=== PATIENT | female | born 1985 | race Caucasian/White ===

== ENCOUNTER → 2016-06-14 | Outpatient (CLI) | payer OTHER ==
[~2016-06-14] MED LIST: /DIVA50TA PO; /QUET10TA OR; /QUET10TA PO; ABIL15TA PO; ABIL1TAB5 PO; COGE1INJ PO; COGENTIN PO; DEPA250T2 PO; DEPA500T OR; DEPA500T2 OR; DEPA500T2 PO; FLAG500T PO; HALD100I2 IM; HALDOL PO; LAMI50TA2 PO; LATU120T PO; LATU40TA PO; LIDO1DIS2 TD; LITH150C PO; LITH300T2 PO; LITH600C PO; MACR100C3 PO; NAPR375T2 PO; OLAN15TA PO; PERC5TAB6 PO; PRENTAB7 PO; QUET30TA OR; TRAZ100T4 PO; TRAZ150T PO; VIST25CA PO; VIST50CA PO; ZYPR10TA PO
[2016-06-14 13:26] LABS: BASO % 0.4 % (0.0-1.0); EOS # 0.2 K/mm3 (0.0-0.50); LARGE UNSTAINED CELL # 0.2 K/mm3 (0.0-0.4); LARGE UNSTAINED CELL % 2.6 % (0.0-4.0); LYMPH # 3.5 K/mm3 (1.5-6.5); LYMPH % 44.4 % (24.0-44.0); MEAN CORPUSCULAR HEMOGLOBIN 29.1 pg (27.0-33.0); MEAN CORPUSCULAR HGB CONC 32.6 g/dl (32.0-36.5); MEAN CORPUSCULAR VOLUME 89.3 fl (80.0-96.0); MONO # 0.4 K/mm3 (0.0-0.8); MONO % 5.6 % (0.0-5.0); NEUTROPHILS # 3.5 K/mm3 (1.8-7.7); NEUTROPHILS % 44.1 % (36.0-66.0); PLATELET COUNT, AUTOMATED 201 k/mm3 (150-450); RED CELL DISTRIBUTION WIDTH 12.7 % (11.5-14.5); WHITE BLOOD COUNT 7.8 K/mm3 (4.0-10.0)
== END ==
LOC: M SMT 10:52
PROVIDERS: ATTEND Specialist
DX: D69.6 Thrombocytopenia, unspecified (principal)

== ENCOUNTER → 2016-10-10 | Outpatient (CLI) | payer OTHER ==
--- NOTE | 2016-10-11 12:37 | REP ---
NUCLEAR THYROID UPTAKE AND SCAN: Following the oral administration of 379 microcuries of Iodine 123 of sodium iodine, thyroid uptake is measured. The 24 hour uptake is 21.6% which is slightly below the normal range of 25-35%. Thyroid scan is performed. Both the lobes appear relatively normal in size, right slightly larger than left. No focal hot or cold nodule is seen bilaterally. Signed by Sagar Macedo MD 10/11/2016 04:08 P
== END ==
LOC: M RAD 10:30
PROVIDERS: ATTEND Family Medicine
DX: E05.90 Thyrotoxicosis, unspecified without thyrotoxic crisis or storm (principal)

== ENCOUNTER 2016-10-16 17:53 | Emergency (ER) | payer OTHER ==
[~2016-10-16] VITALS: Ht 154.9 cm; Wt 63.5 kg
[2016-10-16 18:47] LABS: MEAN CORPUSCULAR HEMOGLOBIN 28.8 pg (27.0-33.0); MEAN CORPUSCULAR HGB CONC 33.2 g/dl (32.0-36.5); MEAN CORPUSCULAR VOLUME 86.7 fl (80.0-96.0); RED CELL DISTRIBUTION WIDTH 13.1 % (11.5-14.5); WHITE BLOOD COUNT 11.3 K/mm3 (4.0-10.0)
[2016-10-16 18:53] LABS: CONTROL LINE HCG INT CTR LINE PRESENT
[2016-10-16 19:04] LABS: METHADONE URINE NEGATIVE (NEGATIVE)
[2016-10-16 19:10] LABS: ALBUMIN/GLOBULIN RATIO 1.38 (1.00-1.93); ALKALINE PHOSPHATASE 69 U/L (45-117); ALT/SGPT 82 U/L (12-78); ANION GAP 10 MEQ/L (8-16); AST/SGOT 56 U/L (15-37); BILIRUBIN,DIRECT 0.2 MG/DL (0.0-0.2); BILIRUBIN,TOTAL 0.5 MG/DL (0.2-1.0); BLOOD UREA NITROGEN 13 MG/DL (7-18); CALCIUM LEVEL 8.6 MG/DL (8.5-10.1); CARBON DIOXIDE LEVEL 26 MEQ/L (21-32); CHLORIDE LEVEL 103 MEQ/L (98-107); CREATININE FOR GFR 0.69 MG/DL (0.55-1.02); GLOMERULAR FILTRATION RATE > 60.0 (>60); GLUCOSE, FASTING 123 MG/DL (70-105); POTASSIUM SERUM 3.4 MEQ/L (3.5-5.1); SODIUM LEVEL 139 MEQ/L (136-145); TOTAL PROTEIN 6.9 GM/DL (6.4-8.2)
[2016-10-16] MEDS ORDERED: HALOPERIDOL 5 MG/ML VIAL (J1630) IM STA (19:37)
[2016-10-16] MEDS ORDERED: LORazepam 2 MG/ML VIAL (J2060) IM STA (19:37)
[2016-10-16] MEDS ORDERED: diphenhydrAMINE INJ 50MG/ML VIAL (J1200) IM STA (19:37)
[2016-10-17] MEDS ORDERED: LORazepam 2 MG/ML VIAL (J2060) IM ONE ×2 (05:00→06:00)
[2016-10-17] MEDS ORDERED: ACETAMINOPHEN TAB 650MG DOSE (2X325MG) PO ONE (05:30)
[2016-10-17] MEDS ORDERED: HALOPERIDOL 5 MG/ML VIAL (J1630) IM ONE (06:00)
[2016-10-17] MEDS ORDERED: diphenhydrAMINE INJ 50MG/ML VIAL (J1200) IM ONE (06:00)
[2016-10-17] MEDS ORDERED: AMMONIA AROMATIC INHALANT (FLOOR STOCK) As Ordered ONE ×2 (08:57→10:16)
[2016-10-17 15:10] VITALS: BP 110/68
--- NOTE | 2016-10-17 21:02 | ECGEPIP ---
Stationary ECG Study [facility] - ED Test Date: 2016-10-17 Pat Name: DOROTEO AC Department: Room: - Gender: F [employer]: : 1985 Requested By: KATHY Palacios Order Number: [id number] Reading MD: Jose Bergman Measurements Intervals [place] Rate: 78 P: 67 [place]: 139 QRS: 89 QRSD: 99 T: 49 QT: 386 QTc: 440 Interpretive Statements SINUS RHYTHM WITH SINUS ARRHYTHMIA DIFFUSE ST ELEVATION - EARLY REPOLARIZATION VS PERICARDITIS CW 01/10/14 - RATE DECREASED ST SEGMENTS MORE ELEVATED CLINICALLY CORRELATE Electronically Signed On 10-17-2016 21:02:30 EDT by Jose Bergman
[2016-10-18] MEDS ORDERED: SUMA25TA3 PO (14:11)
[2016-10-18] MEDS ORDERED: TOPA25TA10 PO (14:11)
[2016-10-18] MEDS ORDERED: KETO10TAB PO (14:13)
== END 2016-10-17 15:13 ==
LOC: M ED 19:16
DX: F29 Unspecified psychosis not due to a substance or known physiological condition (principal); R45.851 Suicidal ideations; Z79.899 Other long term (current) drug therapy; Z88.5 Allergy status to narcotic agent; Z88.8 Allergy status to other drugs, medicaments and biological substances; J30.1 Allergic rhinitis due to pollen; J30.89 Other allergic rhinitis; Z91.040 Latex allergy status; F17.210 Nicotine dependence, cigarettes, uncomplicated

== ENCOUNTER 2016-10-17 16:39 | Inpatient (IN) | payer OTHER ==
[~2016-10-17] VITALS: Ht 154.9 cm; Wt 65.2 kg
[2016-10-18] MEDS ORDERED: ACETAMINOPHEN TAB 650MG DOSE (2X325MG) PO ONE (01:30)
[2016-10-18] MEDS ORDERED: NICOTINE 21MG/24HR 1 EA TRANSDERMAL TD ONE (10:00)
[2016-10-18 12:11] VITALS: BP 143/83
[2016-10-18] MEDS ORDERED: SUMA25TA3 PO (14:11)
[2016-10-18] MEDS ORDERED: TOPA25TA10 PO (14:11)
[2016-10-18] MEDS ORDERED: KETO10TAB PO (14:13)
--- NOTE | 2016-10-18 15:58 | HPEPDOC ---
Medical History and Physical Date of Admission October 18, 2016 at 11:12 History and Physical PCP: Dr Storey ATTENDING: Dr. Jaiden Delgado HPI: 31yoF admitted to [facility] for depressive disorder, being medically examined today. No acute medical complaints today. Denies any fevers, chills, weakness, fatigue, BEARD, CP, SOB, cough, palpitations, abdominal pain, N/V/D or changes in bowel or bladder habits. PMHx: ITP Bipolar disorder Schizophrenia Vitamin D Def Thyroid nodule migraine BEARD PSHX: C section x 3 tonsillectomy tubal ligation. SOCHX: Resides in: [facility] Marital Status: single Kids: 3 Employment: unemployed Tobacco use: 1ppd ETOH:denies Illicit Drugs: "spice" x 1 recently, marijuana daily IV Drug Use: Denies Tattoos done unprofessionally:x 1 FAMHX: Mother: Alive, unknown Father: Alive, well Siblings: Alive, depression Children: Alive, well Unexpected deaths due to medical reasons: None. ROS: As noted in HPI, otherwise 11pt ROS of systems reviewed and remarkable only for LMP unknown PE: GEN: 31yoF, appears stated age. Well-nourished, well developed. No acute distress. Alert and oriented x 3. Pressured, tangential speech. HEENT: Normocephalic, atraumatic. Pupils are equal, round, and reactive to light. Extraocular movements are intact. No nystagmus appreciated. Sclera are nonicteric. Conjunctiva without injection. Nose midline. Nasal turbinates without bogginess. EACs both patent BL. TMs both visualized and garcia with good cone of light, no bulging or erythema. No facial asymmetry. Moist mucous membranes. Dentition fair. Pharynx pink and moist, no cobblestoning. Neck supple , trachea midline. No lymphadenopathy or thyromegaly appreciated. CHEST: Regular rate and rhythm, +S1, +S2 LUNGS: Clear to auscultation bilaterally. No wheezes, rales, or rhonchi. Breathing appears symmetric and easy. Patient is speaking in full sentences. No accessory muscle use. ABD: Round, soft, non-tender, non-distended. +Bowel sounds throughout. No rebound or guarding. No costovertebral angle tenderness. EXT: Pulses 2+ bilaterally dorsalis pedis and radial. No lower extremity edema appreciated. SKIN: [place], dry, warm. Capillary refill <2sec. No rashes. NEURO: Alert and oriented x 3. Cranial nerves III-XII are intact. No focal deficits appreciated. EKG: pending. A&P: 31yoF admitted to [facility] for depressive disorder 1. Psych. Plan per Psychiatry. Obtain baseline EKG to assure the safety of psychiatric medications as they can prolong the QT interval. 2. Nicotine dependence. Patch available. 3. Tattoo done unprofessionally. Requests HIV/Hepatitis screening. 4. Follow up with PCP on discharge. 5. Substance use. Per psychiatry. Continue with MVI, Thiamine, and Folic Acid supplementation. 6. Recent treatment for STI per pt. Check UA/UC, gonorrhea and chlamydia screen. 7. Hypokalemia. Recheck CMP. 8. Elevated LFTs. Hepatitis profile as above and recheck CMP. 9. Abnormal TFT. Pt states has been referred to Endocrine, appt pending. Recheck TFT. 10. Vitamin D Def. Check Vitamin D level. Vital Signs Vital Signs Date Time Temp Pulse Resp B/P (MAP) Pulse Ox O2 Delivery O2 Flow Rate FiO2 10/18/16 12:11 98.0 104 16 143/83 (103) Room Air 10/18/16 11:53 98 Laboratory Data Labs 24H Item Value Date Time White Blood Count 11.3 K/mm3 H 10/16/161827 Red Blood Count 4.34 M/mm3 10/16/161827 Hemoglobin 12.5 g/dl 10/16/161827 Hematocrit 37.6 % 10/16/161827 Mean Corpuscular Volume 86.7 fl 10/16/161827 Mean Corpuscular Hemoglobin 28.8 pg 10/16/161827 Mean Corpuscular Hemoglobin Concent 33.2 g/dl 10/16/161827 Red Cell Distribution Width 13.1 % 10/16/161827 Platelet Count 213 k/mm3 10/16/161827 Sodium Level 139 MEQ/L 10/16/161827 Potassium Level 3.4 MEQ/L L 10/16/161827 Chloride Level 103 MEQ/L 10/16/161827 Carbon Dioxide Level 26 MEQ/L 10/16/161827 Anion Gap 10 MEQ/L 10/16/161827 Blood Urea Nitrogen 13 MG/DL 10/16/161827 Creatinine 0.69 MG/DL 10/16/161827 Glomerular Filtration Rate > 60.0 10/16/161827 Fasting Glucose 123 MG/DL H 10/16/168 Calcium Level 8.6 MG/DL 10/16/168 Total Bilirubin 0.5 MG/DL 10/16/168 Direct Bilirubin 0.2 MG/DL 10/16/161827 Aspartate Amino Transf (AST/SGOT) 56 U/L H 10/16/168 Alanine Aminotransferase (ALT/SGPT) 82 U/L H 10/16/161827 Alkaline Phosphatase 69 U/L 10/16/161827 Total Protein 6.9 GM/DL 10/16/161827 Albumin 4.0 GM/DL 10/16/161827 Albumin/Globulin Ratio 1.38 10/16/161827 Thyroid Stimulating Hormone (TSH) 0.352 uIU/ML L 10/16/161827 Human Chorionic Gonadotropin, Qual NEGATIVE 10/16/161827 Home Medications Scheduled Topiramate (Topamax) 25 Mg Tab, 25 MG PO DAILY for MOOD Scheduled PRN Ketorolac Tromethamine (Ketorolac Tromethamine) 10 Mg Tab, 10 MG PO QIDP PRN for HEADACHE Sumatriptan Succinate (Sumatriptan Succinate) 25 Mg Tab, 25 MG PO DAILYPRN PRN for HEADACHE Allergies Coded Allergies: Codeine (Verified Allergy, Intermediate, HIVES, VOMITING, 12/30/13) Hydrocodone (Verified Allergy, Intermediate, HIVES, ITCHING, 04/21/16) Dust (Verified Allergy, Unknown, 06/06/06) Pollen Extract (Verified Allergy, Unknown, 09/03/12) Ibuprofen (Verified Adverse Reaction, Severe, PT CANNOT TAKE DUE TO ITP, 04/21/16) Aspirin (Verified Adverse Reaction, Intermediate, NOT ALLERGIC, BUT ITP, ) Latex (Verified Adverse Reaction, Mild, ITCHING FROM CONDOMS, 04/21/16) Angelina Sutherland October 18, 2016 15:58
[2016-10-18] MEDS ORDERED: HALOPERIDOL 5 MG TAB PO ONE (16:00)
[2016-10-18] MEDS: ACETAMINOPHEN TAB 650MG DOSE (2X325MG) PO PRN (16:20)
[2016-10-18 18:23] VITALS: BP 108/70
[2016-10-18] MEDS: traZODone 50 MG TAB PO PRN (19:38)
[2016-10-18] MEDS: HALOPERIDOL 5 MG TAB PO PRN (19:39)
[2016-10-18] MEDS: SUMAtriptan SUCCINATE 25 MG TAB PO PRN (19:39)
[2016-10-18] MEDS: diphenhydrAMINE 25 MG CAP PO PRN (19:39)
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
--- NOTE | 2016-10-19 06:12 | ECGEPIP ---
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
[2016-10-19 06:23] VITALS: BP 119/79
[2016-10-19 07:26] LABS: MEAN CORPUSCULAR HEMOGLOBIN 29.3 pg (27.0-33.0); MEAN CORPUSCULAR HGB CONC 32.1 g/dl (32.0-36.5); MEAN CORPUSCULAR VOLUME 91.1 fl (80.0-96.0); RED CELL DISTRIBUTION WIDTH 13.1 % (11.5-14.5); WHITE BLOOD COUNT 7.8 K/mm3 (4.0-10.0)
[2016-10-19 07:49] LABS: ALBUMIN 3.5 GM/DL (3.2-5.2); ALBUMIN/GLOBULIN RATIO 1.25 (1.00-1.93); ALKALINE PHOSPHATASE 62 U/L (45-117); ALT/SGPT 44 U/L (12-78); ANION GAP 5 MEQ/L (8-16); AST/SGOT 18 U/L (15-37); BILIRUBIN,TOTAL 0.2 MG/DL (0.2-1.0); BLOOD UREA NITROGEN 12 MG/DL (7-18); CALCIUM LEVEL 8.4 MG/DL (8.5-10.1); CARBON DIOXIDE LEVEL 30 MEQ/L (21-32); CHLORIDE LEVEL 107 MEQ/L (98-107); GLOMERULAR FILTRATION RATE > 60.0 (>60); GLUCOSE, FASTING 102 MG/DL (70-105); POTASSIUM SERUM 3.9 MEQ/L (3.5-5.1); SODIUM LEVEL 142 MEQ/L (136-145); TOTAL PROTEIN 6.3 GM/DL (6.4-8.2)
[2016-10-19 07:56] LABS: THYROXINE (T4) 8.9 UG/DL (4.5-12.0)
[2016-10-19] MEDS: ACETAMINOPHEN TAB 650MG DOSE (2X325MG) PO PRN (08:47)
[2016-10-19] MEDS ORDERED: HALOPERIDOL 5 MG TAB PO SCH (09:00)
[2016-10-19] MEDS ORDERED: NICOTINE 21MG/24HR 1 EA TRANSDERMAL TD SCH (09:00)
[2016-10-19] MEDS ORDERED: BENZTROPINE 1 MG TAB PO STA (15:39)
[2016-10-19 18:14] VITALS: BP 130/86
[2016-10-19] MEDS: diphenhydrAMINE 25 MG CAP PO PRN (18:16)
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
[2016-10-19] MEDS: BENZTROPINE 1 MG TAB PO SCH (20:51)
[2016-10-19] MEDS: traZODone 50 MG TAB PO PRN (20:51)
[2016-10-19] MEDS: SUMAtriptan SUCCINATE 25 MG TAB PO PRN (21:28)
[2016-10-20] MEDS: diphenhydrAMINE 25 MG CAP PO PRN (01:07)
[2016-10-20] MEDS: ACETAMINOPHEN TAB 650MG DOSE (2X325MG) PO PRN ×3 (01:08→14:36)
[2016-10-20 06:39] VITALS: BP 111/63
[2016-10-20] MEDS: HALOPERIDOL 5 MG TAB PO SCH (08:39)
[2016-10-20] MEDS: BENZTROPINE 1 MG TAB PO SCH (08:39)
[2016-10-20] MEDS: NICOTINE POLACRILEX 2 MG GUM PO PRN ×4 (08:42→16:40)
[2016-10-20] MEDS: HALOPERIDOL 5 MG TAB PO PRN (13:10)
--- NOTE | 2016-10-20 15:53 | MHIPNPDOC ---
[facility] Progress Note Progress Note DATE OF SERVICE: 10/20/16 INTERVAL HISTORY: Medication Side effects: Made no complain about any side effects from her medications today Behavior/events: Has been less distorted and more engaging in the social milieu Group Attendance: Has attended groups more frequently, was observed for 1 hour during this provider's medication information group. The patient did not want to meet individually as she was "setting up an appointment for her kids". She had talked to the attending psychiatrist's earlier in the day stating that she at first wanted to leave but then realize she needed to stay because she need to get on the "best medication". Psychiatric Symptoms: The patient appears to be clearing and becoming less distorted. She appears to be less hyperverbal than yesterday and more able to control her temper, although she has had some angry outbursts over the last evening. VITAL SIGNS: See below. NEW TEST RESULTS: See below CURRENT MEDICATIONS: See below. MENTAL STATUS EXAMINATION: General: Well dressed with good hygiene Speech: Spontaneous and fluid Thought processes: Mildly circumstantial Thought content: Perseverative Abstract reasoning, and computation: Intact Description of associations: Intact Description of abnormal or psychotic thoughts: Makes no threats towards herself or others. Does endorse some odd beliefs. Judgment: Poor Insight: Poor Orientation: Appears alert and orientated just rounding's Recent and remote memory: Intact Attention span and concentration: Improved Fund of knowledge: Adequate Mood: "Fine" Affect: Somewhat irritable DIAGNOSES: 1. Synthetic marijuana intoxication. 2. Antisocial personality disorder. 3. Cannabis use disorder, severe, in controlled setting. ASSESSMENT: 31-year-old woman with synthetic spice intoxication underlying antisocial personality disorder whom appears to be resolving with a small dose of Haldol. MANAGEMENT PLAN: Medications: continue Haldol 2.5 mg daily and Cogentin 1 mg twice a day. [place] has immune stimulating properties that could be problematic in a patient with ITP, risk doesn't out weight benefit especially with patient having a history of non-compliance in the past once going outpatient. Psychotherapy: Encourage group attendance Social: Possible discharge on Monday Misc: die lay out worker neck with patient's community liaison officer to gather further information Disposition: The patient will need of further inpatient stay to address psychotic symptoms and disposition needs. TIME SPENT: 25 minutes. Vital Signs Vital Signs Date Time Temp Pulse Resp B/P (MAP) Pulse Ox O2 Delivery O2 Flow Rate FiO2 10/20/16 06:39 99.7 96 18 111/63 (79) 10/19/16 06:23 Room Air 10/18/16 11:53 98 Current Medications Current Medications Acetaminophen (Tylenol Tab) 650 mg Q6HP PRN PO HEADACHE or DISCOMFORT Last administered on 10/20/16 14:36; Start 10/18/16 at 15:45; Stop 11/17/16 at 15:44 Benztropine Mesylate (Cogentin) 1 mg BID PO Last administered on 10/20/16 08: 39; Start 10/19/16 at 21:00; Stop 11/18/16 at 20:59 Benztropine Mesylate (Cogentin) 1 mg STAT STAT PO Last administered on 15:47; Start 10/19/16 at 15:39; Stop 10/19/16 at 15:42; Status DC Diphenhydramine HCl (Benadryl) 25 mg Q6HP PRN PO ANXIETY/AGITATION Last administered on 10/20/16 01:07; Start 10/18/16 at 15:45; Stop 11/17/16 at 15:44 Haloperidol (Haldol) 2.5 mg DAILY PO Last administered on 10/20/16 08:39; Start 10/20/16 at 09:00; Stop 11/19/16 at 08:59 Haloperidol (Haldol) 5 mg DAILY PO Last administered on 10/19/16 08:46; Start 10/19/16 at 09:00; Stop 10/19/16 at 19:15; Status DC Haloperidol (Haldol) 5 mg Q6HP PRN PO ANXIETY/AGITATION Last administered on 13:10; Start 10/18/16 at 15:45; Stop 11/17/16 at 15:44 Home Med (Med Rec Complete!) ASDIRECTED XX ; Start 10/17/16 at 19:45; Stop at 19:45; Status DC Nicotine (Nicoderm Cq 21mg) 1 patch DAILY TD Last administered on 10/19/16 10: 53; Start 10/19/16 at 09:00; Stop 10/19/16 at 15:42; Status DC Nicotine (Nicorette) 2 mg Q2HP PRN PO NICOTINE WITHDRAWAL Last administered on 10/20/16 14:35; Start 10/19/16 at 10:45; Stop 11/18/16 at 10:44 Sumatriptan Succinate (Imitrex) 25 mg DAILYPRN PRN PO HEADACHE Last administered on 10/19/16 21:28; Start 10/18/16 at 15:45; Stop 11/17/16 at 15:44 Trazodone HCl (Desyrel) 50 mg QHSP PRN PO INSOMNIA Last administered on 20:51; Start 10/18/16 at 15:45; Stop 11/17/16 at 15:44 Allergies Coded Allergies: Codeine (Verified Allergy, Intermediate, HIVES, VOMITING, 12/30/13) Hydrocodone (Verified Allergy, Intermediate, HIVES, ITCHING, 04/21/16) Dust (Verified Allergy, Unknown, 06/06/06) Pollen Extract (Verified Allergy, Unknown, 09/03/12) Ibuprofen (Verified Adverse Reaction, Severe, PT CANNOT TAKE DUE TO ITP, 04/21/16) Aspirin (Verified Adverse Reaction, Intermediate, NOT ALLERGIC, BUT ITP, ) Latex (Verified Adverse Reaction, Mild, ITCHING FROM CONDOMS, 04/21/16) GME ATTESTATION My preceptor for this patient encounter was physically present in the building during the encounter and was fully available. As needed, all aspects of the patient interview, examination, medical decision making process, and medical care plan development were reviewed and approved by the preceptor. Preceptor is aware and concurs with the plan as stated in the body of this note and will attest to such by his/her cosignature. DAGO GAMEZ DO October 20, 2016 15:53
[2016-10-20 18:00] VITALS: BP 138/79
[2016-10-20] MEDS ORDERED: LITHIUM CARBONATE 300 MG **CR** TAB PO SCH (21:00)
[2016-10-21] MEDS: HALOPERIDOL 5 MG TAB PO PRN (01:33)
[2016-10-21] MEDS: BENZTROPINE 1 MG TAB PO SCH ×3 (01:33→20:21)
[2016-10-21] MEDS: traZODone 50 MG TAB PO PRN ×2 (01:33→22:18)
[2016-10-21] MEDS: ACETAMINOPHEN TAB 650MG DOSE (2X325MG) PO PRN ×2 (01:33→15:30)
[2016-10-21] MEDS: NICOTINE POLACRILEX 2 MG GUM PO PRN ×3 (05:58→10:39)
[2016-10-21 06:39] VITALS: BP 116/68
[2016-10-21] MEDS: HALOPERIDOL 5 MG TAB PO SCH (08:04)
[2016-10-21] MEDS ORDERED: FLUCONAZOLE 50MG TABLET PO ONE (10:00)
--- NOTE | 2016-10-21 10:02 | IPNPDOC ---
Subjective Date Seen The patient was seen on 10/21/16. Subjective Chief Complaint/HPI The patient is a 31-year-old female admitted with a reason for visit of Depressive Disorder. Events since last encounter Pt reports vaginal itching and whitish discharge. No lesions, rash. H/O vaginal candidiasis. Objective Physical Examination General Exam: Positive: Alert Eye Exam: Positive: PERRLA ENT Exam: Positive: Atraumatic Chest Exam: Positive: Clear to auscultation, Normal air movement Heart Exam: Positive: Rate Normal, Regular Rhythm, Normal S1, Normal S2, Negative: Murmurs, Rubs Abdomen Exam: Positive: Normal bowel sounds, Soft, Negative: Tenderness, Hepatospenomegaly Skin Exam: Positive: Nl turgor and temperature Assessment /Plan Problems (1) Vaginal candidiasis Problem Text: * Pt had STI screening on Admission. Neg Jo[place]/Chlamydia, RPR, HIV/Hep. * Pt reports vaginal itching and whitish discharge. No lesion/vesicles. * Pt states was recently treated with Diflucan for Vag candidiasis, was supposed to repeat dose x 1 but never did so. * Diflucan x 1 today. * Consider REPAIR TABLE OPERATOR if sx do not resolve. (2) Abnormal TSH Problem Text: * repeat TFTs WNL. * Has outpt F/U with PCP and Endocrine referral pending. Plan/VTE VTE Prophylaxis Ordered?: No (ambulatory) VS, I&O, 24H, Fishbone Vital Signs/I&O Vital Signs Date Time Temp Pulse Resp B/P (MAP) Pulse Ox O2 Delivery O2 Flow Rate FiO2 10/21/16 06:39 98.2 91 18 116/68 (84) 10/19/16 06:23 Room Air 10/18/16 11:53 98 Laboratory Data Microbiology Microbiology 10/18/16 Urine Culture - Final, Complete Angelina Sutherland October 21, 2016 10:02
[2016-10-21] MEDS: NICOTINE 14 MG/24 HR TRANSDERMAL TD SCH (11:16)
[2016-10-21] MEDS: SUMAtriptan SUCCINATE 25 MG TAB PO PRN (17:15)
[2016-10-21 18:16] VITALS: BP 130/73
[2016-10-21] MEDS ORDERED: LITHIUM CARBONATE 300 MG **CR** TAB PO SCH (21:00)
--- NOTE | 2016-10-21 21:44 | MHIPNPDOC ---
[facility] Progress Note Progress Note Date of service October 21, 2016 INTERVAL HISTORY: Medication Side effects: the patient reports no side effects from her Haldol currently Behavior/events: has become more irritated and frequently changes her mind about medications potential discharge states Group Attendance: still pierced to attend groups Psychiatric Symptoms: patient is much less hyper verbal than she has when she presented. She appears to suffer from impulsive episodes of anger. She does not appear to be as psychotic as before. She described she feeling more clear and less paranoid and delusional she was when she 1st arrived. She described feeling more in control of her faculties. VITAL SIGNS: See below. NEW TEST RESULTS: See below CURRENT MEDICATIONS: See below. MENTAL STATUS EXAMINATION: General: Well dressed with good hygiene Speech: while pressure Thought processes: circumstantial Thought content: fluctuating thoughts Abstract reasoning, and computation: Intact Description of associations: Intact Description of abnormal or psychotic thoughts: makes no threats against herself or others. Does not appear to be responding to internal stimuli. Does not appear to be endorsing any bizarre or paranoid ideation. Judgment: poor Insight: poor Orientation: Alert and orientated 3 Recent and remote memory: Intact Attention span and concentration: Intact Fund of knowledge: Adequate Mood: "fine" Affect: Euthymic with a constricted DIAGNOSES: 1. Synthetic marijuana intoxication. 2. Antisocial personality disorder. 3. Cannabis disorder, severe, and controlled setting 4. Nicotine use disorder, severe, on maintenance treatment. ASSESSMENT: improving on small dose of neuroleptic, patient desires to be on lithium feels that it was helpful and is willing to take risk of it reactivating ITP MANAGEMENT PLAN: Medications: start lithium controlled-release 300 milligrams at night, continue helpful 2.5 mg with Cogentin 1 mg b.i.d. Psychotherapy: encourage group attendance Social: discharge possible Monday Misc: none Disposition: The patient will need of further inpatient stay to address psychosis and disposition needs. TIME SPENT: 15 minutes. Vital Signs Vital Signs Date Time Temp Pulse Resp B/P (MAP) Pulse Ox O2 Delivery O2 Flow Rate FiO2 10/21/16 18:16 98.5 90 18 130/73 (92) 10/19/16 06:23 Room Air 10/18/16 11:53 98 Current Medications Current Medications Acetaminophen (Tylenol Tab) 650 mg Q6HP PRN PO HEADACHE or DISCOMFORT Last administered on 10/21/16 15:30; Start 10/18/16 at 15:45; Stop 11/17/16 at 15:44 Benztropine Mesylate (Cogentin) 1 mg BID PO Last administered on 10/21/16 20: 21; Start 10/19/16 at 21:00; Stop 11/18/16 at 20:59 Benztropine Mesylate (Cogentin) 1 mg STAT STAT PO Last administered on 15:47; Start 10/19/16 at 15:39; Stop 10/19/16 at 15:42; Status DC Diphenhydramine HCl (Benadryl) 25 mg Q6HP PRN PO ANXIETY/AGITATION Last administered on 10/20/16 01:07; Start 10/18/16 at 15:45; Stop 11/17/16 at 15:44 Haloperidol (Haldol) 2.5 mg DAILY PO Last administered on 10/21/16 08:04; Start 10/20/16 at 09:00; Stop 11/19/16 at 08:59 Haloperidol (Haldol) 5 mg DAILY PO Last administered on 10/19/16 08:46; Start 10/19/16 at 09:00; Stop 10/19/16 at 19:15; Status DC Haloperidol (Haldol) 5 mg Q6HP PRN PO ANXIETY/AGITATION Last administered on 01:33; Start 10/18/16 at 15:45; Stop 11/17/16 at 15:44 Home Med (Med Rec Complete!) ASDIRECTED XX ; Start 10/17/16 at 19:45; Stop at 19:45; Status DC [place] Carbonate (Lithobid Cr) 300 mg QHS PO ; Start 10/20/16 at 21:00; Stop at 21:00; Status DC [place] Carbonate (Lithobid Cr) 300 mg QHS PO Last administered on 10/21/16 20 :21; Start 10/21/16 at 21:00; Stop 11/20/16 at 20:59 Nicotine (Nicoderm Cq 14mg) 1 patch DAILY TD Last administered on 10/21/16 11: 16; Start 10/21/16 at 09:00; Stop 11/20/16 at 08:59 Nicotine (Nicoderm Cq 21mg) 1 patch DAILY TD Last administered on 10/19/16 10: 53; Start 10/19/16 at 09:00; Stop 10/19/16 at 15:42; Status DC Nicotine (Nicorette) 2 mg Q2HP PRN PO NICOTINE WITHDRAWAL Last administered on 10/21/16 10:39; Start 10/19/16 at 10:45; Stop 10/21/16 at 10:48; Status DC Sumatriptan Succinate (Imitrex) 25 mg DAILYPRN PRN PO HEADACHE Last administered on 10/21/16 17:15; Start 10/18/16 at 15:45; Stop 11/17/16 at 15:44 Trazodone HCl (Desyrel) 50 mg QHSP PRN PO INSOMNIA Last administered on 01:33; Start 10/18/16 at 15:45; Stop 11/17/16 at 15:44 Allergies Coded Allergies: Codeine (Verified Allergy, Intermediate, HIVES, VOMITING, 12/30/13) Hydrocodone (Verified Allergy, Intermediate, HIVES, ITCHING, 04/21/16) Dust (Verified Allergy, Unknown, 06/06/06) Pollen Extract (Verified Allergy, Unknown, 09/03/12) Ibuprofen (Verified Adverse Reaction, Severe, PT CANNOT TAKE DUE TO ITP, 04/21/16) Aspirin (Verified Adverse Reaction, Intermediate, NOT ALLERGIC, BUT ITP, ) Latex (Verified Adverse Reaction, Mild, ITCHING FROM CONDOMS, 04/21/16) GME ATTESTATION My preceptor for this patient encounter was physically present in the building during the encounter and was fully available. As needed, all aspects of the patient interview, examination, medical decision making process, and medical care plan development were reviewed and approved by the preceptor. Preceptor is aware and concurs with the plan as stated in the body of this note and will attest to such by his/her cosignature. DAGO GAMEZ DO October 21, 2016 21:44
[2016-10-22 06:18] VITALS: BP 117/65
[2016-10-22] MEDS: HALOPERIDOL 5 MG TAB PO SCH (08:03)
[2016-10-22] MEDS: BENZTROPINE 1 MG TAB PO SCH ×2 (08:03→20:32)
[2016-10-22] MEDS: NICOTINE 14 MG/24 HR TRANSDERMAL TD SCH (08:04)
[2016-10-22] MEDS: diphenhydrAMINE 25 MG CAP PO PRN ×2 (15:22→23:02)
[2016-10-22] MEDS: ACETAMINOPHEN TAB 650MG DOSE (2X325MG) PO PRN (17:03)
[2016-10-22 18:18] VITALS: BP 111/62
[2016-10-22] MEDS: PRAZOSIN 1 MG CAP PO SCH (20:32)
[2016-10-22] MEDS: LITHIUM CARBONATE 450 MG **CR** TAB PO SCH (20:32)
--- NOTE | 2016-10-22 21:30 | MHIPNPDOC ---
[facility] Progress Note Progress Note DATE OF SERVICE: 10/22/16 INTERVAL HISTORY: Medication Side effects: patient reports no side effects from her lithium or Haldol currently Behavior/events: has been more social, less bizarre and more cooperative with the treatment team. Group Attendance: has been attending groups frequently Psychiatric Symptoms: patient ports that she's feeling much more "in control" the start of the lithium. She states that she's feeling less ken and that her anxiety is better controlled. She describes that her distorted thoughts and paranoia have resolved. She describes that she finds the lithium impulsivity and her rage episodes. She described having difficulty with her mother but feeling much more control and less violent the start of the lithium. VITAL SIGNS: See below. NEW TEST RESULTS: See below CURRENT MEDICATIONS: See below. MENTAL STATUS EXAMINATION: General: Well dressed with good hygiene Speech: Spontaneous and fluid Thought processes: Linear and logical Thought content: perseverative on her mother Abstract reasoning, and computation: Intact Description of associations: Intact Description of abnormal or psychotic thoughts:Denies any suicidal or homicidal ideation. Denies any auditory or visual hallucinations. Does not appear to be responding to internal stimuli. Does not appear to be endorsing any bizarre or paranoid ideation. Judgment: poor to fair Insight: poor to fair Orientation: Alert and orientated 3 Recent and remote memory: Intact Attention span and concentration: Intact Fund of knowledge: Adequate Mood: "okay" Affect: Euthymic with a full range DIAGNOSES: 1. Synthetic marijuana intoxication. 2. Antisocial personality disorder. 3. Cannabis use disorder, severe, in control setting. ASSESSMENT: improving approaching stability for discharge MANAGEMENT PLAN: Medications: increase lithium to 450 mg at night, discontinue Haldol and Cogentin at this time Psychotherapy: encouraged attendance Social: discharge early next week Misc: patient is aware of possible side effects of increasing her ITP but is desirous to continue the lithium. Disposition: The patient will need of further inpatient stay to address disposition needs. TIME SPENT: 20 minutes. Vital Signs Vital Signs Date Time Temp Pulse Resp B/P (MAP) Pulse Ox O2 Delivery O2 Flow Rate FiO2 10/22/16 20:32 118/78 10/22/16 18:18 98.8 70 16 10/22/16 06:18 Room Air 10/18/16 11:53 98 Current Medications Current Medications Acetaminophen (Tylenol Tab) 650 mg Q6HP PRN PO HEADACHE or DISCOMFORT Last administered on 10/22/16 17:03; Start 10/18/16 at 15:45; Stop 11/17/16 at 15:44 Benztropine Mesylate (Cogentin) 1 mg BID PO Last administered on 10/22/16 20: 32; Start 10/19/16 at 21:00; Stop 11/18/16 at 20:59 Benztropine Mesylate (Cogentin) 1 mg STAT STAT PO Last administered on 15:47; Start 10/19/16 at 15:39; Stop 10/19/16 at 15:42; Status DC Diphenhydramine HCl (Benadryl) 25 mg Q6HP PRN PO ANXIETY/AGITATION Last administered on 10/22/16 15:22; Start 10/18/16 at 15:45; Stop 11/17/16 at 15:44 Haloperidol (Haldol) 2.5 mg DAILY PO Last administered on 10/22/16 08:03; Start 10/20/16 at 09:00; Stop 11/19/16 at 08:59 Haloperidol (Haldol) 5 mg DAILY PO Last administered on 10/19/16 08:46; Start 10/19/16 at 09:00; Stop 10/19/16 at 19:15; Status DC Haloperidol (Haldol) 5 mg Q6HP PRN PO ANXIETY/AGITATION Last administered on 01:33; Start 10/18/16 at 15:45; Stop 11/17/16 at 15:44 Home Med (Med Rec Complete!) ASDIRECTED XX ; Start 10/17/16 at 19:45; Stop at 19:45; Status DC [place] Carbonate (Eskalith-Cr) 450 mg QHS PO Last administered on 10/22/16 20 :32; Start 10/22/16 at 21:00; Stop 11/21/16 at 20:59 [place] Carbonate (Lithobid Cr) 300 mg QHS PO ; Start 10/20/16 at 21:00; Stop at 21:00; Status DC [place] Carbonate (Lithobid Cr) 300 mg QHS PO Last administered on 10/21/16 20 :21; Start 10/21/16 at 21:00; Stop 10/22/16 at 17:24; Status DC Nicotine (Nicoderm Cq 14mg) 1 patch DAILY TD Last administered on 10/22/16 08: 04; Start 10/21/16 at 09:00; Stop 11/20/16 at 08:59 Nicotine (Nicoderm Cq 21mg) 1 patch DAILY TD Last administered on 10/19/16 10: 53; Start 10/19/16 at 09:00; Stop 10/19/16 at 15:42; Status DC Nicotine (Nicorette) 2 mg Q2HP PRN PO NICOTINE WITHDRAWAL Last administered on 10/21/16 10:39; Start 10/19/16 at 10:45; Stop 10/21/16 at 10:48; Status DC Prazosin HCl (Minipress) 1 mg QHS PO Last administered on 10/22/16 20:32; Start 10/22/16 at 21:00; Stop 11/21/16 at 20:59 Sumatriptan Succinate (Imitrex) 25 mg DAILYPRN PRN PO HEADACHE Last administered on 10/21/16 17:15; Start 10/18/16 at 15:45; Stop 11/17/16 at 15:44 Trazodone HCl (Desyrel) 50 mg QHSP PRN PO INSOMNIA Last administered on 22:18; Start 10/18/16 at 15:45; Stop 11/17/16 at 15:44 Allergies Coded Allergies: Codeine (Verified Allergy, Intermediate, HIVES, VOMITING, 12/30/13) Hydrocodone (Verified Allergy, Intermediate, HIVES, ITCHING, 04/21/16) Dust (Verified Allergy, Unknown, 06/06/06) Pollen Extract (Verified Allergy, Unknown, 09/03/12) Ibuprofen (Verified Adverse Reaction, Severe, PT CANNOT TAKE DUE TO ITP, 04/21/16) Aspirin (Verified Adverse Reaction, Intermediate, NOT ALLERGIC, BUT ITP, ) Latex (Verified Adverse Reaction, Mild, ITCHING FROM CONDOMS, 04/21/16) GME ATTESTATION My preceptor for this patient encounter was physically present in the building during the encounter and was fully available. As needed, all aspects of the patient interview, examination, medical decision making process, and medical care plan development were reviewed and approved by the preceptor. Preceptor is aware and concurs with the plan as stated in the body of this note and will attest to such by his/her cosignature. DAGO GAMEZ DO October 22, 2016 21:30
[2016-10-22] MEDS: HALOPERIDOL 5 MG TAB PO PRN (23:02)
[2016-10-23 06:27] VITALS: BP 137/80
[2016-10-23] MEDS: NICOTINE 14 MG/24 HR TRANSDERMAL TD SCH (08:23)
[2016-10-23] MEDS: ACETAMINOPHEN TAB 650MG DOSE (2X325MG) PO PRN (08:45)
[2016-10-23] MEDS: diphenhydrAMINE 25 MG CAP PO PRN (11:25)
[2016-10-23 18:00] VITALS: BP 122/72
[2016-10-23] MEDS: LITHIUM CARBONATE 450 MG **CR** TAB PO SCH (20:16)
[2016-10-23 20:17] VITALS: BP 116/82
[2016-10-23] MEDS: PRAZOSIN 1 MG CAP PO SCH (20:17)
[2016-10-23] MEDS: traZODone 50 MG TAB PO PRN (22:36)
[2016-10-24 06:15] VITALS: BP 130/73
[2016-10-24] MEDS: NICOTINE 14 MG/24 HR TRANSDERMAL TD SCH (09:02)
[2016-10-24] MEDS ORDERED: LITH45TASA PO (10:49)
[2016-10-24] MEDS ORDERED: MINI1CAP PO (10:49)
--- NOTE | 2016-10-24 20:25 | MHDSPDOC ---
[facility] Discharge Summary Discharge Summary DATE OF ADMISSION: October 18, 2016 at 11:12 DATE OF DISCHARGE: October 24, 2016 at 11:15 DISCHARGE DIAGNOSES: 1. Synthetic marijuana intoxication. 2. Antisocial personality disorder. 3. Cannabis use disorder, severe, in controlled setting. REASON FOR ADMISSION: Homicidal ideation in the context of recent spice use CONSULTANTS INVOLVED: None TREATMENT AND PROGRESS ON THE UNIT : Legal status on admission: 9.39 Medication Management: Patient was started on Haldol to reduce the psychosis from her synthetic marijuana intoxication it was titrated down and removed after her psychosis resolved. She was then started on controlled release lithium and titrated up to 450 mg at night of which had good effect for controlling her impulsivity and moodiness. Psychotherapy: The patient did attend groups as she became less distorted. Behavior: The patient at times is irritable and would verbally lash out but compared to her previous admissions was much more controlled Discharge planning: The patient after resolving sufficiently well was slated for discharge. Outpatient recommendations: Continue lithium, patient is aware to continue being hydrated and of our concerns of reactivation of ITP the patient wishes to have a lithium Pending studies on discharge: None DISCHARGE ASSESSMENT: 31-year-old woman who presented a psychotic state after using synthetic marijuana she has a history of bipolar however she is more likely an antisocial personality disorder with frequent synthetic marijuana use. Sylvarena has evidenced is good for impulsivity in her patient population and the patient is amenable to continuing it at this time. MENTAL STATUS EXAMINATION ON DISCHARGE: "General: Well dressed with good hygiene Speech: Spontaneous and fluid Thought processes: Linear and logical Thought content: Future orientated Abstract reasoning, and computation: Intact Description of associations: Intact Description of abnormal or psychotic thoughts:Denies any suicidal or homicidal ideation. Denies any auditory or visual hallucinations. Does not appear to be responding to internal stimuli. Does not appear to be endorsing any bizarre or paranoid ideation. Judgment: Fair Insight: Fair Orientation: Alert and orientated 3 Recent and remote memory: Intact Attention span and concentration: Intact Fund of knowledge: Adequate Mood: "Fine" Affect: Euthymic with a full range" Per- Dr. Stewart PLAN/FOLLOWUP ARRANGEMENTS: Will follow-up with her outpatient mental health provider The social work team worked during the predischarge meeting in order to evaluate for further issues of lethality address them fully before discharge. They worked on safety planning with the patient's family members in order to ensure that the patient will have a safe and effective discharge. The amount of time spent in the coordination of care for this patient was approximately 30 minutes. Vital Signs/I&Os Vital Signs Date Time Temp Pulse Resp B/P (MAP) Pulse Ox O2 Delivery O2 Flow Rate FiO2 10/24/16 06:15 99.4 85 18 130/73 (92) Room Air 10/18/16 11:53 98 Laboratory Data Microbiology Microbiology 10/18/16 Urine Culture - Final, Complete Medications Scheduled [place] Carbonate (Sylvarena Carbonate ER) 450 Mg Tabcr, 450 MG PO QHS for MOOD, # 10 Prazosin HCl (Minipress) 1 Mg Cap, 1 MG PO QHS for nightmares, #10 Scheduled PRN Ketorolac Tromethamine (Ketorolac Tromethamine) 10 Mg Tab, 10 MG PO QIDP PRN for HEADACHE, (Reported) Sumatriptan Succinate (Sumatriptan Succinate) 25 Mg Tab, 25 MG PO DAILYPRN PRN for HEADACHE, (Reported) Allergies Coded Allergies: Codeine (Verified Allergy, Intermediate, HIVES, VOMITING, 12/30/13) Hydrocodone (Verified Allergy, Intermediate, HIVES, ITCHING, 04/21/16) Dust (Verified Allergy, Unknown, 06/06/06) Pollen Extract (Verified Allergy, Unknown, 09/03/12) Ibuprofen (Verified Adverse Reaction, Severe, PT CANNOT TAKE DUE TO ITP, 04/21/16) Aspirin (Verified Adverse Reaction, Intermediate, NOT ALLERGIC, BUT ITP, ) Latex (Verified Adverse Reaction, Mild, ITCHING FROM CONDOMS, 04/21/16) GME ATTESTATION My preceptor for this patient encounter was physically present in the building during the encounter and was fully available. As needed, all aspects of the patient interview, examination, medical decision making process, and medical care plan development were reviewed and approved by the preceptor. Preceptor is aware and concurs with the plan as stated in the body of this note and will attest to such by his/her cosignature. DAGO GAMEZ DO October 24, 2016 20:25
== END 2016-10-24 11:15 | disposition home or self-care (01) | DRG 752 ==
LOC: M ED 18:34 → M ED INP 10-18 11:12 → M PSY 10-18 11:59
PROVIDERS: ADMIT Psychiatry & Neurology Psychiatry; ATTEND Psychiatry & Neurology Psychiatry
DX: F60.2 Antisocial personality disorder (principal); F12.988 Cannabis use, unspecified with other cannabis-induced disorder; Z88.5 Allergy status to narcotic agent; Z88.8 Allergy status to other drugs, medicaments and biological substances; Z91.040 Latex allergy status; Z88.6 Allergy status to analgesic agent; E55.9 Vitamin D deficiency, unspecified; F17.200 Nicotine dependence, unspecified, uncomplicated; E87.6 Hypokalemia; B37.3 Candidiasis of vulva and vagina; E04.1 Nontoxic single thyroid nodule

== ENCOUNTER 2016-10-28 14:29 | Emergency (ER) | payer OTHER ==
[~2016-10-28] VITALS: Ht 154.9 cm; Wt 64.9 kg
[~2016-10-28 14:29] MED LIST changes: +KETO10TAB PO; +LITH45TASA PO; +MINI1CAP PO; +SUMA25TA3 PO; +TOPA25TA10 PO
[2016-10-28 15:17] LABS: MEAN CORPUSCULAR HEMOGLOBIN 29.5 pg (27.0-33.0); MEAN CORPUSCULAR HGB CONC 32.6 g/dl (32.0-36.5); MEAN CORPUSCULAR VOLUME 90.8 fl (80.0-96.0); WHITE BLOOD COUNT 12.6 K/mm3 (4.0-10.0)
[2016-10-28 15:34] LABS: CONTROL LINE HCG INT CTR LINE PRESENT
[2016-10-28 15:48] LABS: ANION GAP 8 MEQ/L (8-16); BLOOD UREA NITROGEN 10 MG/DL (7-18); CALCIUM LEVEL 8.3 MG/DL (8.5-10.1); CARBON DIOXIDE LEVEL 23 MEQ/L (21-32); CHLORIDE LEVEL 112 MEQ/L (98-107); CREATININE FOR GFR 0.69 MG/DL (0.55-1.02); GLOMERULAR FILTRATION RATE > 60.0 (>60); GLUCOSE, FASTING 98 MG/DL (70-105); POTASSIUM SERUM 3.8 MEQ/L (3.5-5.1); SODIUM LEVEL 143 MEQ/L (136-145)
[2016-10-28 15:49] LABS: ALBUMIN 3.7 GM/DL (3.2-5.2); ALBUMIN/GLOBULIN RATIO 1.28 (1.00-1.93); ALKALINE PHOSPHATASE 68 U/L (45-117); ALT/SGPT 33 U/L (12-78); AST/SGOT 12 U/L (15-37); BILIRUBIN,DIRECT 0.1 MG/DL (0.0-0.2); BILIRUBIN,TOTAL 0.6 MG/DL (0.2-1.0); METHADONE URINE NEGATIVE (NEGATIVE); TOTAL PROTEIN 6.6 GM/DL (6.4-8.2)
[2016-10-28 16:00] LABS: LITHIUM LEVEL 0.27 MEQ/L (0.60-1.20)
[2016-10-28] MEDS ORDERED: PREN1TAB15 (16:01)
[2016-10-28] MEDS ORDERED: LITH45TASA PO (16:01)
[2016-10-28] MEDS ORDERED: KETO10TAB PO (16:01)
[2016-10-28] MEDS ORDERED: NICO14DI20 TD (16:01)
[2016-10-28] MEDS ORDERED: PRAZ1CAP (16:01)
[2016-10-28] MEDS ORDERED: SUMA25TA3 PO (16:01)
[2016-10-28] MEDS ORDERED: D3-5CAP (16:01)
[2016-10-28] MEDS ORDERED: acetaminophen PO (16:02)
[2016-10-28] MEDS ORDERED: LITHIUM CARBONATE 150 MG CAP PO ONE (16:30)
[2016-10-28] MEDS ORDERED: ACETAMINOPHEN TAB 650MG DOSE (2X325MG) PO ONE (16:30)
[2016-10-28] MEDS ORDERED: diphenhydrAMINE INJ 50MG/ML VIAL (J1200) IM ONE (17:00)
[2016-10-28] MEDS ORDERED: HALOPERIDOL 5 MG/ML VIAL (J1630) IM ONE (17:00)
[2016-10-28] MEDS ORDERED: LORazepam 2 MG/ML VIAL (J2060) IM ONE (17:00)
[2016-10-28] MEDS ORDERED: NICOTINE 21MG/24HR 1 EA TRANSDERMAL TD ONE (19:30)
[2016-10-29] MEDS ORDERED: ACETAMINOPHEN TAB 650MG DOSE (2X325MG) PO ONE (02:30)
[2016-10-29 06:06] VITALS: BP 112/74
[2016-10-29] MEDS ORDERED: LORazepam 2 MG TAB PO STA (07:49)
--- NOTE | 2016-10-29 22:15 | IPN ---
DATE: 10/29/2016 ADDENDUM MENTAL STATUS EXAMINATION: The patient is dressed in [facility]. The patient is cooperative during the interview. Has fair eye contact. Speech is somewhat fast. Mood is anxious. Affect is somewhat labile. The patient is expressing some paranoid delusions about "people messing up with me because I have bipolar." denies auditory or visual hallucinations. Memory, attention and concentration are fair. The patient is denying suicidal or homicidal ideations. Insight and judgment are limited. ASSESSMENT: Bipolar disorder by history. PLAN: As above, the patient does not meet criteria for involuntary hospitalization at this time. The patient is denying suicidal or homicidal ideation. The patient is denying auditory or visual hallucinations. The patient is making some paranoid statements but appears to be at baseline. The patient does not want to be admitted to our facility. She does not meet criteria for involuntary hospitalization. She wants to continue her treatment as outpatient. She is willing to continue taking her medications and going to her appointment. Therefore, is discharged today in stable condition.
--- NOTE | 2016-10-30 22:37 | IPN ---
DATE: 10/29/2016 I was asked to evaluate the patient at the emergency department. She came to be evaluated for agitation. She was making derogatory comments described as being nasty with the security aide. The police specialist that brought her stated that she made repetitive phone calls over the last two days. These calls were reported as more than 20. It is stated in the chart that during these calls, threats to kill self and others were included. She was discharged from our unit three days ago. She has stopped taking her medications. Apparently, she was using substances. She was very upset with the rail director at arrival to the emergency department. She was jumping from subject to subject. She was very angry to the fact that she was brought to the hospital against her will and she did not want to cooperate. She had to be medicated. Ativan and lithium, which is the treatment for her bipolar illness, were given. This morning, patient is significantly calmer, is cooperative. She says that she does not want to be admitted to the hospital. She stated that she was very upset because she was brought to the hospital against her will, but she has no intention to kill self or anybody else. During the last hospitalization, the treatment team felt that many of her symptoms are related to her personality profile and has tendency to seek attention. After talking to the patient, patient is sofia for safety, denies suicidal or homicidal ideation. Patient at this time does not meet criteria for involuntary hospitalization. Patient wants to go home and continue her treatment as outpatient. Patient is willing to continue her appointments and taking her medications. Therefore, is discharged in stable condition.
== END 2016-10-29 12:31 | disposition home or self-care (01) ==
LOC: M ED 15:00
DX: F31.9 Bipolar disorder, unspecified (principal)

== ENCOUNTER → 2016-12-13 | Outpatient (REF) | payer MEDICAID, OTHER, SELFPAY ==
[~2016-12-13] MED LIST changes: +ABIL10TA9 PO; -ABIL1TAB5 PO; +D3-5CAP; +NAPR-855 PO; -NAPR375T2 PO; +NICO14DI20 TD; +PERC5TAB12 PO; -PERC5TAB6 PO; +PRAZ1CAP; +PREN1TAB15; +TOPA1TAB PO; -TOPA25TA10 PO; +TRAZ-136 PO; -TRAZ100T4 PO; +acetaminophen PO
[2016-12-13 19:38] LABS: BASO % 0.4 % (0.0-1.0); EOS # 0.2 K/mm3 (0.0-0.50); EOS % 1.6 % (0.0-3.0); LARGE UNSTAINED CELL # 0.2 K/mm3 (0.0-0.4); LARGE UNSTAINED CELL % 1.8 % (0.0-4.0); LYMPH # 3.2 K/mm3 (1.5-6.5); LYMPH % 27.8 % (24.0-44.0); MEAN CORPUSCULAR HEMOGLOBIN 29.5 pg (27.0-33.0); MEAN CORPUSCULAR HGB CONC 32.4 g/dl (32.0-36.5); MONO # 0.7 K/mm3 (0.0-0.8); MONO % 6.7 % (0.0-5.0); NEUTROPHILS # 6.6 K/mm3 (1.8-7.7); NEUTROPHILS % 61.7 % (36.0-66.0); PLATELET COUNT, AUTOMATED 234 k/mm3 (150-450); RED CELL DISTRIBUTION WIDTH 13.5 % (11.5-14.5); WHITE BLOOD COUNT 10.6 K/mm3 (4.0-10.0)
== END ==
LOC: M LAB REF 17:27
PROVIDERS: ATTEND Psychiatry & Neurology Psychiatry
DX: Z51.81 Encounter for therapeutic drug level monitoring (principal); Z79.899 Other long term (current) drug therapy

== ENCOUNTER → 2017-01-24 | Outpatient (REF) | payer MEDICAID, OTHER | LOC: M LAB REF 13:38 | PROVIDERS: ATTEND Psychiatry & Neurology Psychiatry | DX: Z51.81 Encounter for therapeutic drug level monitoring (principal); Z79.899 Other long term (current) drug therapy ==

== ENCOUNTER → 2017-03-07 | Outpatient (REF) | payer MEDICAID, OTHER | LOC: M LAB REF 16:19 | PROVIDERS: ATTEND Psychiatry & Neurology Psychiatry | DX: Z51.81 Encounter for therapeutic drug level monitoring (principal); Z79.899 Other long term (current) drug therapy ==

== ENCOUNTER → 2018-05-21 | Outpatient (CLI) | payer OTHER ==
[~2018-05-21] MED LIST changes: -TRAZ-136 PO; +TRAZ-163 PO
[2018-05-21 15:03] LABS: FREE T4 1.12 NG/DL (0.76-1.46); THYROID STIMULATING HORMONE 0.652 uIU/ML (0.358-3.740)
== END ==
LOC: M LAB 13:59
PROVIDERS: ATTEND Nurse Practitioner Family
DX: R94.6 Abnormal results of thyroid function studies (principal)

== ENCOUNTER → 2018-07-09 | Outpatient (CLI) | payer OTHER ==
[2018-07-09 14:52] LABS: BASO % 0.2 % (0.0-1.0); EOS # 0.1 10^3/uL (0.0-0.50); EOS % 1.2 % (0.0-3.0); HEMATOCRIT 41.1 % (36.0-47.0); HEMOGLOBIN 13.5 g/dl (12.0-15.5); LYMPH # 3.6 10^3/uL (1.5-4.5); LYMPH % 36.4 % (24.0-44.0); MEAN CORPUSCULAR HEMOGLOBIN 28.4 pg (27.0-33.0); MEAN CORPUSCULAR HGB CONC 32.8 g/dl (32.0-36.5); MEAN CORPUSCULAR VOLUME 86.5 fl (80.0-96.0); MONO # 0.6 10^3/uL (0.0-0.8); MONO % 5.7 % (0.0-5.0); NEUTROPHILS # 5.6 10^3/uL (1.8-7.7); NEUTROPHILS % 56.3 % (36.0-66.0); PLATELET COUNT, AUTOMATED 235 10^3/uL (150-450); RED BLOOD COUNT 4.75 10^6/uL (4.00-5.40); WHITE BLOOD COUNT 9.9 10^3/uL (4.0-10.0)
[2018-07-09 15:12] LABS: ALBUMIN 4.3 GM/DL (3.2-5.2); ALT/SGPT 17 U/L (12-78); BILIRUBIN,TOTAL 0.2 MG/DL (0.2-1.0); BLOOD UREA NITROGEN 13 MG/DL (7-18); CALCIUM LEVEL 9.3 MG/DL (8.5-10.1); CARBON DIOXIDE LEVEL 24 MEQ/L (21-32); CHLORIDE LEVEL 106 MEQ/L (98-107); CREATININE FOR GFR 0.78 MG/DL (0.55-1.30); FERRITIN 27 NG/ML (8-252); GLOMERULAR FILTRATION RATE > 60.0 (>60); GLUCOSE, FASTING 104 MG/DL (70-100); IRON (FE) 64 UG/DL (50-170); PERCENT SATURATION 23.4 % (13.2-45.0); POTASSIUM SERUM 4.1 MEQ/L (3.5-5.1); SODIUM LEVEL 139 MEQ/L (136-145); TOTAL IRON BINDING CAPACITY 274 UG/DL (250-450); TOTAL PROTEIN 7.4 GM/DL (6.4-8.2)
[2018-07-09 15:19] LABS: COLLAGEN EPINEPHRINE 112 SECONDS (74-162); TOTAL 25(OH) VITAMIN D 22.9 NG/ML (30.0-100.0)
[2018-07-09 15:41] LABS: ERYTHROCYTE SEDIMENTATION RATE 15 mm/hr (0-20)
[2018-07-10 14:17] LABS: ANTINUCLEAR ANTIBODIES DIRECT Negative (Negative)
== END ==
LOC: M LAB 14:17
PROVIDERS: ATTEND Family Medicine
DX: D69.3 Immune thrombocytopenic purpura (principal)

== ENCOUNTER 2018-09-02 18:32 | Emergency (ER) | payer OTHER ==
[~2018-09-02] VITALS: Ht 154.9 cm; Wt 68.2 kg
[~2018-09-02 18:32] MED LIST changes: -/DIVA50TA PO; -/QUET10TA OR; -/QUET10TA PO; +DEPA1TAB3 PO; +SERO1TAB OR; +SERO1TAB PO
[2018-09-02 18:33] VITALS: BP 130/78
[2018-09-02] MEDS ORDERED: FLUC150T PO ×2 (19:50→19:55)
== END 2018-09-02 20:00 | disposition home or self-care (01) ==
LOC: M ED 18:32
DX: B37.3 Candidiasis of vulva and vagina (principal); E03.9 Hypothyroidism, unspecified; Z88.5 Allergy status to narcotic agent; Z88.8 Allergy status to other drugs, medicaments and biological substances; Z91.040 Latex allergy status; Z91.048 Other nonmedicinal substance allergy status

== ENCOUNTER → 2019-02-15 | Outpatient (REF) | payer OTHER ==
[~2019-02-15] MED LIST changes: +FLUC150T PO
[2019-02-15 21:23] LABS: CHLAMYDIA DNA AMPLIFICATION NEGATIVE (NEGATIVE); GC DNA AMPLIFICATION NEGATIVE (NEGATIVE)
== END ==
LOC: M LAB REF 16:17
PROVIDERS: ATTEND Physician Assistant
DX: R30.0 Dysuria (principal)

== ENCOUNTER → 2019-03-01 | Outpatient (REF) | payer OTHER | LOC: M SFHCLERA 17:07 | PROVIDERS: ATTEND Physician Assistant | DX: R50.9 Fever, unspecified (principal) ==

== ENCOUNTER → 2019-04-04 | Outpatient (REF) | payer OTHER ==
[2019-04-05 10:02] LABS: HEPATITIS B SURFACE ANTIGEN NEGATIVE (NEGATIVE); RUBELLA IgG QUALITATIVE IMMUNE (IMMUNE)
[2019-04-09 14:07] LABS: HEMOGLOBIN A 97.5 % (96.4-98.8); HEMOGLOBIN A2 2.5 % (1.8-3.2); HGB SOLUBILITY Negative (Negative)
== END ==
LOC: M LAB REF 16:24
PROVIDERS: ATTEND Obstetrics & Gynecology
DX: O36.80X0 Pregnancy with inconclusive fetal viability, not applicable or unspecified (principal)

== ENCOUNTER → 2019-07-02 | Outpatient (REF) | payer OTHER ==
[~2019-07-02] MED LIST changes: -TRAZ-163 PO; +TRAZ-257 PO
[2019-07-02 13:37] LABS: PLTBLUE- EDTA FREE CALC 150 K/mm3 (172-450)
[2019-07-02 13:50] LABS: PLTBLUE- EDTA FREE MACHINE 136 10^3/uL (172-450)
[2019-07-02 13:59] LABS: FREE T3 2.8 PG/ML (2.2-4.0); FREE T4 1.19 NG/DL (0.76-1.46); THYROID STIMULATING HORMONE 0.718 uIU/ML (0.358-3.740)
== END ==
LOC: M LAB REF 12:53
PROVIDERS: ATTEND Obstetrics & Gynecology
DX: Z36.89 Encounter for other specified antenatal screening (principal)

== ENCOUNTER → 2019-07-18 | Outpatient (CLI) | payer MEDICAID, OTHER ==
[2019-07-18 15:22] LABS: HEMATOCRIT 29.6 % (36.0-47.0); HEMOGLOBIN 9.8 g/dl (12.0-15.5); MEAN CORPUSCULAR HEMOGLOBIN 30.2 pg (27.0-33.0); MEAN CORPUSCULAR HGB CONC 33.1 g/dl (32.0-36.5); MEAN CORPUSCULAR VOLUME 91.4 fl (80.0-96.0); PLATELET COUNT, AUTOMATED 220 10^3/uL (150-450); RED BLOOD COUNT 3.24 10^6/uL (4.00-5.40)
== END ==
LOC: M LAB 13:48
PROVIDERS: ATTEND Obstetrics & Gynecology
DX: Z34.82 Encounter for supervision of other normal pregnancy, second trimester (principal); Z3A.00 Weeks of gestation of pregnancy not specified

== ENCOUNTER → 2019-08-14 | Outpatient (REF) | payer OTHER ==
[2019-08-14 13:40] LABS: FREE T3 3.2 PG/ML (2.2-4.0); FREE T4 1.56 NG/DL (0.76-1.46); THYROID STIMULATING HORMONE 0.452 uIU/ML (0.358-3.740)
[2019-08-14 13:46] LABS: HEMATOCRIT 33.8 % (36.0-47.0); HEMOGLOBIN 11.4 g/dl (12.0-15.5); MEAN CORPUSCULAR HEMOGLOBIN 29.5 pg (27.0-33.0); MEAN CORPUSCULAR HGB CONC 33.7 g/dl (32.0-36.5); MEAN CORPUSCULAR VOLUME 87.6 fl (80.0-96.0); PLATELET COUNT, AUTOMATED 150 10^3/uL (150-450); RED BLOOD COUNT 3.86 10^6/uL (4.00-5.40); WHITE BLOOD COUNT 9.3 10^3/uL (4.0-10.0)
== END ==
LOC: M LAB REF 12:46
PROVIDERS: ATTEND Obstetrics & Gynecology
DX: Z34.83 Encounter for supervision of other normal pregnancy, third trimester (principal)

== ENCOUNTER → 2019-09-13 | Outpatient (REF) | payer MEDICAID ==
[~2019-09-13] MED LIST changes: +FERR83TA2 PO
[2019-09-13 13:20] LABS: FREE T3 2.7 PG/ML (2.2-4.0); FREE T4 1.21 NG/DL (0.76-1.46); THYROID STIMULATING HORMONE 0.388 uIU/ML (0.358-3.740)
== END ==
LOC: M LAB REF 12:24
PROVIDERS: ATTEND Obstetrics & Gynecology
DX: Z34.83 Encounter for supervision of other normal pregnancy, third trimester (principal)

== ENCOUNTER → 2019-09-19 | Outpatient (CLI) | payer MEDICAID ==
[2019-09-19 15:46] LABS: FREE T4 1.12 NG/DL (0.76-1.46); THYROID STIMULATING HORMONE 0.509 uIU/ML (0.358-3.740)
== END ==
LOC: M LAB 13:57
PROVIDERS: ATTEND Nurse Practitioner Family
DX: R94.6 Abnormal results of thyroid function studies (principal)

== ENCOUNTER → 2019-09-24 | Outpatient (REF) | payer OTHER ==
[2019-09-24 13:25] LABS: HEMOGLOBIN 10.7 g/dl (12.0-15.5); MEAN CORPUSCULAR HEMOGLOBIN 30.1 pg (27.0-33.0); MEAN CORPUSCULAR HGB CONC 33.4 g/dl (32.0-36.5); MEAN CORPUSCULAR VOLUME 90.1 fl (80.0-96.0); PLATELET COUNT, AUTOMATED 250 10^3/uL (150-450); RED BLOOD COUNT 3.55 10^6/uL (4.00-5.40)
== END ==
LOC: M LAB REF 12:55
PROVIDERS: ATTEND Obstetrics & Gynecology
DX: Z34.83 Encounter for supervision of other normal pregnancy, third trimester (principal)

== ENCOUNTER 2019-10-09 05:40 | Inpatient (IN) | payer MEDICAID, OTHER ==
[2019-10-09] VITALS (8 sets, daily range): BP systolic 97–117; BP diastolic 52–65
[~2019-10-09] VITALS: Ht 154.9 cm; Wt 72.4 kg
[2019-10-09] MEDS ORDERED: LR 1,000 ML IV SCH (05:45)
[2019-10-09] MEDS ORDERED: ceFAZolin SOD 2 GM in IV 1 EA IV ONE (05:45)
[2019-10-09] MEDS ORDERED: BICITRA 30ML SOLN UDC PO ONE (05:45)
[2019-10-09] MEDS ORDERED: LACTATED RINGER'S 1000 ML IV STA (05:45)
[2019-10-09 06:22] LABS: HEMATOCRIT 32.4 % (36.0-47.0); HEMOGLOBIN 11.2 g/dl (12.0-15.5); MEAN CORPUSCULAR HGB CONC 34.6 g/dl (32.0-36.5); MEAN CORPUSCULAR VOLUME 86.9 fl (80.0-96.0); PLATELET COUNT, AUTOMATED 251 10^3/uL (150-450); RED BLOOD COUNT 3.73 10^6/uL (4.00-5.40); WHITE BLOOD COUNT 18.8 10^3/uL (4.0-10.0)
[2019-10-09] MEDS ORDERED: OXYTOCIN INJ 10 UNITS/ML VIAL (J2590) As Ordered ONE ×3 (07:18→08:47)
[2019-10-09] MEDS ORDERED: MORPHINE PRES-FREE INJ 10 MG/10 ML VIAL (J2274) As Ordered ONE (07:21)
[2019-10-09] MEDS ORDERED: NALBUPHINE HCL 10 MG/ML AMP (J2300) IV PRN (07:52)
[2019-10-09] MEDS ORDERED: diphenhydrAMINE 50MG/ML VIAL (J1200) IV PRN (07:52)
[2019-10-09] MEDS ORDERED: ONDANSETRON 4MG/2ML VIAL IV PRN ×2 (07:52→09:30)
[2019-10-09] MEDS ORDERED: NALOXONE INJ 0.4MG/1ML VIAL (J2310 PER 1MG) IV PRN ×2 (07:52)
[2019-10-09] MEDS ORDERED: PHENYLephrine HCL 500 MCG/5 ML (100MCG/ML) SYRINGE (J2370) As Ordered ONE ×3 (07:57→08:23)
[2019-10-09] MEDS ORDERED: ONDANSETRON 4MG/2ML VIAL As Ordered ONE (08:00)
[2019-10-09] MEDS ORDERED: dexameTHASONE 4 MG/ML 1ML VIAL (J1100 PER 1MG) As Ordered ONE (08:00)
[2019-10-09] MEDS ORDERED: METOCLOPRAMIDE INJ 10MG/2ML VIAL (J2765 PER 1) As Ordered ONE (08:11)
[2019-10-09 08:19] LABS: CORD GAS ABE V -4.4; CORD GAS HCO3 V 20.2 MEQ/L; CORD GAS O2 SAT V 86.9 %; CORD GAS PCO2 V 35.7 mmHg; CORD GAS PH V 7.37 UNITS; CORD GAS SBC V 20.6 MEQ/L; CORD GAS TCO2 V 21.3 MEQ/L
[2019-10-09 08:20] LABS: CORD GAS HCO3 A 23.3 MEQ/L; CORD GAS O2 SAT A 45.5 %; CORD GAS PH A 7.277 UNITS; CORD GAS PO2 A 17.8 mmHg; CORD GAS TCO2 A 24.8 MEQ/L
[2019-10-09] MEDS ORDERED: propofoL 200 MG/20 ML VIAL As Ordered ONE ×2 (08:31→08:47)
[2019-10-09] MEDS ORDERED: KETOROLAC 60 MG/2 ML VIAL As Ordered ONE (08:57)
[2019-10-09] MEDS ORDERED: OXYTOCIN DRIP 30 UNITS in IV 1 EA IV SCH (09:05)
[2019-10-09] MEDS ORDERED: KETOROLAC 30 MG/ML 1ML VIAL IV SCH (09:15)
[2019-10-09] MEDS ORDERED: RHOGAM 300 MCG (1500 IU) INJ (J2790) IM SCH (09:15)
[2019-10-09] MEDS ORDERED: MOM 30ML SUSPENSION UDC PO PRN (09:15)
[2019-10-09] MEDS ORDERED: MEASLES,MUMPS,RUBELLA VACCINE INJ (MMR-II) (90707) SC SCH (09:15)
[2019-10-09] MEDS ORDERED: fentaNYL 100 MCG/2 ML INJECTION (J3010) IV PRN (09:30)
[2019-10-09] MEDS ORDERED: OXYTOCIN 30 UNITS IN 0.9% NaCl 500ML IV BAG (J2590) As Ordered ONE (09:36)
[2019-10-09] MEDS ORDERED: fentaNYL 100 MCG/2 ML INJECTION (J3010) As Ordered ONE (09:38)
[2019-10-09] MEDS: ONDANSETRON 4MG/2ML VIAL IV PRN ×2 (10:37→19:55)
[2019-10-09] MEDS: METOCLOPRAMIDE INJ 10MG/2ML VIAL (J2765 PER 1) IV PRN ×2 (11:23→18:00)
[2019-10-09] MEDS: LR 1,000 ML IV SCH ×2 (13:26→19:56)
[2019-10-09] MEDS: DOCUSATE SODIUM 100 MG CAP PO SCH ×2 (19:56→20:23)
[2019-10-10 01:42] VITALS: BP 126/84
[2019-10-10] MEDS: PERCOCET 5MG/325MG TAB PO PRN ×4 (04:23→20:07)
[2019-10-10 05:59] VITALS: BP 112/55
[2019-10-10 07:16] LABS: HEMATOCRIT 27.5 % (36.0-47.0); MEAN CORPUSCULAR HEMOGLOBIN 29.4 pg (27.0-33.0); MEAN CORPUSCULAR HGB CONC 33.1 g/dl (32.0-36.5); MEAN CORPUSCULAR VOLUME 88.7 fl (80.0-96.0); PLATELET COUNT, AUTOMATED 252 10^3/uL (150-450); WHITE BLOOD COUNT 17.5 10^3/uL (4.0-10.0)
[2019-10-10 07:21] LABS: HEMOGLOBIN 9.1 g/dl (12.0-15.5)
--- NOTE | 2019-10-10 08:27 | IPNPDOC ---
Progress Note Date of Service: October 10, 2019 Day#: 1 Progress Note SUBJECT: 34 y/o female post op day #1 doing well. No N/VC. Tolerating diet well. Ambulating without difficulty. Minimal lochia. OBJECTIVE: VITAL SIGNS: Within normal limits, afebrile. Alert and oriented times three. Breath sounds clear to auscultation. Heart rate: Regular rate and rhythm, no murmurs, rubs or gallops. Abdomen: Fundus firm at U-2. Soft, NTTP. [Minimal] lochia. ASSESSMENT: POPD #1, S/p C/S doing well. Vitals within normal limits, afebrile, hemodynamically stable with no evidence of infection. PLAN: 1. Continue current care. 2. Tylenol and Motrin for pain. 3. Encourage breast feeding and ambulation. VS, I&O, 24H, Fishbone Vital Signs/I&O Vital Signs Date Time Temp Pulse Resp B/P (MAP) Pulse Ox O2 Delivery O2 Flow Rate FiO2 10/10/19 05:59 98.1 84 18 112/55 (74) 98 10/10/19 04:53 Room Air I&O- Last 24 Hours up to 6 AM 10/10/19 05:59 Intake Total 4300 ml Output Total 3375 ml Balance 925 ml Laboratory Data 24H LABS Laboratory Tests 2 10/10/19 06:24: Nucleated Red Blood Cells % (auto) 0.0 CBC/BMP Laboratory Tests 10/10/19 06:24 Ruel Brown DO October 10, 2019 08:27
[2019-10-10] MEDS ORDERED: INFLUENZA QUADRIVALENT PF VACCINE 0.5ML SYRINGE (90686) IM ONE (09:00)
[2019-10-10] MEDS ORDERED: BOOSTRIX/ADACEL VACCINE (DIPHTH/PERTUSS/ACELL/TETANUS) 0.5ML SYR IM ONE (09:00)
[2019-10-10] MEDS: PRENATAL VITAMINS CHEWABLE TABLET PO SCH (09:47)
[2019-10-10] MEDS: DOCUSATE SODIUM 100 MG CAP PO SCH ×2 (09:47→20:06)
[2019-10-10 10:00] VITALS: BP 127/72
[2019-10-10] MEDS ORDERED: IBUPROFEN 800 MG TAB PO SCH (11:15)
[2019-10-10 14:00] VITALS: BP 115/87
[2019-10-10] MEDS: SIMETHICONE 80 MG CHEW TAB PO SCH ×2 (14:21→20:06)
[2019-10-10 18:00] VITALS: BP 110/59
[2019-10-11] MEDS: PERCOCET 5MG/325MG TAB PO PRN ×3 (02:07→14:03)
[2019-10-11] MEDS ORDERED: BISACODYL 10 MG SUPP PR ONE (05:00)
[2019-10-11] MEDS: SIMETHICONE 80 MG CHEW TAB PO SCH ×3 (05:36→14:02)
[2019-10-11 06:00] VITALS: BP 106/53
[2019-10-11] MEDS: PRENATAL VITAMINS CHEWABLE TABLET PO SCH (07:51)
[2019-10-11] MEDS: DOCUSATE SODIUM 100 MG CAP PO SCH (07:51)
--- NOTE | 2019-10-11 08:46 | OBDS ---
[facility] Obstetrical Discharge Sum. Obstetrical Discharge Summary Date: October 11, 2019 : 5 Term: 4 Pre-term: 0 Abortions: 1 Livin VDRL: Non-Reactive Rh: Positive Sex: Female Anesthesia: Regional Anesthesia A/P, Post Course List any complications Admission diagnosis: term for elective repeat c/s; Desires permanent tubal sterilization Discharge diagnosis: Same Condition at Discharge: [Stable] Discharge Instructions: [No heavy lifting >% LBS. Call if temp >101 or severe pain.] Activity: [As tolerated ] Diet: [Regular] Medications: [See list ] Follow-up: [2 weeks] Other: Ruel Brown DO October 11, 2019 08:46
[2019-10-11] MEDS ORDERED: PERCOCET PO (08:48)
--- NOTE | 2019-10-11 19:44 | RO ---
DATE OF PROCEDURE: 10/09/2019 Kimberley is a 34-year-old female who is 5, para 3-0-1-3 with a history of three prior sections who is being admitted for elective repeat section. The patient also desires permanent tubal sterilization. PREOPERATIVE DIAGNOSES: 1. Term for elective repeat section times four. 2. Desires permanent tubal sterilization. POSTOPERATIVE DIAGNOSES: 1. Term for elective repeat section times four. 2. Desires permanent tubal sterilization. 3. Dense adhesions. PROCEDURES: 1. Repeat section. 2. Bilateral salpingectomy. 3. Extensive lysis of adhesions. 4. Revision of old scar. SURGEON: Ruel Brown DO CP BLEACHER OPERATOR: Sophie Ramos ANESTHESIA: Spinal. COMPLICATIONS: None. ESTIMATED BLOOD LOSS: 600 mL. FINDINGS: Live female infant in occiput transverse position. scores 9 and 9. weight 5 pounds 14 ounces. Dense adhesions noted at bilateral tubes and lower segment of the uterus. DESCRIPTION OF PROCEDURE: After obtaining informed consent, the patient was taken to the operating room where spinal anesthetic was found to be adequate. She was then draped and prepped in the usual sterile fashion in the supine position. At this point, an elliptical incision was made over her old scar. The old scar was removed with the help of Sophie Ramos. The incision was carried down to the fascia. Fascia was incised in midline fashion and carried through laterally. Superior aspect of the fascia was then grasped with two Pilar clamps, tented off and dissected off the rectus muscles sharply. The inferior aspect was dissected off in a similar fashion. Rectus muscles in midline fashion. Peritoneum identified. Peritoneal cavity entered bluntly. Superior and inferior dissection of the peritoneum was then done with good visualization of the bladder. At this point, a Mobius skin retractor was placed, a low transverse uterine incision was made. was delivered in atraumatic fashion. Nose and mouth bulb suctioned. Cord doubly clamped and cut and infant was handed over to the waiting warmer. Cord blood and cord gas were sent. Placenta removed manually. Uterus cleared of all clot and debris, and the uterine incision was then repaired in two separate layers of #0 Vicryl suture. We then turned our attention to the fallopian tubes where dense adhesions were noted. Using the Bovie and a series of sharp and blunt dissection, the adhesions were removed. We then placed two Destiney's at the fimbriated end and the cornual end of the tube. The segment of the tube was removed and they were suture ligated using #3-0 chromic suture. The opposite side was done in similar fashion. Good hemostasis noted. Both ovaries were dropped back in the abdomen, pelvis copiously irrigated with normal saline and suctioned out. We then turned our attention to the peritoneum, which was closed in a running fashion using #2-0 Vicryl. Fascia closed in two separate segments of #0 Vicryl sutures. All superficial bleeders coagulated, and the skin was reapproximated in a subcuticular fashion using #3-0 Vicryl on a Álvaro. Steri-Strips placed. The patient tolerated procedure well. She was then transferred to recovery room in stable condition.
== END 2019-10-11 14:05 | disposition home or self-care (01) | DRG 540 ==
LOC: M LDI 05:40 → M OBS 10:17
PROVIDERS: ADMIT Obstetrics & Gynecology; ATTEND Obstetrics & Gynecology
PROC: 0UB70ZZ Excision of Bilateral Fallopian Tubes, Open Approach (ICD-10-PCS; 2019-10-09)
PROC: 10D00Z1 Extraction of Products of Conception, Low, Open Approach (ICD-10-PCS; principal; 2019-10-09 07:30)
DX: O34.211 Maternal care for low transverse scar from previous cesarean delivery (principal); Z3A.38 38 weeks gestation of pregnancy; Z30.2 Encounter for sterilization; Z37.0 Single live birth

== ENCOUNTER → 2020-01-10 | Outpatient (CLI) | payer OTHER ==
[~2020-01-10] MED LIST changes: +AMIT10TA PO; +ESCI10TA2 PO; +FLUTISP NARES; +MONT10TA4 PO; +MULTTAB20 PO; +NICO21PAT TD; +PERCOCET PO; +PROP60CA PO; +SUMA4INJ3; +VITA50005 PO
[2020-03-07 11:40] LABS: FREE T4 1.11 NG/DL (0.76-1.46); THYROID STIMULATING HORMONE 0.254 uIU/ML (0.358-3.740); TOTAL T3 107.7 NG/DL (60.0-181.0)
== END ==
LOC: M LAB 16:50
PROVIDERS: ATTEND Nurse Practitioner Family
DX: R94.6 Abnormal results of thyroid function studies (principal)

== ENCOUNTER 2020-03-22 05:27 | Inpatient (IN) | payer MEDICAID, OTHER ==
[~2020-03-22] VITALS: Ht 154.9 cm; Wt 60.5 kg
[~2020-03-22 05:27] MED LIST changes: -AMIT10TA PO; -ESCI10TA2 PO; -FLUTISP NARES; -MONT10TA4 PO; -MULTTAB20 PO; -NICO21PAT TD; -PROP60CA PO; -SUMA4INJ3; -VITA50005 PO
[2020-03-22] MEDS ORDERED: HALOPERIDOL 5MG/ML VIAL (J1630 PER 1) IM ONE (06:00)
[2020-03-22] MEDS ORDERED: HALOPERIDOL 5MG/ML VIAL (J1630 PER 1) IM STA (06:27)
[2020-03-22] MEDS ORDERED: LORazepam 2 MG/ML VIAL IM STA (06:27)
[2020-03-22 06:50] LABS: ACETAMINOPHEN LEVEL < 2.0 UG/ML (10.0-30.0); ALBUMIN 4.2 GM/DL (3.2-5.2); ALT/SGPT 18 U/L (12-78); BILIRUBIN,DIRECT 0.2 MG/DL (0.0-0.2); BILIRUBIN,TOTAL 0.7 MG/DL (0.2-1.0); BLOOD UREA NITROGEN 21 MG/DL (7-18); CALCIUM LEVEL 8.9 MG/DL (8.5-10.1); CARBON DIOXIDE LEVEL 20 MEQ/L (21-32); CHLORIDE LEVEL 110 MEQ/L (98-107); CPK CREATINE PHOSPHOKINASE 144 U/L (26-192); ETHYL ALCOHOL (ETHANOL) < 0.003 % (0.000-0.010); GLOMERULAR FILTRATION RATE > 60.0 (>60); GLUCOSE, FASTING 104 MG/DL (70-100); POTASSIUM SERUM 3.4 MEQ/L (3.5-5.1); SALICYLATE LEVEL 4.5 MG/DL (5.0-30.0); SODIUM LEVEL 142 MEQ/L (136-145); THYROID STIMULATING HORMONE 0.689 uIU/ML (0.358-3.740); TOTAL PROTEIN 7.3 GM/DL (6.4-8.2)
[2020-03-22 06:52] LABS: HCG, SERUM QUALITATIVE NEGATIVE (NEGATIVE)
[2020-03-22 06:53] LABS: HEMATOCRIT 37.8 % (36.0-47.0); HEMOGLOBIN 12.5 g/dl (12.0-15.5); MEAN CORPUSCULAR HEMOGLOBIN 28.4 pg (27.0-33.0); MEAN CORPUSCULAR HGB CONC 33.1 g/dl (32.0-36.5); MEAN CORPUSCULAR VOLUME 85.9 fl (80.0-96.0); PLATELET COUNT, AUTOMATED 230 10^3/uL (150-450); WHITE BLOOD COUNT 12.3 10^3/uL (4.0-10.0)
[2020-03-22 07:14] LABS: AMPHETAMINES LEVEL URINE NEGATIVE (NEGATIVE); BARBITURATES URINE NEGATIVE (NEGATIVE); BENZODIAZEPINES URINE NEGATIVE (NEGATIVE); CANNABINOIDS URINE POSITIVE (NEGATIVE); COCAINE METABOLITE URINE NEGATIVE (NEGATIVE); METHADONE URINE NEGATIVE (NEGATIVE); OPIATES URINE NEGATIVE (NEGATIVE); PHENCYCLIDINE URINE NEGATIVE (NEGATIVE)
[2020-03-22] MEDS ORDERED: FLUTISP NARES (11:35)
[2020-03-22] MEDS ORDERED: VITA50005 PO (11:35)
[2020-03-22] MEDS ORDERED: SUMA4INJ3 (11:35)
[2020-03-22] MEDS ORDERED: PROP60CA PO (11:35)
[2020-03-22] MEDS ORDERED: AMIT10TA PO (11:35)
[2020-03-22] MEDS ORDERED: MONT10TA4 PO (11:35)
[2020-03-22] MEDS ORDERED: ESCI10TA2 PO (11:35)
--- NOTE | 2020-03-22 20:51 | ECGEPIP ---
[facility] - ED Test Date: 2020-03-22 Pat Name: DOROTEO AC Department: Room: - Gender: Female Assembler Gold Frame: KHADRA : 1985 Requested By: HINA Stone Order Number: [id number] Reading MD: Iman Connelly Measurements Intervals [place] Rate: 66 P: 67 NV: 151 QRS: 83 QRSD: 100 T: 42 QT: 408 QTc: 427 Interpretive Statements SINUS RHYTHM WITH SINUS ARRHYTHMIA NSTTW abnormalities DECREASED RATE 10/18/16 Electronically Signed on 03-22-2020 20:50:44 EDT by Iman Connelly
[2020-03-23] MEDS ORDERED: ESCITALOPRAM OXALATE 10 MG TAB (LEXAPRO) PO SCH (09:00)
[2020-03-23] MEDS ORDERED: PRENATAL VITAMINS CHEWABLE TABLET PO SCH (09:00)
[2020-03-23] MEDS ORDERED: MONTELUKAST 10 MG TAB PO SCH (09:00)
[2020-03-23] MEDS ORDERED: MOM 30ML SUSPENSION UDC PO PRN (14:45)
[2020-03-23] MEDS ORDERED: MAALOX 30 ML SUSP *UDC PO PRN (14:45)
[2020-03-23] MEDS ORDERED: IBUPROFEN 400 MG TAB PO PRN (14:45)
[2020-03-23] MEDS ORDERED: SUMAtriptan SUCCINATE 25 MG TAB PO PRN (14:45)
[2020-03-23] MEDS ORDERED: traZODone 50 MG TAB PO PRN (14:45)
[2020-03-23] MEDS ORDERED: NICOTINE 21MG/24HR 1 EA TRANSDERMAL TD ONE (15:15)
[2020-03-23 17:12] VITALS: BP 144/98
[2020-03-23] MEDS: FLUTICASONE PROP 0.05% NASAL SPRAY 16 GM (FLONASE) NARES SCH (20:11)
[2020-03-23] MEDS: PROPRANOLOL 60 MG LA CAP PO SCH (20:12)
[2020-03-23] MEDS: ACETAMINOPHEN TAB 650MG DOSE (2X325MG) PO PRN (20:12)
[2020-03-23] MEDS: AMITRIPTYLINE 10 MG TAB PO SCH (20:13)
[2020-03-23] MEDS ORDERED: AMITRIPTYLINE 10 MG TAB PO SCH (21:00)
[2020-03-23] MEDS ORDERED: PROPRANOLOL 60 MG LA CAP PO SCH (21:00)
[2020-03-24 06:18] VITALS: BP 118/72
[2020-03-24] MEDS: MONTELUKAST 10 MG TAB PO SCH (08:52)
[2020-03-24] MEDS: PRENATAL VITAMINS CHEWABLE TABLET PO SCH (08:52)
[2020-03-24] MEDS: FLUTICASONE PROP 0.05% NASAL SPRAY 16 GM (FLONASE) NARES SCH ×2 (08:52→20:39)
[2020-03-24] MEDS: ACETAMINOPHEN TAB 650MG DOSE (2X325MG) PO PRN ×2 (08:53→18:18)
[2020-03-24] MEDS: ESCITALOPRAM OXALATE 10 MG TAB (LEXAPRO) PO SCH (08:53)
[2020-03-24] MEDS ORDERED: BENZTROPINE 1 MG TAB PO ONE (10:00)
[2020-03-24] MEDS: NICOTINE 21MG/24HR 1 EA TRANSDERMAL TD SCH (10:07)
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
[2020-03-24 13:50] LABS: HIV 1&2 SCREEN CENTAUR NEGATIVE (NEGATIVE)
[2020-03-24] MEDS: PROPRANOLOL 60 MG LA CAP PO SCH (20:39)
[2020-03-24] MEDS: AMITRIPTYLINE 10 MG TAB PO SCH (20:39)
[2020-03-25 06:33] VITALS: BP 124/72
[2020-03-25] MEDS: FLUTICASONE PROP 0.05% NASAL SPRAY 16 GM (FLONASE) NARES SCH ×2 (08:04→20:11)
[2020-03-25] MEDS: MONTELUKAST 10 MG TAB PO SCH (08:05)
[2020-03-25] MEDS: NICOTINE 21MG/24HR 1 EA TRANSDERMAL TD SCH (08:05)
[2020-03-25] MEDS: PRENATAL VITAMINS CHEWABLE TABLET PO SCH (08:05)
[2020-03-25] MEDS: ESCITALOPRAM OXALATE 10 MG TAB (LEXAPRO) PO SCH (08:05)
[2020-03-25] MEDS: ACETAMINOPHEN TAB 650MG DOSE (2X325MG) PO PRN (15:38)
[2020-03-25 17:14] VITALS: BP 122/77
[2020-03-25] MEDS: AMITRIPTYLINE 10 MG TAB PO SCH (20:09)
[2020-03-25] MEDS: PROPRANOLOL 60 MG LA CAP PO SCH (20:09)
[2020-03-26 07:24] VITALS: BP 133/98
[2020-03-26] MEDS: PRENATAL VITAMINS CHEWABLE TABLET PO SCH (08:58)
[2020-03-26] MEDS: FLUTICASONE PROP 0.05% NASAL SPRAY 16 GM (FLONASE) NARES SCH ×2 (08:59→20:50)
[2020-03-26] MEDS: NICOTINE 21MG/24HR 1 EA TRANSDERMAL TD SCH (09:00)
[2020-03-26] MEDS: MONTELUKAST 10 MG TAB PO SCH (09:00)
[2020-03-26] MEDS: ESCITALOPRAM OXALATE 10 MG TAB (LEXAPRO) PO SCH (09:00)
--- NOTE | 2020-03-26 10:27 | MHHPEPDOC ---
[facility] History & Physical History and Physical Date of service: 03/26/2020 Subjective HPI: The patient is met with, the note type is incorrect as the original H&P was not showing at the time of this note, patient reports that she is doing better. Some behavioral issues in terms of being loud and irritable, but has reportedly been doing quite well on the unit. She reports she is interested in being discharged. Objective General: Well dressed with good hygiene Speech: Spontaneous and fluid Thought processes: Linear and logical Thought content: Future orientated Abstract reasoning, and computation: Intact Description of associations: Intact Description of abnormal or psychotic thoughts:Denies any suicidal or homicidal ideation. Denies any auditory or visual hallucinations. Does not appear to be responding to internal stimuli. Does not appear to be endorsing any bizarre or paranoid ideation. Judgment: fair Insight: fair Orientation: Alert and orientated 3 Recent and remote memory: Intact Attention span and concentration: Intact Fund of knowledge: Adequate Mood: "okay" Affect: Euthymic with a full range Assessment antisocial personality disorder PTSD, chronic Plan Continue Lexapro at this time, will discharge tomorrow if continues to be stable Vital Signs Vital Signs Date Time Temp Pulse Resp B/P (MAP) Pulse Ox O2 Delivery O2 Flow Rate FiO2 03/26/20 07:24 96.9 81 16 133/98 (110) Room Air 03/24/20 06:18 100 Medications Scheduled Amitriptyline HCl (Amitriptyline HCl) 10 Mg Tablet, 20 MG PO QHS, (Reported) Ergocalciferol (Vitamin D2) (Vitamin D2) 50,000 Units Cap, 50,000 UNITS PO Q2WK, (Reported) Escitalopram Oxalate (Escitalopram Oxalate) 10 Mg Tablet, 10 MG PO DAILY, (Reported) Montelukast Sodium (Montelukast Sodium) 10 Mg Tablet, 10 MG PO DAILY, (Reported) Propranolol HCl (Propranolol HCl ER) 60 Mg Cap.sa.24h, 60 MG PO QHS, (Reported) Scheduled PRN Fluticasone Propionate (Fluticasone Propionate) 16 Gm [place].susp, 1 SPRAY NARES BID PRN for CONGESTION, (Reported) Sumatriptan Succinate (Sumatriptan Succinate) 4 Mg/0.5 Ml Pen.injctr, 0.5 ML D AILY PRN for MIGRAINE, (Reported) Miscellaneous Medications Pnv,Calcium 72/Iron/Folic Acid ( Vitamin Plus Low Iron) 1 Tab Tab, (Reported) Allergies Coded Allergies: aspirin (Verified Allergy, Severe, ITP, 03/23/20) ibuprofen (Verified Allergy, Severe, ITP, 03/23/20) codeine (Verified Allergy, Intermediate, HIVES, 03/23/20) Dust (Verified Allergy, Unknown, 10/09/19) POLLEN (Verified Allergy, Unknown, 10/09/19) hydrocodone (Verified Allergy, Unknown, HIVES ITCHING, 03/23/20) latex (Verified Allergy, Unknown, HIVES ITCHING, 03/23/20) DAGO GAMEZ DO Mar 26, 2020 10:27
--- NOTE | 2020-03-26 15:59 | MHIPN ---
DATE OF EVALUATION: 03/24/2020 HISTORY OF PRESENT ILLNESS: The patient today tells me Im good. I'm feeling more rested. She tells me I was having suicidal thoughts because I was feeling as a failure as a mom. She admitted to having had homicidal ideations towards mom because she feels that mom is trying to keep her away from her children. The patient tells me that she is not manic because she says that she was told that she has thyroiditis and she saw Dr. Benoit and that they feel that that is what was making her behave in a manic fashion. She does tell me I know I have depression. She did have a baby in October of this year, but she is telling me today that she is felling fine and she is resistive to trying any other medications. MENTAL STATUS EXAM: She is alert and oriented times 3. Eye contact is good. Speech is pressured. She has flight of ideas. She says that her mood is better, but affect is a bit labile. She is denying any hallucinations. I did not elicit any actual delusions. She is denying suicidal ideation or homicidal ideation today, but admits to having both of them yesterday. Concentration is poor. Memory grossly intact. Insight and judgment poor. DIAGNOSIS: Bipolar disorder type-1 manic with possible psychotic symptoms. TREATMENT PLAN: At this point the patient appears to be quite manic, possibly delusional and she is on Lexapro 10 mg and amitriptyline 25 mg at bedtime. I recommend that we start her on a mood stabilizer or an antipsychotic, but the patient is resistive to taking any other medications. [facility]
[2020-03-26 20:51] VITALS: BP 163/92
[2020-03-26] MEDS: AMITRIPTYLINE 10 MG TAB PO SCH (20:51)
[2020-03-26] MEDS: PROPRANOLOL 60 MG LA CAP PO SCH (20:51)
[2020-03-27 06:17] VITALS: BP 116/75
[2020-03-27] MEDS: PRENATAL VITAMINS CHEWABLE TABLET PO SCH (08:47)
[2020-03-27] MEDS: FLUTICASONE PROP 0.05% NASAL SPRAY 16 GM (FLONASE) NARES SCH (08:47)
[2020-03-27] MEDS: MONTELUKAST 10 MG TAB PO SCH (08:48)
[2020-03-27] MEDS: ESCITALOPRAM OXALATE 10 MG TAB (LEXAPRO) PO SCH (08:48)
[2020-03-27] MEDS: NICOTINE 21MG/24HR 1 EA TRANSDERMAL TD SCH (08:48)
--- NOTE | 2020-03-27 12:30 | MHDSPDOC ---
[facility] Discharge Summary Discharge Summary DATE OF ADMISSION: Mar 23, 2020 at 14:55 DATE OF DISCHARGE:Mar 27, 2020 at 12:15 DISCHARGE DIAGNOSES: PTSD, chronic Antisocial personality disorder CONSULTANTS INVOLVED:[ None (basic hospitalist screening)] REASON FOR ADMISSION & TREATMENT AND PROGRESS ON THE UNIT : . The patient was admitted to the inpatient mental health unit after reportedly making suicidal statements, she was initially observed resumed on her home Lexapro without incident. She was somewhat irritable at times, however, generally became amenable, she was observed without any major problems and compared to her previous admission, where I was a resident and treating her, she was much improved. Other than some irritability and mild demeaning this, she did not have any significant behavioral problems. DISCHARGE ASSESSMENT[improved] Legal status considerations: The patient at the time of discharge did not meet criteria for involuntary admission/extension due to having a [normal] mental status exam, [fair] insight into the situation, They are engaged in the discharge process, as well as being friendly and amenable in behavioral control and havent been engaging in any observed concerning behavior or ideation recently. They decline voluntary extension/admission at this time and must be discharged in good hsahid, as Im unable to make a case for holding the patient against their will. They may have historical risk factors of admissions and other interactions with psychiatry however, those are not modifiable from a clinical perspective. The patient will need to be discharged in good shahid. MENTAL STATUS EXAMINATION ON DISCHARGE: [General: Well dressed with good hygiene Speech: Spontaneous and fluid Thought processes: Linear and logical Thought content: Future orientated Abstract reasoning, and computation: Intact Description of associations: Intact Description of abnormal or psychotic thoughts:Denies any suicidal or homicidal ideation. Denies any auditory or visual hallucinations. Does not appear to be responding to internal stimuli. Does not appear to be endorsing any bizarre or paranoid ideation. Judgment: fair Insight: fair Orientation: Alert and orientated 3 Recent and remote memory: Intact Attention span and concentration: Intact Fund of knowledge: Adequate Mood: "okay" Affect: Euthymic with a full range] PLAN/FOLLOWUP ARRANGEMENTS: Follow up appointments made (PCP and MH in 5 days of D/C date) and safety plan completed. Safety Planning aspects completed prior to discharge [Family contact completed, educated on safe practices, instructed on removal and mitigation of dangerous means] [RN reviewed crisis hotline information and other aspects to empower patient to access care in interim before next appointment.] The amount of time spent in the coordination of care for this patient was approximately 30 minutes. Vital Signs/I&Os Vital Signs Date Time Temp Pulse Resp B/P (MAP) Pulse Ox O2 Delivery O2 Flow Rate FiO2 03/27/20 06:17 98.7 73 12 116/75 (89) Room Air 03/24/20 06:18 100 Medications Scheduled Amitriptyline HCl (Amitriptyline HCl) 10 Mg Tablet, 20 MG PO QHS, (Reported) Ergocalciferol (Vitamin D2) (Vitamin D2) 50,000 Units Cap, 50,000 UNITS PO Q2WK, (Reported) Escitalopram Oxalate (Escitalopram Oxalate) 10 Mg Tablet, 10 MG PO DAILY, (Reported) Montelukast Sodium (Montelukast Sodium) 10 Mg Tablet, 10 MG PO DAILY, (Reported) Propranolol HCl (Propranolol HCl ER) 60 Mg Cap.sa.24h, 60 MG PO QHS, (Reported) Scheduled PRN Fluticasone Propionate (Fluticasone Propionate) 16 Gm [place].susp, 1 SPRAY NARES BID PRN for CONGESTION, (Reported) Sumatriptan Succinate (Sumatriptan Succinate) 4 Mg/0.5 Ml Pen.injctr, 0.5 ML DAILY PRN for MIGRAINE, (Reported) Miscellaneous Medications Pnv,Calcium 72/Iron/Folic Acid ( Vitamin Plus Low Iron) 1 Tab Tab, #30 (Reported) Allergies Coded Allergies: aspirin (Verified Allergy, Severe, ITP, 03/23/20) ibuprofen (Verified Allergy, Severe, ITP, 03/23/20) codeine (Verified Allergy, Intermediate, HIVES, 03/23/20) Dust (Verified Allergy, Unknown, 10/09/19) POLLEN (Verified Allergy, Unknown, 10/09/19) hydrocodone (Verified Allergy, Unknown, HIVES ITCHING, 03/23/20) latex (Verified Allergy, Unknown, HIVES ITCHING, 03/23/20) DAGO GAMEZ DO Mar 27, 2020 12:30
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
[2020-04-06] MEDS ORDERED: VITAMIN D 50,000 UNITS CAPSULE (ERGOCALCIFEROL 1.25MG) PO SCH (09:00)
== END 2020-03-27 12:15 | disposition home or self-care (01) | DRG 755 ==
LOC: M ED 05:27 → M ED INP 03-23 14:55 → M PSY 03-23 17:05
PROVIDERS: ADMIT Psychiatry & Neurology Addiction Medicine; ATTEND Psychiatry & Neurology Addiction Medicine
DX: F43.12 Post-traumatic stress disorder, chronic (principal); E06.3 Autoimmune thyroiditis; R45.851 Suicidal ideations; R45.850 Homicidal ideations; J30.89 Other allergic rhinitis; J30.1 Allergic rhinitis due to pollen; F60.2 Antisocial personality disorder; F17.200 Nicotine dependence, unspecified, uncomplicated; Z20.2 Contact with and (suspected) exposure to infections with a predominantly sexual mode of transmission; G43.909 Migraine, unspecified, not intractable, without status migrainosus; Z79.899 Other long term (current) drug therapy; Z88.5 Allergy status to narcotic agent; Z88.6 Allergy status to analgesic agent; Z88.8 Allergy status to other drugs, medicaments and biological substances; Z91.040 Latex allergy status

== ENCOUNTER 2020-04-02 21:10 | Inpatient (IN) | payer MEDICAID, OTHER ==
[~2020-04-02] VITALS: Ht 152.4 cm; Wt 59.4 kg
[~2020-04-02 21:10] MED LIST changes: +AMIT10TA PO; +ESCI10TA2 PO; +FLUTISP NARES; +MONT10TA4 PO; +PROP60CA PO; +SUMA4INJ3; +VITA50005 PO
[2020-04-02] MEDS ORDERED: LORazepam 2 MG/ML VIAL IM ONE (22:15)
[2020-04-02] MEDS ORDERED: diphenhydrAMINE 50MG/ML VIAL (J1200) IM ONE (22:15)
[2020-04-02] MEDS ORDERED: HALOPERIDOL 5MG/ML VIAL (J1630 PER 1) IM ONE (22:15)
[2020-04-02 22:22] LABS: HEMATOCRIT 35.3 % (36.0-47.0); HEMOGLOBIN 11.5 g/dl (12.0-15.5); MEAN CORPUSCULAR HEMOGLOBIN 29.3 pg (27.0-33.0); MEAN CORPUSCULAR HGB CONC 32.6 g/dl (32.0-36.5); MEAN CORPUSCULAR VOLUME 90.1 fl (80.0-96.0); PLATELET COUNT, AUTOMATED 307 10^3/uL (150-450); RED BLOOD COUNT 3.92 10^6/uL (4.00-5.40); WHITE BLOOD COUNT 13.5 10^3/uL (4.0-10.0)
[2020-04-02 22:33] LABS: AMPHETAMINES LEVEL URINE NEGATIVE (NEGATIVE); BARBITURATES URINE NEGATIVE (NEGATIVE); BENZODIAZEPINES URINE NEGATIVE (NEGATIVE); CANNABINOIDS URINE POSITIVE (NEGATIVE); COCAINE METABOLITE URINE NEGATIVE (NEGATIVE); METHADONE URINE NEGATIVE (NEGATIVE); OPIATES URINE NEGATIVE (NEGATIVE); PHENCYCLIDINE URINE NEGATIVE (NEGATIVE)
[2020-04-02 23:01] LABS: ACETAMINOPHEN LEVEL < 2.0 UG/ML (10.0-30.0); ALT/SGPT 17 U/L (12-78); BILIRUBIN,DIRECT 0.1 MG/DL (0.0-0.2); BILIRUBIN,TOTAL 0.5 MG/DL (0.2-1.0); BLOOD UREA NITROGEN 15 MG/DL (7-18); CALCIUM LEVEL 9.1 MG/DL (8.5-10.1); CARBON DIOXIDE LEVEL 23 MEQ/L (21-32); CHLORIDE LEVEL 111 MEQ/L (98-107); CREATININE FOR GFR 0.64 MG/DL (0.55-1.30); ETHYL ALCOHOL (ETHANOL) < 0.003 % (0.000-0.010); GLOMERULAR FILTRATION RATE > 60.0 (>60); GLUCOSE, FASTING 88 MG/DL (70-100); POTASSIUM SERUM 3.6 MEQ/L (3.5-5.1); SALICYLATE LEVEL 3.4 MG/DL (5.0-30.0); SODIUM LEVEL 143 MEQ/L (136-145); THYROID STIMULATING HORMONE 0.286 uIU/ML (0.358-3.740)
[2020-04-02 23:16] LABS: HCG, SERUM QUALITATIVE NEGATIVE (NEGATIVE)
[2020-04-03] MEDS ORDERED: PRENATAL VITAMINS CHEWABLE TABLET PO ONE (08:45)
[2020-04-03] MEDS ORDERED: ESCITALOPRAM OXALATE 10 MG TAB (LEXAPRO) PO ONE (08:45)
[2020-04-03] MEDS ORDERED: MONTELUKAST 10 MG TAB PO ONE (08:45)
[2020-04-03] MEDS ORDERED: MULTTAB20 PO (08:50)
[2020-04-03] MEDS ORDERED: ESCITALOPRAM OXALATE 10 MG TAB (LEXAPRO) PO SCH (09:00)
[2020-04-03] MEDS ORDERED: ACETAMINOPHEN TAB 650MG DOSE (2X325MG) PO ONE (09:45)
[2020-04-03] MEDS ORDERED: FLUTICASONE PROP 0.05% NASAL SPRAY 16 GM (FLONASE) NARES PRN (15:15)
[2020-04-03] MEDS ORDERED: MAALOX 30 ML SUSP *UDC PO PRN (15:15)
[2020-04-03] MEDS ORDERED: MOM 30ML SUSPENSION UDC PO PRN (15:15)
[2020-04-03] MEDS ORDERED: OLANZapine ORAL DISINTEGRATING TAB 5MG PO PRN (15:15)
[2020-04-03 17:30] VITALS: BP 137/73
[2020-04-03] MEDS: ACETAMINOPHEN TAB 650MG DOSE (2X325MG) PO PRN (20:14)
[2020-04-03] MEDS: AMITRIPTYLINE 10 MG TAB PO SCH (20:15)
[2020-04-03] MEDS: traZODone 50 MG TAB PO PRN (20:15)
[2020-04-03] MEDS: PROPRANOLOL 60 MG LA CAP PO SCH (20:15)
[2020-04-04 06:45] VITALS: BP 136/81
[2020-04-04] MEDS: ESCITALOPRAM OXALATE 10 MG TAB (LEXAPRO) PO SCH (08:28)
[2020-04-04] MEDS: NICOTINE 21MG/24HR 1 EA TRANSDERMAL TD SCH (08:28)
[2020-04-04] MEDS: MONTELUKAST 10 MG TAB PO SCH (08:28)
--- NOTE | 2020-04-04 10:22 | HPEPDOC ---
[facility] Medical History & Physical Date of Admission Apr 04, 2020 Date of Service: Apr 04, 2020 History and Physical CHIEF COMPLAINT: medical exam HISTORY OF PRESENT ILLNESS: 34 y/o AA female with h/o hyperthyroidism followed [facility] by Dr. Elvie Benoit on chronic propranolol admitted to [facility] for bipolar disorder c/o diarrhea 3x/daily, fever, 30lb weight loss in 6mos , palpitations, n/v at home prior to presentation. Despite these complaints, pt's electrolytes, renal function, and bicarbonate are normal. Pt was scheduled to see ENT on 05/04/20. No other c/o. Bipolar symptoms being managed by primary team. PAST MEDICAL HISTORY: History of thyroid problems bipolar disorder History of ITP History of migraine headaches PAST SURGICAL HISTORY: 4X C-sections Tonsillectomy Tubal ligation SOCIAL HISTORY: Denies alcohol use Endorses smoking 1-1/2 pack per day tobacco and vaping Endorses cannabis use but no other illicit drugs FAMILY HISTORY: Noncontributory ALLERGIES: Please see below. REVIEW OF SYSTEMS:10 point ROS (-) aside from (+) findings on HPI HOME MEDICATIONS: Please see below. PHYSICAL EXAMINATION: vitals: see below Constitutional: Awake and alert, pressured speech, anxious. no conversational dyspnea ENT: Sclera are clear. Mucosa is moist. thyromegaly. no stridor or tracheal deviation Respiratory: Lungs CTA bilaterally. No respiratory distress. No use of accessory muscles. Cardiovascular: RRR S1 and S2 are normal, no murmur.not tachycardic Gastrointestinal: Abdomen is soft, non distended, non tender, BS present. no HSM. no CVAT Musculoskeletal: No edema. Neurologic: No focal neurological deficit. Mental Status: A&O x3, pressured speech Skin: Warm, dry LABORATORY DATA: See below. IMAGING: none MICROBIOLOGY: Please see below. ASSESSMENT: 34-year-old female admitted to psychiatric unit seen for bipolar d/o with c/o 6mos weight loss, diarrhea, and fever. Despite these complaints, pt has no acute electrolyte or acid base imbalance. Her tachycardia is controlled by propranolol. PROBLEM LIST: Bipolar disorder Hyperthyroidism, unspecified h/o ITP PLAN: obtain records from Dr. Elvie Benoit, Ferris Wheel [employer]. recheck thyroid profile, cmp, cbc and esr. no fever. check gi panel if persistent diarrhea. no signs and symptoms of thyroid storm to necessitate transfer to medical floor. will sign off for now. pls reconsult for new medical complaints. Vital Signs Vital Signs Date Time Temp Pulse Resp B/P (MAP) Pulse Ox O2 Delivery O2 Flow Rate FiO2 04/04/20 06:45 98.0 69 14 136/81 (99) 98 Room Air Home Medications Scheduled Amitriptyline HCl (Amitriptyline HCl) 10 Mg Tablet, 20 MG PO QHS Ergocalciferol (Vitamin D2) (Vitamin D2) 50,000 Units Cap, 50,000 UNITS PO Q2WK Escitalopram Oxalate (Escitalopram Oxalate) 10 Mg Tablet, 10 MG PO DAILY Montelukast Sodium (Montelukast Sodium) 10 Mg Tablet, 10 MG PO DAILY No122/Iron/Folic Acid ( Multi Tablet) 1 Each Tablet, 1 TAB PO DAILY Propranolol HCl (Propranolol HCl ER) 60 Mg Cap.sa.24h, 60 MG PO QHS Scheduled PRN Fluticasone Propionate (Fluticasone Propionate) 16 Gm [place].susp, 1 SPRAY NARES BID PRN for CONGESTION Sumatriptan Succinate (Sumatriptan Succinate) 4 Mg/0.5 Ml Pen.injctr, 0.5 ML DAILY PRN for MIGRAINE Allergies Coded Allergies: codeine (Verified Allergy, Intermediate, HIVES, 04/02/20) hydrocodone (Verified Allergy, Intermediate, HIVES ITCHING, 04/02/20) latex (Verified Allergy, Intermediate, HIVES ITCHING, 04/02/20) Dust (Verified Allergy, Unknown, 04/02/20) POLLEN (Verified Allergy, Unknown, 04/02/20) aspirin (Verified Adverse Reaction, Intermediate, ITP, 04/02/20) ibuprofen (Verified Adverse Reaction, Intermediate, ITP, 04/03/20) PATIENT IS LIMITED TO 1+600MG OR LESS A DAY PER NEUROLOGY (DR Ken ZUNIGA) A-FIB/CHADSVASC A-FIB History Current/History of A-Fib/PAF?: No Current PO Anticoag Therapy: No Age/Risk Factor Scoring CHADSVASC: CHADSVASC Response (Comments) Value Age Risk Factor Age < 65 years old 0 Gender Risk Factor Female 1 Hx of CHF No 0 Hx of HTN No 0 Hx of Stroke/TIA/or VTE No 0 Hx of Diabetes No 0 Hx of Vascular Disease No 0 Total 1 Treatment Treatment ordered: NONE LOREE WEBER MD Apr 04, 2020 07:17
[2020-04-04 11:46] LABS: BASO % 0.3 % (0.0-1.0); EOS # 0.1 10^3/uL (0.0-0.5); EOS % 1.2 % (0.0-3.0); HEMATOCRIT 38.6 % (36.0-47.0); HEMOGLOBIN 12.1 g/dl (12.0-15.5); IONIZED CALCIUM 4.4 MG/DL (4.5-5.3); LYMPH # 3.1 10^3/uL (1.5-5.0); LYMPH % 27.5 % (24.0-44.0); MEAN CORPUSCULAR HEMOGLOBIN 28.3 pg (27.0-33.0); MEAN CORPUSCULAR HGB CONC 31.3 g/dl (32.0-36.5); MEAN CORPUSCULAR VOLUME 90.2 fl (80.0-96.0); MONO # 0.8 10^3/uL (0.0-0.8); MONO % 7.5 % (0.0-5.0); NEUTROPHILS # 7.1 10^3/uL (1.5-8.5); NEUTROPHILS % 63.2 % (36.0-66.0); PLATELET COUNT, AUTOMATED 305 10^3/uL (150-450); RED BLOOD COUNT 4.28 10^6/uL (4.00-5.40); WHITE BLOOD COUNT 11.3 10^3/uL (4.0-10.0)
[2020-04-04 12:14] LABS: ERYTHROCYTE SEDIMENTATION RATE 15 mm/hr (0-20)
[2020-04-04 12:26] LABS: ALBUMIN 4.1 GM/DL (3.2-5.2); ALT/SGPT 20 U/L (12-78); BILIRUBIN,TOTAL 0.3 MG/DL (0.2-1.0); BLOOD UREA NITROGEN 14 MG/DL (7-18); CALCIUM LEVEL 8.6 MG/DL (8.5-10.1); CARBON DIOXIDE LEVEL 25 MEQ/L (21-32); CHLORIDE LEVEL 111 MEQ/L (98-107); CREATININE FOR GFR 0.63 MG/DL (0.55-1.30); FREE THYROXINE INDEX 4.2 % (1.3-4.8); GLOMERULAR FILTRATION RATE > 60.0 (>60); GLUCOSE, FASTING 109 MG/DL (70-100); MAGNESIUM LEVEL 2.2 MG/DL (1.8-2.4); POTASSIUM SERUM 3.7 MEQ/L (3.5-5.1); SODIUM LEVEL 141 MEQ/L (136-145); T UPTAKE 35 % (30-39); THYROID STIMULATING HORMONE 0.166 uIU/ML (0.358-3.740); TOTAL PROTEIN 7.2 GM/DL (6.4-8.2)
--- NOTE | 2020-04-04 12:53 | MHHPEPDOC ---
[facility] History & Physical History and Physical DATE OF ADMISSION: Apr 03, 2020 at 15:01 HPI: Kimberley presents today for a mental health examine. She is being readmitted for adjustment problems shortly after being discharged from the unit. She had reportedly been smoking marijuana, but then subsequently had been driving her car on the grounds of a local high school, being arrested after calling her mother and making threats of entering her. Patient was irritable, distorted, pressured in speech. When she was met with, she was grandiose and pressured, which was unusual for her nature. She reported that she was both manic and depressive and generally did not contribute much of what had caused her problems. Patient otherwise reports no major changes. She continues to report some unusual thyroid condition. She has multiple children that are no longer in her custody and CPS was involved due to multiple legal charges due to her misadventures both prior and prior to admission. MEDICATIONS: She is currently being treated with Lexapro. MEDICAL HISTORY: Patient has a past medical history of antisocial personality and depression. She also has a history of substance use, however, she denies it at this time. FAMILY HISTORY: Patient has a family history of multiple mental health concerns, including depression. 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 Objective Affect: Elated. Grandiose. Speech: Normal volume. Pressured. Rapid. Thought Form: Associations mildly loosened. Thought Content: No evidence of aggressive or homicidal ideation. No evidence of delusions. No thoughts of self harm. Reports vague suicidal thoughts. Judgement: Poor. Insight: Poor. Assessment F29 Unspecified psychosis not due to a substance or known physiological condition F60.2 Antisocial personality disorder F63.89 Other impulse disorders F12.99 Cannabis use, unspecified with unspecified cannabis-induced disorder Plan Continue the whole medications monitor. She is a known synthetic marijuana user, thus I'm concerned, especially given the rapid change in her mental status, especially with the drug use, that this could be a sub synthetic induced problem. This can cause people to appear somewhat mildly grandiose when in fact they are not. Her treatment priorities are: 1. Risk for aggression. 2. Substance use. Estimated length of stay is 1 to 5 days. Vital Signs Vital Signs Date Time Temp Pulse Resp B/P (MAP) Pulse Ox O2 Delivery O2 Flow Rate FiO2 04/04/20 08:58 Room Air 04/04/20 06:45 98.0 69 14 136/81 (99) 98 Laboratory Data 24H Labs Laboratory Tests 2 04/04/20 11:36: Immature Granulocyte % (Auto) 0.3, Neutrophils (%) (Auto) 63.2, Lymphocytes (%) (Auto) 27.5, Monocytes (%) (Auto) 7.5H, Eosinophils (%) (Auto) 1.2, Basophils (%) (Auto) 0.3, Neutrophils # (Auto) 7.1, Lymphocytes # (Auto) 3.1, Monocytes # (Auto) 0.8, Eosinophils # (Auto) 0.1, Basophils # (Auto) 0.0, Nucleated Red Blood Cells % (auto) 0.0, Erythrocyte Sedimentation Rate 15, Anion Gap 5L, Glomerular Filtration Rate > 60.0, Calcium Level 8.6, Whole Blood Ionized Calcium 4.4L, Magnesium Level 2.2, Total Bilirubin 0.3, Aspartate Amino Transf (AST/SGOT) 13, Alanine Aminotransferase (ALT/SGPT) 20, Alkaline Phosphatase 61, C-Reactive Protein, Quantitative 0.30, Total Protein 7.2, Albumin 4.1, Albumin/Globulin Ratio 1.3, Thyroid Stimulating Hormone (TSH) 0.166L, Free Thyroxine Index 4.2, Thyroxine (T4) 12.0, Triiodothyronine (T3) Uptake 35 CBC/BMP Laboratory Tests 04/04/20 11:36 Medications Scheduled Amitriptyline HCl (Amitriptyline HCl) 10 Mg Tablet, 20 MG PO QHS, (Reported) Ergocalciferol (Vitamin D2) (Vitamin D2) 50,000 Units Cap, 50,000 UNITS PO Q2WK, (Reported) Escitalopram Oxalate (Escitalopram Oxalate) 10 Mg Tablet, 10 MG PO DAILY, (Reported) Montelukast Sodium (Montelukast Sodium) 10 Mg Tablet, 10 MG PO DAILY, (Reported) No122/Iron/Folic Acid ( Multi Tablet) 1 Each Tablet, 1 TAB PO DAILY, (Reported) Propranolol HCl (Propranolol HCl ER) 60 Mg Cap.sa.24h, 60 MG PO QHS, (Reported) Scheduled PRN Fluticasone Propionate (Fluticasone Propionate) 16 Gm [place].susp, 1 SPRAY NARES BID PRN for CONGESTION, (Reported) Sumatriptan Succinate (Sumatriptan Succinate) 4 Mg/0.5 Ml Pen.injctr, 0.5 ML DAILY PRN for MIGRAINE, (Reported) Allergies Coded Allergies: codeine (Verified Allergy, Intermediate, HIVES, 04/02/20) hydrocodone (Verified Allergy, Intermediate, HIVES ITCHING, 04/02/20) latex (Verified Allergy, Intermediate, HIVES ITCHING, 04/02/20) Dust (Verified Allergy, Unknown, 04/02/20) POLLEN (Verified Allergy, Unknown, 04/02/20) aspirin (Verified Adverse Reaction, Intermediate, ITP, 04/02/20) ibuprofen (Verified Adverse Reaction, Intermediate, ITP, 04/03/20) PATIENT IS LIMITED TO 1+600MG OR LESS A DAY PER NEUROLOGY (DR Ken ZUNIGA) DAGO GAMEZ DO Apr 04, 2020 12:53
[2020-04-04] MEDS: ACETAMINOPHEN TAB 650MG DOSE (2X325MG) PO PRN (13:44)
[2020-04-04] MEDS: hydrOXYzine 25 MG TAB PO PRN (15:03)
[2020-04-04 16:21] VITALS: BP 140/90
[2020-04-04] MEDS: AMITRIPTYLINE 10 MG TAB PO SCH (20:00)
[2020-04-04] MEDS: PROPRANOLOL 60 MG LA CAP PO SCH (20:00)
[2020-04-05 06:39] VITALS: BP 148/88
[2020-04-05] MEDS: NICOTINE 21MG/24HR 1 EA TRANSDERMAL TD SCH (08:16)
[2020-04-05] MEDS: MONTELUKAST 10 MG TAB PO SCH (08:17)
[2020-04-05] MEDS: ESCITALOPRAM OXALATE 10 MG TAB (LEXAPRO) PO SCH (08:17)
[2020-04-05] MEDS: hydrOXYzine 25 MG TAB PO PRN ×3 (08:20→21:32)
[2020-04-05] MEDS: ACETAMINOPHEN TAB 650MG DOSE (2X325MG) PO PRN (11:45)
--- NOTE | 2020-04-05 15:04 | MHIPNPDOC ---
[facility] Progress Note Progress Note DATE OF SERVICE: 04/05/20 HPI: Kimberley presents today for a follow up. Patient reports she wants to go to rehab and subsequently admits she was using various substances. She states she was using Phyllis and Aline. Objective Thought Content: No evidence of aggressive or homicidal ideation. No evidence of delusions. Suicidal ideations. Judgement: Poor associations. 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 Make referral to impatient rehabilitation. She is a very high risk for relapse, and she is facing multiple charges. Vital Signs Vital Signs Date Time Temp Pulse Resp B/P (MAP) Pulse Ox O2 Delivery O2 Flow Rate FiO2 04/05/20 08:12 Room Air 04/05/20 06:39 98.0 71 18 148/88 (108) 04/04/20 06:45 98 Current Medications Current Medications Medications (Trade) Dose Ordered Sig/Sima Route PRN Reason Start Time Stop Time Status Last Admin Dose Admin Acetaminophen (Tylenol Tab) 650 mg Q6HP PRN PO HEADACHE or DISCOMFORT 04/03/20 15:15 04/05/20 11:45 Al Hydrox/Mg Hydrox/Simethicone (Mylanta) 30 ml Q4HP PRN PO HEARTBURN/INDIGESTION 04/03/20 15:15 Amitriptyline HCl (Elavil) 20 mg QHS PO 04/03/20 21:00 04/04/20 20:00 Escitalopram Oxalate (Lexapro) 10 mg DAILY PO 04/03/20 09:00 04/03/20 17:08 DC Escitalopram Oxalate (Lexapro) 10 mg DAILY PO 04/04/20 09:00 04/05/20 08:17 Fluticasone Propionate (Flonase 0.05% Nasal [place]) 1 spray BID PRN NARES CONGESTION 04/03/20 15:15 Home Med (Med Rec Complete!) ASDIRECTED XX 04/03/20 09:00 04/03/20 08:53 DC Hydroxyzine HCl (Atarax) 25 mg Q6HP PRN PO ANXIETY 04/04/20 12:00 04/05/20 08:20 Ibuprofen (Advil) 800 mg BIDP PRN PO MODERATE PAIN (PS 5-7) 04/03/20 17:30 Magnesium Hydroxide (Milk Of Magnesia) 30 ml DAILYPRN PRN PO CONSTIPATION 04/03/20 15:15 Montelukast Sodium (Singulair) 10 mg DAILY PO 04/04/20 09:00 04/05/20 08:17 Nicotine (Nicoderm Cq 21mg) 1 patch DAILY TD 04/04/20 09:00 04/05/20 08:16 Olanzapine (ZyPREXA ZYDIS) 10 mg Q4HP PRN PO ANXIETY/AGITATION 04/03/20 15:15 04/04/20 20:00 Propranolol HCl (Inderal La) 60 mg QHS PO 04/03/20 21:00 04/04/20 20:00 Trazodone HCl (Desyrel) 50 mg QHSP PRN PO INSOMNIA 04/03/20 15:15 04/03/20 20:15 Allergies Coded Allergies: codeine (Verified Allergy, Intermediate, HIVES, 04/02/20) hydrocodone (Verified Allergy, Intermediate, HIVES ITCHING, 04/02/20) latex (Verified Allergy, Intermediate, HIVES ITCHING, 04/02/20) Dust (Verified Allergy, Unknown, 04/02/20) POLLEN (Verified Allergy, Unknown, 04/02/20) aspirin (Verified Adverse Reaction, Intermediate, ITP, 04/02/20) ibuprofen (Verified Adverse Reaction, Intermediate, ITP, 04/03/20) PATIENT IS LIMITED TO 1+600MG OR LESS A DAY PER NEUROLOGY (DR Ken ZUNIGA) DAGO GAMEZ DO Apr 05, 2020 15:04
[2020-04-05] MEDS: IBUPROFEN 800 MG TAB PO PRN (15:37)
[2020-04-05 16:42] VITALS: BP 139/84
[2020-04-05] MEDS: AMITRIPTYLINE 10 MG TAB PO SCH (20:55)
[2020-04-05] MEDS: PROPRANOLOL 60 MG LA CAP PO SCH (20:59)
[2020-04-06 06:51] VITALS: BP 143/87
[2020-04-06] MEDS: MONTELUKAST 10 MG TAB PO SCH (07:50)
[2020-04-06] MEDS: hydrOXYzine 25 MG TAB PO PRN ×3 (07:50→20:29)
[2020-04-06] MEDS: ESCITALOPRAM OXALATE 10 MG TAB (LEXAPRO) PO SCH (07:50)
[2020-04-06] MEDS: NICOTINE 21MG/24HR 1 EA TRANSDERMAL TD SCH (07:51)
--- NOTE | 2020-04-06 10:13 | MHIPNPDOC ---
[facility] Progress Note Progress Note DATE OF SERVICE: 04/06/20 HPI: The patient has been met with today. She reports that she wants to have her building inspection engineer remove her thyroid. She states that she's very interesting going to rehab due to facing multiple charges. She's notably less pressured today and is social with other patients. Objective Mood: Less pressured. Speech: Normal rate. Less grandiose. Normal volume. Spontaneous and Fluid. Cognition: Associations intac. Thought Content: Reports intermittent suicidal thoughts, vague. No homicidal thoughts. Judgement: Poor. Insight: Poor. Assessment F60.2 Antisocial personality disorder F12.10 Cannabis abuse, uncomplicated F31.89 Other bipolar disorder Plan Continue medications as current. Likely substance-induced issues brought her in, will triage her to rehab, referral in Vital Signs Vital Signs Date Time Temp Pulse Resp B/P (MAP) Pulse Ox O2 Delivery O2 Flow Rate FiO2 04/06/20 06:51 97.9 83 18 143/87 (105) Room Air 04/04/20 06:45 98 Current Medications Current Medications Medications (Trade) Dose Ordered Sig/Sima Route PRN Reason Start Time Stop Time Status Last Admin Dose Admin Acetaminophen (Tylenol Tab) 650 mg Q6HP PRN PO HEADACHE or DISCOMFORT 04/03/20 15:15 04/05/20 11:45 Al Hydrox/Mg Hydrox/Simethicone (Mylanta) 30 ml Q4HP PRN PO HEARTBURN/INDIGESTION 04/03/20 15:15 Amitriptyline HCl (Elavil) 20 mg QHS PO 04/03/20 21:00 04/05/20 20:55 Escitalopram Oxalate (Lexapro) 10 mg DAILY PO 04/03/20 09:00 04/03/20 17:08 DC Escitalopram Oxalate (Lexapro) 10 mg DAILY PO 04/04/20 09:00 04/06/20 07:50 Fluticasone Propionate (Flonase 0.05% Nasal [place]) 1 spray BID PRN NARES CONGESTION 04/03/20 15:15 Home Med (Med Rec Complete!) ASDIRECTED XX 04/03/20 09:00 04/03/20 08:53 DC Hydroxyzine HCl (Atarax) 25 mg Q6HP PRN PO ANXIETY 04/04/20 12:00 04/06/20 07:50 Ibuprofen (Advil) 800 mg BIDP PRN PO MODERATE PAIN (PS 5-7) 04/03/20 17:30 04/05/20 15:37 Magnesium Hydroxide (Milk Of Magnesia) 30 ml DAILYPRN PRN PO CONSTIPATION 04/03/20 15:15 Montelukast Sodium (Singulair) 10 mg DAILY PO 04/04/20 09:00 04/06/20 07:50 Nicotine (Nicoderm Cq 21mg) 1 patch DAILY TD 04/04/20 09:00 04/06/20 07:51 Olanzapine (ZyPREXA ZYDIS) 10 mg Q4HP PRN PO ANXIETY/AGITATION 04/03/20 15:15 04/04/20 20:00 Propranolol HCl (Inderal La) 60 mg QHS PO 04/03/20 21:00 04/05/20 20:59 Trazodone HCl (Desyrel) 50 mg QHSP PRN PO INSOMNIA 04/03/20 15:15 04/03/20 20:15 Allergies Coded Allergies: codeine (Verified Allergy, Intermediate, HIVES, 04/02/20) hydrocodone (Verified Allergy, Intermediate, HIVES ITCHING, 04/02/20) latex (Verified Allergy, Intermediate, HIVES ITCHING, 04/02/20) Dust (Verified Allergy, Unknown, 04/02/20) POLLEN (Verified Allergy, Unknown, 04/02/20) aspirin (Verified Adverse Reaction, Intermediate, ITP, 04/02/20) ibuprofen (Verified Adverse Reaction, Intermediate, ITP, 04/03/20) PATIENT IS LIMITED TO 1+600MG OR LESS A DAY PER NEUROLOGY (DAGO BO DO Apr 06, 2020 10:13
[2020-04-06] MEDS: IBUPROFEN 800 MG TAB PO PRN (11:33)
[2020-04-06] MEDS: ACETAMINOPHEN TAB 650MG DOSE (2X325MG) PO PRN (16:46)
[2020-04-06 18:03] VITALS: BP 135/86
[2020-04-06] MEDS: AMITRIPTYLINE 10 MG TAB PO SCH (20:29)
[2020-04-06] MEDS: PROPRANOLOL 60 MG LA CAP PO SCH (20:29)
[2020-04-07 07:01] VITALS: BP 125/71
[2020-04-07] MEDS: ESCITALOPRAM OXALATE 10 MG TAB (LEXAPRO) PO SCH (08:41)
[2020-04-07] MEDS: MONTELUKAST 10 MG TAB PO SCH (08:41)
[2020-04-07] MEDS: NICOTINE 21MG/24HR 1 EA TRANSDERMAL TD SCH (08:42)
[2020-04-07] MEDS ORDERED: NICOTINE POLACRILEX 2 MG GUM PO PRN (08:45)
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
[2020-04-07] MEDS: IBUPROFEN 800 MG TAB PO PRN ×2 (11:46→20:05)
[2020-04-07] MEDS: hydrOXYzine 25 MG TAB PO PRN (15:16)
[2020-04-07 17:59] VITALS: BP 133/89
[2020-04-07] MEDS: PROPRANOLOL 60 MG LA CAP PO SCH (20:04)
[2020-04-07] MEDS: AMITRIPTYLINE 10 MG TAB PO SCH (20:04)
[2020-04-08 07:04] VITALS: BP 142/68
[2020-04-08] MEDS: NICOTINE 21MG/24HR 1 EA TRANSDERMAL TD SCH (08:03)
[2020-04-08] MEDS: ESCITALOPRAM OXALATE 10 MG TAB (LEXAPRO) PO SCH (08:04)
[2020-04-08] MEDS: IBUPROFEN 800 MG TAB PO PRN (08:04)
[2020-04-08] MEDS: MONTELUKAST 10 MG TAB PO SCH (08:04)
--- NOTE | 2020-04-08 10:43 | MHIPNPDOC ---
[facility] Progress Note Progress Note DATE OF SERVICE: 04/08/20 Subjective HPI: Kimberley presents today for thyroid treatment. She reports talking to CPS but felt that CPS was going to cause difficulties for herPatient denies suicidal or homicidal ideations and reports being annoyed with her mother as she feels her mother is taking her kids away. Patient states she had an episode of agitation last night due to an argument with her auntPatient states she is looking forward to going to rehab and is trying to get her health under control. Objective Appearance: Well groomed. Well nourished. Appears to be stated age. Behavior: Cooperative with good eye contact. Engaged. Pleasant. Affect: Full range. Appropriate to context. Mood: Euthymic. Generally good. Appropriately reactive. Speech: Normal volume. Spontaneous and Fluid. Normal rate. Motor: No gross motor abnormalities. Cognition: Alert, Attentive, and Oriented to person, place, time. Memory: No formal testing. No gross abnormalities of short or long term care phlebotomist memory noted during interview. Thought Form: Much more linear. More logical. Thought Content: No thoughts of self harm. No evidence of suicidal ideation. No evidence of delusions. No evidence of aggressive or homicidal ideation. Perception: No perceptual abnormalities noted. Judgement: Intact as evidenced by decision making in the recent past. Insight: Good insight into symptoms and treatment options. Assessment F60.2 Antisocial personality disorder F31.89 Other bipolar disorder Plan Continue current medications, will alter Hydroxyzine to every four hours as needed for anxiety Touch base with animal killer to seek treatment. Transfer to rehab directly due to significant substance problems and other difficulties. Vital Signs Vital Signs Date Time Temp Pulse Resp B/P (MAP) Pulse Ox O2 Delivery O2 Flow Rate FiO2 04/08/20 07:04 98.6 82 18 142/68 (92) 100 Room Air Current Medications Current Medications Medications (Trade) Dose Ordered Sig/Sima Route PRN Reason Start Time Stop Time Status Last Admin Dose Admin Acetaminophen (Tylenol Tab) 650 mg Q6HP PRN PO HEADACHE or DISCOMFORT 04/03/20 15:15 04/06/20 16:46 Al Hydrox/Mg Hydrox/Simethicone (Mylanta) 30 ml Q4HP PRN PO HEARTBURN/INDIGESTION 04/03/20 15:15 Amitriptyline HCl (Elavil) 20 mg QHS PO 04/03/20 21:00 04/07/20 20:04 Escitalopram Oxalate (Lexapro) 10 mg DAILY PO 04/03/20 09:00 04/03/20 17:08 DC Escitalopram Oxalate (Lexapro) 10 mg DAILY PO 04/04/20 09:00 04/08/20 08:04 Fluticasone Propionate (Flonase 0.05% Nasal [place]) 1 spray BID PRN NARES CONGESTION 04/03/20 15:15 Home Med (Med Rec Complete!) ASDIRECTED XX 04/03/20 09:00 04/03/20 08:53 DC Hydroxyzine HCl (Atarax) 25 mg Q6HP PRN PO ANXIETY 04/04/20 12:00 04/07/20 15:16 Ibuprofen (Advil) 800 mg BIDP PRN PO MODERATE PAIN (PS 5-7) 04/03/20 17:30 04/08/20 08:04 Magnesium Hydroxide (Milk Of Magnesia) 30 ml DAILYPRN PRN PO CONSTIPATION 04/03/20 15:15 Montelukast Sodium (Singulair) 10 mg DAILY PO 04/04/20 09:00 04/08/20 08:04 Nicotine (Nicoderm Cq 21mg) 1 patch DAILY TD 04/04/20 09:00 04/08/20 08:03 Nicotine (Nicorette) 2 mg Q2HP PRN PO NICOTINE WITHDRAWAL 04/07/20 08:45 04/07/20 08:47 DC Olanzapine (ZyPREXA ZYDIS) 10 mg Q4HP PRN PO ANXIETY/AGITATION 04/03/20 15:15 04/04/20 20:00 Propranolol HCl (Inderal La) 60 mg QHS PO 04/03/20 21:00 04/07/20 20:04 Trazodone HCl (Desyrel) 50 mg QHSP PRN PO INSOMNIA 04/03/20 15:15 04/03/20 20:15 Allergies Coded Allergies: codeine (Verified Allergy, Intermediate, HIVES, 04/02/20) hydrocodone (Verified Allergy, Intermediate, HIVES ITCHING, 04/02/20) latex (Verified Allergy, Intermediate, HIVES ITCHING, 04/02/20) Dust (Verified Allergy, Unknown, 04/02/20) POLLEN (Verified Allergy, Unknown, 04/02/20) aspirin (Verified Adverse Reaction, Intermediate, ITP, 04/02/20) ibuprofen (Verified Adverse Reaction, Intermediate, ITP, 04/03/20) PATIENT IS LIMITED TO 1+600MG OR LESS A DAY PER NEUROLOGY (DR Ken ZUNIGA) DAGO GAMEZ DO Apr 08, 2020 10:43
[2020-04-08] MEDS: hydrOXYzine 25 MG TAB PO PRN ×3 (10:51→20:24)
[2020-04-08] MEDS: ACETAMINOPHEN TAB 650MG DOSE (2X325MG) PO PRN (17:47)
[2020-04-08 18:00] VITALS: BP 122/54
[2020-04-08] MEDS: AMITRIPTYLINE 10 MG TAB PO SCH (20:24)
[2020-04-08] MEDS: PROPRANOLOL 60 MG LA CAP PO SCH (20:24)
[2020-04-09] MEDS: ESCITALOPRAM OXALATE 10 MG TAB (LEXAPRO) PO SCH (08:33)
[2020-04-09] MEDS: IBUPROFEN 800 MG TAB PO PRN (08:34)
[2020-04-09] MEDS: MONTELUKAST 10 MG TAB PO SCH (08:34)
[2020-04-09] MEDS: NICOTINE 21MG/24HR 1 EA TRANSDERMAL TD SCH (08:35)
[2020-04-09] MEDS: hydrOXYzine 25 MG TAB PO PRN ×3 (10:02→20:33)
--- NOTE | 2020-04-09 11:05 | MHIPNPDOC ---
[facility] Progress Note Progress Note DATE OF SERVICE: 04/09/20 HPI: Kimberley presents today for her psych issues. The patient is met with today. She reports she wants to go. She reports she doesn't want to stay and that the she feels staff is not respectful towards (inaudible) rehab. She is no longer mandate to do it. She did make a vague threat towards her safety last night when she was upset about being told not to hug another individual. Objective Appearance: Fair hygiene. Appears to be stated age. Thought Form: Euthymic. No grandiose thoughts observed. Association intact. Linear and goal directed. Judgement: Limited but appears to be at baseline. Insight: Limited but appears to be at baseline. Assessment F19.10 Other psychoactive substance abuse, uncomplicated F31.9 Bipolar disorder, unspecified F12.90 Cannabis use, unspecified, uncomplicated F60.2 Antisocial personality disorder Plan Plan is to observe overnight. Discuss with patient that youd need to remain safe overnight for 24 hours before discharge could be undertaken. She understood this. She declines rehab and her mother has removed her access to a car. She has no access to Firearms which should hopefully limit her potential dangerousness as much as can be done. We still emphasized the need for Rehab, but she does not wish to have treatment for this at this time. Vital Signs Vital Signs Date Time Temp Pulse Resp B/P (MAP) Pulse Ox O2 Delivery O2 Flow Rate FiO2 04/08/20 20:24 101 122/54 04/08/20 18:00 98.6 12 04/08/20 07:04 100 Room Air Current Medications Current Medications Medications (Trade) Dose Ordered Sig/Sima Route PRN Reason Start Time Stop Time Status Last Admin Dose Admin Acetaminophen (Tylenol Tab) 650 mg Q6HP PRN PO HEADACHE or DISCOMFORT 04/03/20 15:15 04/08/20 17:47 Al Hydrox/Mg Hydrox/Simethicone (Mylanta) 30 ml Q4HP PRN PO HEARTBURN/INDIGESTION 04/03/20 15:15 Amitriptyline HCl (Elavil) 20 mg QHS PO 04/03/20 21:00 04/08/20 20:24 Escitalopram Oxalate (Lexapro) 10 mg DAILY PO 04/03/20 09:00 04/03/20 17:08 DC Escitalopram Oxalate (Lexapro) 10 mg DAILY PO 04/04/20 09:00 04/09/20 08:33 Fluticasone Propionate (Flonase 0.05% Nasal [place]) 1 spray BID PRN NARES CONGESTION 04/03/20 15:15 Home Med (Med Rec Complete!) ASDIRECTED XX 04/03/20 09:00 04/03/20 08:53 DC Hydroxyzine HCl (Atarax) 25 mg Q4H PRN PO ANXIETY 04/08/20 12:45 04/09/20 10:02 Hydroxyzine HCl (Atarax) 25 mg Q6HP PRN PO ANXIETY 04/04/20 12:00 04/08/20 12:31 DC 04/08/20 10:51 Ibuprofen (Advil) 800 mg BIDP PRN PO MODERATE PAIN (PS 5-7) 04/03/20 17:30 04/09/20 08:34 Magnesium Hydroxide (Milk Of Magnesia) 30 ml DAILYPRN PRN PO CONSTIPATION 04/03/20 15:15 Montelukast Sodium (Singulair) 10 mg DAILY PO 04/04/20 09:00 04/09/20 08:34 Nicotine (Nicoderm Cq 21mg) 1 patch DAILY TD 04/04/20 09:00 04/09/20 08:35 Nicotine (Nicorette) 2 mg Q2HP PRN PO NICOTINE WITHDRAWAL 04/07/20 08:45 04/07/20 08:47 DC Olanzapine (ZyPREXA ZYDIS) 10 mg Q4HP PRN PO ANXIETY/AGITATION 04/03/20 15:15 04/04/20 20:00 Propranolol HCl (Inderal La) 60 mg QHS PO 04/03/20 21:00 04/08/20 20:24 Trazodone HCl (Desyrel) 50 mg QHSP PRN PO INSOMNIA 04/03/20 15:15 04/03/20 20:15 Allergies Coded Allergies: codeine (Verified Allergy, Intermediate, HIVES, 04/02/20) hydrocodone (Verified Allergy, Intermediate, HIVES ITCHING, 04/02/20) latex (Verified Allergy, Intermediate, HIVES ITCHING, 04/02/20) Dust (Verified Allergy, Unknown, 04/02/20) POLLEN (Verified Allergy, Unknown, 04/02/20) aspirin (Verified Adverse Reaction, Intermediate, ITP, 04/02/20) ibuprofen (Verified Adverse Reaction, Intermediate, ITP, 04/03/20) PATIENT IS LIMITED TO 1+600MG OR LESS A DAY PER NEUROLOGY (DR Ken ZUNIGA) DAGO GAMEZ DO Apr 09, 2020 11:05
[2020-04-09] MEDS: ACETAMINOPHEN TAB 650MG DOSE (2X325MG) PO PRN (15:21)
[2020-04-09 18:27] VITALS: BP 118/68
[2020-04-09 20:33] VITALS: BP 118/68
[2020-04-09] MEDS: PROPRANOLOL 60 MG LA CAP PO SCH (20:33)
[2020-04-09] MEDS: AMITRIPTYLINE 10 MG TAB PO SCH (20:34)
[2020-04-09] MEDS: traZODone 50 MG TAB PO PRN (20:34)
[2020-04-10 06:32] VITALS: BP 142/84
[2020-04-10] MEDS: ESCITALOPRAM OXALATE 10 MG TAB (LEXAPRO) PO SCH (08:10)
[2020-04-10] MEDS: MONTELUKAST 10 MG TAB PO SCH (08:10)
[2020-04-10] MEDS: NICOTINE 21MG/24HR 1 EA TRANSDERMAL TD SCH (08:11)
[2020-04-10] MEDS: IBUPROFEN 800 MG TAB PO PRN (08:11)
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
[2020-04-10] MEDS ORDERED: NICO21PAT TD (10:25)
== END 2020-04-10 12:05 | disposition home or self-care (01) | DRG 752 ==
LOC: M ED 21:10 → M ED INP 04-03 15:01 → M PSY 04-03 16:10
PROVIDERS: ADMIT Psychiatry & Neurology Addiction Medicine; ATTEND Psychiatry & Neurology Addiction Medicine
DX: F60.2 Antisocial personality disorder (principal); F63.89 Other impulse disorders; J30.1 Allergic rhinitis due to pollen; F33.8 Other recurrent depressive disorders; E05.90 Thyrotoxicosis, unspecified without thyrotoxic crisis or storm; F17.290 Nicotine dependence, other tobacco product, uncomplicated; F10.159 Alcohol abuse with alcohol-induced psychotic disorder, unspecified; F12.10 Cannabis abuse, uncomplicated; F19.959 Other psychoactive substance use, unspecified with psychoactive substance-induced psychotic disorder, unspecified; Z79.899 Other long term (current) drug therapy; Z88.5 Allergy status to narcotic agent; Z88.6 Allergy status to analgesic agent

== ENCOUNTER 2020-04-14 12:26 | Inpatient (IN) | payer MEDICAID, OTHER ==
[~2020-04-14 12:26] MED LIST changes: -MONT10TA4 PO; +MONT5TAB2 PO; +MULTTAB20 PO; +NICO21PAT TD
[2020-04-14] MEDS ORDERED: LORazepam 2 MG/ML VIAL As Ordered ONE (12:53)
[2020-04-14] MEDS ORDERED: HALOPERIDOL 5MG/ML VIAL (J1630 PER 1) As Ordered ONE (12:53)
[2020-04-14] MEDS ORDERED: HALOPERIDOL 5MG/ML VIAL (J1630 PER 1) IM ONE (13:00)
[2020-04-14] MEDS ORDERED: LORazepam 2 MG/ML VIAL IM ONE (13:00)
[2020-04-14 13:24] LABS: HEMOGLOBIN 13.1 g/dl (12.0-15.5); MEAN CORPUSCULAR HEMOGLOBIN 29.4 pg (27.0-33.0); MEAN CORPUSCULAR HGB CONC 32.8 g/dl (32.0-36.5); MEAN CORPUSCULAR VOLUME 89.7 fl (80.0-96.0); PLATELET COUNT, AUTOMATED 333 10^3/uL (150-450); RED BLOOD COUNT 4.46 10^6/uL (4.00-5.40); WHITE BLOOD COUNT 11.8 10^3/uL (4.0-10.0)
[2020-04-14 13:47] LABS: HCG, SERUM QUALITATIVE NEGATIVE (NEGATIVE)
[2020-04-14 13:53] LABS: ACETAMINOPHEN LEVEL < 2.0 UG/ML (10.0-30.0); ALBUMIN 4.4 GM/DL (3.2-5.2); ALT/SGPT 24 U/L (12-78); BILIRUBIN,DIRECT 0.2 MG/DL (0.0-0.2); BILIRUBIN,TOTAL 0.7 MG/DL (0.2-1.0); BLOOD UREA NITROGEN 15 MG/DL (7-18); CALCIUM LEVEL 9.5 MG/DL (8.5-10.1); CARBON DIOXIDE LEVEL 25 MEQ/L (21-32); CHLORIDE LEVEL 110 MEQ/L (98-107); CREATININE FOR GFR 0.83 MG/DL (0.55-1.30); ETHYL ALCOHOL (ETHANOL) < 0.003 % (0.000-0.010); GLOMERULAR FILTRATION RATE > 60.0 (>60); GLUCOSE, FASTING 93 MG/DL (70-100); POTASSIUM SERUM 3.5 MEQ/L (3.5-5.1); SALICYLATE LEVEL 5.3 MG/DL (5.0-30.0); SODIUM LEVEL 143 MEQ/L (136-145); THYROID STIMULATING HORMONE 0.287 uIU/ML (0.358-3.740); TOTAL PROTEIN 7.7 GM/DL (6.4-8.2)
[2020-04-14] MEDS ORDERED: MOM 30ML SUSPENSION UDC PO PRN (15:15)
[2020-04-14] MEDS ORDERED: MAALOX 30 ML SUSP *UDC PO PRN (15:15)
[2020-04-14 15:35] LABS: AMPHETAMINES LEVEL URINE NEGATIVE (NEGATIVE); BARBITURATES URINE NEGATIVE (NEGATIVE); BENZODIAZEPINES URINE NEGATIVE (NEGATIVE); CANNABINOIDS URINE POSITIVE (NEGATIVE); COCAINE METABOLITE URINE NEGATIVE (NEGATIVE); METHADONE URINE NEGATIVE (NEGATIVE); OPIATES URINE NEGATIVE (NEGATIVE); PHENCYCLIDINE URINE NEGATIVE (NEGATIVE)
[2020-04-14] MEDS: PROPRANOLOL 60 MG LA CAP PO SCH (21:00)
[2020-04-14] MEDS: AMITRIPTYLINE 10 MG TAB PO SCH (21:00)
[2020-04-14] MEDS ORDERED: FLUTICASONE PROP 0.05% NASAL SPRAY 16 GM (FLONASE) NARES PRN (22:00)
[2020-04-15] MEDS ORDERED: LORazepam 2 MG/ML VIAL IM STA (05:54)
[2020-04-15] MEDS ORDERED: HALOPERIDOL 5MG/ML VIAL (J1630 PER 1) IM STA (05:54)
[2020-04-15 06:30] VITALS: BP 154/94
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
[2020-04-15 06:45] VITALS: BP 139/67
[2020-04-15 07:00] VITALS: BP 119/66
[2020-04-15] MEDS: hydrOXYzine 50 MG TAB PO PRN ×2 (09:16→16:39)
[2020-04-15] MEDS: MONTELUKAST 10 MG TAB PO SCH (09:18)
[2020-04-15 10:10] LABS: FREE THYROXINE INDEX 4.5 % (1.3-4.8); THYROID STIMULATING HORMONE 0.161 uIU/ML (0.358-3.740); THYROXINE (T4) 11.9 UG/DL (4.5-12.0)
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
[2020-04-15] MEDS ORDERED: BENZTROPINE 0.5 MG TAB PO ONE (12:00)
[2020-04-15] MEDS: NICOTINE 14 MG/24 HR TRANSDERMAL TD SCH (12:06)
[2020-04-15] MEDS: ACETAMINOPHEN TAB 650MG DOSE (2X325MG) PO PRN (16:38)
[2020-04-15 16:51] VITALS: BP 131/71
[2020-04-15] MEDS: AMITRIPTYLINE 10 MG TAB PO SCH (20:35)
[2020-04-15] MEDS: OLANZapine ORAL DISINTEGRATING TAB 5MG PO PRN (20:35)
[2020-04-15] MEDS: PROPRANOLOL 60 MG LA CAP PO SCH (20:36)
[2020-04-16] MEDS: ACETAMINOPHEN TAB 650MG DOSE (2X325MG) PO PRN (06:29)
[2020-04-16 07:00] VITALS: BP 127/66
[2020-04-16] MEDS: hydrOXYzine 50 MG TAB PO PRN ×3 (08:52→21:02)
[2020-04-16] MEDS: MONTELUKAST 10 MG TAB PO SCH (08:52)
[2020-04-16] MEDS: NICOTINE 14 MG/24 HR TRANSDERMAL TD SCH (08:53)
[2020-04-16] MEDS ORDERED: IBUPROFEN 600MG TAB PO PRN (10:45)
--- NOTE | 2020-04-16 11:16 | MHIPNPDOC ---
[facility] Progress Note Progress Note DATE OF SERVICE: 04/16/20 Subjective HPI: The patient was met with today. She's quite pressured in speech, tangential, talking variously about her thyroid, and bipolar disorder and jumps from topic to topic. Little is gained in the discussion other than she's willing to take Latuda. Objective Appearance: Hygiene fair. Affect: Flat. Speech: Pressured speech. Thought Form: Associations are loosened. Tangential. Thought Content: Denies homicidal or suicidal ideations. Judgement: Poor. Insight: Poor. Assessment F31.89 Other bipolar disorder F12.959 Cannabis use, unspecified with psychotic disorder, unspecified Plan Plan is to start Latuda 20 mg nightly. Will likely need a more powerful mood stabilizer. Will attempt to remove the Amitriptyline and Lexapro as this could be contributing to her presentation although synthetic marijuana use is far more likely. Vital Signs Vital Signs Date Time Temp Pulse Resp B/P (MAP) Pulse Ox O2 Delivery O2 Flow Rate FiO2 04/16/20 08:19 Room Air 04/16/20 07:00 96.9 82 16 127/66 (86) 99 Current Medications Current Medications Medications (Trade) Dose Ordered Sig/Sima Route PRN Reason Start Time Stop Time Status Last Admin Dose Admin Acetaminophen (Tylenol Tab) 650 mg Q6HP PRN PO HEADACHE or DISCOMFORT 04/14/20 15:15 04/16/20 06:29 Al Hydrox/Mg Hydrox/Simethicone (Mylanta) 30 ml Q4HP PRN PO HEARTBURN/INDIGESTION 04/14/20 15:15 Amitriptyline HCl (Elavil) 20 mg QHS PO 04/14/20 21:00 04/15/20 20:35 Fluticasone Propionate (Flonase 0.05% Nasal [place]) 1 spray BIDP PRN NARES CONGESTION 04/14/20 22:00 Haloperidol (Haldol) 5 mg STAT STAT IM 04/15/20 05:54 04/15/20 05:56 DC 04/15/20 06:01 Home Med (Med Rec Complete!) ASDIRECTED XX 04/14/20 20:30 04/14/20 20:30 DC Hydroxyzine HCl (Atarax) 50 mg BIDP PRN PO ANXIETY/AGITATION 04/14/20 22:00 04/16/20 08:52 Ibuprofen (Advil) 600 mg Q6HP PRN PO MODERATE PAIN (PS 5-7) 04/16/20 10:45 UNV Lorazepam (Ativan) 1 mg STAT STAT IM 04/15/20 05:54 04/15/20 05:56 DC 04/15/20 06:01 Magnesium Hydroxide (Milk Of Magnesia) 30 ml DAILYPRN PRN PO CONSTIPATION 04/14/20 15:15 Montelukast Sodium (Singulair) 10 mg DAILY PO 04/15/20 09:00 04/16/20 08:52 Nicotine (Nicoderm Cq 14mg) 1 patch DAILY TD 04/15/20 09:00 04/16/20 08:53 Olanzapine (ZyPREXA ZYDIS) 10 mg Q4HP PRN PO AGITATION 04/14/20 15:15 04/15/20 20:35 Propranolol HCl (Inderal La) 60 mg QHS PO 04/14/20 21:00 04/15/20 20:36 Trazodone HCl (Desyrel) 50 mg QHSP PRN PO INSOMNIA 04/14/20 15:15 Allergies Coded Allergies: codeine (Verified Allergy, Intermediate, HIVES, 04/02/20) hydrocodone (Verified Allergy, Intermediate, HIVES ITCHING, 04/02/20) latex (Verified Allergy, Intermediate, HIVES ITCHING, 04/02/20) Dust (Verified Allergy, Unknown, 04/02/20) POLLEN (Verified Allergy, Unknown, 04/02/20) aspirin (Verified Adverse Reaction, Intermediate, ITP, 04/02/20) ibuprofen (Verified Adverse Reaction, Intermediate, ITP, 04/03/20) PATIENT IS LIMITED TO 1+600MG OR LESS A DAY PER NEUROLOGY (DAGO BO DO Apr 16, 2020 11:16
[2020-04-16] MEDS: IBUPROFEN 600MG TAB PO PRN (11:59)
[2020-04-16] MEDS: OLANZapine ORAL DISINTEGRATING TAB 5MG PO PRN (12:00)
[2020-04-16 17:32] VITALS: BP 139/72
[2020-04-16] MEDS ORDERED: LURASIDONE 20 MG TAB (LATUDA) PO SCH (18:00)
[2020-04-16] MEDS: PROPRANOLOL 60 MG LA CAP PO SCH (21:04)
[2020-04-16] MEDS: AMITRIPTYLINE 10 MG TAB PO SCH (21:04)
[2020-04-17 06:52] VITALS: BP 123/76
[2020-04-17] MEDS: hydrOXYzine 50 MG TAB PO PRN ×3 (07:22→20:00)
[2020-04-17] MEDS: NICOTINE 14 MG/24 HR TRANSDERMAL TD SCH (08:09)
[2020-04-17] MEDS: IBUPROFEN 600MG TAB PO PRN (08:10)
[2020-04-17] MEDS: MONTELUKAST 10 MG TAB PO SCH (08:10)
--- NOTE | 2020-04-17 10:17 | MHIPNPDOC ---
[facility] Progress Note Progress Note DATE OF SERVICE: 04/17/20 Subjective HPI: Kimberley presents today for a check up. Patient remains quite hyper verbal. She reports that she wants to reengage with the court hearing as she had redacted it earlier. Otherwise, has remained unengaged and easily agitated. She continues to focus on her thyroid and perseverate greatly on this. Objective Mood: Agitate. Labile. Speech: Pressured. Preseverative. Thought Form: Tangential. Judgement: Poor. Insight: Poor. Assessment F29 Unspecified psychosis not due to a substance or known physiological conditio n F12.29 Cannabis dependence with unspecified cannabis-induced disorder Plan Increase Latuda to 40 mg. Feel comfortable taking patient for retention as she had quite a significant amount of agitation as still quite pressured in and having difficulty. Vital Signs Vital Signs Date Time Temp Pulse Resp B/P (MAP) Pulse Ox O2 Delivery O2 Flow Rate FiO2 04/17/20 06:52 99.0 84 16 123/76 (92) 99 Room Air Current Medications Current Medications Medications (Trade) Dose Ordered Sig/Sima Route PRN Reason Start Time Stop Time Status Last Admin Dose Admin Acetaminophen (Tylenol Tab) 650 mg Q6HP PRN PO HEADACHE or DISCOMFORT 04/14/20 15:15 04/16/20 06:29 Al Hydrox/Mg Hydrox/Simethicone (Mylanta) 30 ml Q4HP PRN PO HEARTBURN/INDIGESTION 04/14/20 15:15 Amitriptyline HCl (Elavil) 20 mg QHS PO 04/14/20 21:00 04/16/20 21:04 Fluticasone Propionate (Flonase 0.05% Nasal [place]) 1 spray BIDP PRN NARES CONGESTION 04/14/20 22:00 Haloperidol (Haldol) 5 mg STAT STAT IM 04/15/20 05:54 04/15/20 05:56 DC 04/15/20 06:01 Home Med (Med Rec Complete!) ASDIRECTED XX 04/14/20 20:30 04/14/20 20:30 DC Hydroxyzine HCl (Atarax) 50 mg BIDP PRN PO ANXIETY/AGITATION 04/14/20 22:00 04/16/20 13:25 DC 04/16/20 08:52 Hydroxyzine HCl (Atarax) 50 mg Q4H PRN PO ANXIETY/AGITATION 04/16/20 13:30 04/17/20 07:22 Ibuprofen (Advil) 600 mg DAILY PRN PO HEADACHE 04/16/20 11:30 04/17/20 08:10 Ibuprofen (Advil) 600 mg Q6HP PRN PO MODERATE PAIN (PS 5-7) 04/16/20 10:45 UNV Lorazepam (Ativan) 1 mg STAT STAT IM 04/15/20 05:54 04/15/20 05:56 DC 04/15/20 06:01 Lurasidone HCl (Latuda) 20 mg DAILY@18 PO 04/16/20 18:00 04/16/20 17:04 Magnesium Hydroxide (Milk Of Magnesia) 30 ml DAILYPRN PRN PO CONSTIPATION 04/14/20 15:15 Montelukast Sodium (Singulair) 10 mg DAILY PO 04/15/20 09:00 04/17/20 08:10 Nicotine (Nicoderm Cq 14mg) 1 patch DAILY TD 04/15/20 09:00 04/17/20 08:09 Olanzapine (ZyPREXA ZYDIS) 10 mg Q4HP PRN PO AGITATION 04/14/20 15:15 04/16/20 12:00 Propranolol HCl (Inderal La) 60 mg QHS PO 04/14/20 21:00 04/16/20 21:04 Trazodone HCl (Desyrel) 50 mg QHSP PRN PO INSOMNIA 04/14/20 15:15 Allergies Coded Allergies: codeine (Verified Allergy, Intermediate, HIVES, 04/02/20) hydrocodone (Verified Allergy, Intermediate, HIVES ITCHING, 04/02/20) latex (Verified Allergy, Intermediate, HIVES ITCHING, 04/02/20) Dust (Verified Allergy, Unknown, 04/02/20) POLLEN (Verified Allergy, Unknown, 04/02/20) aspirin (Verified Adverse Reaction, Intermediate, ITP, 04/02/20) ibuprofen (Verified Adverse Reaction, Intermediate, ITP, 04/03/20) PATIENT IS LIMITED TO 1+600MG OR LESS A DAY PER NEUROLOGY (DAGO BO DO Apr 17, 2020 10:17
[2020-04-17] MEDS: ACETAMINOPHEN TAB 650MG DOSE (2X325MG) PO PRN (11:16)
[2020-04-17 16:13] VITALS: BP 135/61
[2020-04-17] MEDS: LURASIDONE 20 MG TAB (LATUDA) PO SCH (17:55)
[2020-04-17] MEDS: AMITRIPTYLINE 10 MG TAB PO SCH (20:00)
[2020-04-17] MEDS: PROPRANOLOL 60 MG LA CAP PO SCH (20:00)
[2020-04-17] MEDS: PRAZOSIN 1 MG CAP PO SCH (20:00)
[2020-04-18] MEDS: IBUPROFEN 600MG TAB PO PRN (05:57)
[2020-04-18 06:44] VITALS: BP 130/83
[2020-04-18 06:46] VITALS: BP 130/83
[2020-04-18] MEDS: ACETAMINOPHEN TAB 650MG DOSE (2X325MG) PO PRN ×2 (08:46→16:39)
[2020-04-18] MEDS: MONTELUKAST 10 MG TAB PO SCH (08:46)
[2020-04-18] MEDS: hydrOXYzine 50 MG TAB PO PRN ×2 (08:46→16:39)
[2020-04-18] MEDS: NICOTINE 14 MG/24 HR TRANSDERMAL TD SCH (08:46)
[2020-04-18 16:32] VITALS: BP 133/63
[2020-04-18] MEDS: LURASIDONE 20 MG TAB (LATUDA) PO SCH (17:42)
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
[2020-04-18] MEDS: PROPRANOLOL 60 MG LA CAP PO SCH (20:17)
[2020-04-18] MEDS: AMITRIPTYLINE 10 MG TAB PO SCH (20:17)
[2020-04-18] MEDS: PRAZOSIN 1 MG CAP PO SCH (20:17)
[2020-04-19] MEDS: IBUPROFEN 600MG TAB PO PRN (04:56)
[2020-04-19 06:18] VITALS: BP 146/79
[2020-04-19] MEDS: hydrOXYzine 50 MG TAB PO PRN ×3 (07:50→17:49)
[2020-04-19] MEDS: MONTELUKAST 10 MG TAB PO SCH (09:30)
[2020-04-19] MEDS: ACETAMINOPHEN TAB 650MG DOSE (2X325MG) PO PRN (09:30)
[2020-04-19] MEDS: NICOTINE 14 MG/24 HR TRANSDERMAL TD SCH (09:30)
[2020-04-19] MEDS: LITHIUM CARBONATE 150 MG CAP PO SCH ×2 (14:02→21:40)
--- NOTE | 2020-04-19 14:51 | MHIPNPDOC ---
[facility] Progress Note Progress Note DATE OF SERVICE: 04/19/20 The patient was very agitated today, she kept swearing and ws very loud, walking the hallways, complaining about treatment, not willing to take her medications but her Nurse, Charlene Pina was able to talk to her about those medications and she said she would take [place] instead of latuda. I have discontinued Latuda and started [place] 150 mgs PO BID. Vital Signs Vital Signs Date Time Temp Pulse Resp B/P (MAP) Pulse Ox O2 Delivery O2 Flow Rate FiO2 04/19/20 08:22 Room Air 04/19/20 06:18 98.4 77 18 146/79 (101) 100 Current Medications Current Medications Medications (Trade) Dose Ordered Sig/Sima Route PRN Reason Start Time Stop Time Status Last Admin Dose Admin Acetaminophen (Tylenol Tab) 650 mg Q6HP PRN PO HEADACHE or DISCOMFORT 04/14/20 15:15 04/19/20 09:30 Al Hydrox/Mg Hydrox/Simethicone (Mylanta) 30 ml Q4HP PRN PO HEARTBURN/INDIGESTION 04/14/20 15:15 Amitriptyline HCl (Elavil) 20 mg QHS PO 04/14/20 21:00 04/18/20 20:17 Fluticasone Propionate (Flonase 0.05% Nasal [place]) 1 spray BIDP PRN NARES CONGESTION 04/14/20 22:00 Haloperidol (Haldol) 5 mg STAT STAT IM 04/15/20 05:54 04/15/20 05:56 DC 04/15/20 06:01 Home Med (Med Rec Complete!) ASDIRECTED XX 04/14/20 20:30 04/14/20 20:30 DC Hydroxyzine HCl (Atarax) 50 mg BIDP PRN PO ANXIETY/AGITATION 04/14/20 22:00 04/16/20 13:25 DC 04/16/20 08:52 Hydroxyzine HCl (Atarax) 50 mg Q4H PRN PO ANXIETY/AGITATION 04/16/20 13:30 04/19/20 12:15 Ibuprofen (Advil) 600 mg DAILY PRN PO HEADACHE 04/16/20 11:30 04/19/20 04:56 Ibuprofen (Advil) 600 mg Q6HP PRN PO MODERATE PAIN (PS 5-7) 04/16/20 10:45 UNV [place] Carbonate ([place] Carbonate) 150 mg BID PO 04/19/20 09:00 04/19/20 14:02 Lorazepam (Ativan) 1 mg STAT STAT IM 04/15/20 05:54 04/15/20 05:56 DC 04/15/20 06:01 Lurasidone HCl (Latuda) 20 mg DAILY@18 PO 04/16/20 18:00 04/17/20 11:58 DC 04/16/20 17:04 Lurasidone HCl (Latuda) 40 mg DAILY@18 PO 04/17/20 18:00 04/19/20 13:07 DC 04/17/20 17:55 Magnesium Hydroxide (Milk Of Magnesia) 30 ml DAILYPRN PRN PO CONSTIPATION 04/14/20 15:15 Montelukast Sodium (Singulair) 10 mg DAILY PO 04/15/20 09:00 04/19/20 09:30 Nicotine (Nicoderm Cq 14mg) 1 patch DAILY TD 04/15/20 09:00 04/19/20 09:30 Olanzapine (ZyPREXA ZYDIS) 10 mg Q4HP PRN PO AGITATION 04/14/20 15:15 04/16/20 12:00 Prazosin HCl (Minipress) 1 mg QHS PO 04/17/20 21:00 04/17/20 20:00 Propranolol HCl (Inderal La) 60 mg QHS PO 04/14/20 21:00 04/18/20 20:17 Trazodone HCl (Desyrel) 50 mg QHSP PRN PO INSOMNIA 04/14/20 15:15 Allergies Coded Allergies: codeine (Verified Allergy, Intermediate, HIVES, 04/02/20) hydrocodone (Verified Allergy, Intermediate, HIVES ITCHING, 04/02/20) latex (Verified Allergy, Intermediate, HIVES ITCHING, 04/02/20) Dust (Verified Allergy, Unknown, 04/02/20) POLLEN (Verified Allergy, Unknown, 04/02/20) aspirin (Verified Adverse Reaction, Intermediate, ITP, 04/02/20) ibuprofen (Verified Adverse Reaction, Intermediate, ITP, 04/03/20) PATIENT IS LIMITED TO 1+600MG OR LESS A DAY PER NEUROLOGY (MERLYN DEAN MD Apr 19, 2020 14:37
[2020-04-19 16:38] VITALS: BP 141/72
[2020-04-19] MEDS: PRAZOSIN 1 MG CAP PO SCH ×2 (21:00→22:24)
[2020-04-19] MEDS: AMITRIPTYLINE 10 MG TAB PO SCH (21:40)
[2020-04-19] MEDS: PROPRANOLOL 60 MG LA CAP PO SCH (21:40)
[2020-04-20] MEDS: NICOTINE 14 MG/24 HR TRANSDERMAL TD SCH (08:04)
[2020-04-20] MEDS: MONTELUKAST 10 MG TAB PO SCH (08:05)
[2020-04-20] MEDS: LITHIUM CARBONATE 150 MG CAP PO SCH (08:05)
[2020-04-20] MEDS: hydrOXYzine 50 MG TAB PO PRN ×2 (08:06→12:10)
[2020-04-20] MEDS: IBUPROFEN 600MG TAB PO PRN (08:06)
[2020-04-20] MEDS: ACETAMINOPHEN TAB 650MG DOSE (2X325MG) PO PRN (09:51)
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
[2020-04-20] MEDS: OLANZapine ORAL DISINTEGRATING TAB 5MG PO PRN (13:39)
[2020-04-20] MEDS ORDERED: LORazepam 2 MG/ML VIAL IM STA (13:52)
[2020-04-20] MEDS ORDERED: HALOPERIDOL 5MG/ML VIAL (J1630 PER 1) IM STA (13:52)
[2020-04-20] MEDS ORDERED: diphenhydrAMINE 50MG/ML VIAL (J1200) IM STA (13:52)
[2020-04-20] MEDS ORDERED: HALOPERIDOL 5MG/ML VIAL (J1630 PER 1) As Ordered ONE ×2 (13:54→13:55)
[2020-04-20] MEDS ORDERED: diphenhydrAMINE 50MG/ML VIAL (J1200) As Ordered ONE (13:54)
[2020-04-20] MEDS ORDERED: LORazepam 2 MG/ML VIAL As Ordered ONE (13:55)
[2020-04-20] MEDS: PROPRANOLOL 60 MG LA CAP PO SCH (23:58)
[2020-04-20] MEDS: PRAZOSIN 1 MG CAP PO SCH (23:58)
[2020-04-21 06:47] VITALS: BP 126/60
[2020-04-21] MEDS: MONTELUKAST 10 MG TAB PO SCH (08:18)
[2020-04-21] MEDS: LITHIUM CARBONATE 150 MG CAP PO SCH (08:19)
[2020-04-21] MEDS: NICOTINE 14 MG/24 HR TRANSDERMAL TD SCH (08:19)
[2020-04-21] MEDS: IBUPROFEN 600MG TAB PO PRN (08:20)
[2020-04-21] MEDS: OLANZapine ORAL DISINTEGRATING TAB 5MG PO PRN ×2 (09:10→18:08)
--- NOTE | 2020-04-21 12:45 | CR.PDOC ---
General Date of Consultation: Apr 21, 2020 Consultation REASON FOR CONSULTATION/CHIEF COMPLAINT: vaginal discharge HISTORY OF PRESENT ILLNESS: 34F admitted to [facility] for layla complains of two day history of malodorous discharge. History goes back to a few weeks ago where she states she was diagnosed with bacterial vaginosis, and prescribed Macrobid and Metronidazole. She states she only took 1-2 days of her medications. She notes she recently had a baby, six months ago. She also states the was unexpected as she had a prior tubal ligation. She states she does intend to breast feed, and does not wish to have any more pregnancies. She states she had a second tubal ligation and is receiving control medication. She denies any other medical complaints - denies chest pain, shortness of breath, headaches, N/V/D, abdominal pain. ALLERGIES: Please see below. HOME MEDICATIONS: Please see below. PAST MEDICAL HISTORY: #thyroid disease - unspecified #psych - bipolar #ITP #migraine headaches Past Surgical History: #tubal ligation x2 #C section x 4 #tonsillectomy REVIEW OF SYSTEMS: Negative except as per HPI. PHYSICAL EXAMINATION: VITAL SIGNS: Please see below. GENERAL: NAD, sitting comfortably in chair, anxious HEENT: NC/AT, EOMI Lungs: CTA B/L Heart: +S1S2, RRR Abd: soft, NT, +BS Ext: no edema LABORATORY DATA: Please see below. ASSESSMENT/PLAN: 34F admitted to [facility] for layla, hospitalist consulted for malodorous vaginal discharge #vaginal discharge - discussed with her drencher dr cameron - will review records to determine plan of care - STI panel pending Thank you for this consultation. We will continue to follow with filter washer. Vital Signs/I&O Vital Signs Date Time Temp Pulse Resp B/P (MAP) Pulse Ox O2 Delivery O2 Flow Rate FiO2 04/21/20 06:47 98.6 87 17 126/60 (82) 04/19/20 08:22 Room Air 04/19/20 06:18 100 Allergies Coded Allergies: codeine (Verified Allergy, Intermediate, HIVES, 04/02/20) hydrocodone (Verified Allergy, Intermediate, HIVES ITCHING, 04/02/20) latex (Verified Allergy, Intermediate, HIVES ITCHING, 04/02/20) Dust (Verified Allergy, Unknown, 04/02/20) POLLEN (Verified Allergy, Unknown, 04/02/20) aspirin (Verified Adverse Reaction, Intermediate, ITP, 04/02/20) ibuprofen (Verified Adverse Reaction, Intermediate, ITP, 04/03/20) PATIENT IS LIMITED TO 1+600MG OR LESS A DAY PER NEUROLOGY (DR Ken ZUNIGA) Home Medications Scheduled Amitriptyline HCl (Amitriptyline HCl) 10 Mg Tablet, 20 MG PO QHS, (Reported) Ergocalciferol (Vitamin D2) (Vitamin D2) 50,000 Units Cap, 50,000 UNITS PO Q2WK, (Reported) Escitalopram Oxalate (Escitalopram Oxalate) 10 Mg Tablet, 10 MG PO DAILY, (Reported) Montelukast Sodium (Montelukast Sodium) 10 Mg Tablet, 10 MG PO DAILY, (Reported) No122/Iron/Folic Acid ( Multi Tablet) 1 Each Tablet, 1 TAB PO DAILY, (Reported) Propranolol HCl (Propranolol HCl ER) 60 Mg Cap.sa.24h, 60 MG PO QHS, (Reported) Scheduled PRN Fluticasone Propionate (Fluticasone Propionate) 16 Gm [place].susp, 1 SPRAY NARES BID PRN for CONGESTION, (Reported) Sumatriptan Succinate (Sumatriptan Succinate) 4 Mg/0.5 Ml Pen.injctr, 0.5 ML DAILY PRN for MIGRAINE, (Reported) CRISTIAN RAMIREZ MD Apr 21, 2020 12:45
[2020-04-21 14:35] LABS: CHLAMYDIA DNA AMPLIFICATION NEGATIVE (NEGATIVE); GC DNA AMPLIFICATION NEGATIVE (NEGATIVE)
[2020-04-21] MEDS: hydrOXYzine 50 MG TAB PO PRN ×2 (15:09→20:05)
[2020-04-21] MEDS: ACETAMINOPHEN TAB 650MG DOSE (2X325MG) PO PRN (16:20)
[2020-04-21] MEDS: PROPRANOLOL 60 MG LA CAP PO SCH (20:04)
[2020-04-21] MEDS: PRAZOSIN 1 MG CAP PO SCH (20:04)
[2020-04-22 06:44] VITALS: BP 112/71
[2020-04-22] MEDS: NICOTINE 14 MG/24 HR TRANSDERMAL TD SCH (08:10)
[2020-04-22] MEDS: LITHIUM CARBONATE 150 MG CAP PO SCH (08:11)
[2020-04-22] MEDS: MONTELUKAST 10 MG TAB PO SCH (08:11)
[2020-04-22] MEDS: hydrOXYzine 50 MG TAB PO PRN ×2 (08:11→13:42)
[2020-04-22] MEDS: IBUPROFEN 600MG TAB PO PRN (08:12)
[2020-04-22] MEDS: ACETAMINOPHEN TAB 650MG DOSE (2X325MG) PO PRN ×2 (09:58→19:51)
--- NOTE | 2020-04-22 10:38 | MHIPN ---
DATE: 04/21/2020 VITAL SIGNS: Blood pressure 166/60, pulse 87, temperature 98.6. CHIEF COMPLAINT: Says feels good. SUBJECTIVE: Seen for follow-up. I am seeing her today as her doctor is away today, Dr. Gomez. She says she has been doing well, and that she slept well last night, feels more rested. Affect is good. MENTAL STATUS EXAMINATION: She is neat. She is cooperative. There is no agitation. No psychomotor retardation. She is coherent. Affect is reactive, fair range. She denies any thoughts of harming herself or anyone else. At present, there is no evidence of any psychosis. Cognition is grossly intact. Judgment and insight remain somewhat compromised. ASSESSMENT: Bipolar disorder, most recent episode manic. PLAN: Continue current care, observation. She is awaiting court hearing, for discharge, has not been given a date yet. Meanwhile, continue with current care. She will be seeing the assigned clinician tomorrow. LOLY
[2020-04-22 18:00] VITALS: BP 129/64
[2020-04-22] MEDS: traZODone 50 MG TAB PO PRN (19:51)
[2020-04-22] MEDS: PRAZOSIN 1 MG CAP PO SCH (19:51)
[2020-04-22] MEDS: PROPRANOLOL 60 MG LA CAP PO SCH (19:51)
[2020-04-23 06:39] VITALS: BP 142/83
[2020-04-23] MEDS: NICOTINE 14 MG/24 HR TRANSDERMAL TD SCH (08:19)
[2020-04-23] MEDS: MONTELUKAST 10 MG TAB PO SCH (08:19)
[2020-04-23] MEDS: LITHIUM CARBONATE 150 MG CAP PO SCH (08:20)
[2020-04-23] MEDS: hydrOXYzine 50 MG TAB PO PRN ×2 (08:20→13:58)
[2020-04-23] MEDS: IBUPROFEN 600MG TAB PO PRN (08:24)
--- NOTE | 2020-04-23 10:32 | MHIPNPDOC ---
[facility] Progress Note Progress Note DATE OF SERVICE: 04/23/20 Subjective HPI: The patient was met with today for her hearing. She reports that she's feeling somewhat better on the lithium. She does want increased to 500 mg. We don't have the availability for 500 to 600. She's generally more cooperative during the hearing. She presents fairly well, but ultimately, it was decided that she would be retained. The patient after the hearing this was fairly upset; yelling obsce nities saying that she should just kill herself and was quite upset screaming at unseen others. Objective Thought Form: Generally logical. Associations appear better intact. Linear and goal directed. Thought Content: She has less gradiose ideation today. Denies suicidal and homocidal ideation. Denies auditory and visual hallucinations. Perception: Poor to fair. Judgement: Poor to fair. Assessment F31.89 Other bipolar disorder F12.159 Cannabis abuse with psychotic disorder, unspecified F60.2 Antisocial personality disorder F43.12 Post-traumatic stress disorder, chronic Plan Increase lithium to 600 mg daily as she reportedly will take 500, but we do not have them available. She's currently retained will likely need to convert to 2 PC. Vital Signs Vital Signs Date Time Temp Pulse Resp B/P (MAP) Pulse Ox O2 Delivery O2 Flow Rate FiO2 04/23/20 06:39 99.4 85 18 142/83 (102) Room Air 04/22/20 06:44 99 Current Medications Current Medications Medications (Trade) Dose Ordered Sig/Sima Route PRN Reason Start Time Stop Time Status Last Admin Dose Admin Acetaminophen (Tylenol Tab) 650 mg Q6HP PRN PO HEADACHE or DISCOMFORT 04/14/20 15:15 04/22/20 19:51 Al Hydrox/Mg Hydrox/Simethicone (Mylanta) 30 ml Q4HP PRN PO HEARTBURN/INDIGESTION 04/14/20 15:15 Amitriptyline HCl (Elavil) 20 mg QHS PO 04/14/20 21:00 04/20/20 12:27 DC 04/19/20 21:40 Diphenhydramine HCl (Benadryl) 50 mg STAT STAT IM 04/20/20 13:52 04/20/20 13:57 DC 04/20/20 14:03 Fluticasone Propionate (Flonase 0.05% Nasal [place]) 1 spray BIDP PRN NARES CONGESTION 04/14/20 22:00 Haloperidol (Haldol) 5 mg STAT STAT IM 04/15/20 05:54 04/15/20 05:56 DC 04/15/20 06:01 Haloperidol (Haldol) 10 mg STAT STAT IM 04/20/20 13:52 04/20/20 13:57 DC 04/20/20 14:03 Home Med (Med Rec Complete!) ASDIRECTED XX 04/14/20 20:30 04/14/20 20:30 DC Hydroxyzine HCl (Atarax) 50 mg BIDP PRN PO ANXIETY/AGITATION 04/14/20 22:00 04/16/20 13:25 DC 04/16/20 08:52 Hydroxyzine HCl (Atarax) 50 mg Q4H PRN PO ANXIETY/AGITATION 04/16/20 13:30 04/23/20 08:20 Ibuprofen (Advil) 600 mg DAILY PRN PO HEADACHE 04/16/20 11:30 04/23/20 08:24 Ibuprofen (Advil) 600 mg Q6HP PRN PO MODERATE PAIN (PS 5-7) 04/16/20 10:45 UNV [place] Carbonate ([place] Carbonate) 150 mg BID PO 04/19/20 09:00 04/20/20 12:27 DC 04/20/20 08:05 [place] Carbonate ([place] Carbonate) 300 mg QAM PO 04/21/20 09:00 04/23/20 08:20 Lorazepam (Ativan) 1 mg STAT STAT IM 04/15/20 05:54 04/15/20 05:56 DC 04/15/20 06:01 Lorazepam (Ativan) 2 mg STAT STAT IM 04/20/20 13:52 04/20/20 13:57 DC 04/20/20 14:03 Lurasidone HCl (Latuda) 20 mg DAILY@18 PO 04/16/20 18:00 04/17/20 11:58 DC 04/16/20 17:04 Lurasidone HCl (Latuda) 40 mg DAILY@18 PO 04/17/20 18:00 04/19/20 13:07 DC 04/17/20 17:55 Magnesium Hydroxide (Milk Of Magnesia) 30 ml DAILYPRN PRN PO CONSTIPATION 04/14/20 15:15 Montelukast Sodium (Singulair) 10 mg DAILY PO 04/15/20 09:00 04/23/20 08:19 Nicotine (Nicoderm Cq 14mg) 1 patch DAILY TD 04/15/20 09:00 04/23/20 08:19 Olanzapine (ZyPREXA ZYDIS) 10 mg Q4HP PRN PO AGITATION 04/14/20 15:15 04/21/20 18:08 Prazosin HCl (Minipress) 1 mg QHS PO 04/17/20 21:00 04/22/20 19:51 Propranolol HCl (Inderal La) 60 mg QHS PO 04/14/20 21:00 04/22/20 19:51 Trazodone HCl (Desyrel) 50 mg QHSP PRN PO INSOMNIA 04/14/20 15:15 04/22/20 19:51 Allergies Coded Allergies: codeine (Verified Allergy, Intermediate, HIVES, 04/02/20) hydrocodone (Verified Allergy, Intermediate, HIVES ITCHING, 04/02/20) latex (Verified Allergy, Intermediate, HIVES ITCHING, 04/02/20) Dust (Verified Allergy, Unknown, 04/02/20) POLLEN (Verified Allergy, Unknown, 04/02/20) aspirin (Verified Adverse Reaction, Intermediate, ITP, 04/02/20) ibuprofen (Verified Adverse Reaction, Intermediate, ITP, 04/03/20) PATIENT IS LIMITED TO 1+600MG OR LESS A DAY PER NEUROLOGY (DR Ken ZUNIGA) DAGO GAMEZ DO Apr 23, 2020 10:32
[2020-04-23] MEDS: ACETAMINOPHEN TAB 650MG DOSE (2X325MG) PO PRN ×2 (13:59→20:19)
[2020-04-23] MEDS: PROPRANOLOL 60 MG LA CAP PO SCH (20:18)
[2020-04-23] MEDS: traZODone 50 MG TAB PO PRN (20:18)
[2020-04-23] MEDS: PRAZOSIN 1 MG CAP PO SCH (20:18)
[2020-04-24 06:38] VITALS: BP 138/59
[2020-04-24] MEDS: LITHIUM CARBONATE 600 MG CAP PO SCH (08:06)
[2020-04-24] MEDS: MONTELUKAST 10 MG TAB PO SCH (08:06)
[2020-04-24] MEDS: NICOTINE 14 MG/24 HR TRANSDERMAL TD SCH (08:07)
[2020-04-24] MEDS: IBUPROFEN 600MG TAB PO PRN (08:07)
[2020-04-24] MEDS ORDERED: LITHIUM CARBONATE 150 MG CAP PO SCH (09:00)
--- NOTE | 2020-04-24 09:51 | MHIPNPDOC ---
[facility] Progress Note Progress Note DATE OF SERVICE: 04/24/20 Subjective Copy HPI: Kimberley presents today for a follow up. She is upset about being detained and speaks at length to this provider as well as her nurse and was also several for roughly 15-20 minutes straight with little interruptions. Patient still has quite pressured speech repeating her story excessively. She was quite agitated yesterday when she had been detained and was somewhat more threatening than she has been prior. Patient continues to report a migraine but is amenable to taking the [place]. Otherwise, the majority of the interview is her spewing various things about her treatment in the past and literally repeating the same story. Objective Copy Appearance: Fair hygiene. Behavior: Intense eye contact. Affect: Irritable. Labile. Speech: Pressured. Hyperverbal. Motor: Some psychomotor agitation. Cognition: Impaired secondary to thought process. Thought Form: Tangential. Thought Content: Denies auditory or visual hallucinations. Angry thoughts time to time. Reports suicidal ideations when she came in. Judgement: Poor. Insight: Poor. Assessment Copy F31.10 Bipolar disorder, current episode manic without psychotic features, uns pecified F60.2 Antisocial personality disorder F12.90 Cannabis use, unspecified, uncomplicated F43.10 Post-traumatic stress disorder, unspecified Plan Copy Continue [place] 600 mg daily will draw the levels next week. Shes detained further will convert to PC as she will likely take some time to resolve. She may even need [place] long term care social worker as it appears she has been provoked into a manic episode. Will attempt to titrate [place] to avoid this case because has the potential for a mixed episode. Vital Signs Vital Signs Date Time Temp Pulse Resp B/P (MAP) Pulse Ox O2 Delivery O2 Flow Rate FiO2 04/24/20 06:38 98.8 85 16 138/59 (85) Room Air 04/22/20 06:44 99 Current Medications Current Medications Medications (Trade) Dose Ordered Sig/Sima Route PRN Reason Start Time Stop Time Status Last Admin Dose Admin Acetaminophen (Tylenol Tab) 650 mg Q6HP PRN PO HEADACHE or DISCOMFORT 04/14/20 15:15 04/23/20 20:19 Al Hydrox/Mg Hydrox/Simethicone (Mylanta) 30 ml Q4HP PRN PO HEARTBURN/INDIGESTION 04/14/20 15:15 Amitriptyline HCl (Elavil) 20 mg QHS PO 04/14/20 21:00 04/20/20 12:27 DC 04/19/20 21:40 Diphenhydramine HCl (Benadryl) 50 mg STAT STAT IM 04/20/20 13:52 04/20/20 13:57 DC 04/20/20 14:03 Fluticasone Propionate (Flonase 0.05% Nasal [place]) 1 spray BIDP PRN NARES CONGESTION 04/14/20 22:00 Haloperidol (Haldol) 5 mg STAT STAT IM 04/15/20 05:54 04/15/20 05:56 DC 04/15/20 06:01 Haloperidol (Haldol) 10 mg STAT STAT IM 04/20/20 13:52 04/20/20 13:57 DC 04/20/20 14:03 Home Med (Med Rec Complete!) ASDIRECTED XX 04/14/20 20:30 04/14/20 20:30 DC Hydroxyzine HCl (Atarax) 50 mg BIDP PRN PO ANXIETY/AGITATION 04/14/20 22:00 04/16/20 13:25 DC 04/16/20 08:52 Hydroxyzine HCl (Atarax) 50 mg Q4H PRN PO ANXIETY/AGITATION 04/16/20 13:30 04/23/20 13:58 Ibuprofen (Advil) 600 mg DAILY PRN PO HEADACHE 04/16/20 11:30 04/24/20 08:07 Ibuprofen (Advil) 600 mg Q6HP PRN PO MODERATE PAIN (PS 5-7) 04/16/20 10:45 UNV [place] Carbonate ([place] Carbonate) 150 mg BID PO 04/19/20 09:00 04/20/20 12:27 DC 04/20/20 08:05 [place] Carbonate ([place] Carbonate) 300 mg QAM PO 04/21/20 09:00 04/23/20 14:26 DC 04/23/20 08:20 [place] Carbonate ([place] Carbonate) 500 mg QAM PO 04/24/20 09:00 04/23/20 14:47 DC [place] Carbonate ([place] Carbonate) 600 mg QAM PO 04/24/20 09:00 04/24/20 08:06 Lorazepam (Ativan) 1 mg STAT STAT IM 04/15/20 05:54 04/15/20 05:56 DC 04/15/20 06:01 Lorazepam (Ativan) 2 mg STAT STAT IM 04/20/20 13:52 04/20/20 13:57 DC 04/20/20 14:03 Lurasidone HCl (Latuda) 20 mg DAILY@18 PO 04/16/20 18:00 04/17/20 11:58 DC 04/16/20 17:04 Lurasidone HCl (Latuda) 40 mg DAILY@18 PO 04/17/20 18:00 04/19/20 13:07 DC 04/17/20 17:55 Magnesium Hydroxide (Milk Of Magnesia) 30 ml DAILYPRN PRN PO CONSTIPATION 04/14/20 15:15 Montelukast Sodium (Singulair) 10 mg DAILY PO 04/15/20 09:00 04/24/20 08:06 Nicotine (Nicoderm Cq 14mg) 1 patch DAILY TD 04/15/20 09:00 04/24/20 08:07 Olanzapine (ZyPREXA ZYDIS) 10 mg Q4HP PRN PO AGITATION 04/14/20 15:15 04/21/20 18:08 Prazosin HCl (Minipress) 1 mg QHS PO 04/17/20 21:00 04/23/20 20:18 Propranolol HCl (Inderal La) 60 mg QHS PO 04/14/20 21:00 04/23/20 20:18 Trazodone HCl (Desyrel) 50 mg QHSP PRN PO INSOMNIA 04/14/20 15:15 04/23/20 20:18 Allergies Coded Allergies: codeine (Verified Allergy, Intermediate, HIVES, 04/02/20) hydrocodone (Verified Allergy, Intermediate, HIVES ITCHING, 04/02/20) latex (Verified Allergy, Intermediate, HIVES ITCHING, 04/02/20) Dust (Verified Allergy, Unknown, 04/02/20) POLLEN (Verified Allergy, Unknown, 04/02/20) aspirin (Verified Adverse Reaction, Intermediate, ITP, 04/02/20) ibuprofen (Verified Adverse Reaction, Intermediate, ITP, 04/03/20) PATIENT IS LIMITED TO 1+600MG OR LESS A DAY PER NEUROLOGY (DAGO BO DO Apr 24, 2020 09:51
--- NOTE | 2020-04-24 10:06 | IPNPDOC ---
Text Note Date of Service The patient was seen on 04/24/20. NOTE Subjective: I was asked by nursing staff to see Mrs. Horta this morning to address some of her concerns. I saw Ms. Horta and she was interested in knowing the results of her latest thyroid results. I discussed with her her low TSH level and normal free T4 level and explained the meaning of the results. We discussed that she'll longer needs propanolol nightly and she will follow-up on this with her model and pattern supervisor. The patient has an appointment with her model and pattern supervisor Dr. Elvie Benoit on May 22 I asked the patient to make sure she keeps the appointment and follows with her model and pattern supervisor. She had no other questions or complaints at this time. When asked about her elevated blood pressure patient tells me that it's often becomes elevated when she feels stressed Objective: Patient appeared well and was in no distress and was comfortable speaking in full sentences splaying no shortness of breath at this time Vital signs from this morning were reviewed her blood pressure was a little elevated but at times it is normal. Assessment/plan: # Thyroid disorder, asking for results to be reviewed with her: Low TSH, Normal free T4. Repeat testing in 4-6 weeks. Has upcoming appointment with her model and pattern supervisor Elvie Benoit on May 22 which she should keep. Discontinue propanolol. # Elevated blood pressure: Discussed lifestyle modifications. Needs to follow-up with her PCP. Could be associated with stress as she is often normotensive. Thank you for involving me in the care of this patient if you have any further questions or concerns please don't hesitate to reach back signing off for now. VS,Fishbone, I+O VS, Fishbone, I+O Vital Signs Date Time Temp Pulse Resp B/P (MAP) Pulse Ox O2 Delivery O2 Flow Rate FiO2 04/24/20 06:38 98.8 85 16 138/59 (85) Room Air 04/22/20 06:44 99 STAN BURTON MD Apr 24, 2020 10:06
[2020-04-24] MEDS: ACETAMINOPHEN TAB 650MG DOSE (2X325MG) PO PRN ×2 (10:23→17:11)
--- NOTE | 2020-04-24 10:56 | MHIPN ---
DATE: 04/22/2020 VITAL SIGNS: Blood pressure 112/71, pulse 100, temperature 97.9 CHIEF COMPLAINT: Says feels okay. SUBJECTIVE: Seen for follow up. I am assigned to her care again today as her doctor is not here. Says she has been doing okay. Has a headache, says uses sumatriptan for it. Says see neurology for it. Slept well. MENTAL STATUS EXAMINATION: She is seen in the presence of staff. She is neat. She is cooperative. There is no agitation. No psychomotor retardation. She is coherent. Affect is reactive, broad and no evidence of any thoughts of harming herself at present, nor of any psychosis. Her cognition is grossly intact. Judgment and insight remain somewhat compromised. ASSESSMENT: Bipolar disorder, most recent episode manic. PLAN: Continue current care, observations and this includes lithium carbonate, as well as prazosin and hydroxyzine as needed. Further recommendations will be depending on the clinical picture. She is awaiting a court hearing. She will be seeing the assigned psychiatrist tomorrow. LOLY
[2020-04-24] MEDS: SUMAtriptan SUCCINATE 25 MG TAB PO PRN (11:55)
[2020-04-24] MEDS: hydrOXYzine 50 MG TAB PO PRN (13:23)
[2020-04-24] MEDS: OLANZapine ORAL DISINTEGRATING TAB 5MG PO PRN (17:11)
[2020-04-24] MEDS: PRAZOSIN 1 MG CAP PO SCH (21:00)
[2020-04-25 06:35] VITALS: BP 130/82
[2020-04-25] MEDS: MONTELUKAST 10 MG TAB PO SCH (08:16)
[2020-04-25] MEDS: LITHIUM CARBONATE 600 MG CAP PO SCH (08:16)
[2020-04-25] MEDS: NICOTINE 14 MG/24 HR TRANSDERMAL TD SCH (08:16)
[2020-04-25] MEDS: IBUPROFEN 600MG TAB PO PRN (08:17)
[2020-04-25] MEDS: hydrOXYzine 50 MG TAB PO PRN ×2 (09:36→15:00)
[2020-04-25] MEDS: SUMAtriptan SUCCINATE 25 MG TAB PO PRN (11:45)
[2020-04-25 16:00] VITALS: BP 134/64
[2020-04-25] MEDS: ACETAMINOPHEN TAB 650MG DOSE (2X325MG) PO PRN (17:18)
[2020-04-25] MEDS: PRAZOSIN 1 MG CAP PO SCH (20:43)
[2020-04-25] MEDS: traZODone 50 MG TAB PO PRN (22:00)
[2020-04-26] MEDS: SUMAtriptan SUCCINATE 25 MG TAB PO PRN (06:47)
[2020-04-26 06:55] VITALS: BP 144/96
[2020-04-26] MEDS: MONTELUKAST 10 MG TAB PO SCH (08:14)
[2020-04-26] MEDS: LITHIUM CARBONATE 600 MG CAP PO SCH (08:15)
[2020-04-26] MEDS: NICOTINE 14 MG/24 HR TRANSDERMAL TD SCH (08:15)
[2020-04-26] MEDS: IBUPROFEN 600MG TAB PO PRN (08:16)
[2020-04-26] MEDS: hydrOXYzine 50 MG TAB PO PRN ×2 (10:35→15:59)
[2020-04-26] MEDS: ACETAMINOPHEN TAB 650MG DOSE (2X325MG) PO PRN ×2 (10:36→20:34)
[2020-04-26 18:00] VITALS: BP 112/66
[2020-04-26] MEDS: PRAZOSIN 1 MG CAP PO SCH (20:34)
[2020-04-27 07:02] VITALS: BP 130/78
--- NOTE | 2020-04-27 09:44 | MHIPNPDOC ---
[facility] Progress Note Progress Note DATE OF SERVICE: 04/27/20 HISTORY: The patient is met with today, she has had some episodes day of yelling and being upset, she still is somewhat disorganized and labile throughout the day. She is met with where she reports that she still upset about her son's father denying her access to her son and that she feels that her family are her primary stressors. She has had quite a bit of liability in terms of her affect and still has moments where she will yell and become quite agitated when ever presented with even mild frustration. VITAL SIGNS: See below. NEW TEST RESULTS: None today. CURRENT MEDICATIONS: See below. MENTAL STATUS EXAMINATION: General: [Well dressed with good hygiene] Speech: Hyperverbal Thought processes: Circumstantial/tangential Thought content: Irritated Abstract reasoning, and computation: Impaired Description of associations: Impaired Description of abnormal or psychotic thoughts: Denies SI or HI today, denies aud itory or visual hallucinations Judgment: Poor Insight: Poor Orientation: [Alert and orientated 3] Recent and remote memory: [Intact] Attention span and concentration: Impaired secondary to thought process Fund of knowledge: [Adequate] Mood: "Fine" Affect: Somewhat flat with excessive reactivity DIAGNOSES: 1. Bipolar disorder, type I most recent episode manic. 2. Cannabis use disorder. 3. PTSD, antisocial personality disorder. ASSESSMENT: Patient appears making slow but steady progress in terms of her ag itation and mood, we will try lithium level to help determine her optimal levels she will need to be converted to 2 provider certification as it's unlikely she is going to resolve in the next week or so MANAGEMENT PLAN: Will continue lithium 600 mg daily, lithium trough level to be drawn tomorrow, we'll consider adding neuroleptic if patient can be convinced to try medication as augmentation such as an antipsychotic for mixed episode and she very likely could have TIME SPENT: 15 minutes. Vital Signs Vital Signs Date Time Temp Pulse Resp B/P (MAP) Pulse Ox O2 Delivery O2 Flow Rate FiO2 04/27/20 07:02 99.6 90 16 130/78 (95) 99 Room Air Current Medications Current Medications Medications (Trade) Dose Ordered Sig/Sima Route PRN Reason Start Time Stop Time Status Last Admin Dose Admin Acetaminophen (Tylenol Tab) 650 mg Q6HP PRN PO HEADACHE or DISCOMFORT 04/14/20 15:15 04/26/20 20:34 Al Hydrox/Mg Hydrox/Simethicone (Mylanta) 30 ml Q4HP PRN PO HEARTBURN/INDIGESTION 04/14/20 15:15 Amitriptyline HCl (Elavil) 20 mg QHS PO 04/14/20 21:00 04/20/20 12:27 DC 04/19/20 21:40 Diphenhydramine HCl (Benadryl) 50 mg STAT STAT IM 04/20/20 13:52 04/20/20 13:57 DC 04/20/20 14:03 Fluticasone Propionate (Flonase 0.05% Nasal [place]) 1 spray BIDP PRN NARES CONGESTION 04/14/20 22:00 Haloperidol (Haldol) 5 mg STAT STAT IM 04/15/20 05:54 04/15/20 05:56 DC 04/15/20 06:01 Haloperidol (Haldol) 10 mg STAT STAT IM 04/20/20 13:52 04/20/20 13:57 DC 04/20/20 14:03 Home Med (Med Rec Complete!) ASDIRECTED XX 04/14/20 20:30 04/14/20 20:30 DC Hydroxyzine HCl (Atarax) 50 mg BIDP PRN PO ANXIETY/AGITATION 04/14/20 22:00 04/16/20 13:25 DC 04/16/20 08:52 Hydroxyzine HCl (Atarax) 50 mg Q4H PRN PO ANXIETY/AGITATION 04/16/20 13:30 04/26/20 15:59 Ibuprofen (Advil) 600 mg DAILY PRN PO HEADACHE 04/16/20 11:30 04/26/20 08:16 Ibuprofen (Advil) 600 mg Q6HP PRN PO MODERATE PAIN (PS 5-7) 04/16/20 10:45 UNV [place] Carbonate ([place] Carbonate) 150 mg BID PO 04/19/20 09:00 04/20/20 12:27 DC 04/20/20 08:05 [place] Carbonate ([place] Carbonate) 300 mg QAM PO 04/21/20 09:00 04/23/20 14:26 DC 04/23/20 08:20 [place] Carbonate ([place] Carbonate) 500 mg QAM PO 04/24/20 09:00 04/23/20 14:47 DC [place] Carbonate ([place] Carbonate) 600 mg QAM PO 04/24/20 09:00 04/26/20 08:15 Lorazepam (Ativan) 1 mg STAT STAT IM 04/15/20 05:54 04/15/20 05:56 DC 04/15/20 06:01 Lorazepam (Ativan) 2 mg STAT STAT IM 04/20/20 13:52 04/20/20 13:57 DC 04/20/20 14:03 Lurasidone HCl (Latuda) 20 mg DAILY@18 PO 04/16/20 18:00 04/17/20 11:58 DC 04/16/20 17:04 Lurasidone HCl (Latuda) 40 mg DAILY@18 PO 04/17/20 18:00 04/19/20 13:07 DC 04/17/20 17:55 Magnesium Hydroxide (Milk Of Magnesia) 30 ml DAILYPRN PRN PO CONSTIPATION 04/14/20 15:15 Montelukast Sodium (Singulair) 10 mg DAILY PO 04/15/20 09:00 04/26/20 08:14 Nicotine (Nicoderm Cq 14mg) 1 patch DAILY TD 04/15/20 09:00 04/26/20 08:15 Olanzapine (ZyPREXA ZYDIS) 10 mg Q4HP PRN PO AGITATION 04/14/20 15:15 04/24/20 17:11 Prazosin HCl (Minipress) 1 mg QHS PO 04/17/20 21:00 04/26/20 20:34 Propranolol HCl (Inderal La) 60 mg QHS PO 04/14/20 21:00 04/24/20 09:57 DC 04/23/20 20:18 Sumatriptan Succinate (Imitrex) 25 mg DAILYPRN PRN PO migraine 04/24/20 10:45 04/26/20 06:47 Trazodone HCl (Desyrel) 50 mg QHSP PRN PO INSOMNIA 04/14/20 15:15 04/25/20 22:00 Allergies Coded Allergies: codeine (Verified Allergy, Intermediate, HIVES, 04/02/20) hydrocodone (Verified Allergy, Intermediate, HIVES ITCHING, 04/02/20) latex (Verified Allergy, Intermediate, HIVES ITCHING, 04/02/20) Dust (Verified Allergy, Unknown, 04/02/20) POLLEN (Verified Allergy, Unknown, 04/02/20) aspirin (Verified Adverse Reaction, Intermediate, ITP, 04/02/20) ibuprofen (Verified Adverse Reaction, Intermediate, ITP, 04/03/20) PATIENT IS LIMITED TO 1+600MG OR LESS A DAY PER NEUROLOGY (DR Ken ZUNIGA) DAGO GAMEZ DO Apr 27, 2020 09:44
[2020-04-27] MEDS: LITHIUM CARBONATE 600 MG CAP PO SCH (10:04)
[2020-04-27] MEDS: MONTELUKAST 10 MG TAB PO SCH (10:04)
[2020-04-27] MEDS: NICOTINE 14 MG/24 HR TRANSDERMAL TD SCH (10:04)
[2020-04-27] MEDS: SUMAtriptan SUCCINATE 25 MG TAB PO PRN (11:36)
[2020-04-27] MEDS: IBUPROFEN 600MG TAB PO PRN (11:36)
[2020-04-27] MEDS: hydrOXYzine 50 MG TAB PO PRN (13:10)
[2020-04-27 16:52] VITALS: BP 115/69
[2020-04-27] MEDS: PRAZOSIN 1 MG CAP PO SCH (21:05)
[2020-04-28 06:24] VITALS: BP 112/58
[2020-04-28] MEDS: MONTELUKAST 10 MG TAB PO SCH (08:23)
[2020-04-28] MEDS: LITHIUM CARBONATE 600 MG CAP PO SCH (08:23)
[2020-04-28] MEDS: NICOTINE 14 MG/24 HR TRANSDERMAL TD SCH (08:23)
[2020-04-28] MEDS: ACETAMINOPHEN TAB 650MG DOSE (2X325MG) PO PRN (08:24)
--- NOTE | 2020-04-28 09:57 | MHIPNPDOC ---
[facility] Progress Note Progress Note DATE OF SERVICE: 04/28/20 HISTORY: the patient is met with today, she continues to be quite pressured in her speech, she is had some episodes of agitation and yelling but is notably l ess rancorous than it is been prior. She reports that she is still amenable to taking lithium, although she had been yelling in her room that she plans not to take lithium when she leaves. She is still quite disorganized at times yelling and quite irritable. VITAL SIGNS: See below. NEW TEST RESULTS: lithium level 0.4 CURRENT MEDICATIONS: See below. MENTAL STATUS EXAMINATION: General: [Well dressed with good hygiene] Speech: Hyperverbal Thought processes: Circumstantial/tangential Thought content: Irritated Abstract reasoning, and computation: Impaired Description of associations: Impaired Description of abnormal or psychotic thoughts: Denies SI or HI today, denies auditory or visual hallucinations Judgment: Poor Insight: Poor Orientation: [Alert and orientated 3] Recent and remote memory: [Intact] Attention span and concentration: Impaired secondary to thought process Fund of knowledge: [Adequate] Mood: "Fine" Affect: Somewhat flat with excessive reactivity DIAGNOSES: 1. Bipolar disorder, type I most recent episode manic. 2. Cannabis use disorder. 3. PTSD, antisocial personality disorder. ASSESSMENT: patient appears to be making very slow progress at this time, she is converted to a 2 provider certification. She may even need long-term treatment as she is not progressing very well and is still appears unable to control her behavior MANAGEMENT PLAN: Increase lithium to 600 mg daily/150 mg nightly Continue to treat discharge unlikely this week TIME SPENT: 15 minutes. Vital Signs Vital Signs Date Time Temp Pulse Resp B/P (MAP) Pulse Ox O2 Delivery O2 Flow Rate FiO2 04/28/20 06:24 98.0 88 16 112/58 (76) Room Air 04/27/20 07:02 99 Laboratory Data 24H Labs Laboratory Tests 2 04/27/20 16:10: Coronavirus (COVID-19)(PCR) NEGATIVE 04/28/20 07:27: [place] Level 0.40L Current Medications Current Medications Medications (Trade) Dose Ordered Sig/Sima Route PRN Reason Start Time Stop Time Status Last Admin Dose Admin Acetaminophen (Tylenol Tab) 650 mg Q6HP PRN PO HEADACHE or DISCOMFORT 04/14/20 15:15 11/24/20 08:24 Al Hydrox/Mg Hydrox/Simethicone (Mylanta) 30 ml Q4HP PRN PO HEARTBURN/INDIGESTION 04/14/20 15:15 Amitriptyline HCl (Elavil) 20 mg QHS PO 04/14/20 21:00 04/20/20 12:27 DC 04/19/20 21:40 Diphenhydramine HCl (Benadryl) 50 mg STAT STAT IM 04/20/20 13:52 04/20/20 13:57 DC 04/20/20 14:03 Fluticasone Propionate (Flonase 0.05% Nasal [place]) 1 spray BIDP PRN NARES CONGESTION 04/14/20 22:00 Haloperidol (Haldol) 5 mg STAT STAT IM 04/15/20 05:54 04/15/20 05:56 DC 04/15/20 06:01 Haloperidol (Haldol) 10 mg STAT STAT IM 04/20/20 13:52 04/20/20 13:57 DC 04/20/20 14:03 Home Med (Med Rec Complete!) ASDIRECTED XX 04/14/20 20:30 04/14/20 20:30 DC Hydroxyzine HCl (Atarax) 50 mg BIDP PRN PO ANXIETY/AGITATION 04/14/20 22:00 04/16/20 13:25 DC 04/16/20 08:52 Hydroxyzine HCl (Atarax) 50 mg Q4H PRN PO ANXIETY/AGITATION 04/16/20 13:30 04/27/20 13:10 Ibuprofen (Advil) 600 mg DAILY PRN PO HEADACHE 04/16/20 11:30 04/27/20 11:36 Ibuprofen (Advil) 600 mg Q6HP PRN PO MODERATE PAIN (PS 5-7) 04/16/20 10:45 UNV [place] Carbonate ([place] Carbonate) 150 mg BID PO 04/19/20 09:00 04/20/20 12:27 DC 04/20/20 08:05 [place] Carbonate ([place] Carbonate) 300 mg QAM PO 04/21/20 09:00 04/23/20 14:26 DC 04/23/20 08:20 [place] Carbonate ([place] Carbonate) 500 mg QAM PO 04/24/20 09:00 04/23/20 14:47 DC [place] Carbonate ([place] Carbonate) 600 mg QAM PO 04/24/20 09:00 04/28/20 08:23 Lorazepam (Ativan) 1 mg STAT STAT IM 04/15/20 05:54 04/15/20 05:56 DC 04/15/20 06:01 Lorazepam (Ativan) 2 mg STAT STAT IM 04/20/20 13:52 04/20/20 13:57 DC 04/20/20 14:03 Lurasidone HCl (Latuda) 20 mg DAILY@18 PO 04/16/20 18:00 04/17/20 11:58 DC 04/16/20 17:04 Lurasidone HCl (Latuda) 40 mg DAILY@18 PO 04/17/20 18:00 04/19/20 13:07 DC 04/17/20 17:55 Magnesium Hydroxide (Milk Of Magnesia) 30 ml DAILYPRN PRN PO CONSTIPATION 04/14/20 15:15 Montelukast Sodium (Singulair) 10 mg DAILY PO 04/15/20 09:00 04/28/20 08:23 Nicotine (Nicoderm Cq 14mg) 1 patch DAILY TD 04/15/20 09:00 04/28/20 08:23 Olanzapine (ZyPREXA ZYDIS) 10 mg Q4HP PRN PO AGITATION 04/14/20 15:15 04/24/20 17:11 Prazosin HCl (Minipress) 1 mg QHS PO 04/17/20 21:00 04/27/20 21:05 Propranolol HCl (Inderal La) 60 mg QHS PO 04/14/20 21:00 04/24/20 09:57 DC 04/23/20 20:18 Sumatriptan Succinate (Imitrex) 25 mg DAILYPRN PRN PO migraine 04/24/20 10:45 04/27/20 11:36 Trazodone HCl (Desyrel) 50 mg QHSP PRN PO INSOMNIA 04/14/20 15:15 04/25/20 22:00 Allergies Coded Allergies: codeine (Verified Allergy, Intermediate, HIVES, 04/02/20) hydrocodone (Verified Allergy, Intermediate, HIVES ITCHING, 04/02/20) latex (Verified Allergy, Intermediate, HIVES ITCHING, 04/02/20) Dust (Verified Allergy, Unknown, 04/02/20) POLLEN (Verified Allergy, Unknown, 04/02/20) aspirin (Verified Adverse Reaction, Intermediate, ITP, 04/02/20) ibuprofen (Verified Adverse Reaction, Intermediate, ITP, 04/03/20) PATIENT IS LIMITED TO 1+600MG OR LESS A DAY PER NEUROLOGY (DR Ken ZUNIGA) DAGO GAMEZ DO Apr 28, 2020 09:57
[2020-04-28] MEDS: SUMAtriptan SUCCINATE 25 MG TAB PO PRN (11:48)
[2020-04-28] MEDS: hydrOXYzine 50 MG TAB PO PRN (11:50)
[2020-04-28] MEDS: IBUPROFEN 600MG TAB PO PRN (11:50)
[2020-04-28 16:21] VITALS: BP 115/56
[2020-04-28] MEDS ORDERED: LITHIUM CARBONATE 300 MG CAP PO SCH (21:00)
[2020-04-28] MEDS: OLANZapine ORAL DISINTEGRATING TAB 5MG PO PRN (21:26)
[2020-04-28] MEDS: PRAZOSIN 1 MG CAP PO SCH (22:00)
[2020-04-28] MEDS: LITHIUM CARBONATE 150 MG CAP PO SCH (22:04)
[2020-04-29 06:33] VITALS: BP 145/81
[2020-04-29] MEDS: NICOTINE 14 MG/24 HR TRANSDERMAL TD SCH (09:20)
[2020-04-29] MEDS: ACETAMINOPHEN TAB 650MG DOSE (2X325MG) PO PRN ×2 (09:21→22:09)
[2020-04-29] MEDS: LITHIUM CARBONATE 600 MG CAP PO SCH (09:21)
[2020-04-29] MEDS: MONTELUKAST 10 MG TAB PO SCH (09:21)
--- NOTE | 2020-04-29 10:48 | MHIPNPDOC ---
[facility] Progress Note Progress Note DATE OF SERVICE: 04/29/20 HISTORY: the patient is met with today, she had a incident the previous evening, where she was speaking about a fairly lewd topic, offending other patients due to her crassness, when she was attempt to be redirected. She became increasingly aggressive nearly to the point where she had to be restrained. She reports she notices the lithium isn't as helpful for her, she still notices lots of anger and depression. VITAL SIGNS: See below. NEW TEST RESULTS: lithium level 0.4 CURRENT MEDICATIONS: See below. MENTAL STATUS EXAMINATION: General: [Well dressed with good hygiene] Speech: Hyperverbal Thought processes: Circumstantial/tangential Thought content: Irritated Abstract reasoning, and computation: Impaired Description of associations: Impaired Description of abnormal or psychotic thoughts: Denies SI or HI today, denies auditory or visual hallucinations Judgment: Poor Insight: Poor Orientation: [Alert and orientated 3] Recent and remote memory: [Intact] Attention span and concentration: Impaired secondary to thought process Fund of knowledge: [Adequate] Mood: "Fine" Affect: Somewhat flat with excessive reactivity DIAGNOSES: 1. Bipolar disorder, type I most recent episode manic. 2. Cannabis use disorder. 3. PTSD, antisocial personality disorder. ASSESSMENT: the patient appears to be likely in a mixed episode will need to add antipsychotic MANAGEMENT PLAN: Continue lithium to 600 mg daily/150 mg nightly Start Vrylar 1.5mg daily Referral to long-term care in process TIME SPENT: 15 minutes. Vital Signs Vital Signs Date Time Temp Pulse Resp B/P (MAP) Pulse Ox O2 Delivery O2 Flow Rate FiO2 04/29/20 06:33 99.3 96 16 145/81 (102) 100 Room Air Current Medications Current Medications Medications (Trade) Dose Ordered Sig/Sima Route PRN Reason Start Time Stop Time Status Last Admin Dose Admin Acetaminophen (Tylenol Tab) 650 mg Q6HP PRN PO HEADACHE or DISCOMFORT 04/14/20 15:15 04/29/20 09:21 Al Hydrox/Mg Hydrox/Simethicone (Mylanta) 30 ml Q4HP PRN PO HEARTBURN/INDIGESTION 04/14/20 15:15 Amitriptyline HCl (Elavil) 20 mg QHS PO 04/14/20 21:00 04/20/20 12:27 DC 04/19/20 21:40 Diphenhydramine HCl (Benadryl) 50 mg STAT STAT IM 04/20/20 13:52 04/20/20 13:57 DC 04/20/20 14:03 Fluticasone Propionate (Flonase 0.05% Nasal [place]) 1 spray BIDP PRN NARES CONGESTION 04/14/20 22:00 Haloperidol (Haldol) 5 mg STAT STAT IM 04/15/20 05:54 04/15/20 05:56 DC 04/15/20 06:01 Haloperidol (Haldol) 10 mg STAT STAT IM 04/20/20 13:52 04/20/20 13:57 DC 04/20/20 14:03 Home Med (Med Rec Complete!) ASDIRECTED XX 04/14/20 20:30 04/14/20 20:30 DC Hydroxyzine HCl (Atarax) 50 mg BIDP PRN PO ANXIETY/AGITATION 04/14/20 22:00 04/16/20 13:25 DC 04/16/20 08:52 Hydroxyzine HCl (Atarax) 50 mg Q4H PRN PO ANXIETY/AGITATION 04/16/20 13:30 04/28/20 11:50 Ibuprofen (Advil) 600 mg DAILY PRN PO HEADACHE 04/16/20 11:30 04/28/20 11:50 Ibuprofen (Advil) 600 mg Q6HP PRN PO MODERATE PAIN (PS 5-7) 04/16/20 10:45 UNV [place] Carbonate ([place] Carbonate) 150 mg BID PO 04/19/20 09:00 04/20/20 12:27 DC 04/20/20 08:05 [place] Carbonate ([place] Carbonate) 150 mg QHS PO 04/28/20 21:00 04/28/20 21:29 DC [place] Carbonate ([place] Carbonate) 150 mg QHS PO 04/28/20 21:00 04/28/20 22:04 [place] Carbonate ([place] Carbonate) 300 mg QAM PO 04/21/20 09:00 04/23/20 14:26 DC 04/23/20 08:20 [place] Carbonate ([place] Carbonate) 500 mg QAM PO 04/24/20 09:00 04/23/20 14:47 DC [place] Carbonate ([place] Carbonate) 600 mg QAM PO 04/24/20 09:00 04/29/20 09:21 Lorazepam (Ativan) 1 mg STAT STAT IM 04/15/20 05:54 04/15/20 05:56 DC 04/15/20 06:01 Lorazepam (Ativan) 2 mg STAT STAT IM 04/20/20 13:52 04/20/20 13:57 DC 04/20/20 14:03 Lurasidone HCl (Latuda) 20 mg DAILY@18 PO 04/16/20 18:00 04/17/20 11:58 DC 04/16/20 17:04 Lurasidone HCl (Latuda) 40 mg DAILY@18 PO 04/17/20 18:00 04/19/20 13:07 DC 04/17/20 17:55 Magnesium Hydroxide (Milk Of Magnesia) 30 ml DAILYPRN PRN PO CONSTIPATION 04/14/20 15:15 Montelukast Sodium (Singulair) 10 mg DAILY PO 04/15/20 09:00 04/29/20 09:21 Nicotine (Nicoderm Cq 14mg) 1 patch DAILY TD 04/15/20 09:00 04/29/20 09:20 Olanzapine (ZyPREXA ZYDIS) 10 mg Q4HP PRN PO AGITATION 04/14/20 15:15 04/28/20 21:26 Prazosin HCl (Minipress) 1 mg QHS PO 04/17/20 21:00 04/28/20 22:00 Propranolol HCl (Inderal La) 60 mg QHS PO 04/14/20 21:00 04/24/20 09:57 DC 04/23/20 20:18 Sumatriptan Succinate (Imitrex) 25 mg DAILYPRN PRN PO migraine 04/24/20 10:45 04/28/20 11:48 Trazodone HCl (Desyrel) 50 mg QHSP PRN PO INSOMNIA 04/14/20 15:15 04/25/20 22:00 Allergies Coded Allergies: codeine (Verified Allergy, Intermediate, HIVES, 04/02/20) hydrocodone (Verified Allergy, Intermediate, HIVES ITCHING, 04/02/20) latex (Verified Allergy, Intermediate, HIVES ITCHING, 04/02/20) Dust (Verified Allergy, Unknown, 04/02/20) POLLEN (Verified Allergy, Unknown, 04/02/20) aspirin (Verified Adverse Reaction, Intermediate, ITP, 04/02/20) ibuprofen (Verified Adverse Reaction, Intermediate, ITP, 04/03/20) PATIENT IS LIMITED TO 1+600MG OR LESS A DAY PER NEUROLOGY (DR Ken ZUNIGA) DAGO GAMEZ DO Apr 29, 2020 10:48
[2020-04-29] MEDS: hydrOXYzine 50 MG TAB PO PRN (11:27)
[2020-04-29] MEDS: OLANZapine ORAL DISINTEGRATING TAB 5MG PO PRN ×2 (14:23→22:08)
[2020-04-29] MEDS ORDERED: CARIPRAZINE 1.5MG CAPSULE (VRAYLAR) PO ONE (14:45)
[2020-04-29] MEDS: SUMAtriptan SUCCINATE 25 MG TAB PO PRN (15:35)
[2020-04-29] MEDS: IBUPROFEN 600MG TAB PO PRN (15:35)
[2020-04-29 16:00] VITALS: BP 125/75
[2020-04-29] MEDS: LITHIUM CARBONATE 150 MG CAP PO SCH (22:08)
[2020-04-29] MEDS: PRAZOSIN 1 MG CAP PO SCH (22:08)
[2020-04-30 06:42] VITALS: BP 113/61
[2020-04-30] MEDS: hydrOXYzine 50 MG TAB PO PRN ×2 (08:53→20:15)
[2020-04-30] MEDS: NICOTINE 14 MG/24 HR TRANSDERMAL TD SCH (08:53)
[2020-04-30] MEDS: MONTELUKAST 10 MG TAB PO SCH (08:54)
[2020-04-30] MEDS: LITHIUM CARBONATE 600 MG CAP PO SCH (08:54)
[2020-04-30] MEDS: CARIPRAZINE 1.5MG CAPSULE (VRAYLAR) PO SCH (08:54)
[2020-04-30] MEDS: IBUPROFEN 600MG TAB PO PRN ×2 (08:55→18:17)
[2020-04-30 17:55] VITALS: BP 135/91
[2020-04-30] MEDS: SUMAtriptan SUCCINATE 25 MG TAB PO PRN (18:17)
[2020-04-30] MEDS: PRAZOSIN 1 MG CAP PO SCH (20:15)
[2020-04-30] MEDS: LITHIUM CARBONATE 150 MG CAP PO SCH (20:15)
[2020-04-30] MEDS: OLANZapine ORAL DISINTEGRATING TAB 5MG PO PRN (20:15)
[2020-05-01 06:55] VITALS: BP 118/67
--- NOTE | 2020-05-01 09:54 | MHIPNPDOC ---
[facility] Progress Note Progress Note DATE OF SERVICE: 05/01/20 HISTORY: The patient is met with today, she is much more focused and staff report that she is doing fairly well without any major issues the patient otherwise has been quite engaged much more pleasant and cooperative. The patient works she is feeling much improved on the new medication and that it is helping her stay much more stable and less irritable. VITAL SIGNS: See below. NEW TEST RESULTS: Repeat lithium CURRENT MEDICATIONS: See below. MENTAL STATUS EXAMINATION: General: [Well dressed with good hygiene] Speech: Less pressured Thought processes: Improved Thought content: Irritated Abstract reasoning, and computation: Impaired Description of associations: Impaired Description of abnormal or psychotic thoughts: Denies SI or HI today, denies auditory or visual hallucinations Judgment: Improved Insight: Improved Orientation: [Alert and orientated 3] Recent and remote memory: [Intact] Attention span and concentration: Much more focused Fund of knowledge: [Adequate] Mood: "Fine" Affect: More euthymic DIAGNOSES: 1. Bipolar disorder, type I most recent episode manic. 2. Cannabis use disorder. 3. PTSD, antisocial personality disorder. ASSESSMENT: Patient appears to be making excellent progress on her new medication, and appears this supports a diagnosis of mixed bipolar MANAGEMENT PLAN: Continue lithium to 600 mg daily/150 mg nightly, repeat lithium trough Continue Vrylar 1.5mg daily Will be unlikely to need long-term care if progress is maintained TIME SPENT: 15 minutes. Vital Signs Vital Signs Date Time Temp Pulse Resp B/P (MAP) Pulse Ox O2 Delivery O2 Flow Rate FiO2 05/01/20 06:55 98.8 83 16 118/67 (84) 98 Room Air Current Medications Current Medications Medications (Trade) Dose Ordered Sig/Sima Route PRN Reason Start Time Stop Time Status Last Admin Dose Admin Acetaminophen (Tylenol Tab) 650 mg Q6HP PRN PO HEADACHE or DISCOMFORT 04/14/20 15:15 04/29/20 22:09 Al Hydrox/Mg Hydrox/Simethicone (Mylanta) 30 ml Q4HP PRN PO HEARTBURN/INDIGESTION 04/14/20 15:15 Amitriptyline HCl (Elavil) 20 mg QHS PO 04/14/20 21:00 04/20/20 12:27 DC 04/19/20 21:40 Cariprazine (Vraylar) 1.5 mg DAILY PO 04/30/20 09:00 04/30/20 08:54 Diphenhydramine HCl (Benadryl) 50 mg STAT STAT IM 04/20/20 13:52 04/20/20 13:57 DC 04/20/20 14:03 Fluticasone Propionate (Flonase 0.05% Nasal [place]) 1 spray BIDP PRN NARES CONGESTION 04/14/20 22:00 Haloperidol (Haldol) 5 mg STAT STAT IM 04/15/20 05:54 04/15/20 05:56 DC 04/15/20 06:01 Haloperidol (Haldol) 10 mg STAT STAT IM 04/20/20 13:52 04/20/20 13:57 DC 04/20/20 14:03 Home Med (Med Rec Complete!) ASDIRECTED XX 04/14/20 20:30 04/14/20 20:30 DC Hydroxyzine HCl (Atarax) 50 mg BIDP PRN PO ANXIETY/AGITATION 04/14/20 22:00 04/16/20 13:25 DC 04/16/20 08:52 Hydroxyzine HCl (Atarax) 50 mg Q4H PRN PO ANXIETY/AGITATION 04/16/20 13:30 04/30/20 20:15 Ibuprofen (Advil) 600 mg DAILY PRN PO HEADACHE 04/16/20 11:30 04/30/20 18:17 Ibuprofen (Advil) 600 mg Q6HP PRN PO MODERATE PAIN (PS 5-7) 04/16/20 10:45 UNV [place] Carbonate ([place] Carbonate) 150 mg BID PO 04/19/20 09:00 04/20/20 12:27 DC 04/20/20 08:05 [place] Carbonate ([place] Carbonate) 150 mg QHS PO 04/28/20 21:00 04/28/20 21:29 DC [place] Carbonate ([place] Carbonate) 150 mg QHS PO 04/28/20 21:00 04/30/20 20:15 [place] Carbonate ([place] Carbonate) 300 mg QAM PO 04/21/20 09:00 04/23/20 14:26 DC 04/23/20 08:20 [place] Carbonate ([place] Carbonate) 500 mg QAM PO 04/24/20 09:00 04/23/20 14:47 DC [place] Carbonate ([place] Carbonate) 600 mg QAM PO 04/24/20 09:00 04/30/20 08:54 Lorazepam (Ativan) 1 mg STAT STAT IM 04/15/20 05:54 04/15/20 05:56 DC 04/15/20 06:01 Lorazepam (Ativan) 2 mg STAT STAT IM 04/20/20 13:52 04/20/20 13:57 DC 04/20/20 14:03 Lurasidone HCl (Latuda) 20 mg DAILY@18 PO 04/16/20 18:00 04/17/20 11:58 DC 04/16/20 17:04 Lurasidone HCl (Latuda) 40 mg DAILY@18 PO 04/17/20 18:00 04/19/20 13:07 DC 04/17/20 17:55 Magnesium Hydroxide (Milk Of Magnesia) 30 ml DAILYPRN PRN PO CONSTIPATION 04/14/20 15:15 Montelukast Sodium (Singulair) 10 mg DAILY PO 04/15/20 09:00 04/30/20 08:54 Nicotine (Nicoderm Cq 14mg) 1 patch DAILY TD 04/15/20 09:00 04/30/20 08:53 Olanzapine (ZyPREXA ZYDIS) 10 mg Q4HP PRN PO AGITATION 04/14/20 15:15 04/30/20 20:15 Prazosin HCl (Minipress) 1 mg QHS PO 04/17/20 21:00 04/30/20 20:15 Propranolol HCl (Inderal La) 60 mg QHS PO 04/14/20 21:00 04/24/20 09:57 DC 04/23/20 20:18 Sumatriptan Succinate (Imitrex) 25 mg DAILYPRN PRN PO migraine 04/24/20 10:45 04/30/20 18:17 Trazodone HCl (Desyrel) 50 mg QHSP PRN PO INSOMNIA 04/14/20 15:15 04/25/20 22:00 Allergies Coded Allergies: codeine (Verified Allergy, Intermediate, HIVES, 04/02/20) hydrocodone (Verified Allergy, Intermediate, HIVES ITCHING, 04/02/20) latex (Verified Allergy, Intermediate, HIVES ITCHING, 04/02/20) Dust (Verified Allergy, Unknown, 04/02/20) POLLEN (Verified Allergy, Unknown, 04/02/20) aspirin (Verified Adverse Reaction, Intermediate, ITP, 04/02/20) ibuprofen (Verified Adverse Reaction, Intermediate, ITP, 04/03/20) PATIENT IS LIMITED TO 1+600MG OR LESS A DAY PER NEUROLOGY (DR Ken ZUNIGA) DAGO GAMEZ DO May 01, 2020 09:54
[2020-05-01] MEDS: CARIPRAZINE 1.5MG CAPSULE (VRAYLAR) PO SCH (09:55)
[2020-05-01] MEDS: MONTELUKAST 10 MG TAB PO SCH (09:55)
[2020-05-01] MEDS: NICOTINE 14 MG/24 HR TRANSDERMAL TD SCH (09:56)
[2020-05-01] MEDS: LITHIUM CARBONATE 600 MG CAP PO SCH (09:56)
[2020-05-01] MEDS: ACETAMINOPHEN TAB 650MG DOSE (2X325MG) PO PRN ×2 (10:23→21:07)
[2020-05-01] MEDS: hydrOXYzine 50 MG TAB PO PRN ×2 (10:23→18:57)
[2020-05-01 16:00] VITALS: BP 146/92
[2020-05-01] MEDS: IBUPROFEN 600MG TAB PO PRN (18:57)
[2020-05-01] MEDS: PRAZOSIN 1 MG CAP PO SCH (21:07)
[2020-05-01] MEDS: LITHIUM CARBONATE 150 MG CAP PO SCH (21:07)
[2020-05-01] MEDS: SUMAtriptan SUCCINATE 25 MG TAB PO PRN (21:07)
[2020-05-02 06:45] VITALS: BP 130/68
[2020-05-02] MEDS: CARIPRAZINE 1.5MG CAPSULE (VRAYLAR) PO SCH (08:22)
[2020-05-02] MEDS: MONTELUKAST 10 MG TAB PO SCH (08:22)
[2020-05-02] MEDS: LITHIUM CARBONATE 600 MG CAP PO SCH (08:22)
[2020-05-02] MEDS: ACETAMINOPHEN TAB 650MG DOSE (2X325MG) PO PRN (08:22)
[2020-05-02] MEDS: NICOTINE 14 MG/24 HR TRANSDERMAL TD SCH (08:23)
[2020-05-02 16:16] VITALS: BP 137/87
[2020-05-02] MEDS: LITHIUM CARBONATE 150 MG CAP PO SCH (20:11)
[2020-05-02] MEDS: PRAZOSIN 1 MG CAP PO SCH (20:11)
[2020-05-03 06:20] VITALS: BP 140/75
[2020-05-03] MEDS: IBUPROFEN 600MG TAB PO PRN (07:46)
[2020-05-03] MEDS: LITHIUM CARBONATE 600 MG CAP PO SCH (08:23)
[2020-05-03] MEDS: SUMAtriptan SUCCINATE 25 MG TAB PO PRN (08:23)
[2020-05-03] MEDS: MONTELUKAST 10 MG TAB PO SCH (08:23)
[2020-05-03] MEDS: CARIPRAZINE 1.5MG CAPSULE (VRAYLAR) PO SCH (08:23)
[2020-05-03] MEDS: NICOTINE 14 MG/24 HR TRANSDERMAL TD SCH (08:24)
[2020-05-03] MEDS: ACETAMINOPHEN TAB 650MG DOSE (2X325MG) PO PRN (15:31)
[2020-05-03 16:13] VITALS: BP 135/60
[2020-05-03] MEDS: PRAZOSIN 1 MG CAP PO SCH (20:29)
[2020-05-03] MEDS: LITHIUM CARBONATE 150 MG CAP PO SCH (20:29)
[2020-05-04 06:30] VITALS: BP 137/77
[2020-05-04] MEDS: MONTELUKAST 10 MG TAB PO SCH (09:09)
[2020-05-04] MEDS: IBUPROFEN 600MG TAB PO PRN (09:09)
[2020-05-04] MEDS: LITHIUM CARBONATE 600 MG CAP PO SCH (09:09)
[2020-05-04] MEDS: CARIPRAZINE 1.5MG CAPSULE (VRAYLAR) PO SCH (09:09)
[2020-05-04] MEDS: NICOTINE 14 MG/24 HR TRANSDERMAL TD SCH (09:11)
--- NOTE | 2020-05-04 10:33 | MHIPNPDOC ---
[facility] Progress Note Progress Note DATE OF SERVICE: 05/04/20 HISTORY: the patient is met with today, she has been doing quite well on the new medication without any significant side effects. She's been amenable, reading, and generally in behavioral control. She poured she feels much improved and is interested in potentially being discharged. Nursing staff report a significant improvement in behavior. VITAL SIGNS: See below. NEW TEST RESULTS: lithium is 0.42 CURRENT MEDICATIONS: See below. MENTAL STATUS EXAMINATION: General: [Well dressed with good hygiene] Speech: Less pressured Thought processes: Improved Thought content: Future orientated Abstract reasoning, and computation: Impaired Description of associations: Impaired Description of abnormal or psychotic thoughts: Denies SI or HI today, denies auditory or visual hallucinations Judgment: Improved Insight: Improved Orientation: [Alert and orientated 3] Recent and remote memory: [Intact] Attention span and concentration: Much more focused Fund of knowledge: [Adequate] Mood: "great" Affect: More euthymic DIAGNOSES: 1. Bipolar disorder, type I most recent episode manic. 2. Cannabis use disorder. 3. PTSD, antisocial personality disorder. ASSESSMENT: will continue medication at current dose, plan for discharge. However, AOT referral would be most ideal given her frequent re-admissions MANAGEMENT PLAN: Continue lithium to 600 mg daily/150 mg nightly Continue Vrylar 1.5mg daily AOT referral in process TIME SPENT: 15 minutes. Vital Signs Vital Signs Date Time Temp Pulse Resp B/P (MAP) Pulse Ox O2 Delivery O2 Flow Rate FiO2 05/04/20 06:30 98.7 102 18 137/77 (97) 99 Room Air Current Medications Current Medications Medications (Trade) Dose Ordered Sig/Sima Route PRN Reason Start Time Stop Time Status Last Admin Dose Admin Acetaminophen (Tylenol Tab) 650 mg Q6HP PRN PO HEADACHE or DISCOMFORT 04/14/20 15:15 05/03/20 15:31 Al Hydrox/Mg Hydrox/Simethicone (Mylanta) 30 ml Q4HP PRN PO HEARTBURN/INDIGESTION 04/14/20 15:15 Amitriptyline HCl (Elavil) 20 mg QHS PO 04/14/20 21:00 04/20/20 12:27 DC 04/19/20 21:40 Cariprazine (Vraylar) 1.5 mg DAILY PO 04/30/20 09:00 05/04/20 09:09 Diphenhydramine HCl (Benadryl) 50 mg STAT STAT IM 04/20/20 13:52 04/20/20 13:57 DC 04/20/20 14:03 Fluticasone Propionate (Flonase 0.05% Nasal [place]) 1 spray BIDP PRN NARES CONGESTION 04/14/20 22:00 Haloperidol (Haldol) 5 mg STAT STAT IM 04/15/20 05:54 04/15/20 05:56 DC 04/15/20 06:01 Haloperidol (Haldol) 10 mg STAT STAT IM 04/20/20 13:52 04/20/20 13:57 DC 04/20/20 14:03 Home Med (Med Rec Complete!) ASDIRECTED XX 04/14/20 20:30 04/14/20 20:30 DC Hydroxyzine HCl (Atarax) 50 mg BIDP PRN PO ANXIETY/AGITATION 04/14/20 22:00 04/16/20 13:25 DC 04/16/20 08:52 Hydroxyzine HCl (Atarax) 50 mg Q4H PRN PO ANXIETY/AGITATION 04/16/20 13:30 05/01/20 18:57 Ibuprofen (Advil) 600 mg DAILY PRN PO HEADACHE 04/16/20 11:30 05/04/20 09:09 Ibuprofen (Advil) 600 mg Q6HP PRN PO MODERATE PAIN (PS 5-7) 04/16/20 10:45 UNV [place] Carbonate ([place] Carbonate) 150 mg BID PO 04/19/20 09:00 04/20/20 12:27 DC 04/20/20 08:05 [place] Carbonate ([place] Carbonate) 150 mg QHS PO 04/28/20 21:00 04/28/20 21:29 DC [place] Carbonate ([place] Carbonate) 150 mg QHS PO 04/28/20 21:00 05/03/20 20:29 [place] Carbonate ([place] Carbonate) 300 mg QAM PO 04/21/20 09:00 04/23/20 14:26 DC 04/23/20 08:20 [place] Carbonate ([place] Carbonate) 500 mg QAM PO 04/24/20 09:00 04/23/20 14:47 DC [place] Carbonate ([place] Carbonate) 600 mg QAM PO 04/24/20 09:00 05/04/20 09:09 Lorazepam (Ativan) 1 mg STAT STAT IM 04/15/20 05:54 04/15/20 05:56 DC 04/15/20 06:01 Lorazepam (Ativan) 2 mg STAT STAT IM 04/20/20 13:52 04/20/20 13:57 DC 04/20/20 14:03 Lurasidone HCl (Latuda) 20 mg DAILY@18 PO 04/16/20 18:00 04/17/20 11:58 DC 04/16/20 17:04 Lurasidone HCl (Latuda) 40 mg DAILY@18 PO 04/17/20 18:00 04/19/20 13:07 DC 04/17/20 17:55 Magnesium Hydroxide (Milk Of Magnesia) 30 ml DAILYPRN PRN PO CONSTIPATION 04/14/20 15:15 Montelukast Sodium (Singulair) 10 mg DAILY PO 04/15/20 09:00 05/04/20 09:09 Nicotine (Nicoderm Cq 14mg) 1 patch DAILY TD 04/15/20 09:00 05/04/20 09:11 Olanzapine (ZyPREXA ZYDIS) 10 mg Q4HP PRN PO AGITATION 04/14/20 15:15 04/30/20 20:15 Prazosin HCl (Minipress) 1 mg QHS PO 04/17/20 21:00 05/03/20 20:29 Propranolol HCl (Inderal La) 60 mg QHS PO 04/14/20 21:00 04/24/20 09:57 DC 04/23/20 20:18 Sumatriptan Succinate (Imitrex) 25 mg DAILYPRN PRN PO migraine 04/24/20 10:45 05/03/20 08:23 Trazodone HCl (Desyrel) 50 mg QHSP PRN PO INSOMNIA 04/14/20 15:15 04/25/20 22:00 Allergies Coded Allergies: codeine (Verified Allergy, Intermediate, HIVES, 04/02/20) hydrocodone (Verified Allergy, Intermediate, HIVES ITCHING, 04/02/20) latex (Verified Allergy, Intermediate, HIVES ITCHING, 04/02/20) Dust (Verified Allergy, Unknown, 04/02/20) POLLEN (Verified Allergy, Unknown, 10/29/20) aspirin (Verified Adverse Reaction, Intermediate, ITP, 04/02/20) ibuprofen (Verified Adverse Reaction, Intermediate, ITP, 04/03/20) PATIENT IS LIMITED TO 1+600MG OR LESS A DAY PER NEUROLOGY (DR Ken ZUNIGA) DAGO GAMEZ DO May 04, 2020 10:33
[2020-05-04 18:00] VITALS: BP 144/74
[2020-05-04] MEDS: LITHIUM CARBONATE 150 MG CAP PO SCH (20:49)
[2020-05-04] MEDS: PRAZOSIN 1 MG CAP PO SCH (20:50)
[2020-05-04] MEDS: ACETAMINOPHEN TAB 650MG DOSE (2X325MG) PO PRN (20:50)
[2020-05-04] MEDS: SUMAtriptan SUCCINATE 25 MG TAB PO PRN (20:50)
[2020-05-05 06:29] VITALS: BP 140/72
[2020-05-05] MEDS: CARIPRAZINE 1.5MG CAPSULE (VRAYLAR) PO SCH (08:32)
[2020-05-05] MEDS: MONTELUKAST 10 MG TAB PO SCH (08:32)
[2020-05-05] MEDS: LITHIUM CARBONATE 600 MG CAP PO SCH (08:33)
[2020-05-05] MEDS: NICOTINE 14 MG/24 HR TRANSDERMAL TD SCH (08:33)
--- NOTE | 2020-05-05 10:42 | MHIPNPDOC ---
[facility] Progress Note Progress Note DATE OF SERVICE: 05/05/20 HISTORY: the patient is met with today, she reports feeling much improved and that she feels that she has recently level stability. She is done well over the weekend without any major problems and continues to make progress attending groups without any significant irritation or irritability. She reports that she is open to the AOT referral and it seems to have developed a much better insight into attending to her mental health VITAL SIGNS: See below. NEW TEST RESULTS: lithium is 0.42 CURRENT MEDICATIONS: See below. MENTAL STATUS EXAMINATION: General: [Well dressed with good hygiene] Speech: fluid Thought processes: Improved Thought content: Future orientated Abstract reasoning, and computation: Impaired Description of associations: Impaired Description of abnormal or psychotic thoughts: Denies SI or HI today, denies auditory or visual hallucinations Judgment: fair Insight: fair Orientation: [Alert and orientated 3] Recent and remote memory: [Intact] Attention span and concentration: intact Fund of knowledge: [Adequate] Mood: "great" Affect: euthymic DIAGNOSES: 1. Bipolar disorder, type I most recent episode manic. 2. Cannabis use disorder. 3. PTSD, antisocial personality disorder. ASSESSMENT: will triage for discharge if she remains stable overnight MANAGEMENT PLAN: Continue lithium to 600 mg daily/150 mg nightly, lithium likely mildly low secondary to hitting steady-state Continue Vrylar 1.5mg daily AOT referral in process TIME SPENT: 15 minutes. Vital Signs Vital Signs Date Time Temp Pulse Resp B/P (MAP) Pulse Ox O2 Delivery O2 Flow Rate FiO2 05/05/20 06:29 99.3 86 18 140/72 (94) 05/04/20 06:30 99 Room Air Current Medications Current Medications Medications (Trade) Dose Ordered Sig/Sima Route PRN Reason Start Time Stop Time Status Last Admin Dose Admin Acetaminophen (Tylenol Tab) 650 mg Q6HP PRN PO HEADACHE or DISCOMFORT 04/14/20 15:15 05/04/20 20:50 Al Hydrox/Mg Hydrox/Simethicone (Mylanta) 30 ml Q4HP PRN PO HEARTBURN/INDIGESTION 04/14/20 15:15 Amitriptyline HCl (Elavil) 20 mg QHS PO 04/14/20 21:00 04/20/20 12:27 DC 04/19/20 21:40 Cariprazine (Vraylar) 1.5 mg DAILY PO 04/30/20 09:00 05/05/20 08:32 Diphenhydramine HCl (Benadryl) 50 mg STAT STAT IM 04/20/20 13:52 04/20/20 13:57 DC 04/20/20 14:03 Fluticasone Propionate (Flonase 0.05% Nasal [place]) 1 spray BIDP PRN NARES CONGESTION 04/14/20 22:00 Haloperidol (Haldol) 5 mg STAT STAT IM 04/15/20 05:54 04/15/20 05:56 DC 04/15/20 06:01 Haloperidol (Haldol) 10 mg STAT STAT IM 04/20/20 13:52 04/20/20 13:57 DC 04/20/20 14:03 Home Med (Med Rec Complete!) ASDIRECTED XX 04/14/20 20:30 04/14/20 20:30 DC Hydroxyzine HCl (Atarax) 50 mg BIDP PRN PO ANXIETY/AGITATION 04/14/20 22:00 04/16/20 13:25 DC 04/16/20 08:52 Hydroxyzine HCl (Atarax) 50 mg Q4H PRN PO ANXIETY/AGITATION 04/16/20 13:30 05/01/20 18:57 Ibuprofen (Advil) 600 mg DAILY PRN PO HEADACHE 04/16/20 11:30 05/04/20 09:09 Ibuprofen (Advil) 600 mg Q6HP PRN PO MODERATE PAIN (PS 5-7) 04/16/20 10:45 UNV [place] Carbonate ([place] Carbonate) 150 mg BID PO 04/19/20 09:00 04/20/20 12:27 DC 04/20/20 08:05 [place] Carbonate ([place] Carbonate) 150 mg QHS PO 04/28/20 21:00 04/28/20 21:29 DC [place] Carbonate ([place] Carbonate) 150 mg QHS PO 04/28/20 21:00 05/04/20 20:49 [place] Carbonate ([place] Carbonate) 300 mg QAM PO 04/21/20 09:00 04/23/20 14:26 DC 04/23/20 08:20 [place] Carbonate ([place] Carbonate) 500 mg QAM PO 04/24/20 09:00 04/23/20 14:47 DC [place] Carbonate ([place] Carbonate) 600 mg QAM PO 04/24/20 09:00 05/05/20 08:33 Lorazepam (Ativan) 1 mg STAT STAT IM 04/15/20 05:54 04/15/20 05:56 DC 04/15/20 06:01 Lorazepam (Ativan) 2 mg STAT STAT IM 04/20/20 13:52 04/20/20 13:57 DC 04/20/20 14:03 Lurasidone HCl (Latuda) 20 mg DAILY@18 PO 04/16/20 18:00 04/17/20 11:58 DC 04/16/20 17:04 Lurasidone HCl (Latuda) 40 mg DAILY@18 PO 04/17/20 18:00 04/19/20 13:07 DC 04/17/20 17:55 Magnesium Hydroxide (Milk Of Magnesia) 30 ml DAILYPRN PRN PO CONSTIPATION 04/14/20 15:15 Montelukast Sodium (Singulair) 10 mg DAILY PO 04/15/20 09:00 05/05/20 08:32 Nicotine (Nicoderm Cq 14mg) 1 patch DAILY TD 04/15/20 09:00 05/05/20 08:33 Olanzapine (ZyPREXA ZYDIS) 10 mg Q4HP PRN PO AGITATION 04/14/20 15:15 04/30/20 20:15 Prazosin HCl (Minipress) 1 mg QHS PO 04/17/20 21:00 05/04/20 20:50 Propranolol HCl (Inderal La) 60 mg QHS PO 04/14/20 21:00 04/24/20 09:57 DC 04/23/20 20:18 Sumatriptan Succinate (Imitrex) 25 mg DAILYPRN PRN PO migraine 04/24/20 10:45 05/04/20 20:50 Trazodone HCl (Desyrel) 50 mg QHSP PRN PO INSOMNIA 04/14/20 15:15 04/25/20 22:00 Allergies Coded Allergies: codeine (Verified Allergy, Intermediate, HIVES, 04/02/20) hydrocodone (Verified Allergy, Intermediate, HIVES ITCHING, 04/02/20) latex (Verified Allergy, Intermediate, HIVES ITCHING, 04/02/20) Dust (Verified Allergy, Unknown, 04/02/20) POLLEN (Verified Allergy, Unknown, 04/02/20) aspirin (Verified Adverse Reaction, Intermediate, ITP, 04/02/20) ibuprofen (Verified Adverse Reaction, Intermediate, ITP, 04/03/20) PATIENT IS LIMITED TO 1+600MG OR LESS A DAY PER NEUROLOGY (DR Ken ZUNIGA) DAGO GAMEZ DO May 05, 2020 10:42
[2020-05-05] MEDS: IBUPROFEN 600MG TAB PO PRN (11:44)
[2020-05-05 18:00] VITALS: BP 144/83
[2020-05-05 21:07] VITALS: BP 120/86
[2020-05-05] MEDS: PRAZOSIN 1 MG CAP PO SCH (21:07)
[2020-05-05] MEDS: LITHIUM CARBONATE 150 MG CAP PO SCH (21:08)
[2020-05-06 06:36] VITALS: BP 135/72
[2020-05-06] MEDS: CARIPRAZINE 1.5MG CAPSULE (VRAYLAR) PO SCH (08:12)
[2020-05-06] MEDS: MONTELUKAST 10 MG TAB PO SCH (08:12)
[2020-05-06] MEDS: LITHIUM CARBONATE 600 MG CAP PO SCH (08:13)
[2020-05-06] MEDS: NICOTINE 14 MG/24 HR TRANSDERMAL TD SCH (08:13)
[2020-05-06] MEDS: IBUPROFEN 600MG TAB PO PRN (08:13)
--- NOTE | 2020-05-06 10:02 | MHDSPDOC ---
[facility] Discharge Summary Discharge Summary DATE OF ADMISSION: Apr 14, 2020 at 15:15 DATE OF DISCHARGE: May 06, 2020 at 11:28 DISCHARGE DIAGNOSES: Bipolar disorder, type I cannabis use disorder CONSULTANTS INVOLVED: hospitalist, recommended outpatient endocrinology for thyroid problems REASON FOR ADMISSION & TREATMENT AND PROGRESS ON THE UNIT : . The patient was readmitted to the inpatient unit with pressured speech and bizarre ideation, she had been ambivalent about staying but was retained on a court hearing. The patient eventually was open to trying various medications starting on lithium increasing up to 600 Milgram's in the morning with 150 mg in the night, her lithium level was moderately low, however she is not make significant progress her irritability and pressured speech queued me that perhaps she had a mixed episode, she was tried on vrylar 1.5 mg daily, with impressive results, her concentration improved so much so that she was able to read whole novels she was no longer irritable became well behaved and engaged on the unit with fair Insight by the end. She did very well and tolerated the medications well, she was additionally referred for AOT as she would meet the criteria and would help reduce the chances of her getting rebid she was very open to this demonstrating her improvement. DISCHARGE ASSESSMENT[improved] Legal status considerations: The patient at the time of discharge did not meet criteria for involuntary admission/extension due to having a [normal] mental status exam, [fair] insight into the situation, They are engaged in the discharge process, as well as being friendly and amenable in behavioral control and havent been engaging in any observed concerning behavior or ideation recently. They decline voluntary extension/admission at this time and must be discharged in good shahid, as Im unable to make a case for holding the patient against their will. They may have historical risk factors of admissions and other interactions with psychiatry however, those are not modifiable from a clinical perspective. The patient will need to be discharged in good shahid. MENTAL STATUS EXAMINATION ON DISCHARGE: [General: Well dressed with good hygiene Speech: Spontaneous and fluid Thought processes: Linear and logical Thought content: Future orientated Abstract reasoning, and computation: Intact Description of associations: Intact Description of abnormal or psychotic thoughts:Denies any suicidal or homicidal ideation. Denies any auditory or visual hallucinations. Does not appear to be responding to internal stimuli. Does not appear to be endorsing any bizarre or paranoid ideation. Judgment: fair Insight: fair Orientation: Alert and orientated 3 Recent and remote memory: Intact Attention span and concentration: Intact Fund of knowledge: Adequate Mood: "okay" Affect: Euthymic with a full range] PLAN/FOLLOWUP ARRANGEMENTS: Follow up appointments made (PCP and MH in 5 days of D/C date) and safety plan completed. Safety Planning aspects completed prior to discharge [Medication supplies limited to 7 days with 4 refills to prevent accumulation to OD] [RN reviewed crisis hotline information and other aspects to empower patient to access care in interim before next appointment.] The amount of time spent in the coordination of care for this patient was approximately 30 minutes. Vital Signs/I&Os Vital Signs Date Time Temp Pulse Resp B/P (MAP) Pulse Ox O2 Delivery O2 Flow Rate FiO2 05/06/20 06:36 98.5 95 14 135/72 (93) 05/04/20 06:30 99 Room Air Medications Scheduled Cariprazine HCl (Vraylar) 1.5 Mg Capsule, 1.5 MG PO DAILY for houghts for 7 Days, #7 Ergocalciferol (Vitamin D2) (Vitamin D2) 50,000 Units Cap, 50,000 UNITS PO Q2WK, (Reported) Godfrey Carbonate (Godfrey Carbonate) 600 Mg Capsule, 600 MG PO QAM for mood for 7 Days, #7 Godfrey Carbonate (Godfrey Carbonate) 150 Mg Capsule, 150 MG PO QHS for mood for 7 Days, #7 Montelukast Sodium (Montelukast Sodium) 10 Mg Tablet, 10 MG PO DAILY, (Reported) Nicotine (Nicotine Patch) 14 Mg Patch.td24, 1 PATCH TD DAILY for tobacco for 30 Days, #30 Prazosin HCl (Minipress) 1 Mg Capsule, 1 MG PO QHS for nightmares for 7 Days, #7 No122/Iron/Folic Acid ( Multi Tablet) 1 Each Tablet, 1 TAB PO DAILY, (Reported) Propranolol HCl (Propranolol HCl ER) 60 Mg Cap.sa.24h, 60 MG PO QHS, (Reported) Scheduled PRN Fluticasone Propionate (Fluticasone Propionate) 16 Gm Kittery.susp, 1 SPRAY NARES BID PRN for CONGESTION, (Reported) Sumatriptan Succinate (Sumatriptan Succinate) 4 Mg/0.5 Ml Pen.injctr, 0.5 ML DAILY PRN for MIGRAINE, (Reported) Allergies Coded Allergies: codeine (Verified Allergy, Intermediate, HIVES, 04/02/20) hydrocodone (Verified Allergy, Intermediate, HIVES ITCHING, 04/02/20) latex (Verified Allergy, Intermediate, HIVES ITCHING, 04/02/20) Dust (Verified Allergy, Unknown, 04/02/20) POLLEN (Verified Allergy, Unknown, 04/02/20) aspirin (Verified Adverse Reaction, Intermediate, ITP, 04/02/20) ibuprofen (Verified Adverse Reaction, Intermediate, ITP, 04/03/20) PATIENT IS LIMITED TO 1+600MG OR LESS A DAY PER NEUROLOGY (DR Ken ZUNIGA) DAGO GAMEZ DO May 06, 2020 10:02
[2020-05-06] MEDS ORDERED: VRAY1.5C PO (10:21)
[2020-05-06] MEDS ORDERED: NICO14PA TD (10:21)
[2020-05-06] MEDS ORDERED: MINI1CAP PO (10:21)
[2020-05-06] MEDS ORDERED: LITH150C PO (10:21)
[2020-05-06] MEDS ORDERED: LITH600C PO (10:21)
== END 2020-05-06 11:28 | disposition home or self-care (01) | DRG 753 ==
LOC: M ED 12:26 → M ED INP 15:15 → M PSY 21:40
PROVIDERS: ADMIT Psychiatry & Neurology Addiction Medicine; ATTEND Psychiatry & Neurology Addiction Medicine
DX: F31.9 Bipolar disorder, unspecified (principal); E05.90 Thyrotoxicosis, unspecified without thyrotoxic crisis or storm; F12.90 Cannabis use, unspecified, uncomplicated; Z79.899 Other long term (current) drug therapy; Z91.040 Latex allergy status; Z88.5 Allergy status to narcotic agent; Z88.6 Allergy status to analgesic agent; Z88.8 Allergy status to other drugs, medicaments and biological substances; G43.909 Migraine, unspecified, not intractable, without status migrainosus; F41.9 Anxiety disorder, unspecified

== ENCOUNTER 2021-03-12 13:09 | Inpatient (IN) | payer MEDICAID, OTHER ==
[~2021-03-12] VITALS: Ht 160 cm; Wt 60.8 kg
[~2021-03-12 13:09] MED LIST changes: -AMIT10TA PO; +AMIT10TA7 PO; +ERGO500029 PO; +ESCI10TA16 PO; -ESCI10TA2 PO; +MAXA10TA14 PO; +MONT10TA10 PO; -MONT5TAB2 PO; +NICO14PA TD; -OLAN15TA PO; +OLAN15TA13 PO; -VITA50005 PO; +VRAY1.5C PO
[2021-03-12] MEDS ORDERED: EMGA120I (14:27)
[2021-03-12 14:59] LABS: HEMATOCRIT 44.1 % (36.0-47.0); HEMOGLOBIN 14.4 g/dl (12.0-15.5); MEAN CORPUSCULAR HEMOGLOBIN 30.8 pg (27.0-33.0); MEAN CORPUSCULAR HGB CONC 32.7 g/dl (32.0-36.5); MEAN CORPUSCULAR VOLUME 94.4 fl (80.0-96.0); PLATELET COUNT, AUTOMATED 356 10^3/uL (150-450); RED BLOOD COUNT 4.67 10^6/uL (4.00-5.40)
[2021-03-12 15:25] LABS: HCG, SERUM QUALITATIVE NEGATIVE (NEGATIVE); RSV AMPLIFICATION NEGATIVE (NEGATIVE)
[2021-03-12 15:34] LABS: ACETAMINOPHEN LEVEL < 2.0 UG/ML (10.0-30.0); ALBUMIN 4.4 GM/DL (3.2-5.2); ALT/SGPT 23 U/L (12-78); BILIRUBIN,DIRECT 0.2 MG/DL (0.0-0.2); BILIRUBIN,TOTAL 0.7 MG/DL (0.2-1.0); BLOOD UREA NITROGEN 18 MG/DL (7-18); CALCIUM LEVEL 10.2 MG/DL (8.5-10.1); CARBON DIOXIDE LEVEL 26 MEQ/L (21-32); CHLORIDE LEVEL 107 MEQ/L (98-107); CREATININE FOR GFR 1.05 MG/DL (0.55-1.30); ETHYL ALCOHOL (ETHANOL) < 0.003 % (0.000-0.010); GLOMERULAR FILTRATION RATE > 60.0 (>60); GLUCOSE, FASTING 96 MG/DL (70-100); POTASSIUM SERUM 3.8 MEQ/L (3.5-5.1); SALICYLATE LEVEL 5.4 MG/DL (5.0-30.0); SODIUM LEVEL 141 MEQ/L (136-145); THYROID STIMULATING HORMONE 0.283 uIU/ML (0.358-3.740); TOTAL PROTEIN 8.1 GM/DL (6.4-8.2)
[2021-03-12 15:40] LABS: AMPHETAMINES LEVEL URINE NEGATIVE (NEGATIVE); BARBITURATES URINE NEGATIVE (NEGATIVE); BENZODIAZEPINES URINE NEGATIVE (NEGATIVE); CANNABINOIDS URINE POSITIVE (NEGATIVE); COCAINE METABOLITE URINE POSITIVE (NEGATIVE); METHADONE URINE NEGATIVE (NEGATIVE); OPIATES URINE NEGATIVE (NEGATIVE); PHENCYCLIDINE URINE NEGATIVE (NEGATIVE)
[2021-03-12] MEDS ORDERED: LORazepam 1 MG TAB PO ONE (15:50)
[2021-03-12] MEDS ORDERED: VITA1TAB35 PO (19:03)
[2021-03-12] MEDS ORDERED: MAXA10TA15 PO (19:03)
[2021-03-12] MEDS ORDERED: IBUP-1720 PO (19:03)
[2021-03-12] MEDS ORDERED: VRAY1.5C PO (19:03)
[2021-03-12] MEDS ORDERED: EMGA120I SC (19:03)
[2021-03-12] MEDS ORDERED: HOME MED LIST COMPLETE! XX SCH (19:05)
[2021-03-12] MEDS ORDERED: MAALOX 30 ML SUSP *UDC PO PRN (20:50)
[2021-03-12] MEDS ORDERED: traZODone 50 MG TAB PO PRN (20:50)
[2021-03-12] MEDS ORDERED: MOM 30ML SUSPENSION UDC PO PRN (20:50)
[2021-03-12] MEDS: OLANZapine ORAL DISINTEGRATING TAB 5MG PO PRN (21:40)
[2021-03-12 22:35] VITALS: BP 132/67
--- NOTE | 2021-03-13 02:14 | IPNPDOC ---
Text Note Date of Service 03/12/212229 NOTE Significant event code 25 initiated. Patient was reportedly beginning to behaviorally escalate becoming verbally and positionally aggressive-raising her fingers to staff pointing, escalating voice and physician herself closer to staff. Patient had reportedly began cussing when staff during the intake process were required to collect patient's belongings due to safety protocols and patient became very heated. De- escalation techniques were implemented and patient was able to express her vicente rn regarding her grandmother's ashes in a necklace being taken. Explanations given regarding the safety protocols and the methods to keep her personal belongings secure. Patient was assured her belongings would be kept safe by security and security himself was able to explain the process. Patient was able to de-escalate her behaviors with explanation and reassurance and code 25 was canceled. Patient then proceeded to complete intake process per unit. medical staff specialist to notify psychiatrist on-call for further recommendations. VS,Fishbone, I+O VS, Fishbone, I+O Laboratory Tests 03/12/21 14:29 Vital Signs Date Time Temp Pulse Resp B/P (MAP) Pulse Ox O2 Delivery O2 Flow Rate FiO2 03/12/21 22:35 96.9 75 18 132/67 (88) 100 Room Air MIKA MURPHY NP Mar 13, 2021 02:14
[2021-03-13] MEDS: ACETAMINOPHEN TAB 650MG DOSE (2X325MG) PO PRN (08:10)
[2021-03-13] MEDS ORDERED: INFLUENZA QUADRIVALENT PF VACCINE 0.5ML SYRINGE IM ONE (09:00)
[2021-03-13] MEDS ORDERED: metroNIDAZOLE 70 GM VAGINAL GEL PV SCH (09:00)
--- NOTE | 2021-03-13 10:00 | MHHPEPDOC ---
General Date Of Admission: Mar 13, 2021 Legal Status: 9.39 Chief Complaint They gave me crystal meth instead of cocaine. ". History of Present Illness HISTORY OF THE PRESENT ILLNESS: Patient is a 35 -year-old , female, who who came by EMS, patient has been psychotic in the ER. During my evaluation on the unit she is grandiose, agitated, easily irritable and angry at times patient. Continues to have paranoid delusions, reports a gang called blood is after her to hurt her, she reports that she is affiliated to a gang called [employer]. Her mood is labile, had crying spells. She was suspicious was carrying her belongings in a bag during my evaluation. She reports she is on cariprazine 01.5 mg but wants it to be raised. She reports she is also on lithium 750 mg daily. Reports her stressors are financial, and her uncle is suffering from Covid 19. ED report Pt brought in via EMS. Pt originally called reporting medical concerns and stated she had COVID, but then ended up expressing si and talking about how people are trying to kill her, resulting in police placing pt on a 9.41. * Pt is visibly psychotic. Pt is labile, unable to focus or concentrate, and could not complete the majorty of screenings or questions. Pt denies si/self-injury and did not make any statements that would incline tw to believe she is suicidal. Pt mitra hi, however pt made several statements while talking with TW about how people "have something coming for them" and would make strange hand motions to signal pushing someone down or getting rid of them. Pt also talked about gangs such as bloods and crips and talked about how the gang she is in has her back and will kill for her, and made threats about those in the opposite gang. Pt appears to be having ah/vh. She was responding to stimuli throughout [facility], seeing things and talking to people who aren't there, answering questions no one asked, believe she was observing family and friends, would have epiphanies about certain things in her life and talk about how she just saw or heard information that led her to these conclusions. Pt also talked about how she kept seeing the lb and how it is red and on fire everywhere, not blue anymore, and pt would continuously look up to the celiing stating she was seeing this at that time. Pt unable to give TW any concrete information as to how she ended up in the ED today, or what is going on in pt's life as far as stressors. Pt frequently talked about sexual relations, fixated on "only fans", "back page" and prostitution, accusing several different people of these actions by name, as if TW knew who the poeple pt was talking about were. pt also would often break out in song and start singing one song, quickly change and lead into another song, then stop and change her topic of conversation and mood drastically. At one point, pt randomly started hitting the air with her fist reapeatedly as if she was excited and stated "Oh great! Dionne got good news on [facility]!" TW questioned how she just found this information out, and pt then stated she had an "out of body experience", and went on to say she has been having a lot of them lately when suddenly she slapped her hand on her bedside table hard and stated "[facility]CH I did PCP last night!" Pt then looked in a different direction and started pointing at a person she believed to be there stating "Don't think you're slick putting me in here when I got upcoming charges. I've got it coming for you." Pt then turned back to TW and stated she would like to be discharged home to go relax, eat dinner, and take a bubble bath. Pt was able to answer a few questions for TW, stating she seeks outpatient with Sara at [facility] and was last there on monday. Pt states she lives alone in [place] and has three children that her mother has custody of. Pt admits vaping and smoking marijuana, and denies any other drug use for the most part, except she did report recently using cocaine "last weekend", at first stating she'd put it on her finger and lick it repeatedly because she would "never sniff it" then started talking about how she would sniff it off of her finger and it would burn her nose. Pt was otherwise not able to provide TW with consistent or accurate information, and was clearly experiencing delusions, and visual and auditory hallucinations. . Psychiatric Review of Systems Depression (2 or more weeks): depressed mood Su (4 or more days of): irritable/elevated mood, grandiosity, talkativity, pressured, distractibility Psychosis: delusions, paranoia PTSD: denies, other Anxiety: other Past Psychiatric History Previous Psychiatric Diagnosis: Bipolar disorder . Previous Psychiatric Admissions: Multiple . Suicide Attempts: Multiple . Psychiatric Follow-up: . Psychiatric medications: . Family Medical/Psychiatric HX Medical Problems ITP, hypothyroidism Addiction History cocaine Social History Childhood: Born in [place], raised in . Abuse/Trauma: Yes . Current Living Situation: Lives by herself . Education: . Employment: . Social Support: Questionable . Legal: None . Marital: once and . Mental Status Examination General Appearance: well groomed, appears stated age Build: average Demeanor: hostile, mistrustful Eye Contact: intense Activity: agitated Behavior: cooperative Speech: pressured Mood: irritable, hypomanic Affect: labile Thought Content (Delusions): grandiose Thought Content (Aggressive): none reported Perception (Hallucinations): none reported Perception (Other): none reported Cognition (Impairment of): none reported Cognition(Intelligence Est.): average Oriented: Awake, Alert, Oriented times three Insight: poor Judgment: Poor Psychosis: Psychotic Perceptions Diagnoses Bipolar 1 disorder manic with psychotic features Cocaine use disorder Cannabis use disorder ITP Hypothyroidism A-FIB/CHADSVASC A-FIB History Current/History of A-Fib/PAF?: No Current PO Anticoag Therapy: No Assessment Patient has long history of bipolar disorder and substance use disorder, she was being helped by cariprazine, and lithium I would like to start her back on. Initial Treatment Plan 1. Patient was admitted on a [9.39] status. 2. Complete history was obtained. 3. With patients permission, family will be contacted and database will be expanded. 4. Patients medication regimen will be reviewed and changed accordingly. 5. Patient will be provided with protected environment. 6. Patient will be treated with individual, group, and milieu therapies. 7. Patient will receive supportive psych-education. 8. Discharge planning will commence immediately. 9. Outpatient follow-up treatment will be strongly recommended. 10. The initial treatment plan will focus initially on: * Depression. * Risk for suicide. ESTIMATED LENGTH OF STAY: - DAYS. TIME SPENT COUNSELING AND COORDINATING INITIAL CARE: minutes. Vital Signs Vital Signs Date Time Temp Pulse Resp B/P (MAP) Pulse Ox O2 Delivery O2 Flow Rate FiO2 03/12/21 22:35 96.9 75 18 132/67 (88) 100 Room Air Laboratory Data 24H Labs Laboratory Tests 2 03/12/21 13:36: Urine Opiates Screen NEGATIVE, Urine Methadone Screen NEGATIVE, Urine Barbiturates Screen NEGATIVE, Urine Phencyclidine Screen NEGATIVE, Urine Amphetamines Screen NEGATIVE, Urine Benzodiazepines Screen NEGATIVE, Urine Cocaine Metabolite Screen POSITIVEH, Urine Cannabinoids Screen POSITIVEH 03/12/21 14:29: Nucleated Red Blood Cells % (auto) 0.0, Anion Gap 8, Glomerular Filtration Rate > 60.0, Calcium Level 10.2H, Total Bilirubin 0.7, Direct Bilirubin 0.2, Aspartate Amino Transf (AST/SGOT) 19, Alanine Aminotransferase (ALT/SGPT) 23, Alkaline Phosphatase 83, Total Protein 8.1, Albumin 4.4, Albumin/Globulin Ratio 1.2, Thyroid Stimulating Hormone (TSH) 0.283L, Human Chorionic Gonadotropin, Qual NEGATIVE, Salicylates Level 5.4, Acetaminophen Level < 2.0L, [place] Level 0.34L, Ethyl Alcohol Level < 0.003, Coronavirus (COVID-19)(PCR) NEGATIVE, I nfluenza Type A (RT-PCR) NEGATIVE, Influenza Type B (RT-PCR) NEGATIVE, Respiratory Syncytial Virus (PCR) NEGATIVE CBC/BMP Laboratory Tests 03/12/21 14:29 Medications Scheduled Cariprazine HCl (Vraylar) 1.5 Mg Capsule, 1.5 MG PO DAILY, (Reported) Cyanocobalamin (Vitamin B-12) (Vitamin B-12) 100 Mcg Tablet, 100 MCG PO DAILY, (Reported) Galcanezumab-Gnlm (Emgality Pen) 120 Mg/1 Ml Pen.injctr, 120 MG SC QMONTH, (Reported) Scheduled PRN Rizatriptan Benzoate (Maxalt Edge Burnisher) 10 Mg Tab.rapdis, 10 MG PO BID PRN for MIGRAINE, (Reported) Allergies Coded Allergies: codeine (Verified Allergy, Intermediate, HIVES, 04/02/20) hydrocodone (Verified Allergy, Intermediate, HIVES ITCHING, 04/02/20) latex (Verified Allergy, Intermediate, HIVES ITCHING, 04/02/20) Dust (Verified Allergy, Unknown, 04/02/20) POLLEN (Verified Allergy, Unknown, 10/29/20) aspirin (Verified Adverse Reaction, Intermediate, ITP, 04/02/20) ibuprofen (Verified Adverse Reaction, Intermediate, ITP, 04/03/20) PATIENT IS LIMITED TO 1+600MG OR LESS A DAY PER NEUROLOGY (ALEX PICKARD MD Mar 13, 2021 10:00
[2021-03-13] MEDS ORDERED: NICOTINE POLACRILEX 2 MG GUM PO PRN (10:20)
[2021-03-13] MEDS: CARIPRAZINE 1.5MG CAPSULE (VRAYLAR) PO SCH (10:23)
[2021-03-13] MEDS: LITHIUM CARBONATE 300 MG CAP PO SCH ×2 (10:24→23:10)
[2021-03-13] MEDS: hydrOXYzine 25 MG TAB PO SCH ×3 (12:16→23:10)
[2021-03-13] MEDS: OLANZapine ORAL DISINTEGRATING TAB 5MG PO PRN (15:32)
[2021-03-13] MEDS: NICOTINE 21MG/24HR 1 EA TRANSDERMAL TD SCH (16:07)
[2021-03-13 19:11] VITALS: BP 144/73
--- NOTE | 2021-03-13 19:20 | HPEPDOC ---
[facility] Medical History & Physical Date of Admission Mar 13, 2021 Date of Service: Mar 13, 2021 History and Physical CHIEF COMPLAINT: Medical health screening HISTORY OF PRESENT ILLNESS: Ms. Horta is a 35-year-old female with ITP and unspecified thyroid disease who is in the inpatient mental health unit for psychosis. Please see psychiatrist H&P for information about patient's psychosis. I saw the patient this evening with female nurse congressional representative. Patient was very pleasant and had some pressured speech. She dementia like to go back seen [facility] psychiatry instead of [place] psychiatrist. Otherwise, she requested recheck of her thyroid panel, testing for HIV and HSV, and repeat CBC for her ITP. She also concerns about electrolyte deficiencies as well as rheumatoid arthritis in her hands. Patient follows up with endocrinology, Dr. Benoit, outpatient for her thyroid. Patient tells me that she is hypothyroid but is currently just monitoring her labs. She is supposed to see Dr. Benoit in May, but patient would like to be tested sooner. Patient was told some people she was sleeping with was HIV positive. She requested HIV testing. Also request HSV testing. Patient also that she has some numbness and tingling in her hands and feet. Is worse in the wintertime. She is worried that she has rheumatoid arthritis. Patient was recently diagnosed with bacterial vaginosis. She was on metronidazole outpatient. PAST MEDICAL HISTORY: 1. ITP. 2. Migraine headaches. 3. Bipolar disorder. 4. Unspecified thyroid disease. PAST SURGICAL HISTORY: 1. C-sections x4. 2. Tonsillectomy. 3. Tubal ligation. SOCIAL HISTORY: Tobacco use: Current smoker and vaper ETOH: Denies Illicit drug use: Has medical marijuana card FAMILY HISTORY: Does not know family's past medical history ALLERGIES: Please see below. REVIEW OF SYSTEMS: CONSTITUTIONAL: Denies any fever or chills. ENT: Denies sore throat. RESPIRATORY: When anxious she has some shortness of breath and chest pain CARDIOVASCULAR: When anxious she has some shortness of breath and chest pain GASTROINTESTINAL: Denies abdominal pain. Denies diarrhea. GENITOURINARY: Denies dysuria. CUTANEOUS: Denies rashes. HEMATOLOGICAL: Reports easy bruisability secondary to ITP NEUROLOGICAL: Reports paresthesias in hands and feet PSYCHOLOGICAL: Denies anxiety. Denies depression. HOME MEDICATIONS: Please see below. PHYSICAL EXAMINATION: VITAL SIGNS: Temperature 96.9, pulse 75, respiratory rate 18, blood pressure 132/67, pulse oximetry 100% on room air. GENERAL: Comfortable, in no apparent distress. HEENT: EOMI, sclera clear. NECK: Supple. RESPIRATORY: Lungs clear to auscultation bilaterally, no rales, wheeze or rhonchi. CARDIOVASCULAR: Regular rate and rhythm. ABDOMEN: Soft, nontender, no guarding or rebound tenderness. Normal bowel sounds. MUSCLE SKELETAL: Muscle strength 5/5 in all extremities. NEUROLOGICAL: CN 312 grossly intact, no focal deficits noted. PSYCHOLOGICAL: Speaks very quickly LABORATORY DATA: See below. IMAGING: None MICROBIOLOGY: Please see below. ASSESSMENT and PLAN: 1. Psychosis Being managed by the inpatient mental health unit 2. Bacterial vaginosis Restart metronidazole for seven days 3. Possible HIV exposure Patient reports some of her sleeping partners may have been HIV positive Ordered screening for HIV 4. Unspecified thyroid disorder Patient follows with Dr. Benoit Obtain thyroid function studies 5. ITP Repeat CBC Thank you for consulting us. We will sign off at this time. If there is any further questions or concerns, please do not hesitate to reconsult us. Vital Signs Vital Signs Date Time Temp Pulse Resp B/P (MAP) Pulse Ox O2 Delivery O2 Flow Rate FiO2 03/12/21 22:35 96.9 75 18 132/67 (88) 100 Room Air Home Medications Scheduled Cariprazine HCl (Vraylar) 1.5 Mg Capsule, 1.5 MG PO DAILY Cyanocobalamin (Vitamin B-12) (Vitamin B-12) 100 Mcg Tablet, 100 MCG PO DAILY Galcanezumab-Gnlm (Emgality Pen) 120 Mg/1 Ml Pen.injctr, 120 MG SC QMONTH Scheduled PRN Rizatriptan Benzoate (Maxalt Rate And Cost Analyst) 10 Mg Tab.rapdis, 10 MG PO BID PRN for MIGRAINE Allergies Coded Allergies: codeine (Verified Allergy, Intermediate, HIVES, 04/02/20) hydrocodone (Verified Allergy, Intermediate, HIVES ITCHING, 04/02/20) latex (Verified Allergy, Intermediate, HIVES ITCHING, 04/02/20) Dust (Verified Allergy, Unknown, 04/02/20) POLLEN (Verified Allergy, Unknown, 04/02/20) aspirin (Verified Adverse Reaction, Intermediate, ITP, 04/02/20) ibuprofen (Verified Adverse Reaction, Intermediate, ITP, 04/03/20) PATIENT IS LIMITED TO 1+600MG OR LESS A DAY PER NEUROLOGY (DR Ken ZUNIGA) A-FIB/CHADSVASC A-FIB History Current/History of A-Fib/PAF?: No MONIQUE BERTRAND DO Mar 13, 2021 19:20
[2021-03-13] MEDS: metroNIDAZOLE (FLAGYL) 500MG TABLET PO SCH (23:10)
[2021-03-14] MEDS: hydrOXYzine 25 MG TAB PO SCH ×3 (05:49→17:24)
[2021-03-14 06:18] VITALS: BP 136/95
[2021-03-14] MEDS: LITHIUM CARBONATE 300 MG CAP PO SCH ×3 (08:03→20:16)
[2021-03-14] MEDS: CARIPRAZINE 1.5MG CAPSULE (VRAYLAR) PO SCH (08:03)
[2021-03-14] MEDS: ACETAMINOPHEN TAB 650MG DOSE (2X325MG) PO PRN ×2 (08:03→20:16)
[2021-03-14] MEDS: metroNIDAZOLE (FLAGYL) 500MG TABLET PO SCH ×2 (08:03→20:16)
[2021-03-14] MEDS: NICOTINE 21MG/24HR 1 EA TRANSDERMAL TD SCH (08:44)
[2021-03-14 09:12] LABS: BLOOD UREA NITROGEN 11 MG/DL (7-18); CALCIUM LEVEL 9.2 MG/DL (8.5-10.1); CARBON DIOXIDE LEVEL 24 MEQ/L (21-32); CHLORIDE LEVEL 109 MEQ/L (98-107); FREE T3 3.8 PG/ML (2.2-4.0); FREE T4 1.57 NG/DL (0.76-1.46); GLOMERULAR FILTRATION RATE > 60.0 (>60); GLUCOSE, FASTING 109 MG/DL (70-100); RHEUMATOID FACTOR QUANT < 10.0 IU/ML (<15.0); SODIUM LEVEL 138 MEQ/L (136-145); THYROID STIMULATING HORMONE 0.293 uIU/ML (0.358-3.740)
--- NOTE | 2021-03-14 12:04 | MHIPNPDOC ---
[facility] Progress Note Progress Note DATE OF SERVICE: 03/14/21 HISTORY: Patient is a 35 -year-old , female, who who came by EMS, patient has been psychotic in the ER. During my evaluation on the unit she is grandiose, agitated, easily irritable and angry at times patient. Continues to have paranoid delusions, reports a gang called blood is after her to hurt her, she reports that she is affiliated to a gang called [employer]. Her mood is labile, had crying spells. She was suspicious was carrying her belongings in a bag during my evaluation. She reports she is on cariprazine 0.5 mg but wants it to be raised. She reports she is also on lithium 750 mg daily. Reports her stressors are financial, and her uncle is suffering from Covid 19. ED report Pt brought in via EMS. Pt originally called reporting medical concerns and stated she had COVID, but then ended up expressing si and talking about how people are trying to kill her, resulting in police placing pt on a 9.41. Interval report: Patient seems to be improving, she is reporting it is because of noncompliance with medication that she decompensated. MENTAL STATUS EXAMINATION: Patient is [id number] old female, who is groomed well, appears stated age Speech: Is hyperverbal Language skills are good Thought processes including: Pressured Thought content: Denies any suicidal homicidal ideas, denies any paranoid or bizarre delusions, denied any auditory visual hallucinations Judgment: Poor Insight: Fair to poor Orientation: Oriented to time place and person Recent and remote memory: Good Attention span and concentration: Good Language: . Fund of knowledge: . Mood: Elated. Affect: Happy DIAGNOSES: 1. Bipolar 1 disorder 2. Cocaine use disorder 3. Cannabis use disorder ASSESSMENT: Patient was noncompliant with her medications, she used drugs which decompensated her. Patient is back on her medications. Her lithium was inc reased to 300 mg 3 times daily today MANAGEMENT PLAN: Continue current medications, will get lithium level in 4 days. TIME SPENT: 25 minutes. Vital Signs Vital Signs Date Time Temp Pulse Resp B/P (MAP) Pulse Ox O2 Delivery O2 Flow Rate FiO2 03/14/21 06:18 98.9 63 18 136/95 (109) 98 Room Air Laboratory Data 24H Labs Laboratory Tests 2 03/14/21 07:53: Anion Gap 5L, Glomerular Filtration Rate > 60.0, Calcium Level 9.2, Thyroid Stimulating Hormone (TSH) 0.293L, Free Thyroxine 1.57H, Free Triiodothyronine 3.8, Rheumatoid Factor < 10.0 CBC/BMP Laboratory Tests 03/14/21 07:53 Current Medications Current Medications Medications (Trade) Dose Ordered Sig/Sima Route PRN Reason Start Time Stop Time Status Last Admin Dose Admin Acetaminophen (Tylenol Tab) 650 mg Q6HP PRN PO HEADACHE or MILD DISCOMFORT 03/12/21 20:50 03/14/21 08:03 Al Hydrox/Mg Hydrox/Simethicone (Mylanta) 30 ml Q4HP PRN PO HEARTBURN/INDIGESTION 03/12/21 20:50 Cariprazine (Vraylar) 1.5 mg DAILY PO 03/13/21 09:00 03/14/21 08:03 Home Med (Home Med List Complete!) ASDIRECTED XX 03/12/21 19:05 03/12/21 19:06 DC Hydroxyzine HCl (Atarax) 25 mg Q6H PO 03/13/21 12:00 03/14/21 11:45 Ramseur Carbonate (Ramseur Carbonate) 300 mg BID PO 03/13/21 09:00 03/14/21 11:53 DC 03/14/21 08:03 Ramseur Carbonate (Ramseur Carbonate) 300 mg TID PO 03/14/21 16:00 UNV Magnesium Hydroxide (Milk Of Magnesia) 30 ml DAILYPRN PRN PO CONSTIPATION 03/12/21 20:50 Metronidazole (Flagyl) 500 mg BID PO 03/13/21 21:00 03/20/21 20:59 03/14/21 08:03 Metronidazole (Metrogel Vaginal) 1 dose DAILY PV 03/13/21 09:00 03/13/21 18:54 DC Nicotine (Nicoderm Cq 21mg) 1 patch DAILY TD 03/13/21 09:00 03/14/21 08:44 Nicotine (Nicorette) 2 mg Q4HP PRN PO NICOTINE WITHDRAWAL 03/13/21 10:20 03/13/21 15:32 DC 03/13/21 10:25 Olanzapine (ZyPREXA ZYDIS) 5 mg Q4HP PRN PO ANXIETY/AGITATION 03/12/21 20:50 03/13/21 15:32 Trazodone HCl (Desyrel) 50 mg QHSP PRN PO INSOMNIA 03/12/21 20:50 Allergies Coded Allergies: codeine (Verified Allergy, Intermediate, HIVES, 04/02/20) hydrocodone (Verified Allergy, Intermediate, HIVES ITCHING, 04/02/20) latex (Verified Allergy, Intermediate, HIVES ITCHING, 04/02/20) Dust (Verified Allergy, Unknown, 04/02/20) POLLEN (Verified Allergy, Unknown, 04/02/20) aspirin (Verified Adverse Reaction, Intermediate, ITP, 04/02/20) ibuprofen (Verified Adverse Reaction, Intermediate, ITP, 04/03/20) PATIENT IS LIMITED TO 1+600MG OR LESS A DAY PER NEUROLOGY (DR Ken ZUNIGA) ALEX RIDDLE MD Mar 14, 2021 12:04
[2021-03-14 22:00] VITALS: BP 126/90
[2021-03-15] MEDS: hydrOXYzine 25 MG TAB PO SCH ×4 (01:31→11:44)
[2021-03-15] MEDS: ACETAMINOPHEN TAB 650MG DOSE (2X325MG) PO PRN (06:45)
[2021-03-15 06:46] VITALS: BP 144/97
[2021-03-15] MEDS: metroNIDAZOLE (FLAGYL) 500MG TABLET PO SCH (07:56)
[2021-03-15] MEDS: LITHIUM CARBONATE 300 MG CAP PO SCH (07:57)
[2021-03-15] MEDS: CARIPRAZINE 1.5MG CAPSULE (VRAYLAR) PO SCH (07:57)
[2021-03-15] MEDS: NICOTINE 21MG/24HR 1 EA TRANSDERMAL TD SCH (07:57)
[2021-03-15] MEDS ORDERED: FLAG500T PO (11:42)
[2021-03-15] MEDS ORDERED: VRAY1.5C PO (11:42)
[2021-03-15] MEDS ORDERED: NICO21PAT TD (11:42)
[2021-03-15] MEDS ORDERED: LITH300C PO (11:42)
[2021-03-15 12:44] LABS: HIV 1&2 SCREEN CENTAUR NEGATIVE (NEGATIVE)
--- NOTE | 2021-03-15 14:48 | MHDSPDOC ---
[facility] Discharge Summary Discharge Summary DATE OF ADMISSION: Mar 12, 2021 at 20:46 DATE OF DISCHARGE: Mar 15, 2021 at 13:58 Discharge diagnoses: Bipolar 1 disorder manic with psychotic features Substance-induced psychotic disorder Cocaine use disorder Cannabis use disorder ITP Hypothyroidism Reason for admission: Per Dr. Alvarez's H and P: "Patient is a 35 -year-old , female, who who came by EMS, patient has been psychotic in the ER. During my evaluation on the unit she is grandiose, agitated, easily irritable and angry at times patient. Continues to have paranoid delusions, r eports a gang called blood is after her to hurt her, she reports that she is affiliated to a gang called [employer]. Her mood is labile, had crying spells. She was suspicious was carrying her belongings in a bag during my evaluation. She reports she is on cariprazine 01.5 mg but wants it to be raised. She reports she is also on lithium 750 mg daily. Reports her stressors are financial, and her uncle is suffering from Covid 19." Per PSA report patient was disorganized, psychotic, brought in by police. Vital signs: See below Consultants involved: See medical H&P by hospitalist Treatment and progress on the unit: Patient was admitted to the [facility] 9.39 legal status and was afforded the following treatment modalities: 1. Individual therapy 2. Group therapy 3. Medication management 4. Milieu therapy 5. Safe environment Hospital course: Patient was admitted to the [facility] on a 9.39 legal status. Was medically cleared prior to coming up to the [facility]. She is restarted on her home medications with lithium being titrated up to 300 mg 3 times daily as level was low at 0.34 on March 12, 2021, was continued on Vraylar 1.5 mg p.o. nightly, patient found medications beneficial and tolerated them well. Thyroid test showed low T4, which need to be evaluated outpatient patient is aware her thyroid issues which she reports are chronic and understands she has follows up with her primary doctor. On interview today reports good response to medications, he is organized alert and oriented x3, irritable that she is in the hospital states "I want to get back to [place] they way better, I have been hospitalized here before and it was useless". Denies mood, anxiety and intrusive thoughts which improved with treatment. States she was never suicidal during her stay and that she had smoked cannabis joint which was laced with other drugs and this led to her admission, she does need to be put back on her medications and she is future oriented and wants to go to her outside providers who can adjust her meds long-term as needed. Patient attended 3 groups today, had not been attending groups prior to this in context of acute stabilization. Patient symptoms improved with treatment. On day of discharge patient denied depression, anxiety, insomnia, suicidal or homicidal ideations intent or plan, hallucinations, delusions or any manic, grandiose, hyperactive behavior. She also denies any homicidal ideation, intent or plans states she never want to harm anyone was just frustrated with hospital stay in context of substance use and withdrawal symptoms. Patient was educated about substance use but refused treatments. Patient was discharged home with follow-up. Patient felt safe for discharge. Was offered continued stay voluntary admission but refused. Discharge assessment: On today's interview patient is alert and oriented, dressed appropriately. Hygiene and grooming is well-kept. Smiles on approach and is pleasant and engaged on interview. Denies depression and anxiety. Denies suicidal homicidal ideation, intent or planning. Denies and is not observed with alyla or psychotic symptoms of delusions, hallucinations, bizarre thinking, obsessions, paranoia, ruminations, illogical thoughts, flight of ideas or having poor insight or judgment. Patient has normal mentation, declines further hospitalization of voluntary status and meets criteria for discharge today, patient encouraged to return the hospital if symptoms worsen or change and encouraged to call unit if they feel they need provider's questions to be answered or help with medications or care. Mental status: Patient is in no acute distress, irritable, cooperative mood is frustrated for being in the hospital was able redirect her self stating reasons for frustrations and that she displayed any other medications and is court ordered and future oriented wanting to return to her outpatient provider, mood is fine, affect is full, somewhat irritable, not anxious, not manic, not psychotic, appropriate, has good eye contact, good hygiene in casual clothing, is sitting on her bed and able to be calm without pacing or increased activity. Thought processes linear and logical. Thought content denies suicidal ideation, intent or plan. Denies homicidal ideation, intent or plan. Cognition is normal without deficits. Is alert and oriented x4. Speech is normal rate, normal amount, normal volume. Apologizes after initially being rude per her own assessment, stating she just needs to leave and continue with outpatient treatment. Medications on discharge: see medication reconciliation: CSSRS on discharge: Wish to be : No nonspecific active suicidal thoughts: No lifetime attempts: 0 interrupted attempts: 0 aborted attempts: 0 preparatory acts or behavior: None Taking into consideration safety state, status, modifiable, non-modifiable risk factors patient is at low risk on discharge for suicide according to [place] suicide evaluation. PLAN/FOLLOWUP ARRANGEMENTS: Follow Up Care Education Label * Medical * Medical Follow Up [facility] * Established With This Provider Yes * Therapist * Date Mar 31, 2021 * Time 11:00 * Address of Clinic or Practice [address] [place] [address] * * Additional information Have PCP follow up with labs (HSV, CCP)pending at time of discharge from [facility]. Follow Up Care Education Label * Mental Health Appt 1 * Established With This Provider Yes * Therapist ADE PRIEST * Date Mar 16, 2021 * Time 16:00 * Address of Clinic or Practice [address] [place] [address] * The amount of time spent in the coordination of care for this patient was approximately 25 minutes. ETOH/Disorder Med Rx ETOH/DRUG DISORDER RX: Offrd @ d/c & pt refused Vital Signs/I&Os Vital Signs Date Time Temp Pulse Resp B/P (MAP) Pulse Ox O2 Delivery O2 Flow Rate FiO2 03/15/21 06:46 97.1 72 16 144/97 (113) 100 Room Air Medications Scheduled Cariprazine HCl (Vraylar) 1.5 Mg Capsule, 1.5 MG PO DAILY for mood, #7 Cyanocobalamin (Vitamin B-12) (Vitamin B-12) 100 Mcg Tablet, 100 MCG PO DAILY, (Reported) Galcanezumab-Gnlm (Emgality Pen) 120 Mg/1 Ml Pen.injctr, 120 MG SC QMONTH, (Reported) [place] Carbonate ([place] Carbonate) 300 Mg Capsule, 300 MG PO TID for mood, #7 Metronidazole (Flagyl) 500 Mg Tablet, 500 MG PO BID for infection, #8 Take 1 pill twice daily for 3 days and follow up with outpatient provider Nicotine (Nicotine Patch) 21 Mg Patch.td24, 1 PATCH TD DAILY for nicotine cravings, #7 Scheduled PRN Rizatriptan Benzoate (Maxalt De[employer] Supervisor) 10 Mg Tab.rapdis, 10 MG PO BID PRN for MIGRAINE, (Reported) Allergies Coded Allergies: codeine (Verified Allergy, Intermediate, HIVES, 04/02/20) hydrocodone (Verified Allergy, Intermediate, HIVES ITCHING, 04/02/20) latex (Verified Allergy, Intermediate, HIVES ITCHING, 04/02/20) Dust (Verified Allergy, Unknown, 04/02/20) POLLEN (Verified Allergy, Unknown, 04/02/20) aspirin (Verified Adverse Reaction, Intermediate, ITP, 04/02/20) ibuprofen (Verified Adverse Reaction, Intermediate, ITP, 04/03/20) PATIENT IS LIMITED TO 1+600MG OR LESS A DAY PER NEUROLOGY (DR Ken ZUNIGA) SHARIFA COX MD Mar 15, 2021 14:48
== END 2021-03-15 13:58 | disposition home or self-care (01) | DRG 753 ==
LOC: EDBD 13:09 → M ED 13:09 → M ED INP 20:46 → M PSY 22:31
PROVIDERS: ADMIT Psychiatry & Neurology Psychiatry; ATTEND Student in an Organized Health Care Education/Training Program
DX: F31.2 Bipolar disorder, current episode manic severe with psychotic features (principal); F14.159 Cocaine abuse with cocaine-induced psychotic disorder, unspecified; F12.159 Cannabis abuse with psychotic disorder, unspecified; E03.9 Hypothyroidism, unspecified; D69.3 Immune thrombocytopenic purpura; Z73.3 Stress, not elsewhere classified; F17.290 Nicotine dependence, other tobacco product, uncomplicated; Z20.822 Contact with and (suspected) exposure to COVID-19; Z79.899 Other long term (current) drug therapy; Z88.5 Allergy status to narcotic agent; Z88.6 Allergy status to analgesic agent; Z88.8 Allergy status to other drugs, medicaments and biological substances; Z91.040 Latex allergy status; G43.909 Migraine, unspecified, not intractable, without status migrainosus; Z90.49 Acquired absence of other specified parts of digestive tract; N76.0 Acute vaginitis; Z91.14 Patient's other noncompliance with medication regimen

== ENCOUNTER 2021-03-17 19:18 | Inpatient (IN) | payer MEDICAID, OTHER ==
[~2021-03-17] VITALS: Ht 144.8 cm; Wt 64.6 kg
[~2021-03-17 19:18] MED LIST changes: +EMGA120I; +EMGA120I SC; +IBUP-1720 PO; +LITH300C PO; +MAXA10TA15 PO; +VITA1TAB35 PO
--- OUTSIDE RECORDS SUMMARY | 2021-03-17 19:24 | CCD | Continuity of Care Document ---
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 AUTM [phone] 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 Juan Storey MD Onset: 09/26/2016 Mood disorder Nolan Avalos PA-C Onset: 08/17/2017 Personality disorder Craig Erazo LCSW Onset: 04/01/2020 Cannabis dependence, uncomplicated Craig Erazo LCSW Onse t: 04/01/2020 Cobalamin deficiency Juan Storey MD Onset: 02/17/2021 Allergic rhinitis Juan Storey MD Onset: 11/17/2020 Migraine without aura, not refractory Juan Storey MD On set: 11/17/2020 Social History Type Date Description Comments Sex Unknown Tobacco Use Start: Unknown Light tobacco smoker (10 or fewe r cigarettes/day) Tobacco Use Start: Unknown Never Smoked Cigars Tobacco Use Start: Unknown Never Smoked A Pipe Tobacco Use Start: Unknown Never Used Smokeless Tobacco ETOH Use Denies alcohol use Recreational Drug Use Regularly uses Marijuana s tates she will stop during Tobacco Use Start: Unknown Patient is a current smoker, smo kes every day MAYOC: 10/19/2019 Estimated Date of Delivery Based on LMP MAYCO: 04/24/2016 Estimated Date of Delivery Based on Final MAYCO Allergies, Adverse Reactions, Alerts Active Allergies Criticality Reaction | Severity Comments Date Opioids Unable to assess criticality Urticaria | Mild 01/04/2016 NKFA Unable to assess criticality 01/04/2016 Latex Unable to assess criticality Hives | Moderate 10/24/2016 Seasonal Unable to assess criticality 05/25/2020 Medications Active Medications SIG Qnty Indications Ordering Provide r Date Metronidazole 500mg Tablets one tab by mouth twice daily for 7 days 14tabs Chan Corey M.D. 03/01/2021 Fluconazole 150mg Tablets take 1 by mouth once on days 1, 3 and 7 #3 3tabs Theodora Rodriguez 03/01/2021 Cipro 250mg Tablets 1 tab by mouth twice a day 6tabs Juan Storey MD 02/18/2021 Emgality 120mg/ml Solution Auto-In ject give one dose sc monthly. 3ml G43.009 Juan Storey MD Fluconazole 150mg Tablets take 1 by mouth once on days 1, 3 and 7 #3 3tabs B37.3 Theodora Rodriguez 02/17/2021 Vitamin B-12 1000mcg Tablets 1 by mouth every day 90tabs Juan Storey MD 01/04/2021 Rizatriptan Benzoate 10mg Tablets Dispers dissolve 1 tablet in mouth once daily as needed max of 6 headaches per week (may repeat once after two hrs) 18tabs Juan Storey MD 10/15/2020 Vraylar 1.5mg Capsules take one capsule by mouth daily for thoughts 30caps F31.60 Kanu Alexandra MD 1 07/24/2019 F60.9 F06.33 Ibuprofen 800mg Tablets Yon Cota 05/22/2020 Vitamin D (Ergocalciferol) 1.25mg (18911 Ut) Capsules 1 cap by mouth every two weeks 6caps E55.9 Juan Storey MD 02/24/2020 Montelukast Sodium 10mg Tablets 1 by mouth every day 90tabs J30.9 Juan Storey MD 02/24/2020 History Medications Rizatriptan Benzoate 10mg Tablets Dispers Dissolve 1 Tablet In Mouth Once Daily as Needed Max Of 2-4 Headaches Per Week 12tabs G43.109 Juan Storey MD 10/15/2020 - 10/15/2020 Naproxen 500mg Tablets one tablet by mouth twice a day, after meals, as needed, for pain. 28tabs M62.830 Valerie Tillman MD 10/06/2020 - 02/17/2021 Tizanidine HCL 4mg Tablets 1 tablet by mouth every [address], or operate machinery, while taking this medication. 42tabs M62.830 Liza Tillman MD 10/06/2020 - Medications Administered in Office Medication SIG Qnty Indications Ordering Provider Date Ketorolac (Toradol) Inj 30MG/ML Injection Eloise Cheema PA-C 1 Ketorolac (Toradol) Inj 30MG/ML Injection Javier Cruz PA-C 09/13/19 21 Ketorolac (Toradol) Inj 30MG/ML Injection Juan Storey MD 08/31/19 17 Immunizations CPT Code Status Date Vaccine Lot # [id number] Given 02/24/2020 Influenza (>= 6 Months) P.F. Vaccine [id number] Given 03/27/2018 Influenza (>= 6 Months) P.F. Vaccine [id number] Vital Signs Date Vital Result Comment 02/17/2021 1:52pm BP Systolic 128 mmHg BP Diastolic 82 mmHg Respiratory Rate 16 /min 02/17/2021 1:24pm BP Systolic 134 mmHg BP Diastolic 72 mmHg Heart Rate 88 /min Body Temperature 97.3 F Respiratory Rate 18 /min O2 % BldC Oximetry 93 % Weight 148.00 lb Weight 67.133 kg Height 61 inches 5'1" BMI (Body Mass Index) 28.0 kg/m2 BSA (Body Surface Area) 1.66 m2 Results Test Acquired Date Facility Test Result H/L Range Note Herpes Simplex Virus I/II Igg 02/26/20[facility] 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 3 Laboratory test finding 02/26/2021 [facility] Vitamin B12 Serum 353 pg/mL 232 - 1245 4 HCV Fibrosure 02/26/2021 [facility] Fibrosis Score 0.02 NA 0.00-0.21 Fibrosis Stage COMMENT 5 Necroinflammat ActivityScore 0.03 NA 0.00-0.17 Necroinflammat ActivityGrade A0-No activity Alpha 2-Macroglobulins,Qn 157 mg/dL 110-276 Haptoglobin 228 mg/dL 33-278 Apolipoprotein A-1 105 mg/dL Low 116-209 Bilirubin, Total 0.1 mg/dL 0.0-1.2 GGT 12 IU/L 0-60 Alt (SGPT) P5P 13 IU/L 0-40 Interpretations: COMMENT 6 Fibrosis Scoring: COMMENT 7 Necroinflamm ActivityScoring: COMMENT 8 Limitations: COMMENT 9 Comment: WILL FOLLOW Herpes I&II Igm AB 02/26/2021 [facility] HSV, IgM I/II Combination <0.91 Ratio 0.00-0.90 10 HIV Panel 02/26/2021 [facility] HIV Screen 4thGeneration wRfx Non Reactive Non Reacti ve Laboratory test finding 02/26/2021 [facility] Syphilis NON-REACTIVE Normal:Non Reactive Hepatitis B Surf Antigen NONREACTIVE Normal:Non React estephanie Hep C Antibody With Reflex Quant PCR <0.1 s/coratio 0. 0-0.9 Comprehensive Metabolic Panel 02/26/2021 [facility] Comprehensive Metabo (SEE NOTE) 11 Sodium 138 mEq/L 134 - 153 Potassium 4.0 mEq/L 3.6 - 5.0 Chloride 104 mEq/L 98 - 107 Co2 23 mEq/L 22 - 30 Glucose 100 mg/dL High 70 - 99 BUN 12 mg/dL 7 - 21 Creatinine 0.6 mg/dL Low 0.7 - 1.5 BUN/Creat 20 8 - 27 Total Protein 7.1 g/dL 6.3 - 8.2 Albumin 4.8 g/dL 3.9 - 5.0 Globulin 2.3 GM/DL Low 2.4 - 3.2 A/G Ratio 2.1 High 0.8 - 2.0 Calcium 9.6 mg/dL 8.4 - 10.2 Total Bili <0.7 mg/dL 0.2 - 1.3 Alkaline Phos 75 U/L 38 - 126 Sgot/Ast 13 U/L 5 - 40 SGPT/Alt 11 U/L 7 - 56 Anion Gap 11.0 mmol/L 8.0 - 16.0 Age 35 yrs Non-Aa GFR >60 mL/min Afr Amer GFR >60 mL/min 12 Laboratory test finding 02/26/2021 [facility] Ferritin Krysta 47.6 ng/mL 3.0 - 105 Iron Binding Capacity 02/26/2021 [facility] Iron 45 g/dL 42 - 135 Uibc 215 g/dL 112 - 347 Tibc 260 g/dL 250 - 450 Iron Sat 17 % Laboratory test finding 02/26/2021 [facility] Vitamin D (25-Hydroxy) 23 NG/ML 13 CBC W/Automated Diff 02/26/2021 [facility] CBC W/Automated Diff (SEE NOTE) 14 WBC 12.6 10^3/uL High 4.2 - 11.0 RBC 4.44 10^6/uL 4.20 - 5.40 Hemoglobin 14.0 g/dL 12.0 - 16.0 Hematocrit 41.6 % 37.0 - 47.0 MCV 93.7 fL 81.0 - 101 MCH 31.5 pg 27.0 - 34.0 MCHC 33.7 g/dL 31.0 - 36.0 RDW 13.9 % 11.5 - 14.5 Platelets 210 10^3/uL 150 - 450 MPV 9.1 fL 7.4 - 10.4 Neut 66.7 % 37.0 - 80.0 Lymph 24.8 % Low 25.0 - 40.0 Pope 6.6 % 3.0 - 8.0 Eos 1.4 % 0.0 - 7.0 Baso 0.2 % 0.0 - 2.5 %Ig 0.3 % High 0.0 - 0.0 %NRBC 0.0 % 0.0 - 0.0 #Neut 8.36 10^3/uL High 2.00 - 6.90 #Lymph 3.12 10^3/uL 0.60 - 3.40 #Pope 0.83 10^3/uL 0.00 - 0.90 #Eos 0.18 10^3/uL 0.00 - 0.70 #Baso 0.03 10^3/uL 0.00 - 0.20 #Ig 0.04 10^3/uL 0.00 - 0.10 #NRBC 0.00 10^3/uL 0.00 - 0.00 Manual Diff NOT INDICATED RBC Morph NOT INDICATED Covid-19 02/22/2021 [facility] Sars-CoV-2, Tracey Not Detected Not Detected 15, 16 Sars-CoV-2, Tracey 2 Day Tat Performed Cuture Urine 02/17/2021 [facility] Culture Urine (SEE NOTE) 17, 18 Ua With Reflex To Ua Culture 02/17/2021 [facility] spital Ua Reflex To Ua Cult (SEE NOTE) 19 Source R Color yellow Normal: Yellow Clarity hazy Normal: Clear Spec [place] 1.020 1.001 - 1.030 pH 6 5 - 9 Glucose NORM Normal: Negative Bilirubin NEG Normal: Negative Ketone NEG Normal: Negative Protein 15 Normal: Negative Nitrite POS Normal: Negative Blood 10 Abnormal Normal: Negative Leuk Est 25 Normal: Negative Urobilinogen NOR less than 1.0 mg/dL Microscopic See Below WBC 5 - 7 Abnormal Normal: None Seen RBC 1 - 3 Normal: None Seen Epithelial None Seen Normal: None Seen Bacteria 3+ LARGE Abnormal Normal: None Seen Mucous 1+ Normal: None Seen Yeast Few Abnormal 20 Chlamydia GC/Trich 02/17/2021 [facility] Source: Genital 21 Chlamydia by Tracey Negative Negative Gonococcus by Tracey Negative Negative Trich vag by Tracey Negative Negative Bacterial Vaginosis 02/17/2021 [facility] Source: Genital Isabela species Positive Abnormal Negative Gardnerella vaginalis Positive Abnormal Negative Trichomonas vaginalis Negative Negative Chlamydia/GC 02/17/2021 [facility] Chlam Trach QL Dna Probe <pending> GC By Dna Cervical Mucus <pending> Affirm Vaginitis Panel 02/17/2021 [facility] Z#Other Observations <pending> Covid-19 01/24/2021 [facility] Sars-CoV-2, Tracey Not Detected Not Detected 22 Sars-CoV-2, Tracey 2 Day Tat Performed Laboratory test finding 01/06/2021 [facility] Ferritin 73 NG/ML Normal 8-252 23 Total Iron Binding Capacit 01/06/2021 [facility] Iron (Fe) 78 g/dL Normal 50-170 Total Iron Binding Capacity 256 g/dL Normal 250-450 Percent Saturation 30.5 % Normal 13.2-45.0 Comprehensive Metabolic Profil 01/06/2021 [facility] Glucose, Fasting 109 mg/dL High 70-100 Blood Urea Nitrogen 14 mg/dL Normal 7-18 Creatinine For GFR 0.66 mg/dL Normal 0.55-1.30 Glomerular Filtration Rate > 60.0 Normal >60 2 4 Sodium Level 141 mEq/L Normal 136-145 Potassium Serum 3.9 mEq/L Normal 3.5-5.1 Chloride Level 111 mEq/L High 98-107 Carbon Dioxide Level 26 mEq/L Normal 21-32 Anion Gap 4 mEq/L Low 8-16 Calcium Level 8.9 mg/dL Normal 8.5-10.1 Ast/Sgot 12 U/L Normal 7-37 Alt/SGPT 18 U/L Normal 12-78 Alkaline Phosphatase 76 U/L Normal 45-117 Bilirubin,Total 0.5 mg/dL Normal 0.2-1.0 Total Protein 7.2 GM/DL Normal 6.4-8.2 Albumin 3.9 GM/DL Normal 3.2-5.2 Albumin/Globulin Ratio 1.2 Normal 1.2-2.2 CBC With Differential 01/06/2021 [facility] White Blood Count 9.9 10 Normal 4.0-10.0 Red Blood Count 4.22 10 Normal 4.00-5.40 Hemoglobin 13.1 g/dL Normal 12.0-15.5 Hematocrit 39.7 % Normal 36.0-47.0 Mean Corpuscular Volume 94.1 fl Normal 80.0-96.0 Mean Corpuscular Hemoglobin 31.0 pg Normal 27.0-33.0 Mean Corpuscular HGB Conc 33.0 g/dL Normal 32.0-36.5 Red Cell Distribution Width 14.5 % Normal 11.5-14.5 Platelet Count, Automated 245 10 Normal 150-450 Neutrophils % 64.3 % Normal 36.0-66.0 Lymph % 27.1 % Normal 24.0-44.0 Pope % 6.4 % Normal 2.0-8.0 Eos % 1.5 % Normal 0.0-3.0 Baso % 0.3 % Normal 0.0-1.0 Immature Granulocyte % 0.4 % Normal 0-3.0 Nucleated Red Blood Cell % 0.0 % Normal 0-0 Neutrophils # 6.4 10 Normal 1.5-8.5 Lymph # 2.7 10 Normal 1.5-5.0 Pope # 0.6 10 Normal 0.0-0.8 Eos # 0.2 10 Normal 0.0-0.5 Baso # 0.0 10 Normal 0.0-0.2 Covid-19 11/20/2020 [facility] Sars-CoV-2, Tracey Not Detected Not Detected 25 Sars-CoV-2, Tracey 2 Day Tat Performed Laboratory test finding 11/17/2020 [facility] Ferritin Krysta 63.5 ng/mL 3.0 - 105 26 Iron Binding Capacity 11/17/2020 [facility] Iron 58 g/dL 42 - 135 Uibc 173 g/dL 112 - 347 Tibc 231 g/dL Low 250 - 450 Iron Sat 25 % CBC W/Automated Diff 11/17/2020 [facility] CBC W/Automated Diff (SEE NOTE) 27 WBC 10.1 10^3/uL 4.2 - 11.0 RBC 4.55 10^6/uL 4.20 - 5.40 Hemoglobin 13.7 g/dL 12.0 - 16.0 Hematocrit 41.2 % 37.0 - 47.0 MCV 90.5 fL 81.0 - 101 MCH 30.1 pg 27.0 - 34.0 MCHC 33.3 g/dL 31.0 - 36.0 RDW 15.1 % High 11.5 - 14.5 Platelets 259 10^3/uL 150 - 450 MPV 9.1 fL 7.4 - 10.4 Neut 54.3 % 37.0 - 80.0 Lymph 34.6 % 25.0 - 40.0 Pope 7.5 % 3.0 - 8.0 Eos 2.8 % 0.0 - 7.0 Baso 0.4 % 0.0 - 2.5 %Ig 0.4 % High 0.0 - 0.0 %NRBC 0.0 % 0.0 - 0.0 #Neut 5.48 10^3/uL 2.00 - 6.90 #Lymph 3.49 10^3/uL High 0.60 - 3.40 #Pope 0.76 10^3/uL 0.00 - 0.90 #Eos 0.28 10^3/uL 0.00 - 0.70 #Baso 0.04 10^3/uL 0.00 - 0.20 #Ig 0.04 10^3/uL 0.00 - 0.10 #NRBC 0.00 10^3/uL 0.00 - 0.00 Manual Diff NOT INDICATED RBC Morph NOT INDICATED Laboratory test finding 11[facility]17/[address] [facility] Vitamin B12 Serum 204 pg/mL Low 232 - 1245 Vitamin D (25-Hydroxy) 19 NG/ML 28 Comprehensive Metabolic Panel 11/17/2020 [facility] Comprehensive Metabo (SEE NOTE) 29 Sodium 138 mEq/L 134 - 153 Potassium 4.2 mEq/L 3.6 - 5.0 Chloride 104 mEq/L 98 - 107 Co2 24 mEq/L 22 - 30 Glucose 106 mg/dL High 70 - 99 BUN 8 mg/dL 7 - 21 Creatinine 0.6 mg/dL Low 0.7 - 1.5 BUN/Creat 13 8 - 27 Total Protein 6.8 g/dL 6.3 - 8.2 Albumin 4.5 g/dL 3.9 - 5.0 Globulin 2.3 GM/DL Low 2.4 - 3.2 A/G Ratio 2.0 0.8 - 2.0 Calcium 9.3 mg/dL 8.4 - 10.2 Total Bili <0.7 mg/dL 0.2 - 1.3 Alkaline Phos 89 U/L 38 - 126 Sgot/Ast 16 U/L 5 - 40 SGPT/Alt 7 U/L 7 - 56 Anion Gap 10.0 mmol/L 8.0 - 16.0 Age 35 yrs Non-Aa GFR >60 mL/min Afr Amer GFR >60 mL/min 30 Laboratory test finding 11/09/2020 [facility] T4 - Free 1.27 ng/dL 0.93 - 1.70 TSH Highly Sensitive 0.34 uIU/mL Low 0.47 - 5.01 Inhouse-Influenza A&B Rna Prob 09/25/2020 In Office Influenza Virus A QL PCR negative Negative Influenza Virus B QL PCR negative Negative Laboratory test finding 09/25/2020 [facility] Coronavirus Covid-19 Not Detected Not Detected 31 1 Negative <0.91 Equivocal 0.91 - 1.09 Positive >1.09 Note: Negative indicates no antibodies detected to HSV-1. Equivocal may suggest early infection. If clinically appropriate, retest at later date. Positive indicates antibodies detected to HSV-1. 2 Negative <0.91 Equivocal 0.91 - 1.09 Positive >1.09 Note: Negative indicates no antibodies detected to HSV-2. Equivocal may suggest early infection. If clinically appropriate, retest at later date. Positive indicates antibodies detected to HSV-2. 3 HSV-2 IgG HSV-2 IgG Type Specific Confirmation Interpretation Positive/Equivocal Positive Indicates the presence of detectable IgG antibodies to HSV-2. Positive/Equivocal Negative Unable to confirm the presence of IgG antibodies to HSV-2. Recommend retesting in 2-4 weeks. 4 .~.~<DG1.3.1>D51.9</DG1.3.1><DG1.3.1>D51.9</DG1.3.1><DG1.3.1>E55.9</DG1.3.1><DG1 .3.1 Is patient fasting? N~.~.~<DG1.3.1>D51.9</DG1.3.1><DG1.3.1> D51.9</DG1.3.1><DG1.3.1>E55.9</DG1.3. .~.~<DG1.3.1>D51.9</DG1.3.1><DG1.3.1>D51.9</DG1.3.1><DG1.3.1>E55.9</DG1.3.1><DG1 .3.1 .~.~<DG1.3.1>D51.9& lt;/DG1.3.1><DG1.3.1>D51.9</DG1.3.1><DG1.3.1>E55.9</DG1.3.1><DG1.3.1 .~.~<DG1.3.1>D51.9</DG1.3.1><DG1.3.1>D51.9</DG1.3.1><DG1.3.1>E55.9</DG1.3.1><DG1 .3.1 5 F0 - No fibrosis 6 Quantitative results of 6 bi ochemical tests are analyzed using a computational algorithm to provide a quantitative surrogate marker (0.0-1.0) for liver fibrosis (METAVIR F0-F4) and for necroinflammatory activity (METAVIR A0-A3). 7 <=0.21 = Stage F0 - No fibro sis 0.21 - 0.27 = Stage F0 - F1 0.27 - 0.31 = Stage F1 - Portal fibrosis 0.31 - 0.48 = Stage F1 - F2 0.48 - 0.58 = Stage F2 - Bridging fibros is with few septa 0.58 - 0.72 = Stage F3 - Bridging fibros is with many septa 0.72 - 0.74 = Stage F3 - F4 >0.74 = Stage F4 - Cirrhosis 8 <0.17 = Grade A0 - No Activi ty 0.17 - 0.29 = Grade A0 - A1 0.29 - 0.36 = Grade A1 - Minimal activit y 0.36 - 0.52 = Grade A1 - A2 0.52 - 0.60 = Grade A2 - Moderate activi ty 0.60 - 0.62 = Grade A2 - A3 >0.62 = Grade A3 - Severe activity 9 The negative predictive valu e of a Fibrotest score <0.31 (absence of clinically significant fibrosis) was 85% when compared to liver biopsy in 1,270 HCV infected patients with a 38% prevalence of significant liver fibrosis (F2, 3 or 4). The positive predictive value of a Fibro- test score >0.48 (F2, 3, 4) was 61% in that same patient cohort. HCV FibroSURE is not recommended in patients with Gilbert Disease, acute hemolysis (e.g. HCV ribavirin therapy mediated hemolysis) acute hepa- titis of the liver, extra-hepatic cholestasis, transplant patients, and/or renal insufficiency patients. Any of these clinical situations may lead to inaccurate quantitative predictions of fibrosis and necroinflammatory activity in the liver. 10 Negative <0.91 Equivocal 0.91 - 1.09 Positive >1.09 11 COMPREHENSIVE METABOLIC PANE L 12 Male GFR Interprentation 20-49 yrs >60 mL/min Normal 50-59 yrs >56 mL/min Normal 60-69 yrs >49 mL/min Normal 70-79yrs >42 mL/min Normal 80 and above >35 mL/min Normal Female GFR Interpretation 20-39 yrs >60 mL/min Normal 40-49 yrs >58 mL/min Normal 50-59 yrs >51 mL/min Normal 60-69 yrs >45 mL/min Normal 70-79 yrs >39 mL/min Normal 80 and above >32 mL/min Normal 13 VITAMIN-D(25HYDROXY) Deficiency: <=20 ng/ml Insufficiency: 21-29 ng/ml Preferred level: => 30 ng/ml 14 COMPLETE BLOOD COUNT 15 .~.~Z11.59 16 This nucleic acid amplificat ion test was developed and its performance characteristics determined by [employer]. Nucleic acid amplification tests include RT-PCR and TMA. This test has not been FDA cleared or approved. This test has been authorized by FDA under an Emergency Use Authorization (EUA). This test is only authorized for the duration of time the declaration that circumstances exist justifying the authorization of the emergency use of in vitro diagnostic tests for detection of SARS-CoV-2 virus and/or diagnosis of COVID-19 infection under section 564(b)(1) of the Act, 21 U.S.C. 360bbb-3(b) (1), unless the authorizatio n is terminated or revoked sooner. When diagnostic testing is negative, the possibility of a false negative result should be considered in the context of a patient's recent exposures and the presence of clinical signs and symptoms consistent with COVID-19. An individual without symptoms of COVID-19 and who is not shedding SARS-CoV-2 virus would expect to have a negative (not detected) result in this assay. 17 .~.~R30.0 18 _CULTURE URINE_ ^$[id number] ^^[id number] $$450933 ^^320981 $$084372 $$440360 $$620571 $$509393 $$906823 $$784530 $$882463 $$345421 $$231999 $$343878 $$161381 $$972766 $$168330 $$487060 $$082039 $$505539 $$386081 $$716535 $$816363 $$349027 $$561447 $$597390 $$553445 ^^625591 $$662360 $$967059 $$648656 -- Continued on next page -- Patient: OSORIO Lind Order: [id number] Page 2 Culture: CULTURE URINE Status: Final -- Continued on next page -- Patient: OSORIO Lind Order: [id number] Page 2 Culture: CULTURE URINE Status: Prelim -- Continued on next page -- Patient: OSORIO Lind Order: [id number] Page 2 Culture: CULTURE URINE Status: Prelim $$[id number] $$[id number] REPORTED DATE/TIME: 02/24/2021 12:06 Culture: CULTURE URINE Status: Final Isolate 1 Escherichia coli Flag: A . . . . . . .1 Greater than 100,000 colony forming units per mL Cefazolin <=4 ug/mL Cefazolin with an BEATRIS <=16 predicts susceptibility to the oral agents cefaclor, cefdinir, cefpodoxime, cefprozil, cefuroxime, cephalexin, and loracarbef when used for therapy of uncomplicated urinary tract infections due to E. coli, Klebsiella pneumoniae, and Proteus mirabilis. Previous result entered on 02/23/2021 09:26 ET Escherichia coli Susceptibility results being verified. Final report to follow. Previous result entered on 02/21/2021 07:12 ET Gram negative rods Urine Culture,Comprehensive: P1 Escherichia coli Flag: A Patient: OSORIO Lind Order: [id number] Page 3 Culture: CULTURE URINE Status: Final ISOLATE 1 Escherichia coli Isolate 1 Antibiotic BEATRIS Int Units ug/mL Amoxicillin/Clavulanic Acid S S . . . . . .20-8 Ampicillin S S . . . . . .28-1 Cefepime S S . . . . . .6644-9 Ceftriaxone S S . . . . . .141-2 Cefuroxime S S . . . . . .145-3 Ciprofloxacin S S . . . . . .185-9 Ertapenem S S . . . . . .14312-8 Gentamicin S S . . . . . .267-5 Imipenem S S . . . . . .279-0 Levofloxacin S S . . . . . .77071-2 Meropenem S S . . . . . .6652-2 Nitrofurantoin S S . . . . . .363-2 Piperacillin/Tazobactam S S . . . . . .412-7 Tetracycline S S . . . . . .496-0 Tobramycin S S . . . . . .508-2 Trimethoprim/Sulfa S S . . . . . .516-5 P1 Test performed by: [facility] #: [id number] [address] [place] [address] [phone] [facility] [address] [employer] Police Officer : Pacheco Castillo MD NPI #: Leaf [facility] : 02/22/[id number].SENT REF 02/23/[id number].SENT REF 02/24/[id number].SENT REF 19 URINALYSIS 20 HYPAE YEAST 21 {SOURCE: Genital 22 This nucleic acid amplificat ion test was developed and its performance characteristics determined by [employer]. Nucleic acid amplification tests include RT-PCR and TMA. This test has not been FDA cleared or approved. This test has been authorized by FDA under an Emergency Use Authorization (EUA). This test is only authorized for the duration of time the declaration that circumstances exist justifying the authorization of the emergency use of in vitro diagnostic tests for detection of SARS-CoV-2 virus and/or diagnosis of COVID-19 infection under section 564(b)(1) of the Act, 21 U.S.C. 360bbb-3(b) (1), unless the authorizatio n is terminated or revoked sooner. When diagnostic testing is negative, the possibility of a false negative result should be considered in the context of a patient's recent exposures and the presence of clinical signs and symptoms consistent with COVID-19. An individual without symptoms of COVID-19 and who is not shedding SARS-CoV-2 virus would expect to have a negative (not detected) result in this assay. 23 note:<nlbl:romeo_dolores ed> 24 Units are mL/min/1.73 m2 Chronic Kidney Disease Staging per NKF: Stage I & II GFR >=60 Normal to Mildly Decreased Stage III GFR 30-59 Moderately Decreased Stage IV GFR 15-29 Severely Decreased Stage V GFR <15 Very Little GFR Left ESRD GFR <15 on TIE UP WORKER 25 This nucleic acid amplificat ion test was developed and its performance characteristics determined by [employer]. Nucleic acid amplification tests include RT-PCR and TMA. This test has not been FDA cleared or approved. This test has been authorized by FDA under an Emergency Use Authorization (EUA). This test is only authorized for the duration of time the declaration that circumstances exist justifying the authorization of the emergency use of in vitro diagnostic tests for detection of SARS-CoV-2 virus and/or diagnosis of COVID-19 infection under section 564(b)(1) of the Act, 21 U.S.C. 360bbb-3(b) (1), unless the authorizatio n is terminated or revoked sooner. When diagnostic testing is negative, the possibility of a false negative result should be considered in the context of a patient's recent exposures and the presence of clinical signs and symptoms consistent with COVID-19. An individual without symptoms of COVID-19 and who is not shedding SARS-CoV-2 virus would expect to have a negative (not detected) result in this assay. 26 Is patient fasting? N 27 COMPLETE BLOOD COUNT 28 VITAMIN-D(25HYDROXY) Deficiency: <=20 ng/ml Insufficiency: 21-29 ng/ml Preferred level: => 30 ng/ml 29 COMPREHENSIVE METABOLIC PANE L 30 Male GFR Interprentation 20-49 yrs >60 mL/min Normal 50-59 yrs >56 mL/min Normal 60-69 yrs >49 mL/min Normal 70-79yrs >42 mL/min Normal 80 and above >35 mL/min Normal Female GFR Interpretation 20-39 yrs >60 mL/min Normal 40-49 yrs >58 mL/min Normal 50-59 yrs >51 mL/min Normal 60-69 yrs >45 mL/min Normal 70-79 yrs >39 mL/min Normal 80 and above >32 mL/min Normal 31 This nucleic acid amplificat ion test was developed and its performance characteristics determined by [employer]. Nucleic acid amplification tests include RT-PCR and TMA. This test has not been FDA cleared or approved. This test has been authorized by FDA under an Emergency Use Authorization (EUA). This test is only authorized for the duration of time the declaration that circumstances exist justifying the authorization of the emergency use of in vitro diagnostic tests for detection of SARS-CoV-2 virus and/or diagnosis of COVID-19 infection under section 564(b)(1) of the Act, 21 U.S.C. 360bbb-3(b) (1), unless the authorizatio n is terminated or revoked sooner. When diagnostic testing is negative, the possibility of a false negative result should be considered in the context of a patient's recent exposures and the presence of clinical signs and symptoms consistent with COVID-19. An individual without symptoms of COVID-19 and who is not shedding SARS-CoV-2 virus would expect to have a negative (not detected) result in this assay. Procedures Date Code Description Status 02/17/2021 77863 Office/Outpatient Established Lo w MDM 20-29 Min Completed 02/17/2021 60599 Office/Outpatient New Low MDM 30 -44 Minutes Completed 02/17/2021 30526 Admin Patient Focused Health Ris k Assessment Instrument Completed 02/17/2021 91637 Brief Emotional/Beha v Assessment W/ Scoring Doc Per Standard Inst Completed 02/10/2021 99022 Office/Outpatient Established Mo d MDM 30-39 Min Completed 01/29/2021 21975 Office Visit New Level 1 Complet ed 01/24/2021 20615 Office/Outpatient Established Lo w MDM 20-29 Min Completed 01/24/2021 56263 Pulse Oximetry Single Determinat ion Completed 11/17/2020 26198 Office/Outpatient Established Lo w MDM 20-29 Min Completed 11/09/2020 19939 Office/Outpatient Established Mo d MDM 30-39 Min Completed 10/06/2020 84940 Office/Outpatient Established Lo w MDM 20-29 Min Completed 10/03/2020 55936 Office/Outpatient Established Lo w MDM 20-29 Min Completed 09/25/2020 60261 Office/Outpatient Established Lo w MDM 20-29 Min Completed 09/12/2020 24034 Office Visit New Level 1 Complet ed Medical Devices Description No Information Available Encounters Description No Information Available Assessments Date Code Description Provider 03/10/2021 F31.60 Bipolar disorder, current episod e mixed, unspecified MICHELET Lal, CASAC 03/10/2021 F12.20 Cannabis dependence, uncomplicat ed MICHELET Lal, CASAC 02/24/2021 F31.60 Bipolar disorder, current episod e mixed, unspecified MICHELET Lal, CASAC 02/24/2021 F12.20 Cannabis dependence, uncomplicat ed MICHELET Lal, CASAC 02/17/2021 B37.3 Candidiasis of vulva and vagina Jessica Antoine, BAYRON 02/17/2021 Z11.3 Encounter for screen ing for infections with a predominantly sexual mode of transmission Jessica Antoine, BAYRON 02/17/2021 G43.009 Migraine without aur a, not intractable, without status migrainosus Juan Storey MD 02/17/2021 E55.9 Vitamin D deficiency, unspecifie d Juan Storey MD 02/17/2021 D51.9 Vitamin B12 deficiency anemia, u nspecified Juan Storey MD 02/10/2021 F31.60 Bipolar disorder, current episod e mixed, unspecified Nolan Avalos PA-C 02/10/2021 F12.20 Cannabis dependence, uncomplicat ed Nolan Avalos PA-C 02/10/2021 F10.11 Alcohol abuse, in remission Trenton Avalos PA-C 01/29/2021 J06.9 Acute upper respiratory infectio n, unspecified Maxi Hunter PA-C 01/24/2021 A09 Infectious gastroenteritis and c olitis, unspecified Lydia Vidal PA-C 01/22/2021 F31.60 Bipolar disorder, current episod e mixed, unspecified MICHELET Lal, CASAC 01/22/2021 F12.20 Cannabis dependence, uncomplicat ed MICHELET Lal, CASAC 01/22/2021 F10.11 Alcohol abuse, in remission MICHELET Cui, CASAC 12/23/2020 F31.60 Bipolar disorder, current episod e mixed, unspecified Olivia Rowland [place], CASAC 12/23/2020 F12.20 Cannabis dependence, uncomplicat ed Olivia Rowland [place], CASAC 12/23/2020 F10.11 Alcohol abuse, in remission Armand Rowland LM, CASAC 11/18/2020 F31.60 Bipolar disorder, current episod e mixed, unspecified Olivia Rowland [place], CASAC 11/18/2020 F12.20 Cannabis dependence, uncomplicat ed Olivia Rowland [place], CASAC 11/18/2020 F10.11 Alcohol abuse, in remission Armand Rowland [place], CASAC 11/17/2020 G43.009 Migraine without aur a, not intractable, without status migrainosus Juan Storey MD 11/17/2020 E55.9 Vitamin D deficiency, unspecifie d Juan Storey MD 11/17/2020 J30.9 Allergic rhinitis, unspecified H abigail Storey MD 11/17/2020 D69.3 Immune thrombocytopenic purpura Juan Storey MD 11/17/2020 E61.1 Iron deficiency Juan Storey MD 11/09/2020 F31.60 Bipolar disorder, current episod e mixed, unspecified Nolan Avalos PA-C 11/09/2020 F12.20 Cannabis dependence, uncomplicat ed Nolan Avalos PA-C 11/09/2020 F10.11 Alcohol abuse, in remission Trenton Avalos PA-C 10/14/2020 F31.60 Bipolar disorder, current episod e mixed, unspecified Olivia Rowland [place], CASAC 10/14/2020 F12.20 Cannabis dependence, uncomplicat ed Olivia Rowland [place], CASAC 10/14/2020 F10.11 Alcohol abuse, in remission Armand Rowland [place], CASAC 10/06/2020 M62.830 Muscle spasm of back Lamine Mcginnis favianliu, RESEARCH CLERK 10/03/2020 G43.009 Migraine without aur a, not intractable, without status migrainosus Eloise Cheema PA-C 09/25/2020 R05 Cough Beck Johnson NP 09/16/2020 F31.60 Bipolar disorder, current episod e mixed, unspecified MICHELET Lal, ANUPAMA 09/16/2020 F12.20 Cannabis dependence, uncomplicat ed MICHELET Lal, ANUPAMA 09/16/2020 F10.11 Alcohol abuse, in remission MICHELET Cui, ANUPAMA 09/12/2020 G43.009 Migraine without aur a, not intractable, without status migrainosus Javier Cruz PA-C Plan of Treatment Future Appointment(s):* 03/24/2021 5:00 pm - MICHELET Lal CASAC at [facility]al Health * 03/30/2021 1:40 pm - Nolan Avalos PA-C at Behavioral Health * 05/27/2021 1:00 pm - Juan Storey MD at Family [facility] * 03/11/2021 10:00 am - Jessica Antoine NP at [facility] * 03/23/2021 2:40 pm - Nolan Avalos PA-C at Behavioral Health * 03/23/2021 2:00 pm - MICHELET Lal CASAC at Behavioral Health 01/29/2021 - Maxi Hutner PA-C* J06.9 Acute upper respiratory infection, unspecified Functional Status Description No Information Available Mental Status Description No Information Available Referrals Description No Information Available
--- OUTSIDE RECORDS SUMMARY | 2021-03-17 19:24 | CCD | Continuity of Care Document ---
Author Kimberley Munoz [facility] Organization Unknown Address [facility] [address] [place] [address] Phone [phone] Care Team Providers Care Assistant Manager Name Role Phone Juan Storey M.D. AUTM [phone] [facility] AUTM [phone] Problems Active Problems Provider Date Migraine with [...] a current smoker, smo kes every day MAYCO: 10/19/2019 Estimated Date of Delivery Based on [...] Yon Cota 05/22/2020 Vitamin D (Ergocalciferol) 1.25mg (09513 Ut) Capsules 1 cap by mouth every [...] CPT Code Status Date Vaccine Lot # [id number] Given 02/24/2020 Influenza (>= 6 Months) P.F. Vaccine [id number] Given 03/27/2018 Influenza (>= 6 Months) P.F. 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 3 Laboratory test finding 02/26/2021 [facility] Vitamin B12 Serum 353 pg/mL 232 - 1245 4 HCV Fibrosure 02/26/2021 [facility] Fibrosis Score 0.02 NA 0.00-0.21 Fibrosis Stage [...] WILL FOLLOW Herpes I&II Igm AB 02/26/2021 [facility] HSV, IgM I/II Combination <0.91 Ratio 0.00-0.90 10 HIV Panel 02/26/2021 [facility] HIV Screen 4thGeneration wRfx Non Reactive Non Reacti ve Laboratory test finding 02/26/2021 [facility] Syphilis NON-REACTIVE Normal:Non Reactive Hepatitis B Surf Antigen NONREACTIVE Normal:Non React estephanie Hep C Antibody With Reflex Quant PCR <0.1 s/coratio 0. 0-0.9 Comprehensive Metabolic Panel 02/26/2021 [facility] Comprehensive Metabo (SEE NOTE) 11 Sodium [...] >60 mL/min 12 Laboratory test finding 02/26/2021 [facility] Ferritin Krysta 47.6 ng/mL 3.0 - 105 Iron Binding Capacity 02/26/2021 [facility] Iron 45 g/dL 42 - 135 Uibc 215 g/dL 112 - 347 Tibc 260 g/dL 250 - 450 Iron Sat 17 % Laboratory test finding 02/26/2021 [facility] Vitamin D (25-Hydroxy) 23 NG/ML 13 CBC W/Automated Diff 02/26/2021 [facility] CBC W/Automated Diff (SEE NOTE) 14 WBC [...] Lymph 24.8 % Low 25.0 - 40.0 Carolina 6.6 % 3.0 - 8.0 Eos 1.4 % 0.0 - 7.0 Baso 0.2 % 0.0 - 2.5 %Ig 0.3 % High 0.0 - 0.0 %NRBC 0.0 % 0.0 - 0.0 #Neut 8.36 10^3/uL High 2.00 - 6.90 #Lymph 3.12 10^3/uL 0.60 - 3.40 #Carolina 0.83 10^3/uL 0.00 - 0.90 #Eos 0.18 10^3/uL 0.00 - 0.70 #Baso 0.03 10^3/uL 0.00 - 0.20 #Ig 0.04 10^3/uL 0.00 - 0.10 #NRBC 0.00 10^3/uL 0.00 - 0.00 Manual Diff NOT INDICATED RBC Morph NOT INDICATED Covid-19 02/22/2021 [facility] Sars-CoV-2, Tracey Not Detected Not Detected 15, 16 Sars-CoV-2, Tracey 2 Day Tat Performed Cuture Urine 02/17/2021 [facility] Culture Urine (SEE NOTE) 17, 18 Ua With Reflex To Ua Culture 02/17/2021 [facility] spital Ua Reflex To Ua Cult (SEE NOTE) 19 Source R Color yellow Normal: Yellow Clarity hazy Normal: Clear Spec [place] 1.020 1.001 - 1.030 pH 6 5 [...] Yeast Few Abnormal 20 Chlamydia GC/Trich 02/17/2021 [facility] Source: Genital 21 Chlamydia by Tracey Negative Negative Gonococcus by Tracey Negative Negative Trich vag by Tracey Negative Negative Bacterial Vaginosis 02/17/2021 [facility] Source: Genital Isabela species Positive Abnormal Negative Gardnerella vaginalis Positive Abnormal Negative Trichomonas vaginalis Negative Negative Chlamydia/GC 02/17/2021 [facility] Chlam Trach QL Dna Probe <pending> GC By Dna Cervical Mucus <pending> Affirm Vaginitis Panel 02/17/2021 [facility] Z#Other Observations <pending> Covid-19 01/24/2021 [facility] Sars-CoV-2, Tracey Not Detected Not Detected 22 Sars-CoV-2, Tracey 2 Day Tat Performed Laboratory test finding 01/06/2021 [facility] Ferritin 73 NG/ML Normal 8-252 23 Total Iron Binding Capacit 01/06/2021 [facility] Iron (Fe) 78 g/dL Normal 50-170 Total Iron Binding Capacity 256 g/dL Normal 250-450 Percent Saturation 30.5 % Normal 13.2-45.0 Comprehensive Metabolic Profil 01/06/2021 [facility] Glucose, Fasting 109 mg/dL High 70-100 Blood [...] 1.2 Normal 1.2-2.2 CBC With Differential 01/06/2021 [facility] White Blood Count 9.9 10 Normal 4.0-10.0 [...] 36.0-66.0 Lymph % 27.1 % Normal 24.0-44.0 Carolina % 6.4 % Normal 2.0-8.0 Eos % 1.5 % Normal 0.0-3.0 Baso % 0.3 % Normal 0.0-1.0 Immature Granulocyte % 0.4 % Normal 0-3.0 Nucleated Red Blood Cell % 0.0 % Normal 0-0 Neutrophils # 6.4 10 Normal 1.5-8.5 Lymph # 2.7 10 Normal 1.5-5.0 Carolina # 0.6 10 Normal 0.0-0.8 Eos # 0.2 10 Normal 0.0-0.5 Baso # 0.0 10 Normal 0.0-0.2 Covid-19 11/20/2020 [facility] Sars-CoV-2, Tracey Not Detected Not Detected 25 Sars-CoV-2, Tracey 2 Day Tat Performed Laboratory test finding 11/17/2020 [facility] l Ferritin Krysta 63.5 ng/mL 3.0 - 105 26 Iron Binding Capacity 11/17/2020 [facility] Iron 58 g/dL 42 - 135 Uibc 173 g/dL 112 - 347 Tibc 231 g/dL Low 250 - 450 Iron Sat 25 % CBC W/Automated Diff 11/17/2020 [facility] CBC W/Automated Diff (SEE NOTE) 27 WBC [...] 80.0 Lymph 34.6 % 25.0 - 40.0 Carolina 7.5 % 3.0 - 8.0 Eos 2.8 % 0.0 - 7.0 Baso 0.4 % 0.0 - 2.5 %Ig 0.4 % High 0.0 - 0.0 %NRBC 0.0 % 0.0 - 0.0 #Neut 5.48 10^3/uL 2.00 - 6.90 #Lymph 3.49 10^3/uL High 0.60 - 3.40 #Carolina 0.76 10^3/uL 0.00 - 0.90 #Eos 0.28 10^3/uL 0.00 - 0.70 #Baso 0.04 10^3/uL 0.00 - 0.20 #Ig 0.04 10^3/uL 0.00 - 0.10 #NRBC 0.00 10^3/uL 0.00 - 0.00 Manual Diff NOT INDICATED RBC Morph NOT INDICATED Laboratory test finding [facility]17[facility] Vitamin B12 Serum 204 pg/mL Low 232 - 1245 Vitamin D (25-Hydroxy) 19 NG/ML 28 Comprehensive Metabolic Panel 11/17/2020 [facility] Comprehensive Metabo (SEE NOTE) 29 [...] >60 mL/min 30 Laboratory test finding 11/09/2020 [facility] l T4 - Free 1.27 ng/dL 0.93 - 1.70 TSH Highly Sensitive 0.34 uIU/mL Low 0.47 - 5.01 Inhouse-Influenza A&B Rna Prob 09/25/2020 In Office Influenza Virus A QL PCR negative Negative Influenza Virus B QL PCR negative Negative Laboratory test finding 09/25/2020 [facility] Coronavirus Covid-19 Not Detected Not [...] developed and its performance characteristics determined by [employer]. Nucleic acid amplification tests include RT-PCR and [...] this assay. 17 .~.~R30.0 18 _CULTURE URINE_ ^$930004 ^^249802 $$902121 ^^739233 $$107283 $$269665 $$553654 $$682640 $$476637 $$973930 $$831258 $$121474 $$335368 $$127689 $$810286 $$409505 $$198301 $$207997 $$627298 $$770480 $$987670 $$945229 $$185367 $$961428 $$378469 $$318432 $$954856 ^^777581 $$332199 $$709946 $$062301 -- Continued on next page -- Patient: OSORIO Lind Order: [id number] Page 2 Culture: CULTURE URINE Status: Final -- Continued on next page -- Patient: OSORIO Lind Order: [id number] Page 2 Culture: CULTURE URINE Status: Prelim -- Continued on next page -- Patient: OSORIO Lind Order: [id number] Page 2 Culture: CULTURE URINE Status: Prelim $$[id number] $$[id number] REPORTED DATE/TIME: 02/24/2021 12:06 Culture: CULTURE URINE [...] coli Flag: A Patient: OSORIO Lind Order: [id number] Page 3 Culture: CULTURE URINE Status: Final [...] S S . . . . . .80843-7 Gentamicin S S . . . . . .267-5 Imipenem S S . . . . . .279-0 Levofloxacin S S . . . . . .93667-0 Meropenem S S . . . . . .6652-2 Nitrofurantoin S S . . . . . .363-2 Piperacillin/Tazobactam S S . . . . . .412-7 Tetracycline S S . . . . . .496-0 Tobramycin S S . . . . . .508-2 Trimethoprim/Sulfa S S . . . . . .516-5 P1 Test performed by: [employer] [facility] #: [id number] [address] [place] [address] Avenue [id number] [facility] [id number] Assistant Oceanographer : Pacheco Castillo MD NPI #: Docketing Specialist : 02/22/[email or web address] REF 02/23/21.1623.XMT.SENT REF 02/24/21.1406.XMT.SENT REF 19 URINALYSIS 20 HYPAE YEAST 21 {SOURCE: Genital 22 This nucleic acid amplificat ion test was developed and its performance characteristics determined by [employer]. Nucleic acid amplification tests include RT-PCR and [...] Little GFR Left ESRD GFR <15 on PLANT [employer]ILITY PERSON 25 This nucleic acid amplificat ion test was developed and its performance characteristics determined by [employer]. Nucleic acid amplification tests include RT-PCR and [...] developed and its performance characteristics determined by [employer]. Nucleic acid amplification tests include RT-PCR and [...] assay. Procedures Date Code Description Status 02/17/2021 61254 Office/Outpatient Established Lo w MDM 20-29 Min Completed 02/17/2021 14091 Office/Outpatient New Low MDM 30 -44 Minutes Completed 02/17/2021 26813 Admin Patient Focused Health Ris k Assessment Instrument Completed 02/17/2021 89102 Brief Emotional/Beha v Assessment W/ Scoring Doc Per Standard Inst Completed 02/10/2021 72641 Office/Outpatient Established Mo d MDM 30-39 Min Completed 01/29/2021 01351 Office Visit New Level 1 Complet ed 01/24/2021 43340 Office/Outpatient Established Lo w MDM 20-29 Min Completed 01/24/2021 71357 Pulse Oximetry Single Determinat ion Completed 11/17/2020 63960 Office/Outpatient Established Lo w MDM 20-29 Min Completed 11/09/2020 11659 Office/Outpatient Established Mo d MDM 30-39 Min Completed 10/06/2020 34271 Office/Outpatient Established Lo w MDM 20-29 Min Completed 10/03/2020 40316 Office/Outpatient Established Lo w MDM 20-29 Min Completed 09/25/2020 13775 Office/Outpatient Established Lo w MDM 20-29 Min Completed 09/12/2020 83064 Office Visit New Level 1 Complet ed [...] current episod e mixed, unspecified Olivia Rowland [facility], CASAC 12/23/2020 F12.20 Cannabis dependence, uncomplicat ed Olivia Rowland [facility], CASAC 12/23/2020 F10.11 Alcohol abuse, in remission Armand Rowland LM, CASAC 11/18/2020 F31.60 Bipolar disorder, current episod e mixed, unspecified Olivia Rowland [facility], CASAC 11/18/2020 F12.20 Cannabis dependence, uncomplicat ed Olivia Rowland [facility], CASAC 11/18/2020 F10.11 Alcohol abuse, in remission Armand Rowland [facility], CASAC 11/17/2020 G43.009 Migraine without aur a, [...] current episod e mixed, unspecified Olivia Rowland [facility], CASAC 10/14/2020 F12.20 Cannabis dependence, uncomplicat ed Olivia Rowland [facility], CASAC 10/14/2020 F10.11 Alcohol abuse, in remission Armand Rowland [facility], CASAC 10/06/2020 M62.830 Muscle spasm of back Lamine Mcginnis favianliu, CMM OPERATOR 10/03/2020 G43.009 Migraine without aur a, not [...] pm - Juan Storey MD at Family [facility] * 03/11/2021 10:00 am - Jessica Antoine NP at [facility] * 03/23/2021 2:40 pm - Nolan Avalos PA-C at Behavioral Health * 03/23/2021 2:00 pm - MICHELET Lal CASAC at Behavioral Health 01/29/2021 - Maxi Hunter PA-C* J06.9 Acute upper respiratory infection, unspecified Functional Status Description No Information Available Mental Status Description No Information Available Referrals Description No Information Available
--- OUTSIDE RECORDS SUMMARY | 2021-03-17 19:24 | CCD | Continuity of Care Document ---
Author Kimberley Munoz [facility] Organization Unknown Address [facility] [address] [place] [address] Phone [phone] Care Team Providers Care Script Worker Name Role Phone Juan Storey M.D. AUTM [phone] [facility] AUTM [phone] [facility] AUTM [facility] AUTM Problems Active Problems [...] Storey MD Onset: 09/26/2016 Mood disorder Nolan Aavlos PA-C Onset: 08/17/2017 Personality disorder Craig Erazo [...] Date of Delivery Based on Final MAYCO Allergies and adverse reactions Active Allergies Criticality Reaction | Severity Comments [...] Yon Cota 05/22/2020 Vitamin D (Ergocalciferol) 1.25mg (61131 Ut) Capsules 1 cap by mouth every [...] CPT Code Status Date Vaccine Lot # [id number] Given 02/24/2020 Influenza (>= 6 Months) P.F. Vaccine [id number] Given 03/27/2018 Influenza (>= 6 Months) P.F. [...] Date Facility Test Result H/L Range Note Covid And Flu 03/12/2021 [facility] Influenza A Amplification NEGATIVE Normal Negative 1 Influenza B Amplification NEGATIVE Normal Negative 2 RSV Amplification NEGATIVE Normal Negative 3 Sars Covid-19 Amplification NEGATIVE Normal Negative 4 Laboratory test finding 03/12/2021 [facility] [place] Level 0.34 mEq/L Low 0.60-1.20 5 Liver Profile 03/12/2021 [facility] Ast/Sgot 19 U/L Normal 7-37 Alt/SGPT 23 U/L Normal 12-78 Alkaline Phosphatase 83 U/L Normal 45-117 Bilirubin,Total 0.7 mg/dL Normal 0.2-1.0 Bilirubin,Direct 0.2 mg/dL Normal 0.0-0.2 Total Protein 8.1 GM/DL Normal 6.4-8.2 Albumin 4.4 GM/DL Normal 3.2-5.2 Albumin/Globulin Ratio 1.2 Normal 1.2-2.2 Basic Metabolic Profile 03/12/2021 [facility] Glucose, Fasting 96 mg/dL Normal 70-100 Blood Urea Nitrogen 18 mg/dL Normal 7-18 Creatinine For GFR 1.05 mg/dL Normal 0.55-1.30 Glomerular Filtration Rate > 60.0 Normal >60 6 Sodium Level 141 mEq/L Normal 136-145 Potassium Serum 3.8 mEq/L Normal 3.5-5.1 Chloride Level 107 mEq/L Normal 98-107 Carbon Dioxide Level 26 mEq/L Normal 21-32 Anion Gap 8 mEq/L Normal 8-16 Calcium Level 10.2 mg/dL High 8.5-10.1 Laboratory test finding 03/12/2021 [facility] Ethyl Alcohol (Ethanol) < 0.003 % Normal 0.000-0.010 7 Salicylate Level 5.4 mg/dL Normal 5.0-30.0 8 Acetaminophen Level < 2.0 UG/ML Low 10.0-30.0 9 Thyroid Stimulating Hormone 0.283 uIU/ML Low 0.358-3.740 10 HCG Serum Qualitative NEGATIVE Normal Negative 11 Drug Eval Toxicology ED Only 03/12/2021 [facility] Raul Amphetamines Level Urine NEGATIVE Normal Negative Barbiturates Urine NEGATIVE Normal Negative Benzodiazepines Urine NEGATIVE Normal Negative Cannabinoids Urine POSITIVE High Negative Cocaine Metabolite Urine POSITIVE High Negative Methadone Urine NEGATIVE Normal Negative Opiates Urine NEGATIVE Normal Negative Phencyclidine Urine NEGATIVE Normal Negative 12 Complete Blood Count 03/12/2021 [facility] White Blood Count 17.0 10 High 4.0-10.0 Red Blood Count 4.67 10 Normal 4.00-5.40 Hemoglobin 14.4 g/dL Normal 12.0-15.5 Hematocrit 44.1 % Normal 36.0-47.0 Mean Corpuscular Volume 94.4 fl Normal 80.0-96.0 Mean Corpuscular Hemoglobin 30.8 pg Normal 27.0-33.0 Mean Corpuscular HGB Conc 32.7 g/dL Normal 32.0-36.5 Red Cell Distribution Width 13.5 % Normal 11.5-14.5 Platelet Count, Automated 356 10 Normal 150-450 Nucleated Red Blood Cell % 0.0 % Normal 0-0 Comprehensive Metabolic Panel 02/26/2021 [facility] Comprehensive Metabo (SEE NOTE) 13, 14 Sodium 138 mEq/L 134 - 153 Potassium [...] >60 mL/min Afr Amer GFR >60 mL/min 15 HCV Fibrosure [facility] Fibrosis Score 0.02 NA 0.00-0.21 Fibrosis Stage COMMENT 16 Necroinflammat ActivityScore 0.03 NA 0.00-0.17 Necroinflammat ActivityGrade A0-No activity Alpha 2-Macroglobulins,Qn 157 mg/dL 110-276 Haptoglobin 228 mg/dL 33-278 Apolipoprotein A-1 105 mg/dL Low 116-209 Bilirubin, Total 0.1 mg/dL 0.0-1.2 GGT 12 IU/L 0-60 Alt (SGPT) P5P 13 IU/L 0-40 Interpretations: COMMENT 17 Fibrosis Scoring: COMMENT 18 Necroinflamm ActivityScoring: COMMENT 19 Limitations: COMMENT 20 Comment: WILL FOLLOW Herpes I&II Igm AB 02/26/2021 [facility] HSV, IgM I/II Combination <0.91 Ratio 0.00-0.90 21 Herpes Simplex Virus I/II Igg 02/26/2021 [facility]spital HSV 1 IgG, Type Spec <0.91 index 0.00-0.90 22 HSV 2 IgG, Type Spec 2.06 index High 0.00-0.90 23 HSV-2 IgG SupplementalTest Positive 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 0-0.9 Laboratory test finding 02/26/2021 [facility] Ferritin Krysta 47.6 ng/mL 3.0 - 105 Iron Binding Capacity 02/26/2021 [facility] Iron 45 g/dL 42 - 135 Uibc 215 g/dL 112 - 347 Tibc 260 g/dL 250 - 450 Iron Sat 17 % Laboratory test finding 02/26/2021 [facility] Vitamin D (25-Hydroxy) 23 NG/ML 25 CBC W/Automated Diff 02/26/2021 [facility] CBC W/Automated Diff (SEE NOTE) 26 WBC 12.6 10^3/uL High 4.2 - 11.0 [...] Lymph 24.8 % Low 25.0 - 40.0 Green 6.6 % 3.0 - 8.0 Eos 1.4 % 0.0 - 7.0 Baso 0.2 % 0.0 - 2.5 %Ig 0.3 % High 0.0 - 0.0 %NRBC 0.0 % 0.0 - 0.0 #Neut 8.36 10^3/uL High 2.00 - 6.90 #Lymph 3.12 10^3/uL 0.60 - 3.40 #Green 0.83 10^3/uL 0.00 - 0.90 #Eos 0.18 10^3/uL 0.00 - 0.70 #Baso 0.03 10^3/uL 0.00 - 0.20 #Ig 0.04 10^3/uL 0.00 - 0.10 #NRBC 0.00 10^3/uL 0.00 - 0.00 Manual Diff NOT INDICATED RBC Morph NOT INDICATED Laboratory test finding 02/26/2021 [facility] l Vitamin B12 Serum 353 pg/mL 232 - 1245 Covid-19 02/22/2021 [facility] Sars-CoV-2, Tracey Not Detected Not Detected 27, 28 Sars-CoV-2, Tracey 2 Day Tat Performed Cuture Urine 02/17/2021 [facility] Culture Urine (SEE NOTE) 29, 30 Ua With Reflex To Ua Culture 02/17/2021 [facility] spital Ua Reflex To Ua Cult (SEE NOTE) 31 Source R Color yellow Normal: Yellow Clarity hazy Normal: Clear Spec [place] 1.020 1.001 - 1.030 pH 6 5 [...] 1+ Normal: None Seen Yeast Few Abnormal 32 Chlamydia GC/Trich 02/17/2021 [facility] Source: Genital 33 Chlamydia by Tracey Negative Negative Gonococcus by Tracey Negative Negative Trich vag by Tracey Negative Negative Bacterial Vaginosis 02/17/2021 [facility] Source: Genital Isabela species Positive Abnormal Negative Gardnerella vaginalis Positive Abnormal Negative Trichomonas vaginalis Negative Negative Chlamydia/GC 02/17/2021 [facility] Chlam Trach QL Dna Probe <pending> GC By Dna Cervical Mucus <pending> Affirm Vaginitis Panel 02/17/2021 [facility] Z#Other Observations <pending> Covid-19 01/24/2021 [facility] Sars-CoV-2, Tracey Not Detected Not Detected 34 Sars-CoV-2, Tracey 2 Day Tat Performed Laboratory test finding 01/06/2021 [facility] Ferritin 73 NG/ML Normal 8-252 35 Total Iron Binding Capacit 01/06/2021 [facility] Iron (Fe) 78 g/dL Normal 50-170 Total Iron Binding Capacity 256 g/dL Normal 250-450 Percent Saturation 30.5 % Normal 13.2-45.0 Comprehensive Metabolic Profil 01/06/2021 [facility] Glucose, Fasting 109 mg/dL High 70-100 Blood Urea Nitrogen 14 mg/dL Normal 7-18 Creatinine For GFR 0.66 mg/dL Normal 0.55-1.30 Glomerular Filtration Rate > 60.0 Normal >60 3 6 Sodium Level 141 mEq/L Normal 136-145 Potassium [...] 1.2 Normal 1.2-2.2 CBC With Differential 01/06/2021 [facility] White Blood Count 9.9 10 Normal 4.0-10.0 [...] 36.0-66.0 Lymph % 27.1 % Normal 24.0-44.0 Green % 6.4 % Normal 2.0-8.0 Eos % 1.5 % Normal 0.0-3.0 Baso % 0.3 % Normal 0.0-1.0 Immature Granulocyte % 0.4 % Normal 0-3.0 Nucleated Red Blood Cell % 0.0 % Normal 0-0 Neutrophils # 6.4 10 Normal 1.5-8.5 Lymph # 2.7 10 Normal 1.5-5.0 Green # 0.6 10 Normal 0.0-0.8 Eos # 0.2 10 Normal 0.0-0.5 Baso # 0.0 10 Normal 0.0-0.2 Covid-19 11/20/2020 [facility] Sars-CoV-2, Tracey Not Detected Not Detected 37 Sars-CoV-2, Tracey 2 Day Tat Performed Laboratory test finding 11/17/2020 [facility] l Ferritin Krysta 63.5 ng/mL 3.0 - 105 38 Iron Binding Capacity 11/17/2020 [facility] Iron 58 g/dL 42 - 135 Uibc 173 g/dL 112 - 347 Tibc 231 g/dL Low 250 - 450 Iron Sat 25 % CBC W/Automated Diff 11/17/2020 [facility] CBC W/Automated Diff (SEE NOTE) 39 WBC 10.1 10^3/uL 4.2 - 11.0 RBC [...] 80.0 Lymph 34.6 % 25.0 - 40.0 Green 7.5 % 3.0 - 8.0 Eos 2.8 % 0.0 - 7.0 Baso 0.4 % 0.0 - 2.5 %Ig 0.4 % High 0.0 - 0.0 %NRBC 0.0 % 0.0 - 0.0 #Neut 5.48 10^3/uL 2.00 - 6.90 #Lymph 3.49 10^3/uL High 0.60 - 3.40 #Green 0.76 10^3/uL 0.00 - 0.90 #Eos 0.28 10^3/uL 0.00 - 0.70 #Baso 0.04 10^3/uL 0.00 - 0.20 #Ig 0.04 10^3/uL 0.00 - 0.10 #NRBC 0.00 10^3/uL 0.00 - 0.00 Manual Diff NOT INDICATED RBC Morph NOT INDICATED Laboratory test finding 11/17/2020 [facility] l Vitamin B12 Serum 204 pg/mL Low 232 - 1245 Vitamin D (25-Hydroxy) 19 NG/ML 40 Comprehensive Metabolic Panel [facility] Comprehensive Metabo (SEE NOTE) 41 Sodium 138 mEq/L 134 - 153 Potassium [...] >60 mL/min Afr Amer GFR >60 mL/min 42 Laboratory test finding 11/09/2020 [facility] T4 - Free 1.27 ng/dL 0.93 - 1.70 TSH Highly Sensitive 0.34 uIU/mL Low 0.47 - 5.01 Inhouse-Influenza A&B Rna Prob 09/25/2020 In Office Influenza Virus A QL PCR negative Negative Influenza Virus B QL PCR negative Negative Laboratory test finding 09/25/2020 [facility] Coronavirus Covid-19 Not Detected Not Detected 43 1 Negative results do not prec lude influenza or RSV virus infection and should not be used as the sole basis for treatment or other patient management decisions. 2 Negative results do not prec lude influenza or RSV virus infection and should not be used as the sole basis for treatment or other patient management decisions. 3 Negative results do not prec lude influenza or RSV virus infection and should not be used as the sole basis for treatment or other patient management decisions. 4 A false negative result may occur if a specimen is improperly collected, transported or handled. False negative results may also occur if inadequate numbers of organisms are present in the specimen. As with any molecular test, mutations within the target regions of Xpert Xpress SARS-CoV-2 could affect primer and/or probe binding resulting in failure to detect the presence of virus. This test cannot rule out diseases caused by other bacterial or viral pathogens. DISCLAIMER: Testing was performed using the [employer] SARS-CoV-2 test. This test was developed and its performance characteristics determined by [employer]. This test has not been FDA cleared [...] section 564(b)(1) of the Act, 21 U.S.C. 360bbb-3(b)(1), unless the authorization is terminated or revoked sooner. 5 note:<nlbl:demographic_chang ed> 6 Units are mL/min/1.73 m2 Chronic Kidney Disease Staging per NKF: Stage I & II GFR >=60 Normal to Mildly Decreased Stage III GFR 30-59 Moderately Decreased Stage IV GFR 15-29 Severely Decreased Stage V GFR <15 Very Little GFR Left ESRD GFR <15 on BUSINESS ANALYTICS SPECIALIST 7 note:<nlbl:demographic_chang ed> 8 note:<nlbl:demographic_chang ed> 9 note:<[facility]bl:[facility]> 10 note:<nlbl:[facility] ed> 11 note:<nlbl:[facility]ographic[facility] ed> 12 ALL PRESUMPTIVE POSITIVE FINDINGS ARE UNCONFIRMED THRESHOLD IN NG/ML AMPHETAMINES/METHAMPHET 1000 BARBITURATES 200 BENZODIAZEPINES 200 CANNABINOIDS (THC) 50 COCAINE METABOLITE 300 METHADONE 300 OPIATES 300 PHENCYCLIDINE 25 RESULTS ARE FOR MEDICAL PURPOSES ONLY. ALL URINE SPECIMENS WILL BE SAVED FOR 3 DAYS. IF CONFIRMATION OF A PRESUMPTIVE POSITIVE SCREEN RESULT IS DESIRED, CALL CHEMISTRY ([phone]) AND REQUEST URINE TO BE SENT TO REFERENCE LAB. FOR A LIST OF CLOSELY RELATED COMPOUNDS PLEASE CALL THE LAB. 13 .~.~<DG1.3.1>D51.9</DG1.3.1><DG1.3.1>D51.9</DG1.3.1><DG1.3.1>E55.9</DG1.3.1><DG1 .3.1 Is patient fasting? N~.~.~<DG1.3.1>D51.9</DG1.3.1><DG1.3.1> D51.9</DG1.3.1><DG1.3.1>E55.9</DG1.3. .~.~<DG1.3.1>D51.9</DG1.3.1><DG1.3.1>D51.9</DG1.3.1><DG1.3.1>E55.9</DG1.3.1><DG1 .3.1 .~.~<DG1.3.1>D51.9& lt;/DG1.3.1><DG1.3.1>D51.9</DG1.3.1><DG1.3.1>E55.9</DG1.3.1><DG1.3.1 .~.~<DG1.3.1>D51.9</DG1.3.1><DG1.3.1>D51.9</DG1.3.1><DG1.3.1>E55.9</DG1.3.1><DG1 .3.1 14 COMPREHENSIVE METABOLIC PANE L 15 Male GFR Interprentation 20-49 yrs >60 mL/min Normal 50-59 yrs >56 mL/min Normal 60-69 yrs >49 mL/min Normal 70-79yrs >42 mL/min Normal 80 and above >35 mL/min Normal Female GFR Interpretation 20-39 yrs >60 mL/min Normal 40-49 yrs >58 mL/min Normal 50-59 yrs >51 mL/min Normal 60-69 yrs >45 mL/min Normal 70-79 yrs >39 mL/min Normal 80 and above >32 mL/min Normal 16 F0 - No fibrosis 17 Quantitative results of 6 bi ochemical tests are analyzed using a computational algorithm to provide a quantitative surrogate marker (0.0-1.0) for liver fibrosis (METAVIR F0-F4) and for necroinflammatory activity (METAVIR A0-A3). 18 <=0.21 = Stage F0 - No fibro [...] F4 >0.74 = Stage F4 - Cirrhosis 19 <0.17 = Grade A0 - No Activi ty 0.17 - 0.29 = Grade A0 - A1 0.29 - 0.36 = Grade A1 - Minimal activit y 0.36 - 0.52 = Grade A1 - A2 0.52 - 0.60 = Grade A2 - Moderate activi ty 0.60 - 0.62 = Grade A2 - A3 >0.62 = Grade A3 - Severe activity 20 The negative predictive valu e of a [...] fibrosis and necroinflammatory activity in the liver. 21 Negative <0.91 Equivocal 0.91 - 1.09 Positive >1.09 22 Negative <0.91 Equivocal 0.91 - 1.09 Positive >1.09 Note: Negative indicates no antibodies detected to HSV-1. Equivocal may suggest early infection. If clinically appropriate, retest at later date. Positive indicates antibodies detected to HSV-1. 23 Negative <0.91 Equivocal 0.91 - 1.09 Positive >1.09 Note: Negative indicates no antibodies detected to HSV-2. Equivocal may suggest early infection. If clinically appropriate, retest at later date. Positive indicates antibodies detected to HSV-2. 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 Positive/Equivocal Negative Unable to confirm the presence of IgG antibodies to HSV-2. Recommend retesting in 2-4 weeks. 25 VITAMIN-D(25HYDROXY) Deficiency: <=20 ng/ml Insufficiency: 21-29 ng/ml Preferred level: => 30 ng/ml 26 COMPLETE BLOOD COUNT 27 .~.~Z11.59 28 This nucleic acid amplificat ion test was developed and its performance characteristics determined by [facility]. Nucleic acid amplification tests include RT-PCR and [...] negative (not detected) result in this assay. 29 .~.~R30.0 30 _CULTURE URINE_ ^$144830 ^^544623 $$040501 ^^980538 $$068138 $$966222 $$199035 $$760382 $$129368 $$681081 $$880428 $$120223 $$543111 $$475579 $$519507 $$073927 $$261788 $$291077 $$430827 $$244096 $$628889 $$613515 $$839595 $$918173 $$012666 $$477125 $$521398 ^^490039 $$767570 $$419364 $$407824 -- Continued on next page -- Patient: OSORIO Lind Order: [id number] Page 2 Culture: CULTURE URINE Status: Final -- Continued on next page -- Patient: OSORIO Lind Order: [id number] Page 2 Culture: CULTURE URINE Status: Prelim -- Continued on next page -- Patient: OSORIO Lind Order: [id number] Page 2 Culture: CULTURE URINE Status: Prelim $$[id number] $$[id number] REPORTED DATE/TIME: 02/24/2021 12:06 Culture: CULTURE URINE [...] coli Flag: A Patient: OSORIO Lind Order: [id number] Page 3 Culture: CULTURE URINE Status: Final [...] S S . . . . . .58620-2 Gentamicin S S . . . . . .267-5 Imipenem S S . . . . . .279-0 Levofloxacin S S . . . . . .51586-0 Meropenem S S . . . . . .6652-2 Nitrofurantoin S S . . . . . .363-2 Piperacillin/Tazobactam S S . . . . . .412-7 Tetracycline S S . . . . . .496-0 Tobramycin S S . . . . . .508-2 Trimethoprim/Sulfa S S . . . . . .516-5 P1 Test performed by: [facility] #: [id number] [address] [id number] [facility] [address] Clinical Dental Technician : Pacheco Castillo MD NPI #: Ordnance Handler : 02/22/[email or web address].SENT REF 02/23/21.1623.XMT.SENT REF 02/24/21.1406.XMT.SENT REF 31 URINALYSIS 32 HYPAE YEAST 33 {SOURCE: Genital 34 This nucleic acid amplificat ion test was developed and its performance characteristics determined by [facility]. Nucleic acid amplification tests include RT-PCR and [...] negative (not detected) result in this assay. 35 note:<nlbl:[facility]_chang ed> 36 Units are mL/min/1.73 m2 Chronic Kidney Disease Staging per NKF: Stage I & II GFR >=60 Normal to Mildly Decreased Stage III GFR 30-59 Moderately Decreased Stage IV GFR 15-29 Severely Decreased Stage V GFR <15 Very Little GFR Left ESRD GFR <15 on BUSINESS ANALYTICS SPECIALIST 37 This nucleic acid amplificat ion test was developed and its performance characteristics determined by [facility]. Nucleic acid amplification tests include RT-PCR and [...] negative (not detected) result in this assay. 38 Is patient fasting? N 39 COMPLETE BLOOD COUNT 40 VITAMIN-D(25HYDROXY) Deficiency: <=20 ng/ml Insufficiency: 21-29 ng/ml Preferred level: => 30 ng/ml 41 COMPREHENSIVE METABOLIC PANE L 42 Male GFR Interprentation 20-49 yrs >60 mL/min Normal 50-59 yrs >56 mL/min Normal 60-69 yrs >49 mL/min Normal 70-79yrs >42 mL/min Normal 80 and above >35 mL/min Normal Female GFR Interpretation 20-39 yrs >60 mL/min Normal 40-49 yrs >58 mL/min Normal 50-59 yrs >51 mL/min Normal 60-69 yrs >45 mL/min Normal 70-79 yrs >39 mL/min Normal 80 and above >32 mL/min Normal 43 This nucleic acid amplificat ion test was developed and its performance characteristics determined by [facility]. Nucleic acid amplification tests include RT-PCR and [...] assay. Procedures Date Code Description Status 02/17/2021 95184 Office/Outpatient Established Lo w MDM 20-29 Min Completed 02/17/2021 57693 Office/Outpatient New Low MDM 30 -44 Minutes Completed 02/17/2021 94898 Admin Patient Focused Health Ris k Assessment Instrument Completed 02/17/2021 37308 Brief Emotional/Beha v Assessment W/ Scoring Doc Per Standard Inst Completed 02/10/2021 72963 Office/Outpatient Established Mo d MDM 30-39 Min Completed 01/29/2021 92477 Office Visit New Level 1 Complet ed 01/24/2021 43416 Office/Outpatient Established Lo w MDM 20-29 Min Completed 01/24/2021 64604 Pulse Oximetry Single Determinat ion Completed 11/17/2020 09566 Office/Outpatient Established Lo w MDM 20-29 Min Completed 11/09/2020 84684 Office/Outpatient Established Mo d MDM 30-39 Min Completed 10/06/2020 92384 Office/Outpatient Established Lo w MDM 20-29 Min Completed 10/03/2020 44277 Office/Outpatient Established Lo w MDM 20-29 Min Completed 09/25/2020 52476 Office/Outpatient Established Lo w MDM 20-29 Min Completed Medical Devices Description No Information Available Encounters Description No Information Available Assessments Date Code Description Provider 03/16/2021 F31.60 Bipolar disorder, current episod e mixed, unspecified Olivia Rowland LM, CASAC 03/16/2021 F12.20 Cannabis dependence, uncomplicat ed Olivia Rowland LM, CASAC 03/10/2021 F31.60 Bipolar disorder, current episod e mixed, unspecified Olivia Rowland LM, CASAC 03/10/2021 F12.20 Cannabis dependence, uncomplicat ed Olivia Rowland [facility], CASAC 02/24/2021 F31.60 Bipolar disorder, current episod e mixed, unspecified Olivia Rowland LM, CASAC 02/24/2021 F12.20 Cannabis dependence, uncomplicat ed Olivia Rowland LM, CASAC 02/17/2021 B37.3 Candidiasis of vulva and [...] Bipolar disorder, current episod e mixed, unspecified MADELINE OttoC 02/10/2021 F12.20 Cannabis dependence, uncomplicat ed Nolan Avalos, MADELINEC 02/10/2021 F10.11 Alcohol abuse, in remission MADELINE LaureanoC 01/29/2021 J06.9 Acute upper respiratory infectio n, unspecified Maxi Hunter, MADELINEC 01/24/2021 A09 Infectious gastroenteritis and c olitis, unspecified [facility] 01/22/2021 F31.60 Bipolar disorder, current episod e mixed, unspecified Olivia Rowland LM, CASAC 01/22/2021 F12.20 Cannabis dependence, uncomplicat ed Olivia Rowland [facility], CASAC 01/22/2021 F10.11 Alcohol abuse, in remission Armand Rowland LM, CASAC 12/23/2020 F31.60 Bipolar disorder, current episod e mixed, unspecified Olivia Rowland LM, CASAC 12/23/2020 F12.20 Cannabis dependence, uncomplicat ed Olivia Rowland LM, CASAC 12/23/2020 F10.11 Alcohol abuse, in remission Armand Rowland LM, CASAC 11/18/2020 F31.60 Bipolar disorder, current episod e mixed, unspecified Olviia Rowland [facility], CASAC 11/18/2020 F12.20 Cannabis dependence, uncomplicat ed Olivia Rowland [facility], CASAC 11/18/2020 F10.11 Alcohol abuse, in remission Armand Rowland LM, CASAC 11/17/2020 G43.009 Migraine without aur a, [...] episod e mixed, unspecified MICHELET Lal, CASAC 10/14/2020 F12.20 Cannabis dependence, uncomplicat ed MICHELET Lal, CASAC 10/14/2020 F10.11 Alcohol abuse, in remission MICHELET Cui, CASAC 10/06/2020 M62.830 Muscle spasm of back Lamine Sullivan, ADHESIVE BANDAGE MACHINE OPERATOR 10/03/2020 G43.009 Migraine without aur a, not intractable, without status migrainosus Eloise Cheema PA-C 09/25/2020 R05 Cough Beck Johnson , ADHESIVE BANDAGE MACHINE OPERATOR 09/16/2020 F31.60 Bipolar disorder, current episod e mixed, unspecified MICHELET Lal, CASAC 09/16/2020 F12.20 Cannabis dependence, uncomplicat ed MICHELET Lal, CASAC 09/16/2020 F10.11 Alcohol abuse, in remission MICHELET Cui, CASAC Plan of Treatment Future Appointment(s):* 04/14/2021 3:00 pm - [facility]LET Lal [facility] * 04/07/2021 3:00 pm - MICHELET Lal [facility] * 03/31/2021 2:00 pm - MICHELET Lal [facility] * 03/25/2021 2:00 pm - MICHELET Lal [facility] at [facility] * 03/31/2021 11:00 am - Juan Storey MD at [facility] * 03/24/2021 5:00 pm - Olivia Rowland LM, [facility] at [facility] * 03/30/2021 1:40 pm - Nolan Avalos PA-C at [facility] * 05/27/2021 1:00 pm - Juan Storey MD at [facility] * 03/23/2021 2:40 pm - Nolan Avalos PA-C at [facility] 01/29/2021 - Maxi Hunter PA-C* J06.9 Acute upper respiratory infection, unspecified Functional Status Description No Information Available Mental Status Description No Information Available Referrals Description No Information Available
[2021-03-17] MEDS ORDERED: NS 1,000 ML IV ONE (19:25)
--- OUTSIDE RECORDS SUMMARY | 2021-03-17 19:25 | CCD | Continuity of Care Document ---
Author Author Kimberley STOREY M.D. Organization Unknown Address [address] [place] [id number] Phone [phone] Care Team Providers Care Supervisor Drying Name Role Phone Juan Storey M.D. AUTM [phone] [facility] [address] [facility] AUTM [facility] AUTM [facility] AUTM Problems Active Problems [...] Yon Cota 05/22/2020 Vitamin D (Ergocalciferol) 1.25mg (86440 Ut) Capsules 1 cap by mouth every [...] CPT Code Status Date Vaccine Lot # [id number] Given 02/24/2020 Influenza (>= 6 Months) P.F. Vaccine [id number] Given 03/27/2018 Influenza (>= 6 Months) P.F. [...] Date Facility Test Result H/L Range Note CBC W/Automated Diff 02/26/2021 [facility] CBC W/Automated Diff (SEE NOTE) 1, 2 WBC 12.6 10^3/uL High 4.2 - 11.0 [...] Lymph 24.8 % Low 25.0 - 40.0 Gooding 6.6 % 3.0 - 8.0 Eos 1.4 % 0.0 - 7.0 Baso 0.2 % 0.0 - 2.5 %Ig 0.3 % High 0.0 - 0.0 %NRBC 0.0 % 0.0 - 0.0 #Neut 8.36 10^3/uL High 2.00 - 6.90 #Lymph 3.12 10^3/uL 0.60 - 3.40 #Gooding 0.83 10^3/uL 0.00 - 0.90 #Eos 0.18 10^3/uL 0.00 - 0.70 #Baso 0.03 10^3/uL 0.00 - 0.20 #Ig 0.04 10^3/uL 0.00 - 0.10 #NRBC 0.00 10^3/uL 0.00 - 0.00 Manual Diff NOT INDICATED RBC Morph NOT INDICATED Laboratory test finding 02/26/2021 [facility] Vitamin D (25-Hydroxy) 23 NG/ML 3 Iron Binding Capacity 02/26/2021 [facility] Iron 45 g/dL 42 - 135 Uibc 215 g/dL 112 - 347 Tibc 260 g/dL 250 - 450 Iron Sat 17 % Laboratory test finding 02/26/2021 [facility] Ferritin Krysta 47.6 ng/mL 3.0 - 105 Comprehensive Metabolic Panel 02/26/2021 [facility] Comprehensive Metabo (SEE NOTE) 4 Sodium 138 mEq/L 134 - 153 Potassium [...] >60 mL/min Afr Amer GFR >60 mL/min 5 Laboratory test finding 02/26/2021 [facility] Syphilis NON-REACTIVE Normal:Non Reactive Hepatitis B Surf Antigen NONREACTIVE Normal:Non React estephanie Hep C Antibody With Reflex Quant PCR <0.1 s/coratio 0. 0-0.9 HIV Panel 02/26/2021 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 HSV, IgM I/II Combination <0.91 Ratio 0.00-0.90 9 Laboratory test finding 02/26/2021 [facility] Vitamin B12 Serum 353 pg/mL 232 - 1245 Covid-19 02/22/2021 [facility] Sars-CoV-2, Tracey Not Detected Not Detected 10, 11 Sars-CoV-2, Tracey 2 Day Tat Performed Bacterial Vaginosis 02/17/2021 [facility] Source: Genital 12 Isabela species Positive Abnormal Negative Gardnerella vaginalis Positive Abnormal Negative Trichomonas vaginalis Negative Negative Cuture Urine 02/17/2021 [facility] Culture Urine (SEE NOTE) 13, 14 Ua With Reflex To Ua Culture 02/17/[address] [facility] Ua Reflex To Ua Cult (SEE NOTE) 15 Source R Color yellow Normal: Yellow Clarity hazy Normal: Clear Spec [place] 1.020 1.001 - 1.030 pH 6 5 [...] 1+ Normal: None Seen Yeast Few Abnormal 16 Chlamydia GC/Trich 02/17/2021 [facility] Source: Genital 17 Chlamydia by Tracey Negative Negative Gonococcus by Tracey Negative Negative Trich vag by Tracey Negative Negative Chlamydia/GC 02/17/2021 [facility] Chlam Trach QL Dna Probe <pending> GC By Dna Cervical Mucus <pending> Affirm Vaginitis Panel 02/17/2021 [facility] Z#Other Observations <pending> Covid-19 01/24/2021 [facility] Sars-CoV-2, Tracey Not Detected Not Detected 18 Sars-CoV-2, Tracey 2 Day Tat Performed Laboratory test finding 01/06/2021 [facility] Ferritin 73 NG/ML Normal 8-252 19 Total Iron Binding Capacit 01/06/2021 [facility] Iron (Fe) 78 g/dL Normal 50-170 Total Iron Binding Capacity 256 g/dL Normal 250-450 Percent Saturation 30.5 % Normal 13.2-45.0 Comprehensive Metabolic Profil 01/06/2021 [facility] Glucose, Fasting 109 mg/dL High 70-100 Blood Urea Nitrogen 14 mg/dL Normal 7-18 Creatinine For GFR 0.66 mg/dL Normal 0.55-1.30 Glomerular Filtration Rate > 60.0 Normal >60 2 0 Sodium Level 141 mEq/L Normal 136-145 Potassium [...] 1.2 Normal 1.2-2.2 CBC With Differential 01/06/2021 [facility] White Blood Count 9.9 10 Normal 4.0-10.0 [...] 36.0-66.0 Lymph % 27.1 % Normal 24.0-44.0 Gooding % 6.4 % Normal 2.0-8.0 Eos % 1.5 % Normal 0.0-3.0 Baso % 0.3 % Normal 0.0-1.0 Immature Granulocyte % 0.4 % Normal 0-3.0 Nucleated Red Blood Cell % 0.0 % Normal 0-0 Neutrophils # 6.4 10 Normal 1.5-8.5 Lymph # 2.7 10 Normal 1.5-5.0 Gooding # 0.6 10 Normal 0.0-0.8 Eos # 0.2 10 Normal 0.0-0.5 Baso # 0.0 10 Normal 0.0-0.2 Covid-19 11/20/2020 [facility] Sars-CoV-2, Tracey Not Detected Not Detected 21 Sars-CoV-2, Tracey 2 Day Tat Performed Laboratory test finding 11/17/2020 [facility] Ferritin Krysta 63.5 ng/mL 3.0 - 105 22 Iron Binding Capacity 11/17/2020 [facility] Iron 58 g/dL 42 - 135 Uibc 173 g/dL 112 - 347 Tibc 231 g/dL Low 250 - 450 Iron Sat 25 % CBC W/Automated Diff 11/17/2020 [facility] CBC W/Automated Diff (SEE NOTE) 23 WBC 10.1 10^3/uL 4.2 - 11.0 RBC [...] 80.0 Lymph 34.6 % 25.0 - 40.0 Gooding 7.5 % 3.0 - 8.0 Eos 2.8 % 0.0 - 7.0 Baso 0.4 % 0.0 - 2.5 %Ig 0.4 % High 0.0 - 0.0 %NRBC 0.0 % 0.0 - 0.0 #Neut 5.48 10^3/uL 2.00 - 6.90 #Lymph 3.49 10^3/uL High 0.60 - 3.40 #Gooding 0.76 10^3/uL 0.00 - 0.90 #Eos 0.28 10^3/uL 0.00 - 0.70 #Baso 0.04 10^3/uL 0.00 - 0.20 #Ig 0.04 10^3/uL 0.00 - 0.10 #NRBC 0.00 10^3/uL 0.00 - 0.00 Manual Diff NOT INDICATED RBC Morph NOT INDICATED Laboratory test finding 11/17/2020 [facility] Vitamin B12 Serum 204 pg/mL Low 232 - 1245 Vitamin D (25-Hydroxy) 19 NG/ML 24 Comprehensive Metabolic Panel [facility] Metabo (SEE NOTE) 25 Sodium 138 mEq/L 134 - 153 Potassium [...] >60 mL/min Afr Amer GFR >60 mL/min 26 Laboratory test finding 11/09/2020 [facility] T4 - Free 1.27 ng/dL 0.93 - 1.70 TSH Highly Sensitive 0.34 uIU/mL Low 0.47 - 5.01 Inhouse-Influenza A&B Rna Prob 09/25/2020 In Office Influenza Virus A QL PCR negative Negative Influenza Virus B QL PCR negative Negative Laboratory test finding 09/25/2020 [facility] Coronavirus Covid-19 Not Detected Not Detected 27 Covid-19 09/03/2020 [facility] Sars-CoV-2, Tracey Not Detected Not Detected 28 Sars-CoV-2, Tracey 2 Day Tat Performed 1 .~.~<DG1.3.1>D51.9</DG1.3.1><DG1.3.1>D51.9</DG1.3.1><DG1.3.1>E55.9</DG1.3.1><DG1 .3.1 Is patient fasting? N~.~.~<DG1.3.1>D51.9</DG1.3.1><DG1.3.1> D51.9</DG1.3.1><DG1.3.1>E55.9</DG1.3. .~.~<DG1.3.1>D51.9</DG1.3.1><DG1.3.1>D51.9</DG1.3.1><DG1.3.1>E55.9</DG1.3.1><DG1 .3.1 .~.~<DG1.3.1>D51.9& lt;/DG1.3.1><DG1.3.1>D51.9</DG1.3.1><DG1.3.1>E55.9</DG1.3.1><DG1.3.1 .~.~<DG1.3.1>D51.9</DG1.3.1><DG1.3.1>D51.9</DG1.3.1><DG1.3.1>E55.9</DG1.3.1><DG1 .3.1 2 COMPLETE BLOOD COUNT 3 VITAMIN-D(25HYDROXY) Deficiency: <=20 ng/ml Insufficiency: 21-29 ng/ml Preferred level: => 30 ng/ml 4 COMPREHENSIVE METABOLIC PANE L 5 Male GFR Interprentation 20-49 yrs >60 mL/min Normal 50-59 yrs >56 mL/min Normal 60-69 yrs >49 mL/min Normal 70-79yrs >42 mL/min Normal 80 and above >35 mL/min Normal Female GFR Interpretation 20-39 yrs >60 mL/min Normal 40-49 yrs >58 mL/min Normal 50-59 yrs >51 mL/min Normal 60-69 yrs >45 mL/min Normal 70-79 yrs >39 mL/min Normal 80 and above >32 mL/min Normal 6 Negative <0.91 Equivocal 0.91 - 1.09 Positive >1.09 Note: Negative indicates no antibodies detected to HSV-1. Equivocal may suggest early infection. If clinically appropriate, retest at later date. Positive indicates antibodies detected to HSV-1. 7 Negative <0.91 Equivocal 0.91 - 1.09 Positive >1.09 Note: Negative indicates no antibodies detected to HSV-2. Equivocal may suggest early infection. If clinically appropriate, retest at later date. Positive indicates antibodies detected to HSV-2. 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 Positive/Equivocal Negative Unable to confirm the presence of IgG antibodies to HSV-2. Recommend retesting in 2-4 weeks. 9 Negative <0.91 Equivocal 0.91 - 1.09 Positive >1.09 10 .~.~Z11.59 11 This nucleic acid amplificat ion test was developed and its performance characteristics determined by [employer]. Nucleic acid amplification tests include RT-PCR and [...] negative (not detected) result in this assay. 12 {SOURCE: Genital 13 .~.~R30.0 14 _CULTURE URINE_ ^$[id number] ^^203944 $$578316 ^^824552 $$145711 $$965775 $$637750 $$038022 $$881651 $$651858 $$916523 $$983074 $$199450 $$941407 $$675385 $$104896 $$851060 $$733329 $$178280 $$706755 $$634379 $$364792 $$063158 $$900179 $$666194 $$924415 $$061944 ^^074185 $$454771 $$564518 $$161552 -- Continued on next page -- Patient: OSORIO Lind Order: [id number] Page 2 Culture: CULTURE URINE Status: Final -- Continued on next page -- Patient: OSORIO Lind Order: [id number] Page 2 Culture: CULTURE URINE Status: Prelim -- Continued on next page -- Patient: OSORIO SADLER L Order: [id number] Page 2 Culture: CULTURE URINE Status: Prelim $$[id number] $$[id number] REPORTED DATE/TIME: 02/24/2021 12:06 Culture: CULTURE URINE [...] coli Flag: A Patient: OSORIO Lind Order: [id number] Page 3 Culture: CULTURE URINE Status: Final [...] S S . . . . . .79265-8 Gentamicin S S . . . . . .267-5 Imipenem S S . . . . . .279-0 Levofloxacin S S . . . . . .10280-3 Meropenem S S . . . . . .6652-2 Nitrofurantoin S S . . . . . .363-2 Piperacillin/Tazobactam S S . . . . . .412-7 Tetracycline S S . . . . . .496-0 Tobramycin S S . . . . . .508-2 Trimethoprim/Sulfa S S . . . . . .516-5 P1 Test performed by: [facility] #: [id number] [address] [place] [phone] [facility] [id number] Store Host : Pacheco Castillo MD NPI #: Publication Manager : 02/22/[email or web address].XMT.SENT REF 02/23/21.1623.XMT.SENT REF 02/24/21.1406.XMT.SENT REF 15 URINALYSIS 16 HYPAE YEAST 17 {SOURCE: Genital 18 This nucleic acid amplificat ion test was developed and its performance characteristics determined by [employer]. Nucleic acid amplification tests include RT-PCR and [...] negative (not detected) result in this assay. 19 note:<nlbl:demographic_chang ed> 20 Units are mL/min/1.73 m2 Chronic Kidney Disease Staging per NKF: Stage I & II GFR >=60 Normal to Mildly Decreased Stage III GFR 30-59 Moderately Decreased Stage IV GFR 15-29 Severely Decreased Stage V GFR <15 Very Little GFR Left ESRD GFR <15 on SERVICE ORDER CLERK 21 This nucleic acid amplificat ion test was developed and its performance characteristics determined by [employer]. Nucleic acid amplification tests include RT-PCR and [...] negative (not detected) result in this assay. 22 Is patient fasting? N 23 COMPLETE BLOOD COUNT 24 VITAMIN-D(25HYDROXY) Deficiency: <=20 ng/ml Insufficiency: 21-29 ng/ml Preferred level: => 30 ng/ml 25 COMPREHENSIVE METABOLIC PANE L 26 Male GFR Interprentation 20-49 yrs >60 mL/min Normal 50-59 yrs >56 mL/min Normal 60-69 yrs >49 mL/min Normal 70-79yrs >42 mL/min Normal 80 and above >35 mL/min Normal Female GFR Interpretation 20-39 yrs >60 mL/min Normal 40-49 yrs >58 mL/min Normal 50-59 yrs >51 mL/min Normal 60-69 yrs >45 mL/min Normal 70-79 yrs >39 mL/min Normal 80 and above >32 mL/min Normal 27 This nucleic acid amplificat ion test was developed and its performance characteristics determined by [employer]. Nucleic acid amplification tests include RT-PCR and [...] negative (not detected) result in this assay. 28 This nucleic acid amplificat ion test was developed and its performance characteristics determined by [employer]. Nucleic acid amplification tests include RT-PCR and [...] assay. Procedures Date Code Description Status 02/17/2021 14448 Office/Outpatient Established Lo w MDM 20-29 Min Completed 02/17/2021 90961 Office/Outpatient New Low MDM 30 -44 Minutes Completed 02/17/2021 33758 Admin Patient Focused Health Ris k Assessment Instrument Completed 02/17/2021 44970 Brief Emotional/Beha v Assessment W/ Scoring Doc Per Standard Inst Completed 02/10/2021 22605 Office/Outpatient Established Mo d MDM 30-39 Min Completed 01/29/2021 79243 Office Visit New Level 1 [facility] ed 01/24/2021 53995 Office/Outpatient Established Lo w MDM 20-29 Min Completed 01/24/2021 05501 Pulse Oximetry Single Determinat ion Completed 11/17/2020 29808 Office/Outpatient Established Lo w MDM 20-29 Min Completed 11/09/2020 39678 Office/Outpatient Established Mo d MDM 30-39 Min Completed 10/06/2020 82900 Office/Outpatient Established Lo w MDM 20-29 Min Completed 10/03/2020 05811 Office/Outpatient Established Lo w MDM 20-29 Min Completed 09/25/2020 20909 Office/Outpatient Established Lo w MDM 20-29 Min Completed 09/12/2020 04727 Office Visit [facility] 1 [facility] ed Medical Devices Description No Information Available Encounters Description No Information Available Assessments Date Code Description Provider 02/24/2021 F31.60 Bipolar disorder, current episod e mixed, unspecified MICHELET Lal, CASAC 02/24/2021 F12.20 Cannabis dependence, uncomplicat ed MICHELET Lal, CASAC 02/17/2021 B37.3 Candidiasis of vulva and vagina Jessica Antoine NP 02/17/2021 Z11.3 Encounter for screen ing for infections with a predominantly sexual mode of transmission Jessica Antoine NP 02/17/2021 G43.009 Migraine without aur a, not intractable, without status migrainosus Juan Storey MD 02/17/2021 E55.9 Vitamin D deficiency, unspecifie d Juan Storey MD 02/17/2021 D51.9 Vitamin B12 deficiency anemia, u nspecified Juan Storey MD 02/10/2021 F31.60 Bipolar disorder, current episod e mixed, unspecified Nolan Avalos PA-C 02/10/2021 F12.20 Cannabis dependence, uncomplicat ed Nolan Avalos PA-C 02/10/2021 F10.11 Alcohol abuse, in remission Trenton Avalos, ISIDRO 01/29/2021 J06.9 Acute upper respiratory infectio n, unspecified Maxi Englishcht, ISIDRO 01/24/2021 A09 Infectious gastroenteritis and c olitis, unspecified Lydia Dobbscorwin, MADELINEC 01/22/2021 F31.60 Bipolar disorder, current episod e mixed, unspecified Olivianikki Rowland [facility], CASAC 01/22/2021 F12.20 Cannabis dependence, uncomplicat ed Olivia Kashif [facility], CASAC 01/22/2021 F10.11 Alcohol abuse, in remission Armand morales Kashif [facility], CASAC 12/23/2020 F31.60 Bipolar disorder, current episod e mixed, unspecified Olivia Kashif [facility], CASAC 12/23/2020 F12.20 Cannabis dependence, uncomplicat ed Olivia Kashfi [facility], CASAC 12/23/2020 F10.11 Alcohol abuse, in remission Armand morales Kashif [facility], CASAC 11/18/2020 F31.60 Bipolar disorder, current episod e mixed, unspecified Olivia Rowland [facility], CASAC 11/18/2020 F12.20 Cannabis dependence, uncomplicat ed Olivia Kashif [facility], CASAC 11/18/2020 F10.11 Alcohol abuse, in remission Armand Rowland [facility], CASAC 11/17/2020 G43.009 Migraine without aur [...] e mixed, unspecified Olivia Rowland LM, CASAC 10/14/2020 F12.20 Cannabis dependence, uncomplicat ed Olivia MIKAYLA Rowland, CASAC 10/14/2020 F10.11 Alcohol abuse, in remission Armand morales MIKAYLA Rowland, CASAC 10/06/2020 M62.830 Muscle spasm of back Lamine Sullivan, MEDICAL RECORD CLERK 10/03/2020 G43.009 Migraine without aur a, not intractable, without status migrainosus Eloise Cheema PA-C 09/25/2020 R05 Cough Beck Johnson , MEDICAL RECORD CLERK 09/16/2020 F31.60 Bipolar disorder, current episod e mixed, unspecified Olivia Rowland LM, CASAC 09/16/2020 F12.20 Cannabis dependence, uncomplicat ed Olivia MIKAYLA Rowland, CASAC 09/16/2020 F10.11 Alcohol abuse, in remission Armand morales MIKAYLA Rowland, CASAC 09/12/2020 G43.009 Migraine without aur a, not intractable, without status migrainosus Javier Cruz PA-C Plan of Treatment Future Appointment(s):* 03/10/2021 2:40 pm - Nolan Avalos PA-C at [facility] * 03/10/2021 3:00 pm - MICHELET Lal CASAC at [facility] * 05/27/2021 1:00 pm - Juan Storey MD at [facility] * 03/11/2021 10:00 am - [facility] * 03/23/2021 2:40 pm - Nolan Avalos PA-C at [facility] * 03/23/2021 2:00 pm - MICHELET Lal, ANUPAMA at [facility] 01/29/2021 - Maxi Hunter PA-C* J06.9 Acute upper respiratory infection, unspecified Functional Status Description No Information Available Mental Status Description No Information Available Referrals Description No Information Available
--- OUTSIDE RECORDS SUMMARY | 2021-03-17 19:25 | CCD | Continuity of Care Document ---
Author Author Kimberley CHUNG Organization Unknown Address [address] [place] [id number] Phone [phone] Care Team Providers Care Broom Man Name Role Phone Juan Storey M.D. AUTM [phone] [facility] [address] [facility] AUTM [phone] [facility] AUTM [facility] AUTM [phone] Problems Active Problems Provider Date Migraine with [...] Yon Cota 05/22/2020 Vitamin D (Ergocalciferol) 1.25mg (93514 Ut) Capsules 1 cap by mouth every [...] CPT Code Status Date Vaccine Lot # [id number] Given 02/24/2020 Influenza (>= 6 Months) P.F. Vaccine [id number] Given 03/27/2018 Influenza (>= 6 Months) P.F. [...] H/L Range Note CBC W/Automated Diff 02/26/2021 [facility] CBC W/Automated Diff (SEE NOTE) 1, [...] Lymph 24.8 % Low 25.0 - 40.0 Cherokee 6.6 % 3.0 - 8.0 Eos 1.4 % 0.0 - 7.0 Baso 0.2 % 0.0 - 2.5 %Ig 0.3 % High 0.0 - 0.0 %NRBC 0.0 % 0.0 - 0.0 #Neut 8.36 10^3/uL High 2.00 - 6.90 #Lymph 3.12 10^3/uL 0.60 - 3.40 #Cherokee 0.83 10^3/uL 0.00 - 0.90 #Eos 0.18 10^3/uL 0.00 - 0.70 #Baso 0.03 10^3/uL 0.00 - 0.20 #Ig 0.04 10^3/uL 0.00 - 0.10 #NRBC 0.00 10^3/uL 0.00 - 0.00 Manual Diff NOT INDICATED RBC Morph NOT INDICATED Laboratory test finding 02/26/2021 [facility] Vitamin B12 Serum 353 pg/mL 232 - 1245 Herpes I&II Igm AB 02/26/2021 [facility] HSV, IgM I/II Combination <0.91 Ratio 0.00-0.90 3 Herpes Simplex Virus I/II Igg 02/26/2021 [facility] HSV 1 IgG, Type Spec <0.91 index 0.00-0.90 4 HSV 2 IgG, Type Spec 2.06 index High 0.00-0.90 5 HSV-2 IgG SupplementalTest Positive 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 0-0.9 Comprehensive Metabolic Panel 02/26/2021 [facility] Comprehensive Metabo (SEE NOTE) 7 Sodium 138 mEq/L 134 - 153 Potassium [...] >60 mL/min Afr Amer GFR >60 mL/min 8 Laboratory test finding 02/26/2021 [facility] Ferritin Krysta 47.6 ng/mL 3.0 - 105 Iron Binding Capacity 02/26/2021 [facility] Iron 45 g/dL 42 - 135 Uibc 215 g/dL 112 - 347 Tibc 260 g/dL 250 - 450 Iron Sat 17 % Laboratory test finding 02/26/2021 [facility] Vitamin D (25-Hydroxy) 23 NG/ML 9 Covid-19 02/22/2021 [facility] Sars-CoV-2, Tracey Not Detected Not Detected 10, 11 Sars-CoV-2, Tracey 2 Day Tat Performed Cuture Urine 02/17/2021 [facility] Culture Urine (SEE NOTE) 12, 13 Ua With Reflex To Ua Culture 02/[facility] Ua Reflex To Ua Cult (SEE NOTE) 14 Source R Color yellow Normal: Yellow Clarity hazy Normal: Clear Spec [place] 1.020 1.001 - 1.030 pH 6 5 [...] 1+ Normal: None Seen Yeast Few Abnormal 15 Chlamydia GC/Trich 02/17/2021 [facility] Source: Genital 16 Chlamydia by Tracey Negative Negative Gonococcus by Tracey Negative Negative Trich vag by Tracey Negative Negative Bacterial Vaginosis 02/17/2021 [facility] Source: Genital Isabela species Positive Abnormal Negative Gardnerella vaginalis Positive Abnormal Negative Trichomonas vaginalis Negative Negative Laboratory test finding 02/17/2021 [facility] Pallidum AB QL Serum <pending> Hepatitis C Fibrosure 02/17/2021 [facility] Hepatitis C AB Ser QN Eia <pending> .STI Panel WWW 02/17/2021 [facility] Pallidum Igg AB W/RFX Ser <pending> Hepatitis C Antibody W/Refelx <pending> Hepatitis B Surface Ag QL Eia <pending> Chlamydia/GC 02/17/2021 [facility] Chlam Trach QL Dna Probe <pending> GC By Dna Cervical Mucus <pending> Affirm Vaginitis Panel 02/17/2021 [facility] Z#Other Observations <pending> Covid-19 01/24/2021 [facility] Sars-CoV-2, Tracey Not Detected Not Detected 17 Sars-CoV-2, Tracey 2 Day Tat Performed Laboratory test finding 01/06/2021 [facility] Ferritin 73 NG/ML Normal 8-252 18 Total Iron Binding Capacit 01/06/2021 [facility] Iron (Fe) 78 g/dL Normal 50-170 Total Iron Binding Capacity 256 g/dL Normal 250-450 Percent Saturation 30.5 % Normal 13.2-45.0 Comprehensive Metabolic Profil 01/06/2021 [facility] Glucose, Fasting 109 mg/dL High 70-100 Blood Urea Nitrogen 14 mg/dL Normal 7-18 Creatinine For GFR 0.66 mg/dL Normal 0.55-1.30 Glomerular Filtration Rate > 60.0 Normal >60 1 9 Sodium Level 141 mEq/L Normal 136-145 Potassium [...] 1.2 Normal 1.2-2.2 CBC With Differential 01/06/2021 [facility] White Blood Count 9.9 10 Normal [...] 36.0-66.0 Lymph % 27.1 % Normal 24.0-44.0 Cherokee % 6.4 % Normal 2.0-8.0 Eos % 1.5 % Normal 0.0-3.0 Baso % 0.3 % Normal 0.0-1.0 Immature Granulocyte % 0.4 % Normal 0-3.0 Nucleated Red Blood Cell % 0.0 % Normal 0-0 Neutrophils # 6.4 10 Normal 1.5-8.5 Lymph # 2.7 10 Normal 1.5-5.0 Cherokee # 0.6 10 Normal 0.0-0.8 Eos # 0.2 10 Normal 0.0-0.5 Baso # 0.0 10 Normal 0.0-0.2 Covid-19 11/20/2020 [facility] Sars-CoV-2, Tracey Not Detected Not Detected 20 Sars-CoV-2, Tracey 2 Day Tat Performed Laboratory test finding 11/17/2020 [facility] Ferritin Krysta 63.5 ng/mL 3.0 - 105 21 Iron Binding Capacity 11/17/2020 [facility] Iron 58 g/dL 42 - 135 Uibc 173 g/dL 112 - 347 Tibc 231 g/dL Low 250 - 450 Iron Sat 25 % CBC W/Automated Diff 11/17/2020 [facility] CBC W/Automated Diff (SEE NOTE) 22 WBC 10.1 10^3/uL 4.2 - 11.0 RBC [...] 80.0 Lymph 34.6 % 25.0 - 40.0 Cherokee 7.5 % 3.0 - 8.0 Eos 2.8 % 0.0 - 7.0 Baso 0.4 % 0.0 - 2.5 %Ig 0.4 % High 0.0 - 0.0 %NRBC 0.0 % 0.0 - 0.0 #Neut 5.48 10^3/uL 2.00 - 6.90 #Lymph 3.49 10^3/uL High 0.60 - 3.40 #Cherokee 0.76 10^3/uL 0.00 - 0.90 #Eos 0.28 10^3/uL 0.00 - 0.70 #Baso 0.04 10^3/uL 0.00 - 0.20 #Ig 0.04 10^3/uL 0.00 - 0.10 #NRBC 0.00 10^3/uL 0.00 - 0.00 Manual Diff NOT INDICATED RBC Morph NOT INDICATED Laboratory test finding 11/17/2020 [facility] Vitamin B12 Serum 204 pg/mL Low 232 - 1245 Vitamin D (25-Hydroxy) 19 NG/ML 23 Comprehensive Metabolic Panel 11/17/2020 [facility] Comprehensive Metabo (SEE NOTE) 24 Sodium 138 mEq/L 134 - 153 Potassium [...] >60 mL/min Afr Amer GFR >60 mL/min 25 Laboratory test finding 11/09/2020 [facility] T4 - Free 1.27 ng/dL 0.93 - 1.70 TSH Highly Sensitive 0.34 uIU/mL Low 0.47 - 5.01 Inhouse-Influenza A&B Rna Prob 09/25/2020 In Office Influenza Virus A QL PCR negative Negative Influenza Virus B QL PCR negative Negative Laboratory test finding 09/25/2020 [facility] Coronavirus Covid-19 Not Detected Not Detected 26 Covid-19 09/03/2020 [facility] Sars-CoV-2, Tracey Not Detected Not Detected 27 Sars-CoV-2, Tracey 2 Day Tat Performed 1 .~.~<DG1.3.1>D51.9</DG1.3.1><DG1.3.1>D51.9</DG1.3.1><DG1.3.1>E55.9</DG1.3.1><DG1 .3.1 Is patient fasting? N~.~.~<DG1.3.1>D51.9</DG1.3.1><DG1.3.1> D51.9</DG1.3.1><DG1.3.1>E55.9</DG1.3. .~.~<DG1.3.1>D51.9</DG1.3.1><DG1.3.1>D51.9</DG1.3.1><DG1.3.1>E55.9</DG1.3.1><DG1 .3.1 .~.~<DG1.3.1>D51.9& lt;/DG1.3.1><DG1.3.1>D51.9</DG1.3.1><DG1.3.1>E55.9</DG1.3.1><DG1.3.1 .~.~<DG1.3.1>D51.9</DG1.3.1><DG1.3.1>D51.9</DG1.3.1><DG1.3.1>E55.9</DG1.3.1><DG1 .3.1 2 COMPLETE BLOOD COUNT 3 Negative <0.91 Equivocal 0.91 - 1.09 Positive >1.09 4 Negative <0.91 Equivocal 0.91 - 1.09 Positive >1.09 Note: Negative indicates no antibodies detected to HSV-1. Equivocal may suggest early infection. If clinically appropriate, retest at later date. Positive indicates antibodies detected to HSV-1. 5 Negative <0.91 Equivocal 0.91 - 1.09 Positive >1.09 Note: Negative indicates no antibodies detected to HSV-2. Equivocal may suggest early infection. If clinically appropriate, retest at later date. Positive indicates antibodies detected to HSV-2. 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 Positive/Equivocal Negative Unable to confirm the presence of IgG antibodies to HSV-2. Recommend retesting in 2-4 weeks. 7 COMPREHENSIVE METABOLIC PANE L 8 Male GFR Interprentation 20-49 yrs >60 mL/min Normal 50-59 yrs >56 mL/min Normal 60-69 yrs >49 mL/min Normal 70-79yrs >42 mL/min Normal 80 and above >35 mL/min Normal Female GFR Interpretation 20-39 yrs >60 mL/min Normal 40-49 yrs >58 mL/min Normal 50-59 yrs >51 mL/min Normal 60-69 yrs >45 mL/min Normal 70-79 yrs >39 mL/min Normal 80 and above >32 mL/min Normal 9 VITAMIN-D(25HYDROXY) Deficiency: <=20 ng/ml Insufficiency: 21-29 ng/ml Preferred level: => 30 ng/ml 10 .~.~Z11.59 11 This nucleic acid amplificat ion test was developed and its performance characteristics determined by [employer]. Nucleic acid amplification tests include RT-PCR and [...] (not detected) result in this assay. 12 .~.~R30.0 13 _CULTURE URINE_ ^$[id number] ^^446119 $$263126 ^^676589 $$844208 $$862894 $$682758 $$107615 $$350653 $$370420 $$063438 $$110161 $$793607 $$607304 $$524865 $$747939 $$405481 $$772925 $$063659 $$097025 $$437437 $$191834 $$112639 $$515500 $$655972 $$022321 $$744922 ^^668770 $$221061 $$815571 $$730831 -- Continued on next page -- Patient: OSORIO Lind Order: [id number] Page 2 Culture: CULTURE URINE Status: Final -- Continued on next page -- Patient: OSORIO Lind Order: [id number] Page 2 Culture: CULTURE URINE Status: Prelim -- Continued on next page -- Patient: OSORIO Lind Order: [id number] Page 2 Culture: CULTURE URINE Status: Prelim $$[id number] $$[id number] REPORTED DATE/TIME: 02/24/2021 12:06 Culture: CULTURE URINE [...] coli Flag: A Patient: OSORIO Lind Order: [id number] Page 3 Culture: CULTURE URINE Status: Final [...] S S . . . . . .14831-5 Gentamicin S S . . . . . .267-5 Imipenem S S . . . . . .279-0 Levofloxacin S S . . . . . .42404-3 Meropenem S S . . . . . .6652-2 Nitrofurantoin S S . . . . . .363-2 Piperacillin/Tazobactam S S . . . . . .412-7 Tetracycline S S . . . . . .496-0 Tobramycin S S . . . . . .508-2 Trimethoprim/Sulfa S S . . . . . .516-5 P1 Test performed by: [facility] #: [id number] [address] [place] [phone] [facility] [id number] Fountain Manager : Pacheco Castillo MD NPI #: Form Builder Helper : 02/22/[email or web address].SENT REF 02/23/21.1623.XMT.SENT REF 02/24/21.1406.XMT.SENT REF 14 URINALYSIS 15 HYPAE YEAST 16 {SOURCE: Genital 17 This nucleic acid amplificat ion test was developed and its performance characteristics determined by [facility]. Nucleic acid amplification tests include RT-PCR and [...] negative (not detected) result in this assay. 18 note:<nlbl:romeo_chang ed> 19 Units are mL/min/1.73 m2 Chronic Kidney Disease Staging per NKF: Stage I & II GFR >=60 Normal to Mildly Decreased Stage III GFR 30-59 Moderately Decreased Stage IV GFR 15-29 Severely Decreased Stage V GFR <15 Very Little GFR Left ESRD GFR <15 on PHARMACY SPECIALIST 20 This nucleic acid amplificat ion test was developed and its performance characteristics determined by [facility]. Nucleic acid amplification tests include RT-PCR and [...] negative (not detected) result in this assay. 21 Is patient fasting? N 22 COMPLETE BLOOD COUNT 23 VITAMIN-D(25HYDROXY) Deficiency: <=20 ng/ml Insufficiency: 21-29 ng/ml Preferred level: => 30 ng/ml 24 COMPREHENSIVE METABOLIC PANE L 25 Male GFR Interprentation 20-49 yrs >60 mL/min Normal 50-59 yrs >56 mL/min Normal 60-69 yrs >49 mL/min Normal 70-79yrs >42 mL/min Normal 80 and above >35 mL/min Normal Female GFR Interpretation 20-39 yrs >60 mL/min Normal 40-49 yrs >58 mL/min Normal 50-59 yrs >51 mL/min Normal 60-69 yrs >45 mL/min Normal 70-79 yrs >39 mL/min Normal 80 and above >32 mL/min Normal 26 This nucleic acid amplificat ion test was developed and its performance characteristics determined by [facility]. Nucleic acid amplification tests include RT-PCR and [...] negative (not detected) result in this assay. 27 This nucleic acid amplificat ion test was developed and its performance characteristics determined by [facility]. Nucleic acid amplification tests include RT-PCR and [...] assay. Procedures Date Code Description Status 02/17/2021 56268 Office/Outpatient Established Lo w MDM 20-29 Min Completed 02/17/2021 05917 Office/Outpatient New Low MDM 30 -44 Minutes Completed 02/17/2021 02927 Admin Patient Focused Health Ris k Assessment Instrument Completed 02/17/2021 43469 Brief Emotional/Beha v Assessment W/ Scoring Doc Per Standard Inst Completed 02/10/2021 64560 Office/Outpatient Established Mo d MDM 30-39 Min Completed 01/29/2021 34137 Office Visit New Level 1 [facility] ed 01/24/2021 50830 Office/Outpatient Established Lo w MDM 20-29 Min Completed 01/24/2021 62334 Pulse Oximetry Single Determinat ion Completed 11/17/2020 45804 Office/Outpatient Established Lo w MDM 20-29 Min Completed 11/09/2020 50703 Office/Outpatient Established Mo d MDM 30-39 Min Completed 10/06/2020 18883 Office/Outpatient Established Lo w MDM 20-29 Min Completed 10/03/2020 78634 Office/Outpatient Established Lo w MDM 20-29 Min Completed 09/25/2020 63674 Office/Outpatient Established Lo w MDM 20-29 Min Completed 09/12/2020 47493 Office Visit New Level 1 [facility] ed Medical Devices Description No Information [...] a, not intractable, without status migrainosus Juan Storye MD 02/17/2021 E55.9 Vitamin D deficiency, unspecifie d Juan Storey MD 02/17/2021 D51.9 Vitamin B12 deficiency anemia, u nspecified Juan Storey MD 02/10/2021 F31.60 Bipolar disorder, current episod e mixed, unspecified Nolan Avalos PA-C 02/10/2021 F12.20 Cannabis dependence, uncomplicat ed Nolan Avalos PA-C 02/10/2021 F10.11 Alcohol abuse, in remission Trenton Avalos PA-C 01/29/2021 J06.9 Acute upper respiratory infectio n, unspecified MADELINE AngelC 01/24/2021 A09 Infectious gastroenteritis and c olitis, unspecified Lydia Vidal, MADELINEC 01/22/2021 F31.60 Bipolar disorder, current episod e mixed, unspecified Olivia Rowland LM, CASAC 01/22/2021 F12.20 Cannabis dependence, uncomplicat ed Olivia Rowland LM, CASAC 01/22/2021 F10.11 Alcohol abuse, in remission Armand Rowland LM, CASAC 12/23/2020 F31.60 Bipolar disorder, current episod e mixed, unspecified Oilvia Rowland [facility], CASAC 12/23/2020 F12.20 Cannabis dependence, uncomplicat ed Olivia Rowland [facility], CASAC 12/23/2020 F10.11 Alcohol abuse, in remission Armand Rowland LM, CASAC 11/18/2020 F31.60 Bipolar disorder, current episod e mixed, unspecified Olivia Rowland LM, CASAC 11/18/2020 F12.20 Cannabis dependence, uncomplicat ed Olivia Rowland [facility], CASAC 11/18/2020 F10.11 Alcohol abuse, in remission MICHELET Cui, CASAC 11/17/2020 G43.009 Migraine without aur a, [...] M62.830 Muscle spasm of back Lamine Sullivan, [employer] ECOLOGY PROFESSOR 10/03/2020 G43.009 Migraine without aur a, not intractable, without status migrainosus Eloise Cheema PA-C 09/25/2020 R05 Cough Star ALizzy Johnson , [employer] ECOLOGY PROFESSOR 09/16/2020 F31.60 Bipolar disorder, current episod e mixed, unspecified MICHELET Lal, CASAC 09/16/2020 F12.20 Cannabis dependence, uncomplicat ed MICHELET Lal, CASAC 09/16/2020 F10.11 Alcohol abuse, in remission MICHELET Cui, CASAC 09/12/2020 G43.009 Migraine without aur a, not intractable, without status migrainosus Javier Cruz PA-C Plan of Treatment Future Appointment(s):* 03/10/2021 2:40 pm - Nolan Avalos PA-C at [facility] * 03/10/2021 3:00 pm - MICHELET Lal, ANUPAMA at [facility] * 05/27/2021 1:00 pm - Juan Storey MD at [facility] * 03/11/2021 10:00 am - Jessica Antoine NP [facility] * 03/23/2021 2:40 pm - Nolan Avalos PA-C at [facility] * 03/23/2021 2:00 pm - Olivia Rowland [facility], ANUPAMA at [facility] 01/29/2021 - Maxi Hunter PA-C* J06.9 Acute upper respiratory infection, unspecified Functional Status Description No Information Available Mental Status Description No Information Available Referrals Description No Information Available
--- OUTSIDE RECORDS SUMMARY | 2021-03-17 19:25 | CCD | Continuity of Care Document ---
Author Author Kimberley CHUNG Organization Unknown Address [address] [place] [id number] Phone [phone] Care Team Providers Care Photographic Laboratory Technician Name Role Phone Juan Storey M.D. AUTM [phone] [facility] [address] [facility] AUTM [facility] AUTM [facility] AUTM [phone] Problems Active Problems Provider Date Migraine with [...] Juan Storey MD Onset: 02/17/2021 Allergic rhinitis Juna Storey MD Onset: 11/17/2020 Migraine without aura, [...] Yon Cota 05/22/2020 Vitamin D (Ergocalciferol) 1.25mg (92153 Ut) Capsules 1 cap by mouth every [...] CPT Code Status Date Vaccine Lot # [id number] Given 02/24/2020 Influenza (>= 6 Months) P.F. Vaccine [id number] Given 03/27/2018 Influenza (>= 6 Months) P.F. [...] H/L Range Note CBC W/Automated Diff 02/26/2021 [facility] CBC W/Automated Diff (SEE NOTE) 1, [...] Lymph 24.8 % Low 25.0 - 40.0 Carter 6.6 % 3.0 - 8.0 Eos 1.4 % 0.0 - 7.0 Baso 0.2 % 0.0 - 2.5 %Ig 0.3 % High 0.0 - 0.0 %NRBC 0.0 % 0.0 - 0.0 #Neut 8.36 10^3/uL High 2.00 - 6.90 #Lymph 3.12 10^3/uL 0.60 - 3.40 #Carter 0.83 10^3/uL 0.00 - 0.90 #Eos 0.18 10^3/uL 0.00 - 0.70 #Baso 0.03 10^3/uL 0.00 - 0.20 #Ig 0.04 10^3/uL 0.00 - 0.10 #NRBC 0.00 10^3/uL 0.00 - 0.00 Manual Diff NOT INDICATED RBC Morph NOT INDICATED Laboratory test finding 02/26/2021 [facility] Vitamin B12 Serum 353 pg/mL 232 - 1245 Herpes I&II Igm AB 02/26/2021 [facility] HSV, IgM I/II Combination <0.91 Ratio 0.00-0.90 3 Herpes Simplex Virus I/II Igg 02/26/2021 [facility] HSV 1 IgG, Type Spec <0.91 index 0.00-0.90 4 HSV 2 IgG, Type Spec 2.06 index High 0.00-0.90 5 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 0-0.9 Comprehensive Metabolic Panel 02/26/2021 [facility] Comprehensive Metabo (SEE NOTE) 7 Sodium [...] >60 mL/min 8 Laboratory test finding 02/26/2021 [facility] Ferritin Krysta 47.6 ng/mL 3.0 - 105 Iron Binding Capacity 02/26/2021 [facility] Iron 45 g/dL 42 - 135 Uibc 215 g/dL 112 - 347 Tibc 260 g/dL 250 - 450 Iron Sat 17 % Laboratory test finding 02/26/2021 [facility] Vitamin D (25-Hydroxy) 23 NG/ML 9 Covid-19 02/22/2021 [facility] Sars-CoV-2, Tracey Not Detected Not Detected 10, 11 Sars-CoV-2, Tracey 2 Day Tat Performed Cuture Urine 02/17/2021 [facility] Culture Urine (SEE NOTE) 12, 13 Ua With Reflex To Ua Culture 02/17/2021 [facility] Ua Reflex To Ua Cult (SEE NOTE) 14 Source R Color yellow Normal: Yellow Clarity hazy Normal: Clear Spec Ramsay 1.020 1.001 - 1.030 pH 6 5 [...] Yeast Few Abnormal 15 Chlamydia GC/Trich 02/17/2021 [facility] Source: Genital 16 Chlamydia by Tracey Negative Negative Gonococcus by Tracey Negative Negative Trich vag by Tracey Negative Negative Bacterial Vaginosis 02/17/2021 [facility] Source: Genital Isabela species Positive Abnormal [...] [facility] Z#Other Observations <pending> Covid-19 01/24/2021 [facility] Sars-CoV-2, Tracey Not Detected Not Detected 17 Sars-CoV-2, Tracey 2 Day Tat Performed Laboratory test finding 01/06/2021 [facility] Ferritin 73 NG/ML Normal 8-252 18 Total Iron Binding Capacit 01/06/2021 [facility] Iron (Fe) 78 g/dL Normal 50-170 Total Iron Binding Capacity 256 g/dL Normal 250-450 Percent Saturation 30.5 % Normal 13.2-45.0 Comprehensive Metabolic Profil 01/06/2021 [facility] Glucose, Fasting 109 mg/dL High [...] 1.2 Normal 1.2-2.2 CBC With Differential 01/06/2021 [facility] White Blood Count 9.9 10 [...] 36.0-66.0 Lymph % 27.1 % Normal 24.0-44.0 Carter % 6.4 % Normal 2.0-8.0 Eos % 1.5 % Normal 0.0-3.0 Baso % 0.3 % Normal 0.0-1.0 Immature Granulocyte % 0.4 % Normal 0-3.0 Nucleated Red Blood Cell % 0.0 % Normal 0-0 Neutrophils # 6.4 10 Normal 1.5-8.5 Lymph # 2.7 10 Normal 1.5-5.0 Carter # 0.6 10 Normal 0.0-0.8 Eos # 0.2 10 Normal 0.0-0.5 Baso # 0.0 10 Normal 0.0-0.2 Covid-19 11/20/2020 [facility] Sars-CoV-2, Tracey Not Detected Not Detected 20 Sars-CoV-2, Tracey 2 Day Tat Performed Laboratory test finding 11/17/2020 [facility] l Ferritin Krysta 63.5 ng/mL 3.0 - 105 21 Iron Binding Capacity 11/17/2020 [facility] Iron 58 g/dL 42 - 135 Uibc 173 g/dL 112 - 347 Tibc 231 g/dL Low 250 - 450 Iron Sat 25 % CBC W/Automated Diff 11/17/2020 [facility] CBC W/Automated Diff (SEE NOTE) 22 [...] 80.0 Lymph 34.6 % 25.0 - 40.0 Carter 7.5 % 3.0 - 8.0 Eos 2.8 % 0.0 - 7.0 Baso 0.4 % 0.0 - 2.5 %Ig 0.4 % High 0.0 - 0.0 %NRBC 0.0 % 0.0 - 0.0 #Neut 5.48 10^3/uL 2.00 - 6.90 #Lymph 3.49 10^3/uL High 0.60 - 3.40 #Carter 0.76 10^3/uL 0.00 - 0.90 #Eos 0.28 10^3/uL 0.00 - 0.70 #Baso 0.04 10^3/uL 0.00 - 0.20 #Ig 0.04 10^3/uL 0.00 - 0.10 #NRBC 0.00 10^3/uL 0.00 - 0.00 Manual Diff NOT INDICATED RBC Morph NOT INDICATED Laboratory test finding 11/17/2020 [facility] Vitamin B12 Serum 204 pg/mL Low 232 - 1245 Vitamin D (25-Hydroxy) 19 NG/ML 23 Comprehensive Metabolic Panel 11/17/2020 [facility] Comprehensive Metabo (SEE NOTE) 24 Sodium [...] >60 mL/min 25 Laboratory test finding 11/09/2020 [facility] T4 - Free 1.27 ng/dL 0.93 - 1.70 TSH Highly Sensitive 0.34 uIU/mL Low 0.47 - 5.01 Inhouse-Influenza A&B Rna Prob 09/25/2020 In Office Influenza Virus A QL PCR negative Negative Influenza Virus B QL PCR negative Negative Laboratory test finding 09/25/2020 [facility] Coronavirus Covid-19 Not Detected Not Detected 26 Covid-19 09/03/2020 [facility] Sars-CoV-2, Tracey Not Detected Not Detected [...] developed and its performance characteristics determined by [employer]. Nucleic acid amplification tests include RT-PCR and [...] this assay. 12 .~.~R30.0 13 _CULTURE URINE_ ^$853911 ^^115427 $$742340 ^^640929 $$147373 $$513355 $$823518 $$853177 $$531315 $$783145 $$661137 $$732433 $$008467 $$887051 $$163238 $$104651 $$018739 $$559519 $$378167 $$253225 $$217797 $$686019 $$480596 $$807674 $$711536 $$664231 $$077213 ^^664991 $$239637 $$138887 $$258153 -- Continued on next page -- Patient: OSORIO Lind Order: [id number] Page 2 Culture: CULTURE URINE Status: Final -- Continued on next page -- Patient: OSORIO Lind Order: [id number] Page 2 Culture: CULTURE URINE Status: Prelim -- Continued on next page -- Patient: OSORIO Lind Order: [id number] Page 2 Culture: CULTURE URINE Status: Prelim $$[id number] $$[id number] REPORTED DATE/TIME: 02/24/2021 12:06 Culture: CULTURE URINE [...] coli Flag: A Patient: OSORIO Lind Order: [id number] Page 3 Culture: CULTURE URINE Status: Final [...] S S . . . . . .24340-1 Gentamicin S S . . . . . .267-5 Imipenem S S . . . . . .279-0 Levofloxacin S S . . . . . .27119-5 Meropenem S S . . . . . .6652-2 Nitrofurantoin S S . . . . . .363-2 Piperacillin/Tazobactam S S . . . . . .412-7 Tetracycline S S . . . . . .496-0 Tobramycin S S . . . . . .508-2 Trimethoprim/Sulfa S S . . . . . .516-5 P1 Test performed by: [facility] #: [id number] [address] [place] [address] [id number] [facility] [phone] Rpg Programmer : Pacheco Castillo MD NPI #: Bottom Turner : 02/22/21.0645.XMT.SENT REF 02/23/21.1623.XMT.SENT REF 02/24/21.1406.XMT.SENT REF 14 URINALYSIS 15 HYPAE YEAST 16 {SOURCE: Genital 17 This nucleic acid amplificat ion test was developed and its performance characteristics determined by [employer]. Nucleic acid amplification tests include RT-PCR and [...] Little GFR Left ESRD GFR <15 on HASHER OPERATOR 20 This nucleic acid amplificat ion test was developed and its performance characteristics determined by [employer]. Nucleic acid amplification tests include RT-PCR and [...] developed and its performance characteristics determined by [employer]. Nucleic acid amplification tests include RT-PCR and [...] developed and its performance characteristics determined by [employer]. Nucleic acid amplification tests include RT-PCR and [...] assay. Procedures Date Code Description Status 02/17/2021 24581 Office/Outpatient Established Lo w MDM 20-29 Min Completed 02/17/2021 86919 Office/Outpatient New Low MDM 30 -44 Minutes Completed 02/17/2021 51059 Admin Patient Focused Health Ris k Assessment Instrument Completed 02/17/2021 25944 Brief Emotional/Beha v Assessment W/ Scoring Doc Per Standard Inst Completed 02/10/2021 99339 Office/Outpatient Established Mo d MDM 30-39 Min Completed 01/29/2021 81982 Office Visit New Level 1 [facility] ed 01/24/2021 96118 Office/Outpatient Established Lo w MDM 20-29 Min Completed 01/24/2021 24191 Pulse Oximetry Single Determinat ion Completed 11/17/2020 76861 Office/Outpatient Established Lo w MDM 20-29 Min Completed 11/09/2020 32977 Office/Outpatient Established Mo d MDM 30-39 Min Completed 10/06/2020 26195 Office/Outpatient Established Lo w MDM 20-29 Min Completed 10/03/2020 59059 Office/Outpatient Established Lo w MDM 20-29 Min Completed 09/25/2020 05936 Office/Outpatient Established Lo w MDM 20-29 Min Completed 09/12/2020 31297 Office Visit New Level 1 [facility] ed Medical Devices Description No Information Available [...] current episod e mixed, unspecified Olivia Rowland [facility] 12/23/2020 F12.20 Cannabis dependence, uncomplicat ed Olivia Rowland [facility] 12/23/2020 F10.11 Alcohol abuse, in remission Armand Rowland LM, [facility] 11/18/2020 F31.60 Bipolar disorder, current episod e mixed, unspecified Olivia Rowland LM, CAS[facility] 11/18/2020 F12.20 Cannabis dependence, uncomplicat ed Olivia Rowland [facility] 11/18/2020 F10.11 Alcohol abuse, in [...] M62.830 Muscle spasm of back Lamine Sullivan, SENIOR CLINICAL RESEARCH ASSOCIATE 10/03/2020 G43.009 Migraine without aur a, not intractable, without status migrainosus Eloise Cheema PA-C 09/25/2020 R05 Cough Star ALizzy Johnson , SENIOR CLINICAL RESEARCH ASSOCIATE 09/16/2020 F31.60 Bipolar disorder, current episod e [...] 1:00 pm - Juan Storey MD at [facility] * 03/11/2021 10:00 am - Jessica Antoine NP at [facility] * 03/23/2021 2:40 pm - Nolan Avalos [facility]-C at [facility] * 03/23/2021 2:00 pm - Olivia Rowland [facility] at [facility] 01/29/2021 - Maxi Hunter PA-C* J06.9 Acute upper respiratory infection, unspecified Functional Status Description No Information Available Mental Status Description No Information Available Referrals Description No Information Available
--- OUTSIDE RECORDS SUMMARY | 2021-03-17 19:25 | CCD | Continuity of Care Document ---
Author Author Kimberley STOREY M.D. Organization Unknown Address [address] [place] [address] Phone [phone] Care Team Providers Care Wood Casket Assembler Name Role Phone Juan Storey M.D. AUTM [phone] [facility] [address] [facility] AUTM [facility] AUTM [facility] AUTM Problems Active Problems [...] SIG Qnty Indications Ordering Provide r Date Cipro 250mg Tablets 1 tab by mouth [...] Yon Cota 05/22/2020 Vitamin D (Ergocalciferol) 1.25mg (58890 Ut) Capsules 1 cap by mouth every [...] CPT Code Status Date Vaccine Lot # 74157 Given 02/24/2020 Influenza (>= 6 Months) P.F. Vaccine [id number] Given 03/27/2018 Influenza (>= 6 Months) P.F. [...] Date Facility Test Result H/L Range Note Covid-19 02/22/2021 [facility] Sars-CoV-2, Tracey Not Detected Not Detected 1, 2 Sars-CoV-2, Tracey 2 Day Tat Performed Affirm Vaginitis Panel 02/17/2021 [facility] Z#Other Observations <pending> Chlamydia/GC 02/17/2021 [facility] Chlam Trach QL Dna Probe <pending> GC By Dna Cervical Mucus <pending> .STI Panel WWW 02/17/2021 [facility] T Pallidum Igg AB W/RFX Ser <pending> Hepatitis C Antibody W/Refelx <pending> Hepatitis B Surface Ag QL Eia <pending> Hepatitis C Fibrosure 02/17/2021 [facility] Hepatitis C AB Ser QN Eia <pending> Laboratory test finding 02/17/2021 [facility] Pallidum AB QL Serum <pending> Bacterial Vaginosis 02/17/2021 [facility] Source: Genital 3 Isabela species Positive Abnormal Negative Gardnerella vaginalis Positive Abnormal Negative Trichomonas vaginalis Negative Negative Chlamydia GC/Trich 02/17/2021 [facility] Source: Genital Chlamydia by Tracey Negative Negative Gonococcus by Tracey Negative Negative Trich vag by Tracey Negative Negative Ua With Reflex To Ua Culture 02/17/2021 [facility] Ua Reflex To Ua Cult (SEE NOTE) 4, 5 Source R Color yellow Normal: Yellow Clarity hazy Normal: Clear Spec [place] 1.020 1.001 - 1.030 pH 6 5 [...] 1+ Normal: None Seen Yeast Few Abnormal 6 Cuture Urine 02/17/2021 [facility] Culture Urine (SEE NOTE) 7 Covid-19 01/24/2021 [facility] Sars-CoV-2, Tracey Not Detected Not Detected 8 Sars-CoV-2, Tracey 2 Day Tat Performed CBC With Differential 01/06/2021 [facility] White Blood Count 9.9 10 Normal [...] 36.0-66.0 Lymph % 27.1 % Normal 24.0-44.0 [place] % 6.4 % Normal 2.0-8.0 Eos % 1.5 % Normal 0.0-3.0 Baso % 0.3 % Normal 0.0-1.0 Immature Granulocyte % 0.4 % Normal 0-3.0 Nucleated Red Blood Cell % 0.0 % Normal 0-0 Neutrophils # 6.4 10 Normal 1.5-8.5 Lymph # 2.7 10 Normal 1.5-5.0 [place] # 0.6 10 Normal 0.0-0.8 Eos # 0.2 10 Normal 0.0-0.5 Baso # 0.0 10 Normal 0.0-0.2 Laboratory test finding 01/06/2021 [facility] Ferritin 73 NG/ML Normal 8-252 9 Total Iron Binding Capacit 01/06/2021 [facility] Iron (Fe) 78 g/dL Normal 50-170 Total Iron Binding Capacity 256 g/dL Normal 250-450 Percent Saturation 30.5 % Normal 13.2-45.0 Comprehensive Metabolic Profil 01/06/2021 [facility] Glucose, Fasting 109 mg/dL High 70-100 Blood Urea Nitrogen 14 mg/dL Normal 7-18 Creatinine For GFR 0.66 mg/dL Normal 0.55-1.30 Glomerular Filtration Rate > 60.0 Normal >60 1 0 Sodium Level 141 mEq/L Normal 136-145 [...] Normal 3.2-5.2 Albumin/Globulin Ratio 1.2 Normal 1.2-2.2 Covid-19 11/20/2020 [facility] Sars-CoV-2, Tracey Not Detected Not Detected 11 Sars-CoV-2, Tracey 2 Day Tat Performed Laboratory test finding 11/17/2020 [facility] l Ferritin Krysta 63.5 ng/mL 3.0 - 105 12 Iron Binding Capacity 11/17/2020 [facility] Iron 58 g/dL 42 - 135 Uibc 173 g/dL 112 - 347 Tibc 231 g/dL Low 250 - 450 Iron Sat 25 % CBC W/Automated Diff 11/17/2020 [facility] CBC W/Automated Diff (SEE NOTE) 13 WBC 10.1 10^3/uL 4.2 - 11.0 RBC [...] 80.0 Lymph 34.6 % 25.0 - 40.0 [place] 7.5 % 3.0 - 8.0 Eos 2.8 % 0.0 - 7.0 Baso 0.4 % 0.0 - 2.5 %Ig 0.4 % High 0.0 - 0.0 %NRBC 0.0 % 0.0 - 0.0 #Neut 5.48 10^3/uL 2.00 - 6.90 #Lymph 3.49 10^3/uL High 0.60 - 3.40 #[place] 0.76 10^3/uL 0.00 - 0.90 #Eos 0.28 10^3/uL 0.00 - 0.70 #Baso 0.04 10^3/uL 0.00 - 0.20 #Ig 0.04 10^3/uL 0.00 - 0.10 #NRBC 0.00 10^3/uL 0.00 - 0.00 Manual Diff NOT INDICATED RBC Morph NOT INDICATED Laboratory test finding 11/17/2020 [facility] Vitamin B12 Serum 204 pg/mL Low 232 - 1245 Vitamin D (25-Hydroxy) 19 NG/ML 14 Comprehensive Metabolic Panel 11/17/2020 [facility] Comprehensive Metabo (SEE NOTE) 15 Sodium 138 mEq/L 134 - 153 Potassium [...] >60 mL/min Afr Amer GFR >60 mL/min 16 Laboratory test finding 11/09/2020 [facility] T4 - Free 1.27 ng/dL 0.93 - 1.70 TSH Highly Sensitive 0.34 uIU/mL Low 0.47 - 5.01 Inhouse-Influenza A&B Rna Prob 09/25/2020 In Office Influenza Virus A QL PCR negative Negative Influenza Virus B QL PCR negative Negative Laboratory test finding 09/25/2020 [facility] Coronavirus Covid-19 Not Detected Not Detected 17 Covid-19 09/03/2020 [facility] Sars-CoV-2, Tracey Not Detected Not Detected 18 Sars-CoV-2, Tracey 2 Day Tat Performed 1 .~.~Z11.59 2 This nucleic acid amplificat ion test was developed and its performance characteristics determined by [employer]. Nucleic acid amplification tests include RT-PCR and [...] negative (not detected) result in this assay. 3 {SOURCE: Genital 4 .~.~R30.0 5 URINALYSIS 6 HYPAE YEAST 7 _CULTURE URINE_ ^$071775 ^^758166 $$835600 ^^698006 $$384008 $$027626 $$983784 $$312156 $$150434 $$887549 $$356429 $$172398 $$309103 $$915415 $$643647 $$940256 $$999447 $$749708 $$296069 $$184174 $$582933 $$626902 $$735734 $$449479 $$288281 $$992248 $$978049 ^^126591 $$858501 $$043663 $$264045 -- Continued on next page -- Patient: OSORIO Lind Order: [id number] Page 2 Culture: CULTURE URINE Status: Final -- Continued on next page -- Patient: OSORIO Lind Order: [id number] Page 2 Culture: CULTURE URINE Status: Prelim -- Continued on next page -- Patient: OSORIO Lind Order: [id number] Page 2 Culture: CULTURE URINE Status: Prelim $$[id number] $$[id number] REPORTED DATE/TIME: 02/24/2021 12:06 Culture: CULTURE URINE [...] coli Flag: A Patient: OSORIO Lind Order: [id number] Page 3 Culture: CULTURE URINE Status: Final [...] S S . . . . . .16670-0 Gentamicin S S . . . . . .267-5 Imipenem S S . . . . . .279-0 Levofloxacin S S . . . . . .43134-9 Meropenem S S . . . . . .6652-2 Nitrofurantoin S S . . . . . .363-2 Piperacillin/Tazobactam S S . . . . . .412-7 Tetracycline S S . . . . . .496-0 Tobramycin S S . . . . . .508-2 Trimethoprim/Sulfa S S . . . . . .516-5 P1 Test performed by: [facility] #: [id number] [address] [place] [address] [phone] [facility] [id number] Silverware Etcher : Pacheco Castillo MD NPI #: Professional Athlete : 02/22/21.0645.XMT.SENT REF 02/23/21.1623.XMT.SENT REF 02/24/21.1406.XMT.SENT REF 8 This nucleic acid amplificat ion test was developed and its performance characteristics determined by [employer]. Nucleic acid amplification tests include RT-PCR and [...] negative (not detected) result in this assay. 9 note:<nlbl:demographic_chang ed> 10 Units are mL/min/1.73 m2 Chronic Kidney Disease Staging per NKF: Stage I & II GFR >=60 Normal to Mildly Decreased Stage III GFR 30-59 Moderately Decreased Stage IV GFR 15-29 Severely Decreased Stage V GFR <15 Very Little GFR Left ESRD GFR <15 on CORRECTIONAL OFFICER CHIEF 11 This nucleic acid amplificat ion test was developed and its performance characteristics determined by [employer]. Nucleic acid amplification tests include RT-PCR and [...] (not detected) result in this assay. 12 Is patient fasting? N 13 COMPLETE BLOOD COUNT 14 VITAMIN-D(25HYDROXY) Deficiency: <=20 ng/ml Insufficiency: 21-29 ng/ml Preferred level: => 30 ng/ml 15 COMPREH[address]IVE METABOLIC PANE L 16 Male GFR Interprentation 20-49 yrs >60 mL/min Normal 50-59 yrs >56 mL/min Normal 60-69 yrs >49 mL/min Normal 70-79yrs >42 mL/min Normal 80 and above >35 mL/min Normal Female GFR Interpretation 20-39 yrs >60 mL/min Normal 40-49 yrs >58 mL/min Normal 50-59 yrs >51 mL/min Normal 60-69 yrs >45 mL/min Normal 70-79 yrs >39 mL/min Normal 80 and above >32 mL/min Normal 17 This nucleic acid amplificat ion test was developed and its performance characteristics determined by [employer]. Nucleic acid amplification tests include RT-PCR and [...] (not detected) result in this assay. 18 This nucleic acid amplificat ion test was developed and its performance characteristics determined by [employer]. Nucleic acid amplification tests include RT-PCR and [...] assay. Procedures Date Code Description Status 02/17/2021 44663 Office/Outpatient Established Lo w MDM 20-29 Min Completed 02/17/2021 81463 Office/Outpatient New Low MDM 30 -44 Minutes Completed 02/17/2021 12327 Admin Patient Focused Health Ris k Assessment Instrument Completed 02/17/2021 07320 Brief Emotional/Beha v Assessment W/ Scoring Doc Per Standard Inst Completed 02/10/2021 51314 Office/Outpatient Established Mo d MDM 30-39 Min Completed 01/29/2021 17255 Office Visit New Level 1 [facility] ed 01/24/2021 36894 Office/Outpatient Established Lo w MDM 20-29 Min Completed 01/24/2021 99043 Pulse Oximetry Single Determinat ion Completed 11/17/2020 96440 Office/Outpatient Established Lo w MDM 20-29 Min Completed 11/09/2020 36842 Office/Outpatient Established Mo d MDM 30-39 Min Completed 10/06/2020 78039 Office/Outpatient Established Lo w MDM 20-29 Min Completed 10/03/2020 44054 Office/Outpatient Established Lo w MDM 20-29 Min Completed 09/25/2020 34825 Office/Outpatient Established Lo w MDM 20-29 Min Completed 09/12/2020 28426 Office Visit New Level 1 [facility] ed Medical Devices Description No Information Available Encounters Description No Information Available Assessments Date Code Description Provider 02/24/2021 F31.60 Bipolar disorder, current episod e mixed, unspecified MICHELET Lal, ANUPAMA 02/24/2021 F12.20 Cannabis dependence, uncomplicat ed MICHELET Lal, ANUPAMA 02/17/2021 B37.3 Candidiasis of vulva and vagina Jessica O'paul, BAYRON 02/17/2021 Z11.3 Encounter for screen ing [...] PA-C 02/10/2021 F10.11 Alcohol abuse, in remission MADELINE LaureanoC 01/29/2021 J06.9 Acute upper respiratory infectio n, unspecified Maxi Hunter, MADELINEC 01/24/2021 A09 Infectious gastroenteritis and c olitis, unspecified Lydia Vidal, SJ-C 01/22/2021 F31.60 Bipolar disorder, current episod e mixed, unspecified MICHELET Lal, CASAC 01/22/2021 F12.20 Cannabis dependence, uncomplicat ed MICHELET Lal, CASAC 01/22/2021 F10.11 Alcohol abuse, in remission MICHELET Cui, CASAC 12/23/2020 F31.60 Bipolar disorder, current episod e mixed, unspecified MICHELET Lal, CASAC 12/23/2020 F12.20 Cannabis dependence, uncomplicat ed MICHELET Lal, CASAC 12/23/2020 F10.11 Alcohol abuse, in remission MICHELET Cui, CASAC 11/18/2020 F31.60 Bipolar disorder, current episod e mixed, unspecified MICHELET Lal, CASAC 11/18/2020 F12.20 Cannabis dependence, uncomplicat ed MICHELET Lal, CASAC 11/18/2020 F10.11 Alcohol abuse, in remission [...] current episod e mixed, unspecified Olivia Rowland [facility] 10/14/2020 F12.20 Cannabis dependence, uncomplicat ed Olivia Rowland [facility] 10/14/2020 F10.11 Alcohol abuse, in remission Armand Rowland [facility] 10/06/2020 M62.830 Muscle spasm of back Lamine Sullivan, WATER SYSTEMS DESIGNER 10/03/2020 G43.009 Migraine without aur a, not intractable, without status migrainosus Eloise Cheema PA-C 09/25/2020 R05 Cough Beck Johnson , WATER SYSTEMS DESIGNER 09/16/2020 F31.60 Bipolar disorder, current episod e mixed, unspecified Olivia Rowland [facility] 09/16/2020 F12.20 Cannabis dependence, uncomplicat ed Olivia Rowland [facility] 09/16/2020 F10.11 Alcohol abuse, in remission Armand Rowland [facility] 09/12/2020 G43.009 Migraine without aur a, not intractable, without status migrainosus Javier Cruz PA-C Plan of Treatment Future Appointment(s):* 03/10/2021 2:40 pm - Nolan Avalos PA-C at [facility] * 03/10/2021 3:00 pm - MICHELET Lal, ANUPAMA at Behavioral Health * 05/27/2021 1:00 pm - Juan Storey MD at [facility] * 03/11/2021 10:00 am - Jessica Antoine NP at [facility] * 03/23/2021 2:40 pm - Nolan Avalos PA-C at [facility] * 03/23/2021 2:00 pm - MICHELET Lal, ANUPAMA at [facility] Health 01/29/2021 - Maxi Hunter PA-C* J06.9 Acute upper respiratory infection, unspecified Functional Status Description No Information Available Mental Status Description No Information Available Referrals Description No Information Available
--- OUTSIDE RECORDS SUMMARY | 2021-03-17 19:25 | CCD | Continuity of Care Document ---
Author Author Kimberley CHUNG Organization Unknown Address [address] [place] [address] Phone [phone] Care Team Providers Care Legal Executive Assistant Name Role Phone Juan Storey M.D. AUTM [phone] [facility] [address] To [facility] AUTM [facility] AUTM [facility] AUTM [phone] Problems Active Problems Provider Date Migraine with [...] Yon Cota 05/22/2020 Vitamin D (Ergocalciferol) 1.25mg (34421 Ut) Capsules 1 cap by mouth every [...] CPT Code Status Date Vaccine Lot # 42756 Given 02/24/2020 Influenza (>= 6 Months) P.F. Vaccine [id number] Given 03/27/2018 Influenza (>= 6 Months) P.F. [...] Lymph 24.8 % Low 25.0 - 40.0 [place] 6.6 % 3.0 - 8.0 Eos 1.4 % 0.0 - 7.0 Baso 0.2 % 0.0 - 2.5 %Ig 0.3 % High 0.0 - 0.0 %NRBC 0.0 % 0.0 - 0.0 #Neut 8.36 10^3/uL High 2.00 - 6.90 #Lymph 3.12 10^3/uL 0.60 - 3.40 #[place] 0.83 10^3/uL 0.00 - 0.90 #Eos 0.18 10^3/uL 0.00 - 0.70 #Baso 0.03 10^3/uL 0.00 - 0.20 #Ig 0.04 10^3/uL 0.00 - 0.10 #NRBC 0.00 10^3/uL 0.00 - 0.00 Manual Diff NOT INDICATED RBC Morph NOT INDICATED Laboratory test finding 02/26/2021 [facility] Vitamin D (25-Hydroxy) 23 NG/ML 3 Iron Binding Capacity 02/26/2021 [facility] Iron 45 g/dL 42 - 135 Uibc 215 g/dL 112 - 347 Tibc 260 g/dL 250 - 450 Iron Sat 17 % Laboratory test finding 02/26/2021 [facility] Ferritin Krysta 47.6 ng/mL 3.0 - 105 Comprehensive Metabolic Panel 02/26/2021 [facility] ospital Comprehensive Metabo (SEE NOTE) 4 Sodium [...] >60 mL/min 5 Laboratory test finding 02/26/2021 [facility] Syphilis NON-REACTIVE Normal:Non Reactive Hepatitis B Surf Antigen NONREACTIVE Normal:Non React estephanie Hep C Antibody With Reflex Quant PCR <0.1 s/coratio 0. 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 Vitamin B12 Serum 353 pg/mL 232 - 1245 Covid-19 02/22/2021 [facility] Sars-CoV-2, Tracey Not Detected Not Detected 10, 11 Sars-CoV-2, Tracey 2 Day Tat Performed Bacterial Vaginosis 02/17/2021 [facility] Source: Genital 12 Isabela species Positive Abnormal Negative Gardnerella vaginalis Positive Abnormal Negative Trichomonas vaginalis Negative Negative Cuture Urine 02/17/2021 [facility] Culture Urine (SEE NOTE) 13, 14 Ua With Reflex To Ua Culture 02/17/2021 [facility] spital Ua Reflex To Ua Cult (SEE NOTE) 15 Source R Color yellow Normal: Yellow Clarity hazy Normal: Clear Spec Joseph 1.020 1.001 - 1.030 pH 6 5 [...] Yeast Few Abnormal 16 Chlamydia GC/Trich 02/17/2021 [facility] Source: Genital 17 Chlamydia by Tracey [...] Day Tat Performed Laboratory test finding 01/06/2021 [facility] Ferritin 73 NG/ML Normal 8-252 19 Total Iron Binding Capacit 01/06/2021 [facility] Iron (Fe) 78 g/dL Normal 50-170 Total Iron Binding Capacity 256 g/dL Normal 250-450 Percent Saturation 30.5 % Normal 13.2-45.0 Comprehensive Metabolic Profil 01/06/2021 [facility] Glucose, Fasting 109 mg/dL High [...] 1.2 Normal 1.2-2.2 CBC With Differential 01/06/2021 [facility] White Blood Count 9.9 10 [...] 36.0-66.0 Lymph % 27.1 % Normal 24.0-44.0 [place] % 6.4 % Normal 2.0-8.0 Eos % 1.5 % Normal 0.0-3.0 Baso % 0.3 % Normal 0.0-1.0 Immature Granulocyte % 0.4 % Normal 0-3.0 Nucleated Red Blood Cell % 0.0 % Normal 0-0 Neutrophils # 6.4 10 Normal 1.5-8.5 Lymph # 2.7 10 Normal 1.5-5.0 [place] # 0.6 10 Normal 0.0-0.8 Eos # 0.2 10 Normal 0.0-0.5 Baso # 0.0 10 Normal 0.0-0.2 Covid-19 11/20/2020 [facility] Sars-CoV-2, Tracey Not Detected Not Detected 21 Sars-CoV-2, Tracey 2 Day Tat Performed Laboratory test finding 11/17/2020 [facility] Ferritin Krysta 63.5 ng/mL 3.0 - 105 22 Iron Binding Capacity 11/17/2020 [facility] Iron 58 g/dL 42 - 135 Uibc 173 g/dL 112 - 347 Tibc 231 g/dL Low 250 - 450 Iron Sat 25 % CBC W/Automated Diff 11/17/2020 [facility] CBC W/Automated Diff (SEE NOTE) 23 [...] 80.0 Lymph 34.6 % 25.0 - 40.0 [place] 7.5 % 3.0 - 8.0 Eos 2.8 % 0.0 - 7.0 Baso 0.4 % 0.0 - 2.5 %Ig 0.4 % High 0.0 - 0.0 %NRBC 0.0 % 0.0 - 0.0 #Neut 5.48 10^3/uL 2.00 - 6.90 #Lymph 3.49 10^3/uL High 0.60 - 3.40 #[place] 0.76 10^3/uL 0.00 - 0.90 #Eos 0.28 10^3/uL 0.00 - 0.70 #Baso 0.04 10^3/uL 0.00 - 0.20 #Ig 0.04 10^3/uL 0.00 - 0.10 #NRBC 0.00 10^3/uL 0.00 - 0.00 Manual Diff NOT INDICATED RBC Morph NOT INDICATED Laboratory test finding 11/17/2020 [facility] Vitamin B12 Serum 204 pg/mL Low 232 - 1245 Vitamin D (25-Hydroxy) 19 NG/ML 24 Comprehensive Metabolic Panel 11/17/2020 [facility] Comprehensive Metabo (SEE NOTE) 25 Sodium 138 [...] >60 mL/min 26 Laboratory test finding 11/09/2020 [facility] T4 - Free 1.27 ng/dL 0.93 - 1.70 TSH Highly Sensitive 0.34 uIU/mL Low 0.47 - 5.01 Inhouse-Influenza A&B Rna Prob 09/25/2020 In Office Influenza Virus A QL PCR negative Negative Influenza Virus B QL PCR negative Negative Laboratory test finding 09/25/2020 [facility] Coronavirus Covid-19 Not Detected Not Detected 27 Covid-19 09/03/2020 [facility] Sars-CoV-2, Tracey [...] developed and its performance characteristics determined by [employer]. Nucleic acid amplification tests include RT-PCR and [...] {SOURCE: Genital 13 .~.~R30.0 14 _CULTURE URINE_ ^$129264 ^^971261 $$886326 ^^030181 $$226158 $$004509 $$594141 $$423964 $$202419 $$752942 $$859252 $$839265 $$148480 $$215824 $$031285 $$626558 $$087887 $$144991 $$064094 $$251517 $$984271 $$890241 $$711787 $$333185 $$928312 $$290232 $$256953 ^^962351 $$236762 $$979838 $$623274 -- Continued on next page -- Patient: OSORIO Lind Order: [id number] Page 2 Culture: CULTURE URINE Status: Final -- Continued on next page -- Patient: OSORIO Lind Order: [id number] Page 2 Culture: CULTURE URINE Status: Prelim -- Continued on next page -- Patient: OSORIO SADLER L Order: [id number] Page 2 Culture: CULTURE URINE Status: Prelim $$[id number] $$[id number] REPORTED DATE/TIME: 02/24/2021 12:06 Culture: CULTURE URINE [...] coli Flag: A Patient: OSORIO Lind Order: [id number] Page 3 Culture: CULTURE URINE Status: Final [...] S S . . . . . .78287-0 Gentamicin S S . . . . . .267-5 Imipenem S S . . . . . .279-0 Levofloxacin S S . . . . . .64328-9 Meropenem S S . . . . . .6652-2 Nitrofurantoin S S . . . . . .363-2 Piperacillin/Tazobactam S S . . . . . .412-7 Tetracycline S S . . . . . .496-0 Tobramycin S S . . . . . .508-2 Trimethoprim/Sulfa S S . . . . . .516-5 P1 Test performed by: [facility] #: [id number] [address] [place] [address] [phone] [facility] [address] Hospice Plan Administrator : Pacheco Castillo MD NPI #: Hammer Operator : 02/22/21.0645.XMT.SENT REF 02/23/21.1623.XMT.SENT REF 02/24/21.1406.XMT.SENT REF 15 URINALYSIS 16 HYPAE YEAST 17 {SOURCE: Genital 18 This nucleic acid amplificat ion test was developed and its performance characteristics determined by [employer]. Nucleic acid amplification tests include RT-PCR and [...] Little GFR Left ESRD GFR <15 on PRODUCT TE[employer] FIBERGLASS 21 This nucleic acid amplificat ion test was developed and its performance characteristics determined by [employer]. Nucleic acid amplification tests include RT-PCR and [...] developed and its performance characteristics determined by [employer]. Nucleic acid amplification tests include RT-PCR and [...] developed and its performance characteristics determined by [employer]. Nucleic acid amplification tests include RT-PCR and [...] assay. Procedures Date Code Description Status 02/17/2021 66470 Office/Outpatient Established Lo w MDM 20-29 Min Completed 02/17/2021 79857 Office/Outpatient New Low MDM 30 -44 Minutes Completed 02/17/2021 45144 Admin Patient Focused Health Ris k Assessment Instrument Completed 02/17/2021 16811 Brief Emotional/Beha v Assessment W/ Scoring Doc Per Standard Inst Completed 02/10/2021 18914 Office/Outpatient Established Mo d MDM 30-39 Min Completed 01/29/2021 41179 Office Visit New Level 1 [facility] ed 01/24/2021 26325 Office/Outpatient Established Lo w MDM 20-29 Min Completed 01/24/2021 89678 Pulse Oximetry Single Determinat ion Completed 11/17/2020 61819 Office/Outpatient Established Lo w MDM 20-29 Min Completed 11/09/2020 85202 Office/Outpatient Established Mo d MDM 30-39 Min Completed 10/06/2020 13891 Office/Outpatient Established Lo w MDM 20-29 Min Completed 10/03/2020 18053 Office/Outpatient Established Lo w MDM 20-29 Min Completed 09/25/2020 86475 Office/Outpatient Established Lo w MDM 20-29 Min Completed 09/12/2020 28578 Office Visit Pending [facility] To [facility] 1 [facility] ed Medical Devices Description No Information [...] current episod e mixed, unspecified Olivianikki Rowland [facility] 01/22/2021 F12.20 Cannabis dependence, uncomplicat ed Olivia Kashif [facility] 01/22/2021 F10.11 Alcohol abuse, in remission Armand morales Kashif [facility] 12/23/2020 F31.60 Bipolar disorder, current episod e mixed, unspecified Olivia Kashif [facility] 12/23/2020 F12.20 Cannabis dependence, uncomplicat ed Olivia Kashif [facility] 12/23/2020 F10.11 Alcohol abuse, in remission Armand morales Kashif [facility] 11/18/2020 F31.60 Bipolar disorder, current episod e mixed, unspecified Olivia Rowland [facility] 11/18/2020 F12.20 Cannabis dependence, uncomplicat ed Olivia Kashif [facility] 11/18/2020 F10.11 Alcohol abuse, in remission Armand Rowland [facility] 11/17/2020 G43.009 Migraine without aur [...] M62.830 Muscle spasm of back Lamine Sullivan, TAP OUT OPERATOR 10/03/2020 G43.009 Migraine without aur a, not intractable, without status migrainosus Eloise Cheema PA-C 09/25/2020 R05 Cough Beck Johnson , TAP OUT OPERATOR 09/16/2020 F31.60 Bipolar disorder, current episod [...] 3:00 pm - MICHELET Lal CASAC at [facility] * 05/27/2021 1:00 pm - Juan Storey MD at [facility] * 03/11/2021 10:00 am - [facility] * 03/23/2021 2:40 pm - Nolan Avalos PA-C at [facility] * 03/23/2021 2:00 pm - MICHELET Lal, ANUPAMA at [facility] 01/29/2021 - Maxi Hunter PA-C* J06.9 Acute upper respiratory infection, unspecified Functional Status Description No Information Available Mental Status Description No Information Available Referrals Description No Information Available
--- OUTSIDE RECORDS SUMMARY | 2021-03-17 19:25 | CCD | Continuity of Care Document ---
Author Author Kimberley CHUNG Organization Unknown Address [address] [place] [address] Phone [phone] Care Team Providers Care Terra Cotta Mason Name Role Phone Juan Storey M.D. AUTM [phone] [facility] [address] To [facility] AUTM [facility] AUTM [phone] [facility] AUTM [phone] Problems Active Problems Provider Date Migraine with [...] Yon Cota 05/22/2020 Vitamin D (Ergocalciferol) 1.25mg (97588 Ut) Capsules 1 cap by mouth every [...] CPT Code Status Date Vaccine Lot # 94611 Given 02/24/2020 Influenza (>= 6 Months) P.F. Vaccine [id number] [id number] Given 03/27/2018 Influenza (>= 6 Months) P.F. [...] H/L Range Note CBC W/Automated Diff 02/26/2021 [facility] CBC W/Automated Diff (SEE NOTE) 1, 2 [...] Lymph 24.8 % Low 25.0 - 40.0 [place] 6.6 % 3.0 - 8.0 Eos 1.4 % 0.0 - 7.0 Baso 0.2 % 0.0 - 2.5 %Ig 0.3 % High 0.0 - 0.0 %NRBC 0.0 % 0.0 - 0.0 #Neut 8.36 10^3/uL High 2.00 - 6.90 #Lymph 3.12 10^3/uL 0.60 - 3.40 #[place] 0.83 10^3/uL 0.00 - 0.90 #Eos 0.18 10^3/uL 0.00 - 0.70 #Baso 0.03 10^3/uL 0.00 - 0.20 #Ig 0.04 10^3/uL 0.00 - 0.10 #NRBC 0.00 10^3/uL 0.00 - 0.00 Manual Diff NOT INDICATED RBC Morph NOT INDICATED Laboratory test finding 02/26/2021 [facility] Vitamin D (25-Hydroxy) 23 NG/ML 3 Iron Binding Capacity 02/26/2021 [facility] Iron 45 g/dL 42 - 135 Uibc 215 g/dL 112 - 347 Tibc 260 g/dL 250 - 450 Iron Sat 17 % Laboratory test finding 02/26/2021 [facility] Ferritin Krysta 47.6 ng/mL 3.0 - 105 Comprehensive Metabolic Panel 02/26/2021 [facility] ospital Comprehensive Metabo (SEE NOTE) 4 [...] >60 mL/min 5 Laboratory test finding 02/26/2021 [facility] Syphilis NON-REACTIVE Normal:Non Reactive Hepatitis B Surf Antigen NONREACTIVE Normal:Non React estephanie Hep C Antibody With Reflex Quant PCR <0.1 s/coratio 0. 0-0.9 HIV Panel 02/26/2021 [facility] HIV Screen 4thGeneration wRfx Non Reactive Non Reacti ve Herpes Simplex Virus I/II Igg 02/26/2021 [facility] HSV 1 IgG, Type Spec <0.91 index 0.00-0.90 6 HSV 2 IgG, Type Spec 2.06 index High 0.00-0.90 7 HSV-2 IgG SupplementalTest Positive Abnormal Negative 8 Herpes I&II Igm AB 02/26/2021 [facility] HSV, IgM I/II Combination <0.91 Ratio 0.00-0.90 9 Laboratory test finding 02/26/2021 [facility] Vitamin B12 Serum 353 pg/mL 232 - 1245 Covid-19 02/22/2021 [facility] Sars-CoV-2, Tracey Not Detected Not Detected 10, 11 Sars-CoV-2, Tracey 2 Day Tat Performed Bacterial Vaginosis 02/17/2021 [facility] Source: Genital 12 Isabela species Positive Abnormal Negative Gardnerella vaginalis Positive Abnormal Negative Trichomonas vaginalis Negative Negative Cuture Urine 02/17/2021 [facility] Culture Urine (SEE NOTE) 13, 14 Ua With Reflex To Ua Culture 02/17/2021 [facility] spital Ua Reflex To Ua Cult (SEE NOTE) 15 Source R Color yellow Normal: Yellow Clarity hazy Normal: Clear Spec [place] 1.020 1.001 - 1.030 pH 6 5 [...] Yeast Few Abnormal 16 Chlamydia GC/Trich 02/17/2021 [facility] Source: Genital 17 Chlamydia by Tracey Negative Negative Gonococcus by Tracey Negative Negative Trich vag by Tracey Negative Negative Chlamydia/GC 02/17/2021 [facility] Chlam Trach QL Dna Probe <pending> GC By Dna Cervical Mucus <pending> Affirm Vaginitis Panel 02/17/2021 [facility] Z#Other Observations <pending> Covid-19 01/24/2021 [facility] Sars-CoV-2, Tracey Not Detected Not Detected 18 Sars-CoV-2, Tracey 2 Day Tat Performed Laboratory test finding 01/06/2021 [facility] Ferritin 73 NG/ML Normal 8-252 19 Total Iron Binding Capacit 01/06/2021 [facility] Iron (Fe) 78 g/dL Normal 50-170 Total Iron Binding Capacity 256 g/dL Normal 250-450 Percent Saturation 30.5 % Normal 13.2-45.0 Comprehensive Metabolic Profil 01/06/2021 [facility] Glucose, Fasting 109 mg/dL High 70-100 [...] 1.2 Normal 1.2-2.2 CBC With Differential 01/06/2021 [facility] White Blood Count 9.9 10 Normal [...] 36.0-66.0 Lymph % 27.1 % Normal 24.0-44.0 [place] % 6.4 % Normal 2.0-8.0 Eos % 1.5 % Normal 0.0-3.0 Baso % 0.3 % Normal 0.0-1.0 Immature Granulocyte % 0.4 % Normal 0-3.0 Nucleated Red Blood Cell % 0.0 % Normal 0-0 Neutrophils # 6.4 10 Normal 1.5-8.5 Lymph # 2.7 10 Normal 1.5-5.0 [place] # 0.6 10 Normal 0.0-0.8 Eos # 0.2 10 Normal 0.0-0.5 Baso # 0.0 10 Normal 0.0-0.2 Covid-19 11/20/2020 [facility] Sars-CoV-2, Tracey Not Detected Not Detected 21 Sars-CoV-2, Tracey 2 Day Tat Performed Laboratory test finding 11/17/2020 [facility] Ferritin Krysta 63.5 ng/mL 3.0 - 105 22 Iron Binding Capacity 11/17/2020 [facility] Iron 58 g/dL 42 - 135 Uibc 173 g/dL 112 - 347 Tibc 231 g/dL Low 250 - 450 Iron Sat 25 % CBC W/Automated Diff 11/17/2020 [facility] CBC W/Automated Diff (SEE NOTE) 23 WBC [...] 80.0 Lymph 34.6 % 25.0 - 40.0 [place] 7.5 % 3.0 - 8.0 Eos 2.8 % 0.0 - 7.0 Baso 0.4 % 0.0 - 2.5 %Ig 0.4 % High 0.0 - 0.0 %NRBC 0.0 % 0.0 - 0.0 #Neut 5.48 10^3/uL 2.00 - 6.90 #Lymph 3.49 10^3/uL High 0.60 - 3.40 #[place] 0.76 10^3/uL 0.00 - 0.90 #Eos 0.28 10^3/uL 0.00 - 0.70 #Baso 0.04 10^3/uL 0.00 - 0.20 #Ig 0.04 10^3/uL 0.00 - 0.10 #NRBC 0.00 10^3/uL 0.00 - 0.00 Manual Diff NOT INDICATED RBC Morph NOT INDICATED Laboratory test finding 11/17/2020 [facility] Vitamin B12 Serum 204 pg/mL Low 232 - 1245 Vitamin D (25-Hydroxy) 19 NG/ML 24 Comprehensive Metabolic Panel 11/17/2020 [facility] Comprehensive Metabo (SEE NOTE) 25 Sodium 138 [...] >60 mL/min 26 Laboratory test finding 11/09/2020 [facility] T4 - Free 1.27 ng/dL 0.93 - 1.70 TSH Highly Sensitive 0.34 uIU/mL Low 0.47 - 5.01 Inhouse-Influenza A&B Rna Prob 09/25/2020 In Office Influenza Virus A QL PCR negative Negative Influenza Virus B QL PCR negative Negative Laboratory test finding 09/25/2020 [facility] Coronavirus Covid-19 Not Detected Not Detected 27 Covid-19 09/03/2020 [facility] Sars-CoV-2, Tracey Not Detected Not Detected 28 [...] developed and its performance characteristics determined by [employer]. Nucleic acid amplification tests include RT-PCR and [...] {SOURCE: Genital 13 .~.~R30.0 14 _CULTURE URINE_ ^$678598 ^^276414 $$721877 ^^628642 $$802867 $$381558 $$253894 $$280053 $$626480 $$302345 $$672319 $$888737 $$132792 $$540117 $$650625 $$729877 $$787064 $$312523 $$940756 $$375486 $$788772 $$071047 $$579148 $$922209 $$839108 $$817553 $$460058 ^^311053 $$520553 $$097390 $$883151 -- Continued on next page -- Patient: OSORIO Lind Order: [id number] Page 2 Culture: CULTURE URINE Status: Final -- Continued on next page -- Patient: OSORIO Lind Order: [id number] Page 2 Culture: CULTURE URINE Status: Prelim -- Continued on next page -- Patient: OSORIO SADLER L Order: [id number] Page 2 Culture: CULTURE URINE Status: Prelim $$[id number] $$[id number] REPORTED DATE/TIME: 02/24/2021 12:06 Culture: CULTURE URINE [...] coli Flag: A Patient: OSORIO Lind Order: [id number] Page 3 Culture: CULTURE URINE Status: Final [...] S S . . . . . .57074-6 Gentamicin S S . . . . . .267-5 Imipenem S S . . . . . .279-0 Levofloxacin S S . . . . . .87201-1 Meropenem S S . . . . . .6652-2 Nitrofurantoin S S . . . . . .363-2 Piperacillin/Tazobactam S S . . . . . .412-7 Tetracycline S S . . . . . .496-0 Tobramycin S S . . . . . .508-2 Trimethoprim/Sulfa S S . . . . . .516-5 P1 Test performed by: [employer] [facility] #: [id number] [address] [place] [phone] [facility] [address] Machine Oiler : Pacheco Castillo MD NPI #: Opening Machine Cleaner : 02/22/21.0645.XMT.SENT REF 02/23/21.1623.XMT.SENT REF 02/24/21.1406.XMT.SENT REF 15 URINALYSIS 16 HYPAE YEAST 17 {SOURCE: Genital 18 This nucleic acid amplificat ion test was developed and its performance characteristics determined by [employer]. Nucleic acid amplification tests include RT-PCR and [...] Little GFR Left ESRD GFR <15 on COPPERSMITH HELPER 21 This nucleic acid amplificat ion test was developed and its performance characteristics determined by [employer]. Nucleic acid amplification tests include RT-PCR and [...] developed and its performance characteristics determined by [employer]. Nucleic acid amplification tests include RT-PCR and [...] developed and its performance characteristics determined by [employer]. Nucleic acid amplification tests include RT-PCR and [...] assay. Procedures Date Code Description Status 02/17/2021 23361 Office/Outpatient Established Lo w MDM 20-29 Min Completed 02/17/2021 11818 Office/Outpatient New Low MDM 30 -44 Minutes Completed 02/17/2021 78437 Admin Patient Focused Health Ris k Assessment Instrument Completed 02/17/2021 38365 Brief Emotional/Beha v Assessment W/ Scoring Doc Per Standard Inst Completed 02/10/2021 68844 Office/Outpatient Established Mo d MDM 30-39 Min Completed 01/29/2021 90430 Office Visit New Level 1 [facility] ed 01/24/2021 23501 Office/Outpatient Established Lo w MDM 20-29 Min Completed 01/24/2021 53739 Pulse Oximetry Single Determinat ion Completed 11/17/2020 27296 Office/Outpatient Established Lo w MDM 20-29 Min Completed 11/09/2020 16997 Office/Outpatient Established Mo d MDM 30-39 Min Completed 10/06/2020 62117 Office/Outpatient Established Lo w MDM 20-29 Min Completed 10/03/2020 52937 Office/Outpatient Established Lo w MDM 20-29 Min Completed 09/25/2020 81189 Office/Outpatient Established Lo w MDM 20-29 Min Completed 09/12/2020 46422 Office Visit [facility] 1 [facility] ed Medical Devices Description No Information [...] current episod e mixed, unspecified Olivianikki Rowland [facility] 01/22/2021 F12.20 Cannabis dependence, uncomplicat ed Olivia Kashif [facility] 01/22/2021 F10.11 Alcohol abuse, in remission Armand morales Kashif [facility] 12/23/2020 F31.60 Bipolar disorder, current episod e mixed, unspecified Olivia Kashif [facility] 12/23/2020 F12.20 Cannabis dependence, uncomplicat ed Olivia Kashif [facility] 12/23/2020 F10.11 Alcohol abuse, in remission Armand morales Kashif [facility] 11/18/2020 F31.60 Bipolar disorder, current episod e mixed, unspecified Olivia Rowland [facility] 11/18/2020 F12.20 Cannabis dependence, uncomplicat ed Olivia Kashif [facility] 11/18/2020 F10.11 Alcohol abuse, in remission Armand Rowland [facility] 11/17/2020 G43.009 Migraine without aur a, [...] M62.830 Muscle spasm of back Lamine Sullivan, DERMATOLOGIST AND DERMATOPATHOLOGIST 10/03/2020 G43.009 Migraine without aur a, not intractable, without status migrainosus Eloise Cheema PA-C 09/25/2020 R05 Cough Beck Johnson , DERMATOLOGIST AND DERMATOPATHOLOGIST 09/16/2020 F31.60 Bipolar disorder, current episod e [...] 3:00 pm - MICHELET Lal CASAC at [facility] * 05/27/2021 1:00 pm - Juan Storey MD at [facility] * 03/11/2021 10:00 am - [facility] * 03/23/2021 2:40 pm - Nolan Avalos PA-C at [facility] * 03/23/2021 2:00 pm - MICHELET Lal, ANUPAMA at [facility] 01/29/2021 - Maxi Hunter PA-C* J06.9 Acute upper respiratory infection, unspecified Functional Status Description No Information Available Mental Status Description No Information Available Referrals Description No Information Available
--- OUTSIDE RECORDS SUMMARY | 2021-03-17 19:26 | CCD | Continuity of Care Document ---
Author Kimberley Munoz [facility] Organization Unknown Address [facility] [address] [place] [address] Phone [phone] Care Team Providers Care Stock Lifter Name Role Phone Juan Storey M.D. AUTM [phone] [facility] AUTM [facility] AUTM [phone] [facility] AUTM Problems Active Problems [...] Yon Cota 05/22/2020 Vitamin D (Ergocalciferol) 1.25mg (54358 Ut) Capsules 1 cap by mouth every [...] CPT Code Status Date Vaccine Lot # [id number] Given 02/24/2020 Influenza (>= 6 Months) P.F. Vaccine [id number] Given 03/27/2018 Influenza (>= 6 Months) P.F. [...] Test Result H/L Range Note Covid-19 02/22/2021 [facility] Sars-CoV-2, Tracey Not Detected Not Detected [...] AB QL Serum <pending> Bacterial Vaginosis 02/17/2021 [facility] Source: Genital 3 Isabela species Positive Abnormal Negative Gardnerella vaginalis Positive Abnormal Negative Trichomonas vaginalis Negative Negative Chlamydia GC/Trich 02/17/2021 [facility] Source: Genital Chlamydia by Tracey Negative Negative Gonococcus by Tracey Negative Negative Trich vag by Tracey Negative Negative Ua With Reflex To Ua Culture 02/17/2021 [facility] spital Ua Reflex To Ua Cult (SEE NOTE) 4, 5 Source R Color yellow Normal: Yellow Clarity hazy Normal: Clear Spec [place] 1.020 1.001 - 1.030 pH 6 5 [...] Yeast Few Abnormal 6 Cuture Urine 02/17/2021 [facility] Culture Urine (SEE NOTE) 7 Covid-19 01/24/2021 [facility] Sars-CoV-2, Tracey Not Detected Not Detected 8 Sars-CoV-2, Tracey 2 Day Tat Performed CBC With Differential 01/06/2021 [facility] White Blood Count 9.9 10 Normal [...] 36.0-66.0 Lymph % 27.1 % Normal 24.0-44.0 Bartholomew % 6.4 % Normal 2.0-8.0 Eos % 1.5 % Normal 0.0-3.0 Baso % 0.3 % Normal 0.0-1.0 Immature Granulocyte % 0.4 % Normal 0-3.0 Nucleated Red Blood Cell % 0.0 % Normal 0-0 Neutrophils # 6.4 10 Normal 1.5-8.5 Lymph # 2.7 10 Normal 1.5-5.0 Bartholomew # 0.6 10 Normal 0.0-0.8 Eos # 0.2 10 Normal 0.0-0.5 Baso # 0.0 10 Normal 0.0-0.2 Laboratory test finding 01/06/2021 [facility] Ferritin 73 NG/ML Normal 8-252 9 Total Iron Binding Capacit 01/06/2021 [facility] Iron (Fe) 78 g/dL Normal 50-170 Total Iron Binding Capacity 256 g/dL Normal 250-450 Percent Saturation 30.5 % Normal 13.2-45.0 Comprehensive Metabolic Profil 01/06/2021 [facility] Glucose, Fasting 109 mg/dL High 70-100 [...] Albumin/Globulin Ratio 1.2 Normal 1.2-2.2 Covid-19 11/20/2020 [facility] Sars-CoV-2, Tracey Not Detected Not Detected 11 Sars-CoV-2, Tracey 2 Day Tat Performed Laboratory test finding 11/17/2020 [facility] l Ferritin Krysta 63.5 ng/mL 3.0 - 105 12 Iron Binding Capacity 11/17/2020 [facility] Iron 58 g/dL 42 - 135 Uibc 173 g/dL 112 - 347 Tibc 231 g/dL Low 250 - 450 Iron Sat 25 % CBC W/Automated Diff 11/17/2020 [facility] CBC W/Automated Diff (SEE NOTE) 13 [...] 80.0 Lymph 34.6 % 25.0 - 40.0 Bartholomew 7.5 % 3.0 - 8.0 Eos 2.8 % 0.0 - 7.0 Baso 0.4 % 0.0 - 2.5 %Ig 0.4 % High 0.0 - 0.0 %NRBC 0.0 % 0.0 - 0.0 #Neut 5.48 10^3/uL 2.00 - 6.90 #Lymph 3.49 10^3/uL High 0.60 - 3.40 #Bartholomew 0.76 10^3/uL 0.00 - 0.90 #Eos 0.28 10^3/uL 0.00 - 0.70 #Baso 0.04 10^3/uL 0.00 - 0.20 #Ig 0.04 10^3/uL 0.00 - 0.10 #NRBC 0.00 10^3/uL 0.00 - 0.00 Manual Diff NOT INDICATED RBC Morph NOT INDICATED Laboratory test finding 11/17/2020 [facility] Vitamin B12 Serum 204 pg/mL Low 232 - 1245 Vitamin D (25-Hydroxy) 19 NG/ML 14 Comprehensive Metabolic Panel 11/17/2020 [facility] Comprehensive Metabo (SEE NOTE) 15 [...] >60 mL/min 16 Laboratory test finding 11/09/2020 [facility] T4 - Free 1.27 ng/dL 0.93 - 1.70 TSH Highly Sensitive 0.34 uIU/mL Low 0.47 - 5.01 Inhouse-Influenza A&B Rna Prob 09/25/2020 In Office Influenza Virus A QL PCR negative Negative Influenza Virus B QL PCR negative Negative Laboratory test finding 09/25/2020 [facility] Coronavirus Covid-19 Not Detected Not Detected 17 Covid-19 09/03/2020 [facility] Sars-CoV-2, Tracey Not Detected Not Detected 18 Sars-CoV-2, Tracey 2 Day Tat Performed 1 .~.~Z11.59 2 This nucleic acid amplificat ion test was developed and its performance characteristics determined by [employer]. Nucleic acid amplification tests include RT-PCR and [...] URINALYSIS 6 HYPAE YEAST 7 _CULTURE URINE_ ^$[id number] ^^[id number] $$810209 ^^[id number] $$153926 $$534181 $$413463 $$121214 $$376895 $$331379 $$277888 $$142756 $$848246 $$081265 $$638973 $$099040 $$676212 $$498081 $$613053 $$502159 $$136768 $$732611 $$139621 $$323803 $$770068 $$337219 $$371131 ^^973136 $$095725 $$822429 $$[id number] -- Continued on next page -- Patient: OSORIO Lind Order: [id number] Page 2 Culture: CULTURE URINE Status: Final -- Continued on next page -- Patient: OSORIO Lind Order: [id number] Page 2 Culture: CULTURE URINE Status: Prelim -- Continued on next page -- Patient: OSORIO Lind Order: [id number] Page 2 Culture: CULTURE URINE Status: Prelim $$[id number] $$[id number] REPORTED DATE/TIME: 02/24/2021 12:06 Culture: CULTURE URINE [...] coli Flag: A Patient: OSORIO Lind Order: [id number] Page 3 Culture: CULTURE URINE Status: Final [...] S S . . . . . .60076-1 Gentamicin S S . . . . . .267-5 Imipenem S S . . . . . .279-0 Levofloxacin S S . . . . . .31684-5 Meropenem S S . . . . . .6652-2 Nitrofurantoin S S . . . . . .363-2 Piperacillin/Tazobactam S S . . . . . .412-7 Tetracycline S S . . . . . .496-0 Tobramycin S S . . . . . .508-2 Trimethoprim/Sulfa S S . . . . . .516-5 P1 Test performed by: [employer] [facility] #: [id number] [address] [place] [address] [id number] [facility] [id number] Hydroelectric Systems Technician : Pacheco Castillo MD NPI #: Photographic Artist : 02/22/[email or web address].XMT.SENT REF 02/23/21.1623.XMT.SENT REF 02/24/21.1406.XMT.SENT REF 8 This nucleic acid amplificat ion test was developed and its performance characteristics determined by [employer]. Nucleic acid amplification tests include RT-PCR and [...] Little GFR Left ESRD GFR <15 on MEN'S FURNISHINGS SALESPERSON 11 This nucleic acid amplificat ion test was developed and its performance characteristics determined by [employer]. Nucleic acid amplification tests include RT-PCR and [...] developed and its performance characteristics determined by [employer]. Nucleic acid amplification tests include RT-PCR and [...] developed and its performance characteristics determined by [employer]. Nucleic acid amplification tests include RT-PCR and [...] assay. Procedures Date Code Description Status 02/17/2021 81975 Office/Outpatient Established Lo w MDM 20-29 Min Completed 02/17/2021 75447 Office/Outpatient New Low MDM 30 -44 Minutes Completed 02/17/2021 22707 Admin Patient Focused Health Ris k Assessment Instrument Completed 02/17/2021 53566 Brief Emotional/Beha v Assessment W/ Scoring Doc Per Standard Inst Completed 02/10/2021 98101 Office/Outpatient Established Mo d MDM 30-39 Min Completed 01/29/2021 45552 Office Visit New Level 1 [facility] 01/24/2021 09791 Office/Outpatient Established Lo w MDM 20-29 Min Completed 01/24/2021 93992 Pulse Oximetry Single Determinat ion Completed 11/17/2020 15180 Office/Outpatient Established Lo w MDM 20-29 Min Completed 11/09/2020 60103 Office/Outpatient Established Mo d MDM 30-39 Min Completed 10/06/2020 73360 Office/Outpatient Established Lo w MDM 20-29 Min Completed 10/03/2020 10064 Office/Outpatient Established Lo w MDM 20-29 Min Completed 09/25/2020 04249 Office/Outpatient Established Lo w MDM 20-29 Min Completed 09/12/2020 44714 Office Visit New Level 1 [facility] Medical Devices Description No Information Available Encounters Description No Information Available Assessments Date Code Description Provider 02/17/2021 B37.3 Candidiasis of vulva and vagina Jessica Antoine NP 02/17/2021 Z11.3 Encounter for screen ing for infections with a predominantly sexual mode of transmission Jessica Antoine NP 02/17/2021 G43.009 Migraine without aur a, not intractable, without status migrainosus Juan I. Storey, MD 02/17/2021 E55.9 Vitamin D deficiency, unspecifie d Juan Storey MD 02/17/2021 D51.9 Vitamin B12 deficiency anemia, u nspecified Juan Storey MD 02/10/2021 F31.60 Bipolar disorder, current episod e mixed, unspecified MADELINE OttoC 02/10/2021 F12.20 Cannabis dependence, uncomplicat ed Nolan Avalos, MADELINEC 02/10/2021 F10.11 Alcohol abuse, in remission Trenton Avalos, MADELINEC 01/29/2021 J06.9 Acute upper respiratory infectio n, unspecified Maxi Hunter, MADELINEC 01/24/2021 A09 Infectious gastroenteritis and c olitis, unspecified Lydia Vidal, MADELINEC 01/22/2021 F31.60 Bipolar disorder, current episod e mixed, unspecified Olivia Rowland LM, CASAC 01/22/2021 F12.20 Cannabis dependence, uncomplicat ed Olivia Rowland [facility], [facility] 01/22/2021 F10.11 Alcohol abuse, in remission Armand Rowland LM, CASAC 12/23/2020 F31.60 Bipolar disorder, current episod e mixed, unspecified Olivia Rowland [facility], CAS[facility] 12/23/2020 F12.20 Cannabis dependence, uncomplicat ed Olivia Rowland [facility], CASAC 12/23/2020 F10.11 Alcohol abuse, in remission Armand Rowland LM, CASAC 11/18/2020 F31.60 Bipolar disorder, current episod e mixed, unspecified Olivia Rowland [facility], [facility] 11/18/2020 F12.20 Cannabis dependence, uncomplicat ed Olivia Rowland [facility], [facility] 11/18/2020 F10.11 Alcohol abuse, in [...] M62.830 Muscle spasm of back Lamine Sullivan, MANUFACTURING TEAM LEADER 10/03/2020 G43.009 Migraine without aur a, not intractable, without status migrainosus Eloise Cheema PA-C 09/25/2020 R05 Cough Beck Johnson , MANUFACTURING TEAM LEADER 09/16/2020 F31.60 Bipolar disorder, current episod e mixed, unspecified MICHELET Lal, CASAC 09/16/2020 F12.20 Cannabis dependence, uncomplicat ed MICHELET Lal, CASAC 09/16/2020 F10.11 Alcohol abuse, in remission MICHELET Cui, CASAC 09/12/2020 G43.009 Migraine without aur a, not intractable, without status migrainosus Javier rCuz PA-C 08/26/2020 F31.60 Bipolar disorder, current episod e mixed, unspecified MICHELET Lal, CASAC 08/26/2020 F12.20 Cannabis dependence, uncomplicat ed MICHELET Lal, CASAC 08/26/2020 F10.11 Alcohol abuse, in remission MICHELET Cui, CASAC Plan of Treatment Future Appointment(s):* 03/10/2021 3:00 pm - MICHELET Lal, ANUPAMA at [facility]al Health * 02/25/2021 10:40 am - Nolan Avalos PA-C at Behavior[facility] * 05/27/2021 1:00 pm - Juan Storey MD at [facility] * 03/11/2021 10:00 am - Jessica Antoine NP [facility] * 03/23/2021 2:40 pm - Nolan Avalos PA-C at [facility] * 03/23/2021 2:00 pm - MICHELET Lal, ANUPAMA at Behavioral Health 01/29/2021 - Maxi Hunter PA-C* J06.9 Acute upper respiratory infection, unspecified Functional Status Description No Information Available Mental Status Description No Information Available Referrals Description No Information Available
--- OUTSIDE RECORDS SUMMARY | 2021-03-17 19:26 | CCD | Continuity of Care Document ---
Author Author Kimberley CHUNG Organization Unknown Address [address] [place] [address] Phone [phone] Care Team Providers Care Mechanism Inspector Name Role Phone Juan Storey M.D. AUTM [phone] [facility] [address] [facility] AUTM [phone] [facility] AUTM [facility] AUTM Problems Active [...] SIG Qnty Indications Ordering Provide r Date Emgality 120mg/ml Solution Auto-In ject give one [...] Yon Cota 05/22/2020 Vitamin D (Ergocalciferol) 1.25mg (63150 Ut) Capsules 1 cap by mouth every [...] CPT Code Status Date Vaccine Lot # [id number] Given 02/24/2020 Influenza (>= 6 Months) P.F. Vaccine [id number] Given 03/27/2018 Influenza (>= 6 Months) P.F. [...] Date Facility Test Result H/L Range Note Chlamydia/GC 02/17/2021 [facility] Chlam Trach QL [...] [facility] Pallidum AB QL Serum <pending> Affirm Vaginitis Panel 02/17/2021 [facility] Z#Other Observations <pending> Covid-19 01/24/2021 [facility] Sars-CoV-2, Tracey Not Detected Not Detected 1 Sars-CoV-2, Tracey 2 Day Tat Performed Total Iron Binding Capacit 01/06/2021 [facility] Iron (Fe) 78 g/dL Normal 50-170 Total Iron Binding Capacity 256 g/dL Normal 250-450 Percent Saturation 30.5 % Normal 13.2-45.0 Laboratory test finding 01/06/2021 [facility] Ferritin 73 NG/ML Normal 8-252 2 Comprehensive Metabolic Profil 01/06/2021 [facility] Glucose, Fasting 109 mg/dL High 70-100 Blood Urea Nitrogen 14 mg/dL Normal 7-18 Creatinine For GFR 0.66 mg/dL Normal 0.55-1.30 Glomerular Filtration Rate > 60.0 Normal >60 3 Sodium Level 141 mEq/L Normal 136-145 Potassium [...] 1.2 Normal 1.2-2.2 CBC With Differential 01/06/2021 [facility] White Blood Count 9.9 10 [...] 36.0-66.0 Lymph % 27.1 % Normal 24.0-44.0 Russell % 6.4 % Normal 2.0-8.0 Eos % 1.5 % Normal 0.0-3.0 Baso % 0.3 % Normal 0.0-1.0 Immature Granulocyte % 0.4 % Normal 0-3.0 Nucleated Red Blood Cell % 0.0 % Normal 0-0 Neutrophils # 6.4 10 Normal 1.5-8.5 Lymph # 2.7 10 Normal 1.5-5.0 Russell # 0.6 10 Normal 0.0-0.8 Eos # 0.2 10 Normal 0.0-0.5 Baso # 0.0 10 Normal 0.0-0.2 Covid-19 11/20/2020 [facility] Sars-CoV-2, Tracey Not Detected Not Detected 4 Sars-CoV-2, Tracey 2 Day Tat Performed Laboratory test finding 11/17/2020 [facility] l Ferritin Krysta 63.5 ng/mL 3.0 - 105 5 Iron Binding Capacity 11/17/2020 [facility] Iron 58 g/dL 42 - 135 Uibc 173 g/dL 112 - 347 Tibc 231 g/dL Low 250 - 450 Iron Sat 25 % CBC W/Automated Diff 11/17/2020 [facility] CBC W/Automated Diff (SEE NOTE) 6 WBC 10.1 10^3/uL 4.2 - 11.0 RBC [...] 80.0 Lymph 34.6 % 25.0 - 40.0 Russell 7.5 % 3.0 - 8.0 Eos 2.8 % 0.0 - 7.0 Baso 0.4 % 0.0 - 2.5 %Ig 0.4 % High 0.0 - 0.0 %NRBC 0.0 % 0.0 - 0.0 #Neut 5.48 10^3/uL 2.00 - 6.90 #Lymph 3.49 10^3/uL High 0.60 - 3.40 #Russell 0.76 10^3/uL 0.00 - 0.90 #Eos 0.28 10^3/uL 0.00 - 0.70 #Baso 0.04 10^3/uL 0.00 - 0.20 #Ig 0.04 10^3/uL 0.00 - 0.10 #NRBC 0.00 10^3/uL 0.00 - 0.00 Manual Diff NOT INDICATED RBC Morph NOT INDICATED Laboratory test finding 11/17/2020 [facility] l Vitamin B12 Serum 204 pg/mL Low 232 - 1245 Vitamin D (25-Hydroxy) 19 NG/ML 7 Comprehensive Metabolic Panel 11/17/2020 [facility] Comprehensive Metabo (SEE NOTE) 8 Sodium 138 mEq/L 134 - 153 Potassium [...] >60 mL/min Afr Amer GFR >60 mL/min 9 Laboratory test finding 11/09/2020 [facility] T4 - Free 1.27 ng/dL 0.93 - 1.70 TSH Highly Sensitive 0.34 uIU/mL Low 0.47 - 5.01 Inhouse-Influenza A&B Rna Prob 09/25/2020 In Office Influenza Virus A QL PCR negative Negative Influenza Virus B QL PCR negative Negative Laboratory test finding 09/25/2020 [facility] Coronavirus Covid-19 Not Detected Not Detected 10 Covid-19 09/03/2020 [facility] Sars-CoV-2, Tracey Not Detected Not Detected 11 Sars-CoV-2, Tracey 2 Day Tat Performed 1 This nucleic acid amplificat ion test was developed and its performance characteristics determined by [employer]. Nucleic acid amplification tests include RT-PCR and [...] negative (not detected) result in this assay. 2 note:<nlbl:[facility]_chang ed> 3 Units are mL/min/1.73 m2 Chronic Kidney Disease Staging per NKF: Stage I & II GFR >=60 Normal to Mildly Decreased Stage III GFR 30-59 Moderately Decreased Stage IV GFR 15-29 Severely Decreased Stage V GFR <15 Very Little GFR Left ESRD GFR <15 on APPLICATIONS PROCESSOR 4 This nucleic acid amplificat ion test was developed and its performance characteristics determined by [employer]. Nucleic acid amplification tests include RT-PCR and [...] negative (not detected) result in this assay. 5 Is patient fasting? N 6 COMPLETE BLOOD COUNT 7 VITAMIN-D(25HYDROXY) Deficiency: <=20 ng/ml Insufficiency: 21-29 ng/ml Preferred level: => 30 ng/ml 8 COMPREHENSIVE METABOLIC PANE L 9 Male GFR Interprentation 20-49 yrs >60 mL/min Normal 50-59 yrs >56 mL/min Normal 60-69 yrs >49 mL/min Normal 70-79yrs >42 mL/min Normal 80 and above >35 mL/min Normal Female GFR Interpretation 20-39 yrs >60 mL/min Normal 40-49 yrs >58 mL/min Normal 50-59 yrs >51 mL/min Normal 60-69 yrs >45 mL/min Normal 70-79 yrs >39 mL/min Normal 80 and above >32 mL/min Normal 10 This nucleic acid amplificat ion test was developed and its performance characteristics determined by [employer]. Nucleic acid amplification tests include RT-PCR and [...] negative (not detected) result in this assay. 11 This nucleic acid amplificat ion test was developed and its performance characteristics determined by [employer]. Nucleic acid amplification tests include RT-PCR and [...] assay. Procedures Date Code Description Status 02/17/2021 99160 Office/Outpatient Established Lo w MDM 20-29 Min Completed 02/17/2021 42267 Office/Outpatient New Low MDM 30 -44 Minutes Completed 02/17/2021 38065 Admin Patient Focused Health Ris k Assessment Instrument Completed 02/17/2021 33143 Brief Emotional/Beha v Assessment W/ Scoring Doc Per Standard Inst Completed 02/10/2021 20133 Office/Outpatient Established Mo d MDM 30-39 Min Completed 01/29/2021 86026 Office Visit New Level 1 Complet ed 01/24/2021 55114 Office/Outpatient Established Lo w MDM 20-29 Min Completed 01/24/2021 54910 Pulse Oximetry Single Determinat ion Completed 11/17/2020 25126 Office/Outpatient Established Lo w MDM 20-29 Min Completed 11/09/2020 65704 Office/Outpatient Established Mo d MDM 30-39 Min Completed 10/06/2020 43092 Office/Outpatient Established Lo w MDM 20-29 Min Completed 10/03/2020 56236 Office/Outpatient Established Lo w MDM 20-29 Min Completed 09/25/2020 88756 Office/Outpatient Established Lo w MDM 20-29 Min Completed 09/12/2020 31619 Office Visit New Level 1 Complet ed Medical Devices Description No Information Available Encounters Type Date Location Provider Dx Diagnosis Office Visit 02/17/2021 2:15p [facility] Jessica Antoine NP B37.3 Candidiasis of vulva and vagina Z11.3 Encntr screen for infections w sexl mode of transmiss Office Visit 02/17/2021 1:00p [facility] Juan Storey MD G4 3.009 Migraine w/o aura, not intractable, w/o status migrainosus E55.9 Vitamin D deficiency, unspec ified D51.9 Vitamin B12 deficiency anemi a, unspecified Assessments Date Code Description Provider 02/17/2021 B37.3 [...] Acute upper respiratory infectio n, unspecified Maxi Dale, PA-C 01/24/2021 A09 Infectious gastroenteritis and c olitis, unspecified Lydia Vidal PA-C 01/22/2021 F31.60 Bipolar disorder, current episod e mixed, unspecified Olivia Rowland [facility], [facility] 01/22/2021 F12.20 Cannabis dependence, uncomplicat ed Olivia Rowland [facility], [facility] 01/22/2021 F10.11 Alcohol abuse, in remission Armand Rowland [facility], [facility] 12/23/2020 F31.60 Bipolar disorder, current episod e mixed, unspecified Olivia Rowland [facility], [facility] 12/23/2020 F12.20 Cannabis dependence, uncomplicat ed Olivia Rowland [facility], [facility] 12/23/2020 F10.11 Alcohol abuse, in remission Armand Rowland LM, CASAC 11/18/2020 F31.60 Bipolar disorder, current episod e mixed, unspecified Olivia Rowland [facility], [facility] 11/18/2020 F12.20 Cannabis dependence, uncomplicat ed Olivia Rowland [facility], [facility] 11/18/2020 F10.11 Alcohol abuse, in [...] dependence, uncomplicat ed Olivia Rowland LM, CASAC 10/14/2020 F10.11 Alcohol abuse, in remission Armand morales MIKAYLA Rowland, CASAC 10/06/2020 M62.830 Muscle spasm of back Lamine Sullivan, DEPENDENCY CASE MANAGER 10/03/2020 G43.009 Migraine without aur a, not intractable, without status migrainosus Eloise Cheema PA-C 09/25/2020 R05 Cough Beck Johnson , DEPENDENCY CASE MANAGER 09/16/2020 F31.60 Bipolar disorder, current episod e mixed, unspecified Olivia Rowland LM, CASAC 09/16/2020 F12.20 Cannabis dependence, uncomplicat ed Olivia Rowland LM, CASAC 09/16/2020 F10.11 Alcohol abuse, in remission Armand carmen Rowland LM, CASAC 09/12/2020 G43.009 Migraine without aur a, not intractable, without status migrainosus Javier Cruz PA-C 08/26/2020 F31.60 Bipolar disorder, current episod e mixed, unspecified Olivia Rowland LM, CASAC 08/26/2020 F12.20 Cannabis dependence, uncomplicat ed Olivia Rowland LM, CASAC 08/26/2020 F10.11 Alcohol abuse, in remission Armand Rowland LM, CASAC Plan of Treatment Future Appointment(s):* 03/11/2021 10:00 am - Jessica Antoine [facility] * 03/23/2021 2:40 pm - Nolan Avalos PA-C at [facility] * 03/23/2021 2:00 pm - MICHELET Lal [facility] at [facility] 02/17/2021 - Jessica Antoine NP* B37.3 Candidiasis of vulva and vagina* New Medication:* Fluconazole 150 mg - take 1 by mouth once on days 1, 3 and 7 #3 * Follow up:* [facility] due * Recommendations:* I will treat pending result for yeast as has sx. Discussed with pt unable to give rx for patch as hx migraine with aura. Moniter menses and may use condom in uneasy with BTL * Z11.3 Encounter for screening for infections with a predominantly sexual mode of transmission Functional Status Description No Information Available Mental Status Description No Information Available Referrals Description No Information Available
--- OUTSIDE RECORDS SUMMARY | 2021-03-17 19:26 | CCD | Continuity of Care Document ---
Author Author Kimberley STOREY M.D. Organization Unknown Address [address] [place] [address] Phone [phone] Care Team Providers Care Communications Associate Name Role Phone Juan Storey M.D. AUTM [phone] [facility] [address] [facility] AUTM [facility] AUTM [facility] AUTM Problems Active [...] Yon Cota 05/22/2020 Vitamin D (Ergocalciferol) 1.25mg (71464 Ut) Capsules 1 cap by mouth every [...] CPT Code Status Date Vaccine Lot # [id number] Given 02/24/2020 Influenza (>= 6 Months) P.F. Vaccine [id number] Given 03/27/2018 Influenza (>= 6 Months) P.F. [...] Choice T Pallidum AB QL Serum <pending> Ua With Reflex To [facility] Cult (SEE NOTE) 1, 2 Source R Color yellow Normal: Yellow Clarity hazy Normal: Clear Spec [place] 1.020 1.001 - 1.030 pH 6 5 [...] 1+ Normal: None Seen Yeast Few Abnormal 3 Affirm Vaginitis Panel 02/17/2021 Patients [facility] Z#Other Observations <pending> Covid-19 01/24/2021 [facility] Sars-CoV-2, Tracey Not Detected Not Detected 4 Sars-CoV-2, Tracey 2 Day Tat Performed Total Iron Binding Capacit 01/06/2021 [facility] Iron (Fe) 78 g/dL Normal 50-170 Total Iron Binding Capacity 256 g/dL Normal 250-450 Percent Saturation 30.5 % Normal 13.2-45.0 Laboratory test finding 01/06/2021 [facility] Ferritin 73 NG/ML Normal 8-252 5 Comprehensive Metabolic Profil 01/06/2021 [facility] Glucose, Fasting 109 mg/dL High 70-100 [...] 1.2 Normal 1.2-2.2 CBC With Differential 01/06/2021 [facility] White Blood Count 9.9 10 Normal [...] 36.0-66.0 Lymph % 27.1 % Normal 24.0-44.0 Lynn % 6.4 % Normal 2.0-8.0 Eos % 1.5 % Normal 0.0-3.0 Baso % 0.3 % Normal 0.0-1.0 Immature Granulocyte % 0.4 % Normal 0-3.0 Nucleated Red Blood Cell % 0.0 % Normal 0-0 Neutrophils # 6.4 10 Normal 1.5-8.5 Lymph # 2.7 10 Normal 1.5-5.0 Lynn # 0.6 10 Normal 0.0-0.8 Eos # 0.2 10 Normal 0.0-0.5 Baso # 0.0 10 Normal 0.0-0.2 Covid-19 11/20/2020 [facility] Sars-CoV-2, Tracey Not Detected Not Detected 7 Sars-CoV-2, Tracey 2 Day Tat Performed Laboratory test finding 11/17/2020 [facility] Ferritin Krysta 63.5 ng/mL 3.0 - 105 8 Iron Binding Capacity 11/17/2020 [facility] Iron 58 g/dL 42 - 135 Uibc 173 g/dL 112 - 347 Tibc 231 g/dL Low 250 - 450 Iron Sat 25 % CBC W/Automated Diff 11/17/2020 [facility] CBC W/Automated Diff (SEE NOTE) 9 WBC 10.1 10^3/uL 4.2 - 11.0 RBC [...] 80.0 Lymph 34.6 % 25.0 - 40.0 Lynn 7.5 % 3.0 - 8.0 Eos 2.8 % 0.0 - 7.0 Baso 0.4 % 0.0 - 2.5 %Ig 0.4 % High 0.0 - 0.0 %NRBC 0.0 % 0.0 - 0.0 #Neut 5.48 10^3/uL 2.00 - 6.90 #Lymph 3.49 10^3/uL High 0.60 - 3.40 #Lynn 0.76 10^3/uL 0.00 - 0.90 #Eos 0.28 10^3/uL 0.00 - 0.70 #Baso 0.04 10^3/uL 0.00 - 0.20 #Ig 0.04 10^3/uL 0.00 - 0.10 #NRBC 0.00 10^3/uL 0.00 - 0.00 Manual Diff NOT INDICATED RBC Morph NOT INDICATED Laboratory test finding 11/17/2020 [facility] Vitamin B12 Serum 204 pg/mL Low 232 - 1245 Vitamin D (25-Hydroxy) 19 NG/ML 10 Comprehensive Metabolic Panel 11/17/2020 [facility] ospital Comprehensive Metabo (SEE NOTE) 11 Sodium 138 [...] GFR >60 mL/min 12 Laboratory test finding 11/09/2020 [facility] T4 - Free 1.27 ng/dL 0.93 - 1.70 TSH Highly Sensitive 0.34 uIU/mL Low 0.47 - 5.01 Inhouse-Influenza A&B Rna Prob 09/25/2020 In Office Influenza Virus A QL PCR negative Negative Influenza Virus B QL PCR negative Negative Laboratory test finding 09/25/2020 [facility] Coronavirus Covid-19 Not Detected Not Detected 13 Covid-19 09/03/2020 [facility] Sars-CoV-2, Tracey Not Detected Not Detected 14 Sars-CoV-2, Tracey 2 Day Tat Performed 1 .~.~R30.0 2 URINALYSIS 3 HYPAE YEAST 4 This nucleic acid amplificat ion test was developed and its performance characteristics determined by [employer]. Nucleic acid amplification tests include RT-PCR and [...] (not detected) result in this assay. 5 note:<nlbl:[facility] ed> 6 Units are mL/min/1.73 m2 Chronic Kidney Disease Staging per NKF: Stage I & II GFR >=60 Normal to Mildly Decreased Stage III GFR 30-59 Moderately Decreased Stage IV GFR 15-29 Severely Decreased Stage V GFR <15 Very Little GFR Left ESRD GFR <15 on NAIL WELTER 7 This nucleic acid amplificat ion test was developed and its performance characteristics determined by [employer]. Nucleic acid amplification tests include RT-PCR and [...] negative (not detected) result in this assay. 8 Is patient fasting? N 9 COMPLETE BLOOD COUNT 10 VITAMIN-D(25HYDROXY) Deficiency: <=20 ng/ml Insufficiency: 21-29 ng/ml Preferred level: => 30 ng/ml 11 COMPREHENSIVE METABOLIC PANE L 12 Male [...] 80 and above >32 mL/min Normal 13 This nucleic acid amplificat ion test was developed and its performance characteristics determined by [employer]. Nucleic acid amplification tests include RT-PCR and [...] negative (not detected) result in this assay. 14 This nucleic acid amplificat ion test was developed and its performance characteristics determined by [employer]. Nucleic acid amplification tests include RT-PCR and [...] assay. Procedures Date Code Description Status 02/17/2021 82623 Office/Outpatient Established Lo w MDM 20-29 Min Completed 02/17/2021 54412 Office/Outpatient New Low MDM 30 -44 Minutes Completed 02/17/2021 09149 Admin Patient Focused Health Ris k Assessment Instrument Completed 02/17/2021 83354 Brief Emotional/Beha v Assessment W/ Scoring Doc Per Standard Inst Completed 02/10/2021 40250 Office/Outpatient Established Mo d MDM 30-39 Min Completed 01/29/2021 55652 Office Visit New Level 1 [facility] ed 01/24/2021 48587 Office/Outpatient Established Lo w MDM 20-29 Min Completed 01/24/2021 77843 Pulse Oximetry Single Determinat ion Completed 11/17/2020 97914 Office/Outpatient Established Lo w MDM 20-29 Min Completed 11/09/2020 17009 Office/Outpatient Established Mo d MDM 30-39 Min Completed 10/06/2020 16847 Office/Outpatient Established Lo w MDM 20-29 Min Completed 10/03/2020 53314 Office/Outpatient Established Lo w MDM 20-29 Min Completed 09/25/2020 83822 Office/Outpatient Established Lo w MDM 20-29 Min Completed 09/12/2020 59346 Office Visit [facility] ed Medical Devices Description No [...] a predominantly sexual mode of transmission Jessica Gold'paul, RESAW TAILER 02/17/2021 G43.009 Migraine without aur a, not [...] dependence, uncomplicat ed Olivia Rowland LM, CASAC 11/18/2020 F10.11 Alcohol abuse, in remission [...] abuse, in remission Armand Rowland LM, CASAC 10/06/2020 M62.830 Muscle spasm of back Lamine Mcginnis beatriz, RESAW TAILER 10/03/2020 G43.009 Migraine without aur a, not intractable, without status migrainosus Eloise Cheema, MADELINEC 09/25/2020 R05 Cough Beck Johnson , RESAW TAILER 09/16/2020 F31.60 Bipolar disorder, current episod e mixed, unspecified Olivia Rowland LM, CASAC 09/16/2020 F12.20 Cannabis dependence, uncomplicat ed Olivia Rowland [facility], CASAC 09/16/2020 F10.11 Alcohol abuse, in remission MICHELET Cui, CASAC 09/12/2020 G43.009 Migraine without aur a, not intractable, without status migrainosus MADELINE TayC 08/26/2020 F31.60 Bipolar disorder, current episod e mixed, unspecified Olivia Rowland LM, CASAC 08/26/2020 F12.20 Cannabis dependence, uncomplicat ed MICHELET Lal, ANUPAMA 08/26/2020 F10.11 Alcohol abuse, in remission MICHELET Cui, ANUPAMA Plan of Treatment Future Appointment(s):* 05/27/2021 1:00 pm - Juan Storey MD at [facility] * 03/11/2021 10:00 am - Jessica Antoine NP [facility] * 03/23/2021 2:40 pm - Nolan Avalos PA-C at [facility] * 03/23/2021 2:00 pm - MICHELET Lal, ANUPAMA at [facility] 02/17/2021 - Juan Storey MD* G43.009 Migraine without aura, not intractable, without status migrainosus* New Medication:* Emgality 120 mg/ml - give one dose sc monthly. * New Labs:* Comprehensive Metabolic Panel, Ordered: 02/17/21 * Comments:* She has about five headaches a month. Prescribed Emgality 120 mg/mL one dose subcutaneously once a month. * E55.9 Vitamin D deficiency, unspecified* New Labs:* Vitamin D (25-Hydroxy), Ordered: 02/17/21 * Comments:* She is on Vitamin D 1.25 mg twice monthly. Continue to monitor with periodic blood work. * D51.9 Vitamin B12 deficiency anemia, unspecified* New Labs:* Vitamin B12 Serum, Ordered: 02/17/21 * CBC W/Automated Diff, Ordered: 02/17/21 * Iron Binding Capacity, Ordered: 02/17/21 * Iron, Ordered: 02/17/21 * Ferritin Krysta, Ordered: 02/17/21 * Comments:* She is on vitamin B12 1000 mcg one tablet daily. Continue to monitor with periodic blood work. Functional Status Description No Information Available Mental Status Description No Information Available Referrals Description No Information Available
--- OUTSIDE RECORDS SUMMARY | 2021-03-17 19:26 | CCD | Continuity of Care Document ---
Author Author Kimberley STOREY M.D. Organization Unknown Address [address] [place] [address] Phone [phone] Care Team Providers Care Digital Data Analyst Name Role Phone Juan Storey M.D. AUTM [phone] [facility] [address] [facility] AUTM [facility] AUTM [phone] [facility] AUTM Problems Active [...] 1 by mouth every day 90tabs Juan Sotrey MD 01/04/2021 Rizatriptan Benzoate 10mg Tablets Dispers dissolve 1 tablet in mouth once daily as needed max of 6 headaches per week (may repeat once after two hrs) 18tabs Juan Storey MD 10/15/2020 Vraylar 1.5mg Capsules take one capsule by mouth daily for thoughts 30caps F31.60 Kanu Alexandra MD 1 07/24/2019 F60.9 F06.33 Ibuprofen 800mg Tablets Yon Cota 05/22/2020 Vitamin D (Ergocalciferol) 1.25mg (83778 Ut) Capsules 1 cap by mouth every [...] CPT Code Status Date Vaccine Lot # [id number] Given 02/24/2020 Influenza (>= 6 Months) P.F. Vaccine [id number] Given 03/27/2018 Influenza (>= 6 Months) P.F. [...] Patients Choice Z#Other Observations <pending> Covid-19 01/24/2021 [facility] Sars-CoV-2, Tracey Not Detected Not Detected 1 Sars-CoV-2, Tracey 2 Day Tat Performed Total Iron Binding Capacit 01/06/2021 [facility] Iron (Fe) 78 g/dL Normal 50-170 Total Iron Binding Capacity 256 g/dL Normal 250-450 Percent Saturation 30.5 % Normal 13.2-45.0 Laboratory test finding 01/06/2021 [facility] Ferritin 73 NG/ML Normal 8-252 2 Comprehensive Metabolic Profil 01/06/2021 [facility] Glucose, Fasting 109 mg/dL High 70-100 [...] Normal 1.2-2.2 CBC With Differential 01/06/2021 [facility] White Blood Count 9.9 10 Normal [...] 36.0-66.0 Lymph % 27.1 % Normal 24.0-44.0 [place] % 6.4 % Normal 2.0-8.0 Eos % 1.5 % Normal 0.0-3.0 Baso % 0.3 % Normal 0.0-1.0 Immature Granulocyte % 0.4 % Normal 0-3.0 Nucleated Red Blood Cell % 0.0 % Normal 0-0 Neutrophils # 6.4 10 Normal 1.5-8.5 Lymph # 2.7 10 Normal 1.5-5.0 [place] # 0.6 10 Normal 0.0-0.8 Eos # 0.2 10 Normal 0.0-0.5 Baso # 0.0 10 Normal 0.0-0.2 Covid-19 11/20/2020 [facility] Sars-CoV-2, Tracey Not Detected Not Detected 4 Sars-CoV-2, Tracey 2 Day Tat Performed Laboratory test finding 11/17/2020 [facility] l Ferritin Krysta 63.5 ng/mL 3.0 - 105 5 Iron Binding Capacity 11/17/2020 [facility] Iron 58 g/dL 42 - 135 Uibc 173 g/dL 112 - 347 Tibc 231 g/dL Low 250 - 450 Iron Sat 25 % CBC W/Automated Diff 11/17/2020 [facility] CBC W/Automated Diff (SEE NOTE) 6 WBC [...] 80.0 Lymph 34.6 % 25.0 - 40.0 [place] 7.5 % 3.0 - 8.0 Eos 2.8 % 0.0 - 7.0 Baso 0.4 % 0.0 - 2.5 %Ig 0.4 % High 0.0 - 0.0 %NRBC 0.0 % 0.0 - 0.0 #Neut 5.48 10^3/uL 2.00 - 6.90 #Lymph 3.49 10^3/uL High 0.60 - 3.40 #[place] 0.76 10^3/uL 0.00 - 0.90 #Eos 0.28 10^3/uL 0.00 - 0.70 #Baso 0.04 10^3/uL 0.00 - 0.20 #Ig 0.04 10^3/uL 0.00 - 0.10 #NRBC 0.00 10^3/uL 0.00 - 0.00 Manual Diff NOT INDICATED RBC Morph NOT INDICATED Laboratory test finding 11/17/2020 [facility] l Vitamin B12 Serum 204 pg/mL Low 232 - 1245 Vitamin D (25-Hydroxy) 19 NG/ML 7 Comprehensive Metabolic Panel 11/17/2020 [facility] ospital Comprehensive Metabo (SEE NOTE) 8 Sodium [...] >60 mL/min 9 Laboratory test finding 11/09/2020 [facility] T4 - Free 1.27 ng/dL 0.93 - 1.70 TSH Highly Sensitive 0.34 uIU/mL Low 0.47 - 5.01 Inhouse-Influenza A&B Rna Prob 09/25/2020 In Office Influenza Virus A QL PCR negative Negative Influenza Virus B QL PCR negative Negative Laboratory test finding 09/25/2020 [facility] Coronavirus Covid-19 Not Detected Not Detected 10 Covid-19 09/03/2020 [facility] Sars-CoV-2, Tracey Not Detected Not Detected 11 Sars-CoV-2, Tracey 2 Day Tat Performed 1 This nucleic acid amplificat ion test was developed and its performance characteristics determined by [facility]. Nucleic acid amplification tests include RT-PCR and [...] (not detected) result in this assay. 2 note:<nlbl:[facility] ed> 3 Units are mL/min/1.73 m2 Chronic Kidney Disease Staging per NKF: Stage I & II GFR >=60 Normal to Mildly Decreased Stage III GFR 30-59 Moderately Decreased Stage IV GFR 15-29 Severely Decreased Stage V GFR <15 Very Little GFR Left ESRD GFR <15 on RAMPMAN 4 This nucleic acid amplificat ion test was developed and its performance characteristics determined by [facility]. Nucleic acid amplification tests include RT-PCR and [...] developed and its performance characteristics determined by [facility]. Nucleic acid amplification tests include RT-PCR and [...] developed and its performance characteristics determined by [facility]. Nucleic acid amplification tests include RT-PCR and [...] assay. Procedures Date Code Description Status 02/17/2021 62665 Office/Outpatient Established Lo w MDM 20-29 Min Completed 02/17/2021 96953 Office/Outpatient New Low MDM 30 -44 Minutes Completed 02/17/2021 25792 Admin Patient Focused Health Ris k Assessment Instrument Completed 02/17/2021 13049 Brief Emotional/Beha v Assessment W/ Scoring Doc Per Standard Inst Completed 02/10/2021 59483 Office/Outpatient Established Mo d MDM 30-39 Min Completed 01/29/2021 34506 Office Visit New Level 1 Complet ed 01/24/2021 93019 Office/Outpatient Established Lo w MDM 20-29 Min Completed 01/24/2021 93665 Pulse Oximetry Single Determinat ion Completed 11/17/2020 64837 Office/Outpatient Established Lo w MDM 20-29 Min Completed 11/09/2020 35476 Office/Outpatient Established Mo d MDM 30-39 Min Completed 10/06/2020 91093 Office/Outpatient Established Lo w MDM 20-29 Min Completed 10/03/2020 25145 Office/Outpatient Established Lo w MDM 20-29 Min Completed 09/25/2020 04087 Office/Outpatient Established Lo w MDM 20-29 Min Completed 09/12/2020 49783 Office Visit New Level 1 Complet ed [...] current episod e mixed, unspecified Olivia Rowland [facility], CASAC 01/22/2021 F12.20 Cannabis dependence, uncomplicat ed Olivia Rowland [facility], CASAC 01/22/2021 F10.11 Alcohol abuse, in remission Armand Rolwand [facility], CASAC 12/23/2020 F31.60 Bipolar disorder, current episod e mixed, unspecified Olivia Rowland [facility], CASAC 12/23/2020 F12.20 Cannabis dependence, uncomplicat ed Olivia Rowland [facility], CASAC 12/23/2020 F10.11 Alcohol abuse, in remission Armand Rowland LM, CASAC 11/18/2020 F31.60 Bipolar disorder, current episod e mixed, unspecified Olivia Rowland [facility], CASAC 11/18/2020 F12.20 Cannabis dependence, uncomplicat ed Olivia Rowland [facility], CASAC 11/18/2020 F10.11 Alcohol abuse, in [...] F10.11 Alcohol abuse, in remission Armand morales MICHELET Rowland, CASAC 10/06/2020 M62.830 Muscle spasm of back Lamine Sullivan, FINANCIAL ADMINISTRATOR 10/03/2020 G43.009 Migraine without aur a, not intractable, without status migrainosus Eloise Cheema PA-C 09/25/2020 R05 Cough Beck Johnson , FINANCIAL ADMINISTRATOR 09/16/2020 F31.60 Bipolar disorder, current episod e [...] 08/26/2020 F12.20 Cannabis dependence, uncomplicat ed Olivia MIKAYLA Rowland, CASAC 08/26/2020 F10.11 Alcohol abuse, in remission Armand carmen Rowland LM, CASAC Plan of Treatment Future Appointment(s):* 05/27/2021 1:00 pm - Juan [facility] at [facility] * 03/11/2021 10:00 am - Jessica Antoine NP [facility] * 03/23/2021 2:40 pm - Nolan Avalos PA-C at [facility] * 03/23/2021 2:00 pm - MICHELET Lal, CASAC at [facility] 02/17/2021 - Juan Storey MD* G43.009 Migraine without aura, not intractable, without status migrainosus* New Medication:* Emgality 120 mg/ml - give one dose sc monthly. * New Labs:* Comprehensive Metabolic Panel, Ordered: 02/17/21 * E55.9 Vitamin D deficiency, unspecified* New Labs:* Vitamin D (25-Hydroxy), Ordered: 02/17/21 * D51.9 Vitamin B12 deficiency anemia, unspecified* New Labs:* Vitamin B12 Serum, Ordered: 02/17/21 * CBC W/Automated Diff, Ordered: 02/17/21 * Iron Binding Capacity, Ordered: 02/17/21 * Iron, Ordered: 02/17/21 * Ferritin Krysta, Ordered: 02/17/21 Functional Status Description No Information Available Mental Status Description No Information Available Referrals Description No Information Available
--- OUTSIDE RECORDS SUMMARY | 2021-03-17 19:26 | CCD | Continuity of Care Document ---
Author Author Kimberley KENNEY LIFE SPECIALIST Organization Unknown Address [address] [place] [address] Phone [phone] Care Team Providers Care Cash Surrender Calculator Name Role Phone Juan Storey M.D. AUTM [phone] [facility] [address] [facility] AUTM [phone] [facility] AUTM [phone] [facility] AUTM [phone] Problems Active Problems Provider Date Migraine with [...] Yon Cota 05/22/2020 Vitamin D (Ergocalciferol) 1.25mg (42952 Ut) Capsules 1 cap by mouth every two weeks 6caps E55.9 Juan Storey MD 02/24/2020 Montelukast Sodium 10mg Tablets 1 by mouth every day 90tabs Valerie30.9 Juan Storey MD 02/24/2020 History Medications Rizatriptan [...] CPT Code Status Date Vaccine Lot # 46511 Given 02/24/2020 Influenza (>= 6 Months) P.F. Vaccine [id number] Given 03/27/2018 Influenza (>= 6 Months) P.F. [...] Test Result H/L Range Note Covid-19 02/22/2021 [facility] Sars-CoV-2, Tracey Not Detected Not Detected [...] AB QL Serum <pending> Bacterial Vaginosis 02/17/2021 [facility] Source: Genital 3 Isabela species Positive Abnormal Negative Gardnerella vaginalis Positive Abnormal Negative Trichomonas vaginalis Negative Negative Chlamydia GC/Trich 02/17/2021 [facility] Source: Genital Chlamydia by Tracey Negative Negative Gonococcus by Tracey Negative Negative Trich vag by Tracey Negative Negative Ua With Reflex To Ua Culture 02/17/2021 [facility] spital Ua Reflex To Ua Cult (SEE NOTE) 4, 5 Source R Color yellow Normal: Yellow Clarity hazy Normal: Clear Spec [place] 1.020 1.001 - 1.030 pH 6 5 [...] Yeast Few Abnormal 6 Cuture Urine 02/17/2021 [facility] Culture Urine (SEE NOTE) 7 Covid-19 01/24/2021 [facility] Sars-CoV-2, Tracey Not Detected Not Detected 8 Sars-CoV-2, Tracey 2 Day Tat Performed CBC With Differential 01/06/2021 [facility] White Blood Count 9.9 10 Normal [...] 36.0-66.0 Lymph % 27.1 % Normal 24.0-44.0 Hill % 6.4 % Normal 2.0-8.0 Eos % 1.5 % Normal 0.0-3.0 Baso % 0.3 % Normal 0.0-1.0 Immature Granulocyte % 0.4 % Normal 0-3.0 Nucleated Red Blood Cell % 0.0 % Normal 0-0 Neutrophils # 6.4 10 Normal 1.5-8.5 Lymph # 2.7 10 Normal 1.5-5.0 Hill # 0.6 10 Normal 0.0-0.8 Eos # 0.2 10 Normal 0.0-0.5 Baso # 0.0 10 Normal 0.0-0.2 Laboratory test finding 01/06/2021 [facility] Ferritin 73 NG/ML Normal 8-252 9 Total Iron Binding Capacit 01/06/2021 [facility] Iron (Fe) 78 g/dL Normal 50-170 Total Iron Binding Capacity 256 g/dL Normal 250-450 Percent Saturation 30.5 % Normal 13.2-45.0 Comprehensive Metabolic Profil 01/06/2021 [facility] Glucose, Fasting 109 mg/dL High 70-100 [...] Albumin/Globulin Ratio 1.2 Normal 1.2-2.2 Covid-19 11/20/2020 [facility] Sars-CoV-2, Tracey Not Detected Not Detected 11 Sars-CoV-2, Tracey 2 Day Tat Performed Laboratory test finding 11/17/2020 [facility] l Ferritin Krysta 63.5 ng/mL 3.0 - 105 12 Iron Binding Capacity 11/17/2020 [facility] Iron 58 g/dL 42 - 135 Uibc 173 g/dL 112 - 347 Tibc 231 g/dL Low 250 - 450 Iron Sat 25 % CBC W/Automated Diff 11/17/2020 [facility] CBC W/Automated Diff (SEE NOTE) 13 [...] 80.0 Lymph 34.6 % 25.0 - 40.0 Hill 7.5 % 3.0 - 8.0 Eos 2.8 % 0.0 - 7.0 Baso 0.4 % 0.0 - 2.5 %Ig 0.4 % High 0.0 - 0.0 %NRBC 0.0 % 0.0 - 0.0 #Neut 5.48 10^3/uL 2.00 - 6.90 #Lymph 3.49 10^3/uL High 0.60 - 3.40 #Hill 0.76 10^3/uL 0.00 - 0.90 #Eos 0.28 10^3/uL 0.00 - 0.70 #Baso 0.04 10^3/uL 0.00 - 0.20 #Ig 0.04 10^3/uL 0.00 - 0.10 #NRBC 0.00 10^3/uL 0.00 - 0.00 Manual Diff NOT INDICATED RBC Morph NOT INDICATED Laboratory test finding 11/17/2020 [facility] Vitamin B12 Serum 204 pg/mL Low 232 - 1245 Vitamin D (25-Hydroxy) 19 NG/ML 14 Comprehensive Metabolic Panel 11/17/2020 [facility] Comprehensive Metabo (SEE NOTE) 15 Sodium 138 [...] >60 mL/min 16 Laboratory test finding 11/09/2020 [facility] T4 - Free 1.27 ng/dL 0.93 - 1.70 TSH Highly Sensitive 0.34 uIU/mL Low 0.47 - 5.01 Inhouse-Influenza A&B Rna Prob 09/25/2020 In Office Influenza Virus A QL PCR negative Negative Influenza Virus B QL PCR negative Negative Laboratory test finding 09/25/2020 [facility] Coronavirus Covid-19 Not Detected Not Detected 17 Covid-19 09/03/2020 [facility] Sars-CoV-2, Tracey Not Detected Not Detected 18 Sars-CoV-2, Tracey 2 Day Tat Performed 1 .~.~Z11.59 2 This nucleic acid amplificat ion test was developed and its performance characteristics determined by [employer]. Nucleic acid amplification tests include RT-PCR and [...] URINALYSIS 6 HYPAE YEAST 7 _CULTURE URINE_ ^$926300 ^^185716 $$342398 ^^228323 $$422375 $$599205 $$722982 $$823131 $$259375 $$680420 $$334985 $$060497 $$794975 $$946463 $$924469 $$323787 $$659218 $$199257 $$847315 $$665094 $$703569 $$115873 $$074083 $$928869 $$348424 $$414045 $$917065 ^^230939 $$018040 $$426022 $$053296 -- Continued on next page -- Patient: OSORIO Lind Order: [id number] Page 2 Culture: CULTURE URINE Status: Final -- Continued on next page -- Patient: OSORIO Lind Order: [id number] Page 2 Culture: CULTURE URINE Status: Prelim -- Continued on next page -- Patient: OSORIO Lind Order: [id number] Page 2 Culture: CULTURE URINE Status: Prelim $$[id number] $$[id number] REPORTED DATE/TIME: 02/24/2021 12:06 Culture: CULTURE URINE [...] coli Flag: A Patient: OSORIO Lind Order: [id number] Page 3 Culture: CULTURE URINE Status: Final [...] S S . . . . . .66671-7 Gentamicin S S . . . . . .267-5 Imipenem S S . . . . . .279-0 Levofloxacin S S . . . . . .01258-9 Meropenem S S . . . . . .6652-2 Nitrofurantoin S S . . . . . .363-2 Piperacillin/Tazobactam S S . . . . . .412-7 Tetracycline S S . . . . . .496-0 Tobramycin S S . . . . . .508-2 Trimethoprim/Sulfa S S . . . . . .516-5 P1 Test performed by: [employer] [facility] #: [id number] [address] [place] [address] [id number] [facility] [address] Director Of Corporate Sponsorships : Pacheco Castillo MD NPI #: Anchor Operator : 02/22/21.0645.XMT.SENT REF 02/23/21.1623.XMT.SENT REF 02/24/21.1406.XMT.SENT REF 8 This nucleic acid amplificat ion test was developed and its performance characteristics determined by [employer]. Nucleic acid amplification tests include RT-PCR and [...] Little GFR Left ESRD GFR <15 on CONTRACT ADMINISTRATION SPECIALIST 11 This nucleic acid amplificat ion test was developed and its performance characteristics determined by [employer]. Nucleic acid amplification tests include RT-PCR and [...] developed and its performance characteristics determined by [employer]. Nucleic acid amplification tests include RT-PCR and [...] developed and its performance characteristics determined by [employer]. Nucleic acid amplification tests include RT-PCR and [...] assay. Procedures Date Code Description Status 02/17/2021 73120 Office/Outpatient Established Lo w MDM 20-29 Min Completed 02/17/2021 73803 Office/Outpatient New Low MDM 30 -44 Minutes Completed 02/17/2021 04273 Admin Patient Focused Health Ris k Assessment Instrument Completed 02/17/2021 31136 Brief Emotional/Beha v Assessment W/ Scoring Doc Per Standard Inst Completed 02/10/2021 11500 Office/Outpatient Established Mo d MDM 30-39 Min Completed 01/29/2021 87761 Office Visit New Level [address] [facility] ed 01/24/2021 57248 Office/Outpatient Established Lo w MDM 20-29 Min Completed 01/24/2021 05234 Pulse Oximetry Single Determinat ion Completed 11/17/2020 41739 Office/Outpatient Established Lo w MDM 20-29 Min Completed 11/09/2020 37462 Office/Outpatient Established Mo d MDM 30-39 Min Completed 10/06/2020 82068 Office/Outpatient Established Lo w MDM 20-29 Min Completed 10/03/2020 77540 Office/Outpatient Established Lo w MDM 20-29 Min Completed 09/25/2020 79786 Office/Outpatient Established Lo w MDM 20-29 Min Completed 09/12/2020 49966 Office Visit New Level 1 [facility] ed Medical Devices Description No Information Available [...] F12.20 Cannabis dependence, uncomplicat ed Olivia Rowland [facility], [facility] 01/22/2021 F10.11 Alcohol abuse, in remission Armand Rowland LM, [facility] 12/23/2020 F31.60 Bipolar disorder, current episod e mixed, unspecified Olivia Rowland LM, [facility] 12/23/2020 F12.20 Cannabis dependence, uncomplicat ed Olivia Rowland [facility], [facility] 12/23/2020 F10.11 Alcohol abuse, in [...] M62.830 Muscle spasm of back Lamine Sullivan, LIFE SPECIALIST 10/03/2020 G43.009 Migraine without aur a, not intractable, without status migrainosus Eloise Cheema PA-C 09/25/2020 R05 Cough Beck Kenney , LIFE SPECIALIST 09/16/2020 F31.60 Bipolar disorder, current episod e [...] Cui, [facility] Plan of Treatment Future Appointment(s):* 05/27/2021 1:00 pm - Juan Storey MD at Family Practice * 03/11/2021 10:00 am - Jessica Antoine NP at [facility] * 03/23/2021 2:40 pm - Nolan Avalos PA-C at Behavioral Health * 03/23/2021 2:00 pm - MICHELET Lal, [facility] at Behavioral Health 01/29/2021 - Maxi Hunter PA-C* J06.9 Acute upper respiratory infection, unspecified Functional Status Description No Information Available Mental Status Description No Information Available Referrals Description No Information Available
--- OUTSIDE RECORDS SUMMARY | 2021-03-17 19:26 | CCD | Continuity of Care Document ---
Author Author Kimberley STOREY M.D. Organization Unknown Address [address] [place] [address] Phone [phone] Care Team Providers Care Fiction Writer Name Role Phone Juan Storey M.D. AUTM [phone] [facility] [address] [facility] AUTM [phone] [facility] AUTM [phone] [facility] AUTM Problems Active [...] Yon Cota 05/22/2020 Vitamin D (Ergocalciferol) 1.25mg (04284 Ut) Capsules 1 cap by mouth every [...] CPT Code Status Date Vaccine Lot # 14582 Given 02/24/2020 Influenza (>= 6 Months) P.F. Vaccine [id number] Given 03/27/2018 Influenza (>= 6 Months) P.F. [...] Patients Choice Z#Other Observations <pending> Covid-19 01/24/2021 [facility] Sars-CoV-2, Tracey Not Detected Not Detected 1 Sars-CoV-2, Tracey 2 Day Tat Performed Total Iron Binding Capacit 01/06/2021 [facility] Iron (Fe) 78 g/dL Normal 50-170 Total Iron Binding Capacity 256 g/dL Normal 250-450 Percent Saturation 30.5 % Normal 13.2-45.0 Laboratory test finding 01/06/2021 [facility] Ferritin 73 NG/ML Normal 8-252 2 Comprehensive Metabolic Profil 01/06/2021 [facility] Glucose, Fasting 109 mg/dL High 70-100 Blood [...] 1.2 Normal 1.2-2.2 CBC With Differential 01/06/2021 [facility] White Blood Count 9.9 10 Normal 4.0-10.0 [...] 36.0-66.0 Lymph % 27.1 % Normal 24.0-44.0 Nolan % 6.4 % Normal 2.0-8.0 Eos % 1.5 % Normal 0.0-3.0 Baso % 0.3 % Normal 0.0-1.0 Immature Granulocyte % 0.4 % Normal 0-3.0 Nucleated Red Blood Cell % 0.0 % Normal 0-0 Neutrophils # 6.4 10 Normal 1.5-8.5 Lymph # 2.7 10 Normal 1.5-5.0 Nolan # 0.6 10 Normal 0.0-0.8 Eos # 0.2 10 Normal 0.0-0.5 Baso # 0.0 10 Normal 0.0-0.2 Covid-19 11/20/2020 [facility] Sars-CoV-2, Tracey Not Detected Not Detected 4 Sars-CoV-2, Tracey 2 Day Tat Performed Laboratory test finding 11/17/2020 [facility] l Ferritin Krysta 63.5 ng/mL 3.0 - 105 5 Iron Binding Capacity 11/17/2020 [facility] Iron 58 g/dL 42 - 135 Uibc 173 g/dL 112 - 347 Tibc 231 g/dL Low 250 - 450 Iron Sat 25 % CBC W/Automated Diff 11/17/2020 [facility] CBC W/Automated Diff (SEE NOTE) 6 [...] 80.0 Lymph 34.6 % 25.0 - 40.0 Nolan 7.5 % 3.0 - 8.0 Eos 2.8 % 0.0 - 7.0 Baso 0.4 % 0.0 - 2.5 %Ig 0.4 % High 0.0 - 0.0 %NRBC 0.0 % 0.0 - 0.0 #Neut 5.48 10^3/uL 2.00 - 6.90 #Lymph 3.49 10^3/uL High 0.60 - 3.40 #Nolan 0.76 10^3/uL 0.00 - 0.90 #Eos 0.28 10^3/uL 0.00 - 0.70 #Baso 0.04 10^3/uL 0.00 - 0.20 #Ig 0.04 10^3/uL 0.00 - 0.10 #NRBC 0.00 10^3/uL 0.00 - 0.00 Manual Diff NOT INDICATED RBC Morph NOT INDICATED Laboratory test finding 11/17/2020 [facility] l Vitamin B12 Serum 204 pg/mL Low 232 - 1245 Vitamin D (25-Hydroxy) 19 NG/ML 7 Comprehensive Metabolic Panel 11/17/2020 [facility] Comprehensive Metabo (SEE NOTE) 8 [...] >60 mL/min 9 Laboratory test finding 11/09/2020 [facility] T4 - Free 1.27 ng/dL 0.93 - 1.70 TSH Highly Sensitive 0.34 uIU/mL Low 0.47 - 5.01 Inhouse-Influenza A&B Rna Prob 09/25/2020 In Office Influenza Virus A QL PCR negative Negative Influenza Virus B QL PCR negative Negative Laboratory test finding 09/25/2020 [facility] Coronavirus Covid-19 Not Detected Not Detected 10 Covid-19 09/03/2020 [facility] Sars-CoV-2, Tracey Not Detected Not Detected 11 Sars-CoV-2, Tracey 2 Day Tat Performed 1 This nucleic acid amplificat ion test was developed and its performance characteristics determined by [employer]. Nucleic acid amplification tests include RT-PCR and [...] (not detected) result in this assay. 2 note:<nlbl:[facility]ch[facility] ed> 3 Units are mL/min/1.73 m2 Chronic Kidney Disease Staging per NKF: Stage I & II GFR >=60 Normal to Mildly Decreased Stage III GFR 30-59 Moderately Decreased Stage IV GFR 15-29 Severely Decreased Stage V GFR <15 Very Little GFR Left ESRD GFR <15 on SCRUB NURSE 4 This nucleic acid amplificat ion test was developed and its performance characteristics determined by [employer]. Nucleic acid amplification tests include RT-PCR and [...] developed and its performance characteristics determined by [employer]. Nucleic acid amplification tests include RT-PCR and [...] developed and its performance characteristics determined by [employer]. Nucleic acid amplification tests include RT-PCR and [...] assay. Procedures Date Code Description Status 02/17/2021 49027 Office/Outpatient Established Lo w MDM 20-29 Min Completed 02/17/2021 57880 Office/Outpatient New Low MDM 30 -44 Minutes Completed 02/17/2021 13245 Admin Patient Focused Health Ris k Assessment Instrument Completed 02/17/2021 87410 Brief Emotional/Beha v Assessment W/ Scoring Doc Per Standard Inst Completed 02/10/2021 20429 Office/Outpatient Established Mo d MDM 30-39 Min Completed 01/29/2021 26310 Office Visit New Level 1 Complet ed 01/24/2021 93633 Office/Outpatient Established Lo w MDM 20-29 Min Completed 01/24/2021 77045 Pulse Oximetry Single Determinat ion Completed 11/17/2020 16535 Office/Outpatient Established Lo w MDM 20-29 Min Completed 11/09/2020 25973 Office/Outpatient Established Mo d MDM 30-39 Min Completed 10/06/2020 97562 Office/Outpatient Established Lo w MDM 20-29 Min Completed 10/03/2020 07234 Office/Outpatient Established Lo w MDM 20-29 Min Completed 09/25/2020 59034 Office/Outpatient Established Lo w MDM 20-29 Min Completed 09/12/2020 42248 Office Visit New Level 1 Complet ed [...] current episod e mixed, unspecified Olivia Rowland [facility], [facility] 01/22/2021 F12.20 Cannabis dependence, uncomplicat ed Olivia Rowland [facility] 01/22/2021 F10.11 Alcohol abuse, in remission Armand Rowland [facility] 12/23/2020 F31.60 Bipolar disorder, current episod e mixed, unspecified Olivia Rowland [facility] 12/23/2020 F12.20 Cannabis dependence, uncomplicat ed Olivia Rowland [facility] 12/23/2020 F10.11 Alcohol abuse, in remission Armand Rowland LM, [facility] 11/18/2020 F31.60 Bipolar disorder, current episod e mixed, unspecified Olivia Rowland [facility] 11/18/2020 F12.20 Cannabis dependence, uncomplicat ed Olivia Rowland [facility] 11/18/2020 F10.11 Alcohol abuse, [...] M62.830 Muscle spasm of back Lamine Sullivan, EYEGLASS FITTER 10/03/2020 G43.009 Migraine without aur a, not intractable, without status migrainosus Eloise Cheema PA-C 09/25/2020 R05 Cough Beck Johnson , EYEGLASS FITTER 09/16/2020 F31.60 Bipolar disorder, current episod e [...]
--- OUTSIDE RECORDS SUMMARY | 2021-03-17 19:26 | CCD | Continuity of Care Document ---
Author Author Kimberley KENNEY FLATWORK FINISHER Organization Unknown Address [address] [place] [address] Phone [phone] Care Team Providers Care Construction Grip Name Role Phone Juan Storey M.D. AUTM [phone] [facility] AUTM [phone] [facility] AUTM [facility] AUTM [phone] Problems Active Problems Provider Date Migraine with [...] Yon Cota 05/22/2020 Vitamin D (Ergocalciferol) 1.25mg (18905 Ut) Capsules 1 cap by mouth every [...] CPT Code Status Date Vaccine Lot # [id number] Given 02/24/2020 Influenza (>= 6 Months) P.F. Vaccine [id number] Given 03/27/2018 Influenza (>= 6 Months) P.F. [...] Date Facility Test Result H/L Range Note Laboratory test finding 02/22/2021 [facility] Covid-19 <pending> Affirm Vaginitis Panel 02/17/2021 [facility] [...] AB QL Serum <pending> Bacterial Vaginosis 02/17/2021 [facility] Source: Genital 1 Isabela species Positive Abnormal Negative Gardnerella vaginalis Positive Abnormal Negative Trichomonas vaginalis Negative Negative Chlamydia GC/Trich 02/17/2021 [facility] Source: Genital Chlamydia by Tracey Negative Negative Gonococcus by Tracey Negative Negative Trich vag by Tracey Negative Negative Ua With Reflex To Ua Culture 02/17/2021 [facility] spital Ua Reflex To Ua Cult (SEE NOTE) 2, 3 Source R Color yellow Normal: Yellow Clarity hazy Normal: Clear Spec [place] 1.020 1.001 - 1.030 pH 6 5 [...] 1+ Normal: None Seen Yeast Few Abnormal 4 Covid-19 01/24/2021 [facility] Sars-CoV-2, Tracey Not Detected Not Detected 5 Sars-CoV-2, Tracey 2 Day Tat Performed CBC With Differential 01/06/2021 [facility] White Blood Count 9.9 10 Normal 4.0-10.0 [...] 36.0-66.0 Lymph % 27.1 % Normal 24.0-44.0 [place] % 6.4 % Normal 2.0-8.0 Eos % 1.5 % Normal 0.0-3.0 Baso % 0.3 % Normal 0.0-1.0 Immature Granulocyte % 0.4 % Normal 0-3.0 Nucleated Red Blood Cell % 0.0 % Normal 0-0 Neutrophils # 6.4 10 Normal 1.5-8.5 Lymph # 2.7 10 Normal 1.5-5.0 [place]undy # 0.6 10 Normal 0.0-0.8 Eos # 0.2 10 Normal 0.0-0.5 Baso # 0.0 10 Normal 0.0-0.2 Laboratory test finding 01/06/2021 [facility] Ferritin 73 NG/ML Normal 8-252 6 Total Iron Binding Capacit 01/06/2021 [facility] Iron (Fe) 78 g/dL Normal 50-170 Total Iron Binding Capacity 256 g/dL Normal 250-450 Percent Saturation 30.5 % Normal 13.2-45.0 Comprehensive Metabolic Profil 01/06/2021 [facility] Glucose, Fasting 109 mg/dL High 70-100 Blood Urea Nitrogen 14 mg/dL Normal 7-18 Creatinine For GFR 0.66 mg/dL Normal 0.55-1.30 Glomerular Filtration Rate > 60.0 Normal >60 7 Sodium Level 141 mEq/L Normal 136-145 Potassium [...] Albumin/Globulin Ratio 1.2 Normal 1.2-2.2 Covid-19 11/20/2020 [facility] Sars-CoV-2, Tracey Not Detected Not Detected 8 Sars-CoV-2, Tracey 2 Day Tat Performed Laboratory test finding 11/17/2020 [facility] l Ferritin Krysta 63.5 ng/mL 3.0 - 105 9 Iron Binding Capacity 11/17/2020 [facility] Iron 58 g/dL 42 - 135 Uibc 173 g/dL 112 - 347 Tibc 231 g/dL Low 250 - 450 Iron Sat 25 % CBC W/Automated Diff 11/17/2020 [facility] CBC W/Automated Diff (SEE NOTE) 10 WBC 10.1 10^3/uL 4.2 - 11.0 RBC [...] 80.0 Lymph 34.6 % 25.0 - 40.0 [place] 7.5 % 3.0 - 8.0 Eos 2.8 % 0.0 - 7.0 Baso 0.4 % 0.0 - 2.5 %Ig 0.4 % High 0.0 - 0.0 %NRBC 0.0 % 0.0 - 0.0 #Neut 5.48 10^3/uL 2.00 - 6.90 #Lymph 3.49 10^3/uL High 0.60 - 3.40 #[place]undy 0.76 10^3/uL 0.00 - 0.90 #Eos 0.28 10^3/uL 0.00 - 0.70 #Baso 0.04 10^3/uL 0.00 - 0.20 #Ig 0.04 10^3/uL 0.00 - 0.10 #NRBC 0.00 10^3/uL 0.00 - 0.00 Manual Diff NOT INDICATED RBC Morph NOT INDICATED Laboratory test finding 11/17/2020 [facility] Vitamin B12 Serum 204 pg/mL Low 232 - 1245 Vitamin D (25-Hydroxy) 19 NG/ML 11 Comprehensive Metabolic Panel 11/17/2020 [facility] Comprehensive Metabo (SEE NOTE) 12 Sodium 138 mEq/L 134 - 153 Potassium [...] >60 mL/min Afr Amer GFR >60 mL/min 13 Laboratory test finding 11/09/2020 [facility] T4 - Free 1.27 ng/dL 0.93 - 1.70 TSH Highly Sensitive 0.34 uIU/mL Low 0.47 - 5.01 Inhouse-Influenza A&B Rna Prob 09/25/2020 In Office Influenza Virus A QL PCR negative Negative Influenza Virus B QL PCR negative Negative Laboratory test finding 09/25/2020 [facility] Coronavirus Covid-19 Not Detected Not Detected 14 Covid-19 09/03/2020 [facility] Sars-CoV-2, Tracey Not Detected Not Detected 15 Sars-CoV-2, Tracey 2 Day Tat Performed 1 {SOURCE: Genital 2 .~.~R30.0 3 URINALYSIS 4 HYPAE YEAST 5 This nucleic acid amplificat ion test was developed and its performance characteristics determined by [employer]. Nucleic acid amplification tests include RT-PCR and [...] negative (not detected) result in this assay. 6 note:<nlbl:[facility]_chang ed> 7 Units are mL/min/1.73 m2 Chronic Kidney Disease Staging per NKF: Stage I & II GFR >=60 Normal to Mildly Decreased Stage III GFR 30-59 Moderately Decreased Stage IV GFR 15-29 Severely Decreased Stage V GFR <15 Very Little GFR Left ESRD GFR <15 on CASE MGR 8 This nucleic acid amplificat ion test was developed and its performance characteristics determined by [employer]. Nucleic acid amplification tests include RT-PCR and [...] (not detected) result in this assay. 9 Is patient fasting? N 10 COMPLETE BLOOD COUNT 11 VITAMIN-D(25HYDROXY) Deficiency: <=20 ng/ml Insufficiency: 21-29 ng/ml Preferred level: => 30 ng/ml 12 COMPREHENSIVE METABOLIC PANE L 13 Male GFR Interprentation 20-49 yrs >60 mL/min Normal 50-59 yrs >56 mL/min Normal 60-69 yrs >49 mL/min Normal 70-79yrs >42 mL/min Normal 80 and above >35 mL/min Normal Female GFR Interpretation 20-39 yrs >60 mL/min Normal 40-49 yrs >58 mL/min Normal 50-59 yrs >51 mL/min Normal 60-69 yrs >45 mL/min Normal 70-79 yrs >39 mL/min Normal 80 and above >32 mL/min Normal 14 This nucleic acid amplificat ion test was developed and its performance characteristics determined by [employer]. Nucleic acid amplification tests include RT-PCR and [...] negative (not detected) result in this assay. 15 This nucleic acid amplificat ion test was developed and its performance characteristics determined by [employer]. Nucleic acid amplification tests include RT-PCR and [...] assay. Procedures Date Code Description Status 02/17/2021 98303 Office/Outpatient Established Lo w MDM 20-29 Min Completed 02/17/2021 75458 Office/Outpatient New Low MDM 30 -44 Minutes Completed 02/17/2021 68399 Admin Patient Focused Health Ris k Assessment Instrument Completed 02/17/2021 28832 Brief Emotional/Beha v Assessment W/ Scoring Doc Per Standard Inst Completed 02/10/2021 18833 Office/Outpatient Established Mo d MDM 30-39 Min Completed 01/29/2021 03291 Office Visit New Level 1 [facility] ed 01/24/2021 94013 Office/Outpatient Established Lo w MDM 20-29 Min Completed 01/24/2021 01111 Pulse Oximetry Single Determinat ion Completed 11/17/2020 27300 Office/Outpatient Established Lo w MDM 20-29 Min Completed 11/09/2020 22043 Office/Outpatient Established Mo d MDM 30-39 Min Completed 10/06/2020 35111 Office/Outpatient Established Lo w MDM 20-29 Min Completed 10/03/2020 56888 Office/Outpatient Established Lo w MDM 20-29 Min Completed 09/25/2020 88756 Office/Outpatient Established Lo w MDM 20-29 Min Completed 09/12/2020 77461 Office Visit New Level 1 [facility] ed Medical Devices Description No Information Available Encounters Type Date Location Provider Dx Diagnosis Office Visit 02/17/2021 2:15p [facility] Jessica Antoine NP B37.3 Candidiasis of vulva and vagina Z11.3 Encntr screen for infections w sexl mode of transmiss Assessments Date Code Description Provider 02/17/2021 B37.3 Candidiasis of vulva and vagina Jessica Antoine, FLATWORK FINISHER 02/17/2021 Z11.3 Encounter for screen ing for infections with a predominantly sexual mode of transmission Jessica O'paul, FLATWORK FINISHER 02/17/2021 G43.009 Migraine without aur a, not [...] gastroenteritis and c olitis, unspecified Lydia Vidal, ISIDRO 01/22/2021 F31.60 Bipolar disorder, current episod e [...] abuse, in remission Armand Rowland [facility] 11/17/2020 G43.009 Migraine without aur a, not intractable, without status migrainosus Juan Storey MD 11/17/2020 E55.9 Vitamin D deficiency, unspecifie d Juan Storey MD 11/17/2020 J30.9 Allergic rhinitis, unspecified H arkathleen Storey MD 11/17/2020 D69.3 Immune thrombocytopenic purpura Juan Storey MD 11/17/2020 E61.1 Iron deficiency Juan Storey MD 11/09/2020 F31.60 Bipolar disorder, current episod e mixed, unspecified Nolan Avalos PA-C 11/09/2020 F12.20 Cannabis dependence, uncomplicat ed Nolan Avalos PA-C 11/09/2020 F10.11 Alcohol abuse, in remission Trenton Avalos PA-C 10/14/2020 F31.60 Bipolar disorder, current episod e mixed, unspecified Olivia Rowland [facility] 10/14/2020 F12.20 Cannabis dependence, uncomplicat ed Olivia Rowland [facility] 10/14/2020 F10.11 Alcohol abuse, in remission Armand Rowland [facility] 10/06/2020 M62.830 Muscle spasm of back Lamine Sullivan, FLATWORK FINISHER 10/03/2020 G43.009 Migraine without aur a, not intractable, without status migrainosus Eloise Cheema PA-C 09/25/2020 R05 Cough Star ALizzy Kenney , FLATWORK FINISHER 09/16/2020 F31.60 Bipolar disorder, current episod e mixed, unspecified Olivia Rowland [facility] 09/16/2020 F12.20 Cannabis dependence, uncomplicat ed Olivia Rowland [facility] 09/16/2020 F10.11 Alcohol abuse, in remission Armand Rowland [facility] 09/12/2020 G43.009 Migraine without aur a, not intractable, without status migrainosus Javier Cruz PA-C 08/26/2020 F31.60 Bipolar disorder, current episod e mixed, unspecified MICHELET Lal, ANUPAMA 08/26/2020 F12.20 Cannabis dependence, uncomplicat ed MICHELET Lal, ANUPAMA 08/26/2020 F10.11 Alcohol abuse, in remission MICHELET Cui, ANUPAMA Plan of Treatment Future Appointment(s):* 05/27/2021 1:00 pm - Juan Storey MD at [facility] * 03/11/2021 10:00 am - Jessica Antoine NP at [facility] * 03/23/2021 2:40 pm - Nolan Avalos PA-C at [facility] * 03/23/2021 2:00 pm - MICHELET Lal [facility] at [facility] 01/29/2021 - Maxi Hunter PA-C* J06.9 Acute upper respiratory infection, unspecified Functional Status Description No Information Available Mental Status Description No Information Available Referrals Description No Information Available
--- OUTSIDE RECORDS SUMMARY | 2021-03-17 19:26 | CCD | Continuity of Care Document ---
Author Author Kimberley CHUNG Organization Unknown Address [address] [place] [address] Phone [phone] Care Team Providers Care Director Drug Name Role Phone Juan Storey M.D. AUTM [phone] [facility] [address] [facility] AUTM [facility] AUTM [facility] AUTM Problems [...] Yon Cota 05/22/2020 Vitamin D (Ergocalciferol) 1.25mg (20888 Ut) Capsules 1 cap by mouth every [...] CPT Code Status Date Vaccine Lot # [id number] Given 02/24/2020 Influenza (>= 6 Months) P.F. Vaccine [id number] Given 03/27/2018 Influenza (>= 6 Months) P.F. [...] [facility] Z#Other Observations <pending> Covid-19 01/24/2021 [facility] Sars-CoV-2, Tracey Not Detected Not Detected 1 Sars-CoV-2, Tracey 2 Day Tat Performed Total Iron Binding Capacit 01/06/2021 [facility] Iron (Fe) 78 g/dL Normal 50-170 Total Iron Binding Capacity 256 g/dL Normal 250-450 Percent Saturation 30.5 % Normal 13.2-45.0 Laboratory test finding 01/06/2021 [facility] with [facility] Ferritin 73 NG/ML Normal 8-252 2 Comprehensive Metabolic Profil 01/06/2021 [facility] with [facility] Glucose, Fasting 109 mg/dL High 70-100 [...] 1.2 Normal 1.2-2.2 CBC With Differential 01/06/2021 [facility] with [facility] White Blood Count 9.9 10 Normal [...] 36.0-66.0 Lymph % 27.1 % Normal 24.0-44.0 [place] % 6.4 % Normal 2.0-8.0 Eos % 1.5 % Normal 0.0-3.0 Baso % 0.3 % Normal 0.0-1.0 Immature Granulocyte % 0.4 % Normal 0-3.0 Nucleated Red Blood Cell % 0.0 % Normal 0-0 Neutrophils # 6.4 10 Normal 1.5-8.5 Lymph # 2.7 10 Normal 1.5-5.0 [place] # 0.6 10 Normal 0.0-0.8 Eos # 0.2 10 Normal 0.0-0.5 Baso # 0.0 10 Normal 0.0-0.2 Covid-19 11/20/2020 [facility] Sars-CoV-2, Tracey Not Detected Not Detected 4 Sars-CoV-2, Tracey 2 Day Tat Performed Laboratory test finding 11/17/2020 [facility] l Ferritin Krysta 63.5 ng/mL 3.0 - 105 5 Iron Binding Capacity 11/17/2020 [facility] Iron 58 g/dL 42 - 135 Uibc 173 g/dL 112 - 347 Tibc 231 g/dL Low 250 - 450 Iron Sat 25 % CBC W/Automated Diff 11/17/2020 [facility] CBC W/Automated Diff (SEE NOTE) 6 [...] 80.0 Lymph 34.6 % 25.0 - 40.0 [place] 7.5 % 3.0 - 8.0 Eos 2.8 % 0.0 - 7.0 Baso 0.4 % 0.0 - 2.5 %Ig 0.4 % High 0.0 - 0.0 %NRBC 0.0 % 0.0 - 0.0 #Neut 5.48 10^3/uL 2.00 - 6.90 #Lymph 3.49 10^3/uL High 0.60 - 3.40 #[place] 0.76 10^3/uL 0.00 - 0.90 #Eos 0.28 10^3/uL 0.00 - 0.70 #Baso 0.04 10^3/uL 0.00 - 0.20 #Ig 0.04 10^3/uL 0.00 - 0.10 #NRBC 0.00 10^3/uL 0.00 - 0.00 Manual Diff NOT INDICATED RBC Morph NOT INDICATED Laboratory test finding 11/17/2020 [facility] l Vitamin B12 Serum 204 pg/mL Low 232 - 1245 Vitamin D (25-Hydroxy) 19 NG/ML 7 Comprehensive Metabolic Panel 11/17/2020 [facility] Comprehensive Metabo (SEE NOTE) 8 Sodium [...] >60 mL/min 9 Laboratory test finding 11/09/2020 [employer] [...] 1 Coronavirus Covid-19 Not Detected Not Detected 10 Covid-19 09/03/2020 [facility] Sars-CoV-2, Tracey Not Detected Not Detected 11 Sars-CoV-2, Tracey 2 Day Tat Performed 1 This nucleic acid amplificat ion test was developed and its performance characteristics determined by [employer]. Nucleic acid amplification tests include RT-PCR and [...] (not detected) result in this assay. 2 note:<nlbl:[facility]_chang ed> 3 Units are mL/min/1.73 m2 Chronic Kidney Disease Staging per NKF: Stage I & II GFR >=60 Normal to Mildly Decreased Stage III GFR 30-59 Moderately Decreased Stage IV GFR 15-29 Severely Decreased Stage V GFR <15 Very Little GFR Left ESRD GFR <15 on TRACTOR TRAILER TRUCK DRIVER 4 This nucleic acid amplificat ion test was developed and its performance characteristics determined by [employer]. Nucleic acid amplification tests include RT-PCR and [...] developed and its performance characteristics determined by [employer]. Nucleic acid amplification tests include RT-PCR and [...] developed and its performance characteristics determined by [employer]. Nucleic acid amplification tests include RT-PCR and [...] assay. Procedures Date Code Description Status 02/17/2021 91453 Office/Outpatient Established Lo w MDM 20-29 Min Completed 02/17/2021 55204 Office/Outpatient New Low MDM 30 -44 Minutes Completed 02/17/2021 88575 Admin Patient Focused Health Ris k Assessment Instrument Completed 02/17/2021 26739 Brief Emotional/Beha v Assessment W/ Scoring Doc Per Standard Inst Completed 02/10/2021 07077 Office/Outpatient Established Mo d MDM 30-39 Min Completed 01/29/2021 25176 Office Visit New Level 1 Complet ed 01/24/2021 51705 Office/Outpatient Established Lo w MDM 20-29 Min Completed 01/24/2021 22862 Pulse Oximetry Single Determinat ion Completed 11/17/2020 65387 Office/Outpatient Established Lo w MDM 20-29 Min Completed 11/09/2020 14751 Office/Outpatient Established Mo d MDM 30-39 Min Completed 10/06/2020 09322 Office/Outpatient Established Lo w MDM 20-29 Min Completed 10/03/2020 81656 Office/Outpatient Established Lo w MDM 20-29 Min Completed 09/25/2020 06036 Office/Outpatient Established Lo w MDM 20-29 Min Completed 09/12/2020 50367 Office Visit New Level 1 Complet ed [...] current episod e mixed, unspecified Olivia Rowland [facility] 01/22/2021 F12.20 Cannabis dependence, uncomplicat ed Olivia Rowland [facility], [facility] 01/22/2021 F10.11 Alcohol abuse, in remission Armand Rowland [facility] 12/23/2020 F31.60 Bipolar disorder, current episod e mixed, unspecified Olivia Rowland [facility], [facility] 12/23/2020 F12.20 Cannabis dependence, uncomplicat ed Olivia Rowland [facility], [facility] 12/23/2020 F10.11 Alcohol abuse, in remission Armand Rowland [facility], [facility] 11/18/2020 F31.60 Bipolar disorder, current episod e mixed, unspecified Olivia Rowland [facility] 11/18/2020 F12.20 Cannabis dependence, uncomplicat ed Olivia Rowland [facility] 11/18/2020 F10.11 Alcohol abuse, in remission [...] M62.830 Muscle spasm of back Lamine Sullivan, DIRECTOR OF DIGITAL TECHNOLOGY 10/03/2020 G43.009 Migraine without aur a, not intractable, without status migrainosus Eloise Cheema PA-C 09/25/2020 R05 Cough Beck Johnson , DIRECTOR OF DIGITAL TECHNOLOGY 09/16/2020 F31.60 Bipolar disorder, current episod e [...] 1:00 pm - Juan Storey MD at [facility] * 03/11/2021 10:00 am - Jessica Antoine NP at [facility] * 03/23/2021 2:40 pm - Nolan Avalos PA-C at [facility] * 03/23/2021 2:00 pm - MICHELET Lal, CAS[facility] at [facility] 02/17/2021 - Juan Storey MD* G43.009 [...]
--- OUTSIDE RECORDS SUMMARY | 2021-03-17 19:27 | CCD | Continuity of Care Document ---
Author Author Kimberley STOREY M.D. Organization Unknown Address [address] [place] [address] Phone [phone] Care Team Providers Care Bearing Ring Assembler Name Role Phone Juan Storey M.D. AUTM [phone] [facility] [address] [facility] AUTM [facility] AUTM [facility] AUTM Problems Active [...] Yon Cota 05/22/2020 Vitamin D (Ergocalciferol) 1.25mg (02387 Ut) Capsules 1 cap by mouth every [...] CPT Code Status Date Vaccine Lot # [id number] Given 02/24/2020 Influenza (>= 6 Months) P.F. Vaccine [id number] Given 03/27/2018 Influenza (>= 6 Months) P.F. [...] Patients Choice Z#Other Observations <pending> Covid-19 01/24/2021 [facility] Sars-CoV-2, Tracey Not Detected Not Detected 1 Sars-CoV-2, Tracey 2 Day Tat Performed Total Iron Binding Capacit 01/06/2021 [facility] Iron (Fe) 78 g/dL Normal 50-170 Total Iron Binding Capacity 256 g/dL Normal 250-450 Percent Saturation 30.5 % Normal 13.2-45.0 Laboratory test finding 01/06/2021 [facility] Ferritin 73 NG/ML Normal 8-252 2 Comprehensive Metabolic Profil 01/06/2021 [facility] Glucose, Fasting 109 mg/dL High 70-100 Blood [...] 1.2 Normal 1.2-2.2 CBC With Differential 01/06/2021 [facility] White Blood Count 9.9 10 Normal 4.0-10.0 [...] 36.0-66.0 Lymph % 27.1 % Normal 24.0-44.0 [place] % 6.4 % Normal 2.0-8.0 Eos % 1.5 % Normal 0.0-3.0 Baso % 0.3 % Normal 0.0-1.0 Immature Granulocyte % 0.4 % Normal 0-3.0 Nucleated Red Blood Cell % 0.0 % Normal 0-0 Neutrophils # 6.4 10 Normal 1.5-8.5 Lymph # 2.7 10 Normal 1.5-5.0 [place] # 0.6 10 Normal 0.0-0.8 Eos # 0.2 10 Normal 0.0-0.5 Baso # 0.0 10 Normal 0.0-0.2 Covid-19 11/20/2020 [facility] Sars-CoV-2, Tracey Not Detected Not Detected 4 Sars-CoV-2, Tracey 2 Day Tat Performed Laboratory test finding 11/17/2020 [facility] l Ferritin Krysta 63.5 ng/mL 3.0 - 105 5 Iron Binding Capacity 11/17/2020 [facility] Iron 58 g/dL 42 - 135 Uibc 173 g/dL 112 - 347 Tibc 231 g/dL Low 250 - 450 Iron Sat 25 % CBC W/Automated Diff 11/17/2020 [facility] CBC W/Automated Diff (SEE NOTE) 6 [...] 80.0 Lymph 34.6 % 25.0 - 40.0 [place] 7.5 % 3.0 - 8.0 Eos 2.8 % 0.0 - 7.0 Baso 0.4 % 0.0 - 2.5 %Ig 0.4 % High 0.0 - 0.0 %NRBC 0.0 % 0.0 - 0.0 #Neut 5.48 10^3/uL 2.00 - 6.90 #Lymph 3.49 10^3/uL High 0.60 - 3.40 #[place] 0.76 10^3/uL 0.00 - 0.90 #Eos 0.28 10^3/uL 0.00 - 0.70 #Baso 0.04 10^3/uL 0.00 - 0.20 #Ig 0.04 10^3/uL 0.00 - 0.10 #NRBC 0.00 10^3/uL 0.00 - 0.00 Manual Diff NOT INDICATED RBC Morph NOT INDICATED Laboratory test finding 11/17/2020 [facility] l Vitamin B12 Serum 204 pg/mL Low 232 - 1245 Vitamin D (25-Hydroxy) 19 NG/ML 7 Comprehensive Metabolic Panel 11/17/2020 [facility] Comprehensive Metabo (SEE NOTE) 8 [...] >60 mL/min 9 Laboratory test finding 11/09/2020 [facility] T4 - Free 1.27 ng/dL 0.93 - 1.70 TSH Highly Sensitive 0.34 uIU/mL Low 0.47 - 5.01 Inhouse-Influenza A&B Rna Prob 09/25/2020 In Office Influenza Virus A QL PCR negative Negative Influenza Virus B QL PCR negative Negative Laboratory test finding 09/25/2020 [facility] Coronavirus Covid-19 Not Detected Not Detected 10 Covid-19 09/03/2020 [facility] Sars-CoV-2, Tracey Not Detected Not Detected 11 Sars-CoV-2, Tracey 2 Day Tat Performed 1 This nucleic acid amplificat ion test was developed and its performance characteristics determined by [employer]. Nucleic acid amplification tests include RT-PCR and [...] (not detected) result in this assay. 2 note:<nlbl:[facility]_chang ed> 3 Units are mL/min/1.73 m2 Chronic Kidney Disease Staging per NKF: Stage I & II GFR >=60 Normal to Mildly Decreased Stage III GFR 30-59 Moderately Decreased Stage IV GFR 15-29 Severely Decreased Stage V GFR <15 Very Little GFR Left ESRD GFR <15 on TECHNOLOGY COACH 4 This nucleic acid amplificat ion test was developed and its performance characteristics determined by [employer]. Nucleic acid amplification tests include RT-PCR and [...] developed and its performance characteristics determined by [employer]. Nucleic acid amplification tests include RT-PCR and [...] developed and its performance characteristics determined by [employer]. Nucleic acid amplification tests include RT-PCR and [...] assay. Procedures Date Code Description Status 02/17/2021 22620 Office/Outpatient Established Lo w MDM 20-29 Min Completed 02/17/2021 64069 Office/Outpatient New Low MDM 30 -44 Minutes Completed 02/17/2021 01120 Admin Patient Focused Health Ris k Assessment Instrument Completed 02/17/2021 85432 Brief Emotional/Beha v Assessment W/ Scoring Doc Per Standard Inst Completed 02/10/2021 67602 Office/Outpatient Established Mo d MDM 30-39 Min Completed 01/29/2021 73052 Office Visit New Level 1 Complet ed 01/24/2021 65693 Office/Outpatient Established Lo w MDM 20-29 Min Completed 01/24/2021 35499 Pulse Oximetry Single Determinat ion Completed 11/17/2020 06048 Office/Outpatient Established Lo w MDM 20-29 Min Completed 11/09/2020 22723 Office/Outpatient Established Mo d MDM 30-39 Min Completed 10/06/2020 92125 Office/Outpatient Established Lo w MDM 20-29 Min Completed 10/03/2020 10437 Office/Outpatient Established Lo w MDM 20-29 Min Completed 09/25/2020 53861 Office/Outpatient Established Lo w MDM 20-29 Min Completed 09/12/2020 17749 Office Visit New Level 1 Complet ed [...] a, not intractable, without status migrainosus Juan Stroey MD 02/17/2021 E55.9 Vitamin D deficiency, unspecifie [...] current episod e mixed, unspecified Olivia Rowland [facility] 01/22/2021 F12.20 Cannabis dependence, uncomplicat ed Olivia Rowland [facility] 01/22/2021 F10.11 Alcohol abuse, in remission Armand Rowland [facility] 12/23/2020 F31.60 Bipolar disorder, current episod e mixed, unspecified Olivia Rowland [facility] 12/23/2020 F12.20 Cannabis dependence, uncomplicat ed Olivia Rowland [facility] 12/23/2020 F10.11 Alcohol abuse, in remission Armand Rowland [facility], [facility] 11/18/2020 F31.60 Bipolar disorder, current episod e mixed, unspecified Olivia Rowland [facility] 11/18/2020 F12.20 Cannabis dependence, uncomplicat ed Olivia Rowland [facility] 11/18/2020 F10.11 Alcohol abuse, in [...] M62.830 Muscle spasm of back Lamine Sullivan, MANAGER ANALYTICAL 10/03/2020 G43.009 Migraine without aur a, not intractable, without status migrainosus Eloise Cheema PA-C 09/25/2020 R05 Cough Beck Johnson , MANAGER ANALYTICAL 09/16/2020 F31.60 Bipolar disorder, current episod e [...]
--- OUTSIDE RECORDS SUMMARY | 2021-03-17 19:27 | CCD | Continuity of Care Document ---
Author Author Kimberley CHUNG Organization Unknown Address [address] [place] [address] Phone [phone] Care Team Providers Care Embossing Tool Setter Name Role Phone Juan Storey M.D. AUTM [phone] [facility] [address] [facility] AUTM [facility] 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 Vaccine [id number] Given 03/27/2018 Influenza (>= 6 Months) P.F. [...] Tat Performed Total Iron Binding Capacit 01/06/2021 [facility] Iron (Fe) 78 g/dL Normal 50-170 Total Iron Binding Capacity 256 g/dL Normal 250-450 Percent Saturation 30.5 % Normal 13.2-45.0 Laboratory test finding 01/06/2021 [facility] Ferritin 73 NG/ML Normal 8-252 2 Comprehensive Metabolic Profil 01/06/2021 [facility] [...] 36.0-66.0 Lymph % 27.1 % Normal 24.0-44.0 [place] % 6.4 % Normal 2.0-8.0 Eos % 1.5 % Normal 0.0-3.0 Baso % 0.3 % Normal 0.0-1.0 Immature Granulocyte % 0.4 % Normal 0-3.0 Nucleated Red Blood Cell % 0.0 % Normal 0-0 Neutrophils # 6.4 10 Normal 1.5-8.5 Lymph # 2.7 10 Normal 1.5-5.0 [place] # 0.6 10 Normal 0.0-0.8 Eos # 0.2 10 Normal 0.0-0.5 Baso # 0.0 10 Normal 0.0-0.2 Covid-19 11/20/2020 [facility] Sars-CoV-2, Tracey Not Detected Not Detected 4 Sars-CoV-2, Tracey 2 Day Tat Performed Laboratory test finding 11/17/2020 [facility] l Ferritin Krysta 63.5 ng/mL 3.0 [...] 80.0 Lymph 34.6 % 25.0 - 40.0 [place] 7.5 % 3.0 - 8.0 Eos 2.8 % 0.0 - 7.0 Baso 0.4 % 0.0 - 2.5 %Ig 0.4 % High 0.0 - 0.0 %NRBC 0.0 % 0.0 - 0.0 #Neut 5.48 10^3/uL 2.00 - 6.90 #Lymph 3.49 10^3/uL High 0.60 - 3.40 #[place] 0.76 10^3/uL 0.00 - 0.90 #Eos 0.28 10^3/uL 0.00 - 0.70 #Baso 0.04 10^3/uL 0.00 - 0.20 #Ig 0.04 10^3/uL 0.00 - 0.10 #NRBC 0.00 10^3/uL 0.00 - 0.00 Manual Diff NOT INDICATED RBC Morph NOT INDICATED Laboratory test finding 11/17/2020 [facility] l Vitamin B12 Serum 204 pg/mL Low 232 - 1245 Vitamin D (25-Hydroxy) 19 NG/ML 7 Comprehensive Metabolic Panel 11/17/2020 [facility] Comprehensive Metabo (SEE NOTE) 8 Sodium [...] >60 mL/min 9 Laboratory test finding 11/09/2020 [facility] T4 - Free 1.27 ng/dL 0.93 - 1.70 TSH Highly Sensitive 0.34 uIU/mL Low 0.47 - 5.01 Inhouse-Influenza A&B Rna Prob 09/25/2020 In Office Influenza Virus A QL PCR negative Negative Influenza Virus B QL PCR negative Negative Laboratory test finding 09/25/2020 [facility] Coronavirus Covid-19 Not Detected Not Detected 10 Covid-19 09/03/2020 [facility] Sars-CoV-2, Tracey Not Detected Not Detected 11 Sars-CoV-2, Tracey 2 Day Tat Performed 1 This nucleic acid amplificat ion test was developed and its performance characteristics determined by [employer]. Nucleic acid amplification tests include RT-PCR and [...] (not detected) result in this assay. 2 note:<nlbl:[facility]_chang ed> 3 Units are mL/min/1.73 m2 Chronic Kidney Disease Staging per NKF: Stage I & II GFR >=60 Normal to Mildly Decreased Stage III GFR 30-59 Moderately Decreased Stage IV GFR 15-29 Severely Decreased Stage V GFR <15 Very Little GFR Left ESRD GFR <15 on MEDIA PROFESSIONAL 4 This nucleic acid amplificat ion test was developed and its performance characteristics determined by [employer]. Nucleic acid amplification tests include RT-PCR and [...] developed and its performance characteristics determined by [employer]. Nucleic acid amplification tests include RT-PCR and [...] developed and its performance characteristics determined by [employer]. Nucleic acid amplification tests include RT-PCR and [...] assay. Procedures Date Code Description Status 02/17/2021 77165 Office/Outpatient Established Lo w MDM 20-29 Min Completed 02/17/2021 43210 Office/Outpatient New Low MDM 30 -44 Minutes Completed 02/17/2021 16186 Admin Patient Focused Health Ris k Assessment Instrument Completed 02/17/2021 80925 Brief Emotional/Beha v Assessment W/ Scoring Doc Per Standard Inst Completed 02/10/2021 43237 Office/Outpatient Established Mo d MDM 30-39 Min Completed 01/29/2021 23948 Office Visit New Level 1 Complet ed 01/24/2021 20538 Office/Outpatient Established Lo w MDM 20-29 Min Completed 01/24/2021 94935 Pulse Oximetry Single Determinat ion Completed 11/17/2020 75062 Office/Outpatient Established Lo w MDM 20-29 Min Completed 11/09/2020 85167 Office/Outpatient Established Mo d MDM 30-39 Min Completed 10/06/2020 15385 Office/Outpatient Established Lo w MDM 20-29 Min Completed 10/03/2020 57689 Office/Outpatient Established Lo w MDM 20-29 Min Completed 09/25/2020 62209 Office/Outpatient Established Lo w MDM 20-29 Min Completed 09/12/2020 73835 Office Visit New Level 1 Complet ed [...] current episod e mixed, unspecified Olivia Rowland [facility] 01/22/2021 F12.20 Cannabis dependence, uncomplicat ed Olivia Rowland [facility] 01/22/2021 F10.11 Alcohol abuse, in remission Armand Rowland [facility] 12/23/2020 F31.60 Bipolar disorder, current episod e mixed, unspecified Olivia Rowland [facility] 12/23/2020 F12.20 Cannabis dependence, uncomplicat ed Olivia Rowland [facility] 12/23/2020 F10.11 Alcohol abuse, in remission Armand Rowland [facility], [facility] 11/18/2020 F31.60 Bipolar disorder, current episod e mixed, unspecified Olivia Rowland [facility] 11/18/2020 F12.20 Cannabis dependence, uncomplicat ed Olivia Rowland [facility] 11/18/2020 F10.11 Alcohol abuse, in remission Armand Rowland [facility] 11/17/2020 G43.009 Migraine without aur a, not intractable, without status migrainosus Juan Storey MD 11/17/2020 E55.9 Vitamin D deficiency, unspecifie d Juan Storey MD 11/17/2020 J30.9 Allergic rhinitis, unspecified H abigail Storey MD 11/17/2020 D69.3 Immune thrombocytopenic purpura Juan tSorey MD 11/17/2020 E61.1 Iron deficiency Juan Storey [...] M62.830 Muscle spasm of back Lamine Sullivan, PLASMA PROCESSOR 10/03/2020 G43.009 Migraine without aur a, not intractable, without status migrainosus Eloise Cheema PA-C 09/25/2020 R05 Cough Beck Johnson , PLASMA PROCESSOR 09/16/2020 F31.60 Bipolar disorder, current episod e [...]
--- OUTSIDE RECORDS SUMMARY | 2021-03-17 19:27 | CCD | Continuity of Care Document ---
Author Author Kimberley STOREY M.D. Organization Unknown Address [address] [place] [address] Phone [phone] Care Team Providers Care Manager Dental Name Role Phone Juan Storey M.D. AUTM [phone] [facility] [address] [facility] AUTM [facility] AUTM [phone] [facility] AUTM Problems Active [...] Yon Cota 05/22/2020 Vitamin D (Ergocalciferol) 1.25mg (47904 Ut) Capsules 1 cap by mouth every [...] CPT Code Status Date Vaccine Lot # [id number] Given 02/24/2020 Influenza (>= 6 Months) P.F. Vaccine [id number] Given 03/27/2018 Influenza (>= 6 Months) P.F. [...] Patients Choice Z#Other Observations <pending> Covid-19 01/24/2021 [facility] Sars-CoV-2, Tracey Not Detected Not Detected 1 Sars-CoV-2, Tracey 2 Day Tat Performed Total Iron Binding Capacit 01/06/2021 [facility] Iron (Fe) 78 g/dL Normal 50-170 Total Iron Binding Capacity 256 g/dL Normal 250-450 Percent Saturation 30.5 % Normal 13.2-45.0 Laboratory test finding 01/06/2021 [facility] Ferritin 73 NG/ML Normal 8-252 2 Comprehensive Metabolic Profil 01/06/2021 [facility] Glucose, Fasting 109 mg/dL High [...] 1.2 Normal 1.2-2.2 CBC With Differential 01/06/2021 [facility] White Blood Count 9.9 10 [...] 36.0-66.0 Lymph % 27.1 % Normal 24.0-44.0 [place] % 6.4 % Normal 2.0-8.0 Eos % 1.5 % Normal 0.0-3.0 Baso % 0.3 % Normal 0.0-1.0 Immature Granulocyte % 0.4 % Normal 0-3.0 Nucleated Red Blood Cell % 0.0 % Normal 0-0 Neutrophils # 6.4 10 Normal 1.5-8.5 Lymph # 2.7 10 Normal 1.5-5.0 [place] # 0.6 10 Normal 0.0-0.8 Eos # 0.2 10 Normal 0.0-0.5 Baso # 0.0 10 Normal 0.0-0.2 Covid-19 11/20/2020 [facility] Sars-CoV-2, Tracey Not Detected Not Detected 4 Sars-CoV-2, Tracey 2 Day Tat Performed Laboratory test finding 11/17/2020 [facility] l Ferritin Krysta 63.5 ng/mL 3.0 - 105 5 Iron Binding Capacity 11/17/2020 [facility] Iron 58 g/dL 42 - 135 Uibc 173 g/dL 112 - 347 Tibc 231 g/dL Low 250 - 450 Iron Sat 25 % CBC W/Automated Diff 11/17/2020 [facility] CBC W/Automated Diff (SEE NOTE) 6 [...] 80.0 Lymph 34.6 % 25.0 - 40.0 [place] 7.5 % 3.0 - 8.0 Eos 2.8 % 0.0 - 7.0 Baso 0.4 % 0.0 - 2.5 %Ig 0.4 % High 0.0 - 0.0 %NRBC 0.0 % 0.0 - 0.0 #Neut 5.48 10^3/uL 2.00 - 6.90 #Lymph 3.49 10^3/uL High 0.60 - 3.40 #[place] 0.76 10^3/uL 0.00 - 0.90 #Eos 0.28 10^3/uL 0.00 - 0.70 #Baso 0.04 10^3/uL 0.00 - 0.20 #Ig 0.04 10^3/uL 0.00 - 0.10 #NRBC 0.00 10^3/uL 0.00 - 0.00 Manual Diff NOT INDICATED RBC Morph NOT INDICATED Laboratory test finding 11/17/2020 [facility] l Vitamin B12 Serum 204 pg/mL Low 232 - 1245 Vitamin D (25-Hydroxy) 19 NG/ML 7 Comprehensive Metabolic Panel 11/17/2020 [facility] Comprehensive Metabo (SEE NOTE) 8 [...] >60 mL/min 9 Laboratory test finding 11/09/2020 [facility] T4 - Free 1.27 ng/dL 0.93 - 1.70 TSH Highly Sensitive 0.34 uIU/mL Low 0.47 - 5.01 Inhouse-Influenza A&B Rna Prob 09/25/2020 In Office Influenza Virus A QL PCR negative Negative Influenza Virus B QL PCR negative Negative Laboratory test finding 09/25/2020 [facility] Coronavirus Covid-19 Not Detected Not Detected 10 Covid-19 09/03/2020 [facility] Sars-CoV-2, Tracey Not Detected Not Detected 11 Sars-CoV-2, Tracey 2 Day Tat Performed 1 This nucleic acid amplificat ion test was developed and its performance characteristics determined by [email or web address]. Nucleic acid amplification tests include RT-PCR and [...] (not detected) result in this assay. 2 note:<nlbl:[facility]_chang ed> 3 Units are mL/min/1.73 m2 Chronic Kidney Disease Staging per NKF: Stage I & II GFR >=60 Normal to Mildly Decreased Stage III GFR 30-59 Moderately Decreased Stage IV GFR 15-29 Severely Decreased Stage V GFR <15 Very Little GFR Left ESRD GFR <15 on REAL ESTATE OPERATIONS MANAGER 4 This nucleic acid amplificat ion test was developed and its performance characteristics determined by [email or web address]. Nucleic acid amplification tests include RT-PCR and [...] developed and its performance characteristics determined by [email or web address]. Nucleic acid amplification tests include RT-PCR and [...] developed and its performance characteristics determined by [email or web address]. Nucleic acid amplification tests include RT-PCR and [...] assay. Procedures Date Code Description Status 02/17/2021 05913 Office/Outpatient Established Lo w MDM 20-29 Min Completed 02/17/2021 00442 Office/Outpatient New Low MDM 30 -44 Minutes Completed 02/17/2021 51453 Admin Patient Focused Health Ris k Assessment Instrument Completed 02/17/2021 06027 Brief Emotional/Beha v Assessment W/ Scoring Doc Per Standard Inst Completed 02/10/2021 21749 Office/Outpatient Established Mo d MDM 30-39 Min Completed 01/29/2021 07123 Office Visit New Level 1 Complet ed 01/24/2021 44876 Office/Outpatient Established Lo w MDM 20-29 Min Completed 01/24/2021 37219 Pulse Oximetry Single Determinat ion Completed 11/17/2020 68552 Office/Outpatient Established Lo w MDM 20-29 Min Completed 11/09/2020 97737 Office/Outpatient Established Mo d MDM 30-39 Min Completed 10/06/2020 74802 Office/Outpatient Established Lo w MDM 20-29 Min Completed 10/03/2020 13811 Office/Outpatient Established Lo w MDM 20-29 Min Completed 09/25/2020 37031 Office/Outpatient Established Lo w MDM 20-29 Min Completed 09/12/2020 27373 Office Visit New Level 1 Complet ed [...] current episod e mixed, unspecified Olivia Rowland [facility] 01/22/2021 F12.20 Cannabis dependence, uncomplicat ed Olivia Rowland [facility] 01/22/2021 F10.11 Alcohol abuse, in remission Armand Rowland [facility] 12/23/2020 F31.60 Bipolar disorder, current episod e mixed, unspecified Olivia Rowland [facility] 12/23/2020 F12.20 Cannabis dependence, uncomplicat ed Olivia Rowland [facility] 12/23/2020 F10.11 Alcohol abuse, in remission Armand Rowland [facility], [facility] 11/18/2020 F31.60 Bipolar disorder, current episod e mixed, unspecified Olivia Rowland [facility] 11/18/2020 F12.20 Cannabis dependence, uncomplicat ed Olivia Rowland [facility] 11/18/2020 F10.11 Alcohol abuse, [...] M62.830 Muscle spasm of back Lamine Sullivan, DRAWER WAXER 10/03/2020 G43.009 Migraine without aur a, not intractable, without status migrainosus Eloise Cheema PA-C 09/25/2020 R05 Cough Beck Johnson , DRAWER WAXER 09/16/2020 F31.60 Bipolar disorder, current episod e [...]
--- OUTSIDE RECORDS SUMMARY | 2021-03-17 19:27 | CCD | Continuity of Care Document ---
Author Author Kimberley STOREY M.D. Organization Unknown Address [address] [place] [address] Phone [phone] Care Team Providers Care Line Installer Name Role Phone Juan Storey M.D. AUTM [phone] [facility] [address] [facility] AUTM [facility] AUTM [facility] AUTM [phone] Problems Active Problems Provider Date Migraine with [...] LCSW Onse t: 04/01/2020 Cobalamin deficiency Juan Storye MD Onset: 02/17/2021 Allergic rhinitis Juan Storey [...] Yon Cota 05/22/2020 Vitamin D (Ergocalciferol) 1.25mg (98253 Ut) Capsules 1 cap by mouth every [...] CPT Code Status Date Vaccine Lot # [id number] Given 02/24/2020 Influenza (>= 6 Months) P.F. Vaccine [id number] Given 03/27/2018 Influenza (>= 6 Months) P.F. [...] Patients Choice Z#Other Observations <pending> Covid-19 01/24/2021 [facility] Sars-CoV-2, Tracey Not Detected Not Detected 1 Sars-CoV-2, Tracey 2 Day Tat Performed Total Iron Binding Capacit 01/06/2021 Located within [facility] Iron (Fe) 78 g/dL Normal 50-170 Total Iron Binding Capacity 256 g/dL Normal 250-450 Percent Saturation 30.5 % Normal 13.2-45.0 Laboratory test finding 01/06/2021 [facility]ated [facility] Ferritin 73 NG/ML Normal 8-252 2 Comprehensive Metabolic Profil 01/06/2021 [facility]ated [facility] Glucose, Fasting 109 mg/dL High [...] 1.2 Normal 1.2-2.2 CBC With Differential 01/06/2021 [facility]ated within [facility] White Blood Count 9.9 10 [...] 36.0-66.0 Lymph % 27.1 % Normal 24.0-44.0 Oliver % 6.4 % Normal 2.0-8.0 Eos % 1.5 % Normal 0.0-3.0 Baso % 0.3 % Normal 0.0-1.0 Immature Granulocyte % 0.4 % Normal 0-3.0 Nucleated Red Blood Cell % 0.0 % Normal 0-0 Neutrophils # 6.4 10 Normal 1.5-8.5 Lymph # 2.7 10 Normal 1.5-5.0 Oliver # 0.6 10 Normal 0.0-0.8 Eos # 0.2 10 Normal 0.0-0.5 Baso # 0.0 10 Normal 0.0-0.2 Covid-19 11/20/2020 [facility] Sars-CoV-2, Tracey Not Detected Not Detected 4 Sars-CoV-2, Tracey 2 Day Tat Performed Laboratory test finding 11/17/2020 [facility] Ferritin Krysta 63.5 ng/mL 3.0 - 105 5 Iron Binding Capacity 11/17/2020 [facility] Iron 58 g/dL 42 - 135 Uibc 173 g/dL 112 - 347 Tibc 231 g/dL Low 250 - 450 Iron Sat 25 % CBC W/Automated Diff 11/17/2020 [facility] CBC W/Automated Diff (SEE NOTE) 6 [...] 80.0 Lymph 34.6 % 25.0 - 40.0 Oliver 7.5 % 3.0 - 8.0 Eos 2.8 % 0.0 - 7.0 Baso 0.4 % 0.0 - 2.5 %Ig 0.4 % High 0.0 - 0.0 %NRBC 0.0 % 0.0 - 0.0 #Neut 5.48 10^3/uL 2.00 - 6.90 #Lymph 3.49 10^3/uL High 0.60 - 3.40 #Oliver 0.76 10^3/uL 0.00 - 0.90 #Eos 0.28 10^3/uL 0.00 - 0.70 #Baso 0.04 10^3/uL 0.00 - 0.20 #Ig 0.04 10^3/uL 0.00 - 0.10 #NRBC 0.00 10^3/uL 0.00 - 0.00 Manual Diff NOT INDICATED RBC Morph NOT INDICATED Laboratory test finding 11/17/2020 [facility] l Vitamin B12 Serum 204 pg/mL Low [...] >60 mL/min 9 Laboratory test finding 11/09/2020 [facility] T4 - Free 1.27 ng/dL 0.93 - 1.70 TSH Highly Sensitive 0.34 uIU/mL Low 0.47 - 5.01 Inhouse-Influenza A&B Rna Prob 09/25/2020 In Office Influenza Virus A QL PCR negative Negative Influenza Virus B QL PCR negative Negative Laboratory test finding 09/25/2020 [facility] Coronavirus Covid-19 Not Detected Not Detected 10 Covid-19 09/03/2020 [facility] Sars-CoV-2, Tracey Not Detected Not Detected 11 Sars-CoV-2, Tracey 2 Day Tat Performed 1 This nucleic acid amplificat ion test was developed and its performance characteristics determined by [employer]. Nucleic acid amplification tests include RT-PCR and [...] (not detected) result in this assay. 2 note:<nlbl:[facility]_chang ed> 3 Units are mL/min/1.73 m2 Chronic Kidney Disease Staging per NKF: Stage I & II GFR >=60 Normal to Mildly Decreased Stage III GFR 30-59 Moderately Decreased Stage IV GFR 15-29 Severely Decreased Stage V GFR <15 Very Little GFR Left ESRD GFR <15 on INSURANCE AND BENEFITS CLERK 4 This nucleic acid amplificat ion test was developed and its performance characteristics determined by [employer]. Nucleic acid amplification tests include RT-PCR and [...] developed and its performance characteristics determined by [employer]. Nucleic acid amplification tests include RT-PCR and [...] developed and its performance characteristics determined by [employer]. Nucleic acid amplification tests include RT-PCR and [...] assay. Procedures Date Code Description Status 02/17/2021 10811 Office/Outpatient Established Lo w MDM 20-29 Min Completed 02/17/2021 43623 Office/Outpatient New Low MDM 30 -44 Minutes Completed 02/17/2021 18929 Admin Patient Focused Health Ris k Assessment Instrument Completed 02/17/2021 59440 Brief Emotional/Beha v Assessment W/ Scoring Doc Per Standard Inst Completed 02/10/2021 19672 Office/Outpatient Established Mo d MDM 30-39 Min Completed 01/29/2021 68867 Office Visit New Level 1 Complet ed 01/24/2021 43062 Office/Outpatient Established Lo w MDM 20-29 Min Completed 01/24/2021 93013 Pulse Oximetry Single Determinat ion Completed 11/17/2020 14903 Office/Outpatient Established Lo w MDM 20-29 Min Completed 11/09/2020 98159 Office/Outpatient Established Mo d MDM 30-39 Min Completed 10/06/2020 44357 Office/Outpatient Established Lo w MDM 20-29 Min Completed 10/03/2020 55885 Office/Outpatient Established Lo w MDM 20-29 Min Completed 09/25/2020 50266 Office/Outpatient Established Lo w MDM 20-29 Min Completed 09/12/2020 74349 Office Visit New Level 1 Complet ed [...] e mixed, unspecified Olivia Rowland [facility] 01/22/2021 F12.20 Cannabis dependence, uncomplicat ed Olivia Rowland [facility] 01/22/2021 F10.11 Alcohol abuse, in remission Armand Rowland [facility] 12/23/2020 F31.60 Bipolar disorder, current episod e mixed, unspecified Olivia Rowland [facility] 12/23/2020 F12.20 Cannabis dependence, uncomplicat ed Olivia Rowland [facility] 12/23/2020 F10.11 Alcohol abuse, in remission Armand Rowland LM, [facility] 11/18/2020 F31.60 Bipolar disorder, current episod e mixed, unspecified Olivia Rowland [facility] 11/18/2020 F12.20 Cannabis dependence, uncomplicat ed Olivia Rowland [facility] 11/18/2020 F10.11 Alcohol abuse, in remission [...] M62.830 Muscle spasm of back Lamine Sullivan, WELFARE CENTRE MANAGER 10/03/2020 G43.009 Migraine without aur a, not intractable, without status migrainosus Eloise Cheema PA-C 09/25/2020 R05 Cough Beck Johnson , WELFARE CENTRE MANAGER 09/16/2020 F31.60 Bipolar disorder, current episod [...]
--- OUTSIDE RECORDS SUMMARY | 2021-03-17 19:27 | CCD ---
Continuity of Care Document (CCD) Created on: 02/17/2021 Kimberley Horta External Reference #: [id number] : [id number] Sex: Female Author Author Kimberley STOREY M.D. Organization Unknown Address [address] [place] [id number] Phone [phone] Care Team Providers Care Receipt And Report Clerk Name Role Phone Juan Storey M.D. AUTM [phone] [facility] [address] [facility] AUTM [facility] AUTM [phone] [facility] AUTM [phone] Problems Active Problems Provider Date Migraine with [...] Yon Cota 05/22/2020 Vitamin D (Ergocalciferol) 1.25mg (18751 Ut) Capsules 1 cap by mouth every [...] CPT Code Status Date Vaccine Lot # 33977 Given 02/24/2020 Influenza (>= 6 Months) P.F. Vaccine 9HT27 [id number] Given 03/27/2018 Influenza (>= 6 Months) P.F. [...] Choice Z#Other Observations <pending> Covid-19 01/24/2021 [facility] Sars-CoV-2, Tracey Not Detected Not Detected 1 Sars-CoV-2, Tracey 2 Day Tat Performed Total Iron Binding Capacit 01/06/2021 [facility] Iron (Fe) 78 g/dL Normal 50-170 Total Iron Binding Capacity 256 g/dL Normal 250-450 Percent Saturation 30.5 % Normal 13.2-45.0 Laboratory test finding 01/06/2021 [facility] Ferritin 73 NG/ML Normal 8-252 2 Comprehensive Metabolic Profil 01/06/2021 [facility] Glucose, Fasting 109 mg/dL High [...] 1.2 Normal 1.2-2.2 CBC With Differential 01/06/2021 [facility] White Blood Count 9.9 10 [...] 36.0-66.0 Lymph % 27.1 % Normal 24.0-44.0 [place] % 6.4 % Normal 2.0-8.0 Eos % 1.5 % Normal 0.0-3.0 Baso % 0.3 % Normal 0.0-1.0 Immature Granulocyte % 0.4 % Normal 0-3.0 Nucleated Red Blood Cell % 0.0 % Normal 0-0 Neutrophils # 6.4 10 Normal 1.5-8.5 Lymph # 2.7 10 Normal 1.5-5.0 [place] # 0.6 10 Normal 0.0-0.8 Eos # 0.2 10 Normal 0.0-0.5 Baso # 0.0 10 Normal 0.0-0.2 Covid-19 11/20/2020 [facility] Sars-CoV-2, Tracey Not Detected Not Detected 4 Sars-CoV-2, Tracey 2 Day Tat Performed Laboratory test finding 11/17/2020 [facility] l Ferritin Krysta 63.5 ng/mL 3.0 - 105 5 Iron Binding Capacity 11/17/2020 [facility] Iron 58 g/dL 42 - 135 Uibc 173 g/dL 112 - 347 Tibc 231 g/dL Low 250 - 450 Iron Sat 25 % CBC W/Automated Diff 11/17/2020 [facility] CBC W/Automated Diff (SEE NOTE) 6 [...] 80.0 Lymph 34.6 % 25.0 - 40.0 [place] 7.5 % 3.0 - 8.0 Eos 2.8 % 0.0 - 7.0 Baso 0.4 % 0.0 - 2.5 %Ig 0.4 % High 0.0 - 0.0 %NRBC 0.0 % 0.0 - 0.0 #Neut 5.48 10^3/uL 2.00 - 6.90 #Lymph 3.49 10^3/uL High 0.60 - 3.40 #[place] 0.76 10^3/uL 0.00 - 0.90 #Eos 0.28 10^3/uL 0.00 - 0.70 #Baso 0.04 10^3/uL 0.00 - 0.20 #Ig 0.04 10^3/uL 0.00 - 0.10 #NRBC 0.00 10^3/uL 0.00 - 0.00 Manual Diff NOT INDICATED RBC Morph NOT INDICATED Laboratory test finding 11/17/2020 [facility] l Vitamin B12 Serum 204 pg/mL Low 232 - 1245 Vitamin D (25-Hydroxy) 19 NG/ML 7 Comprehensive Metabolic Panel 11/17/2020 [facility] ospital Comprehensive Metabo (SEE NOTE) 8 [...] >60 mL/min 9 Laboratory test finding 11/09/2020 [facility] T4 - Free 1.27 ng/dL 0.93 - 1.70 TSH Highly Sensitive 0.34 uIU/mL Low 0.47 - 5.01 Inhouse-Influenza A&B Rna Prob 09/25/2020 In Office Influenza Virus A QL PCR negative Negative Influenza Virus B QL PCR negative Negative Laboratory test finding 09/25/2020 [facility] Coronavirus Covid-19 Not Detected Not Detected 10 Covid-19 09/03/2020 [facility] Sars-CoV-2, Tracey Not Detected Not Detected 11 Sars-CoV-2, Tracey 2 Day Tat Performed 1 This nucleic acid amplificat ion test was developed and its performance characteristics determined by [employer]. Nucleic acid amplification tests include RT-PCR and [...] (not detected) result in this assay. 2 note:<nlbl:[facility]_chang ed> 3 Units are mL/min/1.73 m2 Chronic Kidney Disease Staging per NKF: Stage I & II GFR >=60 Normal to Mildly Decreased Stage III GFR 30-59 Moderately Decreased Stage IV GFR 15-29 Severely Decreased Stage V GFR <15 Very Little GFR Left ESRD GFR <15 on RN MEDICAL INPATIENT SERVICES 4 This nucleic acid amplificat ion test was developed and its performance characteristics determined by [employer]. Nucleic acid amplification tests include RT-PCR and [...] developed and its performance characteristics determined by [employer]. Nucleic acid amplification tests include RT-PCR and [...] developed and its performance characteristics determined by [employer]. Nucleic acid amplification tests include RT-PCR and [...] assay. Procedures Date Code Description Status 02/17/2021 75750 Office/Outpatient Established Lo w MDM 20-29 Min Completed 02/17/2021 59281 Office/Outpatient New Low MDM 30 -44 Minutes Completed 02/17/2021 69880 Admin Patient Focused Health Ris k Assessment Instrument Completed 02/17/2021 07611 Brief Emotional/Beha v Assessment W/ Scoring Doc Per Standard Inst Completed 02/10/2021 06952 Office/Outpatient Established Mo d MDM 30-39 Min Completed 01/29/2021 74828 Office Visit New Level 1 Complet ed 01/24/2021 92678 Office/Outpatient Established Lo w MDM 20-29 Min Completed 01/24/2021 87703 Pulse Oximetry Single Determinat ion Completed 11/17/2020 48689 Office/Outpatient Established Lo w MDM 20-29 Min Completed 11/09/2020 74764 Office/Outpatient Established Mo d MDM 30-39 Min Completed 10/06/2020 84961 Office/Outpatient Established Lo w MDM 20-29 Min Completed 10/03/2020 48290 Office/Outpatient Established Lo w MDM 20-29 Min Completed 09/25/2020 75065 Office/Outpatient Established Lo w MDM 20-29 Min Completed 09/12/2020 18071 Office Visit New Level 1 Complet ed [...] current episod e mixed, unspecified Olivia Rowland [facility] 01/22/2021 F12.20 Cannabis dependence, uncomplicat ed Olivia Rowland [facility] 01/22/2021 F10.11 Alcohol abuse, in remission Armand Rowland [facility] 12/23/2020 F31.60 Bipolar disorder, current episod e mixed, unspecified Olivia Rowland [facility] 12/23/2020 F12.20 Cannabis dependence, uncomplicat ed Olivia Rowland [facility] 12/23/2020 F10.11 Alcohol abuse, in remission Armand Rowland LM, [facility] 11/18/2020 F31.60 Bipolar disorder, current episod e mixed, unspecified Olivia Rowland [facility] 11/18/2020 F12.20 Cannabis dependence, uncomplicat ed Olivia Rowland [facility] 11/18/2020 F10.11 Alcohol abuse, [...] M62.830 Muscle spasm of back Lamine Sullivan, INGREDIENT MIXER 10/03/2020 G43.009 Migraine without aur a, not intractable, without status migrainosus Eloise Cheema PA-C 09/25/2020 R05 Cough Beck Johnson , INGREDIENT MIXER 09/16/2020 F31.60 Bipolar disorder, current episod e [...]
--- OUTSIDE RECORDS SUMMARY | 2021-03-17 19:27 | CCD | Continuity of Care Document ---
Author Author Kimberley CHUNG Organization Unknown Address [address] [place] [address] Phone [phone] Care Team Providers Care Event Mgr Name Role Phone Juan Storey M.D. AUTM [phone] [facility] [address] [facility] AUTM [facility] AUTM [facility] AUTM [phone] Problems Active Problems Provider Date Migraine with [...] Yon Cota 05/22/2020 Vitamin D (Ergocalciferol) 1.25mg (51823 Ut) Capsules 1 cap by mouth every [...] CPT Code Status Date Vaccine Lot # [id number] Given 02/24/2020 Influenza (>= 6 Months) P.F. Vaccine [id number] Given 03/27/2018 Influenza (>= 6 Months) P.F. [...] Patients Choice Z#Other Observations <pending> Covid-19 01/24/2021 [facility] Sars-CoV-2, Tracey Not Detected Not Detected 1 Sars-CoV-2, Tracey 2 Day Tat Performed Total Iron Binding Capacit 01/06/2021 [facility] Iron (Fe) 78 g/dL Normal 50-170 Total Iron Binding Capacity 256 g/dL Normal 250-450 Percent Saturation 30.5 % Normal 13.2-45.0 Laboratory test finding 01/06/2021 [facility] Ferritin 73 NG/ML Normal 8-252 2 Comprehensive Metabolic Profil 01/06/2021 [facility] Glucose, Fasting 109 mg/dL High 70-100 Blood [...] 1.2 Normal 1.2-2.2 CBC With Differential 01/06/2021 [facility] White Blood Count 9.9 10 Normal 4.0-10.0 [...] 36.0-66.0 Lymph % 27.1 % Normal 24.0-44.0 [place] % 6.4 % Normal 2.0-8.0 Eos % 1.5 % Normal 0.0-3.0 Baso % 0.3 % Normal 0.0-1.0 Immature Granulocyte % 0.4 % Normal 0-3.0 Nucleated Red Blood Cell % 0.0 % Normal 0-0 Neutrophils # 6.4 10 Normal 1.5-8.5 Lymph # 2.7 10 Normal 1.5-5.0 [place] # 0.6 10 Normal 0.0-0.8 Eos # 0.2 10 Normal 0.0-0.5 Baso # 0.0 10 Normal 0.0-0.2 Covid-19 11/20/2020 [facility] Sars-CoV-2, Tracey Not Detected Not Detected 4 Sars-CoV-2, Tracey 2 Day Tat Performed Laboratory test finding 11/17/2020 [facility] l Ferritin Krysta 63.5 ng/mL 3.0 - 105 5 Iron Binding Capacity 11/17/2020 [facility] Iron 58 g/dL 42 - 135 Uibc 173 g/dL 112 - 347 Tibc 231 g/dL Low 250 - 450 Iron Sat 25 % CBC W/Automated Diff 11/17/2020 [facility] CBC W/Automated Diff (SEE NOTE) 6 [...] 80.0 Lymph 34.6 % 25.0 - 40.0 [place] 7.5 % 3.0 - 8.0 Eos 2.8 % 0.0 - 7.0 Baso 0.4 % 0.0 - 2.5 %Ig 0.4 % High 0.0 - 0.0 %NRBC 0.0 % 0.0 - 0.0 #Neut 5.48 10^3/uL 2.00 - 6.90 #Lymph 3.49 10^3/uL High 0.60 - 3.40 #[place] 0.76 10^3/uL 0.00 - 0.90 #Eos 0.28 10^3/uL 0.00 - 0.70 #Baso 0.04 10^3/uL 0.00 - 0.20 #Ig 0.04 10^3/uL 0.00 - 0.10 #NRBC 0.00 10^3/uL 0.00 - 0.00 Manual Diff NOT INDICATED RBC Morph NOT INDICATED Laboratory test finding 11/17/2020 [facility] l Vitamin B12 Serum 204 pg/mL Low 232 - 1245 Vitamin D (25-Hydroxy) 19 NG/ML 7 Comprehensive Metabolic Panel 11/17/2020 [facility] ospital Comprehensive Metabo (SEE NOTE) 8 [...] >60 mL/min 9 Laboratory test finding 11/09/2020 [facility] T4 - Free 1.27 ng/dL 0.93 - 1.70 TSH Highly Sensitive 0.34 uIU/mL Low 0.47 - 5.01 Inhouse-Influenza A&B Rna Prob 09/25/2020 In Office Influenza Virus A QL PCR negative Negative Influenza Virus B QL PCR negative Negative Laboratory test finding 09/25/2020 [facility] Coronavirus Covid-19 Not Detected Not Detected 10 Covid-19 09/03/2020 [facility] Sars-CoV-2, Tracey Not Detected Not Detected 11 Sars-CoV-2, Tracey 2 Day Tat Performed 1 This nucleic acid amplificat ion test was developed and its performance characteristics determined by [employer]. Nucleic acid amplification tests include RT-PCR and [...] (not detected) result in this assay. 2 note:<nlbl:[facility]_chang ed> 3 Units are mL/min/1.73 m2 Chronic Kidney Disease Staging per NKF: Stage I & II GFR >=60 Normal to Mildly Decreased Stage III GFR 30-59 Moderately Decreased Stage IV GFR 15-29 Severely Decreased Stage V GFR <15 Very Little GFR Left ESRD GFR <15 on BOILER FIREMAN 4 This nucleic acid amplificat ion test was developed and its performance characteristics determined by [employer]. Nucleic acid amplification tests include RT-PCR and [...] developed and its performance characteristics determined by [employer]. Nucleic acid amplification tests include RT-PCR and [...] developed and its performance characteristics determined by [employer]. Nucleic acid amplification tests include RT-PCR and [...] assay. Procedures Date Code Description Status 02/17/2021 58237 Office/Outpatient Established Lo w MDM 20-29 Min Completed 02/17/2021 19748 Office/Outpatient New Low MDM 30 -44 Minutes Completed 02/17/2021 74604 Admin Patient Focused Health Ris k Assessment Instrument Completed 02/17/2021 10428 Brief Emotional/Beha v Assessment W/ Scoring Doc Per Standard Inst Completed 02/10/2021 01977 Office/Outpatient Established Mo d MDM 30-39 Min Completed 01/29/2021 19914 Office Visit New Level 1 Complet ed 01/24/2021 02102 Office/Outpatient Established Lo w MDM 20-29 Min Completed 01/24/2021 10747 Pulse Oximetry Single Determinat ion Completed 11/17/2020 11480 Office/Outpatient Established Lo w MDM 20-29 Min Completed 11/09/2020 55849 Office/Outpatient Established Mo d MDM 30-39 Min Completed 10/06/2020 41647 Office/Outpatient Established Lo w MDM 20-29 Min Completed 10/03/2020 43494 Office/Outpatient Established Lo w MDM 20-29 Min Completed 09/25/2020 20663 Office/Outpatient Established Lo w MDM 20-29 Min Completed 09/12/2020 67917 Office Visit New Level 1 Complet ed [...] current episod e mixed, unspecified Olivia Rowland [facility] 01/22/2021 F12.20 Cannabis dependence, uncomplicat ed Olivia Rowland [facility] 01/22/2021 F10.11 Alcohol abuse, in remission Armand Rowland [facility] 12/23/2020 F31.60 Bipolar disorder, current episod e mixed, unspecified Olivia Rowland [facility] 12/23/2020 F12.20 Cannabis dependence, uncomplicat ed Olivia Rowland [facility] 12/23/2020 F10.11 Alcohol abuse, in remission Armand Rowland LM, [facility] 11/18/2020 F31.60 Bipolar disorder, current episod e mixed, unspecified Olivia Rowland [facility] 11/18/2020 F12.20 Cannabis dependence, uncomplicat ed Olivia Rowland [facility] 11/18/2020 F10.11 Alcohol abuse, in remission [...] Muscle spasm of back Lamine Sullivan, SENIOR INFORMATION SECURITY ARCHITECT 10/03/2020 G43.009 Migraine without aur a, not intractable, without status migrainosus Eloise Cheema PA-C 09/25/2020 R05 Cough Beck Johnson , SENIOR INFORMATION SECURITY ARCHITECT 09/16/2020 F31.60 Bipolar disorder, current episod e [...]
--- OUTSIDE RECORDS SUMMARY | 2021-03-17 19:29 | CCD ---
Author Author [facility] Organization [facility] Address Unknown Phone Unavailable Support Name Relationship Address Phone Gómez Jeanne CORNELL Next Of Kin [address] [place], [place] [id number] Maru Hercules Next Of Kin Unknown Unavailable MCDEVANSMI Next Of Kin [address] [place] [address] MCDPUL Next Of Kin [address] [facility] [address] [place] [address] UNK Next Of Kin Unknown Unavailable MCDONALDS Next Of Kin [address] [place] [address] ALEX [place] [phone] DOROTEO AC Next Of Kin [address] [place] [address] AlbertJeanne rodriguez DDS Next Of Kin [address] [place] [phone] JACKIE ESPINOSA Next Of Kin [address] [facility] [address] [place] [address] KT'Thomas Next Of Kin [place] [address] [place] [address] WU AC Next Of Kin [address] [place] [address] KMART Next Of Kin [address] [place] [address] SALMONRUAruna Next Of Kin [address] [place] [address] ST Next Of Kin Unknown Unavailable Valerie RODRIGUEZ Next Of Kin [address] [place] [address] UNEMPLOYED Next Of Kin [address] [place] [address] UE Next Of Kin Unknown Unavailable MARU HERCULES Next Of Kin [address] [place] [address] DOREENDEBORAH CORNELIUS Next Of Kin [address] [place] [address] Maru Hercules ECON [address] [place] [address] Unavailable Care Team Providers Care Bleach Liquor Maker Name Role Phone NERY, F GODWIN DO Unavailable Unavailable NERY, F GODWIN DO Unavailable Unavailable NERY, F GODWIN DO Unavailable Unavailable NERY, F GODWIN DO Unavailable Unavailable NERY, F GODWIN DO Unavailable Unavailable NERY, F GODWIN DO Unavailable Unavailable NERY, F GODWIN DO Unavailable Unavailable NERY, F GODWIN DO Unavailable Unavailable NERY, F GODWIN DO Unavailable Unavailable NERY, F GODWIN DO Unavailable Unavailable NERY, F GODWIN DO Unavailable Unavailable NERY, F GODWIN DO Unavailable Unavailable NERY, F GODWIN DO Unavailable Unavailable NERY, F GODWIN DO Unavailable Unavailable NERY, F GODWIN DO Unavailable Unavailable NERY, F GODWIN DO Unavailable Unavailable NERY, F GODWIN DO Unavailable Unavailable NERY, F GODWIN DO Unavailable Unavailable NERY, F GODWIN DO Unavailable Unavailable NERY, F GODWIN DO Unavailable Unavailable NERY, F GODWIN DO Unavailable Unavailable NERY, F GODWIN DO Unavailable Unavailable NERY, F GODWIN DO Unavailable Unavailable NERY, F GODWIN DO Unavailable Unavailable NERY, F GODWIN DO Unavailable Unavailable NERY, F GODWIN DO Unavailable Unavailable NERY, F GODWIN DO Unavailable Unavailable NERY, F GODWIN DO Unavailable Unavailable NERY, F GODWIN DO Unavailable Unavailable NERY, F GODWIN DO Unavailable Unavailable NERY, F GODWIN DO Unavailable Unavailable NERY, F GODWIN DO Unavailable Unavailable NERY, F GODWIN DO Unavailable Unavailable NERY, F GODWIN DO Unavailable Unavailable MYA SAGASTUME MD Unavailable Unavailable MYA SAGASTUME MD Unavailable Unavailable MYA SAGASTUME MD Unavailable Unavailable MYA SAGASTUME MD Unavailable Unavailable MYA SAGASTUME MD Unavailable Unavailable MYA SAGASTUME MD Unavailable Unavailable MYA SAGASTUME MD Unavailable Unavailable MYA SAGASTUME MD Unavailable Unavailable MYA SAGASTUME MD Unavailable Unavailable MYA SAGASTUME MD Unavailable Unavailable MYA SAGASTUME MD Unavailable Unavailable MYA SAGASTUME MD Unavailable Unavailable MYA SAGASTUME MD Unavailable Unavailable SAGASTUME, MYA MD Unavailable Unavailable SAGASTUME, MYA MD Unavailable Unavailable SAGASTUME, MYA MD Unavailable Unavailable SAGASTUME, MYA MD Unavailable Unavailable SAGASTUME, MYA MD Unavailable Unavailable SAGASTUME, MYA MD Unavailable Unavailable SAGASTUME, MYA MD Unavailable Unavailable SAGASTUME, MYA MD Unavailable Unavailable SAGASTUME, MYA MD Unavailable Unavailable SAGASTUME, MYA MD Unavailable Unavailable SAGASTUME, MYA MD Unavailable Unavailable SAGASTUME, MYA MD Unavailable Unavailable SAGASTUME, MYA MD Unavailable Unavailable SAGASTUME, MYA MD Unavailable Unavailable SAGASTUME, MYA MD Unavailable Unavailable SAGASTUME, MYA MD Unavailable Unavailable SAGASTUME, MYA MD Unavailable Unavailable SAGASTUME, MYA MD Unavailable Unavailable SAGASTUME, MYA MD Unavailable Unavailable SAGASTUME, MYA MD Unavailable Unavailable SAGASTUME, MYA MD Unavailable Unavailable SAGASTUME, MYA MD Unavailable Unavailable SAGASTUME, MYA MD Unavailable Unavailable SAGASTUME, MYA MD Unavailable Unavailable SAGASTUME, MYA MD Unavailable Unavailable SAGASTUME, MYA MD Unavailable Unavailable SAGASTUME, MYA MD Unavailable Unavailable SAGASTUME, MYA MD Unavailable Unavailable SAGASTUME, MYA MD Unavailable Unavailable SAGASTUME, MYA MD Unavailable Unavailable SAGASTUME, MYA MD Unavailable Unavailable SAGASTUME, MYA MD Unavailable Unavailable SAGASTUME, MYA MD Unavailable Unavailable SAGASTUME, MYA MD Unavailable Unavailable SAGASTUME, MYA MD Unavailable Unavailable SAGASTUME, MYA MD Unavailable Unavailable SAGASTUME, MYA MD Unavailable Unavailable SAGASTUME, MYA MD Unavailable Unavailable SAGASTUME, MYA MD Unavailable Unavailable SAGASTUME, MYA MD Unavailable Unavailable SAGASTUME, MYA MD Unavailable Unavailable SAGASTUME, MYA MD Unavailable Unavailable SAGASTUME, MYA MD Unavailable Unavailable SAGASTUME, MYA MD Unavailable Unavailable SAGASTUME, MYA MD Unavailable Unavailable SAGASTUME, MYA MD Unavailable Unavailable SAGASTUME, MYA MD Unavailable Unavailable SAGASTUME, MYA MD Unavailable Unavailable SAGASTUME, MYA MD Unavailable Unavailable SAGASTUME, MYA MD Unavailable Unavailable SAGASTUME, MYA MD Unavailable Unavailable SAGASTUME, MYA MD Unavailable Unavailable SAGASTUME, MYA MD Unavailable Unavailable SAGASTUME, MYA MD Unavailable Unavailable SAGASTUME, MYA MD Unavailable Unavailable SAGASTUME, MYA MD Unavailable Unavailable SAGASTUME, MYA MD Unavailable Unavailable PATTON, ROBERTO PA Unavailable Unavailable PATTON, ROBERTO PA Unavailable Unavailable PATTON, ROBERTO PA Unavailable Unavailable PATTON, ROBERTO PA Unavailable Unavailable PATTON, ROBERTO PA Unavailable Unavailable PATTON, ROBERTO PA Unavailable Unavailable PATTON, ROBERTO PA Unavailable Unavailable PATTON, ROBERTO PA Unavailable Unavailable PATTON, ROBERTO PA Unavailable Unavailable PATTON, ROBERTO PA Unavailable Unavailable PATTON, ROBERTO PA Unavailable Unavailable PATTON, ROBERTO PA Unavailable Unavailable PATTON, ROBERTO PA Unavailable Unavailable PATTON, ROBERTO PA Unavailable Unavailable PATTON, ROBERTO PA Unavailable Unavailable PATTON, ROBERTO PA Unavailable Unavailable PATTON, ROBERTO PA Unavailable Unavailable Cheema, M Eloise PA-C Unavailable Unavailable Cheema, M Eloise PA-C Unavailable Unavailable Cheema, M Eloise PA-C Unavailable Unavailable Cheema, M Eloise PA-C Unavailable Unavailable Cheema, M Eloise PA-C Unavailable Unavailable Cheema, M Eloise PA-C Unavailable Unavailable Cheema, M Eloise PA-C Unavailable Unavailable Cheema, M Eloise PA-C Unavailable Unavailable Cheema, M Eloise PA-C Unavailable Unavailable Cheema, M Eloise PA-C Unavailable Unavailable Cheema, M Eloise PA-C Unavailable Unavailable Cheema, M Eloise PA-C Unavailable Unavailable Cheema, M Eloise PA-C Unavailable Unavailable Cheema, M Eloise PA-C Unavailable Unavailable Cheema, M Eloise PA-C Unavailable Unavailable Cheema, M Eloise PA-C Unavailable Unavailable Cheema, M Eloise PA-C Unavailable Unavailable Cheema, M Eloise PA-C Unavailable Unavailable Cheema, M Eloise PA-C Unavailable Unavailable Cheema, M Eloise PA-C Unavailable Unavailable Cheema, M Eloise PA-C Unavailable Unavailable Cheema, M Eloise PA-C Unavailable Unavailable Cheema, M Eloise PA-C Unavailable Unavailable Cheema, M Eloise PA-C Unavailable Unavailable Cheema, M Eloise PA-C Unavailable Unavailable Cheema, M Eloise PA-C Unavailable Unavailable Cheema, M Eloise PA-C Unavailable Unavailable Cheema, M Eloise PA-C Unavailable Unavailable Cheema, M Eloise PA-C Unavailable Unavailable Cheema, M Eloise PA-C Unavailable Unavailable Cheema, M Eloise PA-C Unavailable Unavailable Cheema, M Eloise PA-C Unavailable Unavailable Cheema, M Eloise PA-C Unavailable Unavailable Cheema, M Eloise PA-C Unavailable Unavailable Cheema, M Eloise PA-C Unavailable Unavailable Cheema, M Eloise PA-C Unavailable Unavailable Cehema, M Eloise PA-C Unavailable Unavailable CheemaKen hanson PA-C Unavailable Unavailable MAURA, B BRONSON TRAILER TRUCK DRIVER Unavailable Unavailable MAURA, B BRONSON TRAILER TRUCK DRIVER Unavailable Unavailable MAURA, B BRONSON TRAILER TRUCK DRIVER Unavailable Unavailable MAURA, B BRONSON TRAILER TRUCK DRIVER Unavailable Unavailable MAURA, B BRONSON TRAILER TRUCK DRIVER Unavailable Unavailable MAURA, B BRONSON TRAILER TRUCK DRIVER Unavailable Unavailable MAURA, B BRONSON TRAILER TRUCK DRIVER Unavailable Unavailable MAURA, B BRONSON TRAILER TRUCK DRIVER Unavailable Unavailable MAURA, B BRONSON TRAILER TRUCK DRIVER Unavailable Unavailable MAURA, B BRONSON TRAILER TRUCK DRIVER Unavailable Unavailable MAURA, B BRONSON TRAILER TRUCK DRIVER Unavailable Unavailable MAURA, B BRONSON TRAILER TRUCK DRIVER Unavailable Unavailable MAURA, B BRONSON TRAILER TRUCK DRIVER Unavailable Unavailable MAURA, B BRONSON TRAILER TRUCK DRIVER Unavailable Unavailable MAURA, B BRONSON TRAILER TRUCK DRIVER Unavailable Unavailable MAURA, B BRONSON TRAILER TRUCK DRIVER Unavailable Unavailable MAURA, B BRONSON TRAILER TRUCK DRIVER Unavailable Unavailable MAURA, B BRONSON TRAILER TRUCK DRIVER Unavailable Unavailable MAURA, B BRONSON TRAILER TRUCK DRIVER Unavailable Unavailable MAURA, B BRONSON TRAILER TRUCK DRIVER Unavailable Unavailable MAURA, B BRONSON TRAILER TRUCK DRIVER Unavailable Unavailable MAURA, B BRONSON TRAILER TRUCK DRIVER Unavailable Unavailable MAURA, B BRONSON TRAILER TRUCK DRIVER Unavailable Unavailable MAURA, B BRONSON TRAILER TRUCK DRIVER Unavailable Unavailable MAURA, B BRONSON TRAILER TRUCK DRIVER Unavailable Unavailable MAURA, B BRONSON TRAILER TRUCK DRIVER Unavailable Unavailable MAURA, B BRONSON TRAILER TRUCK DRIVER Unavailable Unavailable MAURA, B BRONSON TRAILER TRUCK DRIVER Unavailable Unavailable MAURA, B BRONSON TRAILER TRUCK DRIVER Unavailable Unavailable MAURA, B BRONSON TRAILER TRUCK DRIVER Unavailable Unavailable MAURA, B BRONSON TRAILER TRUCK DRIVER Unavailable Unavailable MAURA, B BRONSON TRAILER TRUCK DRIVER Unavailable Unavailable MAURA, B BRONSON TRAILER TRUCK DRIVER Unavailable Unavailable MAURA, B BRONSON TRAILER TRUCK DRIVER Unavailable Unavailable MAURA, B BRONSON TRAILER TRUCK DRIVER Unavailable Unavailable MAURA, B BRONSON TRAILER TRUCK DRIVER Unavailable Unavailable MAURA, B BRONSON TRAILER TRUCK DRIVER Unavailable Unavailable MAURA, B BRONSON TRAILER TRUCK DRIVER Unavailable Unavailable MAURA, B BRONSON TRAILER TRUCK DRIVER Unavailable Unavailable MAURA, B BRONSON TRAILER TRUCK DRIVER Unavailable Unavailable MAURA, B BRONSON TRAILER TRUCK DRIVER Unavailable Unavailable MAURA, B BRONSON TRAILER TRUCK DRIVER Unavailable Unavailable MAURA, B BRONSON TRAILER TRUCK DRIVER Unavailable Unavailable MAURA, B BRONSON TRAILER TRUCK DRIVER Unavailable Unavailable MAURA, B BRONSON TRAILER TRUCK DRIVER Unavailable Unavailable MAURA, B BRONSON TRAILER TRUCK DRIVER Unavailable Unavailable MAURA, B BRONSON TRAILER TRUCK DRIVER Unavailable Unavailable MAURA, B BRONSON TRAILER TRUCK DRIVER Unavailable Unavailable MAURA, B BRONSON TRAILER TRUCK DRIVER Unavailable Unavailable MAURA, B BRONSON TRAILER TRUCK DRIVER Unavailable Unavailable MAURA, B BRONSON TRAILER TRUCK DRIVER Unavailable Unavailable MAURA, B BRONSON TRAILER TRUCK DRIVER Unavailable Unavailable MAURA, B BRONSON TRAILER TRUCK DRIVER Unavailable Unavailable MAURA, B BRONSON TRAILER TRUCK DRIVER Unavailable Unavailable MAURA, B BRONSON TRAILER TRUCK DRIVER Unavailable Unavailable MAURA, B BRONSON TRAILER TRUCK DRIVER Unavailable Unavailable MAURA, B BRONSON TRAILER TRUCK DRIVER Unavailable Unavailable MAURA, B BRONSON TRAILER TRUCK DRIVER Unavailable Unavailable MAURA, B BRONSON TRAILER TRUCK DRIVER Unavailable Unavailable MAURA, B BRONSON TRAILER TRUCK DRIVER Unavailable Unavailable MAURA, B BRONSON TRAILER TRUCK DRIVER Unavailable Unavailable KAUR, J MAXIMO PA Unavailable Unavailable KAUR, J MAXIMO PA Unavailable Unavailable KAUR, J MAXIMO PA Unavailable Unavailable KAUR, J MAXIMO PA Unavailable Unavailable KAUR, J MAXIMO PA Unavailable Unavailable KAUR, J MAXIMO PA Unavailable Unavailable KAUR, J MAXIMO PA Unavailable Unavailable KAUR, J MAXIMO PA Unavailable Unavailable KAUR, J MAXIMO PA Unavailable Unavailable KAUR, J MAXIMO PA Unavailable Unavailable KAUR, J MAXIMO PA Unavailable Unavailable KAUR, J MAXIMO PA Unavailable Unavailable KAUR, J MAXIMO PA Unavailable Unavailable KAUR, J MAXIMO PA Unavailable Unavailable KAUR, J MAXIMO PA Unavailable Unavailable KAUR, J MAXIMO PA Unavailable Unavailable KAUR, J MAXIMO PA Unavailable Unavailable KAUR, J MAXIMO PA Unavailable Unavailable KAUR, J MAXIMO PA Unavailable Unavailable KAUR, J MAXIMO PA Unavailable Unavailable KAUR, J MAXIMO PA Unavailable Unavailable KAUR, J MAXIMO PA Unavailable Unavailable KAUR, J MAXIMO PA Unavailable Unavailable KAUR, J MAXIMO PA Unavailable Unavailable KAUR, J MAXIMO PA Unavailable Unavailable KAUR, J MAXIMO PA Unavailable Unavailable KAUR, J MAXIMO PA Unavailable Unavailable KAUR, J MAXIMO PA Unavailable Unavailable KAUR, J MAXIMO PA Unavailable Unavailable KAUR, J MAXIMO PA Unavailable Unavailable KAUR, J MAXIMO PA Unavailable Unavailable KAUR, J MAXIMO PA Unavailable Unavailable KAUR, J MAXIMO PA Unavailable Unavailable KAUR, J MAXIMO PA Unavailable Unavailable KAUR, J MAXIMO PA Unavailable Unavailable KAUR, J MAXIMO PA Unavailable Unavailable KAUR, J MAXIMO PA Unavailable Unavailable KAUR, J MAXIMO PA Unavailable Unavailable KAUR, J MAXIMO PA Unavailable Unavailable KAUR, J MAXIMO PA Unavailable Unavailable KAUR, J MAXIMO PA Unavailable Unavailable KAUR, J MAXIMO PA Unavailable Unavailable KAUR, J MAXIMO PA Unavailable Unavailable KAUR, J MAXIMO PA Unavailable Unavailable KAUR, J MAXIMO PA Unavailable Unavailable KAUR, J MAXIMO PA Unavailable Unavailable KAUR, J MAXIMO PA Unavailable Unavailable KAUR, J MAXIMO PA Unavailable Unavailable KAUR, J MAXIMO PA Unavailable Unavailable KAUR, J MAXIMO PA Unavailable Unavailable KAUR, J MAXIMO PA Unavailable Unavailable KAUR, J MAXIMO PA Unavailable Unavailable KAUR, J MAXIMO PA Unavailable Unavailable KAUR, J MAXIMO PA Unavailable Unavailable Wineman JR, R Javier PA-C Unavailable Unavailable Wineman JR, R Javier PA-C Unavailable Unavailable Wineman JR, R Javier PA-C Unavailable Unavailable Wineman JR, R Javier PA-C Unavailable Unavailable Wineman JR, R Javier PA-C Unavailable Unavailable Wineman JR, R Javier PA-C Unavailable Unavailable Wineman JR, R Javier PA-C Unavailable Unavailable Wineman JR, R Javier PA-C Unavailable Unavailable Wineman JR, R Javier PA-C Unavailable Unavailable Wineman JR, R Javier PA-C Unavailable Unavailable Wineman JR, R Javier PA-C Unavailable Unavailable Wineman JR, R Javier PA-C Unavailable Unavailable BUMBANAC, A STAR TRAILER TRUCK DRIVER Unavailable Unavailable BUMBANAC, A STAR TRAILER TRUCK DRIVER Unavailable Unavailable BUMBANAC, A STAR TRAILER TRUCK DRIVER Unavailable Unavailable BUMBANAC, A STAR TRAILER TRUCK DRIVER Unavailable Unavailable BUMBANAC, A STAR TRAILER TRUCK DRIVER Unavailable Unavailable BUMBANAC, A STAR TRAILER TRUCK DRIVER Unavailable Unavailable BUMBANAC, A STAR TRAILER TRUCK DRIVER Unavailable Unavailable BUMBANAC, A STAR TRAILER TRUCK DRIVER Unavailable Unavailable BUMBANAC, A STAR TRAILER TRUCK DRIVER Unavailable Unavailable BUMBANAC, A STAR TRAILER TRUCK DRIVER Unavailable Unavailable BUMBANAC, A STAR TRAILER TRUCK DRIVER Unavailable Unavailable BUMBANAC, A STAR TRAILER TRUCK DRIVER Unavailable Unavailable BUMBANAC, A STAR TRAILER TRUCK DRIVER Unavailable Unavailable BUMBANAC, A STAR TRAILER TRUCK DRIVER Unavailable Unavailable BUMBANAC, A STAR TRAILER TRUCK DRIVER Unavailable Unavailable BUMBANAC, A STAR TRAILER TRUCK DRIVER Unavailable Unavailable BUMBANAC, A STAR TRAILER TRUCK DRIVER Unavailable Unavailable BUMBANAC, A STAR TRAILER TRUCK DRIVER Unavailable Unavailable BUMBANAC, A STAR TRAILER TRUCK DRIVER Unavailable Unavailable BUMBANAC, A STAR TRAILER TRUCK DRIVER Unavailable Unavailable BUMBANAC, A STAR TRAILER TRUCK DRIVER Unavailable Unavailable BUMBANAC, A STAR TRAILER TRUCK DRIVER Unavailable Unavailable BUMBANAC, A STAR TRAILER TRUCK DRIVER Unavailable Unavailable BUMBANAC, A STAR TRAILER TRUCK DRIVER Unavailable Unavailable BUMBANAC, A STAR TRAILER TRUCK DRIVER Unavailable Unavailable BUMBANAC, A STAR TRAILER TRUCK DRIVER Unavailable Unavailable BUMBANAC, A STAR TRAILER TRUCK DRIVER Unavailable Unavailable BUMBANAC, A STAR TRAILER TRUCK DRIVER Unavailable Unavailable BUMBANAC, A STAR TRAILER TRUCK DRIVER Unavailable Unavailable BUMBANAC, A STAR TRAILER TRUCK DRIVER Unavailable Unavailable BUMBANAC, A STAR TRAILER TRUCK DRIVER Unavailable Unavailable IKER, LAKEISHA LIBRARY SALES CONSULTANT Unavailable Unavailable IKER, LAKEISHA LIBRARY SALES CONSULTANT Unavailable Unavailable Byrd, A Andres PA Unavailable Unavailable Byrd, A Andres PA Unavailable Unavailable Byrd, A Andres PA Unavailable Unavailable Byrd, A Andres PA Unavailable Unavailable Byrd, A Andres PA Unavailable Unavailable Byrd, A Andres PA Unavailable Unavailable Byrd, A Andres PA Unavailable Unavailable AMERFABY ALEMANAPPA MD Unavailable Unavailable AMERCHAPARRITA ALEMANA MD Unavailable Unavailable AMERCHAPARRITA ALEMANA MD Unavailable Unavailable AMERCHAPARRITA ALEMANA MD Unavailable Unavailable AMERCHAPARRITA ALEMANA MD Unavailable Unavailable AMERCHAPARRITA ALEMANA MD Unavailable Unavailable AMERCHAPARRITA ALEMANA MD Unavailable Unavailable AMERCHAPARRITA ALEMANA MD Unavailable Unavailable AMERCHAPARRITA ALEMANA MD Unavailable Unavailable AMERCHAPARRITA ALEMANA MD Unavailable Unavailable AMERCHAPARRITA ALEMANA MD Unavailable Unavailable AMERFABY ALEMANAPPA MD Unavailable Unavailable MYA SAGASTUME MD Unavailable Unavailable MYA SAGASUTME MD Unavailable Unavailable MYA SAGASTUME MD Unavailable Unavailable MYA SAGASTUME MD Unavailable Unavailable MYA SAGASTUME MD Unavailable Unavailable MYA SAGASTUME MD Unavailable Unavailable MYA SAGASTUME MD Unavailable Unavailable MYA SAGASTUME MD Unavailable Unavailable MYA SAGASTUME MD Unavailable Unavailable MYA SAGASTUME MD Unavailable Unavailable MYA SAGASTUME MD Unavailable Unavailable MYA SAGASTUME MD Unavailable Unavailable MYA SAGASTUME MD Unavailable Unavailable SAGASTUMEMYA GEORGES MD Unavailable Unavailable SAGASTUMEMYA GEORGES MD Unavailable Unavailable SAGASTUMEMYA GEORGES MD Unavailable Unavailable SAGASTUMEMYA GEORGES MD Unavailable Unavailable SAGASTUMEMYA GEORGES MD Unavailable Unavailable MYA SAGASTUME MD Unavailable Unavailable MYA SAGASTUME MD Unavailable Unavailable MYA SAGASTUME MD Unavailable Unavailable MYA SAGASTUME MD Unavailable Unavailable MYA SAGASTUME MD Unavailable Unavailable SAGASTUMEMYA GEORGES MD Unavailable Unavailable SAGASTUMEMYA GEORGES MD Unavailable Unavailable SAGASTUMEMYA GEORGES MD Unavailable Unavailable SAGASTUMEMYA GEORGES MD Unavailable Unavailable SAGASTUMEMYA GEORGES MD Unavailable Unavailable SAGASTUMEMYA GEORGES MD Unavailable Unavailable SAGASTUMEMYA GEORGES MD Unavailable Unavailable SAGASTUMEMYA GEORGES MD Unavailable Unavailable SAGASTUMEMYA GEORGES MD Unavailable Unavailable SAGASTUMEMYA GEORGES MD Unavailable Unavailable SAGASTUMEMYA GEORGES MD Unavailable Unavailable SAGASTUMEMYA GEORGES MD Unavailable Unavailable SAGASTUMEMYA GEORGES MD Unavailable Unavailable SAGASTUMEMYA GEORGES MD Unavailable Unavailable SAGASTUMEMYA GEORGES MD Unavailable Unavailable SAGASTUMEMYA GEORGES MD Unavailable Unavailable SAGASTUMEMYA GEORGES MD Unavailable Unavailable SAGASTUMEMYA GEORGES MD Unavailable Unavailable SAGASTUMEMYA GEORGES MD Unavailable Unavailable SAGASTUMEMYA GEORGES MD Unavailable Unavailable SAGASTUMEMYA GEORGES MD Unavailable Unavailable SAGASTUMEMYA GEORGES MD Unavailable Unavailable SAGASTUMEMYA GEORGES MD Unavailable Unavailable SAGASTUMEMYA GEORGES MD Unavailable Unavailable SAGASTUMEMYA GEORGES MD Unavailable Unavailable SAGASTUMEMYA GEORGES MD Unavailable Unavailable SAGASTUMEMYA GEORGES MD Unavailable Unavailable SAGASTUMEMYA GEORGES MD Unavailable Unavailable SAGASTUMEMYA GEOREGS MD Unavailable Unavailable SAGASTUMEMYA GEORGES MD Unavailable Unavailable SAGASTUMEMYA GEORGES MD Unavailable Unavailable SAGASTUMEMYA GEORGES MD Unavailable Unavailable SAGASTUMEMYA GEORGES MD Unavailable Unavailable SAGASTUMEMYA GEORGES MD Unavailable Unavailable SAGASTUMEMYA GEORGES MD Unavailable Unavailable SAGASTUMEMYA GEORGES MD Unavailable Unavailable SAGASTUMEMYA GEORGES MD Unavailable Unavailable SAGASTUMEMYA GEORGES MD Unavailable Unavailable SAGASTUMEMYA GEORGES MD Unavailable Unavailable SAGASTUMEMYA GEORGES MD Unavailable Unavailable MYA SAGASTUME MD Unavailable Unavailable SAGASTUMEMYA GEORGES MD Unavailable Unavailable SAGASTUMEMYA GEORGES MD Unavailable Unavailable SAGASTUMEMYA GEORGES MD Unavailable Unavailable SAGASTUMEMYA GEORGES MD Unavailable Unavailable SAGASTUMEMYA GEORGES MD Unavailable Unavailable SAGASTUMEMYA GEORGES MD Unavailable Unavailable MAURA, B BRONSON TRAILER TRUCK DRIVER Unavailable Unavailable MAURA, B BRONSON TRAILER TRUCK DRIVER Unavailable Unavailable MAURA, B BRONSON TRAILER TRUCK DRIVER Unavailable Unavailable MAURA, B BRONSON TRAILER TRUCK DRIVER Unavailable Unavailable MAURA, B BRONSON TRAILER TRUCK DRIVER Unavailable Unavailable MAURA, B BRONSON TRAILER TRUCK DRIVER Unavailable Unavailable MAURA, B BRONSON TRAILER TRUCK DRIVER Unavailable Unavailable MAURA, B BRONSON TRAILER TRUCK DRIVER Unavailable Unavailable MAURA, B BRONSON TRAILER TRUCK DRIVER Unavailable Unavailable MAURA, B BRONSON TRAILER TRUCK DRIVER Unavailable Unavailable MAURA, B BRONSON TRAILER TRUCK DRIVER Unavailable Unavailable MAURA, B BRONSON TRAILER TRUCK DRIVER Unavailable Unavailable MAURA, B BRONSON TRAILER TRUCK DRIVER Unavailable Unavailable MAURA, B BRONSON TRAILER TRUCK DRIVER Unavailable Unavailable MAURA, B BRONSON TRAILER TRUCK DRIVER Unavailable Unavailable MAURA, B BRONSON TRAILER TRUCK DRIVER Unavailable Unavailable MAURA, B BRONSON TRAILER TRUCK DRIVER Unavailable Unavailable MAURA, B BRONSON TRAILER TRUCK DRIVER Unavailable Unavailable MAURA, B BRONSON TRAILER TRUCK DRIVER Unavailable Unavailable MAURA, B BRONSON TRAILER TRUCK DRIVER Unavailable Unavailable MAURA, B BRONSON TRAILER TRUCK DRIVER Unavailable Unavailable MAURA, B BRNOSON TRAILER TRUCK DRIVER Unavailable Unavailable MAURA, B BRONSON TRAILER TRUCK DRIVER Unavailable Unavailable MAURA, B BRONSON TRAILER TRUCK DRIVER Unavailable Unavailable MAURA, B BRONSON TRAILER TRUCK DRIVER Unavailable Unavailable MAURA, B BRONSON TRAILER TRUCK DRIVER Unavailable Unavailable MAURA, B BRONSON TRAILER TRUCK DRIVER Unavailable Unavailable MAURA, B BRONSON TRAILER TRUCK DRIVER Unavailable Unavailable MAURA, B BRONSON TRAILER TRUCK DRIVER Unavailable Unavailable MAURA, B BRONSON TRAILER TRUCK DRIVER Unavailable Unavailable MAURA, B BRONSON TRAILER TRUCK DRIVER Unavailable Unavailable MAURA, B BRONSON TRAILER TRUCK DRIVER Unavailable Unavailable MAURA, B BRONSON TRAILER TRUCK DRIVER Unavailable Unavailable MAURA, B BRONSON TRAILER TRUCK DRIVER Unavailable Unavailable MAURA, B BRONSON TRAILER TRUCK DRIVER Unavailable Unavailable MAURA, B BRONSON TRAILER TRUCK DRIVER Unavailable Unavailable MAURA, B BRONSON TRAILER TRUCK DRIVER Unavailable Unavailable MAURA, B BRONSON TRAILER TRUCK DRIVER Unavailable Unavailable MAURA, B BRONSON TRAILER TRUCK DRIVER Unavailable Unavailable MAURA, B BRONSON TRAILER TRUCK DRIVER Unavailable Unavailable MAURA, B BRONSON TRAILER TRUCK DRIVER Unavailable Unavailable MAURA, B BRONSON TRAILER TRUCK DRIVER Unavailable Unavailable MAURA, B BRONSON TRAILER TRUCK DRIVER Unavailable Unavailable MAURA, B BRONSON TRAILER TRUCK DRIVER Unavailable Unavailable MAURA, B BRONSON TRAILER TRUCK DRIVER Unavailable Unavailable MAURA, B BRONSON TRAILER TRUCK DRIVER Unavailable Unavailable MAURA, B BRONSON TRAILER TRUCK DRIVER Unavailable Unavailable MAURA, B BRONSON TRAILER TRUCK DRIVER Unavailable Unavailable MAURA, B BRONSON TRAILER TRUCK DRIVER Unavailable Unavailable MAURA, B BRONSON TRAILER TRUCK DRIVER Unavailable Unavailable MAURA, B BRONSON TRAILER TRUCK DRIVER Unavailable Unavailable MAURA, B BRONSON TRAILER TRUCK DRIVER Unavailable Unavailable MAURA, B BRONSON TRAILER TRUCK DRIVER Unavailable Unavailable MAURA, B BRONSON TRAILER TRUCK DRIVER Unavailable Unavailable MAURA, B BRONSON TRAILER TRUCK DRIVER Unavailable Unavailable MAURA, B BRONSON TRAILER TRUCK DRIVER Unavailable Unavailable MAURA, B BRONSON TRAILER TRUCK DRIVER Unavailable Unavailable MAURA, B BRONSON TRAILER TRUCK DRIVER Unavailable Unavailable MAURA, B BRONSON TRAILER TRUCK DRIVER Unavailable Unavailable MAURA, B BRONSON TRAILER TRUCK DRIVER Unavailable Unavailable MAURA, B BRONSON TRAILER TRUCK DRIVER Unavailable Unavailable BUMBANAC, A STAR TRAILER TRUCK DRIVER Unavailable Unavailable BUMBANAC, A STAR TRAILER TRUCK DRIVER Unavailable Unavailable BUMBANAC, A STAR TRAILER TRUCK DRIVER Unavailable Unavailable BUMBANAC, A STAR TRAILER TRUCK DRIVER Unavailable Unavailable BUMBANAC, A STAR TRAILER TRUCK DRIVER Unavailable Unavailable BUMBANAC, A STAR TRAILER TRUCK DRIVER Unavailable Unavailable BUMBANAC, A STAR TRAILER TRUCK DRIVER Unavailable Unavailable BUMBANAC, A STAR TRAILER TRUCK DRIVER Unavailable Unavailable BUMBANAC, A STAR TRAILER TRUCK DRIVER Unavailable Unavailable BUMBANAC, A STAR TRAILER TRUCK DRIVER Unavailable Unavailable BUMBANAC, A STAR TRAILER TRUCK DRIVER Unavailable Unavailable BUMBANAC, A STAR TRAILER TRUCK DRIVER Unavailable Unavailable BUMBANAC, A STAR TRAILER TRUCK DRIVER Unavailable Unavailable BUMBANAC, A STAR TRAILER TRUCK DRIVER Unavailable Unavailable BUMBANAC, A STAR TRAILER TRUCK DRIVER Unavailable Unavailable BUMBANAC, A STAR TRAILER TRUCK DRIVER Unavailable Unavailable BUMBANAC, A STAR TRAILER TRUCK DRIVER Unavailable Unavailable BUMBANAC, A STAR TRAILER TRUCK DRIVER Unavailable Unavailable BUMBANAC, A STAR TRAILER TRUCK DRIVER Unavailable Unavailable BUMBANAC, A STAR TRAILER TRUCK DRIVER Unavailable Unavailable BUMBANAC, A STAR TRAILER TRUCK DRIVER Unavailable Unavailable BUMBANAC, A STAR TRAILER TRUCK DRIVER Unavailable Unavailable BUMBANAC, A STAR TRAILER TRUCK DRIVER Unavailable Unavailable BUMBANAC, A STAR TRAILER TRUCK DRIVER Unavailable Unavailable BUMBANAC, A STAR TRAILER TRUCK DRIVER Unavailable Unavailable BUMBANAC, A STAR TRAILER TRUCK DRIVER Unavailable Unavailable BUMBANAC, A STAR TRAILER TRUCK DRIVER Unavailable Unavailable BUMBANAC, A STAR TRAILER TRUCK DRIVER Unavailable Unavailable BUMBANAC, A STAR TRAILER TRUCK DRIVER Unavailable Unavailable BUMBANAC, A STAR TRAILER TRUCK DRIVER Unavailable Unavailable BUMBANAC, A STAR TRAILER TRUCK DRIVER Unavailable Unavailable KERNS, ANA MARIA EVANGELIST TRAILER TRUCK DRIVER Unavailable Unavailable KERNS, ANA MARIA EVANGELIST TRAILER TRUCK DRIVER Unavailable Unavailable KERNS, ANA MARIA EVANGELIST TRAILER TRUCK DRIVER Unavailable Unavailable KERNS, ANA MARIA EVANGELIST TRAILER TRUCK DRIVER Unavailable Unavailable KERNS, ANA MARIA EVANGELIST TRAILER TRUCK DRIVER Unavailable Unavailable KERNS, ANA MARIA EVANGELIST TRAILER TRUCK DRIVER Unavailable Unavailable KERNS, ANA MARIA EVANGELIST TRAILER TRUCK DRIVER Unavailable Unavailable KERNS, ANA MARIA EVANGELIST TRAILER TRUCK DRIVER Unavailable Unavailable KERNS, ANA MARIA EVANGELIST TRAILER TRUCK DRIVER Unavailable Unavailable KERNS, ANA MARIA EVANGELIST TRAILER TRUCK DRIVER Unavailable Unavailable KERNS, ANA MARIA EVANGELIST TRAILER TRUCK DRIVER Unavailable Unavailable KERNS, ANA MARIA EVANGELIST TRAILER TRUCK DRIVER Unavailable Unavailable KERNS, ANA MARIA EVANGELIST TRAILER TRUCK DRIVER Unavailable Unavailable KERNS, ANA MARIA EVANGELIST TRAILER TRUCK DRIVER Unavailable Unavailable KERNS, ANA MARIA EVANGELIST TRAILER TRUCK DRIVER Unavailable Unavailable KERNS, ANA MARIA EVANGELIST TRAILER TRUCK DRIVER Unavailable Unavailable KERNS, ANA MARIA EVANGELIST TRAILER TRUCK DRIVER Unavailable Unavailable KERNS, ANA MARIA EVANGELIST TRAILER TRUCK DRIVER Unavailable Unavailable KERNS, ANA MARIA EVANGELIST TRAILER TRUCK DRIVER Unavailable Unavailable KERNS, ANA MARIA EVANGELIST TRAILER TRUCK DRIVER Unavailable Unavailable KERNS, ANA MARIA EVANGELIST TRAILER TRUCK DRIVER Unavailable Unavailable KERNS, ANA MARIA EVANGELIST TRAILER TRUCK DRIVER Unavailable Unavailable KERNS, ANA MARIA EVANGELIST TRAILER TRUCK DRIVER Unavailable Unavailable TURRIN, NADYA Unavailable Unavailable TURRIN, NADYA Unavailable Unavailable TURRIN, NADYA Unavailable Unavailable TURRIN, NADYA Unavailable Unavailable Seth, D Lamine TRAILER TRUCK DRIVER Unavailable Unavailable Seth, D Lamine TRAILER TRUCK DRIVER Unavailable Unavailable Seth, D Lamine TRAILER TRUCK DRIVER Unavailable Unavailable Seth, D Lamine TRAILER TRUCK DRIVER Unavailable Unavailable Seth, D Lamine TRAILER TRUCK DRIVER Unavailable Unavailable Seth, D Lamine TRAILER TRUCK DRIVER Unavailable Unavailable Seth, D Lamine TRAILER TRUCK DRIVER Unavailable Unavailable Seth, D Lamine TRAILER TRUCK DRIVER Unavailable Unavailable Seth, D Lamine TRAILER TRUCK DRIVER Unavailable Unavailable Seth, D Lamine TRAILER TRUCK DRIVER Unavailable Unavailable Seth, D Lamine TRAILER TRUCK DRIVER Unavailable Unavailable Seth, D Lamine TRAILER TRUCK DRIVER Unavailable Unavailable Seth, D Lamine TRAILER TRUCK DRIVER Unavailable Unavailable Seth, D Lamine TRAILER TRUCK DRIVER Unavailable Unavailable Seth, D Lamine TRAILER TRUCK DRIVER Unavailable Unavailable Seth, D Lamine TRAILER TRUCK DRIVER Unavailable Unavailable Seth, D Lamine TRAILER TRUCK DRIVER Unavailable Unavailable Seth, D Lamine TRAILER TRUCK DRIVER Unavailable Unavailable Seth, D Lamine TRAILER TRUCK DRIVER Unavailable Unavailable Seth, D Lamine TRAILER TRUCK DRIVER Unavailable Unavailable Seth, D Lamine TRAILER TRUCK DRIVER Unavailable Unavailable Seth, D Lamine TRAILER TRUCK DRIVER Unavailable Unavailable Seth, D Lamine TRAILER TRUCK DRIVER Unavailable Unavailable Seth, D Lamine TRAILER TRUCK DRIVER Unavailable Unavailable Seth, D Lamine TRAILER TRUCK DRIVER Unavailable Unavailable Seth, D Lamine TRAILER TRUCK DRIVER Unavailable Unavailable Seth, D Lamine TRAILER TRUCK DRIVER Unavailable Unavailable Seth, D Lamine TRAILER TRUCK DRIVER Unavailable Unavailable Seth, D Lamine TRAILER TRUCK DRIVER Unavailable Unavailable Seth, D Lamine TRAILER TRUCK DRIVER Unavailable Unavailable Seth, D Lamine TRAILER TRUCK DRIVER Unavailable Unavailable Seth, D Lamine TRAILER TRUCK DRIVER Unavailable Unavailable Seth, D Lamine TRAILER TRUCK DRIVER Unavailable Unavailable Seth, D Lamine TRAILER TRUCK DRIVER Unavailable Unavailable Seth, D Lamine TRAILER TRUCK DRIVER Unavailable Unavailable Seth, D Lamine TRAILER TRUCK DRIVER Unavailable Unavailable Seth, D Lamine TRAILER TRUCK DRIVER Unavailable Unavailable Seth, D Lamine TRAILER TRUCK DRIVER Unavailable Unavailable Seth, D Lamine TRAILER TRUCK DRIVER Unavailable Unavailable Seth, D Lamine TRAILER TRUCK DRIVER Unavailable Unavailable Jonathan Benoit MD Unavailable Unavailable Jonathan Benoit MD Unavailable Unavailable Jonathan Benoit MD Unavailable Unavailable Jonathan Benoit MD Unavailable Unavailable Jonathan Benoit MD Unavailable Unavailable Jonathan Benoit MD Unavailable Unavailable Jonathan Benoit MD Unavailable Unavailable Jonathan Benoit MD Unavailable Unavailable Jonathan Benoit MD Unavailable Unavailable Jonathan Benoit MD Unavailable Unavailable Jonathan Benoit MD Unavailable Unavailable Jonathan Benoit MD Unavailable Unavailable Jonathan Benoit MD Unavailable Unavailable Jonathan Benoit MD Unavailable Unavailable oJnathan Benoit MD Unavailable Unavailable Jonathan Benoit MD Unavailable Unavailable Jonathan Benoit MD Unavailable Unavailable Jonathan Benoit MD Unavailable Unavailable Jonathan Benoit MD Unavailable Unavailable Jonathan Benoit MD Unavailable Unavailable Jonathan Benoit MD Unavailable Unavailable Jonathan Benoit MD Unavailable Unavailable Jonathan Benoit MD Unavailable Unavailable Fish, Jonathan Bermeo MD Unavailable Unavailable Fish, B Elvie HECTOR Unavailable Unavailable Fish, B Elvie HECTOR Unavailable Unavailable Fish, B Elvie HECTOR Unavailable Unavailable Fish, B Elvie HECTOR Unavailable Unavailable Fish, B Elvie HECTOR Unavailable Unavailable Fish, B Elvie HECTOR Unavailable Unavailable Fish, B Elvie HECTOR Unavailable Unavailable Fish, B Elvie HECTOR Unavailable Unavailable Fish, B Elvie HECTOR Unavailable Unavailable Fish, B Elvie HECTOR Unavailable Unavailable Fish, B Elvie HECTOR Unavailable Unavailable Fish, B Elvie HECTOR Unavailable Unavailable Fish, B Elvie HECTOR Unavailable Unavailable Fish, B Elvie HECTOR Unavailable Unavailable Fish, B Elvie HECTOR Unavailable Unavailable Fish, B Elvie HECTOR Unavailable Unavailable Fish, B Elvie HECTOR Unavailable Unavailable Fish, B Elvie HECTOR Unavailable Unavailable Fish, B Elvie HECTOR Unavailable Unavailable Fish, B Elvie HECTOR Unavailable Unavailable Fish, B Elvie HECTOR Unavailable Unavailable Fish, B Elvie HECTOR Unavailable Unavailable Fish, B Elvie HECTOR Unavailable Unavailable Fish, B Elvie HECTOR Unavailable Unavailable Fish, B Elvie HECTOR Unavailable Unavailable Fish, B Elvie HECTOR Unavailable Unavailable Fish, B Elvie HECTOR Unavailable Unavailable Fish, B Elvie HECTOR Unavailable Unavailable Fish, B Elvie HECTOR Unavailable Unavailable Fish, B Elvie HECTOR Unavailable Unavailable Fish, B Elvie HECTOR Unavailable Unavailable Fish, B Elvie HECTOR Unavailable Unavailable Fish, B Elvie HECTOR Unavailable Unavailable Fish, B Elvie HECTOR Unavailable Unavailable Fish, B Elvie HECTOR Unavailable Unavailable Fish, B Elvie HECTOR Unavailable Unavailable Fish, B Elvie HECTOR Unavailable Unavailable Fish, B Elvie HECTOR Unavailable Unavailable Fish, B Elvie HECTOR Unavailable Unavailable Fish, B Elvie HECTOR Unavailable Unavailable Fish, B Elvie HECTOR Unavailable Unavailable Wineman JR, R Javier PA-C Unavailable Unavailable Wineman JR, R Javier PA-C Unavailable Unavailable Wineman JR, R Javier PA-C Unavailable Unavailable Wineman JR, R Javier PA-C Unavailable Unavailable Wineman JR, R Javier PA-C Unavailable Unavailable Wineman JR, R Javier PA-C Unavailable Unavailable Wineman JR, R Javier PA-C Unavailable Unavailable Wineman JR, R Javier PA-C Unavailable Unavailable Wineman JR, R Javier PA-C Unavailable Unavailable Wineman JR, R Javier PA-C Unavailable Unavailable Wineman JR, R Javier PA-C Unavailable Unavailable [id number], [id number] Unavailable Unavailable HEATHER MATHIS PA Unavailable Unavailable HEATHER MATHIS PA Unavailable Unavailable DEL, HEATHER DAVIDA PA Unavailable Unavailable DEL, HEATHER DAVIDA PA Unavailable Unavailable DEL, HEATHER DAVIDA PA Unavailable Unavailable DEL, HEATHER DAVIDA PA Unavailable Unavailable DEL, HEATHER DAVIDA PA Unavailable Unavailable DEL, HEATHER DAVIDA PA Unavailable Unavailable DEL, HEATHER DAVIDA PA Unavailable Unavailable DEL, HEATHER DAVIDA PA Unavailable Unavailable DEL, HEATHER DAVIDA PA Unavailable Unavailable DEL, HEATHER DAVIDA PA Unavailable Unavailable DEL, HEATHER DAVIDA PA Unavailable Unavailable DEL, HEATHER DAVIDA PA Unavailable Unavailable DEL, HEATHER DAVIDA PA Unavailable Unavailable DEL, HEATHER DAVIDA PA Unavailable Unavailable DEL, HEATHER DAVIDA PA Unavailable Unavailable DEL, HEATHER DAVIDA PA Unavailable Unavailable DEL, HEATHER DAVIDA PA Unavailable Unavailable DEL, HEATHER DAVIDA PA Unavailable Unavailable DEL, HEATHER DAVIDA PA Unavailable Unavailable DEL, HEATHER DAVIDA PA Unavailable Unavailable Gera Alexandra MD Unavailable Unavailable Gera Alexandra MD Unavailable Unavailable Gera Alexandra MD Unavailable Unavailable Gera Alexandra MD Unavailable Unavailable Gera Alexandra MD Unavailable Unavailable Gera Alexandra MD Unavailable Unavailable Gera Alexandra MD Unavailable Unavailable Gera Alexandra MD Unavailable Unavailable Gera Alexandra MD Unavailable Unavailable Gera Alexandra MD Unavailable Unavailable Gera Alexandra MD Unavailable Unavailable Gera Alexanrda MD Unavailable Unavailable Gera Alexandra MD Unavailable Unavailable Gera Alexandra MD Unavailable Unavailable Gera Alexandra MD Unavailable Unavailable Gera Alexandra MD Unavailable Unavailable Gera Alexandra MD Unavailable Unavailable Gera Alexandra MD Unavailable Unavailable Gera Alexandra MD Unavailable Unavailable Gera Alexandra MD Unavailable Unavailable Gera Alexandra MD Unavailable Unavailable Gera Alexandra MD Unavailable Unavailable Gera Alexandra MD Unavailable Unavailable Gera Alexandra MD Unavailable Unavailable Gera Alexandra MD Unavailable Unavailable Gera Alexandra MD Unavailable Unavailable DJOUINI, KIARRA PA-C Unavailable Unavailable DJOUINI, KIARRA PA-C Unavailable Unavailable DJOUINI, KIARRA PA-C Unavailable Unavailable DJOUINI, KIARRA PA-C Unavailable Unavailable DJOUINI, KIARRA PA-C Unavailable Unavailable DJOUINI, KIARRA PA-C Unavailable Unavailable DJOUINI, KIARRA PA-C Unavailable Unavailable Rowland, Olivia MHC Unavailable Unavailable Rowland, Olivia MHC Unavailable Unavailable DJOUINI, KIARRA PA-C Unavailable Unavailable DJOUINI, KIARRA PA-C Unavailable Unavailable DJOUINI, KIARRA PA-C Unavailable Unavailable DJOUINI, KIARRA PA-C Unavailable Unavailable DJOUINI, KIARRA PA-C Unavailable Unavailable DJOUINI, KIARRA PA-C Unavailable Unavailable Yon Cota MD Unavailable Unavailable Yon Cota MD Unavailable Unavailable Yon Cota MD Unavailable Unavailable Yon Cota MD Unavailable Unavailable Yon Cota MD Unavailable Unavailable Yon Cota MD Unavailable Unavailable Yon Cota MD Unavailable Unavailable Yon Cota MD Unavailable Unavailable Yon Cota MD Unavailable Unavailable AliYon MD Unavailable Unavailable AliYon MD Unavailable Unavailable AliYon MD Unavailable Unavailable AliYon MD Unavailable Unavailable AliYon MD Unavailable Unavailable Yon Cota MD Unavailable Unavailable Yon Cota MD Unavailable Unavailable Yon Cota MD Unavailable Unavailable Yon Cota MD Unavailable Unavailable AliYon MD Unavailable Unavailable AliYon MD Unavailable Unavailable AliYon MD Unavailable Unavailable AliYon MD Unavailable Unavailable Yon Cota MD Unavailable Unavailable Yon Cota MD Unavailable Unavailable Yon Cota MD Unavailable Unavailable Yon Cota MD Unavailable Unavailable Yon Cota MD Unavailable Unavailable AliYon MD Unavailable Unavailable AliYon MD Unavailable Unavailable AliYon MD Unavailable Unavailable AliYon MD Unavailable Unavailable AliYon MD Unavailable Unavailable AliYon MD Unavailable Unavailable AliYon MD Unavailable Unavailable Yon Cota MD Unavailable Unavailable Yon Cota MD Unavailable Unavailable Yon Cota MD Unavailable Unavailable Yon Cota MD Unavailable Unavailable Yon Cota MD Unavailable Unavailable AliYon MD Unavailable Unavailable AliYon MD Unavailable Unavailable Yon Cota MD Unavailable Unavailable Yon Cota MD Unavailable Unavailable Yon Cota MD Unavailable Unavailable Yon Cota MD Unavailable Unavailable Yon Cota MD Unavailable Unavailable AliYon MD Unavailable Unavailable AliYon MD Unavailable Unavailable AliVíctorYon MD Unavailable Unavailable Yon Cota MD Unavailable Unavailable Wilsie, A Lety [facility] [place] Un[place] Fish, Jonathan Bermeo MD Unavailable Unavailable Fish, Jonathan Bermeo MD Unavailable Unavailable Fish, Jonathan Bermeo MD Unavailable Unavailable Fish, Jonathan Bermeo MD Unavailable Unavailable Fish, Jonathan Bermeo MD Unavailable Unavailable Fish, Jonathan Bermeo MD Unavailable Unavailable Fish, Jonathan Bermeo MD Unavailable Unavailable Fish, Jonathan Bermeo MD Unavailable Unavailable Fish, Jonathan Bermeo MD Unavailable Unavailable Fish, Jonathan Bermeo MD Unavailable Unavailable Fish, Jonathan Bermeo MD Unavailable Unavailable Fish, Jonathan Bremeo MD Unavailable Unavailable Fish, Jonathan Bermeo MD Unavailable Unavailable Fish, Jonathan Bermeo MD Unavailable Unavailable Fish, Jonathan Bermeo MD Unavailable Unavailable Fish, Jonathan Bermeo MD Unavailable Unavailable Fish, Jonathan Bermeo MD Unavailable Unavailable Fish, Jonathan Bermeo MD Unavailable Unavailable Fish, Jonathan Bermeo MD Unavailable Unavailable Fish, Jonathan Bermeo MD Unavailable Unavailable Fish, Jonathan Bermeo MD Unavailable Unavailable Fish, Jonathan Bermeo MD Unavailable Unavailable Fish, Jonahtan Bermeo MD Unavailable Unavailable Fish, Jonathan Bermeo MD Unavailable Unavailable Fish, Jonathan Bermeo MD Unavailable Unavailable Fish, Jonathan Bermeo MD Unavailable Unavailable Fish, Jonathan Bermeo MD Unavailable Unavailable Fish, Jonathan Bermeo MD Unavailable Unavailable Fish, Jonathan Bermeo MD Unavailable Unavailable Fish, Jonathan Bermeo MD Unavailable Unavailable Fish, Jonathan Bermeo MD Unavailable Unavailable Fish, Jonathan Bermeo MD Unavailable Unavailable Fish, Jonathan Bermeo MD Unavailable Unavailable Fish, Jonathan Bermeo MD Unavailable Unavailable Fish, Jonathan Bermeo MD Unavailable Unavailable Fish, Jonathan Bermeo MD Unavailable Unavailable Fish, Jonathan Bermeo MD Unavailable Unavailable Fish, Jonathan Bermeo MD Unavailable Unavailable Fish, Jonathan Bermeo MD Unavailable Unavailable Fish, Jonathan Bermeo MD Unavailable Unavailable Fish, Jonathan Bermeo MD Unavailable Unavailable Fish, Jonathan Bermeo MD Unavailable Unavailable Fish, Jonathan Bermeo MD Unavailable Unavailable Fish, Jonathan Bermeo MD Unavailable Unavailable Fish, Jonathan Bermeo MD Unavailable Unavailable Fish, Jonathan Bermeo MD Unavailable Unavailable Fish, Jonathan Bermeo MD Unavailable Unavailable Fish, Jonathan Bermeo MD Unavailable Unavailable Fish, Jonathan Bermeo MD Unavailable Unavailable Fish, Jonathan Bermeo MD Unavailable Unavailable Fish, Jonathan Bermeo MD Unavailable Unavailable Fish, Jonathan Bermeo MD Unavailable Unavailable Fish, Jonathan Bermeo MD Unavailable Unavailable Fish, Jonathan Bermeo MD Unavailable Unavailable Fish, Jonathan Bermeo MD Unavailable Unavailable Fish, Jonathan Bermeo MD Unavailable Unavailable Fish, Jonathan Bermeo MD Unavailable Unavailable Fish, Jonathan Bermeo MD Unavailable Unavailable Fish, Jonathan Bermeo MD Unavailable Unavailable Fish, Jonathan Bermeo MD Unavailable Unavailable Fish B Elvie HECTOR Unavailable Unavailable Fish B Elvie HECTOR Unavailable Unavailable Fish B Elvie HECTOR Unavailable Unavailable Fish B Elvie HECTOR Unavailable Unavailable Fish B Elvie HECTOR Unavailable Unavailable Re-disclosure Warning The records that you are about to access may contain information from federally-assisted alcohol or drug abuse programs. If such information is present, then the following federally mandated warning applies: This information has been disclosed to you from records protected by federal confidentiality rules (42 CFR part 2). The federal rules prohibit you from making any further disclosure of this information unless further disclosure is expressly permitted by the written consent of the person to whom it pertains or as otherwise permitted by 42 CFR part 2. A general authorization for the release of medical or other information is NOT sufficient for this purpose. The Federal rules restrict any use of the information to criminally investigate or prosecute any alcohol or drug abuse patient.The records that you are about to access may contain highly sensitive health information, the redisclosure of which is protected by Article 27-F of the [facility] Public Health law. If you continue you may have access to information: Regarding HIV / AIDS; Provided by facilities licensed or operated by the [facility] Office of Mental Health; or Provided by the [facility] Office for People With Developmental Disabilities. If such information is present, then the following [facility] mandated warning applies: This information has been disclosed to you from confidential records which are protected by state law. State law prohibits you from making any further disclosure of this information without the specific written consent of the person to whom it pertains, or as otherwise permitted by law. Any unauthorized further disclosure in violation of state law may result in a fine or nursing home sentence or both. A general authorization for the release of medical or other information is NOT sufficient authorization for further disc losure. Allergies and Adverse Reactions Type Description Substance Reaction Status Data Source(s ) No Known Food Allergies No Known Food Allergies [facility] Propensity to adverse reactions VICODIN VICODIN [facility] Propensity to adverse reactions LATEX LATEX [facility] Drug allergy MORPHINE MORPHINE [facility] Drug allergy CODEINE CODEINE [facility] Propensity to adverse reactions OPIOID OPIOID HIVES [facility] Family History Family Member Name Family Member Gender Family Member Status Date o f Status Description Data Source(s) Unknown Unknown Problem [facility] ([facility]) Encounters Encounter Providers Location Date Indications Data Source(s ) Outpatient Attender: Olivia Rowland MHCConsultant: MYA HUFFMAN MD 03/16/2021 03:45:00 PM EDT - 03/16/2021 03:45:00 PM EDT [facility] Outpatient Attender: Olivia Rowland MHCConsultant: MYA HUFFMAN MD 03/10/2021 03:07:00 PM EDT - 03/10/2021 03:07:00 PM EDT [facility] Outpatient Attender: MYA SAGASTUME MDConsultant: MYA Lind MD 02/26/2021 01:13:00 PM EDT - 02/26/2021 02:13:00 PM EDT [facility] Outpatient Attender: EVANGELIST KERNS NPConsultant: MYA SAGASTUME MD 02/26/2021 01:11:00 PM EDT - 02/26/2021 02:11:00 PM EDT [facility] Outpatient Attender: Olivia Rowland MHCA ttender: EVANGELIST KERNS NPConsultant: MYA SAGASTUME MD 02/24/2021 03:59:00 PM EDT - 02/24/2021 03:59:00 PM EDT [facility] Outpatient Attender: MARK KENNEY NPConsultant: MYA GEORGES MD 02/22/2021 08:29:00 AM EDT - 02/22/2021 08:29:00 AM EDT [facility] Emergency Attender: NADYA AWADConsultant: MYA Lind MD 02/22/2021 07:44:00 AM EDT - 02/22/2021 07:59:00 AM EDT [facility] Patient discharged. Outpatient Attender: EVANGELIST KERNS TRAILER TRUCK DRIVER [facility] 02/17/2021 02 :15:00 PM EDT [facility] ([facility]) Outpatient Attender: EVANGELIST KERNS NPConsultant: MYA SAGASTUME MD 02/17/2021 01:50:00 PM EDT - 02/17/2021 01:50:00 PM EDT [facility] Outpatient Attender: MYA SAGASTUME MDConsultant: MYA Lind MD 02/17/2021 01:23:00 PM EDT - 02/17/2021 01:23:00 PM EDT [facility] Outpatient Attender: MYA SAGASTUME MD [facility] 02/17/2021 0 1:00:00 PM EDT [facility] ([facility]) Outpatient Attender: MAXIMO KAUR PAConsultant: MYA GEORGES MD 02/10/2021 09:42:00 AM EDT - 02/10/2021 09:42:00 AM EDT [facility] Outpatient Attender: MAXIMO GUSTAFSON [facility] 02/10 09:40:00 AM EDT [facility] ([facility] Outpatient Attender: DAVIDA MATHIS PAConsultant: MYA SAGASTUME MD 01/29/2021 02:00:00 PM EDT - 01/29/2021 02:00:00 PM EDT [facility] Outpatient Attender: KIARRA CORREACConsultant: MYA SAGASTUME MD 01/24/2021 02:13:00 PM EDT - 01/24/2021 02:13:00 PM EDT [facility] Outpatient Attender: KIARRA MURCIA PA-C [facility] 02:10:00 PM EDT [facility] ([facility] Outpatient Attender: Olivia Rowland MHCConsultant: MYA HUFFMAN MD 01/22/2021 01:06:00 PM EDT - 01/22/2021 01:06:00 PM EDT [facility] Outpatient Attender: Olivia Rowland MHCConsultant: MYA HUFFMAN MD 12/23/2020 03:03:00 PM EDT - 12/23/2020 03:03:00 PM EDT [facility] Outpatient Attender: MARK KENNEY NPConsultant: MYA GEORGES MD 11/20/2020 12:31:00 PM EDT - 11/20/2020 12:31:00 PM EDT [facility] Outpatient Attender: Olivia Rowland MHCConsultant: MYA HUFFMAN MD 11/18/2020 03:11:00 PM EDT - 11/18/2020 03:11:00 PM EDT [facility] Attender: MYA SAGASTUME MD Family Practice 11/17/2020 0 1:00:00 PM EDT [facility] ([facility]) Outpatient Attender: MYA SAGASTUME MDConsultant: MYA Lind MD 11/17/2020 12:59:00 PM EDT - 11/17/2020 12:59:00 PM EDT [facility] OFFICE OUTPATIENT VISIT 15 MINUTES Attender: Elvie Benoit MD Phy sical Therapy 11/12/2020 10:00:00 AM EDT [facility] ([facility]) Outpatient Attender: Elvie Benoit MDConsultant: MYA Lind MD 11/09/2020 12:33:00 PM EDT - 11/09/2020 01:33:00 PM EDT [facility] Outpatient Attender: MAXIMO KAUR PAConsultant: MYA GEORGES MD 11/09/2020 11:27:00 AM EDT - 11/09/2020 11:27:00 AM EDT [facility] Outpatient Attender: MAXIMO GUSTAFSON Family Practice 11/09 11:20:00 AM EDT [facility] Outpatient Attender: Olivia Rowland MHCConsultant: MYA HUFFMAN MD 10/14/2020 03:04:00 PM EDT - 10/14/2020 03:04:00 PM EDT [facility] Outpatient Attender: Lamine Ann NPConsultant: MYA MOHAMUD MD 10/06/2020 01:50:00 PM EDT - 10/06/2020 01:50:00 PM EDT [facility] Outpatient Attender: Eloise GUSTAFSON-CConsultant: MYA HUFFMAN MD 10/03/2020 01:47:00 PM EDT - 10/03/2020 01:47:00 PM EDT [facility] Outpatient Attender: MARK KENNEY NP Family Practice 09/25 02:50:00 PM EDT [facility] Outpatient Attender: MARK KENNEY NPConsultant: MYA GEORGES MD 09/25/2020 02:36:00 PM EDT - 09/25/2020 02:36:00 PM EDT [facility] Outpatient Attender: Olivia Rowland MHCConsultant: MYA HUFFMAN MD 09/16/2020 03:01:00 PM EDT - 09/16/2020 03:01:00 PM EDT [facility] Outpatient Attender: Javier Cruz JR Family Practice 09/12 02:20:00 PM [facility] Outpatient Attender: Javier Cruz JRConsultant: MYA GEORGES MD 09/12/2020 02:18:00 PM EDT - 09/12/2020 02:18:00 PM EDT [facility] Outpatient Attender: MARK KENNEY NPConsultant: MYA GEORGES MD 09/03/2020 03:35:00 PM EDT - 09/03/2020 03:35:00 PM EDT [facility] Outpatient Attender: Olivia Rowland MHCConsultant: MYA HUFFMAN MD 08/26/2020 03:03:00 PM EDT - 08/26/2020 03:03:00 PM EDT [facility] Outpatient Attender: Olivia Rowland MHCConsultant: MYA HUFFMAN MD 08/11/2020 02:58:00 PM EST - 08/11/2020 02:58:00 PM EST [facility] Outpatient Attender: MAXIMO KAUR PAConsultant: MYA GEORGES MD 08/07/2020 11:21:00 AM EST - 08/07/2020 11:21:00 AM [facility] Outpatient Attender: MAXIMO GUSTAFSON Family Practice 08/07 10:20:00 AM EST [facility] ([facility] Outpatient Attender: MAXIMO KAUR PAConsultant: MYA GEORGES MD 07/31/2020 01:03:00 PM EST - 07/31/2020 02:03:00 PM EST [facility] Outpatient Attender: Olivia Danielant: MYA HUFFMAN MD 07/29/2020 02:56:00 PM EST - 07/29/2020 02:56:00 PM [facility] Outpatient Attender: MAXIMO KAUR PAConsultant: MYA GEORGES MD 07/07/2020 11:05:00 AM EST - 07/07/2020 11:05:00 AM [facility] Outpatient Attender: Olivia Rowland MHCConsultant: MYA HUFFMAN MD 07/01/2020 02:50:00 PM EST - 07/01/2020 02:50:00 PM [facility] Outpatient Attender: Andres Byrd PAConsultant: MYA MOHAMUD MD 06/30/2020 10:56:00 AM EST - 06/30/2020 10:56:00 AM [facility] Outpatient Attender: Olivia Rowland MHCConsultant: MYA HUFFMAN MD 06/17/2020 02:55:00 PM EST - 06/17/2020 02:55:00 PM [facility] Outpatient Attender: MYA SAGASTUME MDConsultant: MYA Lind MD 06/15/2020 09:21:00 AM EST - 06/15/2020 09:21:00 AM [facility] Outpatient Attender: MYA SAGASTUME MD Family Practice 06/15/2020 0 8:20:00 AM EST [facility] ([facility]) Outpatient Attender: Yon Cota MD Main office [facility] 06/11/2020 01:15:00 PM EST [facility] ([facility] Outpatient Attender: Olivia Rowland MHCConsultant: MYA HUFFMAN MD 05/25/2020 03:55:00 PM EST - 05/25/2020 03:55:00 PM [facility] Outpatient Attender: MAXIMO KAUR PAConsultant: MYA GEORGES MD 05/25/2020 02:50:00 PM EST - 05/25/2020 02:50:00 PM [facility] Outpatient Attender: [id number] Family Practice 05/25/2020 02:00:00 PM EST [facility] ([facility] Outpatient Attender: Elvie Benoit MD Physical Therapy 05/22 02:00:00 PM EST [facility] ([facility]) Outpatient Attender: MYA SAGASTUME MDConsultant: MYA Lind MD 05/14/2020 02:57:00 PM EST - 05/14/2020 02:57:00 PM EST [facility] Outpatient Attender: MYA SAGASTUME MD Family Practice 05/14/2020 0 2:00:00 PM EST [facility] ([facility]) Outpatient Attender: Olivia Rowland MHCConsultant: MYA HUFFMAN MD 05/12/2020 10:40:00 AM EST - 05/12/2020 10:40:00 AM EST [facility] Outpatient Attender: LAKEISHA OSEI WReferrer: Kanu Alexandra MDConsultant: MYA SAGASTUME MD 04/01/2020 10:00:00 AM E DT - 04/01/2020 10:00:00 AM EDT [facility] Outpatient Attender: BRONSON LORENZO NPConsultant: MYA MOHAMUD MD 03/31/2020 11:36:00 AM EDT - 03/31/2020 12:36:00 PM EDT [facility] Outpatient Attender: Elvie Benoit MDRef errer: Elvie Benoit MDConsultant: MYA SAGASTUME MD 03/31/2020 09:50:00 AM EDT - 03/31/2020 10:00:00 AM EDT [facility] Patient discharged. Outpatient Attender: Elvie Benoit MD Physical Therapy 03/19 03:00:00 PM EDT [facility] ([facility]) Outpatient Attender: BRONSON LORENZO NPConsultant: MYA MOHAMUD MD 03/17/2020 01:53:00 PM EDT - 03/17/2020 02:53:00 PM EDT [facility] Outpatient Attender: ROBERTO PATTON PAConsultant: MYA SAGASTUME MD 03/08/2020 01:52:00 PM EDT - 03/08/2020 01:52:00 PM EDT [facility] Outpatient Attender: MARK KENNEY NPConsultant: MYA GEORGES MD 02/26/2020 12:20:00 PM EDT - 02/26/2020 12:20:00 PM EDT [facility] Outpatient Attender: MARK KENNEY NP Family Practice 02/25 12:15:00 PM EDT [facility] Outpatient Attender: MYA SAGASTUME MD Family Practice 02/24/2020 0 1:00:00 PM EDT [facility] ([facility]) Outpatient Attender: MYA SAGASTUME MDConsultant: MYA Lind MD 02/24/2020 12:59:00 PM EDT - 02/24/2020 12:59:00 PM EDT [facility] Outpatient Attender: Yon Cota MD Main office [facility] 01/30/2020 10:00:00 AM EDT [facility] ([facility] [place]patient Att[place] [facility] [place]errer: Kanu Alexandra MDConsultant: MYA SAGASTUME MD 01/22/2020 03:03:00 PM EDT - 01/22/2020 03:03:00 PM EDT [facility] Outpatient Attender: BRONSON LORENZO NP Physical Therapy 03:45:00 PM EDT [facility] ([facility] Outpatient Attender: MYA SAGASTUME MDConsultant: MYA Lind MD 01/14/2020 03:49:00 PM EDT - 01/14/2020 04:49:00 PM EDT [facility] Outpatient Attender: MYA SAGASTUME MDConsultant: MYA Lind MD 01/13/2020 03:02:00 PM EDT - 01/13/2020 03:02:00 PM EDT [facility] Emergency Attender: GODWIN GABRIEL DOConsultant: MYA Lind MD 01/11/2020 12:57:00 PM EDT - 01/11/2020 04:36:00 PM EDT [facility] Patient discharged. Outpatient Attender: MYA SAGASTUME MDConsultant: MYA Lind MD 01/06/2020 01:26:00 PM EDT - 01/06/2020 01:26:00 PM EDT [facility] Emergency Attender: JULEE ANTUNEZ MDConsultant: MYA SAGASTUME MD 12/26/2019 09:47:00 PM EDT - 12/26/2019 11:36:00 PM EDT [facility] Patient discharged. Outpatient Attender: MYA SAGASTUME MDConsultant: MYA Lind MD 12/10/2019 02:09:00 PM EDT - 12/10/2019 02:09:00 PM EDT [facility] Immunizations Vaccine Date Status Description Data Source(s) COVID-19 VACCINE Moderna 11/05/2020 12:00:00 AM EDT completed [facility] Vaccine Series Complete: YESThis Data wa s Submitted to [facility] Via [facility]. COVID-19 VACCINE Moderna 10/08/2020 12:00:00 AM EDT completed [facility] Vaccine Series Complete: NOThis Data was Submitted to [facility] Via [employer]. New in 2011. IIV4 02/24/2020 01:40:00 PM EDT completed [facility] ([facility]) Medications Medication Brand Name Start Date Product Form Dose Route Admi nistrative Instructions Pharmacy Instructions Status Indications Reaction Description Data Source(s) Metronidazole 500 MG Oral Tablet Metronidazole 03/01/2021 12:00:00 AM EDT ORAL active [facility] ([facility]) Fluconazole 150 MG Oral Tablet Fluconazole 03/01/2021 12:00:00 AM EDT ORAL active [facility] ([facility]) Ciprofloxacin 250 MG Oral Tablet [Cipro] Cipro 02/18/2021 12:00: 00 AM EDT ORAL active [facility] ([facility]) Emgality Emgality 02/17/2021 12:00:00 AM EDT activ e [facility] ([facility]) Fluconazole 150 MG Oral Tablet Fluconazole 02/17/2021 12:00:00 AM EDT ORAL active [facility] ([facility]) Vitamin B 12 1 MG Oral Tablet Vitamin B-12 01/04/2021 12:00:00 AM EDT ORAL active [facility] ([facility]) rizatriptan 10 MG Disintegrating Oral Tablet Rizatriptan Alfredo zoate 10/15/2020 12:00:00 AM EDT completed [facility] ([facility]) rizatriptan 10 MG Disintegrating Oral Tablet Rizatriptan Alfredo zoate 10/15/2020 12:00:00 AM EDT active M [facility]ENT ([facility]) tizanidine 4 MG Oral Tablet Tizanidine HCL 10/06/2020 12:00:00 AM EDT ORAL completed [facility] ([facility]) Naproxen 500 MG Oral Tablet Naproxen 10/06/2020 12:00:00 AM EDT ORAL completed [facility] ([facility]) Ketorolac (Toradol) Inj 30MG/ML 10/03/2020 12:00:00 AM EDT completed [facility] ([facility]) Medication administered onsite Ketorolac (Toradol) Inj 30MG/ML 09/12/2020 12:00:00 AM EDT completed [facility] ([facility]) Medication administered onsite Pseudoephedrine Hydrochloride 60 MG Oral Tablet Pseudoephedr ine HCL 06/30/2020 12:00:00 AM EST ORAL completed [facility] ([facility]) Aimovig Aimovig 06/11/2020 12:00:00 AM EST active [facility] ([facility]) Vraylar Roberto 05/23/2020 12:00:00 AM EST ORAL active [facility] ([facility]) Ibuprofen 800 MG Oral Tablet Ibuprofen 05/22/2020 12:00:00 AM EST active [facility] ([facility]) [place] Carbonate 600 MG Oral Capsule [place] Carbonate 12:00:00 AM EST ORAL active [facility] ([facility]) [place] Carbonate 150 MG Oral Capsule [place] Carbonate 12:00:00 AM EST ORAL active [facility] ([facility]) rizatriptan 10 MG Disintegrating Oral Tablet [Maxalt] Maxalt -CHARGE AUTHORIZER 05/17/2020 12:00:00 AM EST ORAL completed [facility] ([facility]) 24 HR Nicotine 0.583 MG/HR Transdermal Patch Nicotine 05/06/2020 12:00:00 AM EST completed [facility] ([facility]) Ofloxacin 3 MG/ML Ophthalmic Solution Ofloxacin (Ophthalmic) 03/08/2020 12:00:00 AM EDT completed [facility] ([facility]) Ergocalciferol 66131 UNT Oral Capsule Vitamin D (Ergocalcife rol) 02/24/2020 12:00:00 AM EDT ORAL active M [facility] ([facility]) montelukast 10 MG Oral Tablet Montelukast Sodium 02/24/2020 12:00:00 AM EDT ORAL active [facility] ([facility]) Flonase Allergy Relief Flonase Allergy Relief 02/24/2020 12:00:00 AM EDT NASAL active [facility] ([facility]) Ibuprofen 800 MG Oral Tablet Ibuprofen 01/30/2020 12:00:00 AM EDT ORAL active [facility] ([facility]) Amitriptyline Hydrochloride 10 MG Oral Tablet Amitriptyline HCL 01/30/2020 12:00:00 AM EDT ORAL completed [facility] ([facility]) Fluconazole 150 MG Oral Tablet Fluconazole 01/13/2020 12:00:00 AM EDT ORAL completed [facility] ([facility]) Escitalopram 10 MG Oral Tablet [Lexapro] Lexapro 01/13/2020 12:00: 00 AM EDT ORAL completed [facility] ([facility]) Sumatriptan Succinate Sumatriptan Succinate 01/06/2020 12:00:00 AM EDT completed [facility] ([facility]) 24 HR Propranolol Hydrochloride 60 MG Extended Release Oral Capsule Propranolol HCL ER 01/06/2020 12:00:00 AM EDT ORAL completed [facility] ([facility]) Loratadine 10 MG Oral Tablet [Claritin] Claritin 01/06/2020 12:00:0 0 AM EDT ORAL completed [facility] ([facility]) Insurance Providers Payer name Policy type / Coverage type Policy ID Covered alliance party ID Covered alliance party's relationship to mosley Policy Mosley Plan Information Medicaid Dental S [id number] [facility] I [id number] Self [id number] [facility] Medigap Part B [id number] Self [facility] [id number] [facility] Health Maintenance Organization (HMO) [id number] Self [employer] COMM[facility]ITY [facility] MCDHMO [id number] SP [id number] [employer] COMMUNITY PLAN MCDHMO [id number] [place] [id number] [place] [id number] SP [id number] [place] [id number] SP [id number] [facility] COMMUNITY PLAN MCDHMO [id number] SP [id number] SELF PAY ONLY [id number] SP [id number] [facility] COMMUNITY PLAN [place] [id number] 18 [id number] UNHC AMERICHOICE XIX -HMO [id number] 18 [id number] [facility] COMMUNITY [facility]AN MCDHMO [id number] SP [id number] [facility] COMMUNTY PLAN MC [id number] 18 [id number] UN COMMUNITY PLAN XIX MC [id number] 18 [id number] [facility] [id number] SP [id number] MEDICAID [id number] SP [id number] [employer] COMMUNITY PLAN MCDHMO [id number] SP [id number] [employer] COMMUNITY PLAN MCDHMO [id number] SP [id number] [facility] Community Plan Commercial [id number] Self [id number] [facility] Community Plan Commercial [id number] Self [id number] [facility] Communty Plan Medicaid [id number] Self [id number] [facility] Health Maintenance Organization (HMO) [id number] Self [id number] [facility] Community Plan Commercial [id number] Self [id number] [facility] Communty Plan Medicaid [id number] Self [id number] [facility] Community Plan Commercial [id number] Self [id number] [facility] Communty Plan Medicaid [id number] 0.6939.0 Self [id number] [facility] Community Plan Commercial [id number] Self [id number] [facility] Communty Plan Medicaid [id number] 0.6939.0 Self [id number] [facility] Community Plan Commercial [id number] Self [id number] [facility] Communty Plan Medicaid [id number] 0.6939.0 Self [id number] [facility] Community Plan Commercial [id number] Self [id number] [facility] COMMUNITY PLAN [id number] 18 [id number] [facility] Community Plan Commercial [id number] Self [id number] [facility] Communty Plan Medicaid [id number] 0.6939.0 Self [id number] [facility] Community Plan Commercial [id number] .[id number] Self [id number] [facility] Communty Plan Medicaid [id number] 0.6939.0 Self [id number] [facility] Community Plan Commercial [id number] Self [id number] [facility] Community Plan Commercial [id number] 2.16.840.1 .[id number] Self [id number] [facility] Communty Plan Medicaid [id number] 0.6939.0 Self [id number] [facility] Community Plan Commercial [id number] .[id number] Self [id number] [facility] Communty Plan Medicaid [id number] 0.6939.0 Self [id number] [facility] Communty Plan Medicaid [id number] 0.6939.0 Self [id number] [facility] Community Plan Commercial [id number] .[id number] Self [id number] [id number] 18 [id number] [facility] O [id number] S [id number] [facility] Communty Plan Medicaid [id number] 0.6939.0 Self [id number] Medicaid Commercial [id number] Self [id number] MEDICAID -PHYSICIAN [id number] MEDICAID -O/P EMERGENCY ROOM [id number] [facility] [place] [id number] 18 [id number] SELF PAY ONLY UNAVAILABLE SP UNAV AILABLE [facility] Community Plan Medicaid [id number] Self [id number] [facility](MCAID) O [id number] S [id number] [facility] HEA [id number] S [id number] [facility](MCAID) O [id number] S [id number] [facility] Health Maintenance Organization (HMO) [id number] Family Dependent [employer] AMERICHOICE XIX -HMO [id number] 18 [id number] [facility] [place] [id number] 10 [id number] [facility](MCAID) O [id number] S [id number] D Managed Care [facility] P [id number] S [id number] [facility] Health Maintenance Organization (HMO) [id number] Self UNHC AMERICHOICE XIX -HMO [id number] 18 [id number] D Managed Care [facility] P UNAVAILABLE S UNAVAILABLE Medicaid Dental S UNAVAILABLE S UN AVAILABLE [facility] [id number] SP [id number] [facility] NATALYA [id number] SP [id number] MEDICAID [id number] SP [id number] HMO BLUE [id number] SP [id number] HMO BLUE [id number] SP [id number] [facility] [id number] 2 [id number] MEDICAID [id number] SP [id number] [facility] [id number] SP [id number] [facility] COMMUNITY PLAN MCDO [id number] SP [id number] [facility] [id number] SP [id number] [facility] COMMUNITY PLAN MCDHMO [id number] SP [id number] [facility] COMMUNITY PLAN [place] [id number] 18 [id number] [facility] COMMUNTY PLAN [id number] 18 [id number] [facility] COMMUNITY PLAN XIX [id number] 18 [id number] UNHC AMERICHOICE XIX -HMO [id number] 18 [id number] [facility] COMMUNITY PLAN MCDO [id number] Problems, Conditions, and Diagnoses Code Display Name Description Problem Type Effective Dates Data Source(s) F1220 Cannabis dependence, uncomplicated Cannabis depe ndence, uncomplicated Diagnosis 03/10/2021 03:07:00 PM EDT [facility] F3160 Bipolar disorder, current episode mixed, unspecified Bipolar disorder, current episode mixed, unspecified Diagnosis 03/10/2021 03:07:00 PM ED T [facility] Z5320 Procedure and treatment not carried out because of patient's decision for unspecified reasons Procedure and treatment not carried out because of patient's decision for unspecified reasons Diagnosis 02/22/2021 07:44:00 AM EDT [facility] B51220 Nicotine dependence, cigarettes, uncompl icated Nicotine dependence, cigarettes, uncomplicated Diagnosis 02/22/2021 07:44:00 AM EDT [facility] J029 Acute pharyngitis, unspecified Acute pharyngitis, unsp ecified Diagnosis 02/22/2021 07:44:00 AM EDT [facility] Z113 Encounter for screening for infections with a predominantly sexual mode of transmission Encounter for screening for infections w ith a predominantly sexual mode of transmission Diagnosis 02/17/2021 01:50:00 PM EDT [facility] B373 Candidiasis of vulva and vagina Candidiasis of vulva a nd vagina Diagnosis 02/17/2021 01:50:00 PM EDT [facility] D519 Vitamin B12 deficiency anemia, unspecifi ed Vitamin B12 deficiency anemia, unspecified Diagnosis 02/17/2021 01:23:00 PM EDT [facility] E559 Vitamin D deficiency, unspecified Vitamin D defi ciency, unspecified Diagnosis 02/17/2021 01:23:00 PM EDT [facility] J24642 Migraine without aura, not intractable, without status migrainosus Migraine without aura, not intractable, without status migrainosus Diagnosis 02/17/2021 01:23:00 PM EDT [facility] 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, in remission Alcohol abuse, in remissio n Diagnosis 02/10/2021 09:42:00 AM EDT [facility] J069 Acute upper respiratory infection, unspe cified Acute upper respiratory infection, unspecified Diagnosis 01/29/2021 02:00:00 PM EDT [facility] Z1152 ENCOUNTER FOR SCREENING FOR COVID-19 ENCOUNTER F OR SCREENING FOR COVID-19 Diagnosis 01/24/2021 02:13:00 PM EDT [facility] E611 Iron deficiency Iron deficiency Diagnosis 11/17/2020 12:5 9:00 PM EDT [facility] J309 Allergic rhinitis, unspecified Allergic rhinitis, unsp ecified Diagnosis 11/17/2020 12:59:00 PM EDT [facility] D693 Immune thrombocytopenic purpura Immune thrombocytopeni c purpura Diagnosis 11/17/2020 12:59:00 PM EDT [facility] R946 Abnormal results of thyroid function bobby dies Abnormal results of thyroid function studies Diagnosis 11/09/2020 12:33:00 PM EDT [facility] A05608 Muscle spasm of back Muscle spasm of back Diagnosis 10/06/2020 01:50:00 PM EDT [facility] R05 Cough Cough Diagnosis 09/25/2020 02:36:00 PM ED T [facility] F1120 Opioid dependence, uncomplicated Opioid dependen ce, uncomplicated Diagnosis 08/11/2020 02:58:00 PM [facility] C63152 Other nursing home (current) drug therapy 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 Diagnosis 07/29/2020 02:56:00 PM [facility] 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 Diagnosis 07/01/2020 02:50:00 PM [facility] 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 duct Diagnosis 06/30/2020 10:56:00 AM [facility] U13776 Migraine with aura, not intractable, wit hout status migrainosus Migraine with aura, not intractable, without status migrainosus Diagnosis 06/15/2020 09:21:00 AM [facility] E0590 Thyrotoxicosis, unspecified without thyr otoxic crisis or storm Thyrotoxicosis, unspecified without thyrotoxic crisis or storm Diagnosis 05/14/2020 02:57:00 PM [facility] F609 Personality disorder, unspecified Personality di sorder, unspecified Diagnosis 05/14/2020 02:57:00 PM [facility] F42128 Other mucopurulent conjunctivitis, bilat eral Other mucopurulent conjunctivitis, bilateral Diagnosis 03/08/2020 01:52:00 PM EDT [facility] Z23 Encounter for immunization Encounter for immunization Diagnosis 02/24/2020 12:59:00 PM EDT [facility] D649 Anemia, unspecified Anemia, unspecified Diagnosis 0 02/24/2020 12:59:00 PM EDT [facility] F339 Major depressive disorder, recurrent, un specified Major depressive disorder, recurrent, unspecified Diagnosis 02/24/2020 12:59:00 PM EDT [facility] Z711 Person with feared health complaint in w shruthi no diagnosis is made Person with feared health complaint in whom no diagnosis is made Diagnosis 01/22/2020 03:03:00 PM EDT [facility] D51.9 Cobalamin deficiency Cobalamin deficiency Problem 02/17/2021 12:00:00 AM EDT [facility] ([facility]) G43.009 Migraine without aura, not refractory Mi graine without aura, not refractory Problem 11/17/2020 12:00:00 AM EDT [facility] ([facility]) J30.9 Allergic rhinitis Allergic rhinitis Problem 11/17/2020 12:00:00 AM EDT [facility] ([facility]) F12.20 Cannabis dependence, uncomplicated Cannabis depe ndence, uncomplicated Problem 04/01/2020 12:00:00 AM EDT [facility] ([facility]) F60.9 Personality disorder Personality disorder Problem 04/01/2020 12:00:00 AM EDT [facility] ([facility]) [id number] Cervico-occipital neuralgia Cervico-occipital neuralgi a Problem 01/30/2020 12:00:00 AM EDT [facility] ([facility]) [id number] Neck pain Neck pain Problem 01/30/2020 12:00:00 AM ED T [facility] ([facility]) [id number] Disorders of initiating and maintaining sleep Disorders of initiating and maintaining sleep Problem 01/30/2020 12:00:00 AM EDT [facility] ([facility]) [id number] Chronic tension-type headache Chronic tension-type hea dache Problem 01/30/2020 12:00:00 AM EDT [facility] ([facility]) [id number] Chronic intractable migraine without aur a Chronic intractable migraine without aura Problem 01/30/2020 12:00:00 AM EDT [facility] ([facility]) Surgeries/Procedures Procedure Description Date Indications Data Source(s) Brief Emotional/Behav Assessment W/ Scoring Doc Per Standard Inst 02/17/2021 12:00:00 AM EDT [facility] ([facility]) Admin Patient Focused Health Risk Assessment Instrument 02/17/2021 12:00:00 AM EDT [facility] ([facility]) OFFICE OUTPATIENT NEW 30 MINUTES 02/17/2021 12:00:00 A M EDT [facility] ([facility]) OFFICE OUTPATIENT VISIT 15 MINUTES 02/17/2021 12:00:00 AM EDT [facility] ([facility]) OFFICE OUTPATIENT VISIT 25 MINUTES 02/10/2021 12:00:00 AM EDT [facility] ([facility]) OFFICE OUTPATIENT NEW 10 MINUTES 01/29/2021 12:00:00 A M EDT [facility] ([facility]) Pulse Oximetry Single Determination 01/24/2021 12:00:0 0 AM EDT [facility] ([facility]) OFFICE OUTPATIENT VISIT 15 MINUTES 01/24/2021 12:00:00 AM EDT [facility] ([facility]) OFFICE OUTPATIENT VISIT 15 MINUTES 11/17/2020 12:00:00 AM EDT [facility] ([facility]) OFFICE OUTPATIENT VISIT 15 MINUTES 11/12/2020 12:00:00 AM EDT [facility] ([facility]) OFFICE OUTPATIENT VISIT 25 MINUTES 11/09/2020 12:00:00 AM EDT [facility] ([facility]) OFFICE OUTPATIENT VISIT 15 MINUTES 10/06/2020 12:00:00 AM EDT [facility] ([facility]) OFFICE OUTPATIENT VISIT 15 MINUTES 10/03/2020 12:00:00 AM EDT [facility] ([facility]) OFFICE OUTPATIENT VISIT 15 MINUTES 09/25/2020 12:00:00 AM EDT [facility] ([facility]) OFFICE OUTPATIENT NEW 10 MINUTES 09/12/2020 12:00:00 A M EDT [facility] ([facility]) OFFICE OUTPATIENT VISIT 25 MINUTES 08/07/2020 12:00:00 AM EST [facility] ([facility]) Psychiatric Diag Eval W/Medical Service 07/07/2020 12: 00:00 AM EST [facility] ([facility]) OFFICE OUTPATIENT VISIT 25 MINUTES 05/22/2020 12:00:00 AM EST [facility] ([facility]) Psychiatric Diagnostic Evaluation 04/01/2020 12:00:00 AM EDT [facility] ([facility]) Injection, Single Or Multiple trigger points one or two musc les 03/04/2020 12:00:00 AM EDT [facility] ([facility]) INJECTION ANES OTHER PERIPHERAL NERVE/BRANCH 0 12:00:00 AM EDT [facility] ([facility]) Psychiatric Diagnostic Evaluation 01/22/2020 12:00:00 AM EDT [facility] ([facility]) Results ID Date Data Source [id number] 03/12/2021 02:29:00 PM EDT [facility] Name Value Range Interpretation Code Description Data Kayleen rce(s) Supporting Document(s) SARS coronavirus 2 RNA [Presence] in Res piratory specimen by TRACEY with probe detection NEGATIVE [facility] This lab was ordered by [facility] a nd reported by [facility]. ID Date Data Source [id number] 03/12/2021 02:29:00 PM EDT [facility] ([facility]) Name Value Range Interpretation Code Description Data Kayleen rce(s) Supporting Document(s) Red Blood Count 4.67 10 4.00-5.40 Normal (applies to non-numeric results) [facility] ([facility]) White Blood Count 17.0 10 4.0-10.0 Above high normal [facility] ([facility]) Hematocrit 44.1 % 36.0-47.0 Normal (applies to non-numeric resul ts) [facility] ([facility]) Hemoglobin 14.4 g/dL 12.0-15.5 Normal (applies to non-numeric resul ts) [facility]) Mean Corpuscular Volume 94.4 fl 80.0-96.0 Normal ( applies to non-numeric results) [facility]) Mean Corpuscular HGB Conc 32.7 g/dL 32.0-36.5 Normal (applies to non-numeric results) [facility]) Mean Corpuscular Hemoglobin 30.8 pg 27.0-33.0 Norm al (applies to non-numeric results) [facility] ([facility]) Red Cell Distribution Width 13.5 % 11.5-14.5 Norm al (applies to non-numeric results) [facility] ([facility]) Platelet Count, Automated 356 10 150-450 Normal (applies to non-numeric results) [facility] ([facility]) Nucleated Red Blood Cell % 0.0 % 0-0 Normal (applies to n on-numeric results) [facility] ([facility]) ID Date Data Source [id number] 03/12/2021 02:29:00 PM EDT [facility] ([facility]) Name Value Range Interpretation Code Description Data Kayleen rce(s) Supporting Document(s) Ethanol [Mass/volume] in Serum or Plasma Laboratory test result 0.000-0.010 Normal (applies to non-numeric results) [facility] ([facility]) <content>note:<nlbl:demographic_changed> </content>
<content></content> Salicylates [Mass/volume] in Serum or Plasma 5.4 mg/dL 5.0 -30.0 Normal (applies to non-numeric results) [facility] ([facility]) <content>note:<nlbl:demographic_changed> </content>
<content></content> Acetaminophen [Mass/volume] in Serum or Plasma Laboratory test r esult 10.0-30.0 Below low normal [facility] ([facility]) <content>note:<nlbl:demographic_changed> </content>
<content></content> Thyrotropin [Units/volume] in Serum or Plasma 0.283 uIU/ML 0. 358-3.740 Below low normal [facility] ([facility]) <content>note:<nlbl:demographic_changed> </content>
<content></content> Choriogonadotropin.beta subunit ( test) [Pres ence] in Serum or Plasma Laboratory test result Normal (applies to non-numeric results) [facility] ([facility]) <content>note:<nlbl:demographic_changed> </content>
<content></content> ID Date Data Source [id number] 03/12/2021 02:29:00 PM EDT [facility] ([facility]) Name Value Range Interpretation Code Description Data Kayleen rce(s) Supporting Document(s) Blood Urea Nitrogen 18 mg/dL 7-18 Normal (applies to non-nume javier results) [facility] ([facility]) Glucose, Fasting 96 mg/dL 70-100 Normal (applies to non-numeric results) [facility] ([facility]) Glomerular Filtration Rate Laboratory test result Normal (applies to non- numeric results) [facility] ([facility]) <content>Units are mL/min/1.73 m2</content>
<content></content>
<content>Chronic Kidney Disease Staging per NKF:</content>
<content></content>
<content>Stage I & II GFR >=60 Normal to Mildly Decreased</content>
<content>Stage III GFR 30- 59 Moderately Decreased</content>
<content>Stage IV GFR 15-29 Severely Decreased</content>
<content>Stage V GFR <15 Very Little GFR Left</content>
<content>ESRD GFR <15 on ASSISTANT PROGRAM DIRECTOR</content>
<content></content> Creatinine For GFR 1.05 mg/dL 0.55-1.30 Normal (applies to non -numeric results) [facility] ([facility]) Potassium Serum 3.8 meq/L 3.5-5.1 Normal (applies to non-numeric results) [facility] ([facility]) Sodium Level 141 meq/L 136-145 Normal (applies to non-numeric res ults) [facility] ([facility]) Chloride Level 107 meq/L 98-107 Normal (applies to non-numeric r esults) [facility] ([facility]) Carbon Dioxide Level 26 meq/L 21-32 Normal (applies to non-num davida results) [facility] ([facility]) Anion Gap 8 meq/L 8-16 Normal (applies to non-numeric resul ts) [facility] ([facility]) Calcium Level 10.2 mg/dL 8.5-10.1 Above high normal [facility] ([facility]) ID Date Data Source [id number] 03/12/2021 02:29:00 PM EDT [facility] ([facility]) Name Value Range Interpretation Code Description Data Kayleen rce(s) Supporting Document(s) Alt/SGPT 23 U/L 12-78 Normal (applies to non-numeric resul ts) [facility] ([facility]) Ast/Sgot 19 U/L 7-37 Normal (applies to non-numeric resul ts) [facility] ([facility]) Bilirubin,Total 0.7 mg/dL 0.2-1.0 Normal (applies to non-numeric results) [facility] ([facility]) Alkaline Phosphatase 83 U/L 45-117 Normal (applies to non-num davida results) [facility] ([facility]) Bilirubin,Direct 0.2 mg/dL 0.0-0.2 Normal (applies to non-numeric results) [facility] ([facility]) Albumin/Globulin Ratio 1.2 1.2-2.2 Normal (applies to non-n umeric results) [facility] ([facility]) Albumin 4.4 GM/DL 3.2-5.2 Normal (applies to non-numeric resul ts) [facility] ([facility]) Total Protein 8.1 GM/DL 6.4-8.2 Normal (applies to non-numeric re sults) [facility] ([facility]) ID Date Data Source [id number] 03/12/2021 02:29:00 PM EDT [facility] ([facility]) Name Value Range Interpretation Code Description Data Kayleen rce(s) Supporting Document(s) [place] [Mass/volume] in Serum or Plasma 0.34 meq/L 0.60-1.20 Below low normal [facility] ([facility]) <content>note:<nlbl:demographic_changed> </content>
<content></content> ID Date Data Source [id number] 03/12/2021 02:29:00 PM EDT [facility] ([facility]) Name Value Range Interpretation Code Description Data Kayleen rce(s) Supporting Document(s) Influenza A Amplification Laboratory test result Normal (applies to non- numeric results) [facility] ([facility]) Negative results do not preclude influen za or RSV virus infection and should not be used as the sole basis for treatment or other patient management decisions. Influenza B Amplification Laboratory test result Normal (applies to non- numeric results) [facility] ([facility]) Negative results do not preclude influen za or RSV virus infection and should not be used as the sole basis for treatment or other patient management decisions. RSV Amplification Laboratory test result Normal (applies to non-numeric results) [facility] ([facility]) Negative results do not preclude influen za or RSV virus infection and should not be used as the sole basis for treatment or other patient management decisions. Laboratory test finding (navigational concept) Laboratory test r esult Normal (applies to non-numeric results) [facility] ([facility]) A false negative result may occur if a s pecimen is improperly collected, transported or handled. False [...] pathogens. DISCLAIMER: Testing was performed using the [employer] SARS-CoV-2 test. This test was developed and its performance characteristics determined by [employer]. This test has not been FDA cleared [...] the authorization is terminated or revoked sooner. ID Date Data Source [id number] 03/12/2021 01:36:00 PM EDT [facility] ([facility]) Name Value Range Interpretation Code Description Data Kayleen rce(s) Supporting Document(s) Barbiturates Urine Laboratory test result Normal (applies to non-numeric results) [facility] ([facility]) Amphetamines Level Urine Laboratory test result Normal (applies to non-numeric results) [facility] ([facility]) Benzodiazepines Urine Laboratory test result [place] (applies to non-numeric results) [facility] ([facility]) Cannabinoids Urine Laboratory test result Above high cristine l [facility] ([facility]) Cocaine Metabolite Urine Laboratory test result Above high normal [facility] ([facility]) Methadone Urine Laboratory test result Normal (a pplies to non-numeric results) [facility] ([facility]) Opiates Urine Laboratory test result Normal (applies t o non-numeric results) [facility] ([facility]) Phencyclidine Urine Laboratory test result Cristine l (applies to non-numeric results) [facility] ([facility]) ALL PRESUMPTIVE POSITIVE FINDINGS AR E UNCONFIRMED THRESHOLD IN NG/ML AMPHETAMINES/METHAMPHET 1000 BARBITURATES [...] CLOSELY RELATED COMPOUNDS PLEASE CALL THE LAB. ID Date Data Source [id number] 02/26/2021 01:24:00 PM EDT [facility] ([facility]) Name Value Range Interpretation Code Description Data Kayleen rce(s) Supporting Document(s) Cobalamin (Vitamin B12) [Mass/volume] in Serum or Plasma 353 pg/mL 2 32-1245 [facility] ([facility]) .~.~<DG1.3.1>D51.9</DG1.3.1><DG1.3.1>D51.9</DG1.3.1><DG1.3.1>E55.9</DG1.3.1><DG1 .3.1 Is patient fasting? N~.~.~<DG1.3.1>D51.9</DG1.3.1><DG1.3.1>D51.9</DG1.3.1><DG1.3.1>E55.9</DG1.3. .~.~<DG1.3.1> D51.9</DG1.3.1><DG1.3.1>D51.9</DG1.3.1><DG1.3.1>E55.9</DG1.3.1><DG1.3.1 .~.~<DG1.3.1>D51.9</DG1.3.1><DG1.3.1>D51.9</DG1.3.1><DG1.3.1>E55.9</DG1.3.1><DG1 .3.1 .~.~<DG1.3.1>D51.9</DG1.3.1><DG1.3.1> D51.9</DG1.3.1><DG1.3.1>E55.9</DG1.3.1><DG1.3.1 ID Date Data Source [id number] 02/26/2021 01:24:00 PM EDT [facility] ([facility]) Name Value Range Interpretation Code Description Data Kayleen rce(s) Supporting Document(s) CBC W/Automated Diff Laboratory test result [facility] ([facility]) COMPLETE BLOOD COUNT WBC 12.6 10^3/uL 4.2-11.0 Above high normal [facility] ([facility]) .~.~<DG1.3.1>D51.9</DG1.3.1><DG1.3.1>D51.9</DG1.3.1><DG1.3.1>E55.9</DG1.3.1><DG1 .3.1 Is patient fasting? N~.~.~<DG1.3.1>D51.9</DG1.3.1><DG1.3.1>D51.9</DG1.3.1><DG1.3.1>E55.9</DG1.3. .~.~<DG1.3.1> D51.9</DG1.3.1><DG1.3.1>D51.9</DG1.3.1><DG1.3.1>E55.9</DG1.3.1><DG1.3.1 .~.~<DG1.3.1>D51.9</DG1.3.1><DG1.3.1>D51.9</DG1.3.1><DG1.3.1>E55.9</DG1.3.1><DG1 .3.1 .~.~<DG1.3.1>D51.9</DG1.3.1><DG1.3.1> D51.9</DG1.3.1><DG1.3.1>E55.9</DG1.3.1><DG1.3.1 RBC 4.44 10^6/uL 4.20-5.40 [facility] ([facility]) .~.~<DG1.3.1>D51.9</DG1.3.1><DG1.3.1>D51.9</DG1.3.1><DG1.3.1>E55.9</DG1.3.1><DG1 .3.1 Is patient fasting? N~.~.~<DG1.3.1>D51.9</DG1.3.1><DG1.3.1>D51.9</DG1.3.1><DG1.3.1>E55.9</DG1.3. .~.~<DG1.3.1> D51.9</DG1.3.1><DG1.3.1>D51.9</DG1.3.1><DG1.3.1>E55.9</DG1.3.1><DG1.3.1 .~.~<DG1.3.1>D51.9</DG1.3.1><DG1.3.1>D51.9</DG1.3.1><DG1.3.1>E55.9</DG1.3.1><DG1 .3.1 .~.~<DG1.3.1>D51.9</DG1.3.1><DG1.3.1> D51.9</DG1.3.1><DG1.3.1>E55.9</DG1.3.1><DG1.3.1 Hemoglobin 14.0 g/dL 12.0-16.[address] [facility]) .~.~<DG1.3.1>D51.9</DG1.3.1><DG1.3.1>D51.9</DG1.3.1><DG1.3.1>E55.9</DG1.3.1><DG1 .3.1 Is patient fasting? N~.~.~<DG1.3.1>D51.9</DG1.3.1><DG1.3.1>D51.9</DG1.3.1><DG1.3.1>E55.9</DG1.3. .~.~<DG1.3.1> D51.9</DG1.3.1><DG1.3.1>D51.9</DG1.3.1><DG1.3.1>E55.9</DG1.3.1><DG1.3.1 .~.~<DG1.3.1>D51.9</DG1.3.1><DG1.3.1>D51.9</DG1.3.1><DG1.3.1>E55.9</DG1.3.1><DG1 .3.1 .~.~<DG1.3.1>D51.9</DG1.3.1><DG1.3.1> D51.9</DG1.3.1><DG1.3.1>E55.9</DG1.3.1><DG1.3.1 Hematocrit 41.6 % 37.0-47.0 [facility] ([facility]) .~.~<DG1.3.1>D51.9</DG1.3.1><DG1.3.1>D51.9</DG1.3.1><DG1.3.1>E55.9</DG1.3.1><DG1 .3.1 Is patient fasting? N~.~.~<DG1.3.1>D51.9</DG1.3.1><DG1.3.1>D51.9</DG1.3.1><DG1.3.1>E55.9</DG1.3. .~.~<DG1.3.1> D51.9</DG1.3.1><DG1.3.1>D51.9</DG1.3.1><DG1.3.1>E55.9</DG1.3.1><DG1.3.1 .~.~<DG1.3.1>D51.9</DG1.3.1><DG1.3.1>D51.9</DG1.3.1><DG1.3.1>E55.9</DG1.3.1><DG1 .3.1 .~.~<DG1.3.1>D51.9</DG1.3.1><DG1.3.1> D51.9</DG1.3.1><DG1.3.1>E55.9</DG1.3.1><DG1.3.1 MCV 93.7 fL 81.0-101 [facility] ([facility]) .~.~<DG1.3.1>D51.9</DG1.3.1><DG1.3.1>D51.9</DG1.3.1><DG1.3.1>E55.9</DG1.3.1><DG1 .3.1 Is patient fasting? N~.~.~<DG1.3.1>D51.9</DG1.3.1><DG1.3.1>D51.9</DG1.3.1><DG1.3.1>E55.9</DG1.3. .~.~<DG1.3.1> D51.9</DG1.3.1><DG1.3.1>D51.9</DG1.3.1><DG1.3.1>E55.9</DG1.3.1><DG1.3.1 .~.~<DG1.3.1>D51.9</DG1.3.1><DG1.3.1>D51.9</DG1.3.1><DG1.3.1>E55.9</DG1.3.1><DG1 .3.1 .~.~<DG1.3.1>D51.9</DG1.3.1><DG1.3.1> D51.9</DG1.3.1><DG1.3.1>E55.9</DG1.3.1><DG1.3.1 MCH 31.5 pg 27.0-34.0 [facility] ([facility]) .~.~<DG1.3.1>D51.9</DG1.3.1><DG1.3.1>D51.9</DG1.3.1><DG1.3.1>E55.9</DG1.3.1><DG1 .3.1 Is patient fasting? N~.~.~<DG1.3.1>D51.9</DG1.3.1><DG1.3.1>D51.9</DG1.3.1><DG1.3.1>E55.9</DG1.3. .~.~<DG1.3.1> D51.9</DG1.3.1><DG1.3.1>D51.9</DG1.3.1><DG1.3.1>E55.9</DG1.3.1><DG1.3.1 .~.~<DG1.3.1>D51.9</DG1.3.1><DG1.3.1>D51.9</DG1.3.1><DG1.3.1>E55.9</DG1.3.1><DG1 .3.1 .~.~<DG1.3.1>D51.9</DG1.3.1><DG1.3.1> D51.9</DG1.3.1><DG1.3.1>E55.9</DG1.3.1><DG1.3.1 MCHC 33.7 g/dL 31.0-36.0 [facility] ([facility]) .~.~<DG1.3.1>D51.9</DG1.3.1><DG1.3.1>D51.9</DG1.3.1><DG1.3.1>E55.9</DG1.3.1><DG1 .3.1 Is patient fasting? N~.~.~<DG1.3.1>D51.9</DG1.3.1><DG1.3.1>D51.9</DG1.3.1><DG1.3.1>E55.9</DG1.3. .~.~<DG1.3.1> D51.9</DG1.3.1><DG1.3.1>D51.9</DG1.3.1><DG1.3.1>E55.9</DG1.3.1><DG1.3.1 .~.~<DG1.3.1>D51.9</DG1.3.1><DG1.3.1>D51.9</DG1.3.1><DG1.3.1>E55.9</DG1.3.1><DG1 .3.1 .~.~<DG1.3.1>D51.9</DG1.3.1><DG1.3.1> D51.9</DG1.3.1><DG1.3.1>E55.9</DG1.3.1><DG1.3.1 RDW 13.9 % 11.5-14.5 [facility] ([facility]) .~.~<DG1.3.1>D51.9</DG1.3.1><DG1.3.1>D51.9</DG1.3.1><DG1.3.1>E55.9</DG1.3.1><DG1 .3.1 Is patient fasting? N~.~.~<DG1.3.1>D51.9</DG1.3.1><DG1.3.1>D51.9</DG1.3.1><DG1.3.1>E55.9</DG1.3. .~.~<DG1.3.1> D51.9</DG1.3.1><DG1.3.1>D51.9</DG1.3.1><DG1.3.1>E55.9</DG1.3.1><DG1.3.1 .~.~<DG1.3.1>D51.9</DG1.3.1><DG1.3.1>D51.9</DG1.3.1><DG1.3.1>E55.9</DG1.3.1><DG1 .3.1 .~.~<DG1.3.1>D51.9</DG1.3.1><DG1.3.1> D51.9</DG1.3.1><DG1.3.1>E55.9</DG1.3.1><DG1.3.1 Platelets 210 10^3/uL 150-450 [facility] ([facility]) .~.~<DG1.3.1>D51.9</DG1.3.1><DG1.3.1>D51.9</DG1.3.1><DG1.3.1>E55.9</DG1.3.1><DG1 .3.1 Is patient fasting? N~.~.~<DG1.3.1>D51.9</DG1.3.1><DG1.3.1>D51.9</DG1.3.1><DG1.3.1>E55.9</DG1.3. .~.~<DG1.3.1> D51.9</DG1.3.1><DG1.3.1>D51.9</DG1.3.1><DG1.3.1>E55.9</DG1.3.1><DG1.3.1 .~.~<DG1.3.1>D51.9</DG1.3.1><DG1.3.1>D51.9</DG1.3.1><DG1.3.1>E55.9</DG1.3.1><DG1 .3.1 .~.~<DG1.3.1>D51.9</DG1.3.1><DG1.3.1> D51.9</DG1.3.1><DG1.3.1>E55.9</DG1.3.1><DG1.3.1 MPV 9.1 fL 7.4-10.4 [facility] ([facility]) .~.~<DG1.3.1>D51.9</DG1.3.1><DG1.3.1>D51.9</DG1.3.1><DG1.3.1>E55.9</DG1.3.1><DG1 .3.1 Is patient fasting? N~.~.~<DG1.3.1>D51.9</DG1.3.1><DG1.3.1>D51.9</DG1.3.1><DG1.3.1>E55.9</DG1.3. .~.~<DG1.3.1> D51.9</DG1.3.1><DG1.3.1>D51.9</DG1.3.1><DG1.3.1>E55.9</DG1.3.1><DG1.3.1 .~.~<DG1.3.1>D51.9</DG1.3.1><DG1.3.1>D51.9</DG1.3.1><DG1.3.1>E55.9</DG1.3.1><DG1 .3.1 .~.~<DG1.3.1>D51.9</DG1.3.1><DG1.3.1> D51.9</DG1.3.1><DG1.3.1>E55.9</DG1.3.1><DG1.3.1 Lymph 24.8 % 25.0-40.0 Below low normal [facility] ( [facility]) .~.~<DG1.3.1>D51.9</DG1.3.1><DG1.3.1>D51.9</DG1.3.1><DG1.3.1>E55.9</DG1.3.1><DG1 .3.1 Is patient fasting? N~.~.~<DG1.3.1>D51.9</DG1.3.1><DG1.3.1>D51.9</DG1.3.1><DG1.3.1>E55.9</DG1.3. .~.~<DG1.3.1> D51.9</DG1.3.1><DG1.3.1>D51.9</DG1.3.1><DG1.3.1>E55.9</DG1.3.1><DG1.3.1 .~.~<DG1.3.1>D51.9</DG1.3.1><DG1.3.1>D51.9</DG1.3.1><DG1.3.1>E55.9</DG1.3.1><DG1 .3.1 .~.~<DG1.3.1>D51.9</DG1.3.1><DG1.3.1> D51.9</DG1.3.1><DG1.3.1>E55.9</DG1.3.1><DG1.3.1 Neut 66.7 % 37.0-80.0 [facility] ([facility]) .~.~<DG1.3.1>D51.9</DG1.3.1><DG1.3.1>D51.9</DG1.3.1><DG1.3.1>E55.9</DG1.3.1><DG1 .3.1 Is patient fasting? N~.~.~<DG1.3.1>D51.9</DG1.3.1><DG1.3.1>D51.9</DG1.3.1><DG1.3.1>E55.9</DG1.3. .~.~<DG1.3.1> D51.9</DG1.3.1><DG1.3.1>D51.9</DG1.3.1><DG1.3.1>E55.9</DG1.3.1><DG1.3.1 .~.~<DG1.3.1>D51.9</DG1.3.1><DG1.3.1>D51.9</DG1.3.1><DG1.3.1>E55.9</DG1.3.1><DG1 .3.1 .~.~<DG1.3.1>D51.9</DG1.3.1><DG1.3.1> D51.9</DG1.3.1><DG1.3.1>E55.9</DG1.3.1><DG1.3.1 [place] 6.6 % 3.0-8.0 [facility] ([facility]) .~.~<DG1.3.1>D51.9</DG1.3.1><DG1.3.1>D51.9</DG1.3.1><DG1.3.1>E55.9</DG1.3.1><DG1 .3.1 Is patient fasting? N~.~.~<DG1.3.1>D51.9</DG1.3.1><DG1.3.1>D51.9</DG1.3.1><DG1.3.1>E55.9</DG1.3. .~.~<DG1.3.1> D51.9</DG1.3.1><DG1.3.1>D51.9</DG1.3.1><DG1.3.1>E55.9</DG1.3.1><DG1.3.1 .~.~<DG1.3.1>D51.9</DG1.3.1><DG1.3.1>D51.9</DG1.3.1><DG1.3.1>E55.9</DG1.3.1><DG1 .3.1 .~.~<DG1.3.1>D51.9</DG1.3.1><DG1.3.1> D51.9</DG1.3.1><DG1.3.1>E55.9</DG1.3.1><DG1.3.1 Eos 1.4 % 0.0-7.0 [facility] ([facility]) .~.~<DG1.3.1>D51.9</DG1.3.1><DG1.3.1>D51.9</DG1.3.1><DG1.3.1>E55.9</DG1.3.1><DG1 .3.1 Is patient fasting? N~.~.~<DG1.3.1>D51.9</DG1.3.1><DG1.3.1>D51.9</DG1.3.1><DG1.3.1>E55.9</DG1.3. .~.~<DG1.3.1> D51.9</DG1.3.1><DG1.3.1>D51.9</DG1.3.1><DG1.3.1>E55.9</DG1.3.1><DG1.3.1 .~.~<DG1.3.1>D51.9</DG1.3.1><DG1.3.1>D51.9</DG1.3.1><DG1.3.1>E55.9</DG1.3.1><DG1 .3.1 .~.~<DG1.3.1>D51.9</DG1.3.1><DG1.3.1> D51.9</DG1.3.1><DG1.3.1>E55.9</DG1.3.1><DG1.3.1 Baso 0.2 % 0.0-2.5 [facility] ([facility]) .~.~<DG1.3.1>D51.9</DG1.3.1><DG1.3.1>D51.9</DG1.3.1><DG1.3.1>E55.9</DG1.3.1><DG1 .3.1 Is patient fasting? N~.~.~<DG1.3.1>D51.9</DG1.3.1><DG1.3.1>D51.9</DG1.3.1><DG1.3.1>E55.9</DG1.3. .~.~<DG1.3.1> D51.9</DG1.3.1><DG1.3.1>D51.9</DG1.3.1><DG1.3.1>E55.9</DG1.3.1><DG1.3.1 .~.~<DG1.3.1>D51.9</DG1.3.1><DG1.3.1>D51.9</DG1.3.1><DG1.3.1>E55.9</DG1.3.1><DG1 .3.1 .~.~<DG1.3.1>D51.9</DG1.3.1><DG1.3.1> D51.9</DG1.3.1><DG1.3.1>E55.9</DG1.3.1><DG1.3.1 %Ig 0.3 % 0.0-0.0 Above high normal [facility] ([facility]) .~.~<DG1.3.1>D51.9</DG1.3.1><DG1.3.1>D51.9</DG1.3.1><DG1.3.1>E55.9</DG1.3.1><DG1 .3.1 Is patient fasting? N~.~.~<DG1.3.1>D51.9</DG1.3.1><DG1.3.1>D51.9</DG1.3.1><DG1.3.1>E55.9</DG1.3. .~.~<DG1.3.1> D51.9</DG1.3.1><DG1.3.1>D51.9</DG1.3.1><DG1.3.1>E55.9</DG1.3.1><DG1.3.1 .~.~<DG1.3.1>D51.9</DG1.3.1><DG1.3.1>D51.9</DG1.3.1><DG1.3.1>E55.9</DG1.3.1><DG1 .3.1 .~.~<DG1.3.1>D51.9</DG1.3.1><DG1.3.1> D51.9</DG1.3.1><DG1.3.1>E55.9</DG1.3.1><DG1.3.1 %NRBC 0.0 % 0.0-0.0 [facility] ([facility]) .~.~<DG1.3.1>D51.9</DG1.3.1><DG1.3.1>D51.9</DG1.3.1><DG1.3.1>E55.9</DG1.3.1><DG1 .3.1 Is patient fasting? N~.~.~<DG1.3.1>D51.9</DG1.3.1><DG1.3.1>D51.9</DG1.3.1><DG1.3.1>E55.9</DG1.3. .~.~<DG1.3.1> D51.9</DG1.3.1><DG1.3.1>D51.9</DG1.3.1><DG1.3.1>E55.9</DG1.3.1><DG1.3.1 .~.~<DG1.3.1>D51.9</DG1.3.1><DG1.3.1>D51.9</DG1.3.1><DG1.3.1>E55.9</DG1.3.1><DG1 .3.1 .~.~<DG1.3.1>D51.9</DG1.3.1><DG1.3.1> D51.9</DG1.3.1><DG1.3.1>E55.9</DG1.3.1><DG1.3.1 #Neut 8.36 10^3/uL 2.00-6.90 Above high normal [facility] T ([facility]) .~.~<DG1.3.1>D51.9</DG1.3.1><DG1.3.1>D51.9</DG1.3.1><DG1.3.1>E55.9</DG1.3.1><DG1 .3.1 Is patient fasting? N~.~.~<DG1.3.1>D51.9</DG1.3.1><DG1.3.1>D51.9</DG1.3.1><DG1.3.1>E55.9</DG1.3. .~.~<DG1.3.1> D51.9</DG1.3.1><DG1.3.1>D51.9</DG1.3.1><DG1.3.1>E55.9</DG1.3.1><DG1.3.1 .~.~<DG1.3.1>D51.9</DG1.3.1><DG1.3.1>D51.9</DG1.3.1><DG1.3.1>E55.9</DG1.3.1><DG1 .3.1 .~.~<DG1.3.1>D51.9</DG1.3.1><DG1.3.1> D51.9</DG1.3.1><DG1.3.1>E55.9</DG1.3.1><DG1.3.1 #Lymph 3.12 10^3/uL 0.60-3.40 [facility] ([facility]) .~.~<DG1.3.1>D51.9</DG1.3.1><DG1.3.1>D51.9</DG1.3.1><DG1.3.1>E55.9</DG1.3.1><DG1 .3.1 Is patient fasting? N~.~.~<DG1.3.1>D51.9</DG1.3.1><DG1.3.1>D51.9</DG1.3.1><DG1.3.1>E55.9</DG1.3. .~.~<DG1.3.1> D51.9</DG1.3.1><DG1.3.1>D51.9</DG1.3.1><DG1.3.1>E55.9</DG1.3.1><DG1.3.1 .~.~<DG1.3.1>D51.9</DG1.3.1><DG1.3.1>D51.9</DG1.3.1><DG1.3.1>E55.9</DG1.3.1><DG1 .3.1 .~.~<DG1.3.1>D51.9</DG1.3.1><DG1.3.1> D51.9</DG1.3.1><DG1.3.1>E55.9</DG1.3.1><DG1.3.1 #Eos 0.18 10^3/uL 0.00-0.70 [facility] ([facility]) .~.~<DG1.3.1>D51.9</DG1.3.1><DG1.3.1>D51.9</DG1.3.1><DG1.3.1>E55.9</DG1.3.1><DG1 .3.1 Is patient fasting? N~.~.~<DG1.3.1>D51.9</DG1.3.1><DG1.3.1>D51.9</DG1.3.1><DG1.3.1>E55.9</DG1.3. .~.~<DG1.3.1> D51.9</DG1.3.1><DG1.3.1>D51.9</DG1.3.1><DG1.3.1>E55.9</DG1.3.1><DG1.3.1 .~.~<DG1.3.1>D51.9</DG1.3.1><DG1.3.1>D51.9</DG1.3.1><DG1.3.1>E55.9</DG1.3.1><DG1 .3.1 .~.~<DG1.3.1>D51.9</DG1.3.1><DG1.3.1> D51.9</DG1.3.1><DG1.3.1>E55.9</DG1.3.1><DG1.3.1 #[place] 0.83 10^3/uL 0.00-0.90 [facility] ([facility]) .~.~<DG1.3.1>D51.9</DG1.3.1><DG1.3.1>D51.9</DG1.3.1><DG1.3.1>E55.9</DG1.3.1><DG1 .3.1 Is patient fasting? N~.~.~<DG1.3.1>D51.9</DG1.3.1><DG1.3.1>D51.9</DG1.3.1><DG1.3.1>E55.9</DG1.3. .~.~<DG1.3.1> D51.9</DG1.3.1><DG1.3.1>D51.9</DG1.3.1><DG1.3.1>E55.9</DG1.3.1><DG1.3.1 .~.~<DG1.3.1>D51.9</DG1.3.1><DG1.3.1>D51.9</DG1.3.1><DG1.3.1>E55.9</DG1.3.1><DG1 .3.1 .~.~<DG1.3.1>D51.9</DG1.3.1><DG1.3.1> D51.9</DG1.3.1><DG1.3.1>E55.9</DG1.3.1><DG1.3.1 #Bas[place] 0.03 10^3/uL 0.00-0.[address] [facility]) .~.~<DG1.3.1>D51.9</DG1.3.1><DG1.3.1>D51.9</DG1.3.1><DG1.3.1>E55.9</DG1.3.1><DG1 .3.1 Is patient fasting? N~.~.~<DG1.3.1>D51.9</DG1.3.1><DG1.3.1>D51.9</DG1.3.1><DG1.3.1>E55.9</DG1.3. .~.~<DG1.3.1> D51.9</DG1.3.1><DG1.3.1>D51.9</DG1.3.1><DG1.3.1>E55.9</DG1.3.1><DG1.3.1 .~.~<DG1.3.1>D51.9</DG1.3.1><DG1.3.1>D51.9</DG1.3.1><DG1.3.1>E55.9</DG1.3.1><DG1 .3.1 .~.~<DG1.3.1>D51.9</DG1.3.1><DG1.3.1> D51.9</DG1.3.1><DG1.3.1>E55.9</DG1.3.1><DG1.3.1 #Ig 0.04 10^3/uL 0.00-0.10 [facility] ([facility]) .~.~<DG1.3.1>D51.9</DG1.3.1><DG1.3.1>D51.9</DG1.3.1><DG1.3.1>E55.9</DG1.3.1><DG1 .3.1 Is patient fasting? N~.~.~<DG1.3.1>D51.9</DG1.3.1><DG1.3.1>D51.9</DG1.3.1><DG1.3.1>E55.9</DG1.3. .~.~<DG1.3.1> D51.9</DG1.3.1><DG1.3.1>D51.9</DG1.3.1><DG1.3.1>E55.9</DG1.3.1><DG1.3.1 .~.~<DG1.3.1>D51.9</DG1.3.1><DG1.3.1>D51.9</DG1.3.1><DG1.3.1>E55.9</DG1.3.1><DG1 .3.1 .~.~<DG1.3.1>D51.9</DG1.3.1><DG1.3.1> D51.9</DG1.3.1><DG1.3.1>E55.9</DG1.3.1><DG1.3.1 #NRBC 0.00 10^3/uL 0.00-0.00 [facility] ([facility]) .~.~<DG1.3.1>D51.9</DG1.3.1><DG1.3.1>D51.9</DG1.3.1><DG1.3.1>E55.9</DG1.3.1><DG1 .3.1 Is patient fasting? N~.~.~<DG1.3.1>D51.9</DG1.3.1><DG1.3.1>D51.9</DG1.3.1><DG1.3.1>E55.9</DG1.3. .~.~<DG1.3.1> D51.9</DG1.3.1><DG1.3.1>D51.9</DG1.3.1><DG1.3.1>E55.9</DG1.3.1><DG1.3.1 .~.~<DG1.3.1>D51.9</DG1.3.1><DG1.3.1>D51.9</DG1.3.1><DG1.3.1>E55.9</DG1.3.1><DG1 .3.1 .~.~<DG1.3.1>D51.9</DG1.3.1><DG1.3.1> D51.9</DG1.3.1><DG1.3.1>E55.9</DG1.3.1><DG1.3.1 Manual Diff Laboratory test result [facility] ([facility]) .~.~<DG1.3.1>D51.9</DG1.3.1><DG1.3.1>D51.9</DG1.3.1><DG1.3.1>E55.9</DG1.3.1><DG1 .3.1 Is patient fasting? N~.~.~<DG1.3.1>D51.9</DG1.3.1><DG1.3.1>D51.9</DG1.3.1><DG1.3.1>E55.9</DG1.3. .~.~<DG1.3.1> D51.9</DG1.3.1><DG1.3.1>D51.9</DG1.3.1><DG1.3.1>E55.9</DG1.3.1><DG1.3.1 .~.~<DG1.3.1>D51.9</DG1.3.1><DG1.3.1>D51.9</DG1.3.1><DG1.3.1>E55.9</DG1.3.1><DG1 .3.1 .~.~<DG1.3.1>D51.9</DG1.3.1><DG1.3.1> D51.9</DG1.3.1><DG1.3.1>E55.9</DG1.3.1><DG1.3.1 RBC Morph Laboratory test result [facility] ([facility]) .~.~<DG1.3.1>D51.9</DG1.3.1><DG1.3.1>D51.9</DG1.3.1><DG1.3.1>E55.9</DG1.3.1><DG1 .3.1 Is patient fasting? N~.~.~<DG1.3.1>D51.9</DG1.3.1><DG1.3.1>D51.9</DG1.3.1><DG1.3.1>E55.9</DG1.3. .~.~<DG1.3.1> D51.9</DG1.3.1><DG1.3.1>D51.9</DG1.3.1><DG1.3.1>E55.9</DG1.3.1><DG1.3.1 .~.~<DG1.3.1>D51.9</DG1.3.1><DG1.3.1>D51.9</DG1.3.1><DG1.3.1>E55.9</DG1.3.1><DG1 .3.1 .~.~<DG1.3.1>D51.9</DG1.3.1><DG1.3.1> D51.9</DG1.3.1><DG1.3.1>E55.9</DG1.3.1><DG1.3.1 ID Date Data Source [id number] 02/26/2021 01:24:00 PM EDT [facility] ([facility]) Name Value Range Interpretation Code Description Data Kayleen rce(s) Supporting Document(s) Calcidiol [Mass/volume] in Serum or Plasma 23 ng/mL [facility] ([facility]) <content>VITAMIN-D(25HYDROXY)</content>< br/><content>Deficiency: <=20 ng/ml</content>
<content>Insufficiency: 21-29 ng/ml</content>
<content>Preferred level: => 30 ng/ml</content>
<conten t></content> ID Date Data Source [id number] 02/26/2021 01:24:00 PM EDT [facility] ([facility]) Name Value Range Interpretation Code Description Data Kayleen rce(s) Supporting Document(s) Iron 45 ug/dL 42-135 [facility] ([facility]) .~.~<DG1.3.1>D51.9</DG1.3.1><DG1.3.1>D51.9</DG1.3.1><DG1.3.1>E55.9</DG1.3.1><DG1 .3.1 Is patient fasting? N~.~.~<DG1.3.1>D51.9</DG1.3.1><DG1.3.1>D51.9</DG1.3.1><DG1.3.1>E55.9</DG1.3. .~.~<DG1.3.1> D51.9</DG1.3.1><DG1.3.1>D51.9</DG1.3.1><DG1.3.1>E55.9</DG1.3.1><DG1.3.1 .~.~<DG1.3.1>D51.9</DG1.3.1><DG1.3.1>D51.9</DG1.3.1><DG1.3.1>E55.9</DG1.3.1><DG1 .3.1 .~.~<DG1.3.1>D51.9</DG1.3.1><DG1.3.1> D51.9</DG1.3.1><DG1.3.1>E55.9</DG1.3.1><DG1.3.1 Uibc 215 ug/dL 112-347 [facility] ([facility]) .~.~<DG1.3.1>D51.9</DG1.3.1><DG1.3.1>D51.9</DG1.3.1><DG1.3.1>E55.9</DG1.3.1><DG1 .3.1 Is patient fasting? N~.~.~<DG1.3.1>D51.9</DG1.3.1><DG1.3.1>D51.9</DG1.3.1><DG1.3.1>E55.9</DG1.3. .~.~<DG1.3.1> D51.9</DG1.3.1><DG1.3.1>D51.9</DG1.3.1><DG1.3.1>E55.9</DG1.3.1><DG1.3.1 .~.~<DG1.3.1>D51.9</DG1.3.1><DG1.3.1>D51.9</DG1.3.1><DG1.3.1>E55.9</DG1.3.1><DG1 .3.1 .~.~<DG1.3.1>D51.9</DG1.3.1><DG1.3.1> D51.9</DG1.3.1><DG1.3.1>E55.9</DG1.3.1><DG1.3.1 Iron Sat 17 % [facility] ([facility]) .~.~<DG1.3.1>D51.9</DG1.3.1><DG1.3.1>D51.9</DG1.3.1><DG1.3.1>E55.9</DG1.3.1><DG1 .3.1 Is patient fasting? N~.~.~<DG1.3.1>D51.9</DG1.3.1><DG1.3.1>D51.9</DG1.3.1><DG1.3.1>E55.9</DG1.3. .~.~<DG1.3.1> D51.9</DG1.3.1><DG1.3.1>D51.9</DG1.3.1><DG1.3.1>E55.9</DG1.3.1><DG1.3.1 .~.~<DG1.3.1>D51.9</DG1.3.1><DG1.3.1>D51.9</DG1.3.1><DG1.3.1>E55.9</DG1.3.1><DG1 .3.1 .~.~<DG1.3.1>D51.9</DG1.3.1><DG1.3.1> D51.9</DG1.3.1><DG1.3.1>E55.9</DG1.3.1><DG1.3.1 Tibc 260 ug/dL 250-450 [facility] ([facility]) .~.~<DG1.3.1>D51.9</DG1.3.1><DG1.3.1>D51.9</DG1.3.1><DG1.3.1>E55.9</DG1.3.1><DG1 .3.1 Is patient fasting? N~.~.~<DG1.3.1>D51.9</DG1.3.1><DG1.3.1>D51.9</DG1.3.1><DG1.3.1>E55.9</DG1.3. .~.~<DG1.3.1> D51.9</DG1.3.1><DG1.3.1>D51.9</DG1.3.1><DG1.3.1>E55.9</DG1.3.1><DG1.3.1 .~.~<DG1.3.1>D51.9</DG1.3.1><DG1.3.1>D51.9</DG1.3.1><DG1.3.1>E55.9</DG1.3.1><DG1 .3.1 .~.~<DG1.3.1>D51.9</DG1.3.1><DG1.3.1> D51.9</DG1.3.1><DG1.3.1>E55.9</DG1.3.1><DG1.3.1 ID Date Data Source [id number] 02/26/2021 01:24:00 PM EDT [facility] ([facility]) Name Value Range Interpretation Code Description Data Kayleen rce(s) Supporting Document(s) Ferritin [Mass/volume] in Serum or Plasma 47.6 ng/mL 3.0-105 [facility] ([facility]) .~.~<DG1.3.1>D51.9</DG1.3.1><DG1.3.1>D51.9</DG1.3.1><DG1.3.1>E55.9</DG1.3.1><DG1 .3.1 Is patient fasting? N~.~.~<DG1.3.1>D51.9</DG1.3.1><DG1.3.1>D51.9</DG1.3.1><DG1.3.1>E55.9</DG1.3. .~.~<DG1.3.1> D51.9</DG1.3.1><DG1.3.1>D51.9</DG1.3.1><DG1.3.1>E55.9</DG1.3.1><DG1.3.1 .~.~<DG1.3.1>D51.9</DG1.3.1><DG1.3.1>D51.9</DG1.3.1><DG1.3.1>E55.9</DG1.3.1><DG1 .3.1 .~.~<DG1.3.1>D51.9</DG1.3.1><DG1.3.1> D51.9</DG1.3.1><DG1.3.1>E55.9</DG1.3.1><DG1.3.1 ID Date Data Source [id number] 02/26/2021 01:24:00 PM EDT [facility] ([facility]) Name Value Range Interpretation Code Description Data Kayleen rce(s) Supporting Document(s) Comprehensive [employer] Laboratory test result [facility] ([facility]) .~.~<DG1.3.1>D51.9</DG1.3.1><DG1.3.1>D51.9</DG1.3.1><DG1.3.1>E55.9</DG1.3.1><DG1 .3.1 Is patient fasting? N~.~.~<DG1.3.1>D51.9</DG1.3.1><DG1.3.1>D51.9</DG1.3.1><DG1.3.1>E55.9</DG1.3. .~.~<DG1.3.1> D51.9</DG1.3.1><DG1.3.1>D51.9</DG1.3.1><DG1.3.1>E55.9</DG1.3.1><DG1.3.1 .~.~<DG1.3.1>D51.9</DG1.3.1><DG1.3.1>D51.9</DG1.3.1><DG1.3.1>E55.9</DG1.3.1><DG1 .3.1 .~.~<DG1.3.1>D51.9</DG1.3.1><DG1.3.1> D51.9</DG1.3.1><DG1.3.1>E55.9</DG1.3.1><DG1.3.1 Sodium 138 meq/L 134-153 [facility] ([facility]) .~.~<DG1.3.1>D51.9</DG1.3.1><DG1.3.1>D51.9</DG1.3.1><DG1.3.1>E55.9</DG1.3.1><DG1 .3.1 Is patient fasting? N~.~.~<DG1.3.1>D51.9</DG1.3.1><DG1.3.1>D51.9</DG1.3.1><DG1.3.1>E55.9</DG1.3. .~.~<DG1.3.1> D51.9</DG1.3.1><DG1.3.1>D51.9</DG1.3.1><DG1.3.1>E55.9</DG1.3.1><DG1.3.1 .~.~<DG1.3.1>D51.9</DG1.3.1><DG1.3.1>D51.9</DG1.3.1><DG1.3.1>E55.9</DG1.3.1><DG1 .3.1 .~.~<DG1.3.1>D51.9</DG1.3.1><DG1.3.1> D51.9</DG1.3.1><DG1.3.1>E55.9</DG1.3.1><DG1.3.1 Potassium 4.0 meq/L 3.6-5.0 [facility] ([facility]) .~.~<DG1.3.1>D51.9</DG1.3.1><DG1.3.1>D51.9</DG1.3.1><DG1.3.1>E55.9</DG1.3.1><DG1 .3.1 Is patient fasting? N~.~.~<DG1.3.1>D51.9</DG1.3.1><DG1.3.1>D51.9</DG1.3.1><DG1.3.1>E55.9</DG1.3. .~.~<DG1.3.1> D51.9</DG1.3.1><DG1.3.1>D51.9</DG1.3.1><DG1.3.1>E55.9</DG1.3.1><DG1.3.1 .~.~<DG1.3.1>D51.9</DG1.3.1><DG1.3.1>D51.9</DG1.3.1><DG1.3.1>E55.9</DG1.3.1><DG1 .3.1 .~.~<DG1.3.1>D51.9</DG1.3.1><DG1.3.1> D51.9</DG1.3.1><DG1.3.1>E55.9</DG1.3.1><DG1.3.1 Chloride 104 meq/L 98-107 [facility] ([facility]) .~.~<DG1.3.1>D51.9</DG1.3.1><DG1.3.1>D51.9</DG1.3.1><DG1.3.1>E55.9</DG1.3.1><DG1 .3.1 Is patient fasting? N~.~.~<DG1.3.1>D51.9</DG1.3.1><DG1.3.1>D51.9</DG1.3.1><DG1.3.1>E55.9</DG1.3. .~.~<DG1.3.1> D51.9</DG1.3.1><DG1.3.1>D51.9</DG1.3.1><DG1.3.1>E55.9</DG1.3.1><DG1.3.1 .~.~<DG1.3.1>D51.9</DG1.3.1><DG1.3.1>D51.9</DG1.3.1><DG1.3.1>E55.9</DG1.3.1><DG1 .3.1 .~.~<DG1.3.1>D51.9</DG1.3.1><DG1.3.1> D51.9</DG1.3.1><DG1.3.1>E55.9</DG1.3.1><DG1.3.1 Glucose 100 mg/dL 70-99 Above high normal [facility] ([facility]) .~.~<DG1.3.1>D51.9</DG1.3.1><DG1.3.1>D51.9</DG1.3.1><DG1.3.1>E55.9</DG1.3.1><DG1 .3.1 Is patient fasting? N~.~.~<DG1.3.1>D51.9</DG1.3.1><DG1.3.1>D51.9</DG1.3.1><DG1.3.1>E55.9</DG1.3. .~.~<DG1.3.1> D51.9</DG1.3.1><DG1.3.1>D51.9</DG1.3.1><DG1.3.1>E55.9</DG1.3.1><DG1.3.1 .~.~<DG1.3.1>D51.9</DG1.3.1><DG1.3.1>D51.9</DG1.3.1><DG1.3.1>E55.9</DG1.3.1><DG1 .3.1 .~.~<DG1.3.1>D51.9</DG1.3.1><DG1.3.1> D51.9</DG1.3.1><DG1.3.1>E55.9</DG1.3.1><DG1.3.1 Co2 23 meq/L 22-30 [facility] ([facility]) .~.~<DG1.3.1>D51.9</DG1.3.1><DG1.3.1>D51.9</DG1.3.1><DG1.3.1>E55.9</DG1.3.1><DG1 .3.1 Is patient fasting? N~.~.~<DG1.3.1>D51.9</DG1.3.1><DG1.3.1>D51.9</DG1.3.1><DG1.3.1>E55.9</DG1.3. .~.~<DG1.3.1> D51.9</DG1.3.1><DG1.3.1>D51.9</DG1.3.1><DG1.3.1>E55.9</DG1.3.1><DG1.3.1 .~.~<DG1.3.1>D51.9</DG1.3.1><DG1.3.1>D51.9</DG1.3.1><DG1.3.1>E55.9</DG1.3.1><DG1 .3.1 .~.~<DG1.3.1>D51.9</DG1.3.1><DG1.3.1> D51.9</DG1.3.1><DG1.3.1>E55.9</DG1.3.1><DG1.3.1 BUN 12 mg/dL 7-21 [facility] ([facility]) .~.~<DG1.3.1>D51.9</DG1.3.1><DG1.3.1>D51.9</DG1.3.1><DG1.3.1>E55.9</DG1.3.1><DG1 .3.1 Is patient fasting? N~.~.~<DG1.3.1>D51.9</DG1.3.1><DG1.3.1>D51.9</DG1.3.1><DG1.3.1>E55.9</DG1.3. .~.~<DG1.3.1> D51.9</DG1.3.1><DG1.3.1>D51.9</DG1.3.1><DG1.3.1>E55.9</DG1.3.1><DG1.3.1 .~.~<DG1.3.1>D51.9</DG1.3.1><DG1.3.1>D51.9</DG1.3.1><DG1.3.1>E55.9</DG1.3.1><DG1 .3.1 .~.~<DG1.3.1>D51.9</DG1.3.1><DG1.3.1> D51.9</DG1.3.1><DG1.3.1>E55.9</DG1.3.1><DG1.3.1 BUN/Creat 20 8-27 [facility] ([facility]) .~.~<DG1.3.1>D51.9</DG1.3.1><DG1.3.1>D51.9</DG1.3.1><DG1.3.1>E55.9</DG1.3.1><DG1 .3.1 Is patient fasting? N~.~.~<DG1.3.1>D51.9</DG1.3.1><DG1.3.1>D51.9</DG1.3.1><DG1.3.1>E55.9</DG1.3. .~.~<DG1.3.1> D51.9</DG1.3.1><DG1.3.1>D51.9</DG1.3.1><DG1.3.1>E55.9</DG1.3.1><DG1.3.1 .~.~<DG1.3.1>D51.9</DG1.3.1><DG1.3.1>D51.9</DG1.3.1><DG1.3.1>E55.9</DG1.3.1><DG1 .3.1 .~.~<DG1.3.1>D51.9</DG1.3.1><DG1.3.1> D51.9</DG1.3.1><DG1.3.1>E55.9</DG1.3.1><DG1.3.1 Creatinine 0.6 mg/dL 0.7-1.5 Below low normal [facility] ( [facility]) .~.~<DG1.3.1>D51.9</DG1.3.1><DG1.3.1>D51.9</DG1.3.1><DG1.3.1>E55.9</DG1.3.1><DG1 .3.1 Is patient fasting? N~.~.~<DG1.3.1>D51.9</DG1.3.1><DG1.3.1>D51.9</DG1.3.1><DG1.3.1>E55.9</DG1.3. .~.~<DG1.3.1> D51.9</DG1.3.1><DG1.3.1>D51.9</DG1.3.1><DG1.3.1>E55.9</DG1.3.1><DG1.3.1 .~.~<DG1.3.1>D51.9</DG1.3.1><DG1.3.1>D51.9</DG1.3.1><DG1.3.1>E55.9</DG1.3.1><DG1 .3.1 .~.~<DG1.3.1>D51.9</DG1.3.1><DG1.3.1> D51.9</DG1.3.1><DG1.3.1>E55.9</DG1.3.1><DG1.3.1 Total Protein 7.1 g/dL 6.3-8.2 [facility] ([facility]) .~.~<DG1.3.1>D51.9</DG1.3.1><DG1.3.1>D51.9</DG1.3.1><DG1.3.1>E55.9</DG1.3.1><DG1 .3.1 Is patient fasting? N~.~.~<DG1.3.1>D51.9</DG1.3.1><DG1.3.1>D51.9</DG1.3.1><DG1.3.1>E55.9</DG1.3. .~.~<DG1.3.1> D51.9</DG1.3.1><DG1.3.1>D51.9</DG1.3.1><DG1.3.1>E55.9</DG1.3.1><DG1.3.1 .~.~<DG1.3.1>D51.9</DG1.3.1><DG1.3.1>D51.9</DG1.3.1><DG1.3.1>E55.9</DG1.3.1><DG1 .3.1 .~.~<DG1.3.1>D51.9</DG1.3.1><DG1.3.1> D51.9</DG1.3.1><DG1.3.1>E55.9</DG1.3.1><DG1.3.1 Albumin 4.8 g/dL 3.9-5.0 [facility] .~.~<DG1.3.1>D51.9</DG1.3.1><DG1.3.1>D51.9</DG1.3.1><DG1.3.1>E55.9</DG1.3.1><DG1 .3.1 Is patient fasting? N~.~.~<DG1.3.1>D51.9</DG1.3.1><DG1.3.1>D51.9</DG1.3.1><DG1.3.1>E55.9</DG1.3. .~.~<DG1.3.1> D51.9</DG1.3.1><DG1.3.1>D51.9</DG1.3.1><DG1.3.1>E55.9</DG1.3.1><DG1.3.1 .~.~<DG1.3.1>D51.9</DG1.3.1><DG1.3.1>D51.9</DG1.3.1><DG1.3.1>E55.9</DG1.3.1><DG1 .3.1 .~.~<DG1.3.1>D51.9</DG1.3.1><DG1.3.1> D51.9</DG1.3.1><DG1.3.1>E55.9</DG1.3.1><DG1.3.1 A/G Ratio 2.1 0.8-2.0 Above high normal [facility] ([facility]) .~.~<DG1.3.1>D51.9</DG1.3.1><DG1.3.1>D51.9</DG1.3.1><DG1.3.1>E55.9</DG1.3.1><DG1 .3.1 Is patient fasting? N~.~.~<DG1.3.1>D51.9</DG1.3.1><DG1.3.1>D51.9</DG1.3.1><DG1.3.1>E55.9</DG1.3. .~.~<DG1.3.1> D51.9</DG1.3.1><DG1.3.1>D51.9</DG1.3.1><DG1.3.1>E55.9</DG1.3.1><DG1.3.1 .~.~<DG1.3.1>D51.9</DG1.3.1><DG1.3.1>D51.9</DG1.3.1><DG1.3.1>E55.9</DG1.3.1><DG1 .3.1 .~.~<DG1.3.1>D51.9</DG1.3.1><DG1.3.1> D51.9</DG1.3.1><DG1.3.1>E55.9</DG1.3.1><DG1.3.1 Globulin 2.3 GM/DL 2.4-3.2 Below low normal [facility] ( [facility]) .~.~<DG1.3.1>D51.9</DG1.3.1><DG1.3.1>D51.9</DG1.3.1><DG1.3.1>E55.9</DG1.3.1><DG1 .3.1 Is patient fasting? N~.~.~<DG1.3.1>D51.9</DG1.3.1><DG1.3.1>D51.9</DG1.3.1><DG1.3.1>E55.9</DG1.3. .~.~<DG1.3.1> D51.9</DG1.3.1><DG1.3.1>D51.9</DG1.3.1><DG1.3.1>E55.9</DG1.3.1><DG1.3.1 .~.~<DG1.3.1>D51.9</DG1.3.1><DG1.3.1>D51.9</DG1.3.1><DG1.3.1>E55.9</DG1.3.1><DG1 .3.1 .~.~<DG1.3.1>D51.9</DG1.3.1><DG1.3.1> D51.9</DG1.3.1><DG1.3.1>E55.9</DG1.3.1><DG1.3.1 Alkaline Phos 75 U/L 38-126 [facility] ([facility]) .~.~<DG1.3.1>D51.9</DG1.3.1><DG1.3.1>D51.9</DG1.3.1><DG1.3.1>E55.9</DG1.3.1><DG1 .3.1 Is patient fasting? N~.~.~<DG1.3.1>D51.9</DG1.3.1><DG1.3.1>D51.9</DG1.3.1><DG1.3.1>E55.9</DG1.3. .~.~<DG1.3.1> D51.9</DG1.3.1><DG1.3.1>D51.9</DG1.3.1><DG1.3.1>E55.9</DG1.3.1><DG1.3.1 .~.~<DG1.3.1>D51.9</DG1.3.1><DG1.3.1>D51.9</DG1.3.1><DG1.3.1>E55.9</DG1.3.1><DG1 .3.1 .~.~<DG1.3.1>D51.9</DG1.3.1><DG1.3.1> D51.9</DG1.3.1><DG1.3.1>E55.9</DG1.3.1><DG1.3.1 Total Bili Laboratory test result 0.2-1.3 [facility] ([facility]) .~.~<DG1.3.1>D51.9</DG1.3.1><DG1.3.1>D51.9</DG1.3.1><DG1.3.1>E55.9</DG1.3.1><DG1 .3.1 Is patient fasting? N~.~.~<DG1.3.1>D51.9</DG1.3.1><DG1.3.1>D51.9</DG1.3.1><DG1.3.1>E55.9</DG1.3. .~.~<DG1.3.1> D51.9</DG1.3.1><DG1.3.1>D51.9</DG1.3.1><DG1.3.1>E55.9</DG1.3.1><DG1.3.1 .~.~<DG1.3.1>D51.9</DG1.3.1><DG1.3.1>D51.9</DG1.3.1><DG1.3.1>E55.9</DG1.3.1><DG1 .3.1 .~.~<DG1.3.1>D51.9</DG1.3.1><DG1.3.1> D51.9</DG1.3.1><DG1.3.1>E55.9</DG1.3.1><DG1.3.1 Calcium 9.6 mg/dL 8.4-10.2 [facility] ([facility]) .~.~<DG1.3.1>D51.9</DG1.3.1><DG1.3.1>D51.9</DG1.3.1><DG1.3.1>E55.9</DG1.3.1><DG1 .3.1 Is patient fasting? N~.~.~<DG1.3.1>D51.9</DG1.3.1><DG1.3.1>D51.9</DG1.3.1><DG1.3.1>E55.9</DG1.3. .~.~<DG1.3.1> D51.9</DG1.3.1><DG1.3.1>D51.9</DG1.3.1><DG1.3.1>E55.9</DG1.3.1><DG1.3.1 .~.~<DG1.3.1>D51.9</DG1.3.1><DG1.3.1>D51.9</DG1.3.1><DG1.3.1>E55.9</DG1.3.1><DG1 .3.1 .~.~<DG1.3.1>D51.9</DG1.3.1><DG1.3.1> D51.9</DG1.3.1><DG1.3.1>E55.9</DG1.3.1><DG1.3.1 SGPT/Alt 11 U/L 7-56 [facility] ([facility]) .~.~<DG1.3.1>D51.9</DG1.3.1><DG1.3.1>D51.9</DG1.3.1><DG1.3.1>E55.9</DG1.3.1><DG1 .3.1 Is patient fasting? N~.~.~<DG1.3.1>D51.9</DG1.3.1><DG1.3.1>D51.9</DG1.3.1><DG1.3.1>E55.9</DG1.3. .~.~<DG1.3.1> D51.9</DG1.3.1><DG1.3.1>D51.9</DG1.3.1><DG1.3.1>E55.9</DG1.3.1><DG1.3.1 .~.~<DG1.3.1>D51.9</DG1.3.1><DG1.3.1>D51.9</DG1.3.1><DG1.3.1>E55.9</DG1.3.1><DG1 .3.1 .~.~<DG1.3.1>D51.9</DG1.3.1><DG1.3.1> D51.9</DG1.3.1><DG1.3.1>E55.9</DG1.3.1><DG1.3.1 Sgot/Ast 13 U/L 5-40 [facility] ([facility]) .~.~<DG1.3.1>D51.9</DG1.3.1><DG1.3.1>D51.9</DG1.3.1><DG1.3.1>E55.9</DG1.3.1><DG1 .3.1 Is patient fasting? N~.~.~<DG1.3.1>D51.9</DG1.3.1><DG1.3.1>D51.9</DG1.3.1><DG1.3.1>E55.9</DG1.3. .~.~<DG1.3.1> D51.9</DG1.3.1><DG1.3.1>D51.9</DG1.3.1><DG1.3.1>E55.9</DG1.3.1><DG1.3.1 .~.~<DG1.3.1>D51.9</DG1.3.1><DG1.3.1>D51.9</DG1.3.1><DG1.3.1>E55.9</DG1.3.1><DG1 .3.1 .~.~<DG1.3.1>D51.9</DG1.3.1><DG1.3.1> D51.9</DG1.3.1><DG1.3.1>E55.9</DG1.3.1><DG1.3.1 Anion Gap 11.0 mmol/L 8.0-16.0 [facility]) .~.~<DG1.3.1>D51.9</DG1.3.1><DG1.3.1>D51.9</DG1.3.1><DG1.3.1>E55.9</DG1.3.1><DG1 .3.1 Is patient fasting? N~.~.~<DG1.3.1>D51.9</DG1.3.1><DG1.3.1>D51.9</DG1.3.1><DG1.3.1>E55.9</DG1.3. .~.~<DG1.3.1> D51.9</DG1.3.1><DG1.3.1>D51.9</DG1.3.1><DG1.3.1>E55.9</DG1.3.1><DG1.3.1 .~.~<DG1.3.1>D51.9</DG1.3.1><DG1.3.1>D51.9</DG1.3.1><DG1.3.1>E55.9</DG1.3.1><DG1 .3.1 .~.~<DG1.3.1>D51.9</DG1.3.1><DG1.3.1> D51.9</DG1.3.1><DG1.3.1>E55.9</DG1.3.1><DG1.3.1 Age 35 yrs [facility] ([facility]) .~.~<DG1.3.1>D51.9</DG1.3.1><DG1.3.1>D51.9</DG1.3.1><DG1.3.1>E55.9</DG1.3.1><DG1 .3.1 Is patient fasting? N~.~.~<DG1.3.1>D51.9</DG1.3.1><DG1.3.1>D51.9</DG1.3.1><DG1.3.1>E55.9</DG1.3. .~.~<DG1.3.1> D51.9</DG1.3.1><DG1.3.1>D51.9</DG1.3.1><DG1.3.1>E55.9</DG1.3.1><DG1.3.1 .~.~<DG1.3.1>D51.9</DG1.3.1><DG1.3.1>D51.9</DG1.3.1><DG1.3.1>E55.9</DG1.3.1><DG1 .3.1 .~.~<DG1.3.1>D51.9</DG1.3.1><DG1.3.1> D51.9</DG1.3.1><DG1.3.1>E55.9</DG1.3.1><DG1.3.1 Afr Amer GFR Laboratory test result [facility] ([facility]) .~.~<DG1.3.1>D51.9</DG1.3.1><DG1.3.1>D51.9</DG1.3.1><DG1.3.1>E55.9</DG1.3.1><DG1 .3.1 Is patient fasting? N~.~.~<DG1.3.1>D51.9</DG1.3.1><DG1.3.1>D51.9</DG1.3.1><DG1.3.1>E55.9</DG1.3. .~.~<DG1.3.1> D51.9</DG1.3.1><DG1.3.1>D51.9</DG1.3.1><DG1.3.1>E55.9</DG1.3.1><DG1.3.1 .~.~<DG1.3.1>D51.9</DG1.3.1><DG1.3.1>D51.9</DG1.3.1><DG1.3.1>E55.9</DG1.3.1><DG1 .3.1 .~.~<DG1.3.1>D51.9</DG1.3.1><DG1.3.1> D51.9</DG1.3.1><DG1.3.1>E55.9</DG1.3.1><DG1.3.1 Non-Aa GFR Laboratory test result [facility] ([facility]) .~.~<DG1.3.1>D51.9</DG1.3.1><DG1.3.1>D51.9</DG1.3.1><DG1.3.1>E55.9</DG1.3.1><DG1 .3.1 Is patient fasting? N~.~.~<DG1.3.1>D51.9</DG1.3.1><DG1.3.1>D51.9</DG1.3.1><DG1.3.1>E55.9</DG1.3. .~.~<DG1.3.1> D51.9</DG1.3.1><DG1.3.1>D51.9</DG1.3.1><DG1.3.1>E55.9</DG1.3.1><DG1.3.1 .~.~<DG1.3.1>D51.9</DG1.3.1><DG1.3.1>D51.9</DG1.3.1><DG1.3.1>E55.9</DG1.3.1><DG1 .3.1 .~.~<DG1.3.1>D51.9</DG1.3.1><DG1.3.1> D51.9</DG1.3.1><DG1.3.1>E55.9</DG1.3.1><DG1.3.1 ID Date Data Source [id number] 02/26/2021 02:27:00 PM EDT [facility] Name Value Range Interpretation Code Description Data Kayleen rce(s) Supporting Document(s) Ferritin [Mass/volume] in Serum or Plasma 47.6 ng/mL 3.0 - 105 [facility] ID Date Data Source [id number] 02/26/2021 02:27:00 PM EDT [facility] Name Value Range Interpretation Code Description Data Kayleen rce(s) Supporting Document(s) Calcidiol [Moles/volume] in Serum or Plasma 23 NG/ML [facility] VITAMIN-D(2 5HYDROXY) Deficiency: <=20 ng/ml Insufficiency: 21-29 ng/ml Preferred level: => 30 ng/ml ID Date Data Source [id number] 02/26/2021 02:27:00 PM EDT [facility] Name Value Range Interpretation Code Description Data Kayleen rce(s) Supporting Document(s) Cobalamin (Vitamin B12) [Mass/volume] in Serum or Plasma 353 PG/ML 232 - 1245 [facility] ID Date Data Source [id number] 02/26/2021 02:08:00 PM EDT [facility] Name Value Range Interpretation Code Description Data Kayleen rce(s) Supporting Document(s) COMPREHENSIVE METABOLIC PANEL [facility] COMPREHENSIVE METABOLIC PANEL Sodium [Moles/volume] in Serum or Plasma 138 mEq/L 134 - 153 [facility] Potassium [Moles/volume] in Serum or Plasma 4.0 mEq/L 3.6 - 5.0 [facility] Chloride [Moles/volume] in Serum or Plasma 104 mEq/L 98 - 107 [facility] Carbon dioxide, total [Moles/volume] in Serum or Plasma 23 MEQ/L 22 - 30 [facility] Glucose [Mass/volume] in Serum or Plasma 100 MG/DL 70 - 99 H [facility] BUN 12 MG[facility]DL 7 [facility] Creatinine [Mass/volume] in Serum or Plasma 0.6 MG/DL 0.7 - 1.5 L [facility] BUN/CREAT 20 8 - 27 [facility] Protein [Mass/volume] in Serum or Plasma 7.1 G/DL 6.3 - 8.2 [facility] Albumin [Mass/volume] in Serum or Plasma 4.8 G/DL 3.9 - 5.0 [facility] Globulin [Mass/volume] in Serum by calculation 2.3 GM/DL 2.4 - 3.2 L [facility] A/G RATIO 2.1 0.8 - 2.0 H [facility] Calcium [Mass/volume] in Serum or Plasma 9.6 MG/DL 8.4 - 10.2 [facility] Bilirubin.total [Mass/volume] in Serum or Plasma <0.7 MG/DL 0.2 - 1.3 [facility] Alkaline phosphatase [Enzymatic activity/volume] in Serum or Plasma 75 U/L 38 - 126 [facility] Aspartate aminotransferase [Enzymatic activity/volume] in Serum or Plasma 13 U/L 5 - 40 [facility] Alanine aminotransferase [Enzymatic activity/volume] in Seru m or Plasma 11 U/L 7 - 56 [facility] Anion gap 3 in Serum or Plasma 11.0 mmol/L 8.0 - 16.0 [facility] AGE 35 yrs [facility] NON-AA GFR >60 mL/min [facility] ital AFR AMER GFR >60 mL/min [facility] Ho spital Male GFR In terprentation 20-49 yrs >60 mL/min Normal 50-59 yrs >56 mL/min Normal 60-69 yrs >49 mL/min Normal 70-79yrs >42 mL/min Normal 80 and above >35 mL/min Normal Female GFR Interpretation 20-39 yrs >60 mL/min Normal 40-49 yrs >58 mL/min Normal 50-59 yrs >51 mL/min Normal 60-69 yrs >45 mL/min Normal 70-79 yrs >39 mL/min Normal 80 and above >32 mL/min Normal ID Date Data Source [id number] 02/26/2021 02:04:00 PM EDT [facility] Name Value Range Interpretation Code Description Data Kayleen rce(s) Supporting Document(s) Iron [Mass/volume] in Serum or Plasma 45 UG/DL 42 - 135 [facility] Iron binding capacity.unsaturated [Mass/volume] in Serum or Plasma 215 UG/DL 112 - 347 [facility] Iron binding capacity [Mass/volume] in Serum or Plasma 260 ug/dL 250 - 450 [facility] Iron saturation [Mass Fraction] in Serum or Plasma 17 % [facility] ID Date Data Source [id number] 02/26/2021 01:43:00 PM EDT [facility] Name Value Range Interpretation Code Description Data Kayleen rce(s) Supporting Document(s) CBC W/AUTOMATED DIFF [facility] COMPLETE BLOOD COUNT Leukocytes [#/volume] in Blood by Automated count 12.6 10^3/uL 4.2 - 11.0 H [facility] Erythrocytes [#/volume] in Blood by Automated count 4.44 10^6/uL 4. 20 - 5.40 [facility] Hemoglobin [Mass/volume] in Blood 14.0 g/dL 12.0 - 16.0 [facility] Hematocrit [Volume Fraction] of Blood by Automated count 41.6 % 3 7.0 - 47.0 [facility] Erythrocyte mean corpuscular volume [Entitic volume] by Auto mated count 93.7 fL 81.0 - 101 [facility] Erythrocyte mean corpuscular hemoglobin [Entitic mass] by Automated count 31.5 pg 27.0 - 34.0 [facility] Erythrocyte mean corpuscular hemoglobin concentration [Mass/volume] by Automated count 33.7 g/dL 31.0 - 36.0 [facility] Erythrocyte distribution width [Ratio] by Automated count 13.9 % 11.5 - 14.5 [facility] Platelets [#/volume] in Blood by Automated count 210 10^3/uL 150 - 45 0 [facility] Platelet mean volume [Entitic volume] in Blood by Automated count 9.1 fL 7.4 - 10.4 [facility] Neutrophils/100 leukocytes in Blood by Automated count 66.7 % 37. 0 - 80.0 [facility] Lymphocytes/100 leukocytes in Blood by Manual count 24.8 % 25.0 - 40.0 L [facility] Monocytes/100 leukocytes in Blood by Automated count 6.6 % 3.0 - 8.0 [facility] Eosinophils/100 leukocytes in Blood by Automated count 1.4 % 0.0 - 7.0 [facility] Basophils/100 leukocytes in Blood by Automated count 0.2 % 0.0 - 2.5 [facility] %IG 0.3 % 0.0 - 0.0 H [facility] al %NRBC 0.0 % 0.0 - 0.0 [place] [facility] Neutrophils [#/volume] in Blood by Automated count 8.36 10^3/uL 2.00 - 6.90 [facility] Lymphocytes [#/volume] in Blood by Automated count 3.12 10^3/uL 0.60 - 3.40 [facility] Monocytes [#/volume] in Blood by Automated count 0.83 10^3/uL 0.00 - 0.90 [facility] Eosinophils [#/volume] in Blood by Automated count 0.18 10^3/uL 0.00 - 0.70 [facility] Basophils [#/volume] in Blood by Automated count 0.03 10^3/uL 0.00 - 0.20 [facility] #IG 0.04 10^3/uL 0.00 - 0.10 [facility] #NRBC 0.00 10^3/uL 0.00 - 0.00 [facility] ospital MANUAL DIFF NOT INDICATED [facility] RBC MORPH NOT INDICATED [facility] spital ID Date Data Source [id number] 02/26/2021 01:22:00 PM EDT [facility] ([facility]) Name Value Range Interpretation Code Description Data Kayleen rce(s) Supporting Document(s) Treponema pallidum Ab [Presence] in Serum Laboratory test result [facility] ([facility]) Hepatitis B virus surface Ag [Presence] in Serum or Pl asma by Immunoassay Laboratory test result [facility] ([facility]) Laboratory test finding (navigational concept) Laboratory test resu lt 0.0-0.9 [facility] ([facility]) ID Date Data Source [id number] 02/26/2021 01:22:00 PM EDT [facility] ([facility]) Name Value Range Interpretation Code Description Data Kayleen rce(s) Supporting Document(s) HIV Screen 4thGeneration wRfx Laboratory test result [facility] ([facility]) ID Date Data Source [id number] 02/26/2021 01:22:00 PM EDT [facility] ([facility]) Name Value Range Interpretation Code Description Data Kayleen rce(s) Supporting Document(s) HSV 2 IgG, Type Spec 2.06 index 0.00-0.90 Above high normal [facility] ([facility]) <content>Negative <0.91</content>
<content>Equivocal 0.91 - 1.09</content>
<content>Positive >1.09</content>
<content>Note: Negative indicates no antibodies detected to</content>
<content>HSV-2. Equivocal may suggest early infection. If</content>
<content>clinically appropriate, retest at later date. Positive</content>
<content>indicates antibodies detected to HSV-2.</content>
<content></content> HSV 1 IgG, Type Spec Laboratory test result 0.00-0.90 [facility] ([facility]) <content>Negative <0.91</content>
<content>Equivocal 0.91 - 1.09</content>
<content>Positive >1.09</content>
<content>Note: Negative indicates no antibodies detected to</content>
<content>HSV-1. Equivocal may suggest early infection. If</content>
<content>clinically appropriate, retest at later date. Positive</content>
<content>indicates antibodies detected to HSV-1.</content>
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 Positive/Equivocal Negative Unable to confirm the presence of IgG antibodies to HSV-2. Recommend retesting in 2-4 weeks. ID Date Data Source [id number] 02/26/2021 01:22:00 PM EDT [facility] ([facility]) Name Value Range Interpretation Code Description Data Kayleen rce(s) Supporting Document(s) HSV, IgM I/II Combination Laboratory test result 0.00-0.90 [facility] ([facility]) <content>Negative <0.91</content>
<content>Equivocal 0.91 - 1.09</content>
<content>Positive >1.09</content>
<content></content> ID Date Data Source [id number] 02/26/2021 01:22:00 PM EDT [facility] ([facility]) Name Value Range Interpretation Code Description Data Kayleen rce(s) Supporting Document(s) Fibrosis Score 0.02 NA 0.00-0.21 [facility] ([facility]) Fibrosis Stage Laboratory test result [facility] ([facility]) F0 - No fibrosis Necroinflammat ActivityScore 0.03 NA 0.00-0.17 [facility] ([facility]) Necroinflammat ActivityGrade Laboratory test result [facility] ([facility]) Haptoglobin 228 mg/dL 33-278 [facility] ([facility]) Alpha 2-Macroglobulins,Qn 157 mg/dL 110-276 [facility] ([facility]) GGT 12 IU/L 0-60 [facility] ([facility]) Apolipoprotein A-1 105 mg/dL 116-209 Below low normal [facility] ([facility]) Bilirubin, Total 0.1 mg/dL 0.0-1.2 [facility] ([facility]) Laboratory test finding (navigational concept) Laboratory test result [facility] ([facility]) Quantitative results of 6 biochemical te sts are analyzed using a computational algorithm to provide a quantitative surrogate marker (0.0-1.0) for liver fibrosis (METAVIR F0-F4) and for necroinflammatory activity (METAVIR A0-A3). Alt (SGPT) P5P 13 IU/L 0-40 [facility] ([facility]) Laboratory test finding (navigational concept) Laboratory test result [facility] ([facility]) <content><=0.21 = Stage F0 - No fibrosis </content>
<content>0.21 - 0.27 = Stage F0 - F1</content>
<content>0.27 - 0.31 = Stage F1 - Portal fibrosis</content>
<content>0.31 - 0.48 = Stage F1 - F2</content>
<content>0.48 - 0.58 = Stage F2 - Bridging fibrosis with few septa</content>
<content>0.58 - 0.72 = Stage F3 - Bridging fibrosis with many septa</content>
<content>0.72 - 0.74 = Stage F3 - F4</content>
<content>>0.74 = Stage F4 - Cirrhosis</content>
<content></content> Laboratory test finding (navigational concept) [facility] result [facility] <content>The negative predictive value o f a Fibrotest score <0.31 (absence of</content>
<content>clinically significant fibrosis) was 85% when compared to liver biopsy</content>
<content>in 1,270 HCV infected patients with a 38% prevalence of significant</content>
<content>liver fibrosis (F2, 3 or 4). The positive predictive value of a Fibro-</content>
<content>test score >0.48 (F2, 3, 4) was 61% in that same patient cohort. HCV</content>
<content>FibroSURE is not recommended in patients with Gilbert Disease, acute</content>
<content>hemolysis (e.g. HCV ribavirin therapy mediated hemolysis) acute hepa-</content>
<content>titis of the liver, extra-hepatic cholestasis, transplant patients,</content>
<content>and/or renal insufficiency patients. Any of these clinical situations</content>
<content>may lead to inaccurate quantitative predictions of fibrosis and</content>
<content>necroinflammatory activity in the liver.</content>
<content></content> Laboratory test finding (navigational concept) Laboratory test result [facility] ([facility]) <content><0.17 = Grade A0 - No Activity< /content>
<content>0.17 - 0.29 = Grade A0 - A1</content>
<content>0.29 - 0.36 = Grade A1 - Minimal activity</content>
<content>0.36 - 0.52 = Grade A1 - A2</content>
<content>0.52 - 0.60 = Grade A2 - Moderate activity</content>
<content>0.60 - 0.62 = Grade A2 - A3</content>
<content>>0.62 = Grade A3 - Severe activity</content>
<content></content> Comment: Laboratory test result [facility] ([facility]) ID Date Data Source [id number] 03/02/2021 07:41:00 AM EDT [facility] Name Value Range Interpretation Code Description Data Kayleen rce(s) Supporting Document(s) Fibrosis score 0.02 NA 0.00-0.21 [facility]ital Fibrosis stage COMMENT [facility] F0 - No fibrosis Necroinflammatory activity score 0.03 NA 0.00-0.17 [facility] Necroinflammatory activity grade A0-No activity [facility] [id number]-[id number] [Mass/volume] in Serum or Plasma 157 mg/dL 110 -276 [facility] Haptoglobin [Mass/volume] in Serum or Plasma 228 mg/dL 33-278 [facility] Apolipoprotein A-I [Mass/volume] in Serum or Plasma 105 mg/dL 116-20 9 L [facility] Bilirubin.total [Mass/volume] in Serum or Plasma 0.1 mg/dL 0.0-1.2 [facility] Gamma glutamyl transferase [Enzymatic activity/volume] in Serum or Plasma 12 IU/L 0-60 [facility] Alanine aminotransferase [Enzymatic acti vity/volume] in Serum or Plasma by With P-5'-P 13 IU/L 0-40 [facility] Interpretations: COMMENT [facility] Quantitative results of 6 biochemical te sts are analyzed usinga computational algorithm to provide a quantitative surrogatemarker (0.0-1.0) for liver fibrosis (METAVIR F0-F4) and fornecroinflammatory activity (METAVIR A0-A3). Fibrosis Scoring: COMMENT [facility] <=0.21 = Stage F0 - No fibrosis0.21 - 0.27 = Stage F0 - F10.27 - 0.31 = Stage F1 - Portal fibrosis0.31 - 0.48 = Stage F1 - F20.48 - 0.58 = Stage F2 - Bridging fibrosis with few septa0.58 - 0.72 = Stage F3 - Bridging fibrosis with many septa0.72 - 0.74 = Stage F3 - F4 >0.74 = Stage F4 - Cirrhosis Necroinflamm ActivityScoring: COMMENT [facility] <0.17 = Grade A0 - No Activity0.17 - 0.29 = Grade A0 - A10.29 - 0.36 = Grade A1 - Minimal activity0.36 - 0.52 = Grade A1 - A20.52 - 0.60 = Grade A2 - Moderate activity0.60 - 0.62 = Grade A2 - A3 >0.62 = Grade A3 - Severe activity Service comment COMMENT [facility] The negative predictive value of a Fibro test score <0.31 (absence ofclinically significant fibrosis) was 85% when compared to liver biopsyin 1,270 HCV infected patients with a 38% prevalence of significantliver fibrosis (F2, 3 or 4). The positive predictive value of a Fibro-test score >0.48 (F2, 3, 4) was 61% in that same patient cohort. HCVFibroSURE is not recommended in patients with Gilbert Disease, acutehemolysis (e.g. HCV ribavirin therapy mediated hemolysis) acute hepa-titis of the liver, extra-hepatic cholestasis, transplant patients,and/or renal insufficiency patients. Any of these clinical situationsmay lead to inaccurate quantitative predictions of fibrosis andnecroinflammatory activity in the liver. Laboratory comment [Text] in Report Narrative WILL FOLLOW [facility] ID Date Data Source [id number] 02/28/2021 04:18:00 PM EDT [facility] Name Value Range Interpretation Code Description Data Kayleen rce(s) Supporting Document(s) Herpes simplex virus 1+2 IgM Ab [Units/volume] in Seru m by Immunoassay <0.91 Ratio 0.00-0.90 [facility] Negative <0.91 Equivocal 0.91 - 1.09 Positive >1.09 ID Date Data Source [id number] 02/27/2021 04:56:00 PM EDT [facility] Name Value Range Interpretation Code Description Data Kayleen rce(s) Supporting Document(s) Herpes simplex virus 1 IgG Ab [Units/volume] in Serum by Immunoassay <0.91 index 0.00-0.90 [facility] Negative <0.91 Equivocal 0.91 - 1.09 Positive >1.09 Note: Negative indicates no antibodies detected to HSV-1. Equivocal may suggest early infection. If clinically appropriate, retest at later date. Positive indicates antibodies detected to HSV-1. Herpes simplex virus 2 IgG Ab [Units/volume] in Serum by Imm unoassay 2.06 index 0.00-0.90 H [facility] Negative <0.91 Equivocal 0.91 - 1.09 Positive >1.09 Note: Negative indicates no antibodies detected to HSV-2. Equivocal may suggest early infection. If clinically appropriate, retest at later date. Positive indicates antibodies detected to HSV-2. Herpes simplex virus 2 IgG Ab [Presence] in Serum or P lasma by Immunoassay Positive Negative A [facility] HSV-2 IgG HSV-2 IgG Type Specific Confirmation Interpretation Positiv e/Equivocal Positive Indicates the presence of detectable IgG antibodies to HSV-2. ------ Positive/Equivocal Negative Unable to confirm the presence of IgG antibodies to HSV-2. Recommend retesting in 2-4 weeks. ID Date Data Source [id number] 02/27/2021 04:48:00 PM EDT [facility] Name Value Range Interpretation Code Description Data Kayleen rce(s) Supporting Document(s) HIV 1+2 Ab+HIV1 p24 Ag [Presence] in Serum or Plasma b y Immunoassay Non Reactive Non Reactive [facility] ID Date Data Source [id number] 02/27/2021 04:48:00 PM EDT [facility] Value Range Interpretation Code Description Data Kayleen rce(s) Supporting Document(s) Hepatitis C virus Ab Signal/Cutoff in Serum or Plasma by Immunoassay <0.1 s/coratio 0.0-0.9 [facility] ID Date Data Source [id number] 02/26/2021 02:29:00 PM EDT [facility] Value Range Interpretation Code Description Data Kayleen rce(s) Supporting Document(s) Hepatitis B virus surface Ab [Units/volume] in Serum o r Plasma by Immunoassay NONREACTIVE NORMAL:NON REACTIVE [facility] ID Date Data Source [id number] 02/26/2021 02:29:00 PM EDT [facility] Value Range Interpretation Code Description Data Kayleen rce(s) Supporting Document(s) Treponema pallidum Ab [Presence] in Serum NON-REACTIVE NORMAL:NON FLOWER CTIVE [facility] ID Date Data Source [id number] 02/22/2021 08:28:00 AM EDT [facility] ([facility]) Name Value Range Interpretation Code Description Data Kayleen rce(s) Supporting Document(s) Sars-CoV-2, Tracey Laboratory test result [facility] ([facility]) .~.~Z11.59 Laboratory test finding (navigational concept) Laboratory test result [facility] ([facility]) .~.~Z11.59 ID Date Data Source [id number] 02/22/2021 08:28:00 AM [facility]T [facility] Name Value Range Interpretation Code Description Data Kayleen rce(s) Supporting Document(s) SARS coronavirus 2 RNA Not Detected [facility] This lab was ordered by [facility] Eric ceballos and reported by [email or web address]. ID Date Data Source [id number] 02/24/2021 06:53:00 AM EDT [facility] Name Value Range Interpretation Code Description Data Kayleen rce(s) Supporting Document(s) SARS-CoV-2, TRACEY Not Detected Not Detected [facility] This nucleic acid amplification test was developed and its performancecharacteristics determined by [facility]. Nucleic acidamplification tests include RT-PCR and TMA. This test has not beenFDA cleared or approved. This test has been authorized by FDA underan Emergency Use Authorization (EUA). This test is only authorizedfor the duration of time the declaration that circumstances existjustifying the authorization of the emergency use of in vitrodiagnostic tests for detection of SARS-CoV-2 virus and/or diagnosisof COVID-19 infection under section 564(b)(1) of the Act, 21 U.S.C.360bbb-3(b) (1), unless the authorization is terminated or revokedsooner.When diagnostic testing is negative, the possibility of a falsenegative result should be considered in the context of a patient'srecent exposures and the presence of clinical signs and symptomsconsistent with COVID- 19. An individual without symptoms of COVID-19and who is not shedding SARS-CoV-2 virus would expect to have anegative (not detected) result in this assay. SARS-CoV-2, TRACEY 2 DAY TAT Performed [facility] ID Date Data Source [id number] 02/22/2021 08:28:00 AM EDT [facility] ([facility]) Name Value Range Interpretation Code Description Data Kayleen rce(s) Supporting Document(s) Covid-19 Laboratory test result [facility] ([facility]) ID Date Data Source [id number] 02/22/2021 07:44:00 AM EDT [facility] 1 Medication Reconciliation Report [facility] Emergency Department [address] [place] [address] Phone #: ext- [phone] 02/22/2021 07:40 [id number] Sex[facility] F : 1985 Age: 35yWeight: 67.1 kgHeight/Length: 61 in.BMI: 28.0ALLERGIES: Morphine and RelatedThe patient's Home Medications are listed below:THE FOLLOWING MEDICATIONS NEED TO BE RECONCILED: PropanololThe source(s) of the original Home Medication information:Not obtained.The following Medications were given to the patient in the Emergency Department:None.The following Medications were prescribed to the patient:None. Name Value Range Interpretation Code Description Data Kayleen [facility](s) Supporting Document(s) ID Date Data Source [id number] 02/22/2021 07:44:00 AM EDT [place] [address] Medication Administration Record [facility] Emergency Department [address] [place] [address] Phone #: ext- [phone] 02/22/2021 07:40 Patient: DOROTEO AC Sex: F : 1985 Age: 35yWeight: 67.1 kgHeight/Length: 61 inBMI: 28ALLERGIES: Morphine and RelatedDate/Time Medication Administered Medication Ordered Name Value Range Interpretation Code Description Data Kayleen e(s) Supporting Document(s) ID Date Data Source [id number] 02/22/2021 07:44:00 AM EDT [place] [address] General Instructions [facility] Emergency Department [address] [place] [address] Phone #: ext- [phone] 02/22/2021 07:40 Patient: DOROTEO AC Sex: F : 1985 Age: 35yAcute sore throat.Left Without Being Seen.INSTRUCTIONSEloped: Patient left the Emergency Department; (during history taking). Notified the charge nurse andprimary nurse of patient departure. Stated is leaving the ED due to personal reasons.(Electronically signed by Nadya Awad M.D. 02/22/2021 08:21) Name Value Range Interpretation Code Description Data Kayleen rce(s) Supporting Document(s) ID Date Data Source [id number] 02/22/2021 07:44:00 AM EDT [facility] 1 Clinical Report - Nurses [facility] Emergency Department [address] [place] [address] Phone #: ext- [phone] 02/22/2021 07:40 Patient: DOROTEO AC Sex: F : 1985 Age: 35yTRIAGEArrived by private vehicle. Historian: patient. Unaccompanied. ( here today because she has a sorethroat and cough, now states she wants a test because she had a faint line on a homepregnancy test but had her tubes tied).Acuity: LEVEL 4.Chief Complaint: SORE THROAT and CHILLS.Alert. No acute distress.Onset. (5 days). She has had fever (monday). ( runny nose, congtestion).Treatment DIRECTOR BUSINESS INTELLIGENCE:Took ibuprofen. (330).SEPSIS SCREEN: SIRS SCREEN NEGATIVE. SEPSIS SCREEN NEGATIVE. No suspected or confirmedsigns of infection present. --07:46 02/22/21 Farida Rainey R.N.07:41 02/22/21. BP: 135/92. MAP: 106. HR: 105. RR: 18. O2 saturation: 99%. Temp: 98 F. Pain levelnow: 10/12. --07:46 02/22/21 Farida Rainey R.N.Weight: 67.1 kg stated. Height/Length: 61 inches Per Patient. BMI: 28. --07:41 02/22/21 Farida Rainey R.N.MedicationsPropanolol. --07:48 02/22/21 Farida Rainey R.N.AllergiesMorphine and Related.(hives, rash) --07:48 02/22/21 Farida Rainey R.N.The following entry was struck by Farida Rainey R.N., 07:48 (02/22/21) Reason - other. Opiates. --07:42 02/22/21 Farida Rainey R.N. .PROBLEMS:Abdominal Pain.Chronic Headache.Intrauterine .Bipolar Disorder.Borderline personality disorder.Diarrhea.Headache.Schizophrenia. 2 Clinical Report - Nurses [facility] Emergency Department [address] [place] [address] Phone #: ext- [phone] 02/22/2021 07:40 [id number] Sex: F : 1985 Age: 35yVomiting.Seasonal allergic rhinitis.Mood Disorder. --07:49 02/22/21 Farida Rainey R.N.The following entry was modified by Farida Rainey R.N., 07:49 02/22/21Hyperthyroidism. --07:48 02/22/21 Farida Rainey R.N.The following entry was modified by Farida Rainey R.N., 07:49 02/22/21ITP. --07:48 02/22/21 Farida Rainey R.N.The following entry was modified by Farida Rainey R.N., 07:49 02/22/21Migraine Headache. --07:48 02/22/21 Farida Rainey R.N..ADDITIONAL SURGERIES: (X4).Tonsillectomy.Tubal Ligation. --07:49 02/22/21 Farida Rainey R.N.HistoryPAST MEDICAL HX: Immunizations: up-to-date. Last normal menstrual period- Feb 06, tubal.SOCIAL HX: Light tobacco smoker- less than 1/2 a pack per day. Occasional alcohol use. Heavy druguse: marijuana. She was offered HIV testing but declined and hepatitis C testing but declined. She hasnot traveled outside the [place]Infectious disease exposure: No infectious disease exposure. The patient was not exposed to Coronavirus.(has been vaccinated). Patient is not a known carrier of tuberculosis, hepatitis, HIV, MRSA or VRE. Patientis not a known carrier of CRE.SELF HARM ASSESSMENT: Self harm assessment was performed. The p atient answered "no" to thequestion(s) "Have you recently felt down, depressed, or hopeless?" and "Do you have thoughts of harmingor killing yourself?".ABUSE ASSESSMENT: Abuse assessment. Abuse denied. No suspicion of abuse. No report of abuse.NUTRITIONAL RISK ASSESSMENT: The nutritional risk assessment revealed no deficiencies.FUNCTIONAL ASSESSMENT: Functional assessment: no impairments noted.LEARNING NEEDS ASSESSMENT: The learning needs assessment revealed no barriers.FALL RISK ASSESSMENT: Fall risk assessment completed. No risk factors identified.SKIN INTEGRITY ASSESSMENT: Skin integrity risk assessment completed. No skin integrity riskidentified. --07:46 02/22/21 Farida Rainey R.N.InterventionsIdentification band on patient. To treatment room. --07:46 02/22/21 Farida Rainey R.N. 3 Clinical Report - Nurses [facility] Emergency Department [address] [place] [address] Phone #: ext- [phone] 02/22/2021 07:40 Patient: DOROTEO AC Sex: F : 1985 Age: 35yPHYSICAL ASSESSMENTAmbulatory to room.GENERAL / NEURO / PSYCH: Alert. Oriented X 4. Appears in no acute distress.HEENT: Runny nose. Mouth within normal limits upon inspection. No dental injury noted. Mucousmembranes are pink.RESPIRATORY: Respirations not labored. Cough.CVS: Capillary refill less than 2 seconds.SKIN: Skin is warm and dry. Normal skin turgor. --07:47 02/22/21 Farida Rainey R.N.NURSING PROGRESS NOTESPatient gowned. Reassurance given. Two patient identifiers checked. Call light placed in reach. Siderails up x 2. Bed placed in lowest position. Brakes of bed on. Patient ready for evaluation. --07:4802/22/21 Farida Rainey R.N.DISPOSITION / DISCHARGE The patient left the Emergency Department without being seen by a physician; patient was unaccompanied. The patient appears to be alert, oriented x4 and coherent. She notified staff prior to leaving the department and stated is leaving due to personal reasons. Notified the ED physician of patient departure. She left the Emergency Department ambulatory and via private vehicle. The patient eloped. -- 07:58 02/22/21 Farida Rainey R.N. Departure time: 07:58 02/22/2021. --07:58 02/22/21 Farida Rainey R.N.Locked/Released at 02/22/2021 07:59 by Farida Rainey R.N. Name Value Range Interpretation Code Description Data Kayleen rce(s) Supporting Document(s) ID Date Data Source [id number] 02/22/2021 07:44:00 AM EDT [facility] 1 Clinical Report - Physicians/Mid Levels [facility] Emergency Department [address] [place] [address] Phone #: ext- [phone] 02/22/2021 07:40 Patient: DOROTEO AC Sex: F : 1985 Age: 35y Time Seen: 07:48 02/22/2021; initial patient contact. Arrived- By private vehicle. Historian- patient. Disposition decision: 07:56 02/22/2021.HISTORY OF PRESENT ILLNESS Chief Complaint: SORE THROAT. This started 5 days ago and is still present. Pain described as mild. The patient has had a sore throat and nasal congestion. Similar symptoms previously. Recent medical care: Not recently seen/assessed.REVIEW OF SYSTEMSNo fever, eye discomfort, difficulty breathing, chest pain or nausea. No diarrhea, abdominal pain, difficultywith urination, headache or fainting episodes. No joint pain, skin rash, enlarged lymph nodes or vomiting.The patient has had a mild nonproductive cough. All other systems reviewed and are negative.PAST HISTORYSee nurses notes. Problems: ITP. Migraine Headache. Idiopathic thrombocytopenia purpura. Hyperthyroidism. Chronic Headache. Bipolar Disorder. Borderline personality disorder. Schizophrenia. UTI - Urinary Tract Infection. Seasonal allergic rhinitis. Additional Surgeries: . (X4) Tonsillectomy. Tubal Ligation. Medications: Propanolol. Allergies: Morphine and Related.(hives, rash). 2 Clinical Report - Physicians/Mid Levels [facility] Emergency Department [address] [place] [address] Phone #: [phone] 02/22/2021 07:40 Patient: DOROTEO AC Sex: F : 1985 Age: 35ySOCIAL HISTORYLight tobacco smoker- less than 1/2 a pack per day. Occasional alcohol use. Heavy drug use:marijuana.ADDITIONAL NOTESThe nursing notes have been reviewed with agreement regarding the chief complaint, HPI, ROS, PMH andpatient medications and allergies.PHYSICAL EXAMVital Signs: 02/22/2021 07:41 BP: 135/92. MAP: 106. HR: 105. RR: 18. O2 saturation: 99%. Temp: 98 F.Pain level now: 5/10. Have been reviewed and appear to be correct.PROGRESS AND PROCEDURESCourse of Care: 07:59 02/22/21. pt was initially rude to senior sustainability consultant, berated her, then I came into roomafterwards taking usually History, on side of stretcher, and was about to do physical exam, she shouted atme "move away, you're making me feel uncomfortable, I'm leaving"; so I answered back, " I'm not sure whyyou are saying that, I'm here to help you", and she interrupted me repeating, "please leave the room, you'remaking feel uncomfortable", so I left the room; she came out and told the RN's at nurse's station, "I'm goingto leave because he's making me feel uncomfortable"; and she left the ER (LWBS).CLINICAL IMPRESSION Acute sore throat. Left Without Being Seen.INSTRUCTIONS Eloped: Patient left the Emergency Department; (during history taking). Notified the charge nurse and primary nurse of patient departure. Stated is leaving the ED due to personal reasons.(Electronically signed by Nadya Awad M.D. 02/22/2021 08:21) Name Value Range Interpretation Code Description Data Kayleen rce(s) Supporting Document(s) ID Date Data Source [id number] 02/17/2021 02:29:00 PM EDT [facility] ([facility]) Name Value Range Interpretation Code Description Data Kayleen rce(s) Supporting Document(s) Z#Other Observations Laboratory test result [facility] ([facility]) ID Date Data Source [id number] 02/17/2021 02:29:00 PM EDT [facility] ([facility]) Name Value Range Interpretation Code Description Data Kayleen rce(s) Supporting Document(s) Chlamydia trachomatis rRNA [Presence] in Unspecified s pecimen by DNA probe Laboratory test result [facility] ([facility]) Neisseria gonorrhoeae DNA [Presence] in Cervical mucus by Probe and target amplification method Laboratory test result [facility] ([facility]) ID Date Data Source [id number] 02/17/2021 02:27:00 PM EDT [facility] ([facility]) Name Value Range Interpretation Code Description Data Kayleen rce(s) Supporting Document(s) Source: Laboratory test result [facility] ([facility]) {SOURCE: Genital Isabela species Laboratory test result Abnormal (applies to non-numeric results) [facility] ([facility]) {SOURCE: Genital Gardnerella vaginalis Laboratory test result Abn ormal (applies to non-numeric results) [facility] ([facility]) {SOURCE: Genital Trichomonas vaginalis Laboratory test result [facility] ([facility]) {SOURCE: Genital ID Date Data Source [id number] 02/17/2021 02:27:00 PM EDT [facility] ([facility]) Name Value Range Interpretation Code Description Data Kayleen rce(s) Supporting Document(s) Chlamydia by Tracey Laboratory test result [facility] ([facility]) {SOURCE: Genital Gonococcus by Tracey Laboratory test result [facility] ([facility]) {SOURCE: Genital Source: Laboratory test result [facility] ([facility]) {SOURCE: Genital Trich vag by Tracey Laboratory test result [facility] ([facility]) {SOURCE: Genital ID Date Data Source [id number] 02/17/2021 02:27:00 PM EDT [facility] ([facility]) Name Value Range Interpretation Code Description Data Kayleen rce(s) Supporting Document(s) Treponema pallidum IgG Ab [Presence] in Serum Laboratory test result [facility] ([facility]) Laboratory test finding (navigational concept) Laboratory test result [facility] ([facility]) Hepatitis B virus surface Ag [Presence] in Serum or Pl asma by Immunoassay Laboratory test result [facility] ([facility]) ID Date Data Source [id number] 02/17/2021 02:27:00 PM EDT [facility] ([facility]) Name Value Range Interpretation Code Description Data Kayleen rce(s) Supporting Document(s) Hepatitis C virus Ab [Units/volume] in Serum by Immuno assay Laboratory test result [facility] ([facility]) ID Date Data Source [id number] 02/17/2021 02:27:00 PM EDT [facility] ([facility]) Name Value Range Interpretation Code Description Data Kayleen rce(s) Supporting Document(s) Treponema pallidum Ab [Presence] in Serum Laboratory test result [facility] ([facility]) ID Date Data Source [id number] 02/20/2021 06:44:00 AM EDT [facility] Name Value Range Interpretation Code Description Data Kayleen rce(s) Supporting Document(s) SOURCE: Genital [facility] Chlamydia trachomatis rRNA [Presence] in Unspecified specimen by Probe and target amplification method Negative Negative [facility] Neisseria gonorrhoeae rRNA [Presence] in Unspecified specimen by Probe and target amplification method Negative Negative [facility] Trichomonas vaginalis DNA [Presence] in Unspecified specimen by Probe and target amplification method Negative Negative [facility] ID Date Data Source [id number] 02/19/2021 07:41:00 PM EDT [facility] Name Value Range Interpretation Code Description Data Kayleen rce(s) Supporting Document(s) [facility]a sp rRNA [Presence] in Vaginal fluid by DNA probe Positive N egative [facility] Gardnerella vaginalis rRNA [Presence] in Genital specimen by DNA probe Positive Negative A [facility] Trichomonas vaginalis rRNA [Presence] in Genital specimen by DNA probe Negative Negative [facility] ID Date Data Source [id number] 02/17/2021 02:05:00 PM EDT [facility] ([facility]) Name Value Range Interpretation Code Description Data Kayleen rce(s) Supporting Document(s) Laboratory test finding (navigational concept) Laboratory test result [facility] ([facility]) .~.~R30.0 Color Laboratory test result [facility] ([facility]) .~.~R30.0 Source Laboratory test result [facility] ([facility]) .~.~R30.0 Clarity Laboratory test result [facility] ([facility]) .~.~R30.0 Spec [place] 1.020 1.001-1.030 [facility] ([facility]) .~.~R30.0 pH 6 5-9 [facility] ([facility]) .~.~R30.0 Bilirubin Laboratory test result [facility] ([facility]) .~.~R30.0 Glucose Laboratory test result [facility] ([facility]) .~.~R30.0 Ketone Laboratory test result [facility] ([facility]) .~.~R30.0 Protein 15 [facility] ([facility]) .~.~R30.0 Nitrite Laboratory test result [facility] ([facility]) .~.~R30.0 Blood 10 Abnormal (applies to non-numeric res ults) [facility] ([facility]) .~.~R30.0 Urobilinogen Laboratory test result [facility] ([facility]) .~.~R30.0 Microscopic Laboratory test result M [facility] ([facility]) .~.~R30.0 Leuk Est 25 [facility] ([facility]) .~.~R30.0 RBC Laboratory test result [facility] ([facility]) .~.~R30.0 WBC Laboratory test result Abnormal (applies to non -numeric results) [facility] ([facility]) .~.~R30.0 Bacteria Laboratory test result Abnormal (applies to non -numeric results) [facility] ([facility]) .~.~R30.0 Epithelial Laboratory test result [facility] ([facility]) .~.~R30.0 Mucous Laboratory test result [facility] ([facility]) .~.~R30.0 Yeast Laboratory test result Abnormal (applies to non -numeric results) [facility] ([facility]) .~.~R30.0 ID Date Data Source [id number] 02/17/2021 02:05:00 PM EDT [facility] ([facility]) Name Value Range Interpretation Code Description Data Kayleen rce(s) Supporting Document(s) Culture Urine Laboratory test result [facility] ([facility]) .~.~R30.0 ID Date Data Source [id number] 02/24/2021 02:06:00 PM EDT [facility] Name Value Range Interpretation Code Description Data Kayleen rce(s) Supporting Document(s) CULTURE URINE [facility] _CULTURE URINE_$$[id number]$$[id number]$$176081$$981307$$448360$$822221$$358310$$879332$$732797$$ 147096$$016410$$317453$$356395$$840273$$845413$$489654$$904316$$636778$$364323$$ 688269$$020418$$350221$$142732$$516046$$361840$$384398$$122457 -- Continued on next page --Patient: OSORIO SADLER L Order: [id number] Page 2Culture: CULTURE URINE Status: Final ==== -- Continued on next page --Patient: OSORIO SADLER L Order: [id number] Page 2Culture: CULTURE URINE Status: Prelim ===== -- Continued on next page --Patient: OSORIO SADLER L Order: [id number] Page 2Culture: CULTURE URINE Status: Prelim =====$$[id number]$$[id number] DATE/TIME: 02/24/2021 12:06Culture: CULTURE URINE Status: FinalIsolate 1 Escherichia coli Flag: A . . . . . . .1Greater than 100,000 colony forming units per mLCefazolin <=4 ug/mLCefazolin with an BEATRIS <=16 predicts susceptibility to the oral agentscefaclor, cefdinir, cefpodoxime, cefprozil, cefuroxime, cephalexin,and loracarbef when used for therapy of uncomplicated urinary tractinfections due to E. coli, Klebsiella pneumoniae, and Proteusmirabilis. Previous result entered on 02/23/2021 09:26 ET Escherichia coliSusceptibility results being verified. Final report to follow. Previous result entered on 02/21/2021 07:12 ET Gram negative rodsUrine Culture,Comprehensive: [id number] coli Flag: APatient: OSORIO SADLER Diogo Order: [id number] Page 3Culture: CULTURE URINE Status: Final ====ISOLATE 1 Escherichia coli Isolate 1Antibiotic BEATRIS IntUnits ug/mL ----Amoxicillin/Clavulanic Acid S S . . . . . .20-8Ampicillin S S . . . . . .28-1Cefepime S S . . . . . .6644-9Ceftriaxone S S . . . . . .141-2Cefuroxime S S . . . . . .145- 3Ciprofloxacin S S . . . . . .185-9Ertapenem S S . . . . . .73126-3Kfwcyvqxvl S S . . . . . .267-5Imipenem S S . . . . . .279-0Levofloxacin S S . . . . . .77625-1Sxhctvtju S S . . . . . .6652-2Nitrofurantoin S S . . . . . .363- 2Piperacillin/Tazobactam S S . . . . . .412-7Tetracycline S S . . . . . .496-0Tobramycin S S . . . . . .508-2Trimethoprim/Sulfa S S . . . . . .516-5P1 Test performed by: [facility] #: [id number] [address] [id number] [facility] [id number] Director : Pacheco Castillo MD NPI #:Banking Manager : 02/22/21.0645.XMT.SENT REF 02/23/21.1623.XMT.SENT REF 02/24/21.1406.XMT.SENT REF ID Date Data Source [id number] 02/17/2021 08:53:00 PM EDT [facility] Name Value Range Interpretation Code Description Data Kayleen rce(s) Supporting Document(s) UA REFLEX TO UA CULTURE [facility] URINALYSIS SOURCE R [facility] COLOR yellow NORMAL: Yellow [facility] CLARITY hazy NORMAL: Clear [facility] Specific gravity of Urine by Test strip 1.020 1.001 - 1.030 [facility] pH 6 5 - [address] [facility] Glucose [Mass/volume] in Urine by Test strip NORM NORMAL: Negat [facility] Bilirubin.total [Presence] in Urine by Test strip NEG NORMAL: Negative [facility] Ketones [Presence] in Urine by Test strip NEG NORMAL: Negative [facility] Protein [Mass/volume] in Urine by Test strip 15 NORMAL: Negat [facility] Nitrite [Presence] in Urine by Test strip POS NORMAL: Negative [facility] BLOOD 10 NORMAL: Negative A [facility] Leukocyte esterase [Presence] in Urine by Test strip 25 CRISTINE L: Negative [facility] Urobilinogen [Mass/volume] in Urine by Test strip NOR less chrystal n 1.0 mg/dL [facility] MICROSCOPIC See Below [facility] ital WBC 5 - 7 NORMAL: NONE SEEN A [facility] Erythrocytes [#/volume] in Urine by Test strip 1 - 3 NORMAL: NON E SEEN [facility] EPITHELIAL None Seen NORMAL: NONE SEEN [facility] Bacteria [Presence] in Urine sediment by Light microscopy 3+ LARGE NORMAL: NONE SEEN A [facility] Mucus [Presence] in Urine sediment by Light microscopy 1+ NOR MAL: NONE SEEN [facility] YEAST Few A [facility] HYPAE YEAST ID Date Data Source [id number] 01/24/2021 02:54:00 PM EDT [facility] ([facility]) Name Value Range Interpretation Code Description Data Kayleen rce(s) Supporting Document(s) Laboratory test finding (navigational concept) Laboratory test result [facility] ([facility]) Sars-CoV-2, Tracey Laboratory test result [facility] ([facility]) This nucleic acid amplification test was developed and its performance characteristics determined by [facility] [place]. Nucleic acid amplification tests include RT-PCR and [...] negative (not detected) result in this assay. ID Date Data Source [id number] 01/27/2021 03:33:00 PM EDT [facility] Name Value Range Interpretation Code Description Data Kayleen rce(s) Supporting Document(s) SARS-CoV-2, TRACEY Not Detected Not Detected [facility] This nucleic acid amplification test was developed and its performancecharacteristics determined by [facility]. Nucleic acidamplification tests include RT-PCR and TMA. This test has not beenFDA cleared or approved. This test has been authorized by FDA underan Emergency Use Authorization (EUA). This test is only authorizedfor the duration of time the declaration that circumstances existjustifying the authorization of the emergency use of in vitrodiagnostic tests for detection of SARS-CoV-2 virus and/or diagnosisof COVID-19 infection under section 564(b)(1) of the Act, 21 U.S.C.360bbb-3(b) (1), unless the authorization is terminated or revokedsooner.When diagnostic testing is negative, the possibility of a falsenegative result should be considered in the context of a patient'srecent exposures and the presence of clinical signs and symptomsconsistent with COVID- 19. An individual without symptoms of COVID-19and who is not shedding SARS-CoV-2 virus would expect to have anegative (not detected) result in this assay. SARS-CoV-2, TRACEY 2 DAY TAT Performed [facility] ID Date Data Source [id number] 01/24/2021 02:53:00 PM EDT [facility] Name Value Range Interpretation Code Description Data Kayleen rce(s) Supporting Document(s) SARS coronavirus 2 RNA Not Detected [facility] This lab was ordered by [facility] Eric ceballos and reported by [facility]. ID Date Data Source [id number] 01/06/2021 02:11:00 PM EDT [facility] ([facility]) Name Value Range Interpretation Code Description Data Kayleen rce(s) Supporting Document(s) White Blood Count 9.9 10 4.0-10.0 Normal (applies to non-numeri c results) [facility] ([facility]) Red Blood Count 4.22 10 4.00-5.40 Normal (applies to non-numeric results) [facility] ([facility]) Hemoglobin 13.1 g/dL 12.0-15.5 Normal (applies to non-numeric resul ts) [facility] ([facility]) Hematocrit 39.7 % 36.0-47.0 Normal (applies to non-numeric resul ts) [facility] ([facility]) Mean Corpuscular Volume 94.1 fl 80.0-96.0 Normal ( applies to non-numeric results) [facility] ([facility]) Mean Corpuscular Hemoglobin 31.0 pg 27.0-33.0 Norm al (applies to non-numeric results) [facility] ([facility]) Mean Corpuscular HGB Conc 33.0 g/dL 32.0-36.5 Normal (applies to non-numeric results) [facility] ([facility]) Neutrophils % 64.3 % 36.0-66.0 Normal (applies to non-numeric re sults) [facility] ([facility]) Red Cell Distribution Width 14.5 % 11.5-14.5 Norm al (applies to non-numeric results) [facility] ([facility]) Platelet Count, Automated 245 10 150-450 Normal (applies to non-numeric results) [facility] ([facility]) Lymph % 27.1 % 24.0-44.0 Normal (applies to non-numeric resul ts) [facility] ([facility]) [place] % 6.4 % 2.0-8.0 Normal (applies to non-numeric resul ts) [facility] ([facility]) Eos % 1.5 % 0.0-3.0 Normal (applies to non-numeric resul ts) [facility] ([facility]) Baso % 0.3 % 0.0-1.0 Normal (applies to non-numeric resul ts) [facility] ([facility]) Immature Granulocyte % 0.4 % 0-3.0 Normal (applies to non-n umeric results) [facility] ([facility]) Nucleated Red Blood Cell % 0.0 % 0-0 Normal (applies to n on-numeric results) [facility] ([facility]) Neutrophils # 6.4 10 1.5-8.5 Normal (applies to non-numeric re sults) [facility] ([facility]) [place] # 0.6 10 0.0-0.8 Normal (applies to non-numeric resul ts) [facility] ([facility]) Lymph # 2.7 10 1.5-5.0 Normal (applies to non-numeric resul ts) [facility] ([facility]) Baso # 0.0 10 0.0-0.2 Normal (applies to non-numeric resul ts) [facility] ([facility]) Eos # 0.2 10 0.0-0.5 Normal (applies to non-numeric resul ts) [facility] ([facility]) ID Date Data Source [id number] 01/06/2021 02:11:00 PM EDT [facility] ([facility]) Name Value Range Interpretation Code Description Data Kayleen rce(s) Supporting Document(s) Glucose, Fasting 109 mg/dL 70-100 Above high normal [facility] Glomerular Filtration Rate Laboratory test result Normal (applies to non- numeric results) [facility] ([facility]) <content>Units are mL/min/1.73 m2</content>
<content></content>
<content>Chronic Kidney Disease Staging per NKF:</content>
<content></content>
<content>Stage I & II GFR >=60 Normal to Mildly Decreased</content>
<content>Stage III GFR 30- 59 Moderately Decreased</content>
<content>Stage IV GFR 15-29 Severely Decreased</content>
<content>Stage V GFR <15 Very Little GFR Left</content>
<content>ESRD GFR <15 on ASSISTANT PROGRAM DIRECTOR</content>
<content></content> Blood Urea Nitrogen 14 mg/dL 7-18 Normal (applies to non-nume javier results) [facility] ([facility]) Creatinine For GFR 0.66 mg/dL 0.55-1.30 Normal (applies to non -numeric results) [facility] ([facility]) Sodium Level 141 meq/L 136-145 Normal (applies to non-numeric res ults) [facility] ([facility]) Chloride Level 111 meq/L 98-107 Above high normal [facility] ([facility]) Potassium Serum 3.9 meq/L 3.5-5.1 Normal (applies to non-numeric results) [facility] Anion Gap 4 meq/L 8-16 Below low normal [facility] ( [facility]) Carbon Dioxide Level 26 meq/L 21-32 Normal (applies to non-num davida results) [facility] Ast/Sgot 12 U/L 7-37 Normal (applies to non-numeric resul ts) [facility] ([facility]) Alt/SGPT 18 U/L 12-78 Normal (applies to non-numeric resul ts) [facility] ([facility]) Calcium Level 8.9 mg/dL 8.5-10.1 Normal (applies to non-numeric re sults) [facility]) Alkaline Phosphatase 76 U/L 45-117 Normal (applies to non-num davida results) [facility] ([facility]) Bilirubin,Total 0.5 mg/dL 0.2-1.0 Normal (applies to non-numeric results) [facility] ([facility]) Total Protein 7.2 GM/DL 6.4-8.2 Normal (applies to non-numeric re sults) [facility] ([facility]) Albumin/Globulin Ratio 1.2 1.2-2.2 Normal (applies to non-n umeric results) [facility] ([facility]) Albumin 3.9 GM/DL 3.2-5.2 Normal (applies to non-numeric resul ts) [facility] ([facility]) ID Date Data Source [id number] 01/06/2021 02:11:00 PM EDT [facility] ([facility]) Name Value Range Interpretation Code Description Data Kayleen rce(s) Supporting Document(s) Iron (Fe) 78 ug/dL 50-170 Normal (applies to non-numeric resul ts) [facility]) Percent Saturation 30.5 % 13.2-45.0 Normal (applies to non-numer ic results) [facility] ([facility]) Total Iron Binding Capacity 256 ug/dL 250-450 Norm al (applies to non-numeric results) [facility]) ID Date Data Source [id number] 01/06/2021 02:11:00 PM EDT [facility] ([facility]) Name Value Range Interpretation Code Description Data Kayleen rce(s) Supporting Document(s) Ferritin [Mass/volume] in Serum or Plasma 73 ng/mL 8-252 Normal (applies to non- numeric results) [facility] ([facility]) <content>note:<nlbl:demographic_changed> </content>
<content></content> ID Date Data Source [id number] 11/20/2020 01:35:00 PM EDT [facility] ([facility]) Name Value Range Interpretation Code Description Data Kayleen rce(s) Supporting Document(s) Laboratory test finding (navigational concept) Laboratory test result [facility] ([facility]) Sars-CoV-2, Tracey Laboratory test result [facility] ([facility]) This nucleic acid amplification test was developed and its performance characteristics determined by [facility]. Nucleic acid amplification tests include RT-PCR and [...] negative (not detected) result in this assay. ID Date Data Source [id number] 11/22/2020 12:30:00 PM EDT [facility] Name Value Range Interpretation Code Description Data Kayleen rce(s) Supporting Document(s) SARS-CoV-2, TRACEY Not Detected Not Detected [facility] This nucleic acid amplification test was developed and its performancecharacteristics determined by [facility]. Nucleic acidamplification tests include RT-PCR and TMA. This test has not beenFDA cleared or approved. This test has been authorized by FDA underan Emergency Use Authorization (EUA). This test is only authorizedfor the duration of time the declaration that circumstances existjustifying the authorization of the emergency use of in vitrodiagnostic tests for detection of SARS-CoV-2 virus and/or diagnosisof COVID-19 infection under section 564(b)(1) of the Act, 21 U.S.C.360bbb-3(b) (1), unless the authorization is terminated or revokedsooner.When diagnostic testing is negative, the possibility of a falsenegative result should be considered in the context of a patient'srecent exposures and the presence of clinical signs and symptomsconsistent with COVID- 19. An individual without symptoms of COVID-19and who is not shedding SARS-CoV-2 virus would expect to have anegative (not detected) result in this assay. SARS-CoV-2, TRACEY 2 DAY TAT Performed [facility] ID Date Data Source [id number] 11/20/2020 01:35:00 PM EDT [facility] Name Value Range Interpretation Code Description Data Kayleen rce(s) Supporting Document(s) SARS coronavirus 2 RNA Not Detected [facility] This lab was ordered by [facility] Eric ceballos and reported by [facility]. ID Date Data Source [id number] 11/17/2020 01:31:00 PM EDT [facility] ([facility]) Name Value Range Interpretation Code Description Data Kayleen rce(s) Supporting Document(s) Comprehensive [facility] Laboratory test result [facility] ([facility]) Is patient fasting? N Chloride 104 meq/L 98-107 [facility] ([facility]) Is patient fasting? N Sodium 138 meq/L 134-153 [facility] ([facility]) Is patient fasting? N Potassium 4.2 meq/L 3.6-5.0 [facility] ([facility]) Is patient fasting? N Glucose 106 mg/dL 70-99 Above high normal [facility] [facility] Is patient fasting? N Co2 24 meq/L 22-30 [facility] ([facility]) Is patient fasting? N BUN 8 mg/dL 7-21 [facility] ([facility]) Is patient fasting? N Creatinine 0.6 mg/dL 0.7-1.5 Below low normal [facility] ( [facility]) Is patient fasting? N BUN/Creat 13 8-27 [facility] ([facility]) Is patient fasting? N Total Protein 6.8 g/dL 6.3-8.2 [facility] Is patient fasting? N Globulin 2.3 GM/DL 2.4-3.2 Below low normal [facility] ( [facility]) Is patient fasting? N Albumin 4.5 g/dL 3.9-5.0 [facility] Is patient fasting? N A/G Ratio 2.0 0.8-2.0 [facility] ([facility]) Is patient fasting? N Calcium 9.3 mg/dL 8.4-10.2 [facility] ([facility]) Is patient fasting? N Alkaline Phos 89 U/L 38-126 [facility] ([facility]) Is patient fasting? N Total Bili Laboratory test result 0.2-1.3 [facility] ([facility]) Is patient fasting? N Sgot/Ast 16 U/L 5-40 [facility] ([facility]) Is patient fasting? N SGPT/Alt 7 U/L 7-56 [facility] ([facility]) Is patient fasting? N Age 35 yrs [facility] ([facility]) Is patient fasting? N Anion Gap 10.0 mmol/L 8.0-16.0 [facility]) Is patient fasting? N Afr Amer GFR Laboratory test result [facility] ([facility]) Is patient fasting? N Non-Aa GFR Laboratory test result [facility] ([facility]) Is patient fasting? N ID Date Data Source [id number] 11/17/2020 01:31:00 PM EDT [facility] ([facility]) Name Value Range Interpretation Code Description Data Kayleen rce(s) Supporting Document(s) Calcidiol [Mass/volume] in Serum or Plasma 19 ng/mL [facility] ([facility]) Is patient fasting? N Cobalamin (Vitamin B12) [Mass/volume] in Serum or Plasma 204 pg/ mL 232-1245 Below low normal [facility] ([facility]) Is patient fasting? N ID Date Data Source [id number] 11/17/2020 01:31:00 PM EDT [facility] ([facility]) Name Value Range Interpretation Code Description Data Kayleen rce(s) Supporting Document(s) CBC W/Automated Diff Laboratory test result [facility] ([facility]) Is patient fasting? N WBC 10.1 10^3/uL 4.2-11.0 [facility] ([facility]) Is patient fasting? N Hematocrit 41.2 % 37.0-47.0 [facility] ([facility]) Is patient fasting? N RBC 4.55 10^6/uL 4.20-5.40 [facility] ([facility]) Is patient fasting? N Hemoglobin 13.7 g/dL 12.0-16.0 [facility] ([facility]) Is patient fasting? N MCH 30.1 pg 27.0-34.0 [facility] ([facility]) Is patient fasting? N MCV 90.5 fL 81.0-101 [facility] ([facility]) Is patient fasting? N Platelets 259 10^3/uL 150-450 [facility] ([facility]) Is patient fasting? N MCHC 33.3 g/dL 31.0-36.0 [facility] ([facility]) Is patient fasting? N RDW 15.1 % 11.5-14.5 Above high normal [facility] ([facility]) Is patient fasting? N Lymph 34.6 % 25.0-40.0 [facility] ([facility]) Is patient fasting? N MPV 9.1 fL 7.4-10.4 [facility] ([facility]) Is patient fasting? N Neut 54.3 % 37.0-80.0 [facility] ([facility]) Is patient fasting? N Eos 2.8 % 0.0-7.0 [facility] ([facility]) Is patient fasting? N [place] 7.5 % 3.0-8.0 [facility] ([facility]) Is patient fasting? N Baso 0.4 % 0.0-2.5 [facility] ([facility]) Is patient fasting? N %NRBC 0.0 % 0.0-0.0 [facility] ([facility]) Is patient fasting? N %Ig 0.4 % 0.0-0.0 Above high normal [facility] ([facility]) Is patient fasting? N #Neut 5.48 10^3/uL 2.00-6.90 [facility] ([facility]) Is patient fasting? N #Lymph 3.49 10^3/uL 0.60-3.40 Above high normal [facility] ([facility]) Is patient fasting? N #[place] 0.76 10^3/uL 0.00-0.90 [facility] ([facility]) Is patient fasting? N #Eos 0.28 10^3/uL 0.00-0.70 [facility] ([facility]) Is patient fasting? N #Baso 0.04 10^3/uL 0.00-0.20 [facility] ([facility]) Is patient fasting? N #Ig 0.04 10^3/uL 0.00-0.10 [facility] ([facility]) Is patient fasting? N #NRBC 0.00 10^3/uL 0.00-0.00 [facility] ([facility]) Is patient fasting? N Manual Diff Laboratory test result [facility] ([facility]) Is patient fasting? N RBC Morph Laboratory test result [facility] ([facility]) Is patient fasting? N ID Date Data Source [id number] 11/17/2020 01:31:00 PM EDT [facility] ([facility]) Name Value Range Interpretation Code Description Data Kayleen rce(s) Supporting Document(s) Uibc 173 ug/dL 112-347 [facility] ([facility]) Is patient fasting? N Iron 58 ug/dL 42-135 [facility] ([facility]) Is patient fasting? N Tibc 231 ug/dL 250-450 Below low normal [facility] ( [facility]) Is patient fasting? N Iron Sat 25 % [facility] ([facility]) Is patient fasting? N ID Date Data Source [id number] 11/17/2020 01:31:00 PM EDT [facility] ([facility]) Name Value Range Interpretation Code Description Data Kayleen rce(s) Supporting Document(s) Iron binding capacity [Mass/volume] in Serum or Plasma Laborator y test result [facility] ([facility]) Iron [Mass/volume] in Serum or Plasma Laboratory test result [facility] ([facility]) Ferritin [Mass/volume] in Serum or Plasma 63.5 ng/mL 3.0-105 [facility] ([facility]) Is patient fasting? N ID Date Data Source [id number] 11/17/2020 06:29:00 PM EDT [facility] Name Value Range Interpretation Code Description Data Kayleen rce(s) Supporting Document(s) COMPREHENSIVE METABOLIC PANEL [facility] COMPREHENSIVE METABOLIC PANEL Sodium [Moles/volume] in Serum or Plasma 138 mEq/L 134 - 153 [facility] Potassium [Moles/volume] in Serum or Plasma 4.2 mEq/L 3.6 - 5.0 [facility] Chloride [Moles/volume] in Serum or Plasma 104 mEq/L 98 - 107 [facility] Carbon dioxide, total [Moles/volume] in Serum or Plasma 24 MEQ/L 22 - 30 [facility] Glucose [Mass/volume] in Serum or Plasma 106 MG/DL 70 - 99 H [facility] BUN 8 MG/DL 7 [facility] Creatinine [Mass/volume] in Serum or Plasma 0.6 MG/DL 0.7 - 1.5 L [facility] BUN/CREAT 13 8 - 27 [facility] Protein [Mass/volume] in Serum or Plasma 6.8 G/DL 6.3 - 8.2 [facility] Albumin [Mass/volume] in Serum or Plasma 4.5 G/DL 3.9 - 5.0 [facility] Globulin [Mass/volume] in Serum by calculation 2.3 GM/DL 2.4 - 3.2 L [facility] A/G RATIO 2.0 0.8 - 2.0 [facility] Calcium [Mass/volume] in Serum or Plasma 9.3 MG/DL 8.4 - 10.2 [facility] Bilirubin.total [Mass/volume] in Serum or Plasma <0.7 MG/DL 0.2 - 1.3 [facility] Alkaline phosphatase [Enzymatic activity/volume] in Serum or Plasma 89 U/L 38 - 126 [facility] Aspartate aminotransferase [Enzymatic activity/volume] in Serum or Plasma 16 U/L 5 - 40 [facility] Alanine aminotransferase [Enzymatic activity/volume] in Seru m or Plasma 7 U/L 7 - 56 [facility] Anion gap 3 in Serum or Plasma 10.0 mmol/L 8.0 - 16.0 [facility] AGE 35 yrs [facility] al NON-AA GFR >60 mL/min [facility] ital AFR AMER GFR >60 mL/min [facility] spital Male GFR In terprentation 20-49 yrs >60 mL/min Normal 50-59 yrs >56 mL/min Normal 60-69 yrs >49 mL/min Normal 70-79yrs >42 mL/min Normal 80 and above >35 mL/min Normal Female GFR Interpretation 20-39 yrs >60 mL/min Normal 40-49 yrs >58 mL/min Normal 50-59 yrs >51 mL/min Normal 60-69 yrs >45 mL/min Normal 70-79 yrs >39 mL/min Normal 80 and above >32 mL/min Normal ID Date Data Source [id number] 11/17/2020 06:00:00 PM EDT [facility] Name Value Range Interpretation Code Description Data Kayleen rce(s) Supporting Document(s) Cobalamin (Vitamin B12) [Mass/volume] in Serum or Plasma 204 PG/ML 232 - 1245 L [facility] ID Date Data Source [id number] 11/17/2020 05:58:00 PM EDT [facility] Name Value Range Interpretation Code Description Data Kayleen rce(s) Supporting Document(s) Calcidiol [Moles/volume] in Serum or Plasma 19 NG/ML [facility] VITAMIN-D(2 5HYDROXY) Deficiency: <=20 ng/ml Insufficiency: 21-29 ng/ml Preferred level: => 30 ng/ml ID Date Data Source [id number] 11/17/2020 05:58:00 PM EDT [facility] Name Value Range Interpretation Code Description Data Kayleen rce(s) Supporting Document(s) Ferritin [Mass/volume] in Serum or Plasma 63.5 ng/mL 3.0 - 105 [facility] ID Date Data Source [id number] 11/17/2020 05:36:00 PM EDT [facility] Name Value Range Interpretation Code Description Data Kayleen rce(s) Supporting Document(s) Iron [Mass/volume] in Serum or Plasma 58 UG/DL 42 - 135 [facility] Iron binding capacity.unsaturated [Mass/volume] in Serum or Plasma 173 UG/DL 112 - 347 [facility] Iron binding capacity [Mass/volume] in Serum or Plasma 231 ug/dL 250 - 450 L [facility] Iron saturation [Mass Fraction] in Serum or Plasma 25 % [facility] ID Date Data Source [id number] 11/17/2020 05:32:00 PM EDT [facility] Name Value Range Interpretation Code Description Data Kayleen rce(s) Supporting Document(s) CBC W/AUTOMATED DIFF [facility] COMPLETE BLOOD COUNT Leukocytes [#/volume] in Blood by Automated count 10.1 10^3/uL 4.2 - 11.0 [facility] Erythrocytes [#/volume] in Blood by Automated count 4.55 10^6/uL 4. 20 - 5.40 [facility] Hemoglobin [Mass/volume] in Blood 13.7 g/dL 12.0 - 16.0 [facility] Hematocrit [Volume Fraction] of Blood by Automated count 41.2 % 3 7.0 - 47.0 [facility] Erythrocyte mean corpuscular volume [Entitic volume] by Auto mated count 90.5 fL 81.0 - 101 [facility] Erythrocyte mean corpuscular hemoglobin [Entitic mass] by Automated count 30.1 pg 27.0 - 34.0 [facility] Erythrocyte mean corpuscular hemoglobin concentration [Mass/volume] by Automated count 33.3 g/dL 31.0 - 36.0 [facility] Erythrocyte distribution width [Ratio] by Automated count 15.1 % 11.5 - 14.5 H [facility] Platelets [#/volume] in Blood by Automated count 259 10^3/uL 150 - 45 0 [facility] Platelet mean volume [Entitic volume] in Blood by Automated count 9.1 fL 7.4 - 10.4 [facility] Neutrophils/100 leukocytes in Blood by Automated count 54.3 % 37. 0 - 80.0 [facility] Lymphocytes/100 leukocytes in Blood by Manual count 34.6 % 25.0 - 40.0 [facility] Monocytes/100 leukocytes in Blood by Automated count 7.5 % 3.0 - 8.0 [facility] Eosinophils/100 leukocytes in Blood by Automated count 2.8 % 0.0 - 7.0 [facility] Basophils/100 leukocytes in Blood by Automated count 0.4 % 0.0 - 2.5 [facility] %IG 0.4 % 0.0 - 0.0 H [facility] al %NRBC 0.0 % 0.0 - 0.0 [facility] al Neutrophils [#/volume] in Blood by Automated count 5.48 10^3/uL 2.00 - 6.90 [facility] Lymphocytes [#/volume] in Blood by Automated count 3.49 10^3/uL 0.60 - 3.40 H [facility] Monocytes [#/volume] in Blood by Automated count 0.76 10^3/uL 0.00 - 0.90 [facility] Eosinophils [#/volume] in Blood by Automated count 0.28 10^3/uL 0.00 - 0.70 [facility] Basophils [#/volume] in Blood by Automated count 0.04 10^3/uL 0.00 - 0.20 [facility] #IG 0.04 10^3/uL 0.00 - 0.10 [facility] #NRBC 0.00 10^3/uL 0.00 - 0.00 [facility] MANUAL DIFF NOT INDICATED [facility] RBC MORPH NOT INDICATED [facility] spital ID Date Data Source [id number] 11/09/2020 12:38:00 PM EDT [facility] ([facility]) Name Value Range Interpretation Code Description Data Kayleen rce(s) Supporting Document(s) Thyrotropin [Units/volume] in Serum or Plasma 0.34 uIU/mL 0. 47-5.01 Below low normal [facility] ([facility]) Thyroxine (T4) free [Mass/volume] in Serum or Plasma 1.27 ng/dL 0.93- 1.70 [facility] ([facility]) ID Date Data Source [id number] 11/09/2020 12:38:00 PM EDT [facility] ([facility] ) Name Value Range Interpretation Code Description Data Kayleen rce(s) Supporting Document(s) Thyroxine (T4) free [Mass/volume] in Serum or Plasma 1.27 ng/dL 0.93- 1.70 [facility] ([facility]) Thyrotropin [Units/volume] in Serum or Plasma 0.34 uIU/mL 0.47-5.01 [facility] ([facility] ) ID Date Data Source [id number] 11/09/2020 08:25:00 PM EDT [facility] Name Value Range Interpretation Code Description Data Kayleen rce(s) Supporting Document(s) Thyrotropin [Units/volume] in Serum or Plasma by Detec tion limit <= 0.05 mIU/L 0.34 uIU/mL 0.47 - 5.01 L [facility] ID Date Data Source [id number] 11/09/2020 01:42:00 PM EDT [facility] Name Value Range Interpretation Code Description Data Kayleen rce(s) Supporting Document(s) Thyroxine (T4) free index in Serum or Plasma by calculation 1.27 NG/DL 0.93 - 1.70 [facility] ID Date Data Source [id number] 09/25/2020 03:37:00 PM EDT [facility] ([facility]) Name Value Range Interpretation Code Description Data Kayleen rce(s) Supporting Document(s) Coronavirus Covid-19 Laboratory test result [facility] ([facility]) This nucleic acid amplification test was developed and its performance characteristics determined by [facility] [place]. Nucleic acid amplification tests include RT-PCR and [...] negative (not detected) result in this assay. ID Date Data Source [id number] 09/25/2020 03:37:00 PM EDT [facility] ([facility]) Name Value Range Interpretation Code Description Data Kayleen rce(s) Supporting Document(s) Influenza virus B RNA [Presence] in Unsp ecified specimen by Probe and target amplification method Laboratory test result [facility] ([facility]) Influenza virus A RNA [Presence] in Unsp ecified specimen by Probe and target amplification method Laboratory test result [facility] ([facility]) ID Date Data Source [id number] 09/25/2020 03:37:00 PM [facility]T [facility] Name Value Range Interpretation Code Description Data Kayleen rce(s) Supporting Document(s) SARS coronavirus 2 RNA Not Detected [facility] This lab was ordered by [facility] lin and reported by [email or web address]. ID Date Data Source [id number] 09/28/2020 03:20:00 PM EDT [facility] Name Value Range Interpretation Code Description Data Kayleen rce(s) Supporting Document(s) SARS-CoV-2, TRACEY Not Detected Not Detected [facility] This nucleic acid amplification test was developed and its performancecharacteristics determined by [facility]. Nucleic acidamplification tests include RT-PCR and TMA. This test has not beenFDA cleared or approved. This test has been authorized by FDA underan Emergency Use Authorization (EUA). This test is only authorizedfor the duration of time the declaration that circumstances existjustifying the authorization of the emergency use of in vitrodiagnostic tests for detection of SARS-CoV-2 virus and/or diagnosisof COVID-19 infection under section 564(b)(1) of the Act, 21 U.S.C.360bbb-3(b) (1), unless the authorization is terminated or revokedsooner.When diagnostic testing is negative, the possibility of a falsenegative result should be considered in the context of a patient'srecent exposures and the presence of clinical signs and symptomsconsistent with COVID- 19. An individual without symptoms of COVID-19and who is not shedding SARS-CoV-2 virus would expect to have anegative (not detected) result in this assay. ID Date Data Source [id number] 09/03/2020 03:43:00 PM EDT [facility] ([facility]) Name Value Range Interpretation Code Description Data Kayleen rce(s) Supporting Document(s) Sars-CoV-2, Tracey Laboratory test result [facility] ([facility]) This nucleic acid amplification test was developed and its performance characteristics determined by [facility] [place]. Nucleic acid amplification tests include RT-PCR and [...] negative (not detected) result in this assay. Laboratory test finding (navigational concept) Laboratory test result [facility] ([facility]) ID Date Data Source [id number] 09/03/2020 03:43:00 PM EDT [facility] Name Value Range Interpretation Code Description Data Kayleen rce(s) Supporting Document(s) SARS coronavirus 2 RNA Not Detected [facility] [place] This lab was ordered by [facility] lin and reported by [facility]. ID Date Data Source [id number] 09/06/2020 07:21:00 AM EDT [facility] Name Value Range Interpretation Code Description Data Kayleen rce(s) Supporting Document(s) SARS-CoV-2, TRACEY Not Detected Not Detected [facility] This nucleic acid amplification test was developed and its performancecharacteristics determined by [facility] [place]. Nucleic acidamplification tests include RT-PCR and TMA. This test has not beenFDA cleared or approved. This test has been authorized by FDA underan Emergency Use Authorization (EUA). This test is only authorizedfor the duration of time the declaration that circumstances existjustifying the authorization of the emergency use of in vitrodiagnostic tests for detection of SARS-CoV-2 virus and/or diagnosisof COVID-19 infection under section 564(b)(1) of the Act, 21 U.S.C.360bbb-3(b) (1), unless the authorization is terminated or revokedsooner.When diagnostic testing is negative, the possibility of a falsenegative result should be considered in the context of a patient'srecent exposures and the presence of clinical signs and symptomsconsistent with COVID- 19. An individual without symptoms of COVID-19and who is not shedding SARS-CoV-2 virus would expect to have anegative (not detected) result in this assay. SARS-CoV-2, TRACEY 2 DAY TAT Performed [facility] ID Date Data Source [id number] 09/03/2020 03:43:00 PM EDT [facility] ([facility]) Name Value Range Interpretation Code Description Data Kayleen rce(s) Supporting Document(s) Covid-19 Laboratory test result [facility] ([facility]) ID Date Data Source [id number] 07/31/2020 01:04:00 PM EST [facility] ([facility]) Name Value Range Interpretation Code Description Data Kayleen rce(s) Supporting Document(s) [place] [Mass/volume] in Serum or Plasma 0.5 mmol/L 0.6-1.2 Below low normal [facility] ([facility]) <content>Detection Limit = 0.1</content>
<content><0.1 indicates None Detected</content>
<content></content> ID Date Data Source [id number] 07/31/2020 01:04:00 PM EST [facility] ([facility]) Name Value Range Interpretation Code Description Data Kayleen rce(s) Supporting Document(s) Cholesterol 218 mg/dL 131-200 Above high normal [facility] ([facility]) Is patient fasting? N Cve Panel Laboratory test result [facility] ([facility]) LIPID PANEL Triglycerides 89 mg/dL 35-160 [facility] ([facility]) Is patient fasting? N HDL 51 mg/dL 29-86 [facility] ([facility]) Is patient fasting? N LDL 170 mg/dL 65-175 [facility] ([facility]) Is patient fasting? N Risk Factor 4.3 3.2-4.4 [facility] ([facility]) Is patient fasting? N LDL/HDL 3.33 1.47-3.22 Above high normal [facility] ([facility]) CVE RISK CHOL/HDL LDL/HDL MEN: 1/2 AVERAGE 3.43 1.00 AVERAGE 4.97 3.55 2X AVERAGE 9.55 6.25 3X AVERAGE 23.99 7.99 WOMEN: 1/2 AVERAGE 3.27 1.47 AVERAGE 4.44 3.22 2X AVERAGE 7.05 5.03 3X AVERAGE 11.04 6.14 ID Date Data Source [id number] 07/31/2020 01:04:00 PM EST [facility] ([facility]) Name Value Range Interpretation Code Description Data Kayleen rce(s) Supporting Document(s) Hemoglobin A1c/Hemoglobin.total in Blood 5.1 % 4.4-6.1 [facility] ([facility]) {A1] {HB] ID Date Data Source [id number] 07/31/2020 01:04:00 PM EST [facility] ([facility]) Name Value Range Interpretation Code Description Data Kayleen rce(s) Supporting Document(s) Comprehensive [employer] Laboratory test result [facility] ([facility]) COMPREHENSIVE METABOLIC PANEL Sodium 139 meq/L 134-153 [facility] ([facility]) Is patient fasting? N Potassium 4.1 meq/L 3.6-5.0 [facility] ([facility]) Is patient fasting? N Chloride 105 meq/L 98-107 [facility] ([facility]) Is patient fasting? N Co2 26 meq/L 22-30 [facility] ([facility]) Is patient fasting? N Glucose 99 mg/dL 70-99 [facility] ([facility]) Is patient fasting? N BUN 13 mg/dL 7-21 [facility] ([facility]) Is patient fasting? N Creatinine 0.6 mg/dL 0.7-1.5 Below low normal [facility] ( [facility]) Is patient fasting? N Total Protein 6.7 g/dL 6.3-8.2 [facility] ([facility]) Is patient fasting? N BUN/Creat 22 8-27 [facility] ([facility]) Is patient fasting? N Albumin 4.4 g/dL 3.9-5.0 [facility] ([facility]) Is patient fasting? N Globulin 2.3 GM/DL 2.4-3.2 Below low normal [facility] ( [facility]) Is patient fasting? N A/G Ratio 1.9 0.8-2.0 [facility] Is patient fasting? N Calcium 9.1 mg/dL 8.4-10.2 [facility] ([facility]) Is patient fasting? N Total Bili Laboratory test result 0.2-1.3 [facility] ([facility]) Is patient fasting? N Alkaline Phos 67 U/L 38-126 [facility] ([facility]) Is patient fasting? N Sgot/Ast 12 U/L 5-40 [facility] ([facility]) Is patient fasting? N Anion Gap 8.0 mmol/L 8.0-16.0 [facility]) Is patient fasting? N SGPT/Alt 10 U/L 7-56 [facility] ([facility]) Is patient fasting? N Age 35 yrs [facility] ([facility]) Is patient fasting? N Non-Aa GFR Laboratory test result [facility] ([facility]) Is patient fasting? N Afr Amer GFR Laboratory test result [facility] ([facility]) Male GFR Interprentation 20-49 yrs >60 mL/min Normal 50-59 yrs >56 mL/min Normal 60-69 yrs >49 mL/min Normal 70-79yrs >42 mL/min Normal 80 and above >35 mL/min Normal Female GFR Interpretation 20-39 yrs >60 mL/min Normal 40-49 yrs >58 mL/min Normal 50-59 yrs >51 mL/min Normal 60-69 yrs >45 mL/min Normal 70-79 yrs >39 mL/min Normal 80 and above >32 mL/min Normal ID Date Data Source [id number] 07/31/2020 01:04:00 PM EST [facility] ([facility]) Name Value Range Interpretation Code Description Data Kayleen rce(s) Supporting Document(s) CBC W/Automated Diff Laboratory test result [facility] ([facility]) COMPLETE BLOOD COUNT WBC 11.1 10^3/uL 4.2-11.0 Above high normal [facility] ([facility]) Is patient fasting? N RBC 4.52 10^6/uL 4.20-5.40 [facility] ([facility]) Is patient fasting? N Hemoglobin 13.5 g/dL 12.0-16.0 [facility] ([facility]) Is patient fasting? N Hematocrit 40.8 % 37.0-47.0 [facility] ([facility]) Is patient fasting? N MCV 90.3 fL 81.0-101 [facility] ([facility]) Is patient fasting? N MCH 29.9 pg 27.0-34.0 [facility] ([facility]) Is patient fasting? N RDW 13.1 % 11.5-14.5 [facility] ([facility]) Is patient fasting? N MCHC 33.1 g/dL 31.0-36.0 [facility] ([facility]) Is patient fasting? N Platelets 239 10^3/uL 150-450 [facility] ([facility]) Is patient fasting? N MPV 8.3 fL 7.4-10.4 [facility] ([facility]) Is patient fasting? N Neut 49.1 % 37.0-80.0 [facility] ([facility]) Is patient fasting? N Lymph 40.2 % 25.0-40.0 Above high normal [facility] ([facility]) Is patient fasting? N Eos 2.8 % 0.0-7.0 [facility] ([facility]) Is patient fasting? N [place] 7.2 % 3.0-8.0 [facility] ([facility]) Is patient fasting? N Baso 0.5 % 0.0-2.5 [facility] ([facility]) Is patient fasting? N %Ig 0.2 % 0.0-0.0 Above high normal [facility] ([facility]) Is patient fasting? N %NRBC 0.0 % 0.0-0.0 [facility] ([facility]) Is patient fasting? N #Lymph 4.46 10^3/uL 0.60-3.40 Above high normal MEDEN T ([facility]) Is patient fasting? N #Neut 5.46 10^3/uL 2.00-6.90 [facility] ([facility]) Is patient fasting? N #[place] 0.80 10^3/uL 0.00-0.90 [facility] ([facility]) Is patient fasting? N #Baso 0.05 10^3/uL 0.00-0.20 [facility] ([facility]) Is patient fasting? N #Eos 0.31 10^3/uL 0.00-0.70 [facility] ([facility]) Is patient fasting? N #Ig 0.02 10^3/uL 0.00-0.10 [facility] ([facility]) Is patient fasting? N #NRBC 0.00 10^3/uL 0.00-0.00 [facility] ([facility]) Is patient fasting? N Manual Diff Laboratory test result M EDENT ([facility]) Is patient fasting? N RBC Morph Laboratory test result [facility] ([facility]) Is patient fasting? N ID Date Data Source [id number] 08/01/2020 04:29:00 PM [facility] Name Value Range Interpretation Code Description Data Kayleen rce(s) Supporting Document(s) [place] [Moles/volume] in Serum or Plasma 0.5 mmol/L 0.6-1.2 L [facility] Detection Limit = 0.1 <0.1 indicates None Detected ID Date Data Source [id number] 07/31/2020 02:11:00 PM [facility] Name Value Range Interpretation Code Description Data Kayleen rce(s) Supporting Document(s) CVE PANEL [facility] al LIPID PANEL Cholesterol [Mass/volume] in Serum or Plasma 218 MG/DL 131 - 200 H [facility] Deprecated Triglyceride [Mass/volume] in Serum or Plasma 89 MG/DL 3 5 - 160 [facility] HDL 51 MG/DL 29 - 86 [facility] al Cholesterol in LDL [Mass/volume] in Serum or Plasma by Direc t assay 170 mg/dL 65 - 175 [facility] Cholesterol.total/Cholesterol in HDL [Mass Ratio] in Serum o r Plasma 4.3 3.2 - 4.4 [facility] LDL/HDL 3.33 1.47 - 3.[address] [facility] ital CVE RISK CHOL/HDL LDL/HDLMEN: 1/2 AVERAGE 3.43 1.00 AVERAGE 4.97 3.55 2X AVERAGE 9.55 6.25 3X AVERAGE 23.99 7.99WOMEN: 1/2 AVERAGE 3.27 1.47 AVERAGE 4.44 3.22 2X AVERAGE 7.05 5.03 3X AVERAGE 11.04 6.14 ID Date Data Source [id number] 07/31/2020 02:11:00 PM EST [facility] Name Value Range Interpretation Code Description Data Kayleen rce(s) Supporting Document(s) COMPREHENSIVE METABOLIC PANEL [facility] COMPREHENSIVE METABOLIC PANEL Sodium [Moles/volume] in Serum or Plasma 139 mEq/L 134 - 153 [facility] Potassium [Moles/volume] in Serum or Plasma 4.1 mEq/L 3.6 - 5.0 [facility] Chloride [Moles/volume] in Serum or Plasma 105 mEq/L 98 - 107 [facility] Carbon dioxide, total [Moles/volume] in Serum or Plasma 26 MEQ/L 22 - 30 [facility] Glucose [Mass/volume] in Serum or Plasma 99 MG/DL 70 - 99 [facility] BUN 13 MG/DL 7 - 21 [facility] al Creatinine [Mass/volume] in Serum or Plasma 0.6 MG/DL 0.7 - 1.5 L [facility] BUN/CREAT 22 8 - 27 [facility] al Protein [Mass/volume] in Serum or Plasma 6.7 G/DL 6.3 - 8.2 [facility] Albumin [Mass/volume] in Serum or Plasma 4.4 G/DL 3.9 - 5.0 [facility] Globulin [Mass/volume] in Serum by calculation 2.3 GM/DL 2.4 - 3.2 L [facility] A/G RATIO 1.9 0.8 - 2.0 [facility] Calcium [Mass/volume] in Serum or Plasma 9.1 MG/DL 8.4 - 10.2 [facility] Bilirubin.total [Mass/volume] in Serum or Plasma <0.7 MG/DL 0.2 - 1.3 [facility] Alkaline phosphatase [Enzymatic activity/volume] in Serum or Plasma 67 U/L 38 - 126 [facility] Aspartate aminotransferase [Enzymatic activity/volume] in Serum or Plasma 12 U/L 5 - 40 [facility] Alanine aminotransferase [Enzymatic activity/volume] in Seru m or Plasma 10 U/L 7 - 56 [facility] Anion gap 3 in Serum or Plasma 8.0 mmol/L 8.0 - 16.0 [facility]GE [address] [facility]-AA GFR >60 mL/min [facility] ital AFR AMER GFR >60 mL/min [facility] spital Male GFR In terprentation 20-49 yrs >60 mL/min Normal 50-59 yrs >56 mL/min Normal 60-69 yrs >49 mL/min Normal 70-79yrs >42 mL/min Normal 80 and above >35 mL/min Normal Female GFR Interpretation 20-39 yrs >60 mL/min Normal 40-49 yrs >58 mL/min Normal 50-59 yrs >51 mL/min Normal 60-69 yrs >45 mL/min Normal 70-79 yrs >39 mL/min Normal 80 and above >32 mL/min Normal ID Date Data Source [id number] 07/31/2020 01:43:00 PM [facility] Name Value Range Interpretation Code Description Data Kayleen rce(s) Supporting Document(s) Hemoglobin A1c/Hemoglobin.total in Blood 5.1 % 4.4 - 6.1 [facility] {A1]{HB] ID Date Data Source [id number] 07/31/2020 01:22:00 PM [facility] Name Value Range Interpretation Code Description Data Kayleen rce(s) Supporting Document(s) CBC W/AUTOMATED DIFF [facility] COMPLETE BLOOD COUNT Leukocytes [#/volume] in Blood by Automated count 11.1 10^3/uL 4.2 - 11.0 H [facility] Erythrocytes [#/volume] in Blood by Automated count 4.52 10^6/uL 4. 20 - 5.40 [facility] Hemoglobin [Mass/volume] in Blood 13.5 g/dL 12.0 - 16.0 [facility] Hematocrit [Volume Fraction] of Blood by Automated count 40.8 % 3 7.0 - 47.0 [facility] Erythrocyte mean corpuscular volume [Entitic volume] by Auto mated count 90.3 fL 81.0 - 101 [facility] Erythrocyte mean corpuscular hemoglobin [Entitic mass] by Automated count 29.9 pg 27.0 - 34.0 [facility] Erythrocyte mean corpuscular hemoglobin concentration [Mass/volume] by Automated count 33.1 g/dL 31.0 - 36.0 [facility] Erythrocyte distribution width [Ratio] by Automated count 13.1 % 11.5 - 14.5 [facility] Platelets [#/volume] in Blood by Automated count 239 10^3/uL 150 - 45 0 [facility] Platelet mean volume [Entitic volume] in Blood by Automated count 8.3 fL 7.4 - 10.4 [facility] Neutrophils/100 leukocytes in Blood by Automated count 49.1 % 37. 0 - 80.0 [facility] Lymphocytes/100 leukocytes in Blood by Manual count 40.2 % 25.0 - 40.0 H [facility] Monocytes/100 leukocytes in Blood by Automated count 7.2 % 3.0 - 8.0 [facility] Eosinophils/100 leukocytes in Blood by Automated count 2.8 % 0.0 - 7.0 [facility] Basophils/100 leukocytes in Blood by Automated count 0.5 % 0.0 - 2.5 [facility] %IG 0.2 % 0.0 - 0.[address] %NRBC 0.0 % 0.0 - 0.0 [facility] al Neutrophils [#/volume] in Blood by Automated count 5.46 10^3/uL 2.00 - 6.90 [facility] Lymphocytes [#/volume] in Blood by Automated count 4.46 10^3/uL 0.60 - 3.40 H [facility] Monocytes [#/volume] in Blood by Automated count 0.80 10^3/uL 0.00 - 0.90 [facility] Eosinophils [#/volume] in Blood by Automated count 0.31 10^3/uL 0.00 - 0.70 [facility] Basophils [#/volume] in Blood by Automated count 0.05 10^3/uL 0.00 - 0.20 [facility] #IG 0.02 10^3/uL 0.00 - 0.10 [facility] #NRBC 0.00 10^3/uL 0.00 - 0.00 [facility] MANUAL DIFF NOT INDICATED [facility] RBC MORPH NOT INDICATED [facility] spital ID Date Data Source [id number] 07/14/2020 03:36:00 PM EST [facility] ([facility]) Name Value Range Interpretation Code Description Data Kayleen rce(s) Supporting Document(s) Ferritin [Mass/volume] in Serum or Plasma 66 ng/mL 8-252 Normal (applies to non- numeric results) [facility] ([facility]) <content>note:<nlbl:[email or web address]> </content>
<content></content> ID Date Data Source [id number] 07/14/2020 03:36:00 PM EST [facility] ([facility]) Name Value Range Interpretation Code Description Data Kayleen rce(s) Supporting Document(s) Iron (Fe) 34 ug/dL 50-170 Below low normal [facility] ( [facility]) Percent Saturation 13.1 % 13.2-45.0 Below low normal [facility] ([facility]) Total Iron Binding Capacity 259 ug/dL 250-450 Norm al (applies to non-numeric results) [facility] ([facility]) ID Date Data Source [id number] 07/14/2020 03:36:00 PM EST [facility] ([facility]) Name Value Range Interpretation Code Description Data Kayleen rce(s) Supporting Document(s) Red Blood Count 4.42 10 4.00-5.40 Normal (applies to non-numeric results) [facility] ([facility]) White Blood Count 14.5 10 4.0-10.0 Above high normal [facility] ([facility]) Hematocrit 41.2 % 36.0-47.0 Normal (applies to non-numeric resul ts) [facility] ([facility]) Hemoglobin 13.2 g/dL 12.0-15.5 Normal (applies to non-numeric resul ts) [facility] ([facility]) Mean Corpuscular Volume 93.2 fl 80.0-96.0 Normal ( applies to non-numeric results) [facility] ([facility]) Mean Corpuscular Hemoglobin 29.9 pg 27.0-33.0 Norm al (applies to non-numeric results) [facility] ([facility]) Mean Corpuscular HGB Conc 32.0 g/dL 32.0-36.5 Normal (applies to non-numeric results) [facility] ([facility]) Red Cell Distribution Width 13.0 % 11.5-14.5 Norm al (applies to non-numeric results) [facility] ([facility]) Platelet Count, Automated 274 10 150-450 Normal (applies to non-numeric results) [facility] ([facility]) Lymph % 28.4 % 24.0-44.0 Normal (applies to non-numeric resul ts) [facility] ([facility]) Neutrophils % 63.4 % 36.0-66.0 Normal (applies to non-numeric re sults) [facility] ([facility]) Eos % 2.2 % 0.0-3.0 Normal (applies to non-numeric resul ts) [facility] ([facility]) [place] % 5.3 % 0.0-5.0 Above high normal [facility] ([facility]) Baso % 0.3 % 0.0-1.0 Normal (applies to non-numeric resul ts) [facility] ([facility]) Immature Granulocyte % 0.4 % 0-3.0 Normal (applies to non-n umeric results) [facility] ([facility]) Nucleated Red Blood Cell % 0.0 % 0-0 Normal (applies to n on-numeric results) [facility] ([facility]) Neutrophils # 9.2 10 1.5-8.5 Above high normal MEDE NT ([facility]) Lymph # 4.1 10 1.5-5.0 Normal (applies to non-numeric resul ts) [facility] ([facility]) [place] # 0.8 10 0.0-0.8 Normal (applies to non-numeric resul ts) [facility] ([facility]) Eos # 0.3 10 0.0-0.5 Normal (applies to non-numeric resul ts) [facility] ([facility]) Baso # 0.1 10 0.0-0.2 Normal (applies to non-numeric resul ts) [facility] ([facility]) ID Date Data Source [id number] 06/30/2020 01:03:00 PM EST [facility] ([facility]) Name Value Range Interpretation Code Description Data Kayleen rce(s) Supporting Document(s) Sars-CoV-2, Tracey Laboratory test result [facility] ([facility]) This nucleic acid amplification test was developed and its performance characteristics determined by [facility] [place]. Nucleic acid amplification tests include RT-PCR and [...] negative (not detected) result in this assay. Laboratory test finding (navigational concept) Laboratory test result [facility] ([facility]) ID Date Data Source [id number] 06/30/2020 01:03:00 PM EST [facility] Name Value Range Interpretation Code Description Data Kayleen rce(s) Supporting Document(s) SARS coronavirus 2 RNA Not Detected [facility] This lab was ordered by [facility] lin and reported by [email or web address]. ID Date Data Source [id number] 07/02/2020 05:20:00 PM EST [facility] Name Value Range Interpretation Code Description Data Kayleen rce(s) Supporting Document(s) SARS-CoV-2, TRACEY Not Detected Not Detected [facility] This nucleic acid amplification test was developed and its performancecharacteristics determined by [facility] [place]. Nucleic acidamplification tests include RT-PCR and TMA. This test has not beenFDA cleared or approved. This test has been authorized by FDA underan Emergency Use Authorization (EUA). This test is only authorizedfor the duration of time the declaration that circumstances existjustifying the authorization of the emergency use of in vitrodiagnostic tests for detection of SARS-CoV-2 virus and/or diagnosisof COVID-19 infection under section 564(b)(1) of the Act, 21 U.S.C.360bbb-3(b) (1), unless the authorization is terminated or revokedsooner.When diagnostic testing is negative, the possibility of a falsenegative result should be considered in the context of a patient'srecent exposures and the presence of clinical signs and symptomsconsistent with COVID- 19. An individual without symptoms of COVID-19and who is not shedding SARS-CoV-2 virus would expect to have anegative (not detected) result in this assay. ORDER COVID 19 2 DAY YES [facility] ID Date Data Source [id number] 06/30/2020 01:03:00 PM EST [facility] ([facility]) Name Value Range Interpretation Code Description Data Kayleen rce(s) Supporting Document(s) Laboratory test finding (navigational concept) Laboratory test result [facility] ([facility]) ID Date Data Source [id number] 05/25/2020 03:55:00 PM EST [facility] ([facility]) Name Value Range Interpretation Code Description Data Kayleen rce(s) Supporting Document(s) PDF Laboratory test result [facility] ([facility]) {DIAGNOSIS: F12.20~{MEDICATIONS/DECLARE D: IBUPROFEN, LITHIUM, MAXALT~{PRESCRIPTION INFO: PROPR Laboratory test finding (navigational concept) Laboratory test result [facility] ([facility]) {DIAGNOSIS: F12.20~{MEDICATIONS/DECLARE D: IBUPROFEN, LITHIUM, MAXALT~{PRESCRIPTION INFO: PROPR ID Date Data Source [id number] 05/31/2020 12:10:00 PM [facility] Name Value Range Interpretation Code Description Data Kayleen rce(s) Supporting Document(s) Drugs identified in Urine FINAL [facility] TOXASSURE SELECT 13 (MW) Test Result Flag UnitsDrug Present not Declared for Prescription Verification Carboxy-THC 76 UNEXPECTED ng/mg creat Carboxy-THC is a metabolite of tetrahydrocannabinol ( THC). Source of THC is most commonly illicit, but THC is also present in a scheduled prescription medication. T est Result Flag Units Ref Range Creatinine 173 mg/dL >=20 Declared Medications: The flagging and interpretation on this report are based on the following declared medications. Unexpected results may arise from inaccuracies in the declared medications. Note: The testing scope of this panel does not include following reported medications: Cariprazine (Vraylar) Ibuprofen [place] Propranolol Rizatriptan (Maxalt) For clinical consultation, please call . Report . [facility] ID Date Data Source [id number] 03/31/2020 11:46:00 AM EDT [facility] ([facility]) Name Value Range Interpretation Code Description Data Kayleen rce(s) Supporting Document(s) Thyrotropin [Units/volume] in Serum or Plasma 0.44 uIU/mL 0. 47-5.01 Below low normal [facility] ([facility]) Thyroxine (T4) free [Mass/volume] in Serum or Plasma 1.72 ng/dL 0.93-1.70 Above high normal [facility] ([facility]) Triiodothyronine (T3) [Mass/volume] in Serum or Plasma 130 ng/dL 71- 180 [facility] ([facility]) Thyrotropin receptor Ab [Units/volume] in Serum Laboratory t est result 0.00-1.75 [facility] ([facility]) Thyroid stimulating immunoglobulins actual/normal in S denzel Laboratory test result 0.00-0.55 [facility] ([facility]) ID Date Data Source [id number] 03/31/2020 11:46:00 AM EDT [facility] ([facility] ) Name Value Range Interpretation Code Description Data Kayleen rce(s) Supporting Document(s) Triiodothyronine (T3) [Mass/volume] in Serum or Plasma 130 ng/dL 71- 180 [facility] ([facility] ) Thyrotropin [Units/volume] in Serum or Plasma 0.44 uIU/mL 0.47-5.01 [facility] ([facility] ) Thyroxine (T4) free [Mass/volume] in Serum or Plasma 1.72 ng/dL 0.93- 1.70 [facility] ([facility] ) Thyrotropin receptor Ab [Units/volume] in Serum Laboratory t est result 0.00-1.75 [facility] ([facility]) Thyroid-Stimulating Immunoglobulin (Tsi) Laboratory test result 0.00- 0.55 [facility] ([facility] ) ID Date Data Source [id number] 04/04/2020 01:58:00 PM EDT [facility] Name Value Range Interpretation Code Description Data Kayleen rce(s) Supporting Document(s) Thyrotropin receptor Ab [Units/volume] in Serum <1.10 IU/L 0.00-1.75 [facility] ID Date Data Source [id number] 04/02/2020 07:36:00 AM EDT [facility] Name Value Range Interpretation Code Description Data Kayleen rce(s) Supporting Document(s) Thyroid stimulating immunoglobulins [Units/volume] in Serum <0.10 IU/L 0.00-0.55 [facility] ID Date Data Source [id number] 04/01/2020 08:27:00 AM EDT [facility] Name Value Range Interpretation Code Description Data Kayleen rce(s) Supporting Document(s) Triiodothyronine (T3) [Mass/volume] in Serum or Plasma 130 ng/dL 71- 180 [facility] ID Date Data Source [id number] 03/31/2020 12:36:00 PM EDT [facility] Name Value Range Interpretation Code Description Data Kayleen rce(s) Supporting Document(s) Thyroxine (T4) free index in Serum or Plasma by calculation 1.72 NG/DL 0.93 - 1.70 H [facility] ID Date Data Source [id number] 03/31/2020 12:36:00 PM EDT [facility] Name Value Range Interpretation Code Description Data Kayleen rce(s) Supporting Document(s) Thyrotropin [Units/volume] in Serum or Plasma by Detec tion limit <= 0.05 mIU/L 0.44 uIU/mL 0.47 - 5.01 L [facility] ID Date Data Source [id number] 03/17/2020 02:00:00 PM EDT [facility] ([facility]) Name Value Range Interpretation Code Description Data Kayleen rce(s) Supporting Document(s) Thyrotropin [Units/volume] in Serum or Plasma 0.26 uIU/mL 0. 47-5.01 Below low normal [facility] ([facility]) Thyroxine (T4) free [Mass/volume] in Serum or Plasma 1.73 ng/dL 0.93-1.70 Above high normal [facility] ([facility]) Thyroid stimulating immunoglobulins actual/normal in S denzel Laboratory test result 0.00-0.55 [facility] ([facility] ID Date Data Source [id number] 03/17/2020 02:00:00 PM EDT [facility] ([facility]) Name Value Range Interpretation Code Description Data Kayleen rce(s) Supporting Document(s) Thyrotropin [Units/volume] in Serum or Plasma 0.26 uIU/mL 0.47-5.01 [facility] ([facility]) Thyroid-Stimulating Immunoglobulin (Tsi) Laboratory test result 0.00- 0.55 [facility] Thyroxine (T4) free [Mass/volume] in Serum or Plasma 1.73 ng/dL 0.93- 1.70 [facility] ([facility]) ID Date Data Source [id number] 03/20/2020 01:50:00 PM EDT [facility] Name Value Range Interpretation Code Description Data Kayleen rce(s) Supporting Document(s) Thyroid stimulating immunoglobulins [Units/volume] in Serum <0.10 IU/L 0.00-0.55 [facility] ID Date Data Source [id number] 03/17/2020 03:05:00 PM EDT [facility] Name Value Range Interpretation Code Description Data Kayleen rce(s) Supporting Document(s) Thyroxine (T4) free index in Serum or Plasma by calculation 1.73 NG/DL 0.93 - 1.70 H [facility] ID Date Data Source [id number] 03/17/2020 03:05:00 PM T [facility] Value Range Interpretation Code Description Data Kayleen rce(s) Supporting Document(s) Thyrotropin [Units/volume] in Serum or Plasma by Detec tion limit <= 0.05 mIU/L 0.26 uIU/mL 0.47 - 5.01 L [facility] ID Date Data Source [id number] 02/24/2020 01:33:00 PM EDT [facility] ([facility]) Name Value Range Interpretation Code Description Data Kayleen rce(s) Supporting Document(s) Thyrotropin [Units/volume] in Serum or Plasma 0.11 uIU/mL 0. 47-5.01 Below low normal [facility] ([facility]) Thyroxine (T4) free [Mass/volume] in Serum or Plasma 1.52 ng/dL 0.93- 1.70 [facility] ([facility]) Cobalamin (Vitamin B12) [Mass/volume] in Serum or Plasma 299 pg/mL 2 32-1245 [facility] ([facility]) ID Date Data Source [id number] 02/24/2020 01:33:00 PM EDT [facility] ([facility]) Name Value Range Interpretation Code Description Data Kayleen rce(s) Supporting Document(s) Uibc 162 ug/dL 112-347 [facility] ([facility]) Tibc 211 ug/dL 250-450 Below low normal [facility] ( [facility]) Iron 49 ug/dL 42-135 [facility] ([facility]) Iron Sat 23 % [facility] ([facility]) ID Date Data Source [id number] 02/24/2020 01:33:00 PM EDT [facility] ([facility]) Name Value Range Interpretation Code Description Data Kayleen rce(s) Supporting Document(s) Ferritin [Mass/volume] in Serum or Plasma 198.7 ng/mL 3.0-105 Above high normal [facility] ([facility]) ID Date Data Source [id number] 02/24/2020 05:37:00 PM EDT [facility] Name Value Range Interpretation Code Description Data Kayleen rce(s) Supporting Document(s) Cobalamin (Vitamin B12) [Mass/volume] in Serum or Plasma 299 PG/ML 232 - 1245 [facility] ID Date Data Source [id number] 02/24/2020 05:37:00 PM EDT [facility] Value Range Interpretation Code Description Data Kayleen rce(s) Supporting Document(s) Thyroxine (T4) free index in Serum or Plasma by calculation 1.52 NG/DL 0.93 - 1.70 [facility] ID Date Data Source [id number] 02/24/2020 05:37:00 PM EDT [facility] Value Range Interpretation Code Description Data Kayleen rce(s) Supporting Document(s) Thyrotropin [Units/volume] in Serum or Plasma by Detec tion limit <= 0.05 mIU/L 0.11 uIU/mL 0.47 - 5.01 L [facility] ID Date Data Source [id number] 02/24/2020 05:36:00 PM EDT [facility] Name Value Range Interpretation Code Description Data Kayleen rce(s) Supporting Document(s) Ferritin [Mass/volume] in Serum or Plasma 198.7 ng/mL 3.0 - 105 H [facility] ID Date Data Source [id number] 02/24/2020 05:27:00 PM EDT [facility] Name Value Range Interpretation Code Description Data Kayleen rce(s) Supporting Document(s) Iron [Mass/volume] in Serum or Plasma 49 UG/DL 42 - 135 [facility] Iron binding capacity.unsaturated [Mass/volume] in Serum or Plasma 162 UG/DL 112 - 347 [facility] Iron binding capacity [Mass/volume] in Serum or Plasma 211 ug/dL 250 - 450 L [facility] Iron saturation [Mass Fraction] in Serum or Plasma 23 % [facility] Procedure Social History Code Duration Value Status Description Data Source(s ) Smoking 11/12/2020 12:00:00 AM EDT Patient is a former smoker completed Patient is a former smoker [facility] ([facility] ) Vital Signs ID Date Data Source UNK Name Value Range Interpretation Code Description Data Source(s) Diastolic blood pressure 82 mm[Hg] 82 mm[Hg] [facility] ([facility]) Respiratory rate 16 /min 16 /min [facility] ( [facility]) Systolic blood pressure 128 mm[Hg] 128 mm[Hg] [facility] ([facility]) Body height 61 [in_i] 61 [in_i] [facility] ([facility]) 5'1" Oxygen saturation in Arterial blood by Pulse oximetry 93 % 93 % [facility] ([facility]) Body weight 67.133 kg 67.133 kg [facility] ([facility]) Body mass index (BMI) [Ratio] 28.0 kg/m2 28.0 k g/m2 [facility] ([facility]) Body surface area Derived from formula 1.66 m2 1.66 m2 [facility] ([facility]) Heart rate 88 /min 88 /min [facility] ([facility]) Body temperature 97.3 [degF] 97.3 [degF] [facility] ([facility]) Respiratory rate 18 /min 18 /min [facility] ( [facility]) Body weight 148.00 [lb_av] 148.00 [lb_av] [facility] ([facility]) Diastolic blood pressure 72 mm[Hg] 72 mm[Hg] [facility] ([facility]) Systolic blood pressure 134 mm[Hg] 134 mm[Hg] [facility] Oxygen saturation in Arterial blood by Pulse oximetry 100 % 100 % [facility] ([facility]) Systolic blood pressure 112 mm[Hg] 112 mm[Hg] [facility] ([facility]) Diastolic blood pressure 71 mm[Hg] 71 mm[Hg] [facility] ([facility]) Heart rate 100 /min 100 /min [facility] ([facility]) Body temperature 98.0 [degF] 98.0 [degF] [facility] Systolic blood pressure 128 mm[Hg] 128 mm[Hg] [facility] Respiratory rate 18 /min 18 /min [facility] ( [facility]) Oxygen saturation in Arterial blood by Pulse oximetry 99 % 99 % [facility] ([facility]) Diastolic blood pressure 82 mm[Hg] 82 mm[Hg] [facility] ([facility]) Heart rate 94 /min 94 /min [facility] ([facility]) Body temperature 98.4 [degF] 98.4 [degF] [facility] ([facility]) Heart rate 101 /min 101 /min [facility] ([facility]) Body temperature 99.1 [degF] 99.1 [degF] [facility] ([facility]) Oxygen saturation in Arterial blood by Pulse oximetry 96 % 96 % [facility] ([facility]) Body mass index (BMI) [Ratio] 30.0 kg/m2 30.0 k g/m2 [facility] ([facility]) Body surface area Derived from formula 1.71 m2 1.71 m2 [facility] ([facility]) Body height 61 [in_i] 61 [in_i] [facility] ([facility]) 5'1" Heart rate 83 /min 83 /min [facility] ([facility]) Body temperature 96.2 [degF] 96.2 [degF] [facility] ([facility]) Body weight 72.122 kg 72.122 kg [facility] ([facility]) Systolic blood pressure 102 mm[Hg] 102 mm[Hg] [facility] ([facility]) Diastolic blood pressure 60 mm[Hg] 60 mm[Hg] [facility] ([facility]) Respiratory rate 14 /min 14 /min [facility] ( [facility]) Oxygen saturation in Arterial blood by Pulse oximetry 95 % 95 % [facility] ([facility]) Body weight 159.00 [lb_av] 159.00 [lb_av] [facility] ([facility]) Oxygen saturation in Arterial blood by Pulse oximetry 98 % 98 % [facility] ([facility]) Diastolic blood pressure 60 mm[Hg] 60 mm[Hg] [facility] ([facility]) Heart rate 64 /min 64 /min [facility] ([facility]) Body temperature 97.3 [degF] 97.3 [degF] [facility] ([facility]) Body height 61 [in_i] 61 [in_i] [facility] ([facility]) 5'1" Body weight 158.44 [lb_av] 158.44 [lb_av] [facility] ([facility]) Body mass index (BMI) [Ratio] 29.9 kg/m2 29.9 k g/m2 [facility] ([facility]) Systolic blood pressure 120 mm[Hg] 120 mm[Hg] [facility] ([facility]) Oxygen saturation in Arterial blood by Pulse oximetry 96 % 96 % [facility] ([facility]) Systolic blood pressure 102 mm[Hg] 102 mm[Hg] [facility] ([facility]) Diastolic blood pressure 62 mm[Hg] 62 mm[Hg] [facility] ([facility]) Heart rate 102 /min 102 /min [facility] ([facility]) Body temperature 99.2 [degF] 99.2 [degF] [facility] ([facility]) Systolic blood pressure 123 mm[Hg] 123 mm[Hg] [facility] ([facility]) Diastolic blood pressure 73 mm[Hg] 73 mm[Hg] [facility] ([facility]) Heart rate 100 /min 100 /min [facility] ([facility]) Body temperature 98.2 [degF] 98.2 [degF] [facility] ([facility]) Respiratory rate 16 /min 16 /min [facility] ( [facility]) Oxygen saturation in Arterial blood by Pulse oximetry 98 % 98 % [facility] ([facility]) Systolic blood pressure 102 mm[Hg] 102 mm[Hg] [facility] ([facility]) Diastolic blood pressure 76 mm[Hg] 76 mm[Hg] [facility] ([facility]) Heart rate 107 /min 107 /min [facility] ([facility]) Body temperature 98.8 [degF] 98.8 [degF] [facility] Oxygen saturation in Arterial blood by Pulse oximetry 96 % 96 % [facility] ([facility]) Body temperature 98.6 [degF] 98.6 [degF] [facility] ([facility]) Oxygen saturation in Arterial blood by Pulse oximetry 96 % 96 % [facility] ([facility]) Systolic blood pressure 102 mm[Hg] 102 mm[Hg] [facility] ([facility]) Diastolic blood pressure 80 mm[Hg] 80 mm[Hg] [facility] ([facility]) Heart rate 87 /min 87 /min [facility] ([facility]) Heart rate 113 /min 113 /min [facility] ([facility]) Body temperature 98.9 [degF] 98.9 [degF] [facility] ([facility]) Oxygen saturation in Arterial blood by Pulse oximetry 98 % 98 % [facility] ([facility]) Body surface area Derived from formula 1.69 m2 1.69 m2 [facility] ([facility]) Systolic blood pressure 90 mm[Hg] 90 mm[Hg] [facility] ([facility]) Oxygen saturation in Arterial blood by Pulse oximetry 98 % 98 % [facility] ([facility]) Body weight 155.00 [lb_av] 155.00 [lb_av] [facility] ([facility]) Body height 61 [in_i] 61 [in_i] [facility] ([facility]) 5'1" Body mass index (BMI) [Ratio] 29.3 kg/m2 29.3 k g/m2 [facility] ([facility]) Body temperature 99.0 [degF] 99.0 [degF] [facility] ([facility]) Respiratory rate 18 /min 18 /min [facility] ( [facility]) Diastolic blood pressure 40 mm[Hg] 40 mm[Hg] [facility] ([facility]) Body weight 70.308 kg 70.308 kg [facility] ([facility]) Heart rate 98 /min 98 /min [facility] ([facility]) Diastolic blood pressure--sitting 52 mm[Hg] 52 mm[Hg] [facility] ([facility]) Manual Left Arm Heart rate 68 /min 68 /min [facility] ([facility]) Respiratory rate 16 /min 16 /min [facility] ( [facility]) Oxygen saturation in Arterial blood by Pulse oximetry 98 % 98 % [facility] ([facility]) Body weight 147.12 [lb_av] 147.12 [lb_av] [facility] ([facility]) Body temperature 98.2 [degF] 98.2 [degF] [facility] ([facility]) Oral Body surface area Derived from formula 1.66 m2 1.66 m2 [facility] ([facility]) Body weight 66.736 kg 66.736 kg [facility] ([facility]) Body height 61 [in_i] 61 [in_i] [facility] ([facility]) 5'1" Systolic blood pressure--sitting 98 mm[Hg] 98 mm[Hg] [facility] ([facility]) Manual Left Arm Body mass index (BMI) [Ratio] 27.8 kg/m2 27.8 k g/m2 [facility] ([facility]) Diastolic blood pressure 88 mm[Hg] 88 mm[Hg] [facility] ([facility] ) Systolic blood pressure 132 mm[Hg] 132 mm[Hg] [facility] ([facility]) Oxygen saturation in Arterial blood by Pulse oximetry 98 % 98 % [facility] ([facility] ) Heart rate 84 /min 84 /min [facility] ([facility] ) Body temperature 98.4 [degF] 98.4 [degF] [facility] ([facility] ) Body height 61 [in_i] 61 [in_i] [facility] ([facility] ) 5'1" Body weight 152.25 [lb_av] 152.25 [lb_av] [facility] ([facility] ) Body mass index (BMI) [Ratio] 28.8 kg/m2 28.8 k g/m2 [facility] ([facility] ) Oxygen saturation in Arterial blood by Pulse oximetry 98 % 98 % [facility] ([facility]) Body weight 152.00 [lb_av] 152.00 [lb_av] [facility] ([facility]) Body temperature 98.9 [degF] 98.9 [degF] [facility] ([facility]) Respiratory rate 16 /min 16 /min [facility] ( [facility]) Body weight 68.947 kg 68.947 kg [facility] ([facility]) Body height 61 [in_i] 61 [in_i] [facility] ([facility]) 5'1" Body mass index (BMI) [Ratio] 28.7 kg/m2 28.7 k g/m2 [facility] ([facility]) Body surface area Derived from formula 1.68 m2 1.68 m2 [facility] ([facility]) Systolic blood pressure 116 mm[Hg] 116 mm[Hg] [facility] ([facility]) Diastolic blood pressure 80 mm[Hg] 80 mm[Hg] [facility] ([facility]) Heart rate 73 /min 73 /min [facility] ([facility]) Systolic blood pressure 126 mm[Hg] 126 mm[Hg] [facility] ([facility] ) Diastolic blood pressure 76 mm[Hg] 76 mm[Hg] [facility] ([facility] ) Heart rate 87 /min 87 /min [facility] ([facility] ) Body temperature 97.6 [degF] 97.6 [degF] [facility] ([facility] ) Body height 61 [in_i] 61 [in_i] [facility] ([facility] ) 5'1" Body weight 133.50 [lb_av] 133.50 [lb_av] [facility] ([facility] ) Body mass index (BMI) [Ratio] 25.2 kg/m2 25.2 k g/m2 [facility] ([facility] ) Oxygen saturation in Arterial blood by Pulse oximetry 98 % 98 % [facility] ([facility] ) Diastolic blood pressure 80 mm[Hg] 80 mm[Hg] [facility] ([facility]) Heart rate 88 /min 88 /min [facility] ([facility]) Respiratory rate 16 /min 16 /min [facility] ( [facility]) Oxygen saturation in Arterial blood by Pulse oximetry 99 % 99 % [facility] ([facility]) Body temperature 98.2 [degF] 98.2 [degF] [facility] ([facility]) Systolic blood pressure 115 mm[Hg] 115 mm[Hg] M [facility] ([facility]) Heart rate 87 /min 87 /min [facility] ([facility]) Systolic blood pressure 113 mm[Hg] 113 mm[Hg] [facility] Body temperature 98.7 [degF] 98.7 [degF] [facility] ([facility]) Oxygen saturation in Arterial blood by Pulse oximetry 99 % 99 % [facility] ([facility]) Diastolic blood pressure 74 mm[Hg] 74 mm[Hg] [facility] ([facility]) Respiratory rate 16 /min 16 /min [facility] ( [facility]) Systolic blood pressure 118 mm[Hg] 118 mm[Hg] [facility]) Diastolic blood pressure 74 mm[Hg] 74 mm[Hg] [facility] ([facility]) Heart rate 86 /min 86 /min [facility] ([facility]) Body temperature 97.2 [degF] 97.2 [degF] [facility] ([facility]) Respiratory rate 18 /min 18 /min [facility] ( [facility]) Oxygen saturation in Arterial blood by Pulse oximetry 96 % 96 % [facility] ([facility]) Body weight 138.00 [lb_av] 138.00 [lb_av] [facility] ([facility]) Body weight 62.597 kg 62.597 kg [facility] ([facility]) Body height 61 [in_i] 61 [in_i] [facility] ([facility]) 5'1" Body mass index (BMI) [Ratio] 26.1 kg/m2 26.1 k g/m2 [facility] ([facility]) Body surface area Derived from formula 1.61 m2 1.61 m2 [facility] ([facility]) Systolic blood pressure 115 mm[Hg] 115 mm[Hg] [facility] ([facility] ) Diastolic blood pressure 80 mm[Hg] 80 mm[Hg] [facility] ([facility] ) Body mass index (BMI) [Ratio] 25.1 kg/m2 25.1 k g/m2 [facility] ([facility] ) Heart rate 78 /min 78 /min [facility] ([facility] ) Respiratory rate 14 /min 14 /min [facility] ( [facility] ) Body height 61 [in_i] 61 [in_i] [facility] ([facility] ) 5'1" Body weight 133.00 [lb_av] 133.00 [lb_av] [facility] ([facility] ) [place] body weight 105 [lb_av] 105 [lb_av] [facility] ([facility] ) Body mass index (BMI) [Ratio] 25.2 kg/m2 25.2 k g/m2 [facility] ([facility] ) Oxygen saturation in Arterial blood by Pulse oximetry 98 % 98 % [facility] ([facility] ) Systolic blood pressure 118 mm[Hg] 118 mm[Hg] [facility] ([facility] ) Diastolic blood pressure 78 mm[Hg] 78 mm[Hg] [facility] ([facility] ) Heart rate 106 /min 106 /min [facility] ([facility] ) Body height 61 [in_i] 61 [in_i] [facility] ([facility] ) 5'1" Body weight 133.38 [lb_av] 133.38 [lb_av] [facility] ([facility] )
[2021-03-17 19:56] LABS: BASO # 0.1 10^3/uL (0.0-0.2); BASO % 0.4 % (0.0-1.0); EOS # 0.1 10^3/uL (0.0-0.5); EOS % 0.7 % (0.0-3.0); HEMATOCRIT 38.4 % (36.0-47.0); HEMOGLOBIN 12.8 g/dl (12.0-15.5); LYMPH # 5.5 10^3/uL (1.5-5.0); LYMPH % 39.2 % (24.0-44.0); MEAN CORPUSCULAR HEMOGLOBIN 31.1 pg (27.0-33.0); MEAN CORPUSCULAR HGB CONC 33.3 g/dl (32.0-36.5); MEAN CORPUSCULAR VOLUME 93.2 fl (80.0-96.0); MONO # 1.2 10^3/uL (0.0-0.8); MONO % 8.2 % (2.0-8.0); NEUTROPHILS # 7.2 10^3/uL (1.5-8.5); NEUTROPHILS % 51.1 % (36.0-66.0); PLATELET COUNT, AUTOMATED 286 10^3/uL (150-450); RED BLOOD COUNT 4.12 10^6/uL (4.00-5.40)
--- OUTSIDE RECORDS SUMMARY | 2021-03-17 20:33 | CCD ---
Author Author [facility] Organization [facility] Address Unknown Phone Unavailable Support Name Relationship Address Phone ROGELIO ADAMS Next Of Kin [address] [place] [address] AlbertJeanne rodriguez DDS Next Of Kin [address] [place], [place] [id number] Maru Hercules Next Of Kin Unknown Unavailable MCDEVANSMI Next Of Kin [address] [place] [address] MCDPUL Next Of Kin [address] [facility] [address] [place] [address] UNK Next Of Kin Unknown Unavailable MCDONALDS Next Of Kin [address] [place] [address] [place] [id number] DOROTEO AC Next Of Kin [address] [place] [address] Jeanne Magaña DDS Next Of Kin [address] [place] [address] JACKIE ESPINOSA Next Of Kin [address] [facility] [address] [place] [address] GUI'Thomas Next Of Kin [place] [address] [place] [address] WU AC Next Of Kin [address] [place] [address] [employer] Next Of Kin [address] [place] [address] PANRUAruna Next Of Kin [address] [facility] [place] [address] ST Next Of Kin Unknown Unavailable Valerie RODRIGUEZ Next Of Kin [address] [place] [address] UNEMPLOYED Next Of Kin [address] [place] [address] UE Next Of Kin Unknown Unavailable MARU HERCULES Next Of Kin [address] [place], [place] [id number] DOREENDEBORAH CORNELIUS Next Of Kin [address] [place] [address] Maru Hercules ECON [address] [place] [address] Unavailable Care Team Providers Care Eeg Tech Name Role Phone NERY, F GODWIN DO [...] Unavailable Unavailable SAGASTUME, MYA MD Unavailable Unavailable SAGASTMUE, MYA MD Unavailable Unavailable SAGASTUME, MYA MD Unavailable Unavailable SAGASTUME, MYA MD Unavailable Unavailable SAGASTUME, MYA MD Unavailable Unavailable SAGASTUME, MYA MD Unavailable Unavailable SAGASTUME, MYA MD Unavailable Unavailable SAGASTUME, MYA MD Unavailable Unavailable SAGASTUME, MYA MD Unavailable Unavailable SAGASTUME, MYA MD Unavailable Unavailable SAGASUTME, MYA MD Unavailable Unavailable SAGASTUME, MYA MD Unavailable Unavailable ROBERTO PATTON PA Unavailable Unavailable PATTONROBERTO PA Unavailable Unavailable PATTON, ROBERTO PA Unavailable [...] M Eloise PA-C Unavailable Unavailable Cheema, M Eloies PA-C Unavailable Unavailable Cheema, M Eloise PA-C [...] M Eloise PA-C Unavailable Unavailable Cheema, M Elosie PA-C Unavailable Unavailable Cheema, M Eloise PA-C Unavailable Unavailable Cheema, M Eloise PA-C Unavailable Unavailable Cheema, M Eloise PA-C Unavailable Unavailable Cheema, M Eloise PA-C Unavailable Unavailable Cheema, M Eloise PA-C Unavailable Unavailable Cheema, M Eloise PA-C Unavailable Unavailable Cheema, M Eloise PA-C Unavailable Unavailable Cheema, M Eloise PA-C Unavailable Unavailable MAURA, B BRONSON PROFESSOR OF ENVIRONMENTAL SCIENCE Unavailable Unavailable MAURA, B BRONSON PROFESSOR OF ENVIRONMENTAL SCIENCE Unavailable Unavailable MAURA, B BRONSON PROFESSOR OF ENVIRONMENTAL SCIENCE Unavailable Unavailable MAURA, B BRONSON PROFESSOR OF ENVIRONMENTAL SCIENCE Unavailable Unavailable MAURA, B BRONSON PROFESSOR OF ENVIRONMENTAL SCIENCE Unavailable Unavailable MAURA, B BRONSON PROFESSOR OF ENVIRONMENTAL SCIENCE Unavailable Unavailable MAURA, B BRONSON PROFESSOR OF ENVIRONMENTAL SCIENCE Unavailable Unavailable MAURA, B BRONSON PROFESSOR OF ENVIRONMENTAL SCIENCE Unavailable Unavailable MAURA, B BRONSON PROFESSOR OF ENVIRONMENTAL SCIENCE Unavailable Unavailable MAURA, B BRONSON PROFESSOR OF ENVIRONMENTAL SCIENCE Unavailable Unavailable MAURA, B BRONSON PROFESSOR OF ENVIRONMENTAL SCIENCE Unavailable Unavailable MAURA, B BRONSON PROFESSOR OF ENVIRONMENTAL SCIENCE Unavailable Unavailable MAURA, B BRONSON PROFESSOR OF ENVIRONMENTAL SCIENCE Unavailable Unavailable MAURA, B BRONSON PROFESSOR OF ENVIRONMENTAL SCIENCE Unavailable Unavailable MAURA, B BRONSON PROFESSOR OF ENVIRONMENTAL SCIENCE Unavailable Unavailable MAURA, B BRONSON PROFESSOR OF ENVIRONMENTAL SCIENCE Unavailable Unavailable MAURA, B BRONSON PROFESSOR OF ENVIRONMENTAL SCIENCE Unavailable Unavailable MAURA, B BRONSON PROFESSOR OF ENVIRONMENTAL SCIENCE Unavailable Unavailable MAURA, B BRONSON PROFESSOR OF ENVIRONMENTAL SCIENCE Unavailable Unavailable MAURA, B BRONSON PROFESSOR OF ENVIRONMENTAL SCIENCE Unavailable Unavailable MAURA, B BRONSON PROFESSOR OF ENVIRONMENTAL SCIENCE Unavailable Unavailable MAURA, B BRONSON PROFESSOR OF ENVIRONMENTAL SCIENCE Unavailable Unavailable MAURA, B BRONSON PROFESSOR OF ENVIRONMENTAL SCIENCE Unavailable Unavailable MAURA, B BRONSON PROFESSOR OF ENVIRONMENTAL SCIENCE Unavailable Unavailable MAURA, B BRONSON PROFESSOR OF ENVIRONMENTAL SCIENCE Unavailable Unavailable MAURA, B BRONSON PROFESSOR OF ENVIRONMENTAL SCIENCE Unavailable Unavailable MAURA, B BRONSON PROFESSOR OF ENVIRONMENTAL SCIENCE Unavailable Unavailable MAURA, B BRONSON PROFESSOR OF ENVIRONMENTAL SCIENCE Unavailable Unavailable MAURA, B BRONSON PROFESSOR OF ENVIRONMENTAL SCIENCE Unavailable Unavailable MAURA, B BRONSON PROFESSOR OF ENVIRONMENTAL SCIENCE Unavailable Unavailable MAURA, B BRONSON PROFESSOR OF ENVIRONMENTAL SCIENCE Unavailable Unavailable MAURA, B BRONSON PROFESSOR OF ENVIRONMENTAL SCIENCE Unavailable Unavailable MAURA, B BRONSON PROFESSOR OF ENVIRONMENTAL SCIENCE Unavailable Unavailable MAURA, B BRONSON PROFESSOR OF ENVIRONMENTAL SCIENCE Unavailable Unavailable MAURA, B BRONSON PROFESSOR OF ENVIRONMENTAL SCIENCE Unavailable Unavailable MAURA, B BRONSON PROFESSOR OF ENVIRONMENTAL SCIENCE Unavailable Unavailable MAURA, B BRONSON PROFESSOR OF ENVIRONMENTAL SCIENCE Unavailable Unavailable MAURA, B BRONSON PROFESSOR OF ENVIRONMENTAL SCIENCE Unavailable Unavailable MAURA, B BRONSON PROFESSOR OF ENVIRONMENTAL SCIENCE Unavailable Unavailable MAURA, B BRONSON PROFESSOR OF ENVIRONMENTAL SCIENCE Unavailable Unavailable MAURA, B BRONSON PROFESSOR OF ENVIRONMENTAL SCIENCE Unavailable Unavailable MAURA, B BRONSON PROFESSOR OF ENVIRONMENTAL SCIENCE Unavailable Unavailable MAURA, B BRONSON PROFESSOR OF ENVIRONMENTAL SCIENCE Unavailable Unavailable MAURA, B BRONSON PROFESSOR OF ENVIRONMENTAL SCIENCE Unavailable Unavailable MAURA, B BRONSON PROFESSOR OF ENVIRONMENTAL SCIENCE Unavailable Unavailable MAURA, B BRONSON PROFESSOR OF ENVIRONMENTAL SCIENCE Unavailable Unavailable MAURA, B BRONSON PROFESSOR OF ENVIRONMENTAL SCIENCE Unavailable Unavailable MAURA, B BRONSON PROFESSOR OF ENVIRONMENTAL SCIENCE Unavailable Unavailable MAURA, B BRONSON PROFESSOR OF ENVIRONMENTAL SCIENCE Unavailable Unavailable MAURA, B BRONSON PROFESSOR OF ENVIRONMENTAL SCIENCE Unavailable Unavailable MAURA, B BRONSON PROFESSOR OF ENVIRONMENTAL SCIENCE Unavailable Unavailable MAURA, B BRONSON PROFESSOR OF ENVIRONMENTAL SCIENCE Unavailable Unavailable MAURA, B BRONSON PROFESSOR OF ENVIRONMENTAL SCIENCE Unavailable Unavailable MAURA, B BRONSON PROFESSOR OF ENVIRONMENTAL SCIENCE Unavailable Unavailable MAURA, B BRONSON PROFESSOR OF ENVIRONMENTAL SCIENCE Unavailable Unavailable MAURA, B BRONSON PROFESSOR OF ENVIRONMENTAL SCIENCE Unavailable Unavailable MAURA, B BRONSON PROFESSOR OF ENVIRONMENTAL SCIENCE Unavailable Unavailable MAURA, B BRONSON PROFESSOR OF ENVIRONMENTAL SCIENCE Unavailable Unavailable MAURA, B BRONSON PROFESSOR OF ENVIRONMENTAL SCIENCE Unavailable Unavailable MAURA, B BRONSON PROFESSOR OF ENVIRONMENTAL SCIENCE Unavailable Unavailable MUARA, B BRONSON PROFESSOR OF ENVIRONMENTAL SCIENCE Unavailable Unavailable KAUR, J MAXIMO PA Unavailable Unavailable KAUR, J MAXIMO PA Unavailable Unavailable KAUR, J MAXIMO PA Unavailable Unavailable KAUR, J MAXIMO PA Unavailable Unavailable KAUR, J MAXIMO PA Unavailable Unavailable KAUR, J MAXIMO PA Unavailable Unavailable KAUR, J MAXIMO PA Unavailable Unavailable KAUR, J MAXIMO PA Unavailable Unavailable KAUR, J MAXIMO PA Unavailable Unavailable KAUR, J MAXIOM PA Unavailable Unavailable KAUR, J MAXIMO PA [...] Javier PA-C Unavailable Unavailable BUMBANAC, A STAR PROFESSOR OF ENVIRONMENTAL SCIENCE Unavailable Unavailable BUMBANAC, A STAR PROFESSOR OF ENVIRONMENTAL SCIENCE Unavailable Unavailable BUMBANAC, A STAR PROFESSOR OF ENVIRONMENTAL SCIENCE Unavailable Unavailable BUMBANAC, A STAR PROFESSOR OF ENVIRONMENTAL SCIENCE Unavailable Unavailable BUMBANAC, A STAR PROFESSOR OF ENVIRONMENTAL SCIENCE Unavailable Unavailable BUMBANAC, A STAR PROFESSOR OF ENVIRONMENTAL SCIENCE Unavailable Unavailable BUMBANAC, A STAR PROFESSOR OF ENVIRONMENTAL SCIENCE Unavailable Unavailable BUMBANAC, A STAR PROFESSOR OF ENVIRONMENTAL SCIENCE Unavailable Unavailable BUMBANAC, A STAR PROFESSOR OF ENVIRONMENTAL SCIENCE Unavailable Unavailable BUMBANAC, A STAR PROFESSOR OF ENVIRONMENTAL SCIENCE Unavailable Unavailable BUMBANAC, A STAR PROFESSOR OF ENVIRONMENTAL SCIENCE Unavailable Unavailable BUMBANAC, A STAR PROFESSOR OF ENVIRONMENTAL SCIENCE Unavailable Unavailable BUMBANAC, A STAR PROFESSOR OF ENVIRONMENTAL SCIENCE Unavailable Unavailable BUMBANAC, A STAR PROFESSOR OF ENVIRONMENTAL SCIENCE Unavailable Unavailable BUMBANAC, A STAR PROFESSOR OF ENVIRONMENTAL SCIENCE Unavailable Unavailable BUMBANAC, A STAR PROFESSOR OF ENVIRONMENTAL SCIENCE Unavailable Unavailable BUMBANAC, A STAR PROFESSOR OF ENVIRONMENTAL SCIENCE Unavailable Unavailable BUMBANAC, A STAR PROFESSOR OF ENVIRONMENTAL SCIENCE Unavailable Unavailable BUMBANAC, A STAR PROFESSOR OF ENVIRONMENTAL SCIENCE Unavailable Unavailable BUMBANAC, A STAR PROFESSOR OF ENVIRONMENTAL SCIENCE Unavailable Unavailable BUMBANAC, A STAR PROFESSOR OF ENVIRONMENTAL SCIENCE Unavailable Unavailable BUMBANAC, A STAR PROFESSOR OF ENVIRONMENTAL SCIENCE Unavailable Unavailable BUMBANAC, A STAR PROFESSOR OF ENVIRONMENTAL SCIENCE Unavailable Unavailable BUMBANAC, A STAR PROFESSOR OF ENVIRONMENTAL SCIENCE Unavailable Unavailable BUMBANAC, A STAR PROFESSOR OF ENVIRONMENTAL SCIENCE Unavailable Unavailable BUMBANAC, A STAR PROFESSOR OF ENVIRONMENTAL SCIENCE Unavailable Unavailable BUMBANAC, A STAR PROFESSOR OF ENVIRONMENTAL SCIENCE Unavailable Unavailable BUMBANAC, A STAR PROFESSOR OF ENVIRONMENTAL SCIENCE Unavailable Unavailable BUMBANAC, A STAR PROFESSOR OF ENVIRONMENTAL SCIENCE Unavailable Unavailable BUMBANAC, A STAR PROFESSOR OF ENVIRONMENTAL SCIENCE Unavailable Unavailable BUMBANAC, A STAR PROFESSOR OF ENVIRONMENTAL SCIENCE Unavailable Unavailable IKER, LAKEISHA TRENCH SHOVEL OPERATOR Unavailable Unavailable IKER, LAKEISHA TRENCH SHOVEL OPERATOR Unavailable Unavailable Byrd, A Andres PA Unavailable Unavailable Byrd, A Andres PA Unavailable Unavailable Byrd, A Andres PA Unavailable Unavailable Byrd, A Andres PA Unavailable Unavailable Byrd, A Andres PA Unavailable Unavailable Byrd, A Andres PA Unavailable Unavailable Byrd, A Andres PA Unavailable Unavailable AMJULEE VANCE MD Unavailable Unavailable AMJULEE VANCE MD Unavailable Unavailable AMJULEE VANCE MD Unavailable Unavailable AMJULEE VANCE MD Unavailable Unavailable AMJULEE VANCE MD Unavailable Unavailable AMCHAPARRITA VANCEA MD Unavailable Unavailable AMJULEE VANCE MD Unavailable Unavailable AMJULEE VANCE MD Unavailable Unavailable AMJULEE VANCE MD Unavailable Unavailable AMERCHAPARRITA ALEMANA MD Unavailable Unavailable AMERCHAPARRITA ALEMANA MD Unavailable Unavailable AMCHAPARRITA VANCEA MD Unavailable Unavailable MYA SAGASTUME MD Unavailable [...] Unavailable SAGASTUMEMYA GEORGES MD Unavailable Unavailable SAGASTUMEMYA MD Unavailable Unavailable SAGASTUMEMYA GEORGES MD Unavailable Unavailable SAGASTUMEMYA GEORGES MD Unavailable Unavailable SAGASTUMEMYA GEORGES MD Unavailable Unavailable SAGASTUMEMYA GEORGES MD Unavailable Unavailable SAGASTUMEMYA GEORGES MD Unavailable Unavailable SAGASTUMEMYA MD Unavailable Unavailable SAGASTUMEMYA GEORGES MD Unavailable [...] GEORGES MD Unavailable Unavailable MAURA, B BRONSON PROFESSOR OF ENVIRONMENTAL SCIENCE Unavailable Unavailable MAURA, B BRONSON PROFESSOR OF ENVIRONMENTAL SCIENCE Unavailable Unavailable MAURA, B BRONSON PROFESSOR OF ENVIRONMENTAL SCIENCE Unavailable Unavailable MAURA, B BRONSON PROFESSOR OF ENVIRONMENTAL SCIENCE Unavailable Unavailable MAURA, B BRONSON PROFESSOR OF ENVIRONMENTAL SCIENCE Unavailable Unavailable MAURA, B BRONSON PROFESSOR OF ENVIRONMENTAL SCIENCE Unavailable Unavailable MAURA, B BRONSON PROFESSOR OF ENVIRONMENTAL SCIENCE Unavailable Unavailable MAURA, B BRONSON PROFESSOR OF ENVIRONMENTAL SCIENCE Unavailable Unavailable MARUA, B BRONSON PROFESSOR OF ENVIRONMENTAL SCIENCE Unavailable Unavailable MAURA, B BRONSON PROFESSOR OF ENVIRONMENTAL SCIENCE Unavailable Unavailable MAURA, B BRONSON PROFESSOR OF ENVIRONMENTAL SCIENCE Unavailable Unavailable MAURA, B BRONSON PROFESSOR OF ENVIRONMENTAL SCIENCE Unavailable Unavailable MAURA, B BRONSON PROFESSOR OF ENVIRONMENTAL SCIENCE Unavailable Unavailable MAURA, B BRONSON PROFESSOR OF ENVIRONMENTAL SCIENCE Unavailable Unavailable MAURA, B BRONSON PROFESSOR OF ENVIRONMENTAL SCIENCE Unavailable Unavailable MAURA, B BRONSON PROFESSOR OF ENVIRONMENTAL SCIENCE Unavailable Unavailable MAURA, B BRONSON PROFESSOR OF ENVIRONMENTAL SCIENCE Unavailable Unavailable MAURA, B BRONSON PROFESSOR OF ENVIRONMENTAL SCIENCE Unavailable Unavailable MAURA, B BRONSON PROFESSOR OF ENVIRONMENTAL SCIENCE Unavailable Unavailable MAURA, B BRONSON PROFESSOR OF ENVIRONMENTAL SCIENCE Unavailable Unavailable MAURA, B BRONSON PROFESSOR OF ENVIRONMENTAL SCIENCE Unavailable Unavailable MAURA, B BRONSON PROFESSOR OF ENVIRONMENTAL SCIENCE Unavailable Unavailable MAURA, B BRONSON PROFESSOR OF ENVIRONMENTAL SCIENCE Unavailable Unavailable MAURA, B BRONSON PROFESSOR OF ENVIRONMENTAL SCIENCE Unavailable Unavailable MAURA, B BRONSON PROFESSOR OF ENVIRONMENTAL SCIENCE Unavailable Unavailable MAURA, B BRONSON PROFESSOR OF ENVIRONMENTAL SCIENCE Unavailable Unavailable MAURA, B BRONSON PROFESSOR OF ENVIRONMENTAL SCIENCE Unavailable Unavailable MAURA, B BRONSON PROFESSOR OF ENVIRONMENTAL SCIENCE Unavailable Unavailable MAURA, B BRONSON PROFESSOR OF ENVIRONMENTAL SCIENCE Unavailable Unavailable MAURA, B BRONSON PROFESSOR OF ENVIRONMENTAL SCIENCE Unavailable Unavailable MAURA, B BRONSON PROFESSOR OF ENVIRONMENTAL SCIENCE Unavailable Unavailable MAURA, B BRONSON PROFESSOR OF ENVIRONMENTAL SCIENCE Unavailable Unavailable MAURA, B BRONSON PROFESSOR OF ENVIRONMENTAL SCIENCE Unavailable Unavailable MAURA, B BRONSON PROFESSOR OF ENVIRONMENTAL SCIENCE Unavailable Unavailable MAURA, B BRONSON PROFESSOR OF ENVIRONMENTAL SCIENCE Unavailable Unavailable MAURA, B BRONSON PROFESSOR OF ENVIRONMENTAL SCIENCE Unavailable Unavailable MAURA, B BRONSON PROFESSOR OF ENVIRONMENTAL SCIENCE Unavailable Unavailable MAURA, B BRONSON PROFESSOR OF ENVIRONMENTAL SCIENCE Unavailable Unavailable MAURA, B BRONSON PROFESSOR OF ENVIRONMENTAL SCIENCE Unavailable Unavailable MAURA, B BRONSON PROFESSOR OF ENVIRONMENTAL SCIENCE Unavailable Unavailable MAURA, B BRONSON PROFESSOR OF ENVIRONMENTAL SCIENCE Unavailable Unavailable MAURA, B BRONSON PROFESSOR OF ENVIRONMENTAL SCIENCE Unavailable Unavailable MAURA, B BRONSON PROFESSOR OF ENVIRONMENTAL SCIENCE Unavailable Unavailable MAURA, B BRONSON PROFESSOR OF ENVIRONMENTAL SCIENCE Unavailable Unavailable MAURA, B BRONSON PROFESSOR OF ENVIRONMENTAL SCIENCE Unavailable Unavailable MAURA, B BRONSON PROFESSOR OF ENVIRONMENTAL SCIENCE Unavailable Unavailable MAURA, B BRONSON PROFESSOR OF ENVIRONMENTAL SCIENCE Unavailable Unavailable MAURA, B BRONSON PROFESSOR OF ENVIRONMENTAL SCIENCE Unavailable Unavailable MAURA, B BRONSON PROFESSOR OF ENVIRONMENTAL SCIENCE Unavailable Unavailable MAURA, B BRONSON PROFESSOR OF ENVIRONMENTAL SCIENCE Unavailable Unavailable MAURA, B BRONSON PROFESSOR OF ENVIRONMENTAL SCIENCE Unavailable Unavailable MAURA, B BRONSON PROFESSOR OF ENVIRONMENTAL SCIENCE Unavailable Unavailable MAURA, B BRONSON PROFESSOR OF ENVIRONMENTAL SCIENCE Unavailable Unavailable MAURA, B BRONSON PROFESSOR OF ENVIRONMENTAL SCIENCE Unavailable Unavailable MAURA, B BRONSON PROFESSOR OF ENVIRONMENTAL SCIENCE Unavailable Unavailable MAURA, B BRONSON PROFESSOR OF ENVIRONMENTAL SCIENCE Unavailable Unavailable MAURA, B BRONSON PROFESSOR OF ENVIRONMENTAL SCIENCE Unavailable Unavailable MAURA, B BRONSON PROFESSOR OF ENVIRONMENTAL SCIENCE Unavailable Unavailable MAURA, B BRONSON PROFESSOR OF ENVIRONMENTAL SCIENCE Unavailable Unavailable MAURA, B BRONSON PROFESSOR OF ENVIRONMENTAL SCIENCE Unavailable Unavailable MAURA, B BRONSON PROFESSOR OF ENVIRONMENTAL SCIENCE Unavailable Unavailable BUMBANAC, A STAR PROFESSOR OF ENVIRONMENTAL SCIENCE Unavailable Unavailable BUMBANAC, A STAR PROFESSOR OF ENVIRONMENTAL SCIENCE Unavailable Unavailable BUMBANAC, A STAR PROFESSOR OF ENVIRONMENTAL SCIENCE Unavailable Unavailable BUMBANAC, A STAR PROFESSOR OF ENVIRONMENTAL SCIENCE Unavailable Unavailable BUMBANAC, A STAR PROFESSOR OF ENVIRONMENTAL SCIENCE Unavailable Unavailable BUMBANAC, A STAR PROFESSOR OF ENVIRONMENTAL SCIENCE Unavailable Unavailable BUMBANAC, A STAR PROFESSOR OF ENVIRONMENTAL SCIENCE Unavailable Unavailable BUMBANAC, A STAR PROFESSOR OF ENVIRONMENTAL SCIENCE Unavailable Unavailable BUMBANAC, A STAR PROFESSOR OF ENVIRONMENTAL SCIENCE Unavailable Unavailable BUMBANAC, A STAR PROFESSOR OF ENVIRONMENTAL SCIENCE Unavailable Unavailable BUMBANAC, A STAR PROFESSOR OF ENVIRONMENTAL SCIENCE Unavailable Unavailable BUMBANAC, A STAR PROFESSOR OF ENVIRONMENTAL SCIENCE Unavailable Unavailable BUMBANAC, A STAR PROFESSOR OF ENVIRONMENTAL SCIENCE Unavailable Unavailable BUMBANAC, A STAR PROFESSOR OF ENVIRONMENTAL SCIENCE Unavailable Unavailable BUMBANAC, A STAR PROFESSOR OF ENVIRONMENTAL SCIENCE Unavailable Unavailable BUMBANAC, A STAR PROFESSOR OF ENVIRONMENTAL SCIENCE Unavailable Unavailable BUMBANAC, A STAR PROFESSOR OF ENVIRONMENTAL SCIENCE Unavailable Unavailable BUMBANAC, A STAR PROFESSOR OF ENVIRONMENTAL SCIENCE Unavailable Unavailable BUMBANAC, A STAR PROFESSOR OF ENVIRONMENTAL SCIENCE Unavailable Unavailable BUMBANAC, A STAR PROFESSOR OF ENVIRONMENTAL SCIENCE Unavailable Unavailable BUMBANAC, A STAR PROFESSOR OF ENVIRONMENTAL SCIENCE Unavailable Unavailable BUMBANAC, A STAR PROFESSOR OF ENVIRONMENTAL SCIENCE Unavailable Unavailable BUMBANAC, A STAR PROFESSOR OF ENVIRONMENTAL SCIENCE Unavailable Unavailable BUMBANAC, A STAR PROFESSOR OF ENVIRONMENTAL SCIENCE Unavailable Unavailable BUMBANAC, A STAR PROFESSOR OF ENVIRONMENTAL SCIENCE Unavailable Unavailable BUMBANAC, A STAR PROFESSOR OF ENVIRONMENTAL SCIENCE Unavailable Unavailable BUMBANAC, A STAR PROFESSOR OF ENVIRONMENTAL SCIENCE Unavailable Unavailable BUMBANAC, A STAR PROFESSOR OF ENVIRONMENTAL SCIENCE Unavailable Unavailable BUMBANAC, A STAR PROFESSOR OF ENVIRONMENTAL SCIENCE Unavailable Unavailable BUMBANAC, A STAR PROFESSOR OF ENVIRONMENTAL SCIENCE Unavailable Unavailable BUMBANAC, A STAR PROFESSOR OF ENVIRONMENTAL SCIENCE Unavailable Unavailable KERNS, ANA MARIA EVANGELIST PROFESSOR OF ENVIRONMENTAL SCIENCE Unavailable Unavailable KERNS, ANA MARIA EVANGELIST PROFESSOR OF ENVIRONMENTAL SCIENCE Unavailable Unavailable KERNS, ANA MARIA EVANGELIST PROFESSOR OF ENVIRONMENTAL SCIENCE Unavailable Unavailable KERNS, ANA MARIA EVANGELIST PROFESSOR OF ENVIRONMENTAL SCIENCE Unavailable Unavailable KERNS, ANA MARIA EVANGELIST PROFESSOR OF ENVIRONMENTAL SCIENCE Unavailable Unavailable KERNS, ANA MARIA EVANGELIST PROFESSOR OF ENVIRONMENTAL SCIENCE Unavailable Unavailable KERNS, ANA MARIA EVANGELIST PROFESSOR OF ENVIRONMENTAL SCIENCE Unavailable Unavailable KERNS, ANA MARIA EVANGELIST PROFESSOR OF ENVIRONMENTAL SCIENCE Unavailable Unavailable KERNS, ANA MARIA EVANGELIST PROFESSOR OF ENVIRONMENTAL SCIENCE Unavailable Unavailable KERNS, ANA MARIA EVANGELIST PROFESSOR OF ENVIRONMENTAL SCIENCE Unavailable Unavailable KENRS, ANA MARIA EVANGELIST PROFESSOR OF ENVIRONMENTAL SCIENCE Unavailable Unavailable KERNS, ANA MARIA EVANGELIST PROFESSOR OF ENVIRONMENTAL SCIENCE Unavailable Unavailable KERNS, ANA MARIA EVANGELIST PROFESSOR OF ENVIRONMENTAL SCIENCE Unavailable Unavailable KERNS, ANA MARIA EVANGELIST PROFESSOR OF ENVIRONMENTAL SCIENCE Unavailable Unavailable KERNS, ANA MARIA EVANGELIST PROFESSOR OF ENVIRONMENTAL SCIENCE Unavailable Unavailable KERNS, ANA MARIA EVANGELIST PROFESSOR OF ENVIRONMENTAL SCIENCE Unavailable Unavailable KERNS, ANA MARIA EVANGELIST PROFESSOR OF ENVIRONMENTAL SCIENCE Unavailable Unavailable KERNS, ANA MARIA EVANGELIST PROFESSOR OF ENVIRONMENTAL SCIENCE Unavailable Unavailable KERNS, ANA MARIA EVANGELIST PROFESSOR OF ENVIRONMENTAL SCIENCE Unavailable Unavailable KERNS, ANA MARIA EVANGELIST PROFESSOR OF ENVIRONMENTAL SCIENCE Unavailable Unavailable KERNS, ANA MARIA EVANGELIST PROFESSOR OF ENVIRONMENTAL SCIENCE Unavailable Unavailable KERNS, ANA MARIA EVANGELIST PROFESSOR OF ENVIRONMENTAL SCIENCE Unavailable Unavailable KERNS, ANA MARIA EVANGELIST PROFESSOR OF ENVIRONMENTAL SCIENCE Unavailable Unavailable TURRIN, NADYA Unavailable Unavailable TURRIN, NADYA Unavailable Unavailable TURRIN, NADYA Unavailable Unavailable TURRIN, NADYA Unavailable Unavailable Seth, D Lamine PROFESSOR OF ENVIRONMENTAL SCIENCE Unavailable Unavailable Seth, D Lamine PROFESSOR OF ENVIRONMENTAL SCIENCE Unavailable Unavailable Seth, D Lamine PROFESSOR OF ENVIRONMENTAL SCIENCE Unavailable Unavailable Seth, D Lamine PROFESSOR OF ENVIRONMENTAL SCIENCE Unavailable Unavailable Seth, D Lamine PROFESSOR OF ENVIRONMENTAL SCIENCE Unavailable Unavailable Seth, D Lamine PROFESSOR OF ENVIRONMENTAL SCIENCE Unavailable Unavailable Seth, D Lamine PROFESSOR OF ENVIRONMENTAL SCIENCE Unavailable Unavailable Seth, D Lamine PROFESSOR OF ENVIRONMENTAL SCIENCE Unavailable Unavailable Seth, D Lamine PROFESSOR OF ENVIRONMENTAL SCIENCE Unavailable Unavailable Seth, D Lamine PROFESSOR OF ENVIRONMENTAL SCIENCE Unavailable Unavailable Seth, D Lamine PROFESSOR OF ENVIRONMENTAL SCIENCE Unavailable Unavailable Seth, D Lamine PROFESSOR OF ENVIRONMENTAL SCIENCE Unavailable Unavailable Seth, D Lamine PROFESSOR OF ENVIRONMENTAL SCIENCE Unavailable Unavailable Seth, D Lamine PROFESSOR OF ENVIRONMENTAL SCIENCE Unavailable Unavailable Seth, D Lamine PROFESSOR OF ENVIRONMENTAL SCIENCE Unavailable Unavailable Seth, D Lamine PROFESSOR OF ENVIRONMENTAL SCIENCE Unavailable Unavailable Seth, D Lamine PROFESSOR OF ENVIRONMENTAL SCIENCE Unavailable Unavailable Seth, D Lamine PROFESSOR OF ENVIRONMENTAL SCIENCE Unavailable Unavailable Seth, D Lamine PROFESSOR OF ENVIRONMENTAL SCIENCE Unavailable Unavailable Seth, D Lamine PROFESSOR OF ENVIRONMENTAL SCIENCE Unavailable Unavailable Seth, D Lamine PROFESSOR OF ENVIRONMENTAL SCIENCE Unavailable Unavailable Seth, D Lamine PROFESSOR OF ENVIRONMENTAL SCIENCE Unavailable Unavailable Seth, D Lamine PROFESSOR OF ENVIRONMENTAL SCIENCE Unavailable Unavailable Seth, D Lamine PROFESSOR OF ENVIRONMENTAL SCIENCE Unavailable Unavailable Seth, D Lamine PROFESSOR OF ENVIRONMENTAL SCIENCE Unavailable Unavailable Seth, D Lamine PROFESSOR OF ENVIRONMENTAL SCIENCE Unavailable Unavailable Seth, D Lamine PROFESSOR OF ENVIRONMENTAL SCIENCE Unavailable Unavailable Seth, D Lamine PROFESSOR OF ENVIRONMENTAL SCIENCE Unavailable Unavailable Seth, D Lamine PROFESSOR OF ENVIRONMENTAL SCIENCE Unavailable Unavailable Seth, D Lamine PROFESSOR OF ENVIRONMENTAL SCIENCE Unavailable Unavailable Seth, D Lamine PROFESSOR OF ENVIRONMENTAL SCIENCE Unavailable Unavailable Seth, D Lamine PROFESSOR OF ENVIRONMENTAL SCIENCE Unavailable Unavailable Seth, D Lamine PROFESSOR OF ENVIRONMENTAL SCIENCE Unavailable Unavailable Seth, D Lamine PROFESSOR OF ENVIRONMENTAL SCIENCE Unavailable Unavailable Seth, D Lamine PROFESSOR OF ENVIRONMENTAL SCIENCE Unavailable Unavailable Seth, D Lamine PROFESSOR OF ENVIRONMENTAL SCIENCE Unavailable Unavailable Seth, D Lamine PROFESSOR OF ENVIRONMENTAL SCIENCE Unavailable Unavailable Seth, D Lamine PROFESSOR OF ENVIRONMENTAL SCIENCE Unavailable Unavailable Seth, D Lamine PROFESSOR OF ENVIRONMENTAL SCIENCE Unavailable Unavailable Seth, D Lamine PROFESSOR OF ENVIRONMENTAL SCIENCE Unavailable Unavailable Jonathan Benoit MD Unavailable Unavailable [...] Unavailable Jonathan Benoit MD Unavailable Unavailable Fish, B Elvie HECTOR [...] Wineman JR, R Javier PA-C Unavailable Unavailable [facility] [id number], [phone] Unavailable Unavailable DEL, HEATHER DAVIDA PA Unavailable [...] Unavailable Unavailable Gera Alexandra MD Unavailable Unavailable Grea Alexandra MD Unavailable Unavailable Gera Alexandra MD [...] Unavailable DJOUINI, KIARRA PA-C Unavailable Unavailable Rowland, Loivia MHC Unavailable Unavailable Rowland, Olivia MHC Unavailable [...] Unavailable Unavailable Yon Cota MD Unavailable Unavailable Wilestrellae, Fadia Davidson [facility] Unavailable Unavailable Fish, Jonathan Bermeo MD Unavailable Unavailable Fish, Jonathan Bermeo MD Unavailable Unavailable Jonathan Benoit MD Unavailable Unavailable FishJonathan MD Unavailable Unavailable FishJonathan MD Unavailable Unavailable Fish, Jonathan Bermeo MD [...] Unavailable Fish, Jonathan Bermeo MD Unavailable Unavailable FishJonathan MD Unavailable Unavailable FishJonathan MD Unavailable Unavailable FishJonathan MD Unavailable Unavailable FishJonathan MD Unavailable Unavailable Fish, Jonathan Bermeo MD Unavailable Unavailable Fish, Jonathan Bermeo MD Unavailable Unavailable Fish, Jonathan Bermeo MD Unavailable Unavailable Fish, Jonathan Bermeo MD Unavailable Unavailable FishJonathan MD Unavailable Unavailable Jonathan Benoit MD Unavailable Unavailable FishJonathan MD Unavailable Unavailable Jonathan Benoit MD Unavailable Unavailable FishJonathan MD Unavailable Unavailable FishJonathan MD Unavailable Unavailable FishJonathan MD Unavailable Unavailable FishJonathan MD Unavailable Unavailable FishJonathan MD Unavailable Unavailable Jonathan Benoit MD Unavailable Unavailable FishJonathan MD Unavailable Unavailable Jonathan Benoit MD Unavailable Unavailable Jonathan Benoit MD Unavailable Unavailable FishJonathan MD Unavailable Unavailable FishJonathan MD Unavailable Unavailable FishJonathan MD Unavailable Unavailable FishJonathan MD Unavailable Unavailable Jonathan Benoit MD Unavailable Unavailable Jonathan Benoit MD Unavailable Unavailable FishJonathan MD Unavailable Unavailable FishJonathan MD Unavailable Unavailable Fish, Jonathan Bermeo MD Unavailable Unavailable Fish, Jonathan Bermeo MD Unavailable Unavailable FishJonathan MD Unavailable Unavailable Fish, B Elvie HECTOR Unavailable Unavailable Fish, B Elvie HECTOR Unavailable Unavailable Fish, B Elvie HECTOR Unavailable Unavailable Fish, B Elvie HECTOR Unavailable Unavailable Fish, B Elvie HECTOR Unavailable Unavailable Fish, B Elvie HECTOR Unavailable Unavailable Fish, B Elvie HECTOR Unavailable Unavailable Fish, B Elvie HECTOR Unavailable Unavailable Fish, B Elvie HECTOR Unavailable Unavailable Re-disclosure Warning [...] is protected by Article 27-F of the [facility] Public Health law. If you continue you may have access to information: Regarding HIV / AIDS; Provided by facilities licensed or operated by the [facility] Office of Mental Health; or Provided by the [facility] Office for People With Developmental Disabilities. If such information is present, then the following [facility] mandated warning applies: This information has been [...] law may result in a fine or mcfp sentence or both. A general authorization for the release of medical or other information is NOT sufficient authorization for further disc losure. Allergies and Adverse Reactions Type Description Substance Reaction Status Data Source(s ) No Known Food Allergies No Known Food Allergies [facility] Propensity to adverse reactions VICODIN VICODIN [facility] Propensity to adverse reactions LATEX LATEX [facility] Drug allergy MORPHINE MORPHINE [facility] Drug allergy CODEINE CODEINE [facility] Propensity to adverse reactions OPIOID OPIOID HIVES [facility] Family History Family Member Name Family Member Gender Family Member Status Date o f Status Description Data Source(s) Unknown Unknown Problem [facility] ([facility]) Encounters Encounter Providers Location Date Indications Data Source(s ) Outpatient Attender: Olivia Rowland MHCConsultant: MYA HUFFMAN MD 03/16/2021 03:45:00 PM EDT - 03/16/2021 03:45:[address] [facility] Outpatient Attender: Olivia Rowland MHCConsultant: MYA HUFFMAN MD 03/10/2021 03:07:00 PM EDT - 03/10/2021 03:07:[address] [facility] Outpatient Attender: MYA SAGASTUME MDConsultant: MYA Lind MD 02/26/2021 01:13:00 PM EDT - 02/26/2021 02:13:[address] [facility] Outpatient Attender: EVANGELIST KERNS NPConsultant: MYA SAGASTUME MD 02/26/2021 01:11:00 PM EDT - 02/26/2021 02:11:[address] [facility] Outpatient Attender: Olivia Rowland MHCA ttender: EVANGELIST KERNS NPConsultant: MYA SAGASTUME MD 02/24/2021 03:59:00 PM EDT - 02/24/2021 03:59:[address] [facility] Outpatient Attender: MARK KENNEY NPConsultant: MYA GEORGES MD 02/22/2021 08:29:00 AM EDT - 02/22/2021 08:29:[address] [facility] Emergency Attender: NADYA AWADConsultant: MYA Lind MD 02/22/2021 07:44:00 AM EDT - 02/22/2021 07:59:[address] [facility] Patient discharged. Outpatient Attender: EVANGELIST KERNS PROFESSOR OF ENVIRONMENTAL SCIENCE Family Practice 02/17/2021 02 :15:00 PM EDT [facility] ([facility]) Outpatient Attender: EVANGELIST KERNS NPConsultant: MYA SAGASTUME MD 02/17/2021 01:50:00 PM EDT - 02/17/2021 01:50:[address] [facility] Outpatient Attender: MYA SAGASTUME MDConsultant: MYA Lind MD 02/17/2021 01:23:00 PM EDT - 02/17/2021 01:23:[address] [facility] Outpatient Attender: MYA SAGASTUME MD [facility] 02/17/2021 0 1:00:00 PM EDT [facility] ([facility]) Outpatient Attender: MAXIMO KAUR PAConsultant: MYA GEORGES MD 02/10/2021 09:42:00 AM EDT - 02/10/2021 09:42:[address] [facility] Outpatient Attender: MAXIMO GUSTAFSON [facility] 02/10 09:40:00 AM EDT [facility] ([facility] Outpatient Attender: DAVIDA MATHIS PAConsultant: MYA SAGASTUME MD 01/29/2021 02:00:00 PM EDT - 01/29/2021 02:00:[address] [facility] Outpatient Attender: KIARRA CORREACConsultant: MYA SAGASTUME MD 01/24/2021 02:13:00 PM EDT - 01/24/2021 02:13:[address] [facility] Outpatient Attender: KIARRA MURCIA PA-C [facility] 02:10:00 PM EDT [facility]patient Attender: Olivia Rowland MHCConsultant: MYA HUFFMAN MD 01/22/2021 01:06:00 PM EDT - 01/22/2021 01:06:[address] [facility] Outpatient Attender: Olivia Rowland MHCConsultant: MYA HUFFMAN MD 12/23/2020 03:03:00 PM EDT - 12/23/2020 03:03:[address] [facility] Outpatient Attender: MARK KENNEY NPConsultant: MYA GEORGES MD 11/20/2020 12:31:00 PM EDT - 11/20/2020 12:31:[address] [facility] Outpatient Attender: Olivia Rowland MHCConsultant: MYA HUFFMAN MD 11/18/2020 03:11:00 PM EDT - 11/18/2020 03:11:[address] [facility] Outpatient Attender: MYA SAGASTUME MD Family Practice 11/17/2020 0 1:00:00 PM EDT [facility] ([facility]) Outpatient Attender: MYA SAGASTUME MDConsultant: MYA Lind MD 11/17/2020 12:59:00 PM EDT - 11/17/2020 12:59:[address] [facility] OFFICE OUTPATIENT VISIT 15 MINUTES Attender: Elvie Benoit MD Phy sical Therapy 11/12/2020 10:00:00 AM EDT [facility] ([facility]) Outpatient Attender: Elvie Benoit MDConsultant: MYA Lind MD 11/09/2020 12:33:00 PM EDT - 11/09/2020 01:33:[address] [facility] Outpatient Attender: MAXIMO KAUR PAConsultant: MYA GEORGES MD 11/09/2020 11:27:00 AM EDT - 11/09/2020 11:27:[address] [facility] Outpatient Attender: MAXIMO GUSTAFSON Family Practice 11/09 11:20:00 AM EDT [facility] ([facility] Outpatient Attender: Olivia Rowland MHCConsultant: MYA HUFFMAN MD 10/14/2020 03:04:00 PM EDT - 10/14/2020 03:04:[address] [facility] Outpatient Attender: Lamine Ann NPConsultant: MYA MOHAMUD MD 10/06/2020 01:50:00 PM EDT - 10/06/2020 01:50:[address] [facility] Outpatient Attender: Eloise CORREACConsultant: MYA HUFFMAN MD 10/03/2020 01:47:00 PM EDT - 10/03/2020 01:47:[address] [facility] Outpatient Attender: MARK KENNEY NP Family Practice 09/25 02:50:00 PM EDT [facility] ([facility] Outpatient Attender: MARK KENNEY NPConsultant: MYA GEORGES MD 09/25/2020 02:36:00 PM EDT - 09/25/2020 02:36:[address] [facility] Outpatient Attender: Olivia Rowland MHCConsultant: MYA HUFFMAN MD 09/16/2020 03:01:00 PM EDT - 09/16/2020 03:01:[address] [facility] Outpatient Attender: Javier Cruz JR [facility] 09/12 02:20:00 PM EDT [facility] ([facility] Outpatient Attender: Javier Cruz JRConsultant: MYA GEORGES MD 09/12/2020 02:18:00 PM EDT - 09/12/2020 02:18:[address] [facility] Outpatient Attender: MARK KENNEY NPConsultant: MYA GEORGES MD 09/03/2020 03:35:00 PM EDT - 09/03/2020 03:35:[address] [facility] Outpatient Attender: Olivia Rowland MHCConsultant: MYA HUFFMAN MD 08/26/2020 03:03:00 PM EDT - 08/26/2020 03:03:[address] [facility] Outpatient Attender: Olivia Rowland MHCConsultant: MYA HUFFMAN MD 08/11/2020 02:58:00 PM EST - 08/11/2020 02:58:[address] [facility] Outpatient Attender: MAXIMO KAUR PAConsultant: MYA GEORGES MD 08/07/2020 11:21:00 AM EST - 08/07/2020 11:21:[address] [facility] Outpatient Attender: MAXIMO GUSTAFSON Family Practice 08/07 10:20:00 AM EST [facility] ([facility] Outpatient Attender: MAXIMO KAUR PAConsultant: MYA GEORGES MD 07/31/2020 01:03:00 PM EST - 07/31/2020 02:03:00 PM [facility] Outpatient Attender: Olivia Rowland MHCConsultant: MYA HUFFMAN MD 07/29/2020 02:56:00 PM [facility] - 07/29/2020 02:56:00 PM [facility] Outpatient Attender: MAXIMO KAUR PAConsultant: MYA GEORGES MD 07/07/2020 11:05:00 AM [facility] - 07/07/2020 11:05:00 AM [facility] Outpatient Attender: Olivia Rowland MHCConsultant: MYA HUFFMAN MD 07/01/2020 02:50:00 PM [facility] - 07/01/2020 02:50:00 PM [facility] Outpatient Attender: Andres Byrd PAConsultant: MYA MOHAMUD MD 06/30/2020 10:56:00 AM [facility] - 06/30/2020 10:56:00 AM [facility] Outpatient Attender: Olivia Rowland MHCConsultant: MYA HUFFMAN MD 06/17/2020 02:55:00 PM [facility] - 06/17/2020 02:55:00 PM [facility] Outpatient Attender: MYA SAGASTUME MDConsultant: MYA Lind MD 06/15/2020 09:21:00 AM [facility] - 06/15/2020 09:21:00 AM [facility] Outpatient Attender: MYA SAGASTUME MD Family Practice 06/15/2020 0 8:20:00 AM EST [facility] ([facility]) Outpatient Attender: Yon Cota MD Main office [facility] 06/11/2020 01:15:00 PM EST [facility] ([facility] ) Outpatient Attender: Olivia Rowland MHCConsultant: MYA HUFFMAN MD 05/25/2020 03:55:00 PM EST - 05/25/2020 03:55:00 PM [facility] Outpatient Attender: MAXIMO KAUR PAConsultant: MYA GEORGES MD 05/25/2020 02:50:00 PM EST - 05/25/2020 02:50:00 PM [facility] Outpatient Attender: [id number] [id number] Family Practice 05/25/2020 02:00:00 PM EST [facility] ([facility] Outpatient Attender: Elvie Benoit MD Physical Therapy 05/22 02:00:00 PM EST [facility] ([facility]) Outpatient Attender: MYA SAGASTUME MDConsultant: MYA Lind MD 05/14/2020 02:57:00 PM EST - 05/14/2020 02:57:[address] [facility] Outpatient Attender: MYA SAGASTUME MD Family Practice 05/14/2020 0 2:00:00 PM EST [facility] ([facility]) Outpatient Attender: Olivia Rowland MHCConsultant: MYA HUFFMAN MD 05/12/2020 10:40:00 AM EST - 05/12/2020 10:40:00 AM [facility] Outpatient Attender: LAKEISHA OSEI WReferrer: Kanu Alexandra MDConsultant: MYA SAGASTUME MD 04/01/2020 10:00:00 AM E DT - 04/01/2020 10:00:[address] [facility] Outpatient Attender: BRONSON LORENZO NPConsultant: MYA MOHAMUD MD 03/31/2020 11:36:00 AM EDT - 03/31/2020 12:36:[address] [facility] Outpatient Attender: Elvie Benoit MDRef errer: Elvie Benoit MDConsultant: MYA SAGASTUME MD 03/31/2020 09:50:00 AM EDT - 03/31/2020 10:00:[address] [facility] Patient discharged. Outpatient Attender: Elvie Benoit MD Physical Therapy 03/19 03:00:00 PM EDT [facility] ([facility]) Outpatient Attender: BRONSON LORENZO NPConsultant: MYA MOHAMUD MD 03/17/2020 01:53:00 PM EDT - 03/17/2020 02:53:[address] [facility] Outpatient Attender: ROBERTO PATTON PAConsultant: MYA SAGASTUME MD 03/08/2020 01:52:00 PM EDT - 03/08/2020 01:52:[address] [facility] Outpatient Attender: MARK KENNEY NPConsultant: MYA GEORGES MD 02/26/2020 12:20:00 PM EDT - 02/26/2020 12:20:[address] [facility] Outpatient Attender: MARK KENNEY NP Family Practice 02/25 12:15:00 PM EDT [facility] ([facility] Outpatient Attender: MYA SAGASTUME MD Family Practice 02/24/2020 0 1:00:00 PM EDT [facility] ([facility]) Outpatient Attender: MYA SAGASTUME MDConsultant: MYA Lind MD 02/24/2020 12:59:00 PM EDT - 02/24/2020 12:59:[address] [facility] Outpatient Attender: Yon Cota MD Main office - [place] 01/30/2020 10:00:00 AM EDT [facility] ([facility] Outpatient Attender: Lety Reaves [facility] Referrer: Kaun Alexandra MDConsultant: MYA SAGASTUME MD 01/22/2020 03:03:00 PM EDT - 01/22/2020 03:03:[address] [facility] Outpatient Attender: BRONSON LORENZO NP Physical Therapy 03:45:00 PM EDT [facility] ([facility] Outpatient Attender: MYA SAGASTUME MDConsultant: MYA Lind MD 01/14/2020 03:49:00 PM EDT - 01/14/2020 04:49:[address] [facility] Outpatient Attender: MYA SAGASTUME MDConsultant: MYA Lind MD 01/13/2020 03:02:00 PM EDT - 01/13/2020 03:02:[address] [facility] Emergency Attender: GODWIN GABRIEL DOConsultant: MYA Lind MD 01/11/2020 12:57:00 PM EDT - 01/11/2020 04:36:[address] [facility] Patient discharged. Outpatient Attender: MYA SAGASTUME MDConsultant: MYA Lind MD 01/06/2020 01:26:00 PM EDT - 01/06/2020 01:26:[address] [facility] Emergency Attender: FABYROSIE JOYAROCKYAnnemarie MDConsultant: MYA SAGASTUME MD 12/26/2019 09:47:00 PM EDT - 12/26/2019 11:36:[address] [facility] Patient discharged. Outpatient Attender: MYA SAGASTUME MDConsultant: MYA Lind MD 12/10/2019 02:09:00 PM EDT - 12/10/2019 02:09:[address] [facility] Immunizations Vaccine Date Status Description Data Source(s) COVID-19 VACCINE Moderna 11/05/2020 12:00:00 AM EDT completed [facility] Vaccine Series Complete: YESThis Data wa s Submitted to [facility] Via [employer]. COVID-19 VACCINE Moderna 10/08/2020 12:00:00 AM EDT completed [facility] Vaccine Series Complete: NOThis Data was Submitted to [facility] [employer]. New in 2011. IIV4 02/24/2020 01:40:00 PM EDT completed [facility] ([facility]) Medications Medication Brand Name Start Date Product Form Dose Route Admi nistrative Instructions Pharmacy Instructions Status Indications Reaction Description Data Source(s) Metronidazole 500 MG Oral Tablet Metronidazole 03/01/2021 12:00:00 AM EDT ORAL active [facility] ([facility]) Fluconazole 150 MG Oral Tablet Fluconazole 03/01/2021 12:00:00 AM EDT ORAL active [facility] ([facility]) Ciprofloxacin 250 MG Oral Tablet [Cipro] Cipro 02/18/2021 12:00: 00 AM EDT ORAL active [facility] ([facility]) Emgality Emgality 02/17/2021 12:00:00 AM EDT activ e [facility] ([facility]) Fluconazole 150 MG Oral Tablet Fluconazole 02/17/2021 12:00:00 AM EDT ORAL active [facility] ([facility]) Vitamin B 12 1 MG Oral Tablet Vitamin B-12 01/04/2021 12:00:00 AM EDT ORAL active [facility] ([facility]) rizatriptan 10 MG Disintegrating Oral Tablet Rizatriptan Alfredo zoate 10/15/2020 12:00:00 AM EDT completed [facility] ([facility]) rizatriptan 10 MG Disintegrating Oral Tablet Rizatriptan Alfredo zoate 10/15/2020 12:00:00 AM EDT active M EDENT ([facility]) tizanidine 4 MG Oral Tablet Tizanidine HCL 10/06/2020 12:00:00 AM EDT ORAL completed [facility] ([facility]) Naproxen 500 MG Oral Tablet Naproxen 10/06/2020 12:00:00 AM EDT ORAL completed [facility] ([facility]) Ketorolac (Toradol) Inj 30MG/ML 10/03/2020 12:00:00 AM EDT completed [facility] ([facility]) Medication administered onsite Ketorolac (Toradol) Inj 30MG/ML 09/12/2020 12:00:00 AM EDT completed [facility] ([facility]) Medication administered onsite Pseudoephedrine Hydrochloride 60 MG Oral Tablet Pseudoephedr ine HCL 06/30/2020 12:00:00 AM EST ORAL completed [facility] ([facility]) Aimovig Aimovig 06/11/2020 12:00:00 AM EST active [facility] ([facility]) Vraylar Vraylar 05/23/2020 12:00:00 AM EST ORAL active [facility] ([facility]) Ibuprofen 800 MG Oral Tablet Ibuprofen 05/22/2020 12:00:00 AM EST active [facility] ([facility]) [place] Carbonate 600 MG Oral Capsule [place] Carbonate 12:00:00 AM EST ORAL active [facility] ([facility]) [place] Carbonate 150 MG Oral Capsule [place] Carbonate 12:00:00 AM EST ORAL active [facility] ([facility]) rizatriptan 10 MG Disintegrating Oral Tablet [Maxalt] Maxalt -MEDICAL ENGINEER 05/17/2020 12:00:00 AM EST ORAL completed [facility] ([facility]) 24 HR Nicotine 0.583 MG/HR Transdermal Patch Nicotine 05/06/2020 12:00:00 AM EST completed [facility] ([facility]) Ofloxacin 3 MG/ML Ophthalmic Solution Ofloxacin (Ophthalmic) 03/08/2020 12:00:00 AM EDT completed [facility] ([facility]) Ergocalciferol 17466 UNT Oral Capsule Vitamin D (Ergocalcife rol) 02/24/2020 12:00:00 AM EDT ORAL active M EDENT ([facility]) montelukast 10 MG Oral Tablet Montelukast Sodium 02/24/2020 12:00:00 AM EDT ORAL active [facility] ([facility]) Flonase Allergy Relief Flonase Allergy Relief 02/24/2020 12:00:00 AM EDT NASAL active [facility] ([facility]) Ibuprofen 800 MG Oral Tablet Ibuprofen 01/30/2020 12:00:00 AM EDT ORAL active [facility] ([facility]) Amitriptyline Hydrochloride 10 MG Oral Tablet Amitriptyline HCL 01/30/2020 12:00:00 AM EDT ORAL completed [facility] ([facility]) Fluconazole 150 MG Oral Tablet Fluconazole 01/13/2020 12:00:00 AM EDT ORAL completed [facility] ([facility]) Escitalopram 10 MG Oral Tablet [Lexapro] Lexapro 01/13/2020 12:00: 00 AM EDT ORAL completed [facility] ([facility]) Sumatriptan Succinate Sumatriptan Succinate 01/06/2020 12:00:00 AM EDT completed [facility] ([facility]) 24 HR Propranolol Hydrochloride 60 MG Extended Release Oral Capsule Propranolol HCL ER 01/06/2020 12:00:00 AM EDT ORAL completed [facility] ([facility]) Loratadine 10 MG Oral Tablet [Claritin] Claritin 01/06/2020 12:00:0 0 AM EDT ORAL completed [facility] ([facility]) Insurance Providers Payer name Policy type / Coverage type Policy ID Covered democrat ID Covered democrat's relationship to mosley Policy [place] Plan Information Medicaid Dental S [id number] [facility] I [id number] Self [id number] [facility] Medigap Part B [id number] Self [employer] COMMUNITY PLAN MCDHMO [id number] SP [id number] [facility] Health Maintenance Organization (HMO) [id number] Self [employer] COMMUNITY PLAN MCDHMO [id number] SP [id number] [employer] COMMUNITY PLAN MCDHMO [id number] SP [id number] [place] [id number] SP [id number] [place] [id number] SP [id number] [employer] COMMUNITY PLAN MCDHMO [id number] SP [id number] SELF PAY ONLY [id number] SP [id number] [facility] COMMUN[place] [id number] 18 [id number] UN[employer] AMERICHOICE XIX -HMO [id number] 18 [id number] [employer] COMMUNITY PLAN MCDHMO [id number] SP [id number] [facility] COMMUNTY PLAN MC [id number] 18 [id number] UN COMMUNITY PLAN XIX [id number] 18 [id number] [facility] [id number] SP [id number] MEDICAID [id number] SP [id number] [employer] COMMUNITY PLAN MCDHMO [id number] SP [id number] HC COMMUNITY PLAN MCDHMO [id number] SP [id number] [facility] Community Plan Commercial [id number] Self [id number] [facility] Community Plan Commercial [id number] Self [id number] [facility] Communty Plan Medicaid [id number] Self [id number] [facility] Health Maintenance Organization (HMO) [id number] [facility] Community Plan Commercial [id number] Self [id number] [facility] Communty Plan Medicaid [id number] 0.6939.0 Self [id number] [facility] Community [facility] Commercial [id number] Self [id number] [facility] Communty Plan Medicaid [id number] 0.6939.[id number] [facility] Community Plan Commercial [id number] Self [id number] [facility] Communty Plan Medicaid [id number] 0.6939.[id number] [facility] Community Plan Commercial [id number] Self [id number] [facility] Communty Plan Medicaid [id number] 0.6939.0 Self [id number] [facility] Community Plan Commercial [id number] Self [id number] [facility] COMMUNITY PLAN [id number] [id number] [facility] Community Plan Commercial [id number] Self [id number] [facility] Communty Plan Medicaid [id number] 0.6939.[id number] [facility] Community Plan Commercial [id number] Self [id number] [facility] Communty Plan Medicaid [id number] 0.6939.0 Self [id number] [facility] Community Plan Commercial [id number] [facility] Community Plan Commercial [id number] .[id number] Self [id number] [facility] Communty Plan Medicaid [id number] 0.6939.[id number] [facility] Community Plan Commercial [id number] .[id number] Self [id number] [facility] Communty Plan Medicaid [id number] 0.6939.0 Self [id number] [facility] Communty Plan Medicaid [id number] 0.6939.[id number] [facility] Community Plan Commercial [id number] Self [id number] [place] [id number] COMMUNITY [facility] O [id number] S [id number] [facility] Communty Plan Medicaid [id number] Self [id number] Medicaid Commercial [id number] Self [id number] MEDICAID -PHYSICIAN [id number] 1 [id number] MEDICAID -O/P EMERGENCY ROOM [id number] [facility] [id number] 18 [id number] SELF PAY ONLY UNAVAILABLE SP UNAV AILABLE [facility] Community Plan Medicaid [id number] Self [id number] [facility]) O [id number] S [id number] [facility] HEA [id number] S [id number] [facility]) O [id number] S [id number] [facility] Health Maintenance Organization (HMO) [id number] Family Dependent [employer] AMERICHOICE XIX -HMO [id number] 18 [id number] [facility] [place] [id number] 10 [id number] [facility](MCAID) O [id number] S [id number] D Managed Care [facility] P [id number] S [id number] [facility] Health Maintenance Organization (HMO) [id number] Self UNHC AMERICHOICE XIX -HMO [id number] 18 [id number] D Managed Care [facility] P UNAVAILABLE S UNAVAILABLE Medicaid Dental S UNAVAILABLE S UN AVAILABLE [facility] [id number] SP [id number] [facility] [id number] SP [id number] MEDICAID [id number] SP [id number] HMO BLUE [id number] SP [id number] HMO BLUE [id number] SP [id number] [facility] [place] [facility] [id number] HU2 [id number] MEDICAID [id number] SP [id number] [facility] [id number] SP [id number] [facility] COMMUNITY PLAN [id number] SP [id number] [facility] [id number] SP [id number] [facility] COMMUNITY PLAN MCDO [id number] SP [id number] [facility] [place] [id number] 18 [id number] [facility] COMMUNTY PLAN [place] [id number] 18 [id number] [facility] COMMUNITY PLAN XIX MC [id number] 18 [id number] [employer] AMERICHOICE XIX -HMO [id number] 18 [id number] [facility] COMMUNITY [facility]AN [id number] [id number] Problems, Conditions, and Diagnoses Code Display Name Description Problem Type Effective Dates Data Source(s) F1220 Cannabis dependence, uncomplicated Cannabis depe ndence, uncomplicated Diagnosis 03/10/2021 03:07:[address] [facility] F3160 Bipolar disorder, current episode mixed, unspecified Bipolar disorder, current episode mixed, unspecified Diagnosis 03/10/2021 03:07:[address] [facility] Z5320 Procedure and treatment not carried out because of patient's decision for unspecified reasons Procedure and treatment not carried out because of patient's decision for unspecified reasons Diagnosis 02/22/2021 07:44:[address] [facility] B15621 Nicotine dependence, cigarettes, uncompl icated Nicotine dependence, cigarettes, uncomplicated Diagnosis 02/22/2021 07:44:[address] [facility] J029 Acute pharyngitis, unspecified Acute pharyngitis, unsp ecified Diagnosis 02/22/2021 07:44:[address] [facility] Z113 Encounter for screening for infections with a predominantly sexual mode of transmission Encounter for screening for infections w ith a predominantly sexual mode of transmission Diagnosis 02/17/2021 01:50:00 PM EDT [facility] B373 Candidiasis of vulva and vagina Candidiasis of vulva a nd vagina Diagnosis 02/17/2021 01:50:[address] [facility] D519 Vitamin B12 deficiency anemia, unspecifi ed Vitamin B12 deficiency anemia, unspecified Diagnosis 02/17/2021 01:23:[address] [facility] E559 Vitamin D deficiency, unspecified Vitamin D defi ciency, unspecified Diagnosis 02/17/2021 01:23:[address] [facility] E71443 Migraine without aura, not intractable, without status migrainosus Migraine without aura, not intractable, without status migrainosus Diagnosis 02/17/2021 01:23:[address] 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 J069 Acute upper respiratory infection, unspe cified Acute upper respiratory infection, unspecified Diagnosis 01/29/2021 02:00:00 PM EDT [facility] Z1152 ENCOUNTER FOR SCREENING FOR COVID-19 ENCOUNTER F OR SCREENING FOR COVID-19 Diagnosis 01/24/2021 02:13:[address] [facility] E611 Iron deficiency Iron deficiency Diagnosis 11/17/2020 12:5 9:[address] [facility] J309 Allergic rhinitis, unspecified Allergic rhinitis, unsp ecified Diagnosis 11/17/2020 12:59:[address] [facility] D693 Immune thrombocytopenic purpura Immune thrombocytopeni c purpura Diagnosis 11/17/2020 12:59:[address] [facility] R946 Abnormal results of thyroid function bobby dies Abnormal results of thyroid function studies Diagnosis 11/09/2020 12:33:[address] [facility] C96628 Muscle spasm of back Muscle spasm of back Diagnosis 10/06/2020 01:50:[address] [facility] R05 Cough Cough Diagnosis 09/25/2020 02:36:[address] 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 Diagnosis 06/30/2020 10:56:00 AM [facility] U52452 Migraine with aura, not intractable, wit hout status migrainosus Migraine with aura, not intractable, without status migrainosus Diagnosis 06/15/2020 09:21:00 AM [facility] E0590 Thyrotoxicosis, unspecified without thyr otoxic crisis or storm Thyrotoxicosis, unspecified without thyrotoxic crisis or storm Diagnosis 05/14/2020 02:57:00 PM [facility] F609 Personality disorder, unspecified Personality di sorder, unspecified Diagnosis 05/14/2020 02:57:00 PM [facility] B90811 Other mucopurulent conjunctivitis, bilat eral Other mucopurulent conjunctivitis, bilateral Diagnosis 03/08/2020 01:52:[address] [facility] Z23 Encounter for immunization Encounter for immunization Diagnosis 02/24/2020 12:59:[address] [facility] D649 Anemia, unspecified Anemia, unspecified Diagnosis 0 02/24/2020 12:59:[address] [facility] F339 Major depressive disorder, recurrent, un specified Major depressive disorder, recurrent, unspecified Diagnosis 02/24/2020 12:59:[address] [facility] Z711 Person with feared health complaint in w shruthi no diagnosis is made Person with feared health complaint in whom no diagnosis is made Diagnosis 01/22/2020 03:03:[address] [facility] D51.9 Cobalamin deficiency Cobalamin deficiency Problem 02/17/2021 12:00:00 AM EDT [facility] ([facility]) G43.009 Migraine without aura, not refractory Mi graine without aura, not refractory Problem 11/17/2020 12:00:00 AM EDT [facility] ([facility]) J30.9 Allergic rhinitis Allergic rhinitis Problem 11/17/2020 12:00:00 AM EDT [facility] ([facility]) F12.20 Cannabis dependence, uncomplicated Cannabis depe ndence, uncomplicated Problem 04/01/2020 12:00:00 AM EDT [facility] ([facility]) F60.9 Personality disorder Personality disorder Problem 04/01/2020 12:00:00 AM EDT [facility] ([facility]) [id number] Cervico-occipital neuralgia Cervico-occipital neuralgi a Problem 01/30/2020 12:00:00 AM EDT [facility] ([facility]) [id number] Neck pain Neck pain Problem 01/30/2020 12:00:00 AM ED T [facility] ([facility]) [id number] Disorders of initiating and maintaining sleep Disorders of initiating and maintaining sleep Problem 01/30/2020 12:00:00 AM EDT [facility] ([facility]) [id number] Chronic tension-type headache Chronic tension-type hea dache Problem 01/30/2020 12:00:00 AM EDT [facility] ([facility]) [id number] Chronic intractable migraine without aur a Chronic intractable migraine without aura Problem 01/30/2020 12:00:00 AM EDT [facility] ([facility]) Surgeries/Procedures Procedure Description Date Indications Data Source(s) Brief Emotional/Behav Assessment W/ Scoring Doc Per Standard Inst 02/17/2021 12:00:00 AM EDT [facility] ([facility]) Admin Patient Focused Health Risk Assessment Instrument 02/17/2021 12:00:00 AM EDT [facility] ([facility]) OFFICE OUTPATIENT NEW 30 MINUTES 02/17/2021 12:00:00 A M EDT [facility] ([facility]) OFFICE OUTPATIENT VISIT 15 MINUTES 02/17/2021 12:00:00 AM EDT [facility] ([facility]) OFFICE OUTPATIENT VISIT 25 MINUTES 02/10/2021 12:00:00 AM EDT [facility] ([facility]) OFFICE OUTPATIENT NEW 10 MINUTES 01/29/2021 12:00:00 A M EDT [facility] ([facility]) Pulse Oximetry Single Determination 01/24/2021 12:00:0 0 AM EDT [facility] ([facility]) OFFICE OUTPATIENT VISIT 15 MINUTES 01/24/2021 12:00:00 AM EDT [facility] ([facility]) OFFICE OUTPATIENT VISIT 15 MINUTES 11/17/2020 12:00:00 AM EDT [facility] ([facility]) OFFICE OUTPATIENT VISIT 15 MINUTES 11/12/2020 12:00:00 AM EDT [facility] ([facility]) OFFICE OUTPATIENT VISIT 25 MINUTES 11/09/2020 12:00:00 AM EDT [facility] ([facility]) OFFICE OUTPATIENT VISIT 15 MINUTES 10/06/2020 12:00:00 AM EDT [facility] ([facility]) OFFICE OUTPATIENT VISIT 15 MINUTES 10/03/2020 12:00:00 AM EDT [facility] ([facility]) OFFICE OUTPATIENT VISIT 15 MINUTES 09/25/2020 12:00:00 AM EDT [facility] ([facility]) OFFICE OUTPATIENT NEW 10 MINUTES 09/12/2020 12:00:00 A M EDT [facility] ([facility]) OFFICE OUTPATIENT VISIT 25 MINUTES 08/07/2020 12:00:00 AM EST [facility] ([facility]) Psychiatric Diag Eval W/Medical Service 07/07/2020 12: 00:00 AM EST [facility] ([facility]) OFFICE OUTPATIENT VISIT 25 MINUTES 05/22/2020 12:00:00 AM EST [facility] ([facility]) Psychiatric Diagnostic Evaluation 04/01/2020 12:00:00 AM EDT [facility] ([facility]) Injection, Single Or Multiple trigger points one or two musc les 03/04/2020 12:00:00 AM EDT [facility] ([facility]) INJECTION ANES OTHER PERIPHERAL NERVE/BRANCH 0 12:00:00 AM EDT [facility] ([facility]) Psychiatric Diagnostic Evaluation 01/22/2020 12:00:00 AM EDT [facility] ([facility]) Results ID Date Data Source [id number] 03/12/2021 02:29:00 PM EDT [facility] Name Value Range Interpretation Code Description Data Kayleen rce(s) Supporting Document(s) SARS coronavirus 2 RNA [Presence] in Res piratory specimen by TRACEY with probe detection NEGATIVE [facility] This lab was ordered by [facility] a nd reported by [facility]. ID Date Data Source [id number] 03/12/2021 02:29:00 PM EDT [facility] ([facility]) Name Value Range Interpretation Code Description Data Kayleen rce(s) Supporting Document(s) Red Blood Count 4.67 10 4.00-5.40 Normal (applies to non-numeric results) [facility]) White Blood Count 17.0 10 4.0-10.0 Above high normal [facility] ([facility]) Hematocrit 44.1 % 36.0-47.0 Normal (applies to non-numeric resul ts) [facility]) Hemoglobin 14.4 g/dL 12.0-15.5 Normal (applies to non-numeric resul ts) [facility]) Mean Corpuscular Volume 94.4 fl 80.0-96.0 Normal ( applies to non-numeric results) [facility]) Mean Corpuscular HGB Conc 32.7 g/dL 32.0-36.5 Normal (applies to non-numeric results) [facility] ([facility]) Mean Corpuscular Hemoglobin 30.8 pg 27.0-33.0 Norm al (applies to non-numeric results) [facility] ([facility]) Red Cell Distribution Width 13.5 % 11.5-14.5 Norm al (applies to non-numeric results) [facility] ([facility]) Platelet Count, Automated 356 10 150-450 Normal (applies to non-numeric results) [facility] ([facility]) Nucleated Red Blood Cell % 0.0 % 0-0 Normal (applies to n on-numeric results) [facility] ([facility]) ID Date Data Source [id number] 03/12/2021 02:29:00 PM EDT [facility] ([facility]) Name Value Range Interpretation Code Description Data Kayleen rce(s) Supporting Document(s) Ethanol [Mass/volume] in Serum or Plasma Laboratory test result 0.000-0.010 Normal (applies to non-numeric results) [facility] ([facility]) <content>note:<nlbl:demographic_changed> </content>
<content></content> Salicylates [Mass/volume] in Serum or Plasma 5.4 mg/dL 5.0 -30.0 Normal (applies to non-numeric results) [facility] ([facility]) <content>note:<nlbl:demographic_changed> </content>
<content></content> Acetaminophen [Mass/volume] in Serum or Plasma Laboratory test r esult 10.0-30.0 Below low normal [facility] ([facility]) <content>note:<nlbl:demographic_changed> </content>
<content></content> Thyrotropin [Units/volume] in Serum or Plasma 0.283 uIU/ML 0. 358-3.740 Below low normal [facility] ([facility]) <content>note:<nlbl:demographic_changed> </content>
<content></content> Choriogonadotropin.beta subunit ( test) [Pres ence] in Serum or Plasma Laboratory test result Normal (applies to non-numeric results) [facility] ([facility]) <content>note:<nlbl:demographic_changed> </content>
<content></content> ID Date Data Source [id number] 03/12/2021 02:29:00 PM EDT [facility] ([facility]) Name Value Range Interpretation Code Description Data Kayleen rce(s) Supporting Document(s) Blood Urea Nitrogen 18 mg/dL 7-18 Normal (applies to non-nume javier results) [facility] ([facility]) Glucose, Fasting 96 mg/dL 70-100 Normal (applies to non-numeric results) [facility] ([facility]) Glomerular Filtration Rate Laboratory test result Normal (applies to non- numeric results) [facility] ([facility]) <content>Units are mL/min/1.73 m2</content>
<content></content>
<content>Chronic Kidney Disease Staging per NKF:</content>
<content></content>
<content>Stage I & II GFR >=60 Normal to Mildly Decreased</content>
<content>Stage III GFR 30- 59 Moderately Decreased</content>
<content>Stage IV GFR 15-29 Severely Decreased</content>
<content>Stage V GFR <15 Very Little GFR Left</content>
<content>ESRD GFR <15 on FACILITIES FLIGHT CHECK PILOT</content>
<content></content> Creatinine For GFR 1.05 mg/dL 0.55-1.30 Normal (applies to non -numeric results) [facility] ([facility]) Potassium Serum 3.8 meq/L 3.5-5.1 Normal (applies to non-numeric results) [facility] ([facility]) Sodium Level 141 meq/L 136-145 Normal (applies to non-numeric res ults) [facility] ([facility]) Chloride Level 107 meq/L 98-107 Normal (applies to non-numeric r esults) [facility] ([facility]) Carbon Dioxide Level 26 meq/L 21-32 Normal (applies to non-num davida results) [facility] ([facility]) Anion Gap 8 meq/L 8-16 Normal (applies to non-numeric resul ts) [facility] ([facility]) Calcium Level 10.2 mg/dL 8.5-10.1 Above high normal [facility] ([facility]) ID Date Data Source [id number] 03/12/2021 02:29:00 PM EDT [facility] ([facility]) Name Value Range Interpretation Code Description Data Kayleen rce(s) Supporting Document(s) Alt/SGPT 23 U/L 12-78 Normal (applies to non-numeric resul ts) [facility] ([facility]) Ast/Sgot 19 U/L 7-37 Normal (applies to non-numeric resul ts) [facility] ([facility]) Bilirubin,Total 0.7 mg/dL 0.2-1.0 Normal (applies to non-numeric results) [facility] ([facility]) Alkaline Phosphatase 83 U/L 45-117 Normal (applies to non-num davida results) [facility] ([facility]) Bilirubin,Direct 0.2 mg/dL 0.0-0.2 Normal (applies to non-numeric results) [facility] ([facility]) Albumin/Globulin Ratio 1.2 1.2-2.2 Normal (applies to non-n umeric results) [facility] ([facility]) Albumin 4.4 GM/DL 3.2-5.2 Normal (applies to non-numeric resul ts) [facility] ([facility]) Total Protein 8.1 GM/DL 6.4-8.2 Normal (applies to non-numeric re sults) [facility] ([facility]) ID Date Data Source [id number] 03/12/2021 02:29:00 PM EDT [facility] ([facility]) Name Value Range Interpretation Code Description Data Kayleen rce(s) Supporting Document(s) [place] [Mass/volume] in Serum or Plasma 0.34 meq/L 0.60-1.20 Below low normal [facility] ([facility]) <content>note:<nlbl:demographic_changed> </content>
<content></content> ID Date Data Source [id number] 03/12/2021 02:29:00 PM EDT [facility] ([facility]) Name Value Range Interpretation Code Description Data Kayleen rce(s) Supporting Document(s) Influenza A Amplification Laboratory test result Normal (applies to non- numeric results) [facility] ([facility]) Negative results do not preclude influen za or RSV virus infection and should not be used as the sole basis for treatment or other patient management decisions. Influenza B Amplification Laboratory test result Normal (applies to non- numeric results) [facility] ([facility]) Negative results do not preclude influen za or RSV virus infection and should not be used as the sole basis for treatment or other patient management decisions. RSV Amplification Laboratory test result Normal (applies to non-numeric results) [facility] ([facility]) Negative results do not preclude influen za or RSV virus infection and should not be used as the sole basis for treatment or other patient management decisions. Laboratory test finding (navigational concept) Laboratory test r esult Normal (applies to non-numeric results) [facility] ([facility]) A false negative result may occur if [...] pathogens. DISCLAIMER: Testing was performed using the [employer] SARS-CoV-2 test. This test was developed and its performance characteristics determined by [employer]. This test has not been FDA cleared [...] or revoked sooner. ID Date Data Source [id number] 03/12/2021 01:36:00 PM EDT [facility] ([facility]) Name Value Range Interpretation Code Description Data Kayleen rce(s) Supporting Document(s) Barbiturates Urine Laboratory test result Normal (applies to non-numeric results) [facility] ([facility]) Amphetamines Level Urine Laboratory test result Normal (applies to non-numeric results) [facility] ([facility]) Benzodiazepines Urine Laboratory test result Nor mal (applies to non-numeric results) [facility] ([facility]) Cannabinoids Urine Laboratory test result Above high cristine l [facility] ([facility]) Cocaine Metabolite Urine Laboratory test result Above high normal [facility] ([facility]) Methadone Urine Laboratory test result Normal (a pplies to non-numeric results) [facility] ([facility]) Opiates Urine Laboratory test result Normal (applies t o non-numeric results) [facility] ([facility]) Phencyclidine Urine Laboratory test result Cristine l (applies to non-numeric results) [facility] ([facility]) ALL PRESUMPTIVE POSITIVE FINDINGS AR E UNCONFIRMED [...] CALL THE LAB. ID Date Data Source [id number] 02/26/2021 01:24:00 PM EDT [facility] ([facility]) Name Value Range Interpretation Code Description Data Kayleen rce(s) Supporting Document(s) Cobalamin (Vitamin B12) [Mass/volume] in Serum or Plasma 353 pg/mL 2 32-1245 [facility] ([facility]) .~.~<DG1.3.1>D51.9</DG1.3.1><DG1.3.1>D51.9</DG1.3.1><DG1.3.1>E55.9</DG1.3.1><DG1 .3.1 Is patient fasting? N~.~.~<DG1.3.1>D51.9</DG1.3.1><DG1.3.1>D51.9</DG1.3.1><DG1.3.1>E55.9</DG1.3. .~.~<DG1.3.1> D51.9</DG1.3.1><DG1.3.1>D51.9</DG1.3.1><DG1.3.1>E55.9</DG1.3.1><DG1.3.1 .~.~<DG1.3.1>D51.9</DG1.3.1><DG1.3.1>D51.9</DG1.3.1><DG1.3.1>E55.9</DG1.3.1><DG1 .3.1 .~.~<DG1.3.1>D51.9</DG1.3.1><DG1.3.1> D51.9</DG1.3.1><DG1.3.1>E55.9</DG1.3.1><DG1.3.1 ID Date Data Source [id number] 02/26/2021 01:24:00 PM EDT [facility] ([facility]) Name Value Range Interpretation Code Description Data Kayleen rce(s) Supporting Document(s) CBC W/Automated Diff Laboratory test result [facility] ([facility]) COMPLETE BLOOD COUNT WBC 12.6 10^3/uL 4.2-11.0 Above high normal [facility] ([facility]) .~.~<DG1.3.1>D51.9</DG1.3.1><DG1.3.1>D51.9</DG1.3.1><DG1.3.1>E55.9</DG1.3.1><DG1 .3.1 Is patient fasting? N~.~.~<DG1.3.1>D51.9</DG1.3.1><DG1.3.1>D51.9</DG1.3.1><DG1.3.1>E55.9</DG1.3. .~.~<DG1.3.1> D51.9</DG1.3.1><DG1.3.1>D51.9</DG1.3.1><DG1.3.1>E55.9</DG1.3.1><DG1.3.1 .~.~<DG1.3.1>D51.9</DG1.3.1><DG1.3.1>D51.9</DG1.3.1><DG1.3.1>E55.9</DG1.3.1><DG1 .3.1 .~.~<DG1.3.1>D51.9</DG1.3.1><DG1.3.1> D51.9</DG1.3.1><DG1.3.1>E55.9</DG1.3.1><DG1.3.1 RBC 4.44 10^6/uL 4.20-5.40 [facility] ([facility]) .~.~<DG1.3.1>D51.9</DG1.3.1><DG1.3.1>D51.9</DG1.3.1><DG1.3.1>E55.9</DG1.3.1><DG1 .3.1 Is patient fasting? N~.~.~<DG1.3.1>D51.9</DG1.3.1><DG1.3.1>D51.9</DG1.3.1><DG1.3.1>E55.9</DG1.3. .~.~<DG1.3.1> D51.9</DG1.3.1><DG1.3.1>D51.9</DG1.3.1><DG1.3.1>E55.9</DG1.3.1><DG1.3.1 .~.~<DG1.3.1>D51.9</DG1.3.1><DG1.3.1>D51.9</DG1.3.1><DG1.3.1>E55.9</DG1.3.1><DG1 .3.1 .~.~<DG1.3.1>D51.9</DG1.3.1><DG1.3.1> D51.9</DG1.3.1><DG1.3.1>E55.9</DG1.3.1><DG1.3.1 Hemoglobin 14.0 g/dL 12.0-16.0 [facility]) .~.~<DG1.3.1>D51.9</DG1.3.1><DG1.3.1>D51.9</DG1.3.1><DG1.3.1>E55.9</DG1.3.1><DG1 .3.1 Is patient fasting? N~.~.~<DG1.3.1>D51.9</DG1.3.1><DG1.3.1>D51.9</DG1.3.1><DG1.3.1>E55.9</DG1.3. .~.~<DG1.3.1> D51.9</DG1.3.1><DG1.3.1>D51.9</DG1.3.1><DG1.3.1>E55.9</DG1.3.1><DG1.3.1 .~.~<DG1.3.1>D51.9</DG1.3.1><DG1.3.1>D51.9</DG1.3.1><DG1.3.1>E55.9</DG1.3.1><DG1 .3.1 .~.~<DG1.3.1>D51.9</DG1.3.1><DG1.3.1> D51.9</DG1.3.1><DG1.3.1>E55.9</DG1.3.1><DG1.3.1 Hematocrit 41.6 % 37.0-47.0 [facility] ([facility]) .~.~<DG1.3.1>D51.9</DG1.3.1><DG1.3.1>D51.9</DG1.3.1><DG1.3.1>E55.9</DG1.3.1><DG1 .3.1 Is patient fasting? N~.~.~<DG1.3.1>D51.9</DG1.3.1><DG1.3.1>D51.9</DG1.3.1><DG1.3.1>E55.9</DG1.3. .~.~<DG1.3.1> D51.9</DG1.3.1><DG1.3.1>D51.9</DG1.3.1><DG1.3.1>E55.9</DG1.3.1><DG1.3.1 .~.~<DG1.3.1>D51.9</DG1.3.1><DG1.3.1>D51.9</DG1.3.1><DG1.3.1>E55.9</DG1.3.1><DG1 .3.1 .~.~<DG1.3.1>D51.9</DG1.3.1><DG1.3.1> D51.9</DG1.3.1><DG1.3.1>E55.9</DG1.3.1><DG1.3.1 MCV 93.7 fL 81.0-101 [facility] ([facility]) .~.~<DG1.3.1>D51.9</DG1.3.1><DG1.3.1>D51.9</DG1.3.1><DG1.3.1>E55.9</DG1.3.1><DG1 .3.1 Is patient fasting? N~.~.~<DG1.3.1>D51.9</DG1.3.1><DG1.3.1>D51.9</DG1.3.1><DG1.3.1>E55.9</DG1.3. .~.~<DG1.3.1> D51.9</DG1.3.1><DG1.3.1>D51.9</DG1.3.1><DG1.3.1>E55.9</DG1.3.1><DG1.3.1 .~.~<DG1.3.1>D51.9</DG1.3.1><DG1.3.1>D51.9</DG1.3.1><DG1.3.1>E55.9</DG1.3.1><DG1 .3.1 .~.~<DG1.3.1>D51.9</DG1.3.1><DG1.3.1> D51.9</DG1.3.1><DG1.3.1>E55.9</DG1.3.1><DG1.3.1 MCH 31.5 pg 27.0-34.0 [facility] ([facility]) .~.~<DG1.3.1>D51.9</DG1.3.1><DG1.3.1>D51.9</DG1.3.1><DG1.3.1>E55.9</DG1.3.1><DG1 .3.1 Is patient fasting? N~.~.~<DG1.3.1>D51.9</DG1.3.1><DG1.3.1>D51.9</DG1.3.1><DG1.3.1>E55.9</DG1.3. .~.~<DG1.3.1> D51.9</DG1.3.1><DG1.3.1>D51.9</DG1.3.1><DG1.3.1>E55.9</DG1.3.1><DG1.3.1 .~.~<DG1.3.1>D51.9</DG1.3.1><DG1.3.1>D51.9</DG1.3.1><DG1.3.1>E55.9</DG1.3.1><DG1 .3.1 .~.~<DG1.3.1>D51.9</DG1.3.1><DG1.3.1> D51.9</DG1.3.1><DG1.3.1>E55.9</DG1.3.1><DG1.3.1 MCHC 33.7 g/dL 31.0-36.0 [facility] ([facility]) .~.~<DG1.3.1>D51.9</DG1.3.1><DG1.3.1>D51.9</DG1.3.1><DG1.3.1>E55.9</DG1.3.1><DG1 .3.1 Is patient fasting? N~.~.~<DG1.3.1>D51.9</DG1.3.1><DG1.3.1>D51.9</DG1.3.1><DG1.3.1>E55.9</DG1.3. .~.~<DG1.3.1> D51.9</DG1.3.1><DG1.3.1>D51.9</DG1.3.1><DG1.3.1>E55.9</DG1.3.1><DG1.3.1 .~.~<DG1.3.1>D51.9</DG1.3.1><DG1.3.1>D51.9</DG1.3.1><DG1.3.1>E55.9</DG1.3.1><DG1 .3.1 .~.~<DG1.3.1>D51.9</DG1.3.1><DG1.3.1> D51.9</DG1.3.1><DG1.3.1>E55.9</DG1.3.1><DG1.3.1 RDW 13.9 % 11.5-14.5 [facility] ([facility]) .~.~<DG1.3.1>D51.9</DG1.3.1><DG1.3.1>D51.9</DG1.3.1><DG1.3.1>E55.9</DG1.3.1><DG1 .3.1 Is patient fasting? N~.~.~<DG1.3.1>D51.9</DG1.3.1><DG1.3.1>D51.9</DG1.3.1><DG1.3.1>E55.9</DG1.3. .~.~<DG1.3.1> D51.9</DG1.3.1><DG1.3.1>D51.9</DG1.3.1><DG1.3.1>E55.9</DG1.3.1><DG1.3.1 .~.~<DG1.3.1>D51.9</DG1.3.1><DG1.3.1>D51.9</DG1.3.1><DG1.3.1>E55.9</DG1.3.1><DG1 .3.1 .~.~<DG1.3.1>D51.9</DG1.3.1><DG1.3.1> D51.9</DG1.3.1><DG1.3.1>E55.9</DG1.3.1><DG1.3.1 Platelets 210 10^3/uL 150-450 [facility] ([facility]) .~.~<DG1.3.1>D51.9</DG1.3.1><DG1.3.1>D51.9</DG1.3.1><DG1.3.1>E55.9</DG1.3.1><DG1 .3.1 Is patient fasting? N~.~.~<DG1.3.1>D51.9</DG1.3.1><DG1.3.1>D51.9</DG1.3.1><DG1.3.1>E55.9</DG1.3. .~.~<DG1.3.1> D51.9</DG1.3.1><DG1.3.1>D51.9</DG1.3.1><DG1.3.1>E55.9</DG1.3.1><DG1.3.1 .~.~<DG1.3.1>D51.9</DG1.3.1><DG1.3.1>D51.9</DG1.3.1><DG1.3.1>E55.9</DG1.3.1><DG1 .3.1 .~.~<DG1.3.1>D51.9</DG1.3.1><DG1.3.1> D51.9</DG1.3.1><DG1.3.1>E55.9</DG1.3.1><DG1.3.1 MPV 9.1 fL 7.4-10.4 [facility] ([facility]) .~.~<DG1.3.1>D51.9</DG1.3.1><DG1.3.1>D51.9</DG1.3.1><DG1.3.1>E55.9</DG1.3.1><DG1 .3.1 Is patient fasting? N~.~.~<DG1.3.1>D51.9</DG1.3.1><DG1.3.1>D51.9</DG1.3.1><DG1.3.1>E55.9</DG1.3. .~.~<DG1.3.1> D51.9</DG1.3.1><DG1.3.1>D51.9</DG1.3.1><DG1.3.1>E55.9</DG1.3.1><DG1.3.1 .~.~<DG1.3.1>D51.9</DG1.3.1><DG1.3.1>D51.9</DG1.3.1><DG1.3.1>E55.9</DG1.3.1><DG1 .3.1 .~.~<DG1.3.1>D51.9</DG1.3.1><DG1.3.1> D51.9</DG1.3.1><DG1.3.1>E55.9</DG1.3.1><DG1.3.1 Lymph 24.8 % 25.0-40.0 Below low normal [facility] ( [facility]) .~.~<DG1.3.1>D51.9</DG1.3.1><DG1.3.1>D51.9</DG1.3.1><DG1.3.1>E55.9</DG1.3.1><DG1 .3.1 Is patient fasting? N~.~.~<DG1.3.1>D51.9</DG1.3.1><DG1.3.1>D51.9</DG1.3.1><DG1.3.1>E55.9</DG1.3. .~.~<DG1.3.1> D51.9</DG1.3.1><DG1.3.1>D51.9</DG1.3.1><DG1.3.1>E55.9</DG1.3.1><DG1.3.1 .~.~<DG1.3.1>D51.9</DG1.3.1><DG1.3.1>D51.9</DG1.3.1><DG1.3.1>E55.9</DG1.3.1><DG1 .3.1 .~.~<DG1.3.1>D51.9</DG1.3.1><DG1.3.1> D51.9</DG1.3.1><DG1.3.1>E55.9</DG1.3.1><DG1.3.1 Neut 66.7 % 37.0-80.0 [facility] ([facility]) .~.~<DG1.3.1>D51.9</DG1.3.1><DG1.3.1>D51.9</DG1.3.1><DG1.3.1>E55.9</DG1.3.1><DG1 .3.1 Is patient fasting? N~.~.~<DG1.3.1>D51.9</DG1.3.1><DG1.3.1>D51.9</DG1.3.1><DG1.3.1>E55.9</DG1.3. .~.~<DG1.3.1> D51.9</DG1.3.1><DG1.3.1>D51.9</DG1.3.1><DG1.3.1>E55.9</DG1.3.1><DG1.3.1 .~.~<DG1.3.1>D51.9</DG1.3.1><DG1.3.1>D51.9</DG1.3.1><DG1.3.1>E55.9</DG1.3.1><DG1 .3.1 .~.~<DG1.3.1>D51.9</DG1.3.1><DG1.3.1> D51.9</DG1.3.1><DG1.3.1>E55.9</DG1.3.1><DG1.3.1 Buchanan 6.6 % 3.0-8.0 [facility] ([facility]) .~.~<DG1.3.1>D51.9</DG1.3.1><DG1.3.1>D51.9</DG1.3.1><DG1.3.1>E55.9</DG1.3.1><DG1 .3.1 Is patient fasting? N~.~.~<DG1.3.1>D51.9</DG1.3.1><DG1.3.1>D51.9</DG1.3.1><DG1.3.1>E55.9</DG1.3. .~.~<DG1.3.1> D51.9</DG1.3.1><DG1.3.1>D51.9</DG1.3.1><DG1.3.1>E55.9</DG1.3.1><DG1.3.1 .~.~<DG1.3.1>D51.9</DG1.3.1><DG1.3.1>D51.9</DG1.3.1><DG1.3.1>E55.9</DG1.3.1><DG1 .3.1 .~.~<DG1.3.1>D51.9</DG1.3.1><DG1.3.1> D51.9</DG1.3.1><DG1.3.1>E55.9</DG1.3.1><DG1.3.1 Eos 1.4 % 0.0-7.0 [facility] ([facility]) .~.~<DG1.3.1>D51.9</DG1.3.1><DG1.3.1>D51.9</DG1.3.1><DG1.3.1>E55.9</DG1.3.1><DG1 .3.1 Is patient fasting? N~.~.~<DG1.3.1>D51.9</DG1.3.1><DG1.3.1>D51.9</DG1.3.1><DG1.3.1>E55.9</DG1.3. .~.~<DG1.3.1> D51.9</DG1.3.1><DG1.3.1>D51.9</DG1.3.1><DG1.3.1>E55.9</DG1.3.1><DG1.3.1 .~.~<DG1.3.1>D51.9</DG1.3.1><DG1.3.1>D51.9</DG1.3.1><DG1.3.1>E55.9</DG1.3.1><DG1 .3.1 .~.~<DG1.3.1>D51.9</DG1.3.1><DG1.3.1> D51.9</DG1.3.1><DG1.3.1>E55.9</DG1.3.1><DG1.3.1 Baso 0.2 % 0.0-2.5 [facility] ([facility]) .~.~<DG1.3.1>D51.9</DG1.3.1><DG1.3.1>D51.9</DG1.3.1><DG1.3.1>E55.9</DG1.3.1><DG1 .3.1 Is patient fasting? N~.~.~<DG1.3.1>D51.9</DG1.3.1><DG1.3.1>D51.9</DG1.3.1><DG1.3.1>E55.9</DG1.3. .~.~<DG1.3.1> D51.9</DG1.3.1><DG1.3.1>D51.9</DG1.3.1><DG1.3.1>E55.9</DG1.3.1><DG1.3.1 .~.~<DG1.3.1>D51.9</DG1.3.1><DG1.3.1>D51.9</DG1.3.1><DG1.3.1>E55.9</DG1.3.1><DG1 .3.1 .~.~<DG1.3.1>D51.9</DG1.3.1><DG1.3.1> D51.9</DG1.3.1><DG1.3.1>E55.9</DG1.3.1><DG1.3.1 %Ig 0.3 % 0.0-0.0 Above high normal [facility] ([facility]) .~.~<DG1.3.1>D51.9</DG1.3.1><DG1.3.1>D51.9</DG1.3.1><DG1.3.1>E55.9</DG1.3.1><DG1 .3.1 Is patient fasting? N~.~.~<DG1.3.1>D51.9</DG1.3.1><DG1.3.1>D51.9</DG1.3.1><DG1.3.1>E55.9</DG1.3. .~.~<DG1.3.1> D51.9</DG1.3.1><DG1.3.1>D51.9</DG1.3.1><DG1.3.1>E55.9</DG1.3.1><DG1.3.1 .~.~<DG1.3.1>D51.9</DG1.3.1><DG1.3.1>D51.9</DG1.3.1><DG1.3.1>E55.9</DG1.3.1><DG1 .3.1 .~.~<DG1.3.1>D51.9</DG1.3.1><DG1.3.1> D51.9</DG1.3.1><DG1.3.1>E55.9</DG1.3.1><DG1.3.1 %NRBC 0.0 % 0.0-0.0 [facility] ([facility]) .~.~<DG1.3.1>D51.9</DG1.3.1><DG1.3.1>D51.9</DG1.3.1><DG1.3.1>E55.9</DG1.3.1><DG1 .3.1 Is patient fasting? N~.~.~<DG1.3.1>D51.9</DG1.3.1><DG1.3.1>D51.9</DG1.3.1><DG1.3.1>E55.9</DG1.3. .~.~<DG1.3.1> D51.9</DG1.3.1><DG1.3.1>D51.9</DG1.3.1><DG1.3.1>E55.9</DG1.3.1><DG1.3.1 .~.~<DG1.3.1>D51.9</DG1.3.1><DG1.3.1>D51.9</DG1.3.1><DG1.3.1>E55.9</DG1.3.1><DG1 .3.1 .~.~<DG1.3.1>D51.9</DG1.3.1><DG1.3.1> D51.9</DG1.3.1><DG1.3.1>E55.9</DG1.3.1><DG1.3.1 #Neut 8.36 10^3/uL 2.00-6.90 Above high normal [facility] ([facility]) .~.~<DG1.3.1>D51.9</DG1.3.1><DG1.3.1>D51.9</DG1.3.1><DG1.3.1>E55.9</DG1.3.1><DG1 .3.1 Is patient fasting? N~.~.~<DG1.3.1>D51.9</DG1.3.1><DG1.3.1>D51.9</DG1.3.1><DG1.3.1>E55.9</DG1.3. .~.~<DG1.3.1> D51.9</DG1.3.1><DG1.3.1>D51.9</DG1.3.1><DG1.3.1>E55.9</DG1.3.1><DG1.3.1 .~.~<DG1.3.1>D51.9</DG1.3.1><DG1.3.1>D51.9</DG1.3.1><DG1.3.1>E55.9</DG1.3.1><DG1 .3.1 .~.~<DG1.3.1>D51.9</DG1.3.1><DG1.3.1> D51.9</DG1.3.1><DG1.3.1>E55.9</DG1.3.1><DG1.3.1 #Lymph 3.12 10^3/uL 0.60-3.40 [facility] ([facility]) .~.~<DG1.3.1>D51.9</DG1.3.1><DG1.3.1>D51.9</DG1.3.1><DG1.3.1>E55.9</DG1.3.1><DG1 .3.1 Is patient fasting? N~.~.~<DG1.3.1>D51.9</DG1.3.1><DG1.3.1>D51.9</DG1.3.1><DG1.3.1>E55.9</DG1.3. .~.~<DG1.3.1> D51.9</DG1.3.1><DG1.3.1>D51.9</DG1.3.1><DG1.3.1>E55.9</DG1.3.1><DG1.3.1 .~.~<DG1.3.1>D51.9</DG1.3.1><DG1.3.1>D51.9</DG1.3.1><DG1.3.1>E55.9</DG1.3.1><DG1 .3.1 .~.~<DG1.3.1>D51.9</DG1.3.1><DG1.3.1> D51.9</DG1.3.1><DG1.3.1>E55.9</DG1.3.1><DG1.3.1 #Eos 0.18 10^3/uL 0.00-0.70 [facility] ([facility]) .~.~<DG1.3.1>D51.9</DG1.3.1><DG1.3.1>D51.9</DG1.3.1><DG1.3.1>E55.9</DG1.3.1><DG1 .3.1 Is patient fasting? N~.~.~<DG1.3.1>D51.9</DG1.3.1><DG1.3.1>D51.9</DG1.3.1><DG1.3.1>E55.9</DG1.3. .~.~<DG1.3.1> D51.9</DG1.3.1><DG1.3.1>D51.9</DG1.3.1><DG1.3.1>E55.9</DG1.3.1><DG1.3.1 .~.~<DG1.3.1>D51.9</DG1.3.1><DG1.3.1>D51.9</DG1.3.1><DG1.3.1>E55.9</DG1.3.1><DG1 .3.1 .~.~<DG1.3.1>D51.9</DG1.3.1><DG1.3.1> D51.9</DG1.3.1><DG1.3.1>E55.9</DG1.3.1><DG1.3.1 #Buchanan 0.83 10^3/uL 0.00-0.90 [facility] ([facility]) .~.~<DG1.3.1>D51.9</DG1.3.1><DG1.3.1>D51.9</DG1.3.1><DG1.3.1>E55.9</DG1.3.1><DG1 .3.1 Is patient fasting? N~.~.~<DG1.3.1>D51.9</DG1.3.1><DG1.3.1>D51.9</DG1.3.1><DG1.3.1>E55.9</DG1.3. .~.~<DG1.3.1> D51.9</DG1.3.1><DG1.3.1>D51.9</DG1.3.1><DG1.3.1>E55.9</DG1.3.1><DG1.3.1 .~.~<DG1.3.1>D51.9</DG1.3.1><DG1.3.1>D51.9</DG1.3.1><DG1.3.1>E55.9</DG1.3.1><DG1 .3.1 .~.~<DG1.3.1>D51.9</DG1.3.1><DG1.3.1> D51.9</DG1.3.1><DG1.3.1>E55.9</DG1.3.1><DG1.3.1 #Baso 0.03 10^3/uL 0.00-0.20 [facility] ([facility]) .~.~<DG1.3.1>D51.9</DG1.3.1><DG1.3.1>D51.9</DG1.3.1><DG1.3.1>E55.9</DG1.3.1><DG1 .3.1 Is patient fasting? N~.~.~<DG1.3.1>D51.9</DG1.3.1><DG1.3.1>D51.9</DG1.3.1><DG1.3.1>E55.9</DG1.3. .~.~<DG1.3.1> D51.9</DG1.3.1><DG1.3.1>D51.9</DG1.3.1><DG1.3.1>E55.9</DG1.3.1><DG1.3.1 .~.~<DG1.3.1>D51.9</DG1.3.1><DG1.3.1>D51.9</DG1.3.1><DG1.3.1>E55.9</DG1.3.1><DG1 .3.1 .~.~<DG1.3.1>D51.9</DG1.3.1><DG1.3.1> D51.9</DG1.3.1><DG1.3.1>E55.9</DG1.3.1><DG1.3.1 #Ig 0.04 10^3/uL 0.00-0.10 [facility] ([facility]) .~.~<DG1.3.1>D51.9</DG1.3.1><DG1.3.1>D51.9</DG1.3.1><DG1.3.1>E55.9</DG1.3.1><DG1 .3.1 Is patient fasting? N~.~.~<DG1.3.1>D51.9</DG1.3.1><DG1.3.1>D51.9</DG1.3.1><DG1.3.1>E55.9</DG1.3. .~.~<DG1.3.1> D51.9</DG1.3.1><DG1.3.1>D51.9</DG1.3.1><DG1.3.1>E55.9</DG1.3.1><DG1.3.1 .~.~<DG1.3.1>D51.9</DG1.3.1><DG1.3.1>D51.9</DG1.3.1><DG1.3.1>E55.9</DG1.3.1><DG1 .3.1 .~.~<DG1.3.1>D51.9</DG1.3.1><DG1.3.1> D51.9</DG1.3.1><DG1.3.1>E55.9</DG1.3.1><DG1.3.1 #NRBC 0.00 10^3/uL 0.00-0.00 [facility] ([facility]) .~.~<DG1.3.1>D51.9</DG1.3.1><DG1.3.1>D51.9</DG1.3.1><DG1.3.1>E55.9</DG1.3.1><DG1 .3.1 Is patient fasting? N~.~.~<DG1.3.1>D51.9</DG1.3.1><DG1.3.1>D51.9</DG1.3.1><DG1.3.1>E55.9</DG1.3. .~.~<DG1.3.1> D51.9</DG1.3.1><DG1.3.1>D51.9</DG1.3.1><DG1.3.1>E55.9</DG1.3.1><DG1.3.1 .~.~<DG1.3.1>D51.9</DG1.3.1><DG1.3.1>D51.9</DG1.3.1><DG1.3.1>E55.9</DG1.3.1><DG1 .3.1 .~.~<DG1.3.1>D51.9</DG1.3.1><DG1.3.1> D51.9</DG1.3.1><DG1.3.1>E55.9</DG1.3.1><DG1.3.1 Manual Diff Laboratory test result Ken [facility] ([facility]) .~.~<DG1.3.1>D51.9</DG1.3.1><DG1.3.1>D51.9</DG1.3.1><DG1.3.1>E55.9</DG1.3.1><DG1 .3.1 Is patient fasting? N~.~.~<DG1.3.1>D51.9</DG1.3.1><DG1.3.1>D51.9</DG1.3.1><DG1.3.1>E55.9</DG1.3. .~.~<DG1.3.1> D51.9</DG1.3.1><DG1.3.1>D51.9</DG1.3.1><DG1.3.1>E55.9</DG1.3.1><DG1.3.1 .~.~<DG1.3.1>D51.9</DG1.3.1><DG1.3.1>D51.9</DG1.3.1><DG1.3.1>E55.9</DG1.3.1><DG1 .3.1 .~.~<DG1.3.1>D51.9</DG1.3.1><DG1.3.1> D51.9</DG1.3.1><DG1.3.1>E55.9</DG1.3.1><DG1.3.1 RBC Morph Laboratory test result [facility] ([facility]) .~.~<DG1.3.1>D51.9</DG1.3.1><DG1.3.1>D51.9</DG1.3.1><DG1.3.1>E55.9</DG1.3.1><DG1 .3.1 Is patient fasting? N~.~.~<DG1.3.1>D51.9</DG1.3.1><DG1.3.1>D51.9</DG1.3.1><DG1.3.1>E55.9</DG1.3. .~.~<DG1.3.1> D51.9</DG1.3.1><DG1.3.1>D51.9</DG1.3.1><DG1.3.1>E55.9</DG1.3.1><DG1.3.1 .~.~<DG1.3.1>D51.9</DG1.3.1><DG1.3.1>D51.9</DG1.3.1><DG1.3.1>E55.9</DG1.3.1><DG1 .3.1 .~.~<DG1.3.1>D51.9</DG1.3.1><DG1.3.1> D51.9</DG1.3.1><DG1.3.1>E55.9</DG1.3.1><DG1.3.1 ID Date Data Source [id number] 02/26/2021 01:24:00 PM EDT [facility] ([facility]) Name Value Range Interpretation Code Description Data Kayleen rce(s) Supporting Document(s) Calcidiol [Mass/volume] in Serum or Plasma 23 ng/mL [facility] ([facility]) <content>VITAMIN-D(25HYDROXY)</content>< br/><content>Deficiency: <=20 ng/ml</content>
<content>Insufficiency: 21-29 ng/ml</content>
<content>Preferred level: => 30 ng/ml</content>
<conten t></content> ID Date Data Source [id number] 02/26/2021 01:24:00 PM EDT [facility] ([facility]) Name Value Range Interpretation Code Description Data Kayleen rce(s) Supporting Document(s) Iron 45 ug/dL 42-135 [facility] ([facility]) .~.~<DG1.3.1>D51.9</DG1.3.1><DG1.3.1>D51.9</DG1.3.1><DG1.3.1>E55.9</DG1.3.1><DG1 .3.1 Is patient fasting? N~.~.~<DG1.3.1>D51.9</DG1.3.1><DG1.3.1>D51.9</DG1.3.1><DG1.3.1>E55.9</DG1.3. .~.~<DG1.3.1> D51.9</DG1.3.1><DG1.3.1>D51.9</DG1.3.1><DG1.3.1>E55.9</DG1.3.1><DG1.3.1 .~.~<DG1.3.1>D51.9</DG1.3.1><DG1.3.1>D51.9</DG1.3.1><DG1.3.1>E55.9</DG1.3.1><DG1 .3.1 .~.~<DG1.3.1>D51.9</DG1.3.1><DG1.3.1> D51.9</DG1.3.1><DG1.3.1>E55.9</DG1.3.1><DG1.3.1 Uibc 215 ug/dL 112-347 [facility] ([facility]) .~.~<DG1.3.1>D51.9</DG1.3.1><DG1.3.1>D51.9</DG1.3.1><DG1.3.1>E55.9</DG1.3.1><DG1 .3.1 Is patient fasting? N~.~.~<DG1.3.1>D51.9</DG1.3.1><DG1.3.1>D51.9</DG1.3.1><DG1.3.1>E55.9</DG1.3. .~.~<DG1.3.1> D51.9</DG1.3.1><DG1.3.1>D51.9</DG1.3.1><DG1.3.1>E55.9</DG1.3.1><DG1.3.1 .~.~<DG1.3.1>D51.9</DG1.3.1><DG1.3.1>D51.9</DG1.3.1><DG1.3.1>E55.9</DG1.3.1><DG1 .3.1 .~.~<DG1.3.1>D51.9</DG1.3.1><DG1.3.1> D51.9</DG1.3.1><DG1.3.1>E55.9</DG1.3.1><DG1.3.1 Iron Sat 17 % [facility] ([facility]) .~.~<DG1.3.1>D51.9</DG1.3.1><DG1.3.1>D51.9</DG1.3.1><DG1.3.1>E55.9</DG1.3.1><DG1 .3.1 Is patient fasting? N~.~.~<DG1.3.1>D51.9</DG1.3.1><DG1.3.1>D51.9</DG1.3.1><DG1.3.1>E55.9</DG1.3. .~.~<DG1.3.1> D51.9</DG1.3.1><DG1.3.1>D51.9</DG1.3.1><DG1.3.1>E55.9</DG1.3.1><DG1.3.1 .~.~<DG1.3.1>D51.9</DG1.3.1><DG1.3.1>D51.9</DG1.3.1><DG1.3.1>E55.9</DG1.3.1><DG1 .3.1 .~.~<DG1.3.1>D51.9</DG1.3.1><DG1.3.1> D51.9</DG1.3.1><DG1.3.1>E55.9</DG1.3.1><DG1.3.1 Tibc 260 ug/dL 250-450 [facility] ([facility]) .~.~<DG1.3.1>D51.9</DG1.3.1><DG1.3.1>D51.9</DG1.3.1><DG1.3.1>E55.9</DG1.3.1><DG1 .3.1 Is patient fasting? N~.~.~<DG1.3.1>D51.9</DG1.3.1><DG1.3.1>D51.9</DG1.3.1><DG1.3.1>E55.9</DG1.3. .~.~<DG1.3.1> D51.9</DG1.3.1><DG1.3.1>D51.9</DG1.3.1><DG1.3.1>E55.9</DG1.3.1><DG1.3.1 .~.~<DG1.3.1>D51.9</DG1.3.1><DG1.3.1>D51.9</DG1.3.1><DG1.3.1>E55.9</DG1.3.1><DG1 .3.1 .~.~<DG1.3.1>D51.9</DG1.3.1><DG1.3.1> D51.9</DG1.3.1><DG1.3.1>E55.9</DG1.3.1><DG1.3.1 ID Date Data Source [id number] 02/26/2021 01:24:00 PM EDT [facility] ([facility]) Name Value Range Interpretation Code Description Data Kayleen rce(s) Supporting Document(s) Ferritin [Mass/volume] in Serum or Plasma 47.6 ng/mL 3.0-105 [facility] ([facility]) .~.~<DG1.3.1>D51.9</DG1.3.1><DG1.3.1>D51.9</DG1.3.1><DG1.3.1>E55.9</DG1.3.1><DG1 .3.1 Is patient fasting? N~.~.~<DG1.3.1>D51.9</DG1.3.1><DG1.3.1>D51.9</DG1.3.1><DG1.3.1>E55.9</DG1.3. .~.~<DG1.3.1> D51.9</DG1.3.1><DG1.3.1>D51.9</DG1.3.1><DG1.3.1>E55.9</DG1.3.1><DG1.3.1 .~.~<DG1.3.1>D51.9</DG1.3.1><DG1.3.1>D51.9</DG1.3.1><DG1.3.1>E55.9</DG1.3.1><DG1 .3.1 .~.~<DG1.3.1>D51.9</DG1.3.1><DG1.3.1> D51.9</DG1.3.1><DG1.3.1>E55.9</DG1.3.1><DG1.3.1 ID Date Data Source [id number] 02/26/2021 01:24:00 PM EDT [facility] ([facility]) Name Value Range Interpretation Code Description Data Kayleen rce(s) Supporting Document(s) Comprehensive [employer] Laboratory test result [facility] ([facility]) .~.~<DG1.3.1>D51.9</DG1.3.1><DG1.3.1>D51.9</DG1.3.1><DG1.3.1>E55.9</DG1.3.1><DG1 .3.1 Is patient fasting? N~.~.~<DG1.3.1>D51.9</DG1.3.1><DG1.3.1>D51.9</DG1.3.1><DG1.3.1>E55.9</DG1.3. .~.~<DG1.3.1> D51.9</DG1.3.1><DG1.3.1>D51.9</DG1.3.1><DG1.3.1>E55.9</DG1.3.1><DG1.3.1 .~.~<DG1.3.1>D51.9</DG1.3.1><DG1.3.1>D51.9</DG1.3.1><DG1.3.1>E55.9</DG1.3.1><DG1 .3.1 .~.~<DG1.3.1>D51.9</DG1.3.1><DG1.3.1> D51.9</DG1.3.1><DG1.3.1>E55.9</DG1.3.1><DG1.3.1 Sodium 138 meq/L 134-153 [facility] ([facility]) .~.~<DG1.3.1>D51.9</DG1.3.1><DG1.3.1>D51.9</DG1.3.1><DG1.3.1>E55.9</DG1.3.1><DG1 .3.1 Is patient fasting? N~.~.~<DG1.3.1>D51.9</DG1.3.1><DG1.3.1>D51.9</DG1.3.1><DG1.3.1>E55.9</DG1.3. .~.~<DG1.3.1> D51.9</DG1.3.1><DG1.3.1>D51.9</DG1.3.1><DG1.3.1>E55.9</DG1.3.1><DG1.3.1 .~.~<DG1.3.1>D51.9</DG1.3.1><DG1.3.1>D51.9</DG1.3.1><DG1.3.1>E55.9</DG1.3.1><DG1 .3.1 .~.~<DG1.3.1>D51.9</DG1.3.1><DG1.3.1> D51.9</DG1.3.1><DG1.3.1>E55.9</DG1.3.1><DG1.3.1 Potassium 4.0 meq/L 3.6-5.0 [facility] ([facility]) .~.~<DG1.3.1>D51.9</DG1.3.1><DG1.3.1>D51.9</DG1.3.1><DG1.3.1>E55.9</DG1.3.1><DG1 .3.1 Is patient fasting? N~.~.~<DG1.3.1>D51.9</DG1.3.1><DG1.3.1>D51.9</DG1.3.1><DG1.3.1>E55.9</DG1.3. .~.~<DG1.3.1> D51.9</DG1.3.1><DG1.3.1>D51.9</DG1.3.1><DG1.3.1>E55.9</DG1.3.1><DG1.3.1 .~.~<DG1.3.1>D51.9</DG1.3.1><DG1.3.1>D51.9</DG1.3.1><DG1.3.1>E55.9</DG1.3.1><DG1 .3.1 .~.~<DG1.3.1>D51.9</DG1.3.1><DG1.3.1> D51.9</DG1.3.1><DG1.3.1>E55.9</DG1.3.1><DG1.3.1 Chloride 104 meq/L 98-107 [facility] ([facility]) .~.~<DG1.3.1>D51.9</DG1.3.1><DG1.3.1>D51.9</DG1.3.1><DG1.3.1>E55.9</DG1.3.1><DG1 .3.1 Is patient fasting? N~.~.~<DG1.3.1>D51.9</DG1.3.1><DG1.3.1>D51.9</DG1.3.1><DG1.3.1>E55.9</DG1.3. .~.~<DG1.3.1> D51.9</DG1.3.1><DG1.3.1>D51.9</DG1.3.1><DG1.3.1>E55.9</DG1.3.1><DG1.3.1 .~.~<DG1.3.1>D51.9</DG1.3.1><DG1.3.1>D51.9</DG1.3.1><DG1.3.1>E55.9</DG1.3.1><DG1 .3.1 .~.~<DG1.3.1>D51.9</DG1.3.1><DG1.3.1> D51.9</DG1.3.1><DG1.3.1>E55.9</DG1.3.1><DG1.3.1 Glucose 100 mg/dL 70-99 Above high normal [facility] ([facility]) .~.~<DG1.3.1>D51.9</DG1.3.1><DG1.3.1>D51.9</DG1.3.1><DG1.3.1>E55.9</DG1.3.1><DG1 .3.1 Is patient fasting? N~.~.~<DG1.3.1>D51.9</DG1.3.1><DG1.3.1>D51.9</DG1.3.1><DG1.3.1>E55.9</DG1.3. .~.~<DG1.3.1> D51.9</DG1.3.1><DG1.3.1>D51.9</DG1.3.1><DG1.3.1>E55.9</DG1.3.1><DG1.3.1 .~.~<DG1.3.1>D51.9</DG1.3.1><DG1.3.1>D51.9</DG1.3.1><DG1.3.1>E55.9</DG1.3.1><DG1 .3.1 .~.~<DG1.3.1>D51.9</DG1.3.1><DG1.3.1> D51.9</DG1.3.1><DG1.3.1>E55.9</DG1.3.1><DG1.3.1 Co2 23 meq/L 22-30 [facility] ([facility]) .~.~<DG1.3.1>D51.9</DG1.3.1><DG1.3.1>D51.9</DG1.3.1><DG1.3.1>E55.9</DG1.3.1><DG1 .3.1 Is patient fasting? N~.~.~<DG1.3.1>D51.9</DG1.3.1><DG1.3.1>D51.9</DG1.3.1><DG1.3.1>E55.9</DG1.3. .~.~<DG1.3.1> D51.9</DG1.3.1><DG1.3.1>D51.9</DG1.3.1><DG1.3.1>E55.9</DG1.3.1><DG1.3.1 .~.~<DG1.3.1>D51.9</DG1.3.1><DG1.3.1>D51.9</DG1.3.1><DG1.3.1>E55.9</DG1.3.1><DG1 .3.1 .~.~<DG1.3.1>D51.9</DG1.3.1><DG1.3.1> D51.9</DG1.3.1><DG1.3.1>E55.9</DG1.3.1><DG1.3.1 BUN 12 mg/dL 7-21 [facility] ([facility]) .~.~<DG1.3.1>D51.9</DG1.3.1><DG1.3.1>D51.9</DG1.3.1><DG1.3.1>E55.9</DG1.3.1><DG1 .3.1 Is patient fasting? N~.~.~<DG1.3.1>D51.9</DG1.3.1><DG1.3.1>D51.9</DG1.3.1><DG1.3.1>E55.9</DG1.3. .~.~<DG1.3.1> D51.9</DG1.3.1><DG1.3.1>D51.9</DG1.3.1><DG1.3.1>E55.9</DG1.3.1><DG1.3.1 .~.~<DG1.3.1>D51.9</DG1.3.1><DG1.3.1>D51.9</DG1.3.1><DG1.3.1>E55.9</DG1.3.1><DG1 .3.1 .~.~<DG1.3.1>D51.9</DG1.3.1><DG1.3.1> D51.9</DG1.3.1><DG1.3.1>E55.9</DG1.3.1><DG1.3.1 BUN/Creat 20 8-27 [facility] ([facility]) .~.~<DG1.3.1>D51.9</DG1.3.1><DG1.3.1>D51.9</DG1.3.1><DG1.3.1>E55.9</DG1.3.1><DG1 .3.1 Is patient fasting? N~.~.~<DG1.3.1>D51.9</DG1.3.1><DG1.3.1>D51.9</DG1.3.1><DG1.3.1>E55.9</DG1.3. .~.~<DG1.3.1> D51.9</DG1.3.1><DG1.3.1>D51.9</DG1.3.1><DG1.3.1>E55.9</DG1.3.1><DG1.3.1 .~.~<DG1.3.1>D51.9</DG1.3.1><DG1.3.1>D51.9</DG1.3.1><DG1.3.1>E55.9</DG1.3.1><DG1 .3.1 .~.~<DG1.3.1>D51.9</DG1.3.1><DG1.3.1> D51.9</DG1.3.1><DG1.3.1>E55.9</DG1.3.1><DG1.3.1 Creatinine 0.6 mg/dL 0.7-1.5 Below low normal [facility] ( [facility]) .~.~<DG1.3.1>D51.9</DG1.3.1><DG1.3.1>D51.9</DG1.3.1><DG1.3.1>E55.9</DG1.3.1><DG1 .3.1 Is patient fasting? N~.~.~<DG1.3.1>D51.9</DG1.3.1><DG1.3.1>D51.9</DG1.3.1><DG1.3.1>E55.9</DG1.3. .~.~<DG1.3.1> D51.9</DG1.3.1><DG1.3.1>D51.9</DG1.3.1><DG1.3.1>E55.9</DG1.3.1><DG1.3.1 .~.~<DG1.3.1>D51.9</DG1.3.1><DG1.3.1>D51.9</DG1.3.1><DG1.3.1>E55.9</DG1.3.1><DG1 .3.1 .~.~<DG1.3.1>D51.9</DG1.3.1><DG1.3.1> D51.9</DG1.3.1><DG1.3.1>E55.9</DG1.3.1><DG1.3.1 Total Protein 7.1 g/dL 6.3-8.2 [facility]) .~.~<DG1.3.1>D51.9</DG1.3.1><DG1.3.1>D51.9</DG1.3.1><DG1.3.1>E55.9</DG1.3.1><DG1 .3.1 Is patient fasting? N~.~.~<DG1.3.1>D51.9</DG1.3.1><DG1.3.1>D51.9</DG1.3.1><DG1.3.1>E55.9</DG1.3. .~.~<DG1.3.1> D51.9</DG1.3.1><DG1.3.1>D51.9</DG1.3.1><DG1.3.1>E55.9</DG1.3.1><DG1.3.1 .~.~<DG1.3.1>D51.9</DG1.3.1><DG1.3.1>D51.9</DG1.3.1><DG1.3.1>E55.9</DG1.3.1><DG1 .3.1 .~.~<DG1.3.1>D51.9</DG1.3.1><DG1.3.1> D51.9</DG1.3.1><DG1.3.1>E55.9</DG1.3.1><DG1.3.1 Albumin 4.8 g/dL 3.9-5.0 [facility] ([facility]) .~.~<DG1.3.1>D51.9</DG1.3.1><DG1.3.1>D51.9</DG1.3.1><DG1.3.1>E55.9</DG1.3.1><DG1 .3.1 Is patient fasting? N~.~.~<DG1.3.1>D51.9</DG1.3.1><DG1.3.1>D51.9</DG1.3.1><DG1.3.1>E55.9</DG1.3. .~.~<DG1.3.1> D51.9</DG1.3.1><DG1.3.1>D51.9</DG1.3.1><DG1.3.1>E55.9</DG1.3.1><DG1.3.1 .~.~<DG1.3.1>D51.9</DG1.3.1><DG1.3.1>D51.9</DG1.3.1><DG1.3.1>E55.9</DG1.3.1><DG1 .3.1 .~.~<DG1.3.1>D51.9</DG1.3.1><DG1.3.1> D51.9</DG1.3.1><DG1.3.1>E55.9</DG1.3.1><DG1.3.1 A/G Ratio 2.1 0.8-2.0 Above high normal [facility] ([facility]) .~.~<DG1.3.1>D51.9</DG1.3.1><DG1.3.1>D51.9</DG1.3.1><DG1.3.1>E55.9</DG1.3.1><DG1 .3.1 Is patient fasting? N~.~.~<DG1.3.1>D51.9</DG1.3.1><DG1.3.1>D51.9</DG1.3.1><DG1.3.1>E55.9</DG1.3. .~.~<DG1.3.1> D51.9</DG1.3.1><DG1.3.1>D51.9</DG1.3.1><DG1.3.1>E55.9</DG1.3.1><DG1.3.1 .~.~<DG1.3.1>D51.9</DG1.3.1><DG1.3.1>D51.9</DG1.3.1><DG1.3.1>E55.9</DG1.3.1><DG1 .3.1 .~.~<DG1.3.1>D51.9</DG1.3.1><DG1.3.1> D51.9</DG1.3.1><DG1.3.1>E55.9</DG1.3.1><DG1.3.1 Globulin 2.3 GM/DL 2.4-3.2 Below low normal [facility] ( [facility]) .~.~<DG1.3.1>D51.9</DG1.3.1><DG1.3.1>D51.9</DG1.3.1><DG1.3.1>E55.9</DG1.3.1><DG1 .3.1 Is patient fasting? N~.~.~<DG1.3.1>D51.9</DG1.3.1><DG1.3.1>D51.9</DG1.3.1><DG1.3.1>E55.9</DG1.3. .~.~<DG1.3.1> D51.9</DG1.3.1><DG1.3.1>D51.9</DG1.3.1><DG1.3.1>E55.9</DG1.3.1><DG1.3.1 .~.~<DG1.3.1>D51.9</DG1.3.1><DG1.3.1>D51.9</DG1.3.1><DG1.3.1>E55.9</DG1.3.1><DG1 .3.1 .~.~<DG1.3.1>D51.9</DG1.3.1><DG1.3.1> D51.9</DG1.3.1><DG1.3.1>E55.9</DG1.3.1><DG1.3.1 Alkaline Phos 75 U/L 38-126 [facility] ([facility]) .~.~<DG1.3.1>D51.9</DG1.3.1><DG1.3.1>D51.9</DG1.3.1><DG1.3.1>E55.9</DG1.3.1><DG1 .3.1 Is patient fasting? N~.~.~<DG1.3.1>D51.9</DG1.3.1><DG1.3.1>D51.9</DG1.3.1><DG1.3.1>E55.9</DG1.3. .~.~<DG1.3.1> D51.9</DG1.3.1><DG1.3.1>D51.9</DG1.3.1><DG1.3.1>E55.9</DG1.3.1><DG1.3.1 .~.~<DG1.3.1>D51.9</DG1.3.1><DG1.3.1>D51.9</DG1.3.1><DG1.3.1>E55.9</DG1.3.1><DG1 .3.1 .~.~<DG1.3.1>D51.9</DG1.3.1><DG1.3.1> D51.9</DG1.3.1><DG1.3.1>E55.9</DG1.3.1><DG1.3.1 Total Bili Laboratory test result 0.2-1.3 [facility] ([facility]) .~.~<DG1.3.1>D51.9</DG1.3.1><DG1.3.1>D51.9</DG1.3.1><DG1.3.1>E55.9</DG1.3.1><DG1 .3.1 Is patient fasting? N~.~.~<DG1.3.1>D51.9</DG1.3.1><DG1.3.1>D51.9</DG1.3.1><DG1.3.1>E55.9</DG1.3. .~.~<DG1.3.1> D51.9</DG1.3.1><DG1.3.1>D51.9</DG1.3.1><DG1.3.1>E55.9</DG1.3.1><DG1.3.1 .~.~<DG1.3.1>D51.9</DG1.3.1><DG1.3.1>D51.9</DG1.3.1><DG1.3.1>E55.9</DG1.3.1><DG1 .3.1 .~.~<DG1.3.1>D51.9</DG1.3.1><DG1.3.1> D51.9</DG1.3.1><DG1.3.1>E55.9</DG1.3.1><DG1.3.1 Calcium 9.6 mg/dL 8.4-10.2 [facility] ([facility]) .~.~<DG1.3.1>D51.9</DG1.3.1><DG1.3.1>D51.9</DG1.3.1><DG1.3.1>E55.9</DG1.3.1><DG1 .3.1 Is patient fasting? N~.~.~<DG1.3.1>D51.9</DG1.3.1><DG1.3.1>D51.9</DG1.3.1><DG1.3.1>E55.9</DG1.3. .~.~<DG1.3.1> D51.9</DG1.3.1><DG1.3.1>D51.9</DG1.3.1><DG1.3.1>E55.9</DG1.3.1><DG1.3.1 .~.~<DG1.3.1>D51.9</DG1.3.1><DG1.3.1>D51.9</DG1.3.1><DG1.3.1>E55.9</DG1.3.1><DG1 .3.1 .~.~<DG1.3.1>D51.9</DG1.3.1><DG1.3.1> D51.9</DG1.3.1><DG1.3.1>E55.9</DG1.3.1><DG1.3.1 SGPT/Alt 11 U/L 7-56 [facility] ([facility]) .~.~<DG1.3.1>D51.9</DG1.3.1><DG1.3.1>D51.9</DG1.3.1><DG1.3.1>E55.9</DG1.3.1><DG1 .3.1 Is patient fasting? N~.~.~<DG1.3.1>D51.9</DG1.3.1><DG1.3.1>D51.9</DG1.3.1><DG1.3.1>E55.9</DG1.3. .~.~<DG1.3.1> D51.9</DG1.3.1><DG1.3.1>D51.9</DG1.3.1><DG1.3.1>E55.9</DG1.3.1><DG1.3.1 .~.~<DG1.3.1>D51.9</DG1.3.1><DG1.3.1>D51.9</DG1.3.1><DG1.3.1>E55.9</DG1.3.1><DG1 .3.1 .~.~<DG1.3.1>D51.9</DG1.3.1><DG1.3.1> D51.9</DG1.3.1><DG1.3.1>E55.9</DG1.3.1><DG1.3.1 Sgot/Ast 13 U/L 5-40 [facility] ([facility]) .~.~<DG1.3.1>D51.9</DG1.3.1><DG1.3.1>D51.9</DG1.3.1><DG1.3.1>E55.9</DG1.3.1><DG1 .3.1 Is patient fasting? N~.~.~<DG1.3.1>D51.9</DG1.3.1><DG1.3.1>D51.9</DG1.3.1><DG1.3.1>E55.9</DG1.3. .~.~<DG1.3.1> D51.9</DG1.3.1><DG1.3.1>D51.9</DG1.3.1><DG1.3.1>E55.9</DG1.3.1><DG1.3.1 .~.~<DG1.3.1>D51.9</DG1.3.1><DG1.3.1>D51.9</DG1.3.1><DG1.3.1>E55.9</DG1.3.1><DG1 .3.1 .~.~<DG1.3.1>D51.9</DG1.3.1><DG1.3.1> D51.9</DG1.3.1><DG1.3.1>E55.9</DG1.3.1><DG1.3.1 Anion Gap 11.0 mmol/L 8.0-16.0 [facility] ([facility]) .~.~<DG1.3.1>D51.9</DG1.3.1><DG1.3.1>D51.9</DG1.3.1><DG1.3.1>E55.9</DG1.3.1><DG1 .3.1 Is patient fasting? N~.~.~<DG1.3.1>D51.9</DG1.3.1><DG1.3.1>D51.9</DG1.3.1><DG1.3.1>E55.9</DG1.3. .~.~<DG1.3.1> D51.9</DG1.3.1><DG1.3.1>D51.9</DG1.3.1><DG1.3.1>E55.9</DG1.3.1><DG1.3.1 .~.~<DG1.3.1>D51.9</DG1.3.1><DG1.3.1>D51.9</DG1.3.1><DG1.3.1>E55.9</DG1.3.1><DG1 .3.1 .~.~<DG1.3.1>D51.9</DG1.3.1><DG1.3.1> D51.9</DG1.3.1><DG1.3.1>E55.9</DG1.3.1><DG1.3.1 Age 35 yrs [facility] ([facility]) .~.~<DG1.3.1>D51.9</DG1.3.1><DG1.3.1>D51.9</DG1.3.1><DG1.3.1>E55.9</DG1.3.1><DG1 .3.1 Is patient fasting? N~.~.~<DG1.3.1>D51.9</DG1.3.1><DG1.3.1>D51.9</DG1.3.1><DG1.3.1>E55.9</DG1.3. .~.~<DG1.3.1> D51.9</DG1.3.1><DG1.3.1>D51.9</DG1.3.1><DG1.3.1>E55.9</DG1.3.1><DG1.3.1 .~.~<DG1.3.1>D51.9</DG1.3.1><DG1.3.1>D51.9</DG1.3.1><DG1.3.1>E55.9</DG1.3.1><DG1 .3.1 .~.~<DG1.3.1>D51.9</DG1.3.1><DG1.3.1> D51.9</DG1.3.1><DG1.3.1>E55.9</DG1.3.1><DG1.3.1 Afr Amer GFR Laboratory test result [facility] ([facility]) .~.~<DG1.3.1>D51.9</DG1.3.1><DG1.3.1>D51.9</DG1.3.1><DG1.3.1>E55.9</DG1.3.1><DG1 .3.1 Is patient fasting? N~.~.~<DG1.3.1>D51.9</DG1.3.1><DG1.3.1>D51.9</DG1.3.1><DG1.3.1>E55.9</DG1.3. .~.~<DG1.3.1> D51.9</DG1.3.1><DG1.3.1>D51.9</DG1.3.1><DG1.3.1>E55.9</DG1.3.1><DG1.3.1 .~.~<DG1.3.1>D51.9</DG1.3.1><DG1.3.1>D51.9</DG1.3.1><DG1.3.1>E55.9</DG1.3.1><DG1 .3.1 .~.~<DG1.3.1>D51.9</DG1.3.1><DG1.3.1> D51.9</DG1.3.1><DG1.3.1>E55.9</DG1.3.1><DG1.3.1 Non-Aa GFR Laboratory test result [facility] ([facility]) .~.~<DG1.3.1>D51.9</DG1.3.1><DG1.3.1>D51.9</DG1.3.1><DG1.3.1>E55.9</DG1.3.1><DG1 .3.1 Is patient fasting? N~.~.~<DG1.3.1>D51.9</DG1.3.1><DG1.3.1>D51.9</DG1.3.1><DG1.3.1>E55.9</DG1.3. .~.~<DG1.3.1> D51.9</DG1.3.1><DG1.3.1>D51.9</DG1.3.1><DG1.3.1>E55.9</DG1.3.1><DG1.3.1 .~.~<DG1.3.1>D51.9</DG1.3.1><DG1.3.1>D51.9</DG1.3.1><DG1.3.1>E55.9</DG1.3.1><DG1 .3.1 .~.~<DG1.3.1>D51.9</DG1.3.1><DG1.3.1> D51.9</DG1.3.1><DG1.3.1>E55.9</DG1.3.1><DG1.3.1 ID Date Data Source [id number] 02/26/2021 02:27:[address] [facility] Name Value Range Interpretation Code Description Data Kayleen rce(s) Supporting Document(s) Ferritin [Mass/volume] in Serum or Plasma 47.6 ng/mL 3.0 - 105 [facility] ID Date Data Source [id number] 02/26/2021 02:27:[address] [facility] Name Value Range Interpretation Code Description Data Kayleen rce(s) Supporting Document(s) Calcidiol [Moles/volume] in Serum or Plasma 23 NG/ML [facility] VITAMIN-D(2 5HYDROXY) Deficiency: <=20 ng/ml Insufficiency: 21-29 ng/ml Preferred level: => 30 ng/ml ID Date Data Source [id number] 02/26/2021 02:27:[address] [facility] Name Value Range Interpretation Code Description Data Kayleen rce(s) Supporting Document(s) Cobalamin (Vitamin B12) [Mass/volume] in Serum or Plasma 353 PG/ML 232 - 1245 [facility] ID Date Data Source [id number] 02/26/2021 02:08:[address] [facility] Name Value Range Interpretation Code Description Data Kayleen rce(s) Supporting Document(s) COMPREHENSIVE METABOLIC PANEL [facility] COMPREHENSIVE METABOLIC PANEL Sodium [Moles/volume] in Serum or Plasma 138 mEq/L 134 - 153 [facility] Potassium [Moles/volume] in Serum or Plasma 4.0 mEq/L 3.6 - 5.0 [facility] Chloride [Moles/volume] in Serum or Plasma 104 mEq/L 98 - 107 [facility] Carbon dioxide, total [Moles/volume] in Serum or Plasma 23 MEQ/L 22 - 30 [facility] Glucose [Mass/volume] in Serum or Plasma 100 MG/DL 70 - [address] [facility] BUN 12 MG[facility]DL 7 - [facility] Creat[facility] [Mass/volume] in Serum or Plasma 0.6 MG/DL 0.7 - 1.[address] [facility] BUN/CREAT 20 8 - 27 [facility] Protein [Mass/volume] in Serum or Plasma 7.1 G/DL 6.3 - 8.2 [facility] Albumin [Mass/volume] in Serum or Plasma 4.8 G/DL 3.9 - 5.0 [facility] Globulin [Mass/volume] in Serum by calculation 2.3 GM/DL 2.4 - 3.[address] [facility] A/G RATIO 2.1 0.8 - 2.0 [facility] Calcium [Mass/volume] in Serum or Plasma 9.6 MG/DL 8.4 - 10.2 [facility] Bilirubin.total [Mass/volume] in Serum or Plasma <0.7 MG/DL 0.2 - 1.3 [facility] Alkaline phosphatase [Enzymatic activity/volume] in Serum or Plasma 75 U/L 38 - 126 [facility] Aspartate aminotransferase [Enzymatic activity/volume] in Serum or Plasma 13 U/L 5 - 40 [facility] Alanine aminotransferase [Enzymatic activity/volume] in Seru m or Plasma 11 U/L 7 - 56 [facility] Anion gap 3 in Serum or Plasma 11.0 mmol/L 8.0 - 16.0 [facility] AGE 35 yrs [facility] Hospit al NON-AA GFR >60 mL/min [facility] Hosp ital AFR AMER GFR >60 mL/min [facility] Ho spital Male GFR In terprentation [...] >32 mL/min Normal ID Date Data Source [id number] 02/26/2021 02:04:[address] [facility] Name Value Range Interpretation Code Description Data Kayleen rce(s) Supporting Document(s) Iron [Mass/volume] in Serum or Plasma 45 UG/DL 42 - 135 [facility] Iron binding capacity.unsaturated [Mass/volume] in Serum or Plasma 215 UG/DL 112 - 347 [facility] Iron binding capacity [Mass/volume] in Serum or Plasma 260 ug/dL 250 - 450 [facility] Iron saturation [Mass Fraction] in Serum or Plasma 17 % [facility] ID Date Data Source [id number] 02/26/2021 01:43:[address] [facility] Name Value Range Interpretation Code Description Data Kayleen rce(s) Supporting Document(s) CBC W/AUTOMATED DIFF [facility] COMPLETE BLOOD COUNT Leukocytes [#/volume] in Blood by Automated count 12.6 10^3/uL 4.2 - 11.[address] [facility] Erythrocytes [#/volume] in Blood by Automated count 4.44 10^6/uL 4. 20 - 5.40 [facility] Hemoglobin [Mass/volume] in Blood 14.0 g/dL 12.0 - 16.0 [facility] Hematocrit [Volume Fraction] of Blood by Automated count 41.6 % 3 7.0 - 47.0 [facility] Erythrocyte mean corpuscular volume [Entitic volume] by Auto mated count 93.7 fL 81.0 - 101 [facility] Erythrocyte mean corpuscular hemoglobin [Entitic mass] by Automated count 31.5 pg 27.0 - 34.0 [facility] Erythrocyte mean corpuscular hemoglobin concentration [Mass/volume] by Automated count 33.7 g/dL 31.0 - 36.0 [facility] Erythrocyte distribution width [Ratio] by Automated count 13.9 % 11.5 - 14.5 [facility] Platelets [#/volume] in Blood by Automated count 210 10^3/uL 150 - [address] [facility] Platelet mean volume [Entitic volume] in Blood by Automated count 9.1 fL 7.4 - 10.4 [facility] Neutrophils/100 leukocytes in Blood by Automated count 66.7 % 37. 0 - 80.0 [facility] Lymphocytes/100 leukocytes in Blood by Manual count 24.8 % 25.0 - 40.[address] [facility] Monocytes/100 leukocytes in Blood by Automated count 6.6 % 3.0 - 8.0 [facility] Eosinophils/100 leukocytes in Blood by Automated count 1.4 % 0.0 - 7.0 [facility] Basophils/100 leukocytes in Blood by Automated count 0.2 % 0.0 - 2.5 [facility] %IG 0.3 % 0.0 - 0.0 [facility] %NRBC 0.0 % 0.0 - 0.0 [facility] al Neutrophils [#/volume] in Blood by Automated count 8.36 10^3/uL 2.00 - 6.[address] [facility] Lymphocytes [#/volume] in Blood by Automated count 3.12 10^3/uL 0.60 - 3.40 [facility] Monocytes [#/volume] in Blood by Automated count 0.83 10^3/uL 0.00 - 0.90 [facility] Eosinophils [#/volume] in Blood by Automated count 0.18 10^3/uL 0.00 - 0.70 [facility] Basophils [#/volume] in Blood by Automated count 0.03 10^3/uL 0.00 - 0.20 [facility] #IG 0.04 10^3/uL 0.00 - 0.10 [facility] ospital #NRBC 0.00 10^3/uL 0.00 - 0.00 [facility] MANUAL DIFF NOT INDICATED [facility] RBC MORPH NOT INDICATED [facility] spital ID Date Data Source [id number] 02/26/2021 01:22:00 PM EDT [facility] ([facility]) Name Value Range Interpretation Code Description Data Kayleen rce(s) Supporting Document(s) Treponema pallidum Ab [Presence] in Serum Laboratory test result [facility] ([facility]) Hepatitis B virus surface Ag [Presence] in Serum or Pl asma by Immunoassay Laboratory test result [facility] ([facility]) Laboratory test finding (navigational concept) Laboratory test resu lt 0.0-0.9 [facility] ([facility]) ID Date Data Source [id number] 02/26/2021 01:22:00 PM EDT [facility] ([facility]) Name Value Range Interpretation Code Description Data Kayleen rce(s) Supporting Document(s) HIV Screen 4thGeneration wRfx Laboratory test result [facility] ([facility]) ID Date Data Source [id number] 02/26/2021 01:22:00 PM EDT [facility] ([facility]) Name Value Range Interpretation Code Description Data Kayleen rce(s) Supporting Document(s) HSV 2 IgG, Type Spec 2.06 index 0.00-0.90 Above high normal [facility] ([facility]) <content>Negative <0.91</content>
<content>Equivocal 0.91 - 1.09</content>
<content>Positive >1.09</content>
<content>Note: Negative indicates no antibodies detected to</content>
<content>HSV-2. Equivocal may suggest early infection. If</content>
<content>clinically appropriate, retest at later date. Positive</content>
<content>indicates antibodies detected to HSV-2.</content>
<content></content> HSV 1 IgG, Type Spec Laboratory test result 0.00-0.90 [facility] ([facility]) <content>Negative <0.91</content>
<content>Equivocal 0.91 - 1.09</content>
<content>Positive >1.09</content>
<content>Note: Negative indicates no antibodies detected to</content>
<content>HSV-1. Equivocal may suggest early infection. If</content>
<content>clinically appropriate, retest at later date. Positive</content>
<content>indicates antibodies detected to HSV-1.</content>
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 Positive/Equivocal Negative Unable to confirm the presence of IgG antibodies to HSV-2. Recommend retesting in 2-4 weeks. ID Date Data Source [id number] 02/26/2021 01:22:00 PM EDT [facility] ([facility]) Name Value Range Interpretation Code Description Data [facility](s) Supporting Document(s) HSV, IgM I/II Combination Laboratory test result 0.00-0.90 [facility] ([facility]) <content>Negative <0.91</content>
<content>Equivocal 0.91 - 1.09</content>
<content>Positive >1.09</content>
<content></content> ID Date Data Source [id number] 02/26/2021 01:22:00 PM EDT [facility] ([facility]) Name Value Range Interpretation Code Description Data Kayleen rce(s) Supporting Document(s) Fibrosis Score 0.02 NA 0.00-0.21 [facility] ([facility]) Fibrosis Stage Laboratory test result [facility] ([facility]) F0 - No fibrosis Necroinflammat ActivityScore 0.03 NA 0.00-0.17 [facility] ([facility]) Necroinflammat ActivityGrade Laboratory test result [facility] ([facility]) Haptoglobin 228 mg/dL 33-278 [facility] ([facility]) Alpha 2-Macroglobulins,Qn 157 mg/dL 110-276 [facility] ([facility]) GGT 12 IU/L 0-60 [facility] ([facility]) Apolipoprotein A-1 105 mg/dL 116-209 Below low normal [facility] ([facility]) Bilirubin, Total 0.1 mg/dL 0.0-1.2 [facility] ([facility]) Laboratory test finding (navigational concept) Laboratory test result [facility] ([facility]) Quantitative results of 6 biochemical te sts are analyzed using a computational algorithm to provide a quantitative surrogate marker (0.0-1.0) for liver fibrosis (METAVIR F0-F4) and for necroinflammatory activity (METAVIR A0-A3). Alt (SGPT) P5P 13 IU/L 0-40 [facility] ([facility]) Laboratory test finding (navigational concept) [facility] <content><=0.21 = Stage F0 - No fibrosis [...] test finding (navigational concept) Laboratory test result [facility] ([facility]) <content>The negative predictive value o f a [...] finding (navigational concept) Laboratory test result [facility] ([facility]) <content><0.17 = Grade A0 - No Activity< /content>
<content>0.17 - 0.29 = Grade A0 - A1</content>
<content>0.29 - 0.36 = Grade A1 - Minimal activity</content>
<content>0.36 - 0.52 = Grade A1 - A2</content>
<content>0.52 - 0.60 = Grade A2 - Moderate activity</content>
<content>0.60 - 0.62 = Grade A2 - A3</content>
<content>>0.62 = Grade A3 - Severe activity</content>
<content></content> Comment: Laboratory test result [facility] ([facility]) ID Date Data Source [id number] 03/02/2021 07:41:[address] [facility] Name Value Range Interpretation Code Description Data Kayleen rce(s) Supporting Document(s) Fibrosis score 0.02 NA 0.00-0.21 [facility] Fibrosis stage COMMENT [facility] F0 - No fibrosis Necroinflammatory activity score 0.03 NA 0.00-0.17 [facility] Necroinflammatory activity grade A0-No activity [facility] Clupa-1-Fsjbdtsbpfatf [Mass/volume] in Serum or Plasma 157 mg/dL 110 -276 [facility] Haptoglobin [Mass/volume] in Serum or Plasma 228 mg/dL 33-278 [facility] Apolipoprotein A-I [Mass/volume] in Serum or Plasma 105 mg/dL 116-[address] [facility] Bilirubin.total [Mass/volume] in Serum or Plasma 0.1 mg/dL 0.0-1.2 [facility] Gamma glutamyl transferase [Enzymatic activity/volume] in Serum or Plasma 12 IU/L 0-60 [facility] Alanine aminotransferase [Enzymatic acti vity/volume] in Serum or Plasma by With P-5'-P 13 IU/L 0-40 [facility] Interpretations: COMMENT [facility] Quantitative results of 6 biochemical te sts are analyzed usinga computational algorithm to provide a quantitative surrogatemarker (0.0-1.0) for liver fibrosis (METAVIR F0-F4) and fornecroinflammatory activity (METAVIR A0-A3). Fibrosis Scoring: COMMENT [facility] <=0.21 = Stage F0 - No fibrosis0.21 [...] Stage F4 - Cirrhosis Necroinflamm ActivityScoring: COMMENT [facility] <0.17 = Grade A0 - No Activity0.17 - 0.29 = Grade A0 - A10.29 - 0.36 = Grade A1 - Minimal activity0.36 - 0.52 = Grade A1 - A20.52 - 0.60 = Grade A2 - Moderate activity0.60 - 0.62 = Grade A2 - A3 >0.62 = Grade A3 - Severe activity Service comment COMMENT [facility] The negative predictive value of a Fibro [...] comment [Text] in Report Narrative WILL FOLLOW [facility] ID Date Data Source [id number] 02/28/2021 04:18:[address] [facility] Name Value Range Interpretation Code Description Data Kayleen rce(s) Supporting Document(s) Herpes simplex virus 1+2 IgM Ab [Units/volume] in Seru m by Immunoassay <0.91 Ratio 0.00-0.90 [facility] Negative <0.91 Equivocal 0.91 - 1.09 Positive >1.09 ID Date Data Source [id number] 02/27/2021 04:56:[address] [facility] Name Value Range Interpretation Code Description Data Kayleen rce(s) Supporting Document(s) Herpes simplex virus 1 IgG Ab [Units/volume] in Serum by Immunoassay <0.91 index 0.00-0.90 [facility] Negative <0.91 Equivocal 0.91 - 1.09 Positive >1.09 Note: Negative indicates no antibodies detected to HSV-1. Equivocal may suggest early infection. If clinically appropriate, retest at later date. Positive indicates antibodies detected to HSV-1. Herpes simplex virus 2 IgG Ab [Units/volume] in Serum by Imm unoassay 2.06 index 0.00-0.[address] [facility] Negative <0.91 Equivocal 0.91 - 1.09 Positive >1.09 Note: Negative indicates no antibodies detected to HSV-2. Equivocal may suggest early infection. If clinically appropriate, retest at later date. Positive indicates antibodies detected to HSV-2. Herpes simplex virus 2 IgG Ab [Presence] in Serum or P lasma by Immunoassay Positive Negative A [facility] HSV-2 IgG HSV-2 IgG Type Specific Confirmation Interpretation Positiv e/Equivocal Positive Indicates the presence of detectable IgG antibodies to HSV-2. ------ Positive/Equivocal Negative Unable to confirm the presence of IgG antibodies to HSV-2. Recommend retesting in 2-4 weeks. ID Date Data Source [id number] 02/27/2021 04:48:[address] [facility] Name Value Range Interpretation Code Description Data Kayleen rce(s) Supporting Document(s) HIV 1+2 Ab+HIV1 p24 Ag [Presence] in Serum or Plasma b y Immunoassay Non Reactive Non Reactive [facility] ID Date Data Source [id number] 02/27/2021 04:48:00 PM EDT [facility] Value Range Interpretation Code Description Data Kayleen rce(s) Supporting Document(s) Hepatitis C virus Ab Signal/Cutoff in Serum or Plasma by Immunoassay <0.1 s/coratio 0.0-0.9 [facility] ID Date Data Source [id number] 02/26/2021 02:29:00 PM EDT [facility] Value Range Interpretation Code Description Data Kayleen rce(s) Supporting Document(s) Hepatitis B virus surface Ab [Units/volume] in Serum o r Plasma by Immunoassay NONREACTIVE NORMAL:NON REACTIVE [facility] ID Date Data Source [id number] 02/26/2021 02:29:00 PM EDT [facility] Value Range Interpretation Code Description Data Kayleen rce(s) Supporting Document(s) Treponema pallidum Ab [Presence] in Serum NON-REACTIVE NORMAL:NON FLOWER CTIVE [facility] ID Date Data Source [id number] 02/22/2021 08:28:00 AM EDT [facility] ([facility]) Name Value Range Interpretation Code Description Data Kayleen rce(s) Supporting Document(s) Sars-CoV-2, Tracey Laboratory test result [facility] ([facility]) .~.~Z11.59 Laboratory test finding (navigational concept) Laboratory test result [facility] ([facility]) .~.~Z11.59 ID Date Data Source [id number] 02/22/2021 08:28:00 AM EDT [facility] Name Value Range Interpretation Code Description Data Kayleen rce(s) Supporting Document(s) SARS coronavirus 2 RNA Not Detected [facility] This lab was ordered by [facility] Eric ceballos and reported by [employer]. ID Date Data Source [id number] 02/24/2021 06:53:[address] [facility] Name Value Range Interpretation Code Description Data Kayleen rce(s) Supporting Document(s) SARS-CoV-2, TRACEY Not Detected Not Detected [facility] This nucleic acid amplification test was developed and its performancecharacteristics determined by [email or web address]. Nucleic acidamplification tests include RT-PCR and TMA. [...] assay. SARS-CoV-2, TRACEY 2 DAY TAT Performed [facility] ID Date Data Source [id number] 02/22/2021 08:28:00 AM EDT [facility] ([facility]) Name Value Range Interpretation Code Description Data Kayleen rce(s) Supporting Document(s) Covid-19 Laboratory test result [facility] ([facility]) ID Date Data Source [id number] 02/22/2021 07:44:[address] [facility] [address] [facility] Emergency Department [address] [place] [address] Phone #: ext- [phone] 02/22/2021 07:40 [id number] Sex[facility] : 1985 Age: 35yWeight: 67.1 kgHeight/Length: 61 in.BMI: 28.0ALLERGIES: Morphine and RelatedThe patient's Home Medications are listed below:THE FOLLOWING MEDICATIONS NEED TO BE RECONCILED: PropanololThe source(s) of the original Home Medication information:Not obtained.The following Medications were given to the patient in the Emergency Department:None.The following Medications were prescribed to the patient:None. Name Value Range Interpretation Code Description Data Kayleen [facility](s) Supporting Document(s) ID Date Data Source [id number] 02/22/2021 07:44:00 AM EDT [place] [address] [facility] Emergency Department [address] [place] [address] Phone #: ext [phone] 02/22/2021 07:40 [id number] Sex: F : 1985 Age: 35yWeight: 67.1 kgHeight/Length: 61 inBMI: 28ALLERGIES: Morphine and RelatedDate/Time Medication Administered Medication Ordered Name Value Range Interpretation Code Description Data Kayleen rce(s) Supporting Document(s) ID Date Data Source [id number] 02/22/2021 07:44:[address] [facility] [address] [facility] Emergency Department [address] [place] [address] Phone #: ext- [phone] 02/22/2021 07:40 Patient: DOROTEO AC Sex: F [...] rce(s) Supporting Document(s) ID Date Data Source [id number] 02/22/2021 07:44:[address] [facility] 1 Clinical Report - Nurses [facility] Emergency Department [address] [place] [address] Phone #: ext- [phone] 02/22/2021 07:40 Patient: [...] had fever (monday). ( runny nose, congtestion).Treatment SHIP [employer]PENTER:Took ibuprofen. (330).SEPSIS SCREEN: SIRS SCREEN NEGATIVE. SEPSIS [...] personality disorder.Diarrhea.Headache.Schizophrenia. 2 Clinical Report - Nurses [facility] Emergency Department [address] [place] [address] Phone #: ext- [phone] 02/22/2021 07:40 Patient: DOROTEO AC Sex: F : 1985 Age: 35yVomiting.Seasonal allergic [...] Rainey R.N. 3 Clinical Report - Nurses [facility] Emergency Department [address] [place] [address] Phone #: ext- [phone] 02/22/2021 07:40 Patient: DOROTEO AC Sex: F [...] rce(s) Supporting Document(s) ID Date Data Source [id number] 02/22/2021 07:44:[address] [facility] 1 Clinical Report - Physicians/Mid Levels [facility] Emergency Department [address] [place] [address] Phone #: ext- [phone] 02/22/2021 07:40 [id number] Sex[facility] F : 1985 Age: 35y Time [...] rash). 2 Clinical Report - Physicians/Mid Levels [facility] Emergency Department [address] [place] [address] Phone #: ext- [phone] 02/22/2021 07:40 Patient: [...] saturation: 99%. Temp: 98 F.Pain level now: 510. Have been reviewed and appear to be correct.PROGRESS AND PROCEDURESCourse of Care: 07:59 02/22/21. 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, berated her, then I came into roomafterwards [...] Name Value Range Interpretation Code Description Data [facility] Document(s) ID Date Data Source [id number] 02/17/2021 02:29:00 PM EDT [facility] ([facility]) Name Value Range Interpretation Code Description Data [facility](s) Supporting Document(s) Z#Other Observations Laboratory test result [facility] ([facility]) ID Date Data Source [id number] 02/17/2021 02:29:00 PM EDT [facility] ([facility]) Name Value Range Interpretation Code Description Data [facility](s) Supporting Document(s) Chlamydia trachomatis rRNA [Presence] in Unspecified s pecimen by DNA probe Laboratory test result [facility] ([facility]) Neisseria gonorrhoeae DNA [Presence] in Cervical mucus by Probe and target amplification method Laboratory test result [facility] ([facility]) ID Date Data Source [id number] 02/17/2021 02:27:00 PM EDT [facility] ([facility]) Name Value Range Interpretation Code Description Data Kayleen rce(s) Supporting Document(s) Source: Laboratory test result [facility] ([facility]) {SOURCE: Genital Isabela species Laboratory test result Abnormal (applies to non-numeric results) [facility] ([facility]) {SOURCE: Genital Gardnerella vaginalis Laboratory test result Abn ormal (applies to non-numeric results) [facility] ([facility]) {SOURCE: Genital Trichomonas vaginalis Laboratory test result [facility] ([facility]) {SOURCE: Genital ID Date Data Source [id number] 02/17/2021 02:27:00 PM EDT [facility] ([facility]) Name Value Range Interpretation Code Description Data Kayleen rce(s) Supporting Document(s) Chlamydia by Tracey Laboratory test result [facility] ([facility]) {SOURCE: Genital Gonococcus by Tracey Laboratory test result [facility] ([facility]) {SOURCE: Genital Source: Laboratory test result [facility] ([facility]) {SOURCE: Genital Trich vag by Tracey Laboratory test result [facility] ([facility]) {SOURCE: Genital ID Date Data Source [id number] 02/17/2021 02:27:00 PM EDT [facility] ([facility]) Name Value Range Interpretation Code Description Data Kayleen rce(s) Supporting Document(s) Treponema pallidum IgG Ab [Presence] in Serum Laboratory test result [facility] ([facility]) Laboratory test finding (navigational concept) Laboratory test result [facility] ([facility]) Hepatitis B virus surface Ag [Presence] in Serum or Pl asma by Immunoassay Laboratory test result [facility] ([facility]) ID Date Data Source [id number] 02/17/2021 02:27:00 PM EDT [facility] ([facility]) Name Value Range Interpretation Code Description Data Kayleen rce(s) Supporting Document(s) Hepatitis C virus Ab [Units/volume] in Serum by Immuno assay Laboratory test result [facility] ([facility]) ID Date Data Source [id number] 02/17/2021 02:27:00 PM EDT [facility] ([facility]) Name Value Range Interpretation Code Description Data Kayleen rce(s) Supporting Document(s) Treponema pallidum Ab [Presence] in Serum Laboratory test result [facility] ([facility]) ID Date Data Source [id number] 02/20/2021 06:44:[address] [facility] Name Value Range Interpretation Code Description Data Kayleen rce(s) Supporting Document(s) SOURCE: Genital [facility] Chlamydia trachomatis rRNA [Presence] in Unspecified specimen by Probe and target amplification method Negative Negative [facility] Neisseria gonorrhoeae rRNA [Presence] in Unspecified specimen by Probe and target amplification method Negative Negative [facility] Trichomonas vaginalis DNA [Presence] in Unspecified specimen by Probe and target amplification method Negative Negative [facility] ID Date Data Source [id number] 02/19/2021 07:41:[address] [facility] Name Value Range Interpretation Code Description Data Kayleen rce(s) Supporting Document(s) SOURCE: Genital [facility] Isabela sp rRNA [Presence] in Vaginal fluid by DNA probe Positive N egative [facility] Gardnerella vaginalis rRNA [Presence] in Genital specimen by DNA probe Positive Negative A [facility] Trichomonas vaginalis rRNA [Presence] in Genital specimen by DNA probe Negative Negative [facility] ID Date Data Source [id number] 02/17/2021 02:05:00 PM EDT [facility] ([facility]) Name Value Range Interpretation Code Description Data Kayleen rce(s) Supporting Document(s) Laboratory test finding (navigational concept) Laboratory test result [facility] ([facility]) .~.~R30.0 Color Laboratory test result [facility] ([facility]) .~.~R30.0 Source Laboratory test result [facility] ([facility]) .~.~R30.0 Clarity Laboratory test result [facility] ([facility]) .~.~R30.0 Spec [place] 1.020 1.001-1.030 [facility] ([facility]) .~.~R30.0 pH 6 5-9 [facility] ([facility]) .~.~R30.0 Bilirubin Laboratory test result [facility] ([facility]) .~.~R30.0 Glucose Laboratory test result [facility] ([facility]) .~.~R30.0 Ketone Laboratory test result [facility] ([facility]) .~.~R30.0 Protein 15 [facility] ([facility]) .~.~R30.0 Nitrite Laboratory test result [facility] ([facility]) .~.~R30.0 Blood 10 Abnormal (applies to non-numeric res ults) [facility] ([facility]) .~.~R30.0 Urobilinogen Laboratory test result [facility] ([facility]) .~.~R30.0 Microscopic Laboratory test result M [facility] ([facility]) .~.~R30.0 Leuk Est 25 [facility] ([facility]) .~.~R30.0 RBC Laboratory test result [facility] ([facility]) .~.~R30.0 WBC Laboratory test result Abnormal (applies to non -numeric results) [facility] ([facility]) .~.~R30.0 Bacteria Laboratory test result Abnormal (applies to non -numeric results) [facility] ([facility]) .~.~R30.0 Epithelial Laboratory test result [facility] ([facility]) .~.~R30.0 Mucous Laboratory test result [facility] ([facility]) .~.~R30.0 Yeast Laboratory test result Abnormal (applies to non -numeric results) [facility] ([facility]) .~.~R30.0 ID Date Data Source [id number] 02/17/2021 02:05:00 PM EDT [facility] ([facility]) Name Value Range Interpretation Code Description Data Kayleen rce(s) Supporting Document(s) Culture Urine Laboratory test result [facility] ([facility]) .~.~R30.0 ID Date Data Source [id number] 02/24/2021 02:06:00 PM EDT [facility] Name Value Range Interpretation Code Description Data Kayleen rce(s) Supporting Document(s) CULTURE URINE [facility] _CULTURE URINE_$$[id number]$$375814$$679912$$675916$$519095$$516910$$099343$$584730$$176947$$ 984121$$906236$$047142$$660772$$843315$$365891$$494460$$557848$$855545$$700720$$ 030147$$317325$$477652$$868378$$315553$$288589$$883321$$026258 -- Continued on next page --Patient: OSORIO SADLER L Order: [id number] Page 2Culture: CULTURE URINE Status: Final ==== -- Continued on next page --Patient: OSORIO SADLER L Order: [id number] Page 2Culture: CULTURE URINE Status: Prelim ===== -- Continued on next page --Patient: OSORIO SADLER L Order: [id number] Page 2Culture: CULTURE URINE Status: Prelim =====$$[id number]$$[id number] DATE/TIME: 02/24/2021 12:06Culture: CULTURE URINE Status: FinalIsolate [...] 02/21/2021 07:12 ET Gram negative rodsUrine Culture,Comprehensive: [id number] coli Flag: APatient: OSORIO Lind Order: [id number] Page 3Culture: CULTURE URINE Status: Final ====ISOLATE [...] S S . . . . . .23408-7Vbbaonzacy S S . . . . . .267-5Imipenem S S . . . . . .279-0Levofloxacin S S . . . . . .75859-8Gvtjtqqfa S S . . . . . .6652-2Nitrofurantoin S S . . . . . .363- 2Piperacillin/Tazobactam S S . . . . . .412-7Tetracycline S S . . . . . .496-0Tobramycin S S . . . . . .508-2Trimethoprim/Sulfa S S . . . . . .516-5P1 Test performed by: [facility] #: [id number] [address] [place] [address] [id number] [facility] [id number] Director : Pacheco Castillo MD NPI #:[employer] Operator : 02/22/21.0645.XMT.SENT REF 02/23/21.1623.XMT.SENT REF 02/24/21.1406.XMT.SENT REF ID Date Data Source [id number] 02/17/2021 08:53:[address] [facility] Name Value Range Interpretation Code Description Data Kayleen rce(s) Supporting Document(s) UA REFLEX TO UA CULTURE [facility] URINALYSIS SOURCE R [facility] COLOR yellow NORMAL: Yellow [facility] CLARITY hazy NORMAL: Clear [facility] Specific gravity of Urine by Test strip 1.020 1.001 - 1.030 [facility] pH 6 5 - 9 [facility] Gl[facility] [Mass/volume] in Urine by Test strip NORM NORMAL: Negat [facility] Bilirubin.total [Presence] in Urine by Test strip NEG NORMAL: Negative [facility] Ketones [Presence] in Urine by Test strip NEG NORMAL: Negative [facility] Protein [Mass/volume] in Urine by Test strip 15 NORMAL: Negat [facility] Nitrite [Presence] in Urine by Test strip POS NORMAL: Negative [facility] BLOOD 10 NORMAL: Negative [facility] Leukocyte esterase [Presence] in Urine by Test strip 25 CRISTINE L: Negative [facility] Urobilinogen [Mass/volume] in Urine by Test strip NOR less chrystal n 1.0 mg/dL [facility] MICROSCOPIC See Below [facility] ital WBC 5 - 7 NORMAL: NONE SEEN A [facility] Erythrocytes [#/volume] in Urine by Test strip 1 - 3 NORMAL: NON E SEEN [facility] EPITHELIAL None Seen NORMAL: NONE SEEN [facility] Bacteria [Presence] in Urine sediment by Light microscopy 3+ LARGE NORMAL: NONE SEEN A [facility] Mucus [Presence] in Urine sediment by Light microscopy 1+ NOR MAL: NONE SEEN [facility] YEAST Few [facility] HYPAE YEAST ID Date Data Source [id number] 01/24/2021 02:54:00 PM EDT [facility] ([facility]) Name Value Range Interpretation Code Description Data Kayleen rce(s) Supporting Document(s) Laboratory test finding (navigational concept) Laboratory test result [facility] ([facility]) Sars-CoV-2, Tracey Laboratory test result [facility] ([facility]) This nucleic acid amplification test was developed and its performance characteristics determined by [email or web address]. Nucleic acid amplification tests include RT-PCR and [...] in this assay. ID Date Data Source [id number] 01/27/2021 03:33:[address] [facility] Name Value Range Interpretation Code Description Data Kayleen rce(s) Supporting Document(s) SARS-CoV-2, TRACEY Not Detected Not Detected [facility] This nucleic acid amplification test was developed and its performancecharacteristics determined by [facility]. Nucleic acidamplification tests include RT-PCR and [...] assay. SARS-CoV-2, TRACEY 2 DAY TAT Performed [facility] ID Date Data Source [id number] 01/24/2021 02:53:00 PM EDT [facility] Name Value Range Interpretation Code Description Data Kayleen e(s) Supporting Document(s) SARS coronavirus 2 RNA Not Detected [facility] This lab was ordered by [facility] Eric ceballos and reported by [facility]. ID Date Data Source [id number] 01/06/2021 02:11:00 PM EDT [facility] ([facility]) Name Value Range Interpretation Code Description Data Kayleen rce(s) Supporting Document(s) White Blood Count 9.9 10 4.0-10.0 Normal (applies to non-numeri c results) [facility] ([facility]) Red Blood Count 4.22 10 4.00-5.40 Normal (applies to non-numeric results) [facility] ([facility]) Hemoglobin 13.1 g/dL 12.0-15.5 Normal (applies to non-numeric resul ts) [facility] ([facility]) Hematocrit 39.7 % 36.0-47.0 Normal (applies to non-numeric resul ts) [facility] Mean Corpuscular Volume 94.1 fl 80.0-96.0 Normal ( applies to non-numeric results) [facility] ([facility]) Mean Corpuscular Hemoglobin 31.0 pg 27.0-33.0 Norm al (applies to non-numeric results) [facility] ([facility]) Mean Corpuscular HGB Conc 33.0 g/dL 32.0-36.5 Normal (applies to non-numeric results) [facility] ([facility]) Neutrophils % 64.3 % 36.0-66.0 Normal (applies to non-numeric re sults) [facility]) Red Cell Distribution Width 14.5 % 11.5-14.5 Norm al (applies to non-numeric results) [facility] ([facility]) Platelet Count, Automated 245 10 150-450 Normal (applies to non-numeric results) [facility] ([facility]) Lymph % 27.1 % 24.0-44.0 Normal (applies to non-numeric resul ts) [facility] Buchanan % 6.4 % 2.0-8.0 Normal (applies to non-numeric resul ts) [facility] Eos % 1.5 % 0.0-3.0 Normal (applies to non-numeric resul ts) [facility] ([facility]) Baso % 0.3 % 0.0-1.0 Normal (applies to non-numeric resul ts) [facility] ([facility]) Immature Granulocyte % 0.4 % 0-3.0 Normal (applies to non-n umeric results) [facility] Nucleated Red Blood Cell % 0.0 % 0-0 Normal (applies to n on-numeric results) [facility]) Neutrophils # 6.4 10 1.5-8.5 Normal (applies to non-numeric re sults) [facility] ([facility]) Buchanan # 0.6 10 0.0-0.8 Normal (applies to non-numeric resul ts) [facility] ([facility]) Lymph # 2.7 10 1.5-5.0 Normal (applies to non-numeric resul ts) [facility] ([facility]) Baso # 0.0 10 0.0-0.2 Normal (applies to non-numeric resul ts) [facility] ([facility]) Eos # 0.2 10 0.0-0.5 Normal (applies to non-numeric resul ts) [facility] ([facility]) ID Date Data Source [id number] 01/06/2021 02:11:00 PM EDT [facility] ([facility]) Name Value Range Interpretation Code Description Data Kayleen rce(s) Supporting Document(s) Glucose, Fasting 109 mg/dL 70-100 Above high normal [facility] Glomerular Filtration Rate Laboratory test result Normal (applies to non- numeric results) [facility] ([facility]) <content>Units are mL/min/1.73 m2</content>
<content></content>
<content>Chronic Kidney Disease Staging per NKF:</content>
<content></content>
<content>Stage I & II GFR >=60 Normal to Mildly Decreased</content>
<content>Stage III GFR 30- 59 Moderately Decreased</content>
<content>Stage IV GFR 15-29 Severely Decreased</content>
<content>Stage V GFR <15 Very Little GFR Left</content>
<content>ESRD GFR <15 on FACILITIES FLIGHT CHECK PILOT</content>
<content></content> Blood Urea Nitrogen 14 mg/dL 7-18 Normal (applies to non-nume javier results) [facility] ([facility]) Creatinine For GFR 0.66 mg/dL 0.55-1.30 Normal (applies to non -numeric results) [facility] ([facility]) Sodium Level 141 meq/L 136-145 Normal (applies to non-numeric res ults) [facility]) Chloride Level 111 meq/L 98-107 Above high normal [facility] ([facility]) Potassium Serum 3.9 meq/L 3.5-5.1 Normal (applies to non-numeric results) [facility] ([facility]) Anion Gap 4 meq/L 8-16 Below low normal [facility] ( [facility]) Carbon Dioxide Level 26 meq/L 21-32 Normal (applies to non-num davida results) [facility] ([facility]) Ast/Sgot 12 U/L 7-37 Normal (applies to non-numeric resul ts) [facility] ([facility]) Alt/SGPT 18 U/L 12-78 Normal (applies to non-numeric resul ts) [facility] ([facility]) Calcium Level 8.9 mg/dL 8.5-10.1 Normal (applies to non-numeric re sults) [facility] ([facility]) Alkaline Phosphatase 76 U/L 45-117 Normal (applies to non-num davida results) [facility] ([facility]) Bilirubin,Total 0.5 mg/dL 0.2-1.0 Normal (applies to non-numeric results) [facility] ([facility]) Total Protein 7.2 GM/DL 6.4-8.2 Normal (applies to non-numeric re sults) [facility] ([facility]) Albumin/Globulin Ratio 1.2 1.2-2.2 Normal (applies to non-n umeric results) [facility] ([facility]) Albumin 3.9 GM/DL 3.2-5.2 Normal (applies to non-numeric resul ts) [facility] ([facility]) ID Date Data Source [id number] 01/06/2021 02:11:00 PM EDT [facility] ([facility]) Name Value Range Interpretation Code Description Data Kayleen rce(s) Supporting Document(s) Iron (Fe) 78 ug/dL 50-170 Normal (applies to non-numeric resul ts) [facility] ([facility]) Percent Saturation 30.5 % 13.2-45.0 Normal (applies to non-numer ic results) [facility] ([facility]) Total Iron Binding Capacity 256 ug/dL 250-450 Norm al (applies to non-numeric results) [facility] ([facility]) ID Date Data Source [id number] 01/06/2021 02:11:00 PM EDT [facility] ([facility]) Name Value Range Interpretation Code Description Data Kayleen rce(s) Supporting Document(s) Ferritin [Mass/volume] in Serum or Plasma 73 ng/mL 8-252 Normal (applies to non- numeric results) [facility] ([facility]) <content>note:<nlbl:demographic_changed> </content>
<content></content> ID Date Data Source [id number] 11/20/2020 01:35:00 PM EDT [facility] ([facility]) Name Value Range Interpretation Code Description Data Kayleen rce(s) Supporting Document(s) Laboratory test finding (navigational concept) Laboratory test result [facility] ([facility]) Sars-CoV-2, Tracey Laboratory test result [facility] ([facility]) This nucleic acid amplification test was developed and its performance characteristics determined by [email or web address]. Nucleic acid amplification tests include RT-PCR and [...] in this assay. ID Date Data Source [id number] 11/22/2020 12:30:[address] [facility] Name Value Range Interpretation Code Description Data Kayleen rce(s) Supporting Document(s) SARS-CoV-2, TRACEY Not Detected Not Detected [facility] This nucleic acid amplification test was developed and its performancecharacteristics determined by [facility]. Nucleic acidamplification tests include RT-PCR and TMA. [...] assay. SARS-CoV-2, TRACEY 2 DAY TAT Performed [facility] ID Date Data Source [id number] 11/20/2020 01:35:00 PM EDT [facility] Name Value Range Interpretation Code Description Data [facility] Supporting Document(s) SARS coronavirus 2 RNA Not Detected [facility] This lab was ordered by [facility] Eric ceballos and reported by [facility]. ID Date Data Source [id number] 11/17/2020 01:31:00 PM EDT [facility] ([facility]) Name Value Range Interpretation Code Description Data Kayleen rce(s) Supporting Document(s) Comprehensive [employer] Laboratory test result [facility] ([facility]) Is patient fasting? N Chloride 104 meq/L 98-107 [facility] ([facility]) Is patient fasting? N Sodium 138 meq/L 134-153 [facility] ([facility]) Is patient fasting? N Potassium 4.2 meq/L 3.6-5.0 [facility] ([facility]) Is patient fasting? N Glucose 106 mg/dL 70-99 Above high normal [facility] ([facility]) Is patient fasting? N Co2 24 meq/L 22-30 [facility] ([facility]) Is patient fasting? N BUN 8 mg/dL 7-21 [facility] ([facility]) Is patient fasting? N Creatinine 0.6 mg/dL 0.7-1.5 Below low normal [facility] ( [facility]) Is patient fasting? N BUN/Creat 13 8-27 [facility] ([facility]) Is patient fasting? N Total Protein 6.8 g/dL 6.3-8.2 [facility] ([facility]) Is patient fasting? N Globulin 2.3 GM/DL 2.4-3.2 Below low normal [facility] ( [facility]) Is patient fasting? N Albumin 4.5 g/dL 3.9-5.0 [facility] ([facility]) Is patient fasting? N A/G Ratio 2.0 0.8-2.0 [facility] ([facility]) Is patient fasting? N Calcium 9.3 mg/dL 8.4-10.2 [facility] ([facility]) Is patient fasting? N Alkaline Phos 89 U/L 38-126 [facility] ([facility]) Is patient fasting? N Total Bili Laboratory test result 0.2-1.3 ME [facility] ([facility]) Is patient fasting? N Sgot/Ast 16 U/L 5-40 [facility] ([facility]) Is patient fasting? N SGPT/Alt 7 U/L 7-56 [facility] ([facility]) Is patient fasting? N Age 35 yrs [facility] ([facility]) Is patient fasting? N Anion Gap 10.0 mmol/L 8.0-16.0 [facility] ([facility]) Is patient fasting? N Afr Amer GFR Laboratory test result [facility] ([facility]) Is patient fasting? N Non-Aa GFR Laboratory test result [facility] ([facility]) Is patient fasting? N ID Date Data Source [id number] 11/17/2020 01:31:00 PM EDT [facility] ([facility]) Name Value Range Interpretation Code Description Data Kayleen rce(s) Supporting Document(s) Calcidiol [Mass/volume] in Serum or Plasma 19 ng/mL [facility] ([facility]) Is patient fasting? N Cobalamin (Vitamin B12) [Mass/volume] in Serum or Plasma 204 pg/ mL 232-1245 Below low normal [facility] ([facility]) Is patient fasting? N ID Date Data Source [id number] 11/17/2020 01:31:00 PM EDT [facility] ([facility]) Name Value Range Interpretation Code Description Data Kayleen rce(s) Supporting Document(s) CBC W/Automated Diff Laboratory test result [facility] ([facility]) Is patient fasting? N WBC 10.1 10^3/uL 4.2-11.0 [facility] ([facility]) Is patient fasting? N Hematocrit 41.2 % 37.0-47.0 [facility] ([facility]) Is patient fasting? N RBC 4.55 10^6/uL 4.20-5.40 [facility] ([facility]) Is patient fasting? N Hemoglobin 13.7 g/dL 12.0-16.0 [facility] ([facility]) Is patient fasting? N MCH 30.1 pg 27.0-34.0 [facility] ([facility]) Is patient fasting? N MCV 90.5 fL 81.0-101 [facility] ([facility]) Is patient fasting? N Platelets 259 10^3/uL 150-450 [facility] ([facility]) Is patient fasting? N MCHC 33.3 g/dL 31.0-36.0 [facility] ([facility]) Is patient fasting? N RDW 15.1 % 11.5-14.5 Above high normal [facility] ([facility]) Is patient fasting? N Lymph 34.6 % 25.0-40.0 [facility] ([facility]) Is patient fasting? N MPV 9.1 fL 7.4-10.4 [facility] ([facility]) Is patient fasting? N Neut 54.3 % 37.0-80.0 [facility] ([facility]) Is patient fasting? N Eos 2.8 % 0.0-7.0 [facility] ([facility]) Is patient fasting? N Buchanan 7.5 % 3.0-8.0 [facility] ([facility]) Is patient fasting? N Baso 0.4 % 0.0-2.5 [facility] ([facility]) Is patient fasting? N %NRBC 0.0 % 0.0-0.0 [facility] ([facility]) Is patient fasting? N %Ig 0.4 % 0.0-0.0 Above high normal [facility] ([facility]) Is patient fasting? N #Neut 5.48 10^3/uL 2.00-6.90 [facility] ([facility]) Is patient fasting? N #Lymph 3.49 10^3/uL 0.60-3.40 Above high normal [facility] ([facility]) Is patient fasting? N #Buchanan 0.76 10^3/uL 0.00-0.90 [facility] ([facility]) Is patient fasting? N #Eos 0.28 10^3/uL 0.00-0.70 [facility] ([facility]) Is patient fasting? N #Baso 0.04 10^3/uL 0.00-0.20 [facility] ([facility]) Is patient fasting? N #Ig 0.04 10^3/uL 0.00-0.10 [facility] ([facility]) Is patient fasting? N #NRBC 0.00 10^3/uL 0.00-0.00 [facility] ([facility]) Is patient fasting? N Manual Diff Laboratory test result [facility] ([facility]) Is patient fasting? N RBC Morph Laboratory test result [facility] ([facility]) Is patient fasting? N ID Date Data Source [id number] 11/17/2020 01:31:00 PM EDT [facility] ([facility]) Name Value Range Interpretation Code Description Data Kayleen rce(s) Supporting Document(s) Uibc 173 ug/dL 112-347 [facility] ([facility]) Is patient fasting? N Iron 58 ug/dL 42-135 [facility] ([facility]) Is patient fasting? N Tibc 231 ug/dL 250-450 Below low normal [facility] ( [facility]) Is patient fasting? N Iron Sat 25 % [facility] [facility]) Is patient fasting? N ID Date Data Source [id number] 11/17/2020 01:31:00 PM EDT [facility] ([facility]) Name Value Range Interpretation Code Description Data Kayleen rce(s) Supporting Document(s) Iron binding capacity [Mass/volume] in Serum or Plasma Laborator y test result [facility] ([facility]) Iron [Mass/volume] in Serum or Plasma Laboratory test result [facility] ([facility]) Ferritin [Mass/volume] in Serum or Plasma 63.5 ng/mL 3.0-105 [facility] ([facility]) Is patient fasting? N ID Date Data Source [id number] 11/17/2020 06:29:[address] [facility] Name Value Range Interpretation Code Description Data Kayleen rce(s) Supporting Document(s) COMPREHENSIVE METABOLIC PANEL [facility] COMPREHENSIVE METABOLIC PANEL Sodium [Moles/volume] in Serum or Plasma 138 mEq/L 134 - 153 [facility] Potassium [Moles/volume] in Serum or Plasma 4.2 mEq/L 3.6 - 5.0 [facility] Chloride [Moles/volume] in Serum or Plasma 104 mEq/L 98 - 107 [facility] Carbon dioxide, total [Moles/volume] in Serum or Plasma 24 MEQ/L 22 - 30 [facility] Glucose [Mass/volume] in Serum or Plasma 106 MG/DL 70 - [address] [facility] BUN 8 MG/DL 7 - [facility] Creatinine [Mass/volume] in Serum or Plasma 0.6 MG/DL 0.7 - 1.[address] [facility] BUN/CREAT 13 8 - 27 [facility] al Protein [Mass/volume] in Serum or Plasma 6.8 G/DL 6.3 - 8.2 [facility] Albumin [Mass/volume] in Serum or Plasma 4.5 G/DL 3.9 - 5.0 [facility] Globulin [Mass/volume] in Serum by calculation 2.3 GM/DL 2.4 - 3.[address] [facility] A/G RATIO 2.0 0.8 - 2.0 [facility] Calcium [Mass/volume] in Serum or Plasma 9.3 MG/DL 8.4 - 10.2 [facility] Bilirubin.total [Mass/volume] in Serum or Plasma <0.7 MG/DL 0.2 - 1.3 [facility] Alkaline phosphatase [Enzymatic activity/volume] in Serum or Plasma 89 U/L 38 - 126 [facility] Aspartate aminotransferase [Enzymatic activity/volume] in Serum or Plasma 16 U/L 5 - 40 [facility] Alanine aminotransferase [Enzymatic activity/volume] in Seru m or Plasma 7 U/L 7 - 56 [facility] Anion gap 3 in Serum or Plasma 10.0 mmol/L 8.0 - 16.0 [facility] AGE 35 yrs [facility] al NON-AA GFR >60 mL/min [facility] ital AFR AMER GFR >60 mL/min [facility] Ho spital Male GFR In terprentation [...] >32 mL/min Normal ID Date Data Source [id number] 11/17/2020 06:00:[address] [facility] Name Value Range Interpretation Code Description Data Kayleen rce(s) Supporting Document(s) Cobalamin (Vitamin B12) [Mass/volume] in Serum or Plasma 204 PG/ML 232 - [address] [facility] ID Date Data Source [id number] 11/17/2020 05:58:[address] [facility] Name Value Range Interpretation Code Description Data Kayleen rce(s) Supporting Document(s) Calcidiol [Moles/volume] in Serum or Plasma 19 NG/ML [facility] VITAMIN-D(2 5HYDROXY) Deficiency: <=20 ng/ml Insufficiency: 21-29 ng/ml Preferred level: => 30 ng/ml ID Date Data Source [id number] 11/17/2020 05:58:[address] [facility] Name Value Range Interpretation Code Description Data Kayleen rce(s) Supporting Document(s) Ferritin [Mass/volume] in Serum or Plasma 63.5 ng/mL 3.0 - 105 [facility] ID Date Data Source [id number] 11/17/2020 05:36:[address] [facility] Name Value Range Interpretation Code Description Data Kayleen rce(s) Supporting Document(s) Iron [Mass/volume] in Serum or Plasma 58 UG/DL 42 - 135 [facility] Iron binding capacity.unsaturated [Mass/volume] in Serum or Plasma 173 UG/DL 112 - 347 [facility] Iron binding capacity [Mass/volume] in Serum or Plasma 231 ug/dL 250 - [address] [facility] Iron saturation [Mass Fraction] in Serum or Plasma 25 % [facility] ID Date Data Source [id number] 11/17/2020 05:32:[address] [facility] Name Value Range Interpretation Code Description Data Kayleen rce(s) Supporting Document(s) CBC W/AUTOMATED DIFF [facility] COMPLETE BLOOD COUNT Leukocytes [#/volume] in Blood by Automated count 10.1 10^3/uL 4.2 - 11.0 [facility] Erythrocytes [#/volume] in Blood by Automated count 4.55 10^6/uL 4. 20 - 5.40 [facility] Hemoglobin [Mass/volume] in Blood 13.7 g/dL 12.0 - 16.0 [facility] Hematocrit [Volume Fraction] of Blood by Automated count 41.2 % 3 7.0 - 47.0 [facility] Erythrocyte mean corpuscular volume [Entitic volume] by Auto mated count 90.5 fL 81.0 - 101 [facility] Erythrocyte mean corpuscular hemoglobin [Entitic mass] by Automated count 30.1 pg 27.0 - 34.0 [facility] Erythrocyte mean corpuscular hemoglobin concentration [Mass/volume] by Automated count 33.3 g/dL 31.0 - 36.0 [facility] Erythrocyte distribution width [Ratio] by Automated count 15.1 % 11.5 - 14.[address] [facility] Platelets [#/volume] in Blood by Automated count 259 10^3/uL 150 - [address] [facility] Platelet mean volume [Entitic volume] in Blood by Automated count 9.1 fL 7.4 - 10.4 [facility] Neutrophils/100 leukocytes in Blood by Automated count 54.3 % 37. 0 - 80.0 [facility] Lymphocytes/100 leukocytes in Blood by Manual count 34.6 % 25.0 - 40.0 [facility] Monocytes/100 leukocytes in Blood by Automated count 7.5 % 3.0 - 8.0 [facility] Eosinophils/100 leukocytes in Blood by Automated count 2.8 % 0.0 - 7.0 [facility] Basophils/100 leukocytes in Blood by Automated count 0.4 % 0.0 - 2.5 [facility] %IG 0.4 % 0.0 - 0.0 [facility] %NRBC 0.0 % 0.0 - 0.0 [facility] al Neutrophils [#/volume] in Blood by Automated count 5.48 10^3/uL 2.00 - 6.90 [facility] Lymphocytes [#/volume] in Blood by Automated count 3.49 10^3/uL 0.60 - 3.[address] [facility] Monocytes [#/volume] in Blood by Automated count 0.76 10^3/uL 0.00 - 0.90 [facility] Eosinophils [#/volume] in Blood by Automated count 0.28 10^3/uL 0.00 - 0.70 [facility] Basophils [#/volume] in Blood by Automated count 0.04 10^3/uL 0.00 - 0.20 [facility] #IG 0.04 10^3/uL 0.00 - 0.10 [facility] ospital #NRBC 0.00 10^3/uL 0.00 - 0.00 [facility] H ospital MANUAL DIFF NOT INDICATED [facility] RBC MORPH NOT INDICATED [facility] Ho spital ID Date Data Source [id number] 11/09/2020 12:38:00 PM EDT [facility] ([facility]) Name Value Range Interpretation Code Description Data Kayleen rce(s) Supporting Document(s) Thyrotropin [Units/volume] in Serum or Plasma 0.34 uIU/mL 0. 47-5.01 Below low normal [facility] ([facility]) Thyroxine (T4) free [Mass/volume] in Serum or Plasma 1.27 ng/dL 0.93- 1.70 [facility] ([facility]) ID Date Data Source [id number] 11/09/2020 12:38:00 PM EDT [facility] ([facility] ) Name Value Range Interpretation Code Description Data Kayleen rce(s) Supporting Document(s) Thyroxine (T4) free [Mass/volume] in Serum or Plasma 1.27 ng/dL 0.93- 1.70 [facility] ([facility] ) Thyrotropin [Units/volume] in Serum or Plasma 0.34 uIU/mL 0.47-5.01 [facility] ([facility]) ID Date Data Source [id number] 11/09/2020 08:25:[address] [facility] Name Value Range Interpretation Code Description Data Kayleen rce(s) Supporting Document(s) Thyrotropin [Units/volume] in Serum or Plasma by Detec tion limit <= 0.05 mIU/L 0.34 uIU/mL 0.47 - 5.[address] [facility] ID Date Data Source [id number] 11/09/2020 01:42:[address] [facility] Name Value Range Interpretation Code Description Data Kayleen rce(s) Supporting Document(s) Thyroxine (T4) free index in Serum or Plasma by calculation 1.27 NG/DL 0.93 - 1.70 [facility] ID Date Data Source [id number] 09/25/2020 03:37:00 PM EDT [facility] ([facility]) Name Value Range Interpretation Code Description Data Kayleen rce(s) Supporting Document(s) Coronavirus Covid-19 Laboratory test result [facility] ([facility]) This nucleic acid amplification test was developed and its performance characteristics determined by [email or web address]. Nucleic acid amplification tests include RT-PCR and [...] in this assay. ID Date Data Source [id number] 09/25/2020 03:37:00 PM EDT [facility] ([facility]) Name Value Range Interpretation Code Description Data Kayleen rce(s) Supporting Document(s) Influenza virus B RNA [Presence] in Unsp ecified specimen by Probe and target amplification method Laboratory test result [facility] ([facility]) Influenza virus A RNA [Presence] in Unsp ecified specimen by Probe and target amplification method Laboratory test result [facility] ([facility]) ID Date Data Source [id number] 09/25/2020 03:37:00 PM EDT [facility] Name Value Range Interpretation Code Description Data Kayleen rce(s) Supporting Document(s) SARS coronavirus 2 RNA Not Detected [facility] This lab was ordered by [facility] Eric ceballos and reported by [employer]. ID Date Data Source [id number] 09/28/2020 03:20:[address] [facility] Name Value Range Interpretation Code Description Data Kayleen rce(s) Supporting Document(s) SARS-CoV-2, TRACEY Not Detected Not Detected [facility] This nucleic acid amplification test was developed and its performancecharacteristics determined by [email or web address]. Nucleic acidamplification tests include RT-PCR and TMA. [...] in this assay. ID Date Data Source [id number] 09/03/2020 03:43:00 PM EDT [facility] ([facility]) Name Value Range Interpretation Code Description Data Kayleen rce(s) Supporting Document(s) Sars-CoV-2, Tracey Laboratory test result [facility] ([facility]) This nucleic acid amplification test was developed and its performance characteristics determined by [email or web address]. Nucleic acid amplification tests include RT-PCR and [...] finding (navigational concept) Laboratory test result [facility] ([facility]) ID Date Data Source [id number] 09/03/2020 03:43:00 PM EDT [facility] Name Value Range Interpretation Code Description Data Kayleen rce(s) Supporting Document(s) SARS coronavirus 2 RNA Not Detected [facility] This lab was ordered by [facility] lin and reported by [employer]. ID Date Data Source [id number] 09/06/2020 07:21:[address] [facility] Name Value Range Interpretation Code Description Data Kayleen rce(s) Supporting Document(s) SARS-CoV-2, TRACEY Not Detected Not Detected [facility] This nucleic acid amplification test was developed and its performancecharacteristics determined by [email or web address]. Nucleic acidamplification tests include RT-PCR and TMA. [...] assay. SARS-CoV-2, TRACEY 2 DAY TAT Performed [facility] ID Date Data Source [id number] 09/03/2020 03:43:00 PM EDT [facility] ([facility]) Name Value Range Interpretation Code Description Data Kayleen rce(s) Supporting Document(s) Covid-19 Laboratory test result [facility] ([facility]) ID Date Data Source [id number] 07/31/2020 01:04:00 PM EST [facility] ([facility]) Name Value Range Interpretation Code Description Data Kayleen rce(s) Supporting Document(s) [place] [Mass/volume] in Serum or Plasma 0.5 mmol/L 0.6-1.2 Below low normal [facility] ([facility]) <content>Detection Limit = 0.1</content>
<content><0.1 indicates None Detected</content>
<content></content> ID Date Data Source [id number] 07/31/2020 01:04:00 PM EST [facility] ([facility]) Name Value Range Interpretation Code Description Data Kayleen rce(s) Supporting Document(s) Cholesterol 218 mg/dL 131-200 Above high normal [facility] ([facility]) Is patient fasting? N Cve Panel Laboratory test result [facility] ([facility]) LIPID PANEL Triglycerides 89 mg/dL 35-160 [facility] ([facility]) Is patient fasting? N HDL 51 mg/dL 29-86 [facility] ([facility]) Is patient fasting? N LDL 170 mg/dL 65-175 [facility] ([facility]) Is patient fasting? N Risk Factor 4.3 3.2-4.4 [facility] ([facility]) Is patient fasting? N LDL/HDL 3.33 1.47-3.22 Above high normal [facility] ([facility]) CVE RISK CHOL/HDL LDL/HDL MEN: 1/2 AVERAGE 3.43 1.00 AVERAGE 4.97 3.55 2X AVERAGE 9.55 6.25 3X AVERAGE 23.99 7.99 WOMEN: 1/2 AVERAGE 3.27 1.47 AVERAGE 4.44 3.22 2X AVERAGE 7.05 5.03 3X AVERAGE 11.04 6.14 ID Date Data Source [id number] 07/31/2020 01:04:00 PM EST [facility] ([facility]) Name Value Range Interpretation Code Description Data Kayleen rce(s) Supporting Document(s) Hemoglobin A1c/Hemoglobin.total in Blood 5.1 % 4.4-6.1 [facility] ([facility]) {A1] {HB] ID Date Data Source [id number] 07/31/2020 01:04:00 PM EST [facility] ([facility]) Name Value Range Interpretation Code Description Data Kayleen rce(s) Supporting Document(s) Comprehensive [employer] Laboratory test result [facility] ([facility]) COMPREHENSIVE METABOLIC PANEL Sodium 139 meq/L 134-153 [facility] ([facility]) Is patient fasting? N Potassium 4.1 meq/L 3.6-5.0 [facility] ([facility]) Is patient fasting? N Chloride 105 meq/L 98-107 [facility] ([facility]) Is patient fasting? N Co2 26 meq/L 22-30 [facility] ([facility]) Is patient fasting? N Glucose 99 mg/dL 70-99 [facility] ([facility]) Is patient fasting? N BUN 13 mg/dL 7-21 [facility] ([facility]) Is patient fasting? N Creatinine 0.6 mg/dL 0.7-1.5 Below low normal [facility] ( [facility]) Is patient fasting? N Total Protein 6.7 g/dL 6.3-8.2 [facility] Is patient fasting? N BUN/Creat 22 8-27 [facility] ([facility]) Is patient fasting? N Albumin 4.4 g/dL 3.9-5.0 [facility] ([facility]) Is patient fasting? N Globulin 2.3 GM/DL 2.4-3.2 Below low normal [facility] ( [facility]) Is patient fasting? N A/G Ratio 1.9 0.8-2.0 [facility] ([facility]) Is patient fasting? N Calcium 9.1 mg/dL 8.4-10.2 [facility] ([facility]) Is patient fasting? N Total Bili Laboratory test result 0.2-1.3 [facility] ([facility]) Is patient fasting? N Alkaline Phos 67 U/L 38-126 [facility] ([facility]) Is patient fasting? N Sgot/Ast 12 U/L 5-40 [facility] ([facility]) Is patient fasting? N Anion Gap 8.0 mmol/L 8.0-16.0 [facility] ([facility]) Is patient fasting? N SGPT/Alt 10 U/L 7-56 [facility] ([facility]) Is patient fasting? N Age 35 yrs [facility] ([facility]) Is patient fasting? N Non-Aa GFR Laboratory test result [facility] ([facility]) Is patient fasting? N Afr Amer GFR Laboratory test result [facility] ([facility]) Male GFR Interprentation 20-49 yrs >60 mL/min [...] >32 mL/min Normal ID Date Data Source [id number] 07/31/2020 01:04:00 PM EST [facility] ([facility]) Name Value Range Interpretation Code Description Data Kayleen rce(s) Supporting Document(s) CBC W/Automated Diff Laboratory test result [facility] ([facility]) COMPLETE BLOOD COUNT WBC 11.1 10^3/uL 4.2-11.0 Above high normal [facility] ([facility]) Is patient fasting? N RBC 4.52 10^6/uL 4.20-5.40 [facility] ([facility]) Is patient fasting? N Hemoglobin 13.5 g/dL 12.0-16.0 [facility] ([facility]) Is patient fasting? N Hematocrit 40.8 % 37.0-47.0 [facility] ([facility]) Is patient fasting? N MCV 90.3 fL 81.0-101 [facility] ([facility]) Is patient fasting? N MCH 29.9 pg 27.0-34.0 [facility] ([facility]) Is patient fasting? N RDW 13.1 % 11.5-14.5 [facility] ([facility]) Is patient fasting? N MCHC 33.1 g/dL 31.0-36.0 [facility] ([facility]) Is patient fasting? N Platelets 239 10^3/uL 150-450 [facility] ([facility]) Is patient fasting? N MPV 8.3 fL 7.4-10.4 [facility] ([facility]) Is patient fasting? N Neut 49.1 % 37.0-80.0 [facility] ([facility]) Is patient fasting? N Lymph 40.2 % 25.0-40.0 Above high normal [facility] ([facility]) Is patient fasting? N Eos 2.8 % 0.0-7.0 [facility] ([facility]) Is patient fasting? N [place] 7.2 % 3.0-8.0 [facility] ([facility]) Is patient fasting? N Baso 0.5 % 0.0-2.5 [facility] ([facility]) Is patient fasting? N %Ig 0.2 % 0.0-0.0 Above high normal [facility] ([facility]) Is patient fasting? N %NRBC 0.0 % 0.0-0.0 [facility] ([facility]) Is patient fasting? N #Lymph 4.46 10^3/uL 0.60-3.40 Above high normal [facility] ([facility]) Is patient fasting? N #Neut 5.46 10^3/uL 2.00-6.90 [facility] ([facility]) Is patient fasting? N #[place] 0.80 10^3/uL 0.00-0.90 [facility] ([facility]) Is patient fasting? N #Baso 0.05 10^3/uL 0.00-0.20 [facility] ([facility]) Is patient fasting? N #Eos 0.31 10^3/uL 0.00-0.70 [facility] ([facility]) Is patient fasting? N #Ig 0.02 10^3/uL 0.00-0.10 [facility] ([facility]) Is patient fasting? N #NRBC 0.00 10^3/uL 0.00-0.00 [facility] ([facility]) Is patient fasting? N Manual Diff Laboratory test result [facility] ([facility]) Is patient fasting? N RBC Morph Laboratory test result [facility] ([facility]) Is patient fasting? N ID Date Data Source [id number] 08/01/2020 04:29:[address] [facility] Name Value Range Interpretation Code Description Data Kayleen rce(s) Supporting Document(s) [place] [Moles/volume] in Serum or Plasma 0.5 mmol/L 0.6-1.[address] [facility] Detection Limit = 0.1 <0.1 indicates None Detected ID Date Data Source [id number] 07/31/2020 02:11:[address] [facility] Name Value Range Interpretation Code Description Data Kayleen rce(s) Supporting Document(s) CVE PANEL [facility] al LIPID PANEL Cholesterol [Mass/volume] in Serum or Plasma 218 MG/DL 131 - [address] [facility] Deprecated Triglyceride [Mass/volume] in Serum or Plasma 89 MG/DL 3 5 - 160 [facility] HDL 51 MG/DL 29 - 86 [facility] Cholesterol in LDL [Mass/volume] in Serum or Plasma by Direc t assay 170 mg/dL 65 - 175 [facility] Cholesterol.total/Cholesterol in HDL [Mass Ratio] in Serum o r Plasma 4.3 3.2 - 4.4 [facility] LDL/HDL 3.33 1.47 - 3.22 H [facility] ital CVE RISK CHOL/HDL LDL/HDLMEN: 1/2 AVERAGE 3.43 1.00 AVERAGE 4.97 3.55 2X AVERAGE 9.55 6.25 3X AVERAGE 23.99 7.99WOMEN: 1/2 AVERAGE 3.27 1.47 AVERAGE 4.44 3.22 2X AVERAGE 7.05 5.03 3X AVERAGE 11.04 6.14 ID Date Data Source [id number] 07/31/2020 02:11:[address] [facility] Name Value Range Interpretation Code Description Data Kayleen rce(s) Supporting Document(s) COMPREHENSIVE METABOLIC PANEL [facility] COMPREHENSIVE METABOLIC PANEL Sodium [Moles/volume] in Serum or Plasma 139 mEq/L 134 - 153 [facility] Potassium [Moles/volume] in Serum or Plasma 4.1 mEq/L 3.6 - 5.0 [facility] Chloride [Moles/volume] in Serum or Plasma 105 mEq/L 98 - 107 [facility] Carbon dioxide, total [Moles/volume] in Serum or Plasma 26 MEQ/L 22 - 30 [facility] Glucose [Mass/volume] in Serum or Plasma 99 MG/DL 70 - 99 [facility] BUN 13 MG/DL 7 - 21 [facility] Creatinine [Mass/volume] in Serum or Plasma 0.6 MG/DL 0.7 - 1.[address] [facility] BUN/CREAT 22 8 - 27 [facility] Protein [Mass/volume] in Serum or Plasma 6.7 G/DL 6.3 - 8.2 [facility] Albumin [Mass/volume] in Serum or Plasma 4.4 G/DL 3.9 - 5.0 [facility] Globulin [Mass/volume] in Serum by calculation 2.3 GM/DL 2.4 - 3.[address] [facility] A/G RATIO 1.9 0.8 - 2.0 [facility] Calcium [Mass/volume] in Serum or Plasma 9.1 MG/DL 8.4 - 10.2 [facility] Bilirubin.total [Mass/volume] in Serum or Plasma <0.7 MG/DL 0.2 - 1.3 [facility] Alkaline phosphatase [Enzymatic activity/volume] in Serum or Plasma 67 U/L 38 - 126 [facility] Aspartate aminotransferase [Enzymatic activity/volume] in Serum or Plasma 12 U/L 5 - 40 [facility] Alanine aminotransferase [Enzymatic activity/volume] in Seru m or Plasma 10 U/L 7 - 56 [facility] Anion gap 3 in Serum or Plasma 8.0 mmol/L 8.0 - 16.0 [facility] AGE 35 yrs [facility] NON-AA GFR >60 mL/min [facility] ital AFR AMER GFR >60 mL/min [facility] Ho spital Male GFR In terprentation [...] >32 mL/min Normal ID Date Data Source [id number] 07/31/2020 01:43:00 PM [facility] Name Value Range Interpretation Code Description Data Kayleen rce(s) Supporting Document(s) Hemoglobin A1c/Hemoglobin.total in Blood 5.1 % 4.4 - 6.1 [facility] {A1]{HB] ID Date Data Source [id number] 07/31/2020 01:22:00 PM [facility] Name Value Range Interpretation Code Description Data Kayleen rce(s) Supporting Document(s) CBC W/AUTOMATED DIFF [facility] COMPLETE BLOOD COUNT Leukocytes [#/volume] in Blood by Automated count 11.1 10^3/uL 4.2 - 11.[address] [facility] Erythrocytes [#/volume] in Blood by Automated count 4.52 10^6/uL 4. 20 - 5.40 [facility] Hemoglobin [Mass/volume] in Blood 13.5 g/dL 12.0 - 16.0 [facility] Hematocrit [Volume Fraction] of Blood by Automated count 40.8 % 3 7.0 - 47.0 [facility] Erythrocyte mean corpuscular volume [Entitic volume] by Auto mated count 90.3 fL 81.0 - 101 [facility] Erythrocyte mean corpuscular hemoglobin [Entitic mass] by Automated count 29.9 pg 27.0 - 34.0 [facility] Erythrocyte mean corpuscular hemoglobin concentration [Mass/volume] by Automated count 33.1 g/dL 31.0 - 36.0 [facility] Erythrocyte distribution width [Ratio] by Automated count 13.1 % 11.5 - 14.5 [facility] Platelets [#/volume] in Blood by Automated count 239 10^3/uL 150 - [address] [facility] Platelet mean volume [Entitic volume] in Blood by Automated count 8.3 fL 7.4 - 10.4 [facility] Neutrophils/100 leukocytes in Blood by Automated count 49.1 % 37. 0 - 80.0 [facility] Lymphocytes/100 leukocytes in Blood by Manual count 40.2 % 25.0 - 40.[address] [facility] Monocytes/100 leukocytes in Blood by Automated count 7.2 % 3.0 - 8.0 [facility] Eosinophils/100 leukocytes in Blood by Automated count 2.8 % 0.0 - 7.0 [facility] Basophils/100 leukocytes in Blood by Automated count 0.5 % 0.0 - 2.5 [facility] %IG 0.2 % 0[facility]0 - [facility] 0.0 % 0.0 - 0.0 [facility] al Neutrophils [#/volume] in Blood by Automated count 5.46 10^3/uL 2.00 - 6.90 [facility] Lymphocytes [#/volume] in Blood by Automated count 4.46 10^3/uL 0.60 - 3.[address] [facility] Monocytes [#/volume] in Blood by Automated count 0.80 10^3/uL 0.00 - 0.90 [facility] Eosinophils [#/volume] in Blood by Automated count 0.31 10^3/uL 0.00 - 0.70 [facility] Basophils [#/volume] in Blood by Automated count 0.05 10^3/uL 0.00 - 0.20 [facility] #IG 0.02 10^3/uL 0.00 - 0.10 [facility] ospital #NRBC 0.00 10^3/uL 0.00 - 0.00 [facility] ospital MANUAL DIFF NOT INDICATED [facility] RBC MORPH NOT INDICATED [facility] spital ID Date Data Source [id number] 07/14/2020 03:36:00 PM EST [facility] ([facility]) Name Value Range Interpretation Code Description Data Kayleen rce(s) Supporting Document(s) Ferritin [Mass/volume] in Serum or Plasma 66 ng/mL 8-252 Normal (applies to non- numeric results) [facility] ([facility]) <content>note:<nlbl:demographic_changed> </content>
<content></content> ID Date Data Source [id number] 07/14/2020 03:36:00 PM EST [facility] ([facility]) Name Value Range Interpretation Code Description Data Kayleen rce(s) Supporting Document(s) Iron (Fe) 34 ug/dL 50-170 Below low normal [facility] ( [facility]) Percent Saturation 13.1 % 13.2-45.0 Below low normal [facility] Total Iron Binding Capacity 259 ug/dL 250-450 Norm al (applies to non-numeric results) [facility] ([facility]) ID Date Data Source [id number] 07/14/2020 03:36:00 PM EST [facility] ([facility]) Name Value Range Interpretation Code Description Data Kayleen rce(s) Supporting Document(s) Red Blood Count 4.42 10 4.00-5.40 Normal (applies to non-numeric results) [facility] ([facility]) White Blood Count 14.5 10 4.0-10.0 Above high normal [facility] ([facility]) Hematocrit 41.2 % 36.0-47.0 Normal (applies to non-numeric resul ts) [facility] ([facility]) Hemoglobin 13.2 g/dL 12.0-15.5 Normal (applies to non-numeric resul ts) [facility] ([facility]) Mean Corpuscular Volume 93.2 fl 80.0-96.0 Normal ( applies to non-numeric results) [facility] Mean Corpuscular Hemoglobin 29.9 pg 27.0-33.0 Norm al (applies to non-numeric results) [facility] Mean Corpuscular HGB Conc 32.0 g/dL 32.0-36.5 Normal (applies to non-numeric results) [facility] ([facility]) Red Cell Distribution Width 13.0 % 11.5-14.5 Norm al (applies to non-numeric results) [facility] ([facility]) Platelet Count, Automated 274 10 150-450 Normal (applies to non-numeric results) [facility] ([facility]) Lymph % 28.4 % 24.0-44.0 Normal (applies to non-numeric resul ts) [facility] ([facility]) Neutrophils % 63.4 % 36.0-66.0 Normal (applies to non-numeric re sults) [facility] ([facility]) Eos % 2.2 % 0.0-3.0 Normal (applies to non-numeric resul ts) [facility] ([facility]) [place]anan % 5.3 % 0.0-5.0 Above high normal [facility] ([facility]) Baso % 0.3 % 0.0-1.0 Normal (applies to non-numeric resul ts) [facility] ([facility]) Immature Granulocyte % 0.4 % 0-3.0 Normal (applies to non-n umeric results) [facility] ([facility]) Nucleated Red Blood Cell % 0.0 % 0-0 Normal (applies to n on-numeric results) [facility] ([facility]) Neutrophils # 9.2 10 1.5-8.5 Above high normal [facility] ([facility]) Lymph # 4.1 10 1.5-5.0 Normal (applies to non-numeric resul ts) [facility] ([facility]) [place]anan # 0.8 10 0.0-0.8 Normal (applies to non-numeric resul ts) [facility] ([facility]) Eos # 0.3 10 0.0-0.5 Normal (applies to non-numeric resul ts) [facility] ([facility]) Baso # 0.1 10 0.0-0.2 Normal (applies to non-numeric resul ts) [facility] ([facility]) ID Date Data Source [id number] 06/30/2020 01:03:00 PM EST [facility] ([facility]) Name Value Range Interpretation Code Description Data Kayleen rce(s) Supporting Document(s) Sars-CoV-2, Tracey Laboratory test result [facility] ([facility]) This nucleic acid amplification test was developed and its performance characteristics determined by [email or web address]. Nucleic acid amplification tests include RT-PCR and [...] finding (navigational concept) Laboratory test result [facility] ([facility]) ID Date Data Source [id number] 06/30/2020 01:03:00 PM EST [facility] Name Value Range Interpretation Code Description Data [facility](s) Supporting Document(s) SARS coronavirus 2 RNA Not Detected [facility] This lab was ordered by [facility] lin and reported by [employer]. ID Date Data Source [id number] 07/02/2020 05:20:[address] [facility] Name Value Range Interpretation Code Description Data [facility] Supporting Document(s) SARS-CoV-2, TRACEY Not Detected Not Detected [facility] This nucleic acid amplification test was developed and its performancecharacteristics determined by [email or web address]. Nucleic acidamplification tests include RT-PCR and TMA. [...] assay. ORDER COVID [address] [facility] ID Date Data Source [id number] 06/30/2020 01:03:00 PM EST [facility] ([facility]) Name Value Range Interpretation Code Description Data Kayleen rce(s) Supporting Document(s) Laboratory test finding (navigational concept) Laboratory test result [facility] ([facility]) ID Date Data Source [id number] 05/25/2020 03:55:00 PM EST [facility] ([facility]) Name Value Range Interpretation Code Description Data Kayleen rce(s) Supporting Document(s) PDF Laboratory test result [facility] ([facility]) {DIAGNOSIS: F12.20~{MEDICATIONS/DECLARE D: IBUPROFEN, LITHIUM, MAXALT~{PRESCRIPTION INFO: PROPR Laboratory test finding (navigational concept) Laboratory test result [facility] ([facility]) {DIAGNOSIS: F12.20~{MEDICATIONS/DECLARE D: IBUPROFEN, LITHIUM, MAXALT~{PRESCRIPTION INFO: PROPR ID Date Data Source [id number] 05/31/2020 12:10:00 PM [facility] Name Value Range Interpretation Code Description Data Kayleen rce(s) Supporting Document(s) Drugs identified in Urine FINAL [facility] TOXASSURE SELECT 13 (MW) Test Result Flag [...] include following reported medications: Cariprazine (Vraylar) Ibuprofen [place] Propranolol Rizatriptan (Maxalt) For clinical consultation, please call . Report . [facility] ID Date Data Source [id number] 03/31/2020 11:46:00 AM EDT [facility] ([facility]) Name Value Range Interpretation Code Description Data Kayleen rce(s) Supporting Document(s) Thyrotropin [Units/volume] in Serum or Plasma 0.44 uIU/mL 0. 47-5.01 Below low normal [facility] ([facility]) Thyroxine (T4) free [Mass/volume] in Serum or Plasma 1.72 ng/dL 0.93-1.70 Above high normal [facility] ([facility]) Triiodothyronine (T3) [Mass/volume] in Serum or Plasma 130 ng/dL 71- 180 [facility] ([facility]) Thyrotropin receptor Ab [Units/volume] in Serum Laboratory t est result 0.00-1.75 [facility] ([facility]) Thyroid stimulating immunoglobulins actual/normal in S denzel Laboratory test result 0.00-0.55 [facility] ([facility]) ID Date Data Source [id number] 03/31/2020 11:46:00 AM EDT [facility] ([facility] ) Name Value Range Interpretation Code Description Data Kayleen rce(s) Supporting Document(s) Triiodothyronine (T3) [Mass/volume] in Serum or Plasma 130 ng/dL 71- 180 [facility] ([facility] ) Thyrotropin [Units/volume] in Serum or Plasma 0.44 uIU/mL 0.47-5.01 [facility] ([facility]) Thyroxine (T4) free [Mass/volume] in Serum or Plasma 1.72 ng/dL 0.93- 1.70 [facility] ([facility]) Thyrotropin receptor Ab [Units/volume] in Serum Laboratory t est result 0.00-1.75 [facility] ([facility]) Thyroid-Stimulating Immunoglobulin (Tsi) Laboratory test result 0.00- 0.55 [facility] ([facility]) ID Date Data Source [id number] 04/04/2020 01:58:[address] [facility] Name Value Range Interpretation Code Description Data Kayleen rce(s) Supporting Document(s) Thyrotropin receptor Ab [Units/volume] in Serum <1.10 IU/L 0.00-1.75 [facility] ID Date Data Source [id number] 04/02/2020 07:36:00 AM EDT [facility] Value Range Interpretation Code Description Data Kayleen rce(s) Supporting Document(s) Thyroid stimulating immunoglobulins [Units/volume] in Serum <0.10 IU/L 0.00-0.55 [facility] ID Date Data Source [id number] 04/01/2020 08:27:00 AM EDT [facility] Value Range Interpretation Code Description Data Kayleen rce(s) Supporting Document(s) Triiodothyronine (T3) [Mass/volume] in Serum or Plasma 130 ng/dL 71- 180 [facility] ID Date Data Source [id number] 03/31/2020 12:36:00 PM EDT [facility] Value Range Interpretation Code Description Data Kayleen rce(s) Supporting Document(s) Thyroxine (T4) free index in Serum or Plasma by calculation 1.72 NG/DL 0.93 - 1.[address] [facility] ID Date Data Source [id number] 03/31/2020 12:36:00 PM EDT [facility] Value Range Interpretation Code Description Data Kayleen rce(s) Supporting Document(s) Thyrotropin [Units/volume] in Serum or Plasma by Detec tion limit <= 0.05 mIU/L 0.44 uIU/mL 0.47 - 5.[address] [facility] ID Date Data Source [id number] 03/17/2020 02:00:00 PM EDT [facility] ([facility]) Name Value Range Interpretation Code Description Data Kayleen rce(s) Supporting Document(s) Thyrotropin [Units/volume] in Serum or Plasma 0.26 uIU/mL 0. 47-5.01 Below low normal [facility] ([facility]) Thyroxine (T4) free [Mass/volume] in Serum or Plasma 1.73 ng/dL 0.93-1.70 Above high normal [facility] ([facility]) Thyroid stimulating immunoglobulins actual/normal in S denzel Laboratory test result 0.00-0.55 [facility] ([facility]) ID Date Data Source [id number] 03/17/2020 02:00:00 PM EDT [facility] ([facility]) Name Value Range Interpretation Code Description Data Kayleen rce(s) Supporting Document(s) Thyrotropin [Units/volume] in Serum or Plasma 0.26 uIU/mL 0.47-5.01 [facility] ([facility]) Thyroid-Stimulating Immunoglobulin (Tsi) Laboratory test result 0.00- 0.55 [facility] ([facility]) Thyroxine (T4) free [Mass/volume] in Serum or Plasma 1.73 ng/dL 0.93- 1.70 [facility] ([facility]) ID Date Data Source [id number] 03/20/2020 01:50:00 PM EDT [facility] Value Range Interpretation Code Description Data Kayleen rce(s) Supporting Document(s) Thyroid stimulating immunoglobulins [Units/volume] in Serum <0.10 IU/L 0.00-0.55 [facility] ID Date Data Source [id number] 03/17/2020 03:05:[address] [facility] Name Value Range Interpretation Code Description Data Kayleen rce(s) Supporting Document(s) Thyroxine (T4) free index in Serum or Plasma by calculation 1.73 NG/DL 0.93 - 1.[address] [facility] ID Date Data Source [id number] 03/17/2020 03:05:00 PM EDT [facility] Value Range Interpretation Code Description Data Kayleen rce(s) Supporting Document(s) Thyrotropin [Units/volume] in Serum or Plasma by Detec tion limit <= 0.05 mIU/L 0.26 uIU/mL 0.47 - 5.[address] [facility] ID Date Data Source [id number] 02/24/2020 01:33:00 PM EDT [facility] ([facility]) Name Value Range Interpretation Code Description Data Kayleen rce(s) Supporting Document(s) Thyrotropin [Units/volume] in Serum or Plasma 0.11 uIU/mL 0. 47-5.01 Below low normal [facility] ([facility]) Thyroxine (T4) free [Mass/volume] in Serum or Plasma 1.52 ng/dL 0.93- 1.70 [facility] ([facility]) Cobalamin (Vitamin B12) [Mass/volume] in Serum or Plasma 299 pg/mL 2 32-1245 [facility] ([facility]) ID Date Data Source [id number] 02/24/2020 01:33:00 PM EDT [facility] ([facility]) Name Value Range Interpretation Code Description Data Kayleen rce(s) Supporting Document(s) Uibc 162 ug/dL 112-347 [facility] ([facility]) Tibc 211 ug/dL 250-450 Below low normal [facility] ( [facility]) Iron 49 ug/dL 42-135 [facility] ([facility]) Iron Sat 23 % [facility] ([facility]) ID Date Data Source [id number] 02/24/2020 01:33:00 PM EDT [facility] ([facility]) Name Value Range Interpretation Code Description Data Kayleen rce(s) Supporting Document(s) Ferritin [Mass/volume] in Serum or Plasma 198.7 ng/mL 3.0-105 Above high normal [facility] ([facility]) ID Date Data Source [id number] 02/24/2020 05:37:00 PM EDT [facility] Value Range Interpretation Code Description Data Kayleen rce(s) Supporting Document(s) Cobalamin (Vitamin B12) [Mass/volume] in Serum or Plasma 299 PG/ML 232 - 1245 [facility] ID Date Data Source [id number] 02/24/2020 05:37:00 PM EDT [facility] Value Range Interpretation Code Description Data Kayleen rce(s) Supporting Document(s) Thyroxine (T4) free index in Serum or Plasma by calculation 1.52 NG/DL 0.93 - 1.70 [facility] ID Date Data Source [id number] 02/24/2020 05:37:00 PM EDT [facility] Value Range Interpretation Code Description Data Kayleen rce(s) Supporting Document(s) Thyrotropin [Units/volume] in Serum or Plasma by Detec tion limit <= 0.05 mIU/L 0.11 uIU/mL 0.47 - 5.[address] [facility] ID Date Data Source [id number] 02/24/2020 05:36:[address] [facility] Name Value Range Interpretation Code Description Data Kayleen rce(s) Supporting Document(s) Ferritin [Mass/volume] in Serum or Plasma 198.7 ng/mL 3.0 - [address] [facility] ID Date Data Source [id number] 02/24/2020 05:27:[address] [facility] Name Value Range Interpretation Code Description Data Kayleen rce(s) Supporting Document(s) Iron [Mass/volume] in Serum or Plasma 49 UG/DL 42 - 135 [facility] Iron binding capacity.unsaturated [Mass/volume] in Serum or Plasma 162 UG/DL 112 - 347 [facility] Iron binding capacity [Mass/volume] in Serum or Plasma 211 ug/dL 250 - [address] [facility] Iron saturation [Mass Fraction] in Serum or Plasma 23 % [facility] Procedure Social History Code Duration Value Status Description Data Source(s ) Smoking 11/12/2020 12:00:00 AM EDT Patient is a former smoker completed Patient is a former smoker [facility] ([facility]) Vital Signs ID Date Data Source UNK Name Value Range Interpretation Code Description Data Source(s) Diastolic blood pressure 82 mm[Hg] 82 mm[Hg] [facility] ([facility]) Respiratory rate 16 /min 16 /min [facility] ( [facility]) Systolic blood pressure 128 mm[Hg] 128 mm[Hg] M [facility] ([facility]) Body height 61 [in_i] 61 [in_i] [facility] ([facility]) 5'1" Oxygen saturation in Arterial blood by Pulse oximetry 93 % 93 % [facility] ([facility]) Body weight 67.133 kg 67.133 kg [facility] ([facility]) Body mass index (BMI) [Ratio] 28.0 kg/m2 28.0 k g/m2 [facility] ([facility]) Body surface area Derived from formula 1.66 m2 1.66 m2 [facility] ([facility]) Heart rate 88 /min 88 /min [facility] ([facility]) Body temperature 97.3 [degF] 97.3 [degF] [facility] ([facility]) Respiratory rate 18 /min 18 /min [facility] ( [facility]) Body weight 148.00 [lb_av] 148.00 [lb_av] [facility] T ([facility]) Diastolic blood pressure 72 mm[Hg] 72 mm[Hg] [facility] ([facility]) Systolic blood pressure 134 mm[Hg] 134 mm[Hg] [facility] Oxygen saturation in Arterial blood by Pulse oximetry 100 % 100 % [facility] ([facility]) Systolic blood pressure 112 mm[Hg] 112 mm[Hg] [facility] ([facility]) Diastolic blood pressure 71 mm[Hg] 71 mm[Hg] [facility] ([facility]) Heart rate 100 /min 100 /min [facility] ([facility]) Body temperature 98.0 [degF] 98.0 [degF] [facility] Systolic blood pressure 128 mm[Hg] 128 mm[Hg] [facility] Respiratory rate 18 /min 18 /min [facility] ( [facility]) Oxygen saturation in Arterial blood by Pulse oximetry 99 % 99 % [facility] ([facility]) Diastolic blood pressure 82 mm[Hg] 82 mm[Hg] [facility] ([facility]) Heart rate 94 /min 94 /min [facility] ([facility]) Body temperature 98.4 [degF] 98.4 [degF] [facility] ([facility]) Body temperature 99.1 [degF] 99.1 [degF] [facility] ([facility]) Heart rate 101 /min 101 /min [facility] ([facility]) Oxygen saturation in Arterial blood by Pulse oximetry 96 % 96 % [facility] ([facility]) Body mass index (BMI) [Ratio] 30.0 kg/m2 30.0 k g/m2 [facility] ([facility]) Body surface area Derived from formula 1.71 m2 1.71 m2 [facility] ([facility]) Body height 61 [in_i] 61 [in_i] [facility] ([facility]) 5'1" Heart rate 83 /min 83 /min [facility] ([facility]) Body temperature 96.2 [degF] 96.2 [degF] [facility] ([facility]) Body weight 72.122 kg 72.122 kg [facility] ([facility]) Systolic blood pressure 102 mm[Hg] 102 mm[Hg] M [facility] ([facility]) Diastolic blood pressure 60 mm[Hg] 60 mm[Hg] [facility] ([facility]) Respiratory rate 14 /min 14 /min [facility] ( [facility]) Oxygen saturation in Arterial blood by Pulse oximetry 95 % 95 % [facility] ([facility]) Body weight 159.00 [lb_av] 159.00 [lb_av] [facility] Oxygen saturation in Arterial blood by Pulse oximetry 98 % 98 % [facility] ([facility]) Diastolic blood pressure 60 mm[Hg] 60 mm[Hg] [facility] ([facility]) Heart rate 64 /min 64 /min [facility] ([facility]) Body temperature 97.3 [degF] 97.3 [degF] [facility] ([facility]) Body height 61 [in_i] 61 [in_i] [facility] ([facility]) 5'1" Body weight 158.44 [lb_av] 158.44 [lb_av] [facility] Body mass index (BMI) [Ratio] 29.9 kg/m2 29.9 k g/m2 [facility] ([facility]) Systolic blood pressure 120 mm[Hg] 120 mm[Hg] [facility] ([facility]) Oxygen saturation in Arterial blood by Pulse oximetry 96 % 96 % [facility] ([facility]) Systolic blood pressure 102 mm[Hg] 102 mm[Hg] [facility] ([facility]) Diastolic blood pressure 62 mm[Hg] 62 mm[Hg] [facility] ([facility]) Heart rate 102 /min 102 /min [facility]) Body temperature 99.2 [degF] 99.2 [degF] [facility] ([facility]) Systolic blood pressure 123 mm[Hg] 123 mm[Hg] [facility] Diastolic blood pressure 73 mm[Hg] 73 mm[Hg] [facility] ([facility]) Heart rate 100 /min 100 /min [facility] ([facility]) Body temperature 98.2 [degF] 98.2 [degF] [facility] ([facility]) Respiratory rate 16 /min 16 /min [facility] ( [facility]) Oxygen saturation in Arterial blood by Pulse oximetry 98 % 98 % [facility] ([facility]) Systolic blood pressure 102 mm[Hg] 102 mm[Hg] M [facility] ([facility]) Diastolic blood pressure 76 mm[Hg] 76 mm[Hg] [facility] ([facility]) Heart rate 107 /min 107 /min [facility] ([facility]) Body temperature 98.8 [degF] 98.8 [degF] [facility] ([facility]) Oxygen saturation in Arterial blood by Pulse oximetry 96 % 96 % [facility] ([facility]) Body temperature 98.6 [degF] 98.6 [degF] [facility] ([facility]) Oxygen saturation in Arterial blood by Pulse oximetry 96 % 96 % [facility] ([facility]) Systolic blood pressure 102 mm[Hg] 102 mm[Hg] [facility] Diastolic blood pressure 80 mm[Hg] 80 mm[Hg] [facility] ([facility]) Heart rate 87 /min 87 /min [facility] ([facility]) Heart rate 113 /min 113 /min [facility] ([facility]) Body temperature 98.9 [degF] 98.9 [degF] [facility] ([facility]) Oxygen saturation in Arterial blood by Pulse oximetry 98 % 98 % [facility] ([facility]) Body weight 155.00 [lb_av] 155.00 [lb_av] [facility] T ([facility]) Systolic blood pressure 90 mm[Hg] 90 mm[Hg] [facility] Oxygen saturation in Arterial blood by Pulse oximetry 98 % 98 % [facility] ([facility]) Body height 61 [in_i] 61 [in_i] [facility] ([facility]) 5'1" Body mass index (BMI) [Ratio] 29.3 kg/m2 29.3 k g/m2 [facility] ([facility]) Body surface area Derived from formula 1.69 m2 1.69 m2 [facility] ([facility]) Diastolic blood pressure 40 mm[Hg] 40 mm[Hg] [facility] ([facility]) Body temperature 99.0 [degF] 99.0 [degF] [facility] ([facility]) Body weight 70.308 kg 70.308 kg [facility] ([facility]) Respiratory rate 18 /min 18 /min [facility] ( [facility]) Heart rate 98 /min 98 /min [facility] ([facility]) Diastolic blood pressure--sitting 52 mm[Hg] 52 mm[Hg] [facility] ([facility]) Manual Left Arm Heart rate 68 /min 68 /min [facility] ([facility]) Respiratory rate 16 /min 16 /min [facility] ( [facility]) Body temperature 98.2 [degF] 98.2 [degF] [facility] ([facility]) Oral Oxygen saturation in Arterial blood by Pulse oximetry 98 % 98 % [facility] ([facility]) Body weight 66.736 kg 66.736 kg [facility] ([facility]) Body weight 147.12 [lb_av] 147.12 [lb_av] [facility] T ([facility]) Body surface area Derived from formula 1.66 m2 1.66 m2 [facility] ([facility]) Body height 61 [in_i] 61 [in_i] [facility] ([facility]) 5'1" Systolic blood pressure--sitting 98 mm[Hg] 98 mm[Hg] [facility] ([facility]) Manual Left Arm Body mass index (BMI) [Ratio] 27.8 kg/m2 27.8 k g/m2 [facility] ([facility]) Oxygen saturation in Arterial blood by Pulse oximetry 98 % 98 % [facility] ([facility]) Systolic blood pressure 132 mm[Hg] 132 mm[Hg] M EDENT ([facility]) Diastolic blood pressure 88 mm[Hg] 88 mm[Hg] [facility] ([facility] ) Heart rate 84 /min 84 /min [facility] ([facility] ) Body temperature 98.4 [degF] 98.4 [degF] [facility] ([facility] ) Body height 61 [in_i] 61 [in_i] [facility] ([facility] ) 5'1" Body weight 152.25 [lb_av] 152.25 [lb_av] [facility] T ([facility] ) Body mass index (BMI) [Ratio] 28.8 kg/m2 28.8 k g/m2 [facility] ([facility]) Oxygen saturation in Arterial blood by Pulse oximetry 98 % 98 % [facility] ([facility]) Body temperature 98.9 [degF] 98.9 [degF] [facility] ([facility]) Body weight 152.00 [lb_av] 152.00 [lb_av] [facility] T ([facility]) Respiratory rate 16 /min 16 /min [facility] ( [facility]) Body height 61 [in_i] 61 [in_i] [facility] ([facility]) 5'1" Body weight 68.947 kg 68.947 kg [facility] ([facility]) Body surface area Derived from formula 1.68 m2 1.68 m2 [facility] ([facility]) Body mass index (BMI) [Ratio] 28.7 kg/m2 28.7 k g/m2 [facility] ([facility]) Systolic blood pressure 116 mm[Hg] 116 mm[Hg] M EDENT ([facility]) Diastolic blood pressure 80 mm[Hg] 80 mm[Hg] [facility] ([facility]) Heart rate 73 /min 73 /min [facility] ([facility]) Systolic blood pressure 126 mm[Hg] 126 mm[Hg] M EDENT ([facility] ) Diastolic blood pressure 76 mm[Hg] 76 mm[Hg] [facility] ([facility] ) Heart rate 87 /min 87 /min [facility] ([facility] ) Body temperature 97.6 [degF] 97.6 [degF] [facility] ([facility]) Body height 61 [in_i] 61 [in_i] [facility] ([facility]) 5'1" Body weight 133.50 [lb_av] 133.50 [lb_av] [facility] T ([facility]) Body mass index (BMI) [Ratio] 25.2 kg/m2 25.2 k g/m2 [facility] ([facility]) Oxygen saturation in Arterial blood by Pulse oximetry 98 % 98 % [facility] ([facility]) Respiratory rate 16 /min 16 /min [facility] ( [facility]) Diastolic blood pressure 80 mm[Hg] 80 mm[Hg] [facility] ([facility]) Heart rate 88 /min 88 /min [facility] ([facility]) Oxygen saturation in Arterial blood by Pulse oximetry 99 % 99 % [facility] Body temperature 98.2 [degF] 98.2 [degF] [facility] ([facility]) Systolic blood pressure 115 mm[Hg] 115 mm[Hg] [facility] Heart rate 87 /min 87 /min [facility] ([facility]) Systolic blood pressure 113 mm[Hg] 113 mm[Hg] M [facility] ([facility]) Body temperature 98.7 [degF] 98.7 [degF] [facility] ([facility]) Oxygen saturation in Arterial blood by Pulse oximetry 99 % 99 % [facility] Diastolic blood pressure 74 mm[Hg] 74 mm[Hg] [facility] ([facility]) Respiratory rate 16 /min 16 /min [facility] ( [facility]) Systolic blood pressure 118 mm[Hg] 118 mm[Hg] [facility] Diastolic blood pressure 74 mm[Hg] 74 mm[Hg] [facility] ([facility]) Heart rate 86 /min 86 /min [facility] ([facility]) Body temperature 97.2 [degF] 97.2 [degF] [facility] Respiratory rate 18 /min 18 /min [facility] ( [facility]) Oxygen saturation in Arterial blood by Pulse oximetry 96 % 96 % [facility] ([facility]) Body weight 138.00 [lb_av] 138.00 [lb_av] [facility] T ([facility]) Body weight 62.597 kg 62.597 kg [facility] ([facility]) Body height 61 [in_i] 61 [in_i] [facility] ([facility]) 5'1" Body mass index (BMI) [Ratio] 26.1 kg/m2 26.1 k g/m2 [facility] ([facility]) Body surface area Derived from formula 1.61 m2 1.61 m2 [facility] ([facility]) Systolic blood pressure 115 mm[Hg] 115 mm[Hg] M [facility] ([facility] ) Heart rate 78 /min 78 /min [facility] ([facility] ) Diastolic blood pressure 80 mm[Hg] 80 mm[Hg] [facility] ([facility] ) Body mass index (BMI) [Ratio] 25.1 kg/m2 25.1 k g/m2 [facility] ([facility] ) Respiratory rate 14 /min 14 /min [facility] ( [facility] ) Body height 61 [in_i] 61 [in_i] [facility] ([facility] ) 5'1" Body weight 133.00 [lb_av] 133.00 [lb_av] [facility] T ([facility] ) [place] body weight 105 [lb_av] 105 [lb_av] [facility] T ([facility] ) Body mass index (BMI) [Ratio] 25.2 kg/m2 25.2 k g/m2 [facility] ([facility] ) Oxygen saturation in Arterial blood by Pulse oximetry 98 % 98 % [facility] ([facility] ) Systolic blood pressure 118 mm[Hg] 118 mm[Hg] M [facility] ([facility] ) Diastolic blood pressure 78 mm[Hg] 78 mm[Hg] [facility] ([facility] ) Heart rate 106 /min 106 /min [facility] ([facility] ) Body height 61 [in_i] 61 [in_i] [facility] ([facility] ) 5'1" Body weight 133.38 [lb_av] 133.38 [lb_av] [facility] T ([facility] )
[2021-03-17 20:36] LABS: HCG, SERUM QUALITATIVE NEGATIVE (NEGATIVE)
[2021-03-17 20:38] LABS: OSMOLALITY SERUM 283 MOSM/KG (275-295)
[2021-03-17 20:39] LABS: ACETAMINOPHEN LEVEL < 2.0 UG/ML (10.0-30.0); ALBUMIN 3.8 GM/DL (3.2-5.2); ALT/SGPT 24 U/L (12-78); BILIRUBIN,DIRECT 0.1 MG/DL (0.0-0.2); BILIRUBIN,TOTAL 0.5 MG/DL (0.2-1.0); BLOOD UREA NITROGEN 7 MG/DL (7-18); CALCIUM LEVEL 9.9 MG/DL (8.5-10.1); CARBON DIOXIDE LEVEL 23 MEQ/L (21-32); CHLORIDE LEVEL 109 MEQ/L (98-107); CPK CREATINE PHOSPHOKINASE 189 U/L (26-192); ETHYL ALCOHOL (ETHANOL) < 0.003 % (0.000-0.010); FREE T4 1.33 NG/DL (0.76-1.46); GLOMERULAR FILTRATION RATE > 60.0 (>60); GLUCOSE, FASTING 87 MG/DL (70-100); LITHIUM LEVEL 0.86 MEQ/L (0.60-1.20); POTASSIUM SERUM 3.8 MEQ/L (3.5-5.1); SALICYLATE LEVEL 4.1 MG/DL (5.0-30.0); SODIUM LEVEL 140 MEQ/L (136-145); THYROID STIMULATING HORMONE 0.577 uIU/ML (0.358-3.740); TOTAL PROTEIN 7.2 GM/DL (6.4-8.2)
[2021-03-17 20:47] LABS: RSV AMPLIFICATION NEGATIVE (NEGATIVE)
[2021-03-17] MEDS ORDERED: LORazepam 2 MG/ML VIAL IV STA (22:03)
[2021-03-17] MEDS ORDERED: HALOPERIDOL 5MG/ML VIAL (J1630 PER 1) IV ONE (22:05)
[2021-03-17] MEDS ORDERED: LORazepam 2 MG/ML VIAL As Ordered ONE (22:07)
[2021-03-17] MEDS ORDERED: diphenhydrAMINE 50MG/ML VIAL (J1200) IV STA (22:16)
[2021-03-17] MEDS ORDERED: diphenhydrAMINE 50MG/ML VIAL (J1200) As Ordered ONE (22:17)
[2021-03-17 22:18] LABS: AMPHETAMINES LEVEL URINE POSITIVE (NEGATIVE); BARBITURATES URINE NEGATIVE (NEGATIVE); BENZODIAZEPINES URINE NEGATIVE (NEGATIVE); CANNABINOIDS URINE POSITIVE (NEGATIVE); COCAINE METABOLITE URINE NEGATIVE (NEGATIVE); METHADONE URINE NEGATIVE (NEGATIVE); OPIATES URINE NEGATIVE (NEGATIVE); PHENCYCLIDINE URINE NEGATIVE (NEGATIVE)
[2021-03-18 00:03] LABS: LITHIUM LEVEL 0.77 MEQ/L (0.60-1.20); SALICYLATE LEVEL 3.5 MG/DL (5.0-30.0)
--- NOTE | 2021-03-18 07:43 | ECGEPIP ---
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
[2021-03-18] MEDS ORDERED: LITHIUM CARBONATE 300 MG CAP PO SCH (09:00)
[2021-03-18] MEDS ORDERED: HOME MED LIST COMPLETE! XX SCH (10:40)
[2021-03-18] MEDS ORDERED: MAALOX 30 ML SUSP *UDC PO PRN (13:45)
[2021-03-18] MEDS ORDERED: MOM 30ML SUSPENSION UDC PO PRN (13:45)
--- OUTSIDE RECORDS SUMMARY | 2021-03-18 14:00 | CCD ---
Author Author [facility] Organization [facility] Address Unknown Phone Unavailable Support Name Relationship Address Phone ROGELIO ADAMS Next Of Kin [address] [place] [address] AlbertJeanne rodriguez DDS Next Of Kin [address] [place], [place] [phone] Maru Hercules Next Of Kin Unknown Unavailable MCDEVANSMI Next Of Kin [address] [place] [address] MCDPUL Next Of Kin [address] [facility] [address] [place] [address] UNK Next Of Kin Unknown Unavailable MCDONALDS Next Of Kin [address] [place] [address] A[place] [id number] DOROTEO AC Next Of Kin [address] [place] [address] Jeanne Magaña DDS Next Of Kin [address] [place] [phone] JACKIE ESPINOSA Next Of Kin [address] [facility] [address] [place] [address] GUI'Thomas Next Of Kin [address] [place] [address] WU AC Next Of Kin [address] [place] [address] [employer] Next Of Kin [address] [place] [address] PANRUAruna Next Of Kin [address] [place] [address] ST Next Of Kin Unknown Unavailable Valerie RODRIGUEZ Next Of Kin [address] [place] [address] UNEMPLOYED Next Of Kin [address] [place] [address] UE Next Of Kin Unknown Unavailable MARU HERCULES Next Of Kin [address] [address] [place], [place] [id number] DOREENDEBORAH CORNELIUS Next Of Kin [address] [place] [address] Maru Hercules ECON [address] [place] [address] Unavailable Care Team Providers Care Rn Travel Name Role Phone NERY, F GODWIN DO [...] Unavailable SAGASTUME, MYA MD Unavailable Unavailable SAGASTUME, YMA MD Unavailable Unavailable SAGASTUME, MYA MD Unavailable [...] Unavailable PATTON, ROBERTO PA Unavailable Unavailable PATTON, ROBETRO PA Unavailable Unavailable PATTON, ROBERTO PA Unavailable [...] Eloise PA-C Unavailable Unavailable MAURA, B BRONSON NEWSPAPER COPY EDITOR Unavailable Unavailable MAURA, B BRONSON NEWSPAPER COPY EDITOR Unavailable Unavailable MAURA, B BRONSON NEWSPAPER COPY EDITOR Unavailable Unavailable MAURA, B BRONSON NEWSPAPER COPY EDITOR Unavailable Unavailable MAURA, B BRONSON NEWSPAPER COPY EDITOR Unavailable Unavailable MAURA, B BRONSON NEWSPAPER COPY EDITOR Unavailable Unavailable MAURA, B BRONSON NEWSPAPER COPY EDITOR Unavailable Unavailable MAURA, B BRONSON NEWSPAPER COPY EDITOR Unavailable Unavailable MAURA, B BRONSON NEWSPAPER COPY EDITOR Unavailable Unavailable MAURA, B BRONSON NEWSPAPER COPY EDITOR Unavailable Unavailable MAURA, B BRONSON NEWSPAPER COPY EDITOR Unavailable Unavailable MAURA, B BRONSON NEWSPAPER COPY EDITOR Unavailable Unavailable MAURA, B BRONSON NEWSPAPER COPY EDITOR Unavailable Unavailable MAURA, B BRONSON NEWSPAPER COPY EDITOR Unavailable Unavailable MAURA, B BRONSON NEWSPAPER COPY EDITOR Unavailable Unavailable MAURA, B BRONSON NEWSPAPER COPY EDITOR Unavailable Unavailable MAURA, B BRONSON NEWSPAPER COPY EDITOR Unavailable Unavailable MAURA, B BRONSON NEWSPAPER COPY EDITOR Unavailable Unavailable MAURA, B BRONSON NEWSPAPER COPY EDITOR Unavailable Unavailable MAURA, B BRONSON NEWSPAPER COPY EDITOR Unavailable Unavailable MAURA, B BRONSON NEWSPAPER COPY EDITOR Unavailable Unavailable MAURA, B BRONSON NEWSPAPER COPY EDITOR Unavailable Unavailable MAURA, B BRONSON NEWSPAPER COPY EDITOR Unavailable Unavailable MAURA, B BRONSON NEWSPAPER COPY EDITOR Unavailable Unavailable MAURA, B BRONSON NEWSPAPER COPY EDITOR Unavailable Unavailable MAURA, B BRONSON NEWSPAPER COPY EDITOR Unavailable Unavailable MAURA, B BRONSON NEWSPAPER COPY EDITOR Unavailable Unavailable MAURA, B BRONSON NEWSPAPER COPY EDITOR Unavailable Unavailable MAURA, B BRONSON NEWSPAPER COPY EDITOR Unavailable Unavailable MAURA, B BRONSON NEWSPAPER COPY EDITOR Unavailable Unavailable MAURA, B BRONSON NEWSPAPER COPY EDITOR Unavailable Unavailable MAURA, B BRONSON NEWSPAPER COPY EDITOR Unavailable Unavailable MAURA, B BRONSON NEWSPAPER COPY EDITOR Unavailable Unavailable MAURA, B BRONSON NEWSPAPER COPY EDITOR Unavailable Unavailable MAURA, B BRONSON NEWSPAPER COPY EDITOR Unavailable Unavailable MAURA, B BRONSON NEWSPAPER COPY EDITOR Unavailable Unavailable MAURA, B BRONSON NEWSPAPER COPY EDITOR Unavailable Unavailable MAURA, B BRONSON NEWSPAPER COPY EDITOR Unavailable Unavailable MAURA, B BRONSON NEWSPAPER COPY EDITOR Unavailable Unavailable MAURA, B BRONSON NEWSPAPER COPY EDITOR Unavailable Unavailable MAURA, B BRONSON NEWSPAPER COPY EDITOR Unavailable Unavailable MAURA, B BORNSON NEWSPAPER COPY EDITOR Unavailable Unavailable MAURA, B BRONSON NEWSPAPER COPY EDITOR Unavailable Unavailable MAURA, B BRONSON NEWSPAPER COPY EDITOR Unavailable Unavailable MAURA, B BRONSON NEWSPAPER COPY EDITOR Unavailable Unavailable MAURA, B BRONSON NEWSPAPER COPY EDITOR Unavailable Unavailable MAURA, B BRONSON NEWSPAPER COPY EDITOR Unavailable Unavailable MAURA, B BRONSON NEWSPAPER COPY EDITOR Unavailable Unavailable MAURA, B BRONSON NEWSPAPER COPY EDITOR Unavailable Unavailable MAURA, B BRONSON NEWSPAPER COPY EDITOR Unavailable Unavailable MAURA, B BRONSON NEWSPAPER COPY EDITOR Unavailable Unavailable MAURA, B BRONSON NEWSPAPER COPY EDITOR Unavailable Unavailable MAURA, B BRONSON NEWSPAPER COPY EDITOR Unavailable Unavailable MAURA, B BRONSON NEWSPAPER COPY EDITOR Unavailable Unavailable MAURA, B BRONSON NEWSPAPER COPY EDITOR Unavailable Unavailable MAURA, B BRONSON NEWSPAPER COPY EDITOR Unavailable Unavailable MAURA, B BRONSON NEWSPAPER COPY EDITOR Unavailable Unavailable MAURA, B BRONSON NEWSPAPER COPY EDITOR Unavailable Unavailable MAURA, B BRONSON NEWSPAPER COPY EDITOR Unavailable Unavailable MAURA, B BRONSON NEWSPAPER COPY EDITOR Unavailable Unavailable MAURA, B BRONSON NEWSPAPER COPY EDITOR Unavailable Unavailable MAURA, B BRONSON NEWSPAPER COPY EDITOR Unavailable Unavailable KAUR, J MAXIMO PA Unavailable [...] Unavailable KAUR, J MAXIMO PA Unavailable Unavailable KUAR, J MAXIMO PA Unavailable Unavailable KAUR, J MAXIMO PA Unavailable Unavailable KAUR, J MAXIMO PA Unavailable Unavailable KAUR, J MAXIMO PA Unavailable Unavailable KAUR, J MAXIMO PA Unavailable Unavailable KAUR, J MAXIMO PA Unavailable Unavailable KAUR, J MAXMIO PA Unavailable Unavailable KAUR, J MAXIMO PA [...] Javier PA-C Unavailable Unavailable BUMBANAC, A STAR NEWSPAPER COPY EDITOR Unavailable Unavailable BUMBANAC, A STAR NEWSPAPER COPY EDITOR Unavailable Unavailable BUMBANAC, A STAR NEWSPAPER COPY EDITOR Unavailable Unavailable BUMBANAC, A STAR NEWSPAPER COPY EDITOR Unavailable Unavailable BUMBANAC, A STAR NEWSPAPER COPY EDITOR Unavailable Unavailable BUMBANAC, A STAR NEWSPAPER COPY EDITOR Unavailable Unavailable BUMBANAC, A STAR NEWSPAPER COPY EDITOR Unavailable Unavailable BUMBANAC, A STAR NEWSPAPER COPY EDITOR Unavailable Unavailable BUMBANAC, A STAR NEWSPAPER COPY EDITOR Unavailable Unavailable BUMBANAC, A STAR NEWSPAPER COPY EDITOR Unavailable Unavailable BUMBANAC, A STAR NEWSPAPER COPY EDITOR Unavailable Unavailable BUMBANAC, A STAR NEWSPAPER COPY EDITOR Unavailable Unavailable BUMBANAC, A STAR NEWSPAPER COPY EDITOR Unavailable Unavailable BUMBANAC, A STAR NEWSPAPER COPY EDITOR Unavailable Unavailable BUMBANAC, A STAR NEWSPAPER COPY EDITOR Unavailable Unavailable BUMBANAC, A STAR NEWSPAPER COPY EDITOR Unavailable Unavailable BUMBANAC, A STAR NEWSPAPER COPY EDITOR Unavailable Unavailable BUMBANAC, A STAR NEWSPAPER COPY EDITOR Unavailable Unavailable BUMBANAC, A STAR NEWSPAPER COPY EDITOR Unavailable Unavailable BUMBANAC, A STAR NEWSPAPER COPY EDITOR Unavailable Unavailable BUMBANAC, A STAR NEWSPAPER COPY EDITOR Unavailable Unavailable BUMBANAC, A STAR NEWSPAPER COPY EDITOR Unavailable Unavailable BUMBANAC, A STAR NEWSPAPER COPY EDITOR Unavailable Unavailable BUMBANAC, A STAR NEWSPAPER COPY EDITOR Unavailable Unavailable BUMBANAC, A STAR NEWSPAPER COPY EDITOR Unavailable Unavailable BUMBANAC, A STAR NEWSPAPER COPY EDITOR Unavailable Unavailable BUMBANAC, A STAR NEWSPAPER COPY EDITOR Unavailable Unavailable BUMBANAC, A STAR NEWSPAPER COPY EDITOR Unavailable Unavailable BUMBANAC, A STAR NEWSPAPER COPY EDITOR Unavailable Unavailable BUMBANAC, A STAR NEWSPAPER COPY EDITOR Unavailable Unavailable BUMBANAC, A STAR NEWSPAPER COPY EDITOR Unavailable Unavailable IKER, LAKEISHA MOLD MACHINE OPERATOR Unavailable Unavailable IKER, LAKEISHA MOLD MACHINE OPERATOR Unavailable Unavailable Byrd, A Andres PA Unavailable Unavailable Byrd, A Andres PA Unavailable Unavailable Byrd, A Andres PA Unavailable Unavailable Byrd, A Andres PA Unavailable Unavailable Byrd, A Andres PA Unavailable Unavailable Byrd, A Andres PA Unavailable Unavailable Byrd, A Andres PA Unavailable Unavailable JULEE ANTUNEZ MD Unavailable Unavailable AMJULEE VANCE MD Unavailable Unavailable AMJULEE VANCE MD Unavailable Unavailable AMJULEE VANCE MD Unavailable Unavailable AMJULEE VANCE MD Unavailable Unavailable AMJULEE VANCE MD Unavailable Unavailable AMJULEE VANCE MD Unavailable Unavailable AMJULEE VANCE MD Unavailable Unavailable AMCHAPARRITA VANCEA MD Unavailable Unavailable AMERCHAPARRITA ALEMANA MD Unavailable Unavailable AMCHAPARRITA VANCEA MD Unavailable Unavailable AMJULEE VANCE MD Unavailable Unavailable MYA SAGASTUME MD Unavailable Unavailable MYA SAGASTUME MD Unavailable Unavailable MYA SAGASTUME MD Unavailable Unavailable SAGASTUMEMYA GEORGES MD Unavailable Unavailable SAGASTUMEMYA GEORGES MD Unavailable Unavailable SAGASTUMEMYA GEORGES MD Unavailable Unavailable SAGASTUMEMYA GEORGES MD Unavailable Unavailable SAGASTUMEMYA GEORGES MD Unavailable Unavailable SAGASTUMEMYA GEORGES MD Unavailable Unavailable SAGASTUMEMYA GEORGES MD Unavailable Unavailable SAGASTUMEMYA GEORGES MD Unavailable Unavailable SAGASTUMEMAY GEORGES MD Unavailable Unavailable SAGASTUMEMYA GEORGES MD [...] Unavailable Unavailable SAGASTUMEMYA GEORGES MD Unavailable Unavailable SAGASTUMEYMA GEORGES MD Unavailable Unavailable SAGASTUMEMYA GEORGES MD Unavailable Unavailable SAGASTUMEMYA GEORGES MD Unavailable Unavailable SAGASTUME, MYA MD Unavailable Unavailable SAGASTUMEMYA GEORGES MD Unavailable [...] Unavailable SAGASTUMEMYA GEORGES MD Unavailable Unavailable SAGASTUMEMYA EGORGES MD Unavailable Unavailable SAGASTUMEMYA GEORGES MD Unavailable [...] GEORGES MD Unavailable Unavailable MAURA, B BRONSON NEWSPAPER COPY EDITOR Unavailable Unavailable MAURA, B BRONSON NEWSPAPER COPY EDITOR Unavailable Unavailable MAURA, B BRONSON NEWSPAPER COPY EDITOR Unavailable Unavailable MAURA, B BRONSON NEWSPAPER COPY EDITOR Unavailable Unavailable MAURA, B BRONSON NEWSPAPER COPY EDITOR Unavailable Unavailable MAURA, B BRONSON NEWSPAPER COPY EDITOR Unavailable Unavailable MAURA, B BRONSON NEWSPAPER COPY EDITOR Unavailable Unavailable MAURA, B BRONSON NEWSPAPER COPY EDITOR Unavailable Unavailable MAURA, B BRONSON NEWSPAPER COPY EDITOR Unavailable Unavailable MAURA, B BRONSON NEWSPAPER COPY EDITOR Unavailable Unavailable MAURA, B BRONSON NEWSPAPER COPY EDITOR Unavailable Unavailable MAURA, B BRONSON NEWSPAPER COPY EDITOR Unavailable Unavailable MAURA, B BRONSON NEWSPAPER COPY EDITOR Unavailable Unavailable MAURA, B BRONSON NEWSPAPER COPY EDITOR Unavailable Unavailable MAURA, B BRONSON NEWSPAPER COPY EDITOR Unavailable Unavailable MAURA, B BRONSON NEWSPAPER COPY EDITOR Unavailable Unavailable MAURA, B BRONSON NEWSPAPER COPY EDITOR Unavailable Unavailable MAURA, B BRONSON NEWSPAPER COPY EDITOR Unavailable Unavailable MAURA, B BRONSON NEWSPAPER COPY EDITOR Unavailable Unavailable MAURA, B BRONSON NEWSPAPER COPY EDITOR Unavailable Unavailable MAURA, B BRONSON NEWSPAPER COPY EDITOR Unavailable Unavailable MAURA, B BRONSON NEWSPAPER COPY EDITOR Unavailable Unavailable MAURA, B BRONSON NEWSPAPER COPY EDITOR Unavailable Unavailable MAURA, B BRONSON NEWSPAPER COPY EDITOR Unavailable Unavailable MAURA, B BRONSON NEWSPAPER COPY EDITOR Unavailable Unavailable MAURA, B BRONSON NEWSPAPER COPY EDITOR Unavailable Unavailable MAURA, B BRONSON NEWSPAPER COPY EDITOR Unavailable Unavailable MAURA, B BRONSON NEWSPAPER COPY EDITOR Unavailable Unavailable MAURA, B BRONSON NEWSPAPER COPY EDITOR Unavailable Unavailable MAURA, B BRONSON NEWSPAPER COPY EDITOR Unavailable Unavailable MAURA, B BRONSON NEWSPAPER COPY EDITOR Unavailable Unavailable MAURA, B BRONSON NEWSPAPER COPY EDITOR Unavailable Unavailable MAURA, B BRONSON NEWSPAPER COPY EDITOR Unavailable Unavailable MAURA, B BROSNON NEWSPAPER COPY EDITOR Unavailable Unavailable MAURA, B BRONSON NEWSPAPER COPY EDITOR Unavailable Unavailable MAURA, B BRONSON NEWSPAPER COPY EDITOR Unavailable Unavailable MAURA, B BRONSON NEWSPAPER COPY EDITOR Unavailable Unavailable MAURA, B BRONSON NEWSPAPER COPY EDITOR Unavailable Unavailable MAURA, B BRONSON NEWSPAPER COPY EDITOR Unavailable Unavailable MAURA, B BRONSON NEWSPAPER COPY EDITOR Unavailable Unavailable MAURA, B BRONSON NEWSPAPER COPY EDITOR Unavailable Unavailable MAURA, B BRONSON NEWSPAPER COPY EDITOR Unavailable Unavailable MAURA, B BRONSON NEWSPAPER COPY EDITOR Unavailable Unavailable MAURA, B BRONSON NEWSPAPER COPY EDITOR Unavailable Unavailable MAURA, B BRONSON NEWSPAPER COPY EDITOR Unavailable Unavailable MAURA, B BRONSON NEWSPAPER COPY EDITOR Unavailable Unavailable MAURA, B BRONSON NEWSPAPER COPY EDITOR Unavailable Unavailable MAURA, B BRONSON NEWSPAPER COPY EDITOR Unavailable Unavailable MAURA, B BRONSON NEWSPAPER COPY EDITOR Unavailable Unavailable MAURA, B BRONSON NEWSPAPER COPY EDITOR Unavailable Unavailable MAURA, B BRONSON NEWSPAPER COPY EDITOR Unavailable Unavailable MAURA, B BRONSON NEWSPAPER COPY EDITOR Unavailable Unavailable MAURA, B BRONSON NEWSPAPER COPY EDITOR Unavailable Unavailable MAURA, B BRONSON NEWSPAPER COPY EDITOR Unavailable Unavailable MAURA, B BRONSON NEWSPAPER COPY EDITOR Unavailable Unavailable MAURA, B BRONSON NEWSPAPER COPY EDITOR Unavailable Unavailable MAURA, B BRONSON NEWSPAPER COPY EDITOR Unavailable Unavailable MAURA, B BRONSON NEWSPAPER COPY EDITOR Unavailable Unavailable MAURA, B BRONSON NEWSPAPER COPY EDITOR Unavailable Unavailable MAURA, B BRONSON NEWSPAPER COPY EDITOR Unavailable Unavailable MAURA, B BRONSON NEWSPAPER COPY EDITOR Unavailable Unavailable MAURA, B BRONSON NEWSPAPER COPY EDITOR Unavailable Unavailable BUMBANAC, A STAR NEWSPAPER COPY EDITOR Unavailable Unavailable BUMBANAC, A STAR NEWSPAPER COPY EDITOR Unavailable Unavailable BUMBANAC, A STAR NEWSPAPER COPY EDITOR Unavailable Unavailable BUMBANAC, A STAR NEWSPAPER COPY EDITOR Unavailable Unavailable BUMBANAC, A STAR NEWSPAPER COPY EDITOR Unavailable Unavailable BUMBANAC, A STAR NEWSPAPER COPY EDITOR Unavailable Unavailable BUMBANAC, A STAR NEWSPAPER COPY EDITOR Unavailable Unavailable BUMBANAC, A STAR NEWSPAPER COPY EDITOR Unavailable Unavailable BUMBANAC, A STAR NEWSPAPER COPY EDITOR Unavailable Unavailable BUMBANAC, A STAR NEWSPAPER COPY EDITOR Unavailable Unavailable BUMBANAC, A STAR NEWSPAPER COPY EDITOR Unavailable Unavailable BUMBANAC, A STAR NEWSPAPER COPY EDITOR Unavailable Unavailable BUMBANAC, A STAR NEWSPAPER COPY EDITOR Unavailable Unavailable BUMBANAC, A STAR NEWSPAPER COPY EDITOR Unavailable Unavailable BUMBANAC, A STAR NEWSPAPER COPY EDITOR Unavailable Unavailable BUMBANAC, A STAR NEWSPAPER COPY EDITOR Unavailable Unavailable BUMBANAC, A STAR NEWSPAPER COPY EDITOR Unavailable Unavailable BUMBANAC, A STAR NEWSPAPER COPY EDITOR Unavailable Unavailable BUMBANAC, A STAR NEWSPAPER COPY EDITOR Unavailable Unavailable BUMBANAC, A STAR NEWSPAPER COPY EDITOR Unavailable Unavailable BUMBANAC, A STAR NEWSPAPER COPY EDITOR Unavailable Unavailable BUMBANAC, A STAR NEWSPAPER COPY EDITOR Unavailable Unavailable BUMBANAC, A STAR NEWSPAPER COPY EDITOR Unavailable Unavailable BUMBANAC, A STAR NEWSPAPER COPY EDITOR Unavailable Unavailable BUMBANAC, A STAR NEWSPAPER COPY EDITOR Unavailable Unavailable BUMBANAC, A STAR NEWSPAPER COPY EDITOR Unavailable Unavailable BUMBANAC, A STAR NEWSPAPER COPY EDITOR Unavailable Unavailable BUMBANAC, A STAR NEWSPAPER COPY EDITOR Unavailable Unavailable BUMBANAC, A STAR NEWSPAPER COPY EDITOR Unavailable Unavailable BUMBANAC, A STAR NEWSPAPER COPY EDITOR Unavailable Unavailable BUMBANAC, A STAR NEWSPAPER COPY EDITOR Unavailable Unavailable KERNS, ANA MARIA EVANGELIST NEWSPAPER COPY EDITOR Unavailable Unavailable KERNS, ANA MARIA EVANGELIST NEWSPAPER COPY EDITOR Unavailable Unavailable KERNS, ANA MRAIA EVANGELIST NEWSPAPER COPY EDITOR Unavailable Unavailable KERNS, ANA MARIA EVANGELIST NEWSPAPER COPY EDITOR Unavailable Unavailable KERNS, ANA MARIA EVANGELIST NEWSPAPER COPY EDITOR Unavailable Unavailable KERNS, ANA MARIA EVANGELIST NEWSPAPER COPY EDITOR Unavailable Unavailable KERNS, ANA MARIA EVANGELIST NEWSPAPER COPY EDITOR Unavailable Unavailable KERNS, ANA MARIA EVANGELIST NEWSPAPER COPY EDITOR Unavailable Unavailable KERNS, ANA MARIA EVANGELIST NEWSPAPER COPY EDITOR Unavailable Unavailable KERNS, ANA MARIA EVANGELIST NEWSPAPER COPY EDITOR Unavailable Unavailable KERNS, ANA MARIA EVANGELIST NEWSPAPER COPY EDITOR Unavailable Unavailable KERNS, ANA MARIA EVANGELIST NEWSPAPER COPY EDITOR Unavailable Unavailable KERNS, ANA MARIA EVANGELIST NEWSPAPER COPY EDITOR Unavailable Unavailable KERNS, ANA MARIA EVANGELIST NEWSPAPER COPY EDITOR Unavailable Unavailable KERNS, ANA MARIA EVANGELIST NEWSPAPER COPY EDITOR Unavailable Unavailable KERNS, ANA MARIA EVANGELIST NEWSPAPER COPY EDITOR Unavailable Unavailable KERNS, ANA MARIA EVANGELIST NEWSPAPER COPY EDITOR Unavailable Unavailable KERNS, ANA MARIA EVANGELIST NEWSPAPER COPY EDITOR Unavailable Unavailable KERNS, ANA MARIA EVANGELIST NEWSPAPER COPY EDITOR Unavailable Unavailable KERNS, ANA MARIA EVANGELIST NEWSPAPER COPY EDITOR Unavailable Unavailable KERNS, ANA MARIA EVANGELIST NEWSPAPER COPY EDITOR Unavailable Unavailable KERNS, ANA MARIA EVANGELIST NEWSPAPER COPY EDITOR Unavailable Unavailable KERNS, ANA MARIA EVANGELIST NEWSPAPER COPY EDITOR Unavailable Unavailable TURRIN, NADYA Unavailable Unavailable TURRIN, NADYA Unavailable Unavailable TURRIN, NADYA Unavailable Unavailable TURRIN, NADYA Unavailable Unavailable Seth, D Lamine NEWSPAPER COPY EDITOR Unavailable Unavailable Seth, D Lamine NEWSPAPER COPY EDITOR Unavailable Unavailable Seth, D Lamine NEWSPAPER COPY EDITOR Unavailable Unavailable Seth, D Lamine NEWSPAPER COPY EDITOR Unavailable Unavailable Seth, D Lamine NEWSPAPER COPY EDITOR Unavailable Unavailable Seth, D Lamine NEWSPAPER COPY EDITOR Unavailable Unavailable Seth, D Lamine NEWSPAPER COPY EDITOR Unavailable Unavailable Seth, D Lamine NEWSPAPER COPY EDITOR Unavailable Unavailable Seth, D Lamine NEWSPAPER COPY EDITOR Unavailable Unavailable Seth, D Lamine NEWSPAPER COPY EDITOR Unavailable Unavailable Seth, D Lamine NEWSPAPER COPY EDITOR Unavailable Unavailable Seth, D Lamine NEWSPAPER COPY EDITOR Unavailable Unavailable Seth, D Lamine NEWSPAPER COPY EDITOR Unavailable Unavailable Seth, D Lamine NEWSPAPER COPY EDITOR Unavailable Unavailable Seth, D Lamine NEWSPAPER COPY EDITOR Unavailable Unavailable Seth, D Lamine NEWSPAPER COPY EDITOR Unavailable Unavailable Seth, D Lamine NEWSPAPER COPY EDITOR Unavailable Unavailable Seth, D Lamine NEWSPAPER COPY EDITOR Unavailable Unavailable Seth, D Lamine NEWSPAPER COPY EDITOR Unavailable Unavailable Seth, D Lamine NEWSPAPER COPY EDITOR Unavailable Unavailable Seth, D Lamine NEWSPAPER COPY EDITOR Unavailable Unavailable Seth, D Lamine NEWSPAPER COPY EDITOR Unavailable Unavailable Seth, D Lamine NEWSPAPER COPY EDITOR Unavailable Unavailable Seth, D Lamine NEWSPAPER COPY EDITOR Unavailable Unavailable Seth, D Lamine NEWSPAPER COPY EDITOR Unavailable Unavailable Seth, D Lamine NEWSPAPER COPY EDITOR Unavailable Unavailable Seth, D Lamine NEWSPAPER COPY EDITOR Unavailable Unavailable Seth, D Lamine NEWSPAPER COPY EDITOR Unavailable Unavailable Seth, D Lamine NEWSPAPER COPY EDITOR Unavailable Unavailable Seth, D Lamine NEWSPAPER COPY EDITOR Unavailable Unavailable Seth, D Lamine NEWSPAPER COPY EDITOR Unavailable Unavailable Seth, D Lamine NEWSPAPER COPY EDITOR Unavailable Unavailable Seth, D Lamine NEWSPAPER COPY EDITOR Unavailable Unavailable Seth, D Lamine NEWSPAPER COPY EDITOR Unavailable Unavailable Seth, D Lamine NEWSPAPER COPY EDITOR Unavailable Unavailable Seth, D Lamine NEWSPAPER COPY EDITOR Unavailable Unavailable Seth, D Lamine NEWSPAPER COPY EDITOR Unavailable Unavailable Seth, D Lamine NEWSPAPER COPY EDITOR Unavailable Unavailable Seth, D Lamine NEWSPAPER COPY EDITOR Unavailable Unavailable Seth, D Lamine NEWSPAPER COPY EDITOR Unavailable Unavailable Jonathan Benoit MD Unavailable Unavailable [...] Fish, B Elvie HECTOR Unavailable Unavailable Fish, Jonathan Bermeo MD Unavailable [...] JR, R Javier PA-C Unavailable Unavailable [id number], [id number] Unavailable Unavailable DEL, HEATHER DAVIDA PA Unavailable [...] Cota MD Unavailable Unavailable Wilestrellae, Fadia Davidson [facility] [place] Unavailable Unavailable Fish, Jonathan Bermeo MD Unavailable [...] Elvie HECTOR Unavailable Unavailable Fish, B Elvie MD Unavailable Unavailable Fish, B Elvie MD Unavailable Unavailable Fish, B Elvie MD Unavailable Unavailable Fish, B Elvie MD Unavailable Unavailable Fish, B Elvie MD Unavailable Unavailable Fish, B Elvie MD Unavailable Unavailable Fish, B Elvie MD Unavailable Unavailable Re-disclosure Warning The records that [...] is protected by Article 27-F of the [facility] Public Health law. If you continue you may have access to information: Regarding HIV / AIDS; Provided by facilities licensed or operated by the [facility] Office of Mental Health; or Provided by the [facility] Office for People With Developmental Disabilities. If such information is present, then the following [facility] mandated warning applies: This information [...] law may result in a fine or long-term sentence or both. A general authorization for the release of medical or other information is NOT sufficient authorization for further disc losure. Allergies and Adverse Reactions Type Description Substance Reaction Status Data Source(s ) No Known Food Allergies No Known Food Allergies [facility] Propensity to adverse reactions VICODIN VICODIN [facility] Propensity to adverse reactions LATEX LATEX [facility] Drug allergy MORPHINE MORPHINE [facility] Drug allergy CODEINE CODEINE [facility] Propensity to adverse reactions OPIOID OPIOID HIVES [facility] Family History Family Member Name Family Member Gender Family Member Status Date o f Status Description Data Source(s) Unknown Unknown Problem [facility] ([facility] Encounters Encounter Providers Location Date Indications Data Source(s ) Outpatient Attender: Olivia Rowland MHCConsultant: MYA HUFFMAN MD 03/16/2021 03:45:00 PM EDT - 03/16/2021 03:45:00 PM EDT [facility] Outpatient Attender: Olivia Rowland MHCConsultant: MYA HUFFMAN MD 03/10/2021 03:07:00 PM EDT - 03/10/2021 03:07:00 PM EDT [facility] Outpatient Attender: MYA SAGASTUME MDConsultant: MYA Lind MD 02/26/2021 01:13:00 PM EDT - 02/26/2021 02:13:00 PM EDT [facility] Outpatient Attender: EVANGELIST KERNS NPConsultant: MYA SAGASTUME MD 02/26/2021 01:11:00 PM EDT - 02/26/2021 02:11:00 PM EDT [facility] Outpatient Attender: Olivia Rowland MHCA ttender: EVANGELIST KERNS NPConsultant: MYA SAGASTUME MD 02/24/2021 03:59:00 PM EDT - 02/24/2021 03:59:00 PM EDT [facility] Outpatient Attender: MARK KENNEY NPConsultant: MYA GEORGES MD 02/22/2021 08:29:00 AM EDT - 02/22/2021 08:29:00 AM EDT [facility] Emergency Attender: NADYA AWADConsultant: MYA Lind MD 02/22/2021 07:44:00 AM EDT - 02/22/2021 07:59:00 AM EDT [facility] Patient discharged. Outpatient Attender: EVANGELIST KERNS NEWSPAPER COPY EDITOR Family [facility] 02/17/2021 02 :15:00 PM EDT [facility] ([facility]) Outpatient Attender: EVANGELIST KERNS NPConsultant: MYA SAGASTUME MD 02/17/2021 01:50:00 PM EDT - 02/17/2021 01:50:00 PM EDT [facility] Outpatient Attender: MYA SAGASTUME MDConsultant: MYA Lind MD 02/17/2021 01:23:00 PM EDT - 02/17/2021 01:23:00 PM EDT [facility] Outpatient Attender: MYA SAGASTUME MD [facility] 02/17/2021 0 1:00:00 PM EDT [facility] ([facility]) Outpatient Attender: MAXIMO KAUR PAConsultant: MYA GEORGES MD 02/10/2021 09:42:00 AM EDT - 02/10/2021 09:42:00 AM EDT [facility] Outpatient Attender: MAXIMO GUSTAFSON [facility] 02/10 09:40:00 AM EDT [facility] ([facility] Outpatient Attender: DAVIDA MATHIS PAConsultant: MYA SAGASTUME MD 01/29/2021 02:00:00 PM EDT - 01/29/2021 02:00:00 PM EDT [facility] Outpatient Attender: KIARRA CORREACConsultant: MYA SAGASTUME MD 01/24/2021 02:13:00 PM EDT - 01/24/2021 02:13:00 PM EDT [facility] Outpatient Attender: KIARRA MURCIA PA-C [facility] 02:10:00 PM EDT [facility] ([facility] Outpatient Attender: Olivia Rowladn MHCConsultant: MYA HUFFMNA MD 01/22/2021 01:06:00 PM EDT - 01/22/2021 01:06:00 PM EDT [facility] Outpatient Attender: Olivia Rowland MHCConsultant: MYA HUFFMAN MD 12/23/2020 03:03:00 PM EDT - 12/23/2020 03:03:00 PM EDT [facility] Outpatient Attender: MARK KENNEY NPConsultant: MYA GEORGES MD 11/20/2020 12:31:00 PM EDT - 11/20/2020 12:31:00 PM EDT [facility] Outpatient Attender: Olivia Rowland MHCConsultant: MYA HUFFMAN MD 11/18/2020 03:11:00 PM EDT - 11/18/2020 03:11:00 PM EDT [facility] Outpatient Attender: MYA SAGASTUME MD Family Practice 11/17/2020 0 1:00:00 PM EDT [facility] ([facility]) Outpatient Attender: MYA SAGASTUME MDConsultant: MYA Lind MD 11/17/2020 12:59:00 PM EDT - 11/17/2020 12:59:00 PM EDT [facility] OFFICE OUTPATIENT VISIT 15 MINUTES Attender: Elvie Benoit MD Phy sical Therapy 11/12/2020 10:00:00 AM EDT [facility] ([facility]) Outpatient Attender: Elvie Benoit MDConsultant: MYA Lind MD 11/09/2020 12:33:00 PM EDT - 11/09/2020 01:33:00 PM EDT [facility] Outpatient Attender: MAXIMO KAUR PAConsultant: MYA GEORGES MD 11/09/2020 11:27:00 AM EDT - 11/09/2020 11:27:00 AM EDT [facility] Outpatient Attender: MAXIMO GUSTAFSON Family Practice 11/09 11:20:00 AM EDT [facility] ([facility] Outpatient Attender: Olivia Rowland MHCConsultant: MYA HUFFMAN MD 10/14/2020 03:04:00 PM EDT - 10/14/2020 03:04:00 PM EDT [facility] Outpatient Attender: Lamine Ann NPConsultant: MYA MOHAMUD MD 10/06/2020 01:50:00 PM EDT - 10/06/2020 01:50:00 PM EDT [facility] Outpatient Attender: Eloise CORREACConsultant: MYA HUFFMAN MD 10/03/2020 01:47:00 PM EDT - 10/03/2020 01:47:00 PM EDT [facility] Outpatient Attender: MARK KENNEY NP Family Practice 09/25 02:50:00 PM EDT [facility] Outpatient Attender: MARK KENNEY NPConsultant: MYA GEORGES MD 09/25/2020 02:36:00 PM EDT - 09/25/2020 02:36:00 PM EDT [facility] Outpatient Attender: Olivia Rowland MHCConsultant: MYA HUFFMAN MD 09/16/2020 03:01:00 PM EDT - 09/16/2020 03:01:00 PM EDT [facility] Outpatient Attender: Javier Cruz JR [facility] 09/12 02:20:00 PM EDT [facility] Attender: Javier Cruz JRConsultant: MYA GEORGES MD 09/12/2020 02:18:00 PM EDT - 09/12/2020 02:18:00 PM EDT [facility] Outpatient Attender: MARK KENNEY NPConsultant: MYA GEORGES MD 09/03/2020 03:35:00 PM EDT - 09/03/2020 03:35:00 PM EDT [facility] Outpatient Attender: Olivia Rowland MHCConsultant: MYA HUFFMAN MD 08/26/2020 03:03:00 PM EDT - 08/26/2020 03:03:00 PM EDT [facility] Outpatient Attender: Olivia Rowland MHCConsultant: MYA HUFFMAN MD 08/11/2020 02:58:00 PM EST - 08/11/2020 02:58:00 PM EST [facility] Outpatient Attender: MAXIMO KAUR PAConsultant: MYA GEORGES MD 08/07/2020 11:21:00 AM EST - 08/07/2020 11:21:00 AM [facility] Outpatient Attender: MAXIMO GUSTAFSON Family Practice 08/07 10:20:00 AM EST [facility] Outpatient Attender: MAXIMO KAUR PAConsultant: MYA GEORGES MD 07/31/2020 01:03:00 PM EST - 07/31/2020 02:03:00 PM [facility] Outpatient Attender: Olivia Rowland MHCConsultant: MYA HUFFMAN MD 07/29/2020 02:56:00 PM [facility] - 07/29/2020 02:56:00 PM [facility] Outpatient Attender: MAXIMO KAUR PAConsultant: MYA GEORGES MD 07/07/2020 11:05:00 AM EST - 07/07/2020 11:05:00 AM [facility] Outpatient Attender: Olivia Rowland MHCConsultant: MYA HUFFMAN MD 07/01/2020 02:50:00 PM [facility] - 07/01/2020 02:50:00 PM [facility] Outpatient Attender: Andres Byrd PAConsultant: MYA MOHAMUD MD 06/30/2020 10:56:00 AM [facility] - 06/30/2020 10:56:00 AM [facility] Outpatient Attender: Olivia Rowland MHCConsultant: MYA HUFFMAN MD 06/17/2020 02:55:00 PM [facility] - 06/17/2020 02:55:00 PM [facility] Outpatient Attender: MYA SAGASTUME MDConsultant: MYA Lind MD 06/15/2020 09:21:00 AM [facility] - 06/15/2020 09:21:00 AM [facility] Outpatient Attender: MYA SAGASTUME MD Family Practice 06/15/2020 0 8:20:00 AM EST [facility] ([facility]) Outpatient Attender: Yon Cota MD Main office - [place] 06/11/2020 01:15:00 PM EST [facility] ([facility] ) Outpatient Attender: Olivia Rowland MHCConsultant: MYA HUFFMAN MD 05/25/2020 03:55:00 PM EST - 05/25/2020 03:55:00 PM [facility] Outpatient Attender: MAXIMO KAUR PAConsultant: MYA GEORGES MD 05/25/2020 02:50:00 PM EST - 05/25/2020 02:50:00 PM EST [facility] Outpatient Attender: [id number] [id number] Family Practice 05/25/2020 02:00:00 PM EST [facility] ([facility] Outpatient Attender: Elvie Benoit MD Physical Therapy 05/22 02:00:00 PM EST [facility] ([facility]) Outpatient Attender: MYA SAGASTUME MDConsultant: MYA Lind MD 05/14/2020 02:57:00 PM EST - 05/14/2020 02:57:00 PM [facility] Outpatient Attender: MYA SAGASTUME MD [facility] 05/14/2020 0 2:00:00 PM EST [facility] ([facility]) Outpatient Attender: Olivia Rowland MHCConsultant: MYA HUFFMAN MD 05/12/2020 10:40:00 AM EST - 05/12/2020 10:40:00 AM [facility] Outpatient Attender: LAKEISHA DONG [facility] WReferrer: Kanu Alexandra MDConsultant: MYA SAGASTUME MD 04/01/2020 10:00:00 AM E DT - 04/01/2020 10:00:00 AM EDT [facility] Outpatient Attender: BRONSON LORENZO NPConsultant: MYA MOHAMUD MD 03/31/2020 11:36:00 AM EDT - 03/31/2020 12:36:00 PM EDT [facility] Outpatient Attender: Elvie Benoit MDRef errer: Elvie Benoit MDConsultant: MYA SAGASTUME MD 03/31/2020 09:50:00 AM EDT - 03/31/2020 10:00:00 AM EDT [facility] Patient discharged. Outpatient Attender: Elvie Benoit MD Physical Therapy 03/19 03:00:00 PM EDT [facility] ([facility] Outpatient Attender: BRONSON LORENZO NPConsultant: MYA MOHAMUD MD 03/17/2020 01:53:00 PM EDT - 03/17/2020 02:53:00 PM EDT [facility] Outpatient Attender: ROBERTO PATTON PAConsultant: MYA SAGASTUME MD 03/08/2020 01:52:00 PM EDT - 03/08/2020 01:52:00 PM EDT [facility] Outpatient Attender: MARK KENNEY NPConsultant: MYA GEORGES MD 02/26/2020 12:20:00 PM EDT - 02/26/2020 12:20:00 PM EDT [facility] Outpatient Attender: MARK KENNEY NP Family Practice 02/25 12:15:00 PM EDT [facility] Outpatient Attender: MYA SAGASTUME MD Family Practice 02/24/2020 0 1:00:00 PM EDT [facility] Outpatient Attender: MYA SAGASTUME MDConsultant: MYA Lind MD 02/24/2020 12:59:00 PM EDT - 02/24/2020 12:59:00 PM EDT [facility] Outpatient Attender: Yon Cota MD Main office [facility] 01/30/2020 10:00:00 AM EDT [facility] ([facility] Outpatient Attender: Lety Reaves [facility] [place] Referrer: Kanu Alexandra MDConsultant: MYA SAGASTUME MD 01/22/2020 03:03:00 PM EDT - 01/22/2020 03:03:00 PM EDT [facility] Outpatient Attender: BRONSON LORENZO NP Physical Therapy 03:45:00 PM EDT [facility] ([facility] Outpatient Attender: MYA SAGASTUME MDConsultant: MYA Lind MD 01/14/2020 03:49:00 PM EDT - 01/14/2020 04:49:00 PM EDT [facility] Outpatient Attender: MYA SAGASTUME MDConsultant: MYA Lind MD 01/13/2020 03:02:00 PM EDT - 01/13/2020 03:02:00 PM EDT [facility] Emergency Attender: GODWIN GABRIEL DOConsultant: MYA Lind MD 01/11/2020 12:57:00 PM EDT - 01/11/2020 04:36:00 PM EDT [facility] Patient discharged. Outpatient Attender: MYA SAGASTUME MDConsultant: MYA Lind MD 01/06/2020 01:26:00 PM EDT - 01/06/2020 01:26:00 PM EDT [facility] Emergency Attender: JULEE ANTUNEZ MDConsultant: MYA SAGASTUME MD 12/26/2019 09:47:00 PM EDT - 12/26/2019 11:36:00 PM EDT [facility] Patient discharged. Outpatient Attender: MYA SAGASTUME MDConsultant: MYA Lind MD 12/10/2019 02:09:00 PM EDT - 12/10/2019 02:09:00 PM EDT [facility] Immunizations Vaccine Date Status Description Data Source(s) COVID-19 VACCINE Moderna 11/05/2020 12:00:00 AM EDT completed [facility] Vaccine Series Complete: YESThis Data wa s Submitted to [facility] Via [employer]. COVID-19 VACCINE Moderna 10/08/2020 12:00:00 AM EDT completed [facility] Vaccine Series Complete: NOThis Data was Submitted to [facility] Via [employer]365. New in 2011. IIV4 02/24/2020 01:40:00 PM EDT completed [facility] ([facility]) Medications Medication Brand Name Start Date Product Form Dose Route Admi nistrative Instructions Pharmacy Instructions Status Indications Reaction Description Data Source(s) Metronidazole 500 MG Oral Tablet Metronidazole 03/01/2021 12:00:00 AM EDT ORAL active [facility] ([facility]) Fluconazole 150 MG Oral Tablet Fluconazole 03/01/2021 12:00:00 AM EDT ORAL active [facility] ([facility]) Ciprofloxacin 250 MG Oral Tablet [Cipro] Cipro 02/18/2021 12:00: 00 AM EDT ORAL active [facility] ([facility]) Emgality Emgality 02/17/2021 12:00:00 AM EDT activ e [facility] ([facility]) Fluconazole 150 MG Oral Tablet Fluconazole 02/17/2021 12:00:00 AM EDT ORAL active [facility] ([facility]) Vitamin B 12 1 MG Oral Tablet Vitamin B-12 01/04/2021 12:00:00 AM EDT ORAL active [facility] ([facility]) rizatriptan 10 MG Disintegrating Oral Tablet Rizatriptan Alfredo zoate 10/15/2020 12:00:00 AM EDT completed [facility] ([facility]) rizatriptan 10 MG Disintegrating Oral Tablet Rizatriptan Alfredo zoate 10/15/2020 12:00:00 AM EDT active M [facility] ([facility]) tizanidine 4 MG Oral Tablet Tizanidine HCL 10/06/2020 12:00:00 AM EDT ORAL completed [facility] ([facility]) Naproxen 500 MG Oral Tablet Naproxen 10/06/2020 12:00:00 AM EDT ORAL completed [facility] ([facility]) Ketorolac (Toradol) Inj 30MG/ML 10/03/2020 12:00:00 AM EDT completed [facility] ([facility]) Medication administered onsite Ketorolac (Toradol) Inj 30MG/ML 09/12/2020 12:00:00 AM EDT completed [facility] ([facility]) Medication administered onsite Pseudoephedrine Hydrochloride 60 MG Oral Tablet Pseudoephedr ine HCL 06/30/2020 12:00:00 AM EST ORAL completed [facility] ([facility]) Aimovig Aimovig 06/11/2020 12:00:00 AM EST active [facility] ([facility]) Vraylar Kristylar 05/23/2020 12:00:00 AM EST ORAL active [facility] ([facility]) Ibuprofen 800 MG Oral Tablet Ibuprofen 05/22/2020 12:00:00 AM EST active [facility] ([facility]) [place] Carbonate 600 MG Oral Capsule [place] Carbonate 12:00:00 AM EST ORAL active [facility] ([facility]) [place] Carbonate 150 MG Oral Capsule [place] Carbonate 12:00:00 AM EST ORAL active [facility] ([facility]) rizatriptan 10 MG Disintegrating Oral Tablet [Maxalt] Maxalt -VENDING TECHNICIAN 05/17/2020 12:00:00 AM EST ORAL completed [facility] ([facility]) 24 HR Nicotine 0.583 MG/HR Transdermal Patch Nicotine 05/06/2020 12:00:00 AM EST completed [facility] ([facility]) Ofloxacin 3 MG/ML Ophthalmic Solution Ofloxacin (Ophthalmic) 03/08/2020 12:00:00 AM EDT completed [facility] ([facility]) Ergocalciferol 16880 UNT Oral Capsule Vitamin D (Ergocalcife rol) 02/24/2020 12:00:00 AM EDT ORAL active M [facility] ([facility]) montelukast 10 MG Oral Tablet Montelukast Sodium 02/24/2020 12:00:00 AM EDT ORAL active [facility] ([facility]) Flonase Allergy Relief Flonase Allergy Relief 02/24/2020 12:00:00 AM EDT NASAL active [facility] ([facility]) Ibuprofen 800 MG Oral Tablet Ibuprofen 01/30/2020 12:00:00 AM EDT ORAL active [facility] ([facility]) Amitriptyline Hydrochloride 10 MG Oral Tablet Amitriptyline HCL 01/30/2020 12:00:00 AM EDT ORAL completed [facility] ([facility]) Fluconazole 150 MG Oral Tablet Fluconazole 01/13/2020 12:00:00 AM EDT ORAL completed [facility] ([facility]) Escitalopram 10 MG Oral Tablet [Lexapro] Lexapro 01/13/2020 12:00: 00 AM EDT ORAL completed [facility] ([facility]) Sumatriptan Succinate Sumatriptan Succinate 01/06/2020 12:00:00 AM EDT completed [facility] ([facility]) 24 HR Propranolol Hydrochloride 60 MG Extended Release Oral Capsule Propranolol HCL ER 01/06/2020 12:00:00 AM EDT ORAL completed [facility] ([facility]) Loratadine 10 MG Oral Tablet [Claritin] Claritin 01/06/2020 12:00:0 0 AM EDT ORAL completed [facility] ([facility]) Insurance Providers Payer name Policy type / Coverage type Policy ID Covered libertarian ID Covered libertarian's relationship to mosley Policy Mosley Plan Information Medicaid Dental S [id number] [facility] I [id number] Self [id number] [facility] Medigap Part B [id number] Self [employer] COMM[employer]AN MCDHMO [id number] SP [id number] [facility] Health Maintenance Organization (HMO) [id number] Self [employer] COMMUNITY PLAN MCDHMO [id number] SP [id number] [employer] COMMUNITY PLAN MCDHMO [id number] [place] [id number] [place] [id number] SP [id number] [place] [id number] SP [id number] [employer] COMMUNITY PLAN MCDHMO [id number] SP [id number] SELF PAY ONLY [id number] SP [id number] [facility] COMMUNITY PLAN [place] [id number] 18 [id number] UNHC AMERICHOICE XIX -HMO [id number] 18 [id number] [employer] COMMUNITY PLAN MCDHMO [id number] SP [id number] [facility] COMMUNTY PLAN [id number] 18 [id number] [employer] COMMUNITY PLAN XIX [id number] 18 [id number] [facility] [id number] SP [id number] MEDICAID [id number] SP [id number] [employer] COMMUNITY PLAN MCDHMO [id number] SP [id number] [employer] COMMUNITY PLAN MCDHMO [id number] SP [id number] [facility] Community Plan Commercial [id number] Self [id number] [facility] Community Plan Commercial [id number] Self [id number] [facility] Communty Plan Medicaid [id number] Self [id number] [facility] Health Maintenance Organization (HMO) [id number] Self [id number] [facility] Community Plan Commercial [id number] Self [id number] [facility] Communty Plan Medicaid [id number] 0.6939.0 Self [id number] [facility] Community Plan Commercial [id number] .[id number] Self [id number] [facility] Communty Plan Medicaid [id number] 0.6939.0 Self [id number] [facility] Community Plan Commercial [id number] .[id number] Self [id number] [facility] Communty Plan Medicaid [id number] 0.6939.0 Self [id number] [facility] Community Plan Commercial [id number] .[id number] Self [id number] [facility] Communty Plan Medicaid [id number] 0.6939.0 Self [id number] [facility] Community Plan Commercial [id number] Self [id number] [facility] COMMUNITY PLAN [id number] 18 [id number] [facility] Community Plan Commercial [id number] .[id number] Self [id number] [facility] Communty Plan Medicaid [id number] 0.6939.0 Self [id number] [facility] Community Plan Commercial [id number] .[id number] Self [id number] [facility] Communty Plan Medicaid [id number] 0.6939.0 Self [id number] [facility] Community Plan Commercial [id number] Self [id number] [facility] Community Plan Commercial [id number] .[id number] Self [id number] [facility] Communty Plan Medicaid [id number] 0.6939.0 Self [id number] [facility] Community Plan Commercial [id number] 2.16.840.1 .[id number] Self [id number] [facility] Communty Plan Medicaid [id number] 0.6939.0 Self [id number] [facility] Communty Plan Medicaid [id number] 0.6939.0 Self [id number] [facility] Community Plan Commercial [id number] .[id number] Self [id number] [place] [id number] [facility](MCAID) O [id number] S [id number] [facility] Communty Plan Medicaid [id number] 0.6939.0 Self [id number] Medicaid Commercial [id number] Self [id number] MEDICAID -PHYSICIAN [id number] MEDICAID -O/P EMERGENCY ROOM [id number] [facility] [place] [id number] 18 [id number] SELF PAY ONLY UNAVAILABLE SP UNAV AILABLE Un Community Plan Medicaid [id number] Self [id number] [facility](MCAID) O [id number] S [id number] [facility] HEA [id number] S 1 [id number] [facility](MCAID) O [id number] S [id number] [facility] Health Maintenance Organization (HMO) [id number] Family Dependent [employer] AMERICHOICE XIX -HMO [id number] 18 [id number] [facility] [place] [id number] 10 [id number] [facility](MCAID) O [id number] S [id number] D Managed Care [facility] P [id number] S [id number] [facility] Health Maintenance Organization (HMO) [id number] Self [employer] AMERICHOICE XIX -HMO [id number] 18 [id number] D Managed Care [facility] P UNAVAILABLE S UNAVAILABLE Medicaid Dental S UNAVAILABLE S UN AVAILABLE [facility] HEALTH [id number] SP [id number] [facility] HEALTH [facility] [id number] SP [id number] MEDICAID [id number] SP [id number] HMO BLUE [id number] SP [id number] HMO BLUE [id number] SP [id number] [facility] [id number] MEDICAID [id number] SP [id number] [facility] HEALTH [id number] SP [id number] [facility] COMMUNITY PLAN [facility] [id number] SP [id number] [facility] [id number] SP [id number] [facility] COMMUNITY PLAN [facility] [id number] SP [id number] [facility] COMMUNITY PLAN [place] [id number] 18 [id number] [facility] COMMUNTY PLAN MC [id number] 18 [id number] [facility] COMMUNITY PLAN XIX [id number] 18 [id number] UNHC AMERICHOICE XIX -HMO [id number] 18 [id number] [facility] COMMUNITY PLAN [facility] [id number] SP [id number] Problems, Conditions, and Diagnoses Code Display Name Description Problem Type Effective Dates Data Source(s) F1220 Cannabis dependence, uncomplicated Cannabis depe ndence, uncomplicated Diagnosis 03/10/2021 03:07:00 PM EDT [facility] F3160 Bipolar disorder, current episode mixed, unspecified Bipolar disorder, current episode mixed, unspecified Diagnosis 03/10/2021 03:07:00 PM ED T [facility] Z5320 Procedure and treatment not carried out because of patient's decision for unspecified reasons Procedure and treatment not carried out because of patient's decision for unspecified reasons Diagnosis 02/22/2021 07:44:00 AM EDT [facility] R65512 Nicotine dependence, cigarettes, uncompl icated Nicotine dependence, cigarettes, uncomplicated Diagnosis 02/22/2021 07:44:00 AM EDT [facility] J029 Acute pharyngitis, unspecified Acute pharyngitis, unsp ecified Diagnosis 02/22/2021 07:44:00 AM EDT [facility] Z113 Encounter for screening for infections with a predominantly sexual mode of transmission Encounter for screening for infections w ith a predominantly sexual mode of transmission Diagnosis 02/17/2021 01:50:00 PM EDT [facility] B373 Candidiasis of vulva and vagina Candidiasis of vulva a nd vagina Diagnosis 02/17/2021 01:50:00 PM EDT [facility] D519 Vitamin B12 deficiency anemia, unspecifi ed Vitamin B12 deficiency anemia, unspecified Diagnosis 02/17/2021 01:23:00 PM EDT [facility] E559 Vitamin D deficiency, unspecified Vitamin D defi ciency, unspecified Diagnosis 02/17/2021 01:23:00 PM EDT [facility] P72606 Migraine without aura, not intractable, without status migrainosus Migraine without aura, not intractable, without status migrainosus Diagnosis 02/17/2021 01:23:00 PM EDT [facility] 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, in remission Alcohol abuse, in remissio n Diagnosis 02/10/2021 09:42:00 AM EDT [facility] J069 Acute upper respiratory infection, unspe cified Acute upper respiratory infection, unspecified Diagnosis 01/29/2021 02:00:00 PM EDT [facility] Z1152 ENCOUNTER FOR SCREENING FOR COVID-19 ENCOUNTER F OR SCREENING FOR COVID-19 Diagnosis 01/24/2021 02:13:00 PM EDT [facility] E611 Iron deficiency Iron deficiency Diagnosis 11/17/2020 12:5 9:00 PM EDT [facility] J309 Allergic rhinitis, unspecified Allergic rhinitis, unsp ecified Diagnosis 11/17/2020 12:59:00 PM EDT [facility] D693 Immune thrombocytopenic purpura Immune thrombocytopeni c purpura Diagnosis 11/17/2020 12:59:00 PM EDT [facility] R946 Abnormal results of thyroid function bobby dies Abnormal results of thyroid function studies Diagnosis 11/09/2020 12:33:00 PM EDT [facility] [id number] Muscle spasm of back Muscle spasm of back Diagnosis 10/06/2020 01:50:00 PM EDT [facility] R05 Cough Cough Diagnosis 09/25/2020 02:36:00 PM ED T [facility] F1120 Opioid dependence, uncomplicated Opioid dependen ce, uncomplicated Diagnosis 08/11/2020 02:58:00 PM [facility] [id number] Other senior living (current) drug therapy [employer] ocean transportation intermediary (current) drug therapy Diagnosis 07/29/2020 02:56:00 PM [facility] 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 Diagnosis 07/01/2020 02:50:00 PM [facility] Q04317 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 stenosis of right nasolacrimal duct Diagnosis 06/30/2020 10:56:00 AM [facility] D11746 Migraine with aura, not intractable, wit hout status migrainosus Migraine with aura, not intractable, without status migrainosus Diagnosis 06/15/2020 09:21:00 AM [facility] E0590 Thyrotoxicosis, unspecified without thyr otoxic crisis or storm Thyrotoxicosis, unspecified without thyrotoxic crisis or storm Diagnosis 05/14/2020 02:57:00 PM [facility] F609 Personality disorder, unspecified Personality di sorder, unspecified Diagnosis 05/14/2020 02:57:00 PM [facility] [id number] Other mucopurulent conjunctivitis, bilat eral Other mucopurulent conjunctivitis, bilateral Diagnosis 03/08/2020 01:52:00 PM EDT [facility] Z23 Encounter for immunization Encounter for immunization Diagnosis 02/24/2020 12:59:00 PM EDT [facility] D649 Anemia, unspecified Anemia, unspecified Diagnosis 0 02/24/2020 12:59:00 PM EDT [facility] F339 Major depressive disorder, recurrent, un specified Major depressive disorder, recurrent, unspecified Diagnosis 02/24/2020 12:59:00 PM EDT [facility] Z711 Person with feared health complaint in w shruthi no diagnosis is made Person with feared health complaint in whom no diagnosis is made Diagnosis 01/22/2020 03:03:00 PM EDT [facility] D51.9 Cobalamin deficiency Cobalamin deficiency Problem 02/17/2021 12:00:00 AM EDT [facility] ([facility]) G43.009 Migraine without aura, not refractory Mi graine without aura, not refractory Problem 11/17/2020 12:00:00 AM EDT [facility] ([facility]) J30.9 Allergic rhinitis Allergic rhinitis Problem 11/17/2020 12:00:00 AM EDT [facility] ([facility]) F12.20 Cannabis dependence, uncomplicated Cannabis depe ndence, uncomplicated Problem 04/01/2020 12:00:00 AM EDT [facility] ([facility]) F60.9 Personality disorder Personality disorder Problem 04/01/2020 12:00:00 AM EDT [facility] ([facility]) [id number] Cervico-occipital neuralgia Cervico-occipital neuralgi a Problem 01/30/2020 12:00:00 AM EDT [facility] ([facility]) [id number] Neck pain Neck pain Problem 01/30/2020 12:00:00 AM ED T [facility] ([facility]) [id number] Disorders of initiating and maintaining sleep Disorders of initiating and maintaining sleep Problem 01/30/2020 12:00:00 AM EDT [facility] ([facility]) [id number] Chronic tension-type headache Chronic tension-type hea dache Problem 01/30/2020 12:00:00 AM EDT [facility] ([facility]) [id number] Chronic intractable migraine without aur a Chronic intractable migraine without aura Problem 01/30/2020 12:00:00 AM EDT [facility] ([facility]) Surgeries/Procedures Procedure Description Date Indications Data Source(s) Brief Emotional/Behav Assessment W/ Scoring Doc Per Standard Inst 02/17/2021 12:00:00 AM EDT [facility] ([facility]) Admin Patient Focused Health Risk Assessment Instrument 02/17/2021 12:00:00 AM EDT [facility] ([facility]) OFFICE OUTPATIENT NEW 30 MINUTES 02/17/2021 12:00:00 A M EDT [facility] ([facility]) OFFICE OUTPATIENT VISIT 15 MINUTES 02/17/2021 12:00:00 AM EDT [facility] ([facility]) OFFICE OUTPATIENT VISIT 25 MINUTES 02/10/2021 12:00:00 AM EDT [facility] ([facility]) OFFICE OUTPATIENT NEW 10 MINUTES 01/29/2021 12:00:00 A M EDT [facility] ([facility]) Pulse Oximetry Single Determination 01/24/2021 12:00:0 0 AM EDT [facility] ([facility]) OFFICE OUTPATIENT VISIT 15 MINUTES 01/24/2021 12:00:00 AM EDT [facility] ([facility]) OFFICE OUTPATIENT VISIT 15 MINUTES 11/17/2020 12:00:00 AM EDT [facility] ([facility]) OFFICE OUTPATIENT VISIT 15 MINUTES 11/12/2020 12:00:00 AM EDT [facility] ([facility]) OFFICE OUTPATIENT VISIT 25 MINUTES 11/09/2020 12:00:00 AM EDT [facility] ([facility]) OFFICE OUTPATIENT VISIT 15 MINUTES 10/06/2020 12:00:00 AM EDT [facility] ([facility]) OFFICE OUTPATIENT VISIT 15 MINUTES 10/03/2020 12:00:00 AM EDT [facility] ([facility]) OFFICE OUTPATIENT VISIT 15 MINUTES 09/25/2020 12:00:00 AM EDT [facility] ([facility]) OFFICE OUTPATIENT NEW 10 MINUTES 09/12/2020 12:00:00 A M EDT [facility] ([facility]) OFFICE OUTPATIENT VISIT 25 MINUTES 08/07/2020 12:00:00 AM EST [facility] ([facility]) Psychiatric Diag Eval W/Medical Service 07/07/2020 12: 00:00 AM EST [facility] ([facility]) OFFICE OUTPATIENT VISIT 25 MINUTES 05/22/2020 12:00:00 AM EST [facility] ([facility]) Psychiatric Diagnostic Evaluation 04/01/2020 12:00:00 AM EDT [facility] ([facility]) Injection, Single Or Multiple trigger points one or two musc les 03/04/2020 12:00:00 AM EDT [facility] ([facility]) INJECTION ANES OTHER PERIPHERAL NERVE/BRANCH 0 12:00:00 AM EDT [facility] ([facility]) Psychiatric Diagnostic Evaluation 01/22/2020 12:00:00 AM EDT [facility] ([facility]) Results ID Date Data Source [id number] 03/12/2021 02:29:00 PM EDT [facility] Name Value Range Interpretation Code Description Data Kayleen rce(s) Supporting Document(s) SARS coronavirus 2 RNA [Presence] in Res piratory specimen by TRACEY with probe detection NEGATIVE [facility] This lab was ordered by [facility] a nd reported by [facility]. ID Date Data Source [id number] 03/12/2021 02:29:00 PM EDT [facility] ([facility]) Name Value Range Interpretation Code Description Data Kayleen rce(s) Supporting Document(s) Red Blood Count 4.67 10 4.00-5.40 Normal (applies to non-numeric results) [facility] ([facility]) White Blood Count 17.0 10 4.0-10.0 Above high normal [facility] ([facility]) Hematocrit 44.1 % 36.0-47.0 Normal (applies to non-numeric resul ts) [facility] ([facility]) Hemoglobin 14.4 g/dL 12.0-15.5 Normal (applies to non-numeric resul ts) [facility] ([facility]) Mean Corpuscular Volume 94.4 fl 80.0-96.0 Normal ( applies to non-numeric results) [facility] ([facility]) Mean Corpuscular HGB Conc 32.7 g/dL 32.0-36.5 Normal (applies to non-numeric results) [facility] ([facility]) Mean Corpuscular Hemoglobin 30.8 pg 27.0-33.0 Norm al (applies to non-numeric results) [facility] ([facility]) Red Cell Distribution Width 13.5 % 11.5-14.5 Norm al (applies to non-numeric results) [facility] ([facility]) Platelet Count, Automated 356 10 150-450 Normal (applies to non-numeric results) [facility] ([facility]) Nucleated Red Blood Cell % 0.0 % 0-0 Normal (applies to n on-numeric results) [facility] ([facility]) ID Date Data Source [id number] 03/12/2021 02:29:00 PM EDT [facility] ([facility]) Name Value Range Interpretation Code Description Data Kayleen rce(s) Supporting Document(s) Ethanol [Mass/volume] in Serum or Plasma Laboratory test result 0.000-0.010 Normal (applies to non-numeric results) [facility] ([facility]) <content>note:<nlbl:demographic_changed> </content>
<content></content> Salicylates [Mass/volume] in Serum or Plasma 5.4 mg/dL 5.0 -30.0 Normal (applies to non-numeric results) [facility] ([facility]) <content>note:<nlbl:demographic_changed> </content>
<content></content> Acetaminophen [Mass/volume] in Serum or Plasma Laboratory test r esult 10.0-30.0 Below low normal [facility] ([facility]) <content>note:<nlbl:demographic_changed> </content>
<content></content> Thyrotropin [Units/volume] in Serum or Plasma 0.283 uIU/ML 0. 358-3.740 Below low normal [facility] ([facility]) <content>note:<nlbl:demographic_changed> </content>
<content></content> Choriogonadotropin.beta subunit ( test) [Pres ence] in Serum or Plasma Laboratory test result Normal (applies to non-numeric results) [facility] ([facility]) <content>note:<nlbl:demographic_changed> </content>
<content></content> ID Date Data Source [id number] 03/12/2021 02:29:00 PM EDT [facility] ([facility]) Name Value Range Interpretation Code Description Data Kayleen rce(s) Supporting Document(s) Blood Urea Nitrogen 18 mg/dL 7-18 Normal (applies to non-nume jaiver results) [facility] ([facility]) Glucose, Fasting 96 mg/dL 70-100 Normal (applies to non-numeric results) [facility] ([facility]) Glomerular Filtration Rate Laboratory test result Normal (applies to non- numeric results) [facility] ([facility]) <content>Units are mL/min/1.73 m2</content>
<content></content>
<content>Chronic Kidney Disease Staging per NKF:</content>
<content></content>
<content>Stage I & II GFR >=60 Normal to Mildly Decreased</content>
<content>Stage III GFR 30- 59 Moderately Decreased</content>
<content>Stage IV GFR 15-29 Severely Decreased</content>
<content>Stage V GFR <15 Very Little GFR Left</content>
<content>ESRD GFR <15 on GAME TRAPPER</content>
<content></content> Creatinine For GFR 1.05 mg/dL 0.55-1.30 Normal (applies to non -numeric results) [facility] ([facility]) Potassium Serum 3.8 meq/L 3.5-5.1 Normal (applies to non-numeric results) [facility] ([facility]) Sodium Level 141 meq/L 136-145 Normal (applies to non-numeric res ults) [facility] ([facility]) Chloride Level 107 meq/L 98-107 Normal (applies to non-numeric r esults) [facility] ([facility]) Carbon Dioxide Level 26 meq/L 21-32 Normal (applies to non-num davida results) [facility] ([facility]) Anion Gap 8 meq/L 8-16 Normal (applies to non-numeric resul ts) [facility] ([facility]) Calcium Level 10.2 mg/dL 8.5-10.1 Above high normal [facility] ([facility]) ID Date Data Source [id number] 03/12/2021 02:29:00 PM EDT [facility] ([facility]) Name Value Range Interpretation Code Description Data Kayleen rce(s) Supporting Document(s) Alt/SGPT 23 U/L 12-78 Normal (applies to non-numeric resul ts) [facility] ([facility]) Ast/Sgot 19 U/L 7-37 Normal (applies to non-numeric resul ts) [facility] ([facility]) Bilirubin,Total 0.7 mg/dL 0.2-1.0 Normal (applies to non-numeric results) [facility] ([facility]) Alkaline Phosphatase 83 U/L 45-117 Normal (applies to non-num davida results) [facility] ([facility]) Bilirubin,Direct 0.2 mg/dL 0.0-0.2 Normal (applies to non-numeric results) [facility] ([facility]) Albumin/Globulin Ratio 1.2 1.2-2.2 Normal (applies to non-n umeric results) [facility] ([facility]) Albumin 4.4 GM/DL 3.2-5.2 Normal (applies to non-numeric resul ts) [facility] ([facility]) Total Protein 8.1 GM/DL 6.4-8.2 Normal (applies to non-numeric re sults) [facility] ([facility]) ID Date Data Source [id number] 03/12/2021 02:29:00 PM EDT [facility] ([facility]) Name Value Range Interpretation Code Description Data Kayleen rce(s) Supporting Document(s) [place] [Mass/volume] in Serum or Plasma 0.34 meq/L 0.60-1.20 Below low normal [facility] ([facility]) <content>note:<nlbl:demographic_changed> </content>
<content></content> ID Date Data Source [id number] 03/12/2021 02:29:00 PM EDT [facility] ([facility]) Name Value Range Interpretation Code Description Data Kayleen rce(s) Supporting Document(s) Influenza A Amplification Laboratory test result Normal (applies to non- numeric results) [facility] ([facility]) Negative results do not preclude influen za or RSV virus infection and should not be used as the sole basis for treatment or other patient management decisions. Influenza B Amplification Laboratory test result Normal (applies to non- numeric results) [facility] ([facility]) Negative results do not preclude influen za or RSV virus infection and should not be used as the sole basis for treatment or other patient management decisions. RSV Amplification Laboratory test result Normal (applies to non-numeric results) [facility] ([facility]) Negative results do not preclude influen za or RSV virus infection and should not be used as the sole basis for treatment or other patient management decisions. Laboratory test finding (navigational concept) Laboratory test r esult Normal (applies to non-numeric results) [facility] ([facility]) A false negative result may occur [...] pathogens. DISCLAIMER: Testing was performed using the [facility] SARS-CoV-2 test. This test was developed and its performance characteristics determined by [facility]. This test has not been FDA cleared [...] or revoked sooner. ID Date Data Source [id number] 03/12/2021 01:36:00 PM EDT [facility] ([facility]) Name Value Range Interpretation Code Description Data Kayleen rce(s) Supporting Document(s) Barbiturates Urine Laboratory test result Normal (applies to non-numeric results) [facility] ([facility]) Amphetamines Level Urine Laboratory test result Normal (applies to non-numeric results) [facility] ([facility]) Benzodiazepines Urine Laboratory test result [place] (applies to non-numeric results) [facility] ([facility]) Cannabinoids Urine Laboratory test result Above high cristine l [facility] ([facility]) Cocaine Metabolite Urine Laboratory test result Above high normal [facility] ([facility]) Methadone Urine Laboratory test result Normal (a pplies to non-numeric results) [facility] ([facility]) Opiates Urine Laboratory test result Normal (applies t o non-numeric results) [facility] ([facility]) Phencyclidine Urine Laboratory test result Cristine l (applies to non-numeric results) [facility] ([facility]) ALL PRESUMPTIVE POSITIVE FINDINGS AR E UNCONFIRMED [...] CALL THE LAB. ID Date Data Source [id number] 02/26/2021 01:24:00 PM EDT [facility] ([facility]) Name Value Range Interpretation Code Description Data Kayleen rce(s) Supporting Document(s) Cobalamin (Vitamin B12) [Mass/volume] in Serum or Plasma 353 pg/mL 2 32-1245 [facility] ([facility]) .~.~<DG1.3.1>D51.9</DG1.3.1><DG1.3.1>D51.9</DG1.3.1><DG1.3.1>E55.9</DG1.3.1><DG1 .3.1 Is patient fasting? N~.~.~<DG1.3.1>D51.9</DG1.3.1><DG1.3.1>D51.9</DG1.3.1><DG1.3.1>E55.9</DG1.3. .~.~<DG1.3.1> D51.9</DG1.3.1><DG1.3.1>D51.9</DG1.3.1><DG1.3.1>E55.9</DG1.3.1><DG1.3.1 .~.~<DG1.3.1>D51.9</DG1.3.1><DG1.3.1>D51.9</DG1.3.1><DG1.3.1>E55.9</DG1.3.1><DG1 .3.1 .~.~<DG1.3.1>D51.9</DG1.3.1><DG1.3.1> D51.9</DG1.3.1><DG1.3.1>E55.9</DG1.3.1><DG1.3.1 ID Date Data Source [id number] 02/26/2021 01:24:00 PM EDT [facility] ([facility]) Name Value Range Interpretation Code Description Data Kayleen rce(s) Supporting Document(s) CBC W/Automated Diff Laboratory test result [facility] ([facility]) COMPLETE BLOOD COUNT WBC 12.6 10^3/uL 4.2-11.0 Above high normal [facility] ([facility]) .~.~<DG1.3.1>D51.9</DG1.3.1><DG1.3.1>D51.9</DG1.3.1><DG1.3.1>E55.9</DG1.3.1><DG1 .3.1 Is patient fasting? N~.~.~<DG1.3.1>D51.9</DG1.3.1><DG1.3.1>D51.9</DG1.3.1><DG1.3.1>E55.9</DG1.3. .~.~<DG1.3.1> D51.9</DG1.3.1><DG1.3.1>D51.9</DG1.3.1><DG1.3.1>E55.9</DG1.3.1><DG1.3.1 .~.~<DG1.3.1>D51.9</DG1.3.1><DG1.3.1>D51.9</DG1.3.1><DG1.3.1>E55.9</DG1.3.1><DG1 .3.1 .~.~<DG1.3.1>D51.9</DG1.3.1><DG1.3.1> D51.9</DG1.3.1><DG1.3.1>E55.9</DG1.3.1><DG1.3.1 RBC 4.44 10^6/uL 4.20-5.40 [facility]) .~.~<DG1.3.1>D51.9</DG1.3.1><DG1.3.1>D51.9</DG1.3.1><DG1.3.1>E55.9</DG1.3.1><DG1 .3.1 Is patient fasting? N~.~.~<DG1.3.1>D51.9</DG1.3.1><DG1.3.1>D51.9</DG1.3.1><DG1.3.1>E55.9</DG1.3. .~.~<DG1.3.1> D51.9</DG1.3.1><DG1.3.1>D51.9</DG1.3.1><DG1.3.1>E55.9</DG1.3.1><DG1.3.1 .~.~<DG1.3.1>D51.9</DG1.3.1><DG1.3.1>D51.9</DG1.3.1><DG1.3.1>E55.9</DG1.3.1><DG1 .3.1 .~.~<DG1.3.1>D51.9</DG1.3.1><DG1.3.1> D51.9</DG1.3.1><DG1.3.1>E55.9</DG1.3.1><DG1.3.1 Hemoglobin 14.0 g/dL 12.0-16.0 [facility]) .~.~<DG1.3.1>D51.9</DG1.3.1><DG1.3.1>D51.9</DG1.3.1><DG1.3.1>E55.9</DG1.3.1><DG1 .3.1 Is patient fasting? N~.~.~<DG1.3.1>D51.9</DG1.3.1><DG1.3.1>D51.9</DG1.3.1><DG1.3.1>E55.9</DG1.3. .~.~<DG1.3.1> D51.9</DG1.3.1><DG1.3.1>D51.9</DG1.3.1><DG1.3.1>E55.9</DG1.3.1><DG1.3.1 .~.~<DG1.3.1>D51.9</DG1.3.1><DG1.3.1>D51.9</DG1.3.1><DG1.3.1>E55.9</DG1.3.1><DG1 .3.1 .~.~<DG1.3.1>D51.9</DG1.3.1><DG1.3.1> D51.9</DG1.3.1><DG1.3.1>E55.9</DG1.3.1><DG1.3.1 Hematocrit 41.6 % 37.0-47.0 [facility] ([facility]) .~.~<DG1.3.1>D51.9</DG1.3.1><DG1.3.1>D51.9</DG1.3.1><DG1.3.1>E55.9</DG1.3.1><DG1 .3.1 Is patient fasting? N~.~.~<DG1.3.1>D51.9</DG1.3.1><DG1.3.1>D51.9</DG1.3.1><DG1.3.1>E55.9</DG1.3. .~.~<DG1.3.1> D51.9</DG1.3.1><DG1.3.1>D51.9</DG1.3.1><DG1.3.1>E55.9</DG1.3.1><DG1.3.1 .~.~<DG1.3.1>D51.9</DG1.3.1><DG1.3.1>D51.9</DG1.3.1><DG1.3.1>E55.9</DG1.3.1><DG1 .3.1 .~.~<DG1.3.1>D51.9</DG1.3.1><DG1.3.1> D51.9</DG1.3.1><DG1.3.1>E55.9</DG1.3.1><DG1.3.1 MCV 93.7 fL 81.0-101 [facility] ([facility]) .~.~<DG1.3.1>D51.9</DG1.3.1><DG1.3.1>D51.9</DG1.3.1><DG1.3.1>E55.9</DG1.3.1><DG1 .3.1 Is patient fasting? N~.~.~<DG1.3.1>D51.9</DG1.3.1><DG1.3.1>D51.9</DG1.3.1><DG1.3.1>E55.9</DG1.3. .~.~<DG1.3.1> D51.9</DG1.3.1><DG1.3.1>D51.9</DG1.3.1><DG1.3.1>E55.9</DG1.3.1><DG1.3.1 .~.~<DG1.3.1>D51.9</DG1.3.1><DG1.3.1>D51.9</DG1.3.1><DG1.3.1>E55.9</DG1.3.1><DG1 .3.1 .~.~<DG1.3.1>D51.9</DG1.3.1><DG1.3.1> D51.9</DG1.3.1><DG1.3.1>E55.9</DG1.3.1><DG1.3.1 MCH 31.5 pg 27.0-34.0 [facility] ([facility]) .~.~<DG1.3.1>D51.9</DG1.3.1><DG1.3.1>D51.9</DG1.3.1><DG1.3.1>E55.9</DG1.3.1><DG1 .3.1 Is patient fasting? N~.~.~<DG1.3.1>D51.9</DG1.3.1><DG1.3.1>D51.9</DG1.3.1><DG1.3.1>E55.9</DG1.3. .~.~<DG1.3.1> D51.9</DG1.3.1><DG1.3.1>D51.9</DG1.3.1><DG1.3.1>E55.9</DG1.3.1><DG1.3.1 .~.~<DG1.3.1>D51.9</DG1.3.1><DG1.3.1>D51.9</DG1.3.1><DG1.3.1>E55.9</DG1.3.1><DG1 .3.1 .~.~<DG1.3.1>D51.9</DG1.3.1><DG1.3.1> D51.9</DG1.3.1><DG1.3.1>E55.9</DG1.3.1><DG1.3.1 MCHC 33.7 g/dL 31.0-36.0 [facility] ([facility]) .~.~<DG1.3.1>D51.9</DG1.3.1><DG1.3.1>D51.9</DG1.3.1><DG1.3.1>E55.9</DG1.3.1><DG1 .3.1 Is patient fasting? N~.~.~<DG1.3.1>D51.9</DG1.3.1><DG1.3.1>D51.9</DG1.3.1><DG1.3.1>E55.9</DG1.3. .~.~<DG1.3.1> D51.9</DG1.3.1><DG1.3.1>D51.9</DG1.3.1><DG1.3.1>E55.9</DG1.3.1><DG1.3.1 .~.~<DG1.3.1>D51.9</DG1.3.1><DG1.3.1>D51.9</DG1.3.1><DG1.3.1>E55.9</DG1.3.1><DG1 .3.1 .~.~<DG1.3.1>D51.9</DG1.3.1><DG1.3.1> D51.9</DG1.3.1><DG1.3.1>E55.9</DG1.3.1><DG1.3.1 RDW 13.9 % 11.5-14.5 [facility] ([facility]) .~.~<DG1.3.1>D51.9</DG1.3.1><DG1.3.1>D51.9</DG1.3.1><DG1.3.1>E55.9</DG1.3.1><DG1 .3.1 Is patient fasting? N~.~.~<DG1.3.1>D51.9</DG1.3.1><DG1.3.1>D51.9</DG1.3.1><DG1.3.1>E55.9</DG1.3. .~.~<DG1.3.1> D51.9</DG1.3.1><DG1.3.1>D51.9</DG1.3.1><DG1.3.1>E55.9</DG1.3.1><DG1.3.1 .~.~<DG1.3.1>D51.9</DG1.3.1><DG1.3.1>D51.9</DG1.3.1><DG1.3.1>E55.9</DG1.3.1><DG1 .3.1 .~.~<DG1.3.1>D51.9</DG1.3.1><DG1.3.1> D51.9</DG1.3.1><DG1.3.1>E55.9</DG1.3.1><DG1.3.1 Platelets 210 10^3/uL 150-450 [facility] ([facility]) .~.~<DG1.3.1>D51.9</DG1.3.1><DG1.3.1>D51.9</DG1.3.1><DG1.3.1>E55.9</DG1.3.1><DG1 .3.1 Is patient fasting? N~.~.~<DG1.3.1>D51.9</DG1.3.1><DG1.3.1>D51.9</DG1.3.1><DG1.3.1>E55.9</DG1.3. .~.~<DG1.3.1> D51.9</DG1.3.1><DG1.3.1>D51.9</DG1.3.1><DG1.3.1>E55.9</DG1.3.1><DG1.3.1 .~.~<DG1.3.1>D51.9</DG1.3.1><DG1.3.1>D51.9</DG1.3.1><DG1.3.1>E55.9</DG1.3.1><DG1 .3.1 .~.~<DG1.3.1>D51.9</DG1.3.1><DG1.3.1> D51.9</DG1.3.1><DG1.3.1>E55.9</DG1.3.1><DG1.3.1 MPV 9.1 fL 7.4-10.4 [facility] ([facility]) .~.~<DG1.3.1>D51.9</DG1.3.1><DG1.3.1>D51.9</DG1.3.1><DG1.3.1>E55.9</DG1.3.1><DG1 .3.1 Is patient fasting? N~.~.~<DG1.3.1>D51.9</DG1.3.1><DG1.3.1>D51.9</DG1.3.1><DG1.3.1>E55.9</DG1.3. .~.~<DG1.3.1> D51.9</DG1.3.1><DG1.3.1>D51.9</DG1.3.1><DG1.3.1>E55.9</DG1.3.1><DG1.3.1 .~.~<DG1.3.1>D51.9</DG1.3.1><DG1.3.1>D51.9</DG1.3.1><DG1.3.1>E55.9</DG1.3.1><DG1 .3.1 .~.~<DG1.3.1>D51.9</DG1.3.1><DG1.3.1> D51.9</DG1.3.1><DG1.3.1>E55.9</DG1.3.1><DG1.3.1 Lymph 24.8 % 25.0-40.0 Below low normal [facility] ( [facility]) .~.~<DG1.3.1>D51.9</DG1.3.1><DG1.3.1>D51.9</DG1.3.1><DG1.3.1>E55.9</DG1.3.1><DG1 .3.1 Is patient fasting? N~.~.~<DG1.3.1>D51.9</DG1.3.1><DG1.3.1>D51.9</DG1.3.1><DG1.3.1>E55.9</DG1.3. .~.~<DG1.3.1> D51.9</DG1.3.1><DG1.3.1>D51.9</DG1.3.1><DG1.3.1>E55.9</DG1.3.1><DG1.3.1 .~.~<DG1.3.1>D51.9</DG1.3.1><DG1.3.1>D51.9</DG1.3.1><DG1.3.1>E55.9</DG1.3.1><DG1 .3.1 .~.~<DG1.3.1>D51.9</DG1.3.1><DG1.3.1> D51.9</DG1.3.1><DG1.3.1>E55.9</DG1.3.1><DG1.3.1 Neut 66.7 % 37.0-80.0 [facility] ([facility]) .~.~<DG1.3.1>D51.9</DG1.3.1><DG1.3.1>D51.9</DG1.3.1><DG1.3.1>E55.9</DG1.3.1><DG1 .3.1 Is patient fasting? N~.~.~<DG1.3.1>D51.9</DG1.3.1><DG1.3.1>D51.9</DG1.3.1><DG1.3.1>E55.9</DG1.3. .~.~<DG1.3.1> D51.9</DG1.3.1><DG1.3.1>D51.9</DG1.3.1><DG1.3.1>E55.9</DG1.3.1><DG1.3.1 .~.~<DG1.3.1>D51.9</DG1.3.1><DG1.3.1>D51.9</DG1.3.1><DG1.3.1>E55.9</DG1.3.1><DG1 .3.1 .~.~<DG1.3.1>D51.9</DG1.3.1><DG1.3.1> D51.9</DG1.3.1><DG1.3.1>E55.9</DG1.3.1><DG1.3.1 [place] 6.6 % 3.0-8.[address] [facility] ([facility]) .~.~<DG1.3.1>D51.9</DG1.3.1><DG1.3.1>D51.9</DG1.3.1><DG1.3.1>E55.9</DG1.3.1><DG1 .3.1 Is patient fasting? N~.~.~<DG1.3.1>D51.9</DG1.3.1><DG1.3.1>D51.9</DG1.3.1><DG1.3.1>E55.9</DG1.3. .~.~<DG1.3.1> D51.9</DG1.3.1><DG1.3.1>D51.9</DG1.3.1><DG1.3.1>E55.9</DG1.3.1><DG1.3.1 .~.~<DG1.3.1>D51.9</DG1.3.1><DG1.3.1>D51.9</DG1.3.1><DG1.3.1>E55.9</DG1.3.1><DG1 .3.1 .~.~<DG1.3.1>D51.9</DG1.3.1><DG1.3.1> D51.9</DG1.3.1><DG1.3.1>E55.9</DG1.3.1><DG1.3.1 Eos 1.4 % 0.0-7.0 [facility] ([facility]) .~.~<DG1.3.1>D51.9</DG1.3.1><DG1.3.1>D51.9</DG1.3.1><DG1.3.1>E55.9</DG1.3.1><DG1 .3.1 Is patient fasting? N~.~.~<DG1.3.1>D51.9</DG1.3.1><DG1.3.1>D51.9</DG1.3.1><DG1.3.1>E55.9</DG1.3. .~.~<DG1.3.1> D51.9</DG1.3.1><DG1.3.1>D51.9</DG1.3.1><DG1.3.1>E55.9</DG1.3.1><DG1.3.1 .~.~<DG1.3.1>D51.9</DG1.3.1><DG1.3.1>D51.9</DG1.3.1><DG1.3.1>E55.9</DG1.3.1><DG1 .3.1 .~.~<DG1.3.1>D51.9</DG1.3.1><DG1.3.1> D51.9</DG1.3.1><DG1.3.1>E55.9</DG1.3.1><DG1.3.1 Baso 0.2 % 0.0-2.5 [facility] ([facility]) .~.~<DG1.3.1>D51.9</DG1.3.1><DG1.3.1>D51.9</DG1.3.1><DG1.3.1>E55.9</DG1.3.1><DG1 .3.1 Is patient fasting? N~.~.~<DG1.3.1>D51.9</DG1.3.1><DG1.3.1>D51.9</DG1.3.1><DG1.3.1>E55.9</DG1.3. .~.~<DG1.3.1> D51.9</DG1.3.1><DG1.3.1>D51.9</DG1.3.1><DG1.3.1>E55.9</DG1.3.1><DG1.3.1 .~.~<DG1.3.1>D51.9</DG1.3.1><DG1.3.1>D51.9</DG1.3.1><DG1.3.1>E55.9</DG1.3.1><DG1 .3.1 .~.~<DG1.3.1>D51.9</DG1.3.1><DG1.3.1> D51.9</DG1.3.1><DG1.3.1>E55.9</DG1.3.1><DG1.3.1 %Ig 0.3 % 0.0-0.0 Above high normal [facility] ([facility]) .~.~<DG1.3.1>D51.9</DG1.3.1><DG1.3.1>D51.9</DG1.3.1><DG1.3.1>E55.9</DG1.3.1><DG1 .3.1 Is patient fasting? N~.~.~<DG1.3.1>D51.9</DG1.3.1><DG1.3.1>D51.9</DG1.3.1><DG1.3.1>E55.9</DG1.3. .~.~<DG1.3.1> D51.9</DG1.3.1><DG1.3.1>D51.9</DG1.3.1><DG1.3.1>E55.9</DG1.3.1><DG1.3.1 .~.~<DG1.3.1>D51.9</DG1.3.1><DG1.3.1>D51.9</DG1.3.1><DG1.3.1>E55.9</DG1.3.1><DG1 .3.1 .~.~<DG1.3.1>D51.9</DG1.3.1><DG1.3.1> D51.9</DG1.3.1><DG1.3.1>E55.9</DG1.3.1><DG1.3.1 %NRBC 0.0 % 0.0-0.0 [facility] ([facility]) .~.~<DG1.3.1>D51.9</DG1.3.1><DG1.3.1>D51.9</DG1.3.1><DG1.3.1>E55.9</DG1.3.1><DG1 .3.1 Is patient fasting? N~.~.~<DG1.3.1>D51.9</DG1.3.1><DG1.3.1>D51.9</DG1.3.1><DG1.3.1>E55.9</DG1.3. .~.~<DG1.3.1> D51.9</DG1.3.1><DG1.3.1>D51.9</DG1.3.1><DG1.3.1>E55.9</DG1.3.1><DG1.3.1 .~.~<DG1.3.1>D51.9</DG1.3.1><DG1.3.1>D51.9</DG1.3.1><DG1.3.1>E55.9</DG1.3.1><DG1 .3.1 .~.~<DG1.3.1>D51.9</DG1.3.1><DG1.3.1> D51.9</DG1.3.1><DG1.3.1>E55.9</DG1.3.1><DG1.3.1 #Neut 8.36 10^3/uL 2.00-6.90 Above high normal [facility] ([facility]) .~.~<DG1.3.1>D51.9</DG1.3.1><DG1.3.1>D51.9</DG1.3.1><DG1.3.1>E55.9</DG1.3.1><DG1 .3.1 Is patient fasting? N~.~.~<DG1.3.1>D51.9</DG1.3.1><DG1.3.1>D51.9</DG1.3.1><DG1.3.1>E55.9</DG1.3. .~.~<DG1.3.1> D51.9</DG1.3.1><DG1.3.1>D51.9</DG1.3.1><DG1.3.1>E55.9</DG1.3.1><DG1.3.1 .~.~<DG1.3.1>D51.9</DG1.3.1><DG1.3.1>D51.9</DG1.3.1><DG1.3.1>E55.9</DG1.3.1><DG1 .3.1 .~.~<DG1.3.1>D51.9</DG1.3.1><DG1.3.1> D51.9</DG1.3.1><DG1.3.1>E55.9</DG1.3.1><DG1.3.1 #Lymph 3.12 10^3/uL 0.60-3.40 [facility] ([facility]) .~.~<DG1.3.1>D51.9</DG1.3.1><DG1.3.1>D51.9</DG1.3.1><DG1.3.1>E55.9</DG1.3.1><DG1 .3.1 Is patient fasting? N~.~.~<DG1.3.1>D51.9</DG1.3.1><DG1.3.1>D51.9</DG1.3.1><DG1.3.1>E55.9</DG1.3. .~.~<DG1.3.1> D51.9</DG1.3.1><DG1.3.1>D51.9</DG1.3.1><DG1.3.1>E55.9</DG1.3.1><DG1.3.1 .~.~<DG1.3.1>D51.9</DG1.3.1><DG1.3.1>D51.9</DG1.3.1><DG1.3.1>E55.9</DG1.3.1><DG1 .3.1 .~.~<DG1.3.1>D51.9</DG1.3.1><DG1.3.1> D51.9</DG1.3.1><DG1.3.1>E55.9</DG1.3.1><DG1.3.1 #Eos 0.18 10^3/uL 0.00-0.70 [facility] ([facility]) .~.~<DG1.3.1>D51.9</DG1.3.1><DG1.3.1>D51.9</DG1.3.1><DG1.3.1>E55.9</DG1.3.1><DG1 .3.1 Is patient fasting? N~.~.~<DG1.3.1>D51.9</DG1.3.1><DG1.3.1>D51.9</DG1.3.1><DG1.3.1>E55.9</DG1.3. .~.~<DG1.3.1> D51.9</DG1.3.1><DG1.3.1>D51.9</DG1.3.1><DG1.3.1>E55.9</DG1.3.1><DG1.3.1 .~.~<DG1.3.1>D51.9</DG1.3.1><DG1.3.1>D51.9</DG1.3.1><DG1.3.1>E55.9</DG1.3.1><DG1 .3.1 .~.~<DG1.3.1>D51.9</DG1.3.1><DG1.3.1> D51.9</DG1.3.1><DG1.3.1>E55.9</DG1.3.1><DG1.3.1 #[place] 0.83 10^3/uL 0.00-0.90 [facility] ([facility]) .~.~<DG1.3.1>D51.9</DG1.3.1><DG1.3.1>D51.9</DG1.3.1><DG1.3.1>E55.9</DG1.3.1><DG1 .3.1 Is patient fasting? N~.~.~<DG1.3.1>D51.9</DG1.3.1><DG1.3.1>D51.9</DG1.3.1><DG1.3.1>E55.9</DG1.3. .~.~<DG1.3.1> D51.9</DG1.3.1><DG1.3.1>D51.9</DG1.3.1><DG1.3.1>E55.9</DG1.3.1><DG1.3.1 .~.~<DG1.3.1>D51.9</DG1.3.1><DG1.3.1>D51.9</DG1.3.1><DG1.3.1>E55.9</DG1.3.1><DG1 .3.1 .~.~<DG1.3.1>D51.9</DG1.3.1><DG1.3.1> D51.9</DG1.3.1><DG1.3.1>E55.9</DG1.3.1><DG1.3.1 #Baso 0.03 10^3/uL 0.00-0.20 [facility] ([facility]) .~.~<DG1.3.1>D51.9</DG1.3.1><DG1.3.1>D51.9</DG1.3.1><DG1.3.1>E55.9</DG1.3.1><DG1 .3.1 Is patient fasting? N~.~.~<DG1.3.1>D51.9</DG1.3.1><DG1.3.1>D51.9</DG1.3.1><DG1.3.1>E55.9</DG1.3. .~.~<DG1.3.1> D51.9</DG1.3.1><DG1.3.1>D51.9</DG1.3.1><DG1.3.1>E55.9</DG1.3.1><DG1.3.1 .~.~<DG1.3.1>D51.9</DG1.3.1><DG1.3.1>D51.9</DG1.3.1><DG1.3.1>E55.9</DG1.3.1><DG1 .3.1 .~.~<DG1.3.1>D51.9</DG1.3.1><DG1.3.1> D51.9</DG1.3.1><DG1.3.1>E55.9</DG1.3.1><DG1.3.1 #Ig 0.04 10^3/uL 0.00-0.10 [facility] ([facility]) .~.~<DG1.3.1>D51.9</DG1.3.1><DG1.3.1>D51.9</DG1.3.1><DG1.3.1>E55.9</DG1.3.1><DG1 .3.1 Is patient fasting? N~.~.~<DG1.3.1>D51.9</DG1.3.1><DG1.3.1>D51.9</DG1.3.1><DG1.3.1>E55.9</DG1.3. .~.~<DG1.3.1> D51.9</DG1.3.1><DG1.3.1>D51.9</DG1.3.1><DG1.3.1>E55.9</DG1.3.1><DG1.3.1 .~.~<DG1.3.1>D51.9</DG1.3.1><DG1.3.1>D51.9</DG1.3.1><DG1.3.1>E55.9</DG1.3.1><DG1 .3.1 .~.~<DG1.3.1>D51.9</DG1.3.1><DG1.3.1> D51.9</DG1.3.1><DG1.3.1>E55.9</DG1.3.1><DG1.3.1 #NRBC 0.00 10^3/uL 0.00-0.[address] [facility] ([facility]) .~.~<DG1.3.1>D51.9</DG1.3.1><DG1.3.1>D51.9</DG1.3.1><DG1.3.1>E55.9</DG1.3.1><DG1 .3.1 Is patient fasting? N~.~.~<DG1.3.1>D51.9</DG1.3.1><DG1.3.1>D51.9</DG1.3.1><DG1.3.1>E55.9</DG1.3. .~.~<DG1.3.1> D51.9</DG1.3.1><DG1.3.1>D51.9</DG1.3.1><DG1.3.1>E55.9</DG1.3.1><DG1.3.1 .~.~<DG1.3.1>D51.9</DG1.3.1><DG1.3.1>D51.9</DG1.3.1><DG1.3.1>E55.9</DG1.3.1><DG1 .3.1 .~.~<DG1.3.1>D51.9</DG1.3.1><DG1.3.1> D51.9</DG1.3.1><DG1.3.1>E55.9</DG1.3.1><DG1.3.1 Manual Diff Laboratory test result [facility] ([facility]) .~.~<DG1.3.1>D51.9</DG1.3.1><DG1.3.1>D51.9</DG1.3.1><DG1.3.1>E55.9</DG1.3.1><DG1 .3.1 Is patient fasting? N~.~.~<DG1.3.1>D51.9</DG1.3.1><DG1.3.1>D51.9</DG1.3.1><DG1.3.1>E55.9</DG1.3. .~.~<DG1.3.1> D51.9</DG1.3.1><DG1.3.1>D51.9</DG1.3.1><DG1.3.1>E55.9</DG1.3.1><DG1.3.1 .~.~<DG1.3.1>D51.9</DG1.3.1><DG1.3.1>D51.9</DG1.3.1><DG1.3.1>E55.9</DG1.3.1><DG1 .3.1 .~.~<DG1.3.1>D51.9</DG1.3.1><DG1.3.1> D51.9</DG1.3.1><DG1.3.1>E55.9</DG1.3.1><DG1.3.1 RBC Morph Laboratory test result [facility] ([facility]) .~.~<DG1.3.1>D51.9</DG1.3.1><DG1.3.1>D51.9</DG1.3.1><DG1.3.1>E55.9</DG1.3.1><DG1 .3.1 Is patient fasting? N~.~.~<DG1.3.1>D51.9</DG1.3.1><DG1.3.1>D51.9</DG1.3.1><DG1.3.1>E55.9</DG1.3. .~.~<DG1.3.1> D51.9</DG1.3.1><DG1.3.1>D51.9</DG1.3.1><DG1.3.1>E55.9</DG1.3.1><DG1.3.1 .~.~<DG1.3.1>D51.9</DG1.3.1><DG1.3.1>D51.9</DG1.3.1><DG1.3.1>E55.9</DG1.3.1><DG1 .3.1 .~.~<DG1.3.1>D51.9</DG1.3.1><DG1.3.1> D51.9</DG1.3.1><DG1.3.1>E55.9</DG1.3.1><DG1.3.1 ID Date Data Source [id number] 02/26/2021 01:24:00 PM EDT [facility] ([facility]) Name Value Range Interpretation Code Description Data Kayleen rce(s) Supporting Document(s) Calcidiol [Mass/volume] in Serum or Plasma 23 ng/mL [facility] ([facility]) <content>VITAMIN-D(25HYDROXY)</content>< br/><content>Deficiency: <=20 ng/ml</content>
<content>Insufficiency: 21-29 ng/ml</content>
<content>Preferred level: => 30 ng/ml</content>
<conten t></content> ID Date Data Source [id number] 02/26/2021 01:24:00 PM EDT [facility] ([facility]) Name Value Range Interpretation Code Description Data Kayleen rce(s) Supporting Document(s) Iron 45 ug/dL 42-135 [facility] ([facility]) .~.~<DG1.3.1>D51.9</DG1.3.1><DG1.3.1>D51.9</DG1.3.1><DG1.3.1>E55.9</DG1.3.1><DG1 .3.1 Is patient fasting? N~.~.~<DG1.3.1>D51.9</DG1.3.1><DG1.3.1>D51.9</DG1.3.1><DG1.3.1>E55.9</DG1.3. .~.~<DG1.3.1> D51.9</DG1.3.1><DG1.3.1>D51.9</DG1.3.1><DG1.3.1>E55.9</DG1.3.1><DG1.3.1 .~.~<DG1.3.1>D51.9</DG1.3.1><DG1.3.1>D51.9</DG1.3.1><DG1.3.1>E55.9</DG1.3.1><DG1 .3.1 .~.~<DG1.3.1>D51.9</DG1.3.1><DG1.3.1> D51.9</DG1.3.1><DG1.3.1>E55.9</DG1.3.1><DG1.3.1 Uibc 215 ug/dL 112-347 [facility] ([facility]) .~.~<DG1.3.1>D51.9</DG1.3.1><DG1.3.1>D51.9</DG1.3.1><DG1.3.1>E55.9</DG1.3.1><DG1 .3.1 Is patient fasting? N~.~.~<DG1.3.1>D51.9</DG1.3.1><DG1.3.1>D51.9</DG1.3.1><DG1.3.1>E55.9</DG1.3. .~.~<DG1.3.1> D51.9</DG1.3.1><DG1.3.1>D51.9</DG1.3.1><DG1.3.1>E55.9</DG1.3.1><DG1.3.1 .~.~<DG1.3.1>D51.9</DG1.3.1><DG1.3.1>D51.9</DG1.3.1><DG1.3.1>E55.9</DG1.3.1><DG1 .3.1 .~.~<DG1.3.1>D51.9</DG1.3.1><DG1.3.1> D51.9</DG1.3.1><DG1.3.1>E55.9</DG1.3.1><DG1.3.1 Iron Sat 17 % [facility] ([facility]) .~.~<DG1.3.1>D51.9</DG1.3.1><DG1.3.1>D51.9</DG1.3.1><DG1.3.1>E55.9</DG1.3.1><DG1 .3.1 Is patient fasting? N~.~.~<DG1.3.1>D51.9</DG1.3.1><DG1.3.1>D51.9</DG1.3.1><DG1.3.1>E55.9</DG1.3. .~.~<DG1.3.1> D51.9</DG1.3.1><DG1.3.1>D51.9</DG1.3.1><DG1.3.1>E55.9</DG1.3.1><DG1.3.1 .~.~<DG1.3.1>D51.9</DG1.3.1><DG1.3.1>D51.9</DG1.3.1><DG1.3.1>E55.9</DG1.3.1><DG1 .3.1 .~.~<DG1.3.1>D51.9</DG1.3.1><DG1.3.1> D51.9</DG1.3.1><DG1.3.1>E55.9</DG1.3.1><DG1.3.1 Tibc 260 ug/dL 250-450 [facility] ([facility]) .~.~<DG1.3.1>D51.9</DG1.3.1><DG1.3.1>D51.9</DG1.3.1><DG1.3.1>E55.9</DG1.3.1><DG1 .3.1 Is patient fasting? N~.~.~<DG1.3.1>D51.9</DG1.3.1><DG1.3.1>D51.9</DG1.3.1><DG1.3.1>E55.9</DG1.3. .~.~<DG1.3.1> D51.9</DG1.3.1><DG1.3.1>D51.9</DG1.3.1><DG1.3.1>E55.9</DG1.3.1><DG1.3.1 .~.~<DG1.3.1>D51.9</DG1.3.1><DG1.3.1>D51.9</DG1.3.1><DG1.3.1>E55.9</DG1.3.1><DG1 .3.1 .~.~<DG1.3.1>D51.9</DG1.3.1><DG1.3.1> D51.9</DG1.3.1><DG1.3.1>E55.9</DG1.3.1><DG1.3.1 ID Date Data Source [id number] 02/26/2021 01:24:00 PM EDT [facility] ([facility]) Name Value Range Interpretation Code Description Data Kayleen rce(s) Supporting Document(s) Ferritin [Mass/volume] in Serum or Plasma 47.6 ng/mL 3.0-105 [facility] ([facility]) .~.~<DG1.3.1>D51.9</DG1.3.1><DG1.3.1>D51.9</DG1.3.1><DG1.3.1>E55.9</DG1.3.1><DG1 .3.1 Is patient fasting? N~.~.~<DG1.3.1>D51.9</DG1.3.1><DG1.3.1>D51.9</DG1.3.1><DG1.3.1>E55.9</DG1.3. .~.~<DG1.3.1> D51.9</DG1.3.1><DG1.3.1>D51.9</DG1.3.1><DG1.3.1>E55.9</DG1.3.1><DG1.3.1 .~.~<DG1.3.1>D51.9</DG1.3.1><DG1.3.1>D51.9</DG1.3.1><DG1.3.1>E55.9</DG1.3.1><DG1 .3.1 .~.~<DG1.3.1>D51.9</DG1.3.1><DG1.3.1> D51.9</DG1.3.1><DG1.3.1>E55.9</DG1.3.1><DG1.3.1 ID Date Data Source [id number] 02/26/2021 01:24:00 PM EDT [facility] ([facility]) Name Value Range Interpretation Code Description Data Kayleen rce(s) Supporting Document(s) Comprehensive [employer] Laboratory test result [facility] ([facility]) .~.~<DG1.3.1>D51.9</DG1.3.1><DG1.3.1>D51.9</DG1.3.1><DG1.3.1>E55.9</DG1.3.1><DG1 .3.1 Is patient fasting? N~.~.~<DG1.3.1>D51.9</DG1.3.1><DG1.3.1>D51.9</DG1.3.1><DG1.3.1>E55.9</DG1.3. .~.~<DG1.3.1> D51.9</DG1.3.1><DG1.3.1>D51.9</DG1.3.1><DG1.3.1>E55.9</DG1.3.1><DG1.3.1 .~.~<DG1.3.1>D51.9</DG1.3.1><DG1.3.1>D51.9</DG1.3.1><DG1.3.1>E55.9</DG1.3.1><DG1 .3.1 .~.~<DG1.3.1>D51.9</DG1.3.1><DG1.3.1> D51.9</DG1.3.1><DG1.3.1>E55.9</DG1.3.1><DG1.3.1 Sodium 138 meq/L 134-153 [facility] ([facility]) .~.~<DG1.3.1>D51.9</DG1.3.1><DG1.3.1>D51.9</DG1.3.1><DG1.3.1>E55.9</DG1.3.1><DG1 .3.1 Is patient fasting? N~.~.~<DG1.3.1>D51.9</DG1.3.1><DG1.3.1>D51.9</DG1.3.1><DG1.3.1>E55.9</DG1.3. .~.~<DG1.3.1> D51.9</DG1.3.1><DG1.3.1>D51.9</DG1.3.1><DG1.3.1>E55.9</DG1.3.1><DG1.3.1 .~.~<DG1.3.1>D51.9</DG1.3.1><DG1.3.1>D51.9</DG1.3.1><DG1.3.1>E55.9</DG1.3.1><DG1 .3.1 .~.~<DG1.3.1>D51.9</DG1.3.1><DG1.3.1> D51.9</DG1.3.1><DG1.3.1>E55.9</DG1.3.1><DG1.3.1 Potassium 4.0 meq/L 3.6-5.0 [facility] ([facility]) .~.~<DG1.3.1>D51.9</DG1.3.1><DG1.3.1>D51.9</DG1.3.1><DG1.3.1>E55.9</DG1.3.1><DG1 .3.1 Is patient fasting? N~.~.~<DG1.3.1>D51.9</DG1.3.1><DG1.3.1>D51.9</DG1.3.1><DG1.3.1>E55.9</DG1.3. .~.~<DG1.3.1> D51.9</DG1.3.1><DG1.3.1>D51.9</DG1.3.1><DG1.3.1>E55.9</DG1.3.1><DG1.3.1 .~.~<DG1.3.1>D51.9</DG1.3.1><DG1.3.1>D51.9</DG1.3.1><DG1.3.1>E55.9</DG1.3.1><DG1 .3.1 .~.~<DG1.3.1>D51.9</DG1.3.1><DG1.3.1> D51.9</DG1.3.1><DG1.3.1>E55.9</DG1.3.1><DG1.3.1 Chloride 104 meq/L 98-107 [facility] ([facility]) .~.~<DG1.3.1>D51.9</DG1.3.1><DG1.3.1>D51.9</DG1.3.1><DG1.3.1>E55.9</DG1.3.1><DG1 .3.1 Is patient fasting? N~.~.~<DG1.3.1>D51.9</DG1.3.1><DG1.3.1>D51.9</DG1.3.1><DG1.3.1>E55.9</DG1.3. .~.~<DG1.3.1> D51.9</DG1.3.1><DG1.3.1>D51.9</DG1.3.1><DG1.3.1>E55.9</DG1.3.1><DG1.3.1 .~.~<DG1.3.1>D51.9</DG1.3.1><DG1.3.1>D51.9</DG1.3.1><DG1.3.1>E55.9</DG1.3.1><DG1 .3.1 .~.~<DG1.3.1>D51.9</DG1.3.1><DG1.3.1> D51.9</DG1.3.1><DG1.3.1>E55.9</DG1.3.1><DG1.3.1 Glucose 100 mg/dL 70-99 Above high normal [facility] ([facility]) .~.~<DG1.3.1>D51.9</DG1.3.1><DG1.3.1>D51.9</DG1.3.1><DG1.3.1>E55.9</DG1.3.1><DG1 .3.1 Is patient fasting? N~.~.~<DG1.3.1>D51.9</DG1.3.1><DG1.3.1>D51.9</DG1.3.1><DG1.3.1>E55.9</DG1.3. .~.~<DG1.3.1> D51.9</DG1.3.1><DG1.3.1>D51.9</DG1.3.1><DG1.3.1>E55.9</DG1.3.1><DG1.3.1 .~.~<DG1.3.1>D51.9</DG1.3.1><DG1.3.1>D51.9</DG1.3.1><DG1.3.1>E55.9</DG1.3.1><DG1 .3.1 .~.~<DG1.3.1>D51.9</DG1.3.1><DG1.3.1> D51.9</DG1.3.1><DG1.3.1>E55.9</DG1.3.1><DG1.3.1 Co2 23 meq/L 22-30 [facility] ([facility]) .~.~<DG1.3.1>D51.9</DG1.3.1><DG1.3.1>D51.9</DG1.3.1><DG1.3.1>E55.9</DG1.3.1><DG1 .3.1 Is patient fasting? N~.~.~<DG1.3.1>D51.9</DG1.3.1><DG1.3.1>D51.9</DG1.3.1><DG1.3.1>E55.9</DG1.3. .~.~<DG1.3.1> D51.9</DG1.3.1><DG1.3.1>D51.9</DG1.3.1><DG1.3.1>E55.9</DG1.3.1><DG1.3.1 .~.~<DG1.3.1>D51.9</DG1.3.1><DG1.3.1>D51.9</DG1.3.1><DG1.3.1>E55.9</DG1.3.1><DG1 .3.1 .~.~<DG1.3.1>D51.9</DG1.3.1><DG1.3.1> D51.9</DG1.3.1><DG1.3.1>E55.9</DG1.3.1><DG1.3.1 BUN 12 mg/dL 7-21 [facility] ([facility]) .~.~<DG1.3.1>D51.9</DG1.3.1><DG1.3.1>D51.9</DG1.3.1><DG1.3.1>E55.9</DG1.3.1><DG1 .3.1 Is patient fasting? N~.~.~<DG1.3.1>D51.9</DG1.3.1><DG1.3.1>D51.9</DG1.3.1><DG1.3.1>E55.9</DG1.3. .~.~<DG1.3.1> D51.9</DG1.3.1><DG1.3.1>D51.9</DG1.3.1><DG1.3.1>E55.9</DG1.3.1><DG1.3.1 .~.~<DG1.3.1>D51.9</DG1.3.1><DG1.3.1>D51.9</DG1.3.1><DG1.3.1>E55.9</DG1.3.1><DG1 .3.1 .~.~<DG1.3.1>D51.9</DG1.3.1><DG1.3.1> D51.9</DG1.3.1><DG1.3.1>E55.9</DG1.3.1><DG1.3.1 BUN/Creat 20 8-27 [facility] ([facility]) .~.~<DG1.3.1>D51.9</DG1.3.1><DG1.3.1>D51.9</DG1.3.1><DG1.3.1>E55.9</DG1.3.1><DG1 .3.1 Is patient fasting? N~.~.~<DG1.3.1>D51.9</DG1.3.1><DG1.3.1>D51.9</DG1.3.1><DG1.3.1>E55.9</DG1.3. .~.~<DG1.3.1> D51.9</DG1.3.1><DG1.3.1>D51.9</DG1.3.1><DG1.3.1>E55.9</DG1.3.1><DG1.3.1 .~.~<DG1.3.1>D51.9</DG1.3.1><DG1.3.1>D51.9</DG1.3.1><DG1.3.1>E55.9</DG1.3.1><DG1 .3.1 .~.~<DG1.3.1>D51.9</DG1.3.1><DG1.3.1> D51.9</DG1.3.1><DG1.3.1>E55.9</DG1.3.1><DG1.3.1 Creatinine 0.6 mg/dL 0.7-1.5 Below low normal [facility] ( [facility]) .~.~<DG1.3.1>D51.9</DG1.3.1><DG1.3.1>D51.9</DG1.3.1><DG1.3.1>E55.9</DG1.3.1><DG1 .3.1 Is patient fasting? N~.~.~<DG1.3.1>D51.9</DG1.3.1><DG1.3.1>D51.9</DG1.3.1><DG1.3.1>E55.9</DG1.3. .~.~<DG1.3.1> D51.9</DG1.3.1><DG1.3.1>D51.9</DG1.3.1><DG1.3.1>E55.9</DG1.3.1><DG1.3.1 .~.~<DG1.3.1>D51.9</DG1.3.1><DG1.3.1>D51.9</DG1.3.1><DG1.3.1>E55.9</DG1.3.1><DG1 .3.1 .~.~<DG1.3.1>D51.9</DG1.3.1><DG1.3.1> D51.9</DG1.3.1><DG1.3.1>E55.9</DG1.3.1><DG1.3.1 Total Protein 7.1 g/dL 6.3-8.2 [facility]) .~.~<DG1.3.1>D51.9</DG1.3.1><DG1.3.1>D51.9</DG1.3.1><DG1.3.1>E55.9</DG1.3.1><DG1 .3.1 Is patient fasting? N~.~.~<DG1.3.1>D51.9</DG1.3.1><DG1.3.1>D51.9</DG1.3.1><DG1.3.1>E55.9</DG1.3. .~.~<DG1.3.1> D51.9</DG1.3.1><DG1.3.1>D51.9</DG1.3.1><DG1.3.1>E55.9</DG1.3.1><DG1.3.1 .~.~<DG1.3.1>D51.9</DG1.3.1><DG1.3.1>D51.9</DG1.3.1><DG1.3.1>E55.9</DG1.3.1><DG1 .3.1 .~.~<DG1.3.1>D51.9</DG1.3.1><DG1.3.1> D51.9</DG1.3.1><DG1.3.1>E55.9</DG1.3.1><DG1.3.1 Albumin 4.8 g/dL 3.9-5.[address] [facility] ([facility]) .~.~<DG1.3.1>D51.9</DG1.3.1><DG1.3.1>D51.9</DG1.3.1><DG1.3.1>E55.9</DG1.3.1><DG1 .3.1 Is patient fasting? N~.~.~<DG1.3.1>D51.9</DG1.3.1><DG1.3.1>D51.9</DG1.3.1><DG1.3.1>E55.9</DG1.3. .~.~<DG1.3.1> D51.9</DG1.3.1><DG1.3.1>D51.9</DG1.3.1><DG1.3.1>E55.9</DG1.3.1><DG1.3.1 .~.~<DG1.3.1>D51.9</DG1.3.1><DG1.3.1>D51.9</DG1.3.1><DG1.3.1>E55.9</DG1.3.1><DG1 .3.1 .~.~<DG1.3.1>D51.9</DG1.3.1><DG1.3.1> D51.9</DG1.3.1><DG1.3.1>E55.9</DG1.3.1><DG1.3.1 A/G Ratio 2.1 0.8-2.0 Above high normal [facility] ([facility]) .~.~<DG1.3.1>D51.9</DG1.3.1><DG1.3.1>D51.9</DG1.3.1><DG1.3.1>E55.9</DG1.3.1><DG1 .3.1 Is patient fasting? N~.~.~<DG1.3.1>D51.9</DG1.3.1><DG1.3.1>D51.9</DG1.3.1><DG1.3.1>E55.9</DG1.3. .~.~<DG1.3.1> D51.9</DG1.3.1><DG1.3.1>D51.9</DG1.3.1><DG1.3.1>E55.9</DG1.3.1><DG1.3.1 .~.~<DG1.3.1>D51.9</DG1.3.1><DG1.3.1>D51.9</DG1.3.1><DG1.3.1>E55.9</DG1.3.1><DG1 .3.1 .~.~<DG1.3.1>D51.9</DG1.3.1><DG1.3.1> D51.9</DG1.3.1><DG1.3.1>E55.9</DG1.3.1><DG1.3.1 Globulin 2.3 GM/DL 2.4-3.2 Below low normal [facility] ( [facility]) .~.~<DG1.3.1>D51.9</DG1.3.1><DG1.3.1>D51.9</DG1.3.1><DG1.3.1>E55.9</DG1.3.1><DG1 .3.1 Is patient fasting? N~.~.~<DG1.3.1>D51.9</DG1.3.1><DG1.3.1>D51.9</DG1.3.1><DG1.3.1>E55.9</DG1.3. .~.~<DG1.3.1> D51.9</DG1.3.1><DG1.3.1>D51.9</DG1.3.1><DG1.3.1>E55.9</DG1.3.1><DG1.3.1 .~.~<DG1.3.1>D51.9</DG1.3.1><DG1.3.1>D51.9</DG1.3.1><DG1.3.1>E55.9</DG1.3.1><DG1 .3.1 .~.~<DG1.3.1>D51.9</DG1.3.1><DG1.3.1> D51.9</DG1.3.1><DG1.3.1>E55.9</DG1.3.1><DG1.3.1 Alkaline Phos 75 U/L 38-126 [facility] ([facility]) .~.~<DG1.3.1>D51.9</DG1.3.1><DG1.3.1>D51.9</DG1.3.1><DG1.3.1>E55.9</DG1.3.1><DG1 .3.1 Is patient fasting? N~.~.~<DG1.3.1>D51.9</DG1.3.1><DG1.3.1>D51.9</DG1.3.1><DG1.3.1>E55.9</DG1.3. .~.~<DG1.3.1> D51.9</DG1.3.1><DG1.3.1>D51.9</DG1.3.1><DG1.3.1>E55.9</DG1.3.1><DG1.3.1 .~.~<DG1.3.1>D51.9</DG1.3.1><DG1.3.1>D51.9</DG1.3.1><DG1.3.1>E55.9</DG1.3.1><DG1 .3.1 .~.~<DG1.3.1>D51.9</DG1.3.1><DG1.3.1> D51.9</DG1.3.1><DG1.3.1>E55.9</DG1.3.1><DG1.3.1 Total Bili Laboratory test result 0.2-1.3 [facility] ([facility]) .~.~<DG1.3.1>D51.9</DG1.3.1><DG1.3.1>D51.9</DG1.3.1><DG1.3.1>E55.9</DG1.3.1><DG1 .3.1 Is patient fasting? N~.~.~<DG1.3.1>D51.9</DG1.3.1><DG1.3.1>D51.9</DG1.3.1><DG1.3.1>E55.9</DG1.3. .~.~<DG1.3.1> D51.9</DG1.3.1><DG1.3.1>D51.9</DG1.3.1><DG1.3.1>E55.9</DG1.3.1><DG1.3.1 .~.~<DG1.3.1>D51.9</DG1.3.1><DG1.3.1>D51.9</DG1.3.1><DG1.3.1>E55.9</DG1.3.1><DG1 .3.1 .~.~<DG1.3.1>D51.9</DG1.3.1><DG1.3.1> D51.9</DG1.3.1><DG1.3.1>E55.9</DG1.3.1><DG1.3.1 Calcium 9.6 mg/dL 8.4-10.2 [facility] ([facility]) .~.~<DG1.3.1>D51.9</DG1.3.1><DG1.3.1>D51.9</DG1.3.1><DG1.3.1>E55.9</DG1.3.1><DG1 .3.1 Is patient fasting? N~.~.~<DG1.3.1>D51.9</DG1.3.1><DG1.3.1>D51.9</DG1.3.1><DG1.3.1>E55.9</DG1.3. .~.~<DG1.3.1> D51.9</DG1.3.1><DG1.3.1>D51.9</DG1.3.1><DG1.3.1>E55.9</DG1.3.1><DG1.3.1 .~.~<DG1.3.1>D51.9</DG1.3.1><DG1.3.1>D51.9</DG1.3.1><DG1.3.1>E55.9</DG1.3.1><DG1 .3.1 .~.~<DG1.3.1>D51.9</DG1.3.1><DG1.3.1> D51.9</DG1.3.1><DG1.3.1>E55.9</DG1.3.1><DG1.3.1 SGPT/Alt 11 U/L 7-56 [facility] ([facility]) .~.~<DG1.3.1>D51.9</DG1.3.1><DG1.3.1>D51.9</DG1.3.1><DG1.3.1>E55.9</DG1.3.1><DG1 .3.1 Is patient fasting? N~.~.~<DG1.3.1>D51.9</DG1.3.1><DG1.3.1>D51.9</DG1.3.1><DG1.3.1>E55.9</DG1.3. .~.~<DG1.3.1> D51.9</DG1.3.1><DG1.3.1>D51.9</DG1.3.1><DG1.3.1>E55.9</DG1.3.1><DG1.3.1 .~.~<DG1.3.1>D51.9</DG1.3.1><DG1.3.1>D51.9</DG1.3.1><DG1.3.1>E55.9</DG1.3.1><DG1 .3.1 .~.~<DG1.3.1>D51.9</DG1.3.1><DG1.3.1> D51.9</DG1.3.1><DG1.3.1>E55.9</DG1.3.1><DG1.3.1 Sgot/Ast 13 U/L 5-40 [facility] ([facility]) .~.~<DG1.3.1>D51.9</DG1.3.1><DG1.3.1>D51.9</DG1.3.1><DG1.3.1>E55.9</DG1.3.1><DG1 .3.1 Is patient fasting? N~.~.~<DG1.3.1>D51.9</DG1.3.1><DG1.3.1>D51.9</DG1.3.1><DG1.3.1>E55.9</DG1.3. .~.~<DG1.3.1> D51.9</DG1.3.1><DG1.3.1>D51.9</DG1.3.1><DG1.3.1>E55.9</DG1.3.1><DG1.3.1 .~.~<DG1.3.1>D51.9</DG1.3.1><DG1.3.1>D51.9</DG1.3.1><DG1.3.1>E55.9</DG1.3.1><DG1 .3.1 .~.~<DG1.3.1>D51.9</DG1.3.1><DG1.3.1> D51.9</DG1.3.1><DG1.3.1>E55.9</DG1.3.1><DG1.3.1 Anion Gap 11.0 mmol/L 8.0-16.[address] [facility] ([facility]) .~.~<DG1.3.1>D51.9</DG1.3.1><DG1.3.1>D51.9</DG1.3.1><DG1.3.1>E55.9</DG1.3.1><DG1 .3.1 Is patient fasting? N~.~.~<DG1.3.1>D51.9</DG1.3.1><DG1.3.1>D51.9</DG1.3.1><DG1.3.1>E55.9</DG1.3. .~.~<DG1.3.1> D51.9</DG1.3.1><DG1.3.1>D51.9</DG1.3.1><DG1.3.1>E55.9</DG1.3.1><DG1.3.1 .~.~<DG1.3.1>D51.9</DG1.3.1><DG1.3.1>D51.9</DG1.3.1><DG1.3.1>E55.9</DG1.3.1><DG1 .3.1 .~.~<DG1.3.1>D51.9</DG1.3.1><DG1.3.1> D51.9</DG1.3.1><DG1.3.1>E55.9</DG1.3.1><DG1.3.1 Age 35 yrs [facility] ([facility]) .~.~<DG1.3.1>D51.9</DG1.3.1><DG1.3.1>D51.9</DG1.3.1><DG1.3.1>E55.9</DG1.3.1><DG1 .3.1 Is patient fasting? N~.~.~<DG1.3.1>D51.9</DG1.3.1><DG1.3.1>D51.9</DG1.3.1><DG1.3.1>E55.9</DG1.3. .~.~<DG1.3.1> D51.9</DG1.3.1><DG1.3.1>D51.9</DG1.3.1><DG1.3.1>E55.9</DG1.3.1><DG1.3.1 .~.~<DG1.3.1>D51.9</DG1.3.1><DG1.3.1>D51.9</DG1.3.1><DG1.3.1>E55.9</DG1.3.1><DG1 .3.1 .~.~<DG1.3.1>D51.9</DG1.3.1><DG1.3.1> D51.9</DG1.3.1><DG1.3.1>E55.9</DG1.3.1><DG1.3.1 Afr Amer GFR Laboratory test result [facility] ([facility]) .~.~<DG1.3.1>D51.9</DG1.3.1><DG1.3.1>D51.9</DG1.3.1><DG1.3.1>E55.9</DG1.3.1><DG1 .3.1 Is patient fasting? N~.~.~<DG1.3.1>D51.9</DG1.3.1><DG1.3.1>D51.9</DG1.3.1><DG1.3.1>E55.9</DG1.3. .~.~<DG1.3.1> D51.9</DG1.3.1><DG1.3.1>D51.9</DG1.3.1><DG1.3.1>E55.9</DG1.3.1><DG1.3.1 .~.~<DG1.3.1>D51.9</DG1.3.1><DG1.3.1>D51.9</DG1.3.1><DG1.3.1>E55.9</DG1.3.1><DG1 .3.1 .~.~<DG1.3.1>D51.9</DG1.3.1><DG1.3.1> D51.9</DG1.3.1><DG1.3.1>E55.9</DG1.3.1><DG1.3.1 Non-Aa GFR Laboratory test result [facility] ([facility]) .~.~<DG1.3.1>D51.9</DG1.3.1><DG1.3.1>D51.9</DG1.3.1><DG1.3.1>E55.9</DG1.3.1><DG1 .3.1 Is patient fasting? N~.~.~<DG1.3.1>D51.9</DG1.3.1><DG1.3.1>D51.9</DG1.3.1><DG1.3.1>E55.9</DG1.3. .~.~<DG1.3.1> D51.9</DG1.3.1><DG1.3.1>D51.9</DG1.3.1><DG1.3.1>E55.9</DG1.3.1><DG1.3.1 .~.~<DG1.3.1>D51.9</DG1.3.1><DG1.3.1>D51.9</DG1.3.1><DG1.3.1>E55.9</DG1.3.1><DG1 .3.1 .~.~<DG1.3.1>D51.9</DG1.3.1><DG1.3.1> D51.9</DG1.3.1><DG1.3.1>E55.9</DG1.3.1><DG1.3.1 ID Date Data Source [id number] 02/26/2021 02:27:00 PM EDT [facility] Value Range Interpretation Code Description Data Kayleen rce(s) Supporting Document(s) Ferritin [Mass/volume] in Serum or Plasma 47.6 ng/mL 3.0 - 105 [facility] ID Date Data Source [id number] 02/26/2021 02:27:00 PM EDT [facility] Name Value Range Interpretation Code Description Data Kayleen rce(s) Supporting Document(s) Calcidiol [Moles/volume] in Serum or Plasma 23 NG/ML [facility] VITAMIN-D(2 5HYDROXY) Deficiency: <=20 ng/ml Insufficiency: 21-29 ng/ml Preferred level: => 30 ng/ml ID Date Data Source [id number] 02/26/2021 02:27:00 PM EDT [facility] Name Value Range Interpretation Code Description Data Kayleen rce(s) Supporting Document(s) Cobalamin (Vitamin B12) [Mass/volume] in Serum or Plasma 353 PG/ML 232 - 1245 [facility] ID Date Data Source [id number] 02/26/2021 02:08:00 PM EDT [facility] Name Value Range Interpretation Code Description Data Kayleen e(s) Supporting Document(s) COMPREHENSIVE METABOLIC PANEL [facility] COMPREHENSIVE METABOLIC PANEL Sodium [Moles/volume] in Serum or Plasma 138 mEq/L 134 - 153 [facility] Potassium [Moles/volume] in Serum or Plasma 4.0 mEq/L 3.6 - 5.0 [facility] Chloride [Moles/volume] in Serum or Plasma 104 mEq/L 98 - 107 [facility] Carbon dioxide, total [Moles/volume] in Serum or Plasma 23 MEQ/L 22 - 30 [facility] Glucose [Mass/volume] in Serum or Plasma 100 MG/DL 70 - 99 H [facility] B[facility] 12 [facility] 7 - [facility] Creat[facility] [Mass/volume] in Serum or Plasma 0.6 MG/DL 0.7 - 1.5 L [facility] BUN/CREAT 20 8 - [facility] Protein [Mass/volume] in Serum or Plasma 7.1 G/DL 6.3 - 8.2 [facility] Albumin [Mass/volume] in Serum or Plasma 4.8 G/DL 3.9 - 5.0 [facility] Globulin [Mass/volume] in Serum by calculation 2.3 GM/DL 2.4 - 3.2 L [facility] A/G RATIO 2.1 0.8 - 2.0 [facility] Calcium [Mass/volume] in Serum or Plasma 9.6 MG/DL 8.4 - 10.2 [facility] Bilirubin.total [Mass/volume] in Serum or Plasma <0.7 MG/DL 0.2 - 1.3 [facility] Alkaline phosphatase [Enzymatic activity/volume] in Serum or Plasma 75 U/L 38 - 126 [facility] Aspartate aminotransferase [Enzymatic activity/volume] in Serum or Plasma 13 U/L 5 - 40 [facility] Alanine aminotransferase [Enzymatic activity/volume] in Seru m or Plasma 11 U/L 7 - 56 [facility] Anion gap 3 in Serum or Plasma 11.0 mmol/L 8.0 - 16.0 [facility] 35 [facility]60 mL/min [facility] Hosp ital AFR AMER GFR >60 mL/min [facility] Ho spital Male GFR In terprentation 20-49 [...] >32 mL/min Normal ID Date Data Source [id number] 02/26/2021 02:04:00 PM EDT [facility] Name Value Range Interpretation Code Description Data Kayleen rce(s) Supporting Document(s) Iron [Mass/volume] in Serum or Plasma 45 UG/DL 42 - 135 [facility] Iron binding capacity.unsaturated [Mass/volume] in Serum or Plasma 215 UG/DL 112 - 347 [facility] Iron binding capacity [Mass/volume] in Serum or Plasma 260 ug/dL 250 - 450 [facility] Iron saturation [Mass Fraction] in Serum or Plasma 17 % [facility] ID Date Data Source [id number] 02/26/2021 01:43:00 PM EDT [facility] Name Value Range Interpretation Code Description Data Kayleen rce(s) Supporting Document(s) CBC W/AUTOMATED DIFF [facility] COMPLETE BLOOD COUNT Leukocytes [#/volume] in Blood by Automated count 12.6 10^3/uL 4.2 - 11.0 H [facility] Erythrocytes [#/volume] in Blood by Automated count 4.44 10^6/uL 4. 20 - 5.40 [facility] Hemoglobin [Mass/volume] in Blood 14.0 g/dL 12.0 - 16.0 [facility] Hematocrit [Volume Fraction] of Blood by Automated count 41.6 % 3 7.0 - 47.0 [facility] Erythrocyte mean corpuscular volume [Entitic volume] by Auto mated count 93.7 fL 81.0 - 101 [facility] Erythrocyte mean corpuscular hemoglobin [Entitic mass] by Automated count 31.5 pg 27.0 - 34.0 [facility] Erythrocyte mean corpuscular hemoglobin concentration [Mass/volume] by Automated count 33.7 g/dL 31.0 - 36.0 [facility] Erythrocyte distribution width [Ratio] by Automated count 13.9 % 11.5 - 14.5 [facility] Platelets [#/volume] in Blood by Automated count 210 10^3/uL 150 - 45 0 [facility] Platelet mean volume [Entitic volume] in Blood by Automated count 9.1 fL 7.4 - 10.4 [facility] Neutrophils/100 leukocytes in Blood by Automated count 66.7 % 37. 0 - 80.0 [facility] Lymphocytes/100 leukocytes in Blood by Manual count 24.8 % 25.0 - 40.0 L [facility] Monocytes/100 leukocytes in Blood by Automated count 6.6 % 3.0 - 8.0 [facility] Eosinophils/100 leukocytes in Blood by Automated count 1.4 % 0.0 - 7.0 [facility] Basophils/100 leukocytes in Blood by Automated count 0.2 % 0.0 - 2.5 [facility] %IG 0.3 % 0.0 - 0.0 [facility]NRBC 0.0 % 0.0 - 0.0 [facility] al Neutrophils [#/volume] in Blood by Automated count 8.36 10^3/uL 2.00 - 6.90 H [facility] Lymphocytes [#/volume] in Blood by Automated count 3.12 10^3/uL 0.60 - 3.40 [facility] Monocytes [#/volume] in Blood by Automated count 0.83 10^3/uL 0.00 - 0.90 [facility] Eosinophils [#/volume] in Blood by Automated count 0.18 10^3/uL 0.00 - 0.70 [facility] Basophils [#/volume] in Blood by Automated count 0.03 10^3/uL 0.00 - 0.20 [facility] #IG 0.04 10^3/uL 0.00 - 0.10 [facility] ospital #NRBC 0.00 10^3/uL 0.00 - 0.00 [facility] ospital MANUAL DIFF NOT INDICATED [facility] RBC MORPH NOT INDICATED [facility] spital ID Date Data Source [id number] 02/26/2021 01:22:00 PM EDT [facility] ([facility]) Name Value Range Interpretation Code Description Data Kayleen rce(s) Supporting Document(s) Treponema pallidum Ab [Presence] in Serum Laboratory test result [facility] ([facility]) Hepatitis B virus surface Ag [Presence] in Serum or Pl asma by Immunoassay Laboratory test result [facility] ([facility]) Laboratory test finding (navigational concept) Laboratory test resu lt 0.0-0.9 [facility] ([facility]) ID Date Data Source [id number] 02/26/2021 01:22:00 PM EDT [facility] ([facility]) Name Value Range Interpretation Code Description Data Kayleen rce(s) Supporting Document(s) HIV Screen 4thGeneration wRfx Laboratory test result [facility] ([facility]) ID Date Data Source [id number] 02/26/2021 01:22:00 PM EDT [facility] ([facility]) Name Value Range Interpretation Code Description Data Kayleen rce(s) Supporting Document(s) HSV 2 IgG, Type Spec 2.06 index 0.00-0.90 Above high normal [facility] ([facility]) <content>Negative <0.91</content>
<content>Equivocal 0.91 - 1.09</content>
<content>Positive >1.09</content>
<content>Note: Negative indicates no antibodies detected to</content>
<content>HSV-2. Equivocal may suggest early infection. If</content>
<content>clinically appropriate, retest at later date. Positive</content>
<content>indicates antibodies detected to HSV-2.</content>
<content></content> HSV 1 IgG, Type Spec Laboratory test result 0.00-0.[address] [facility] ([facility]) <content>Negative <0.91</content>
<content>Equivocal 0.91 - 1.09</content>
<content>Positive >1.09</content>
<content>Note: Negative indicates no antibodies detected to</content>
<content>HSV-1. Equivocal may suggest early infection. If</content>
<content>clinically appropriate, retest at later date. Positive</content>
<content>indicates antibodies detected to HSV-1.</content>
<content></content> Laboratory test finding (navigational concept) Laboratory test r esult Abnormal (applies to non-numeric results) 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 Positive/Equivocal Negative Unable to confirm the presence of IgG antibodies to HSV-2. Recommend retesting in 2-4 weeks. ID Date Data Source [id number] 02/26/2021 01:22:00 PM EDT [facility] ([facility]) Name Value Range Interpretation Code Description Data Kayleen rce(s) Supporting Document(s) HSV, IgM I/II Combination Laboratory test result 0.00-0.90 [facility] ([facility]) <content>Negative <0.91</content>
<content>Equivocal 0.91 - 1.09</content>
<content>Positive >1.09</content>
<content></content> ID Date Data Source [id number] 02/26/2021 01:22:00 PM EDT [facility] ([facility]) Name Value Range Interpretation Code Description Data Kayleen rce(s) Supporting Document(s) Fibrosis Score 0.02 NA 0.00-0.21 [facility] ([facility]) Fibrosis Stage Laboratory test result [facility] ([facility]) F0 - No fibrosis Necroinflammat ActivityScore 0.03 NA 0.00-0.17 [facility] ([facility]) Necroinflammat ActivityGrade Laboratory test result [facility] ([facility]) Haptoglobin 228 mg/dL 33-278 [facility] ([facility]) Alpha 2-Macroglobulins,Qn 157 mg/dL 110-276 [facility] ([facility]) GGT 12 IU/L 0-60 [facility] ([facility]) Apolipoprotein A-1 105 mg/dL 116-209 Below low normal [facility] ([facility]) Bilirubin, Total 0.1 mg/dL 0.0-1.2 [facility] ([facility]) Laboratory test finding (navigational concept) Laboratory test result [facility] ([facility]) Quantitative results of 6 biochemical te sts are analyzed using a computational algorithm to provide a quantitative surrogate marker (0.0-1.0) for liver fibrosis (METAVIR F0-F4) and for necroinflammatory activity (METAVIR A0-A3). Alt (SGPT) P5P 13 IU/L 0-40 [facility] ([facility]) Laboratory test finding (navigational concept) Laboratory test result [facility] ([facility]) <content><=0.21 = Stage F0 - No fibrosis [...] finding (navigational concept) Laboratory test result [facility] ([facility]) <content>The negative predictive value o f a [...] finding (navigational concept) Laboratory test result [facility] ([facility]) <content><0.17 = Grade A0 - No Activity< /content>
<content>0.17 - 0.29 = Grade A0 - A1</content>
<content>0.29 - 0.36 = Grade A1 - Minimal activity</content>
<content>0.36 - 0.52 = Grade A1 - A2</content>
<content>0.52 - 0.60 = Grade A2 - Moderate activity</content>
<content>0.60 - 0.62 = Grade A2 - A3</content>
<content>>0.62 = Grade A3 - Severe activity</content>
<content></content> Comment: Laboratory test result [facility] ([facility]) ID Date Data Source [id number] 03/02/2021 07:41:00 AM EDT [facility] Name Value Range Interpretation Code Description Data Kayleen rce(s) Supporting Document(s) Fibrosis score 0.02 NA 0.00-0.21 [facility] ospital Fibrosis stage COMMENT [facility]spital F0 - No fibrosis Necroinflammatory activity score 0.03 NA 0.00-0.17 [facility] Necroinflammatory activity grade A0-No activity [facility] [id number] [Mass/volume] in Serum or Plasma 157 mg/dL 110 -276 [facility] Haptoglobin [Mass/volume] in Serum or Plasma 228 mg/dL 33-278 [facility] Apolipoprotein A-I [Mass/volume] in Serum or Plasma 105 mg/dL 116-20 9 L [facility] Bilirubin.total [Mass/volume] in Serum or Plasma 0.1 mg/dL 0.0-1.2 [facility] Gamma glutamyl transferase [Enzymatic activity/volume] in Serum or Plasma 12 IU/L 0-60 [facility] Alanine aminotransferase [Enzymatic acti vity/volume] in Serum or Plasma by With P-5'-P 13 IU/L 0-40 [facility] Interpretations: COMMENT [facility] Quantitative results of 6 biochemical te sts are analyzed usinga computational algorithm to provide a quantitative surrogatemarker (0.0-1.0) for liver fibrosis (METAVIR F0-F4) and fornecroinflammatory activity (METAVIR A0-A3). Fibrosis Scoring: COMMENT [facility] <=0.21 = Stage F0 - No [...] Stage F4 - Cirrhosis Necroinflamm ActivityScoring: COMMENT [facility] <0.17 = Grade A0 - No Activity0.17 - 0.29 = Grade A0 - A10.29 - 0.36 = Grade A1 - Minimal activity0.36 - 0.52 = Grade A1 - A20.52 - 0.60 = Grade A2 - Moderate activity0.60 - 0.62 = Grade A2 - A3 >0.62 = Grade A3 - Severe activity Service comment COMMENT [facility] The negative predictive value of a Fibro [...] comment [Text] in Report Narrative WILL FOLLOW [facility] ID Date Data Source [id number] 02/28/2021 04:18:00 PM EDT [facility] Name Value Range Interpretation Code Description Data Kayleen rce(s) Supporting Document(s) Herpes simplex virus 1+2 IgM Ab [Units/volume] in Seru m by Immunoassay <0.91 Ratio 0.00-0.90 [facility] Negative <0.91 Equivocal 0.91 - 1.09 Positive >1.09 ID Date Data Source [id number] 02/27/2021 04:56:00 PM EDT [facility] Name Value Range Interpretation Code Description Data Kayleen rce(s) Supporting Document(s) Herpes simplex virus 1 IgG Ab [Units/volume] in Serum by Immunoassay <0.91 index 0.00-0.90 [facility] Negative <0.91 Equivocal 0.91 - 1.09 Positive >1.09 Note: Negative indicates no antibodies detected to HSV-1. Equivocal may suggest early infection. If clinically appropriate, retest at later date. Positive indicates antibodies detected to HSV-1. Herpes simplex virus 2 IgG Ab [Units/volume] in Serum by Imm unoassay 2.06 index 0.00-0.90 H [facility] Negative <0.91 Equivocal 0.91 - 1.09 Positive >1.09 Note: Negative indicates no antibodies detected to HSV-2. Equivocal may suggest early infection. If clinically appropriate, retest at later date. Positive indicates antibodies detected to HSV-2. 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 ------ Positive/Equivocal Negative Unable to confirm the presence of IgG antibodies to HSV-2. Recommend retesting in 2-4 weeks. ID Date Data Source [id number] 02/27/2021 04:48:00 PM EDT [facility] Value Range Interpretation Code Description Data Kayleen rce(s) Supporting Document(s) HIV 1+2 Ab+HIV1 p24 Ag [Presence] in Serum or Plasma b y Immunoassay Non Reactive Non Reactive [facility] ID Date Data Source [id number] 02/27/2021 04:48:00 PM EDT [facility] Value Range Interpretation Code Description Data Kayleen rce(s) Supporting Document(s) Hepatitis C virus Ab Signal/Cutoff in Serum or Plasma by Immunoassay <0.1 s/coratio 0.0-0.9 [facility] ID Date Data Source [id number] 02/26/2021 02:29:00 PM EDT [facility] Value Range Interpretation Code Description Data Kayleen rce(s) Supporting Document(s) Hepatitis B virus surface Ab [Units/volume] in Serum o r Plasma by Immunoassay NONREACTIVE NORMAL:NON REACTIVE [facility] l ID Date Data Source [id number] 02/26/2021 02:29:00 PM EDT [facility] Value Range Interpretation Code Description Data Kayleen rce(s) Supporting Document(s) Treponema pallidum Ab [Presence] in Serum NON-REACTIVE NORMAL:NON FLOWER CTIVE [facility] ID Date Data Source [id number] 02/22/2021 08:28:00 AM EDT [facility] ([facility]) Name Value Range Interpretation Code Description Data Kayleen rce(s) Supporting Document(s) Sars-CoV-2, Tracey Laboratory test result [facility] ([facility]) .~.~Z11.59 Laboratory test finding (navigational concept) Laboratory test result [facility] ([facility]) .~.~Z11.59 ID Date Data Source [id number] 02/22/2021 08:28:00 AM EDT [facility] Name Value Range Interpretation Code Description Data Kayleen rce(s) Supporting Document(s) SARS coronavirus 2 RNA Not Detected [facility] This lab was ordered by [facility] Eric ceballos and reported by [employer] [employer]. ID Date Data Source [id number] 02/24/2021 06:53:00 AM EDT [facility] Name Value Range Interpretation Code Description Data Kayleen rce(s) Supporting Document(s) SARS-CoV-2, TRACEY Not Detected Not Detected [facility] This nucleic acid amplification test was developed and its performancecharacteristics determined by [facility]. Nucleic acidamplification tests include RT-PCR and TMA. [...] assay. SARS-CoV-2, TRACEY 2 DAY TAT Performed [facility] ID Date Data Source [id number] 02/22/2021 08:28:00 AM EDT [facility] ([facility]) Name Value Range Interpretation Code Description Data Kayleen rce(s) Supporting Document(s) Covid-19 Laboratory test result [facility] ([facility]) ID Date Data Source [id number] 02/22/2021 07:44:00 AM EDT [facility] 1 Medication Reconciliation Report [facility] Emergency Department [address] [place] [address] Phone #: ext- [phone] 02/22/2021 07:40 [id number] Sex: F : 1985 Age: 35yWeight: 67.1 kgHeight/Length: 61 in.BMI: 28.0ALLERGIES: Morphine and RelatedThe patient's Home Medications are listed below:THE FOLLOWING MEDICATIONS NEED TO BE RECONCILED: PropanololThe source(s) of the original Home Medication information:Not obtained.The following Medications were given to the patient in the Emergency Department:None.The following Medications were prescribed to the patient:None. Name Value Range Interpretation Code Description Data [facility](s) Supporting Document(s) ID Date Data Source [id number] 02/22/2021 07:44:00 AM EDT [place] [address] Medication Administration Record [facility] Emergency Department [address] [place] [address] Phone #: ext- [phone] 02/22/2021 07:40 Patient: DOROTEO AC Sex: F : 1985 Age: 35yWeight: 67.1 kgHeight/Length: 61 inBMI: 28ALLERGIES: Morphine and RelatedDate/Time Medication Administered Medication Ordered Name Value Range Interpretation Code Description Data [facility] Supporting Document(s) ID Date Data Source [id number] 02/22/2021 07:44:00 AM EDT [place] [address] General Instructions [facility] Emergency Department [address] [place] [address] Phone #: ext- [phone] 02/22/2021 07:40 Patient: ODROTEO AC Sex: F : 1985 Age: 35yAcute sore throat.Left Without Being Seen.INSTRUCTIONSEloped: Patient left the Emergency Department; (during history taking). Notified the charge nurse andprimary nurse of patient departure. Stated is leaving the ED due to personal reasons.(Electronically signed by Nadya Awad M.D. 02/22/2021 08:21) Name Value Range Interpretation Code Description Data Kayleen rce(s) Supporting Document(s) ID Date Data Source [id number] 02/22/2021 07:44:00 AM EDT [facility] 1 Clinical Report - Nurses [facility] Emergency Department [address] [place] [address] Phone #: ext [phone] 02/22/2021 07:40 Patient: DOROTEO AC Sex: [...] had fever (monday). ( runny nose, congtestion).Treatment RELIEF MATE:Took ibuprofen. (330).SEPSIS SCREEN: SIRS SCREEN NEGATIVE. SEPSIS [...] personality disorder.Diarrhea.Headache.Schizophrenia. 2 Clinical Report - Nurses [facility] Emergency Department [address] [place] [address] Phone #: ext- [phone] 02/22/2021 07:40 [id number] Sex: F : 1985 Age: 35yVomiting.Seasonal allergic [...] Rainey R.N. 3 Clinical Report - Nurses [facility] Emergency Department [address] [place] [address] Phone #: ext- [phone] 02/22/2021 07:40 Patient: [...] rce(s) Supporting Document(s) ID Date Data Source [id number] 02/22/2021 07:44:00 AM EDT [facility] 1 Clinical Report - Physicians/Mid Levels [facility] Emergency Department [address] [place] [address] Phone #: ext- [phone] 02/22/2021 07:40 Patient: DOROTEO AC [facility]#: [id number] Sex: F : 1985 Age: 35y Time [...] rash). 2 Clinical Report - Physicians/Mid Levels [facility] Emergency Department [address] [place] [address] Phone #: ext- [phone] 02/22/2021 07:40 [id number] Sex: F : 1985 Age: 35ySOCIAL HISTORYLight [...] 07:59 02/22/21. pt was initially rude to clinical pharmacy specialist, berated her, then I came into roomafterwards [...] rce(s) Supporting Document(s) ID Date Data Source [id number] 02/17/2021 02:29:00 PM EDT [facility] ([facility]) Name Value Range Interpretation Code Description Data Kayleen rce(s) Supporting Document(s) Z#Other Observations Laboratory test result [facility] ([facility]) ID Date Data Source [id number] 02/17/2021 02:29:00 PM EDT [facility] ([facility]) Name Value Range Interpretation Code Description Data Kayleen rce(s) Supporting Document(s) Chlamydia trachomatis rRNA [Presence] in Unspecified s pecimen by DNA probe Laboratory test result [facility] ([facility]) Neisseria gonorrhoeae DNA [Presence] in Cervical mucus by Probe and target amplification method Laboratory test result [facility] ([facility]) ID Date Data Source [id number] 02/17/2021 02:27:00 PM EDT [facility] ([facility]) Name Value Range Interpretation Code Description Data Kayleen rce(s) Supporting Document(s) Source: Laboratory test result [facility] ([facility]) {SOURCE: Genital Isabela species Laboratory test result Abnormal (applies to non-numeric results) [facility] ([facility]) {SOURCE: Genital Gardnerella vaginalis Laboratory test result Abn ormal (applies to non-numeric results) [facility] ([facility]) {SOURCE: Genital Trichomonas vaginalis Laboratory test result [facility] ([facility]) {SOURCE: Genital ID Date Data Source [id number] 02/17/2021 02:27:00 PM EDT [facility] ([facility]) Name Value Range Interpretation Code Description Data Kayleen rce(s) Supporting Document(s) Chlamydia by Tracey Laboratory test result [facility] ([facility]) {SOURCE: Genital Gonococcus by Tracey Laboratory test result [facility] ([facility]) {SOURCE: Genital Source: Laboratory test result [facility] ([facility]) {SOURCE: Genital Trich vag by Tracey Laboratory test result [facility] ([facility]) {SOURCE: Genital ID Date Data Source [id number] 02/17/2021 02:27:00 PM EDT [facility] ([facility]) Name Value Range Interpretation Code Description Data Kayleen rce(s) Supporting Document(s) Treponema pallidum IgG Ab [Presence] in Serum Laboratory test result [facility] ([facility]) Laboratory test finding (navigational concept) Laboratory test result [facility] ([facility]) Hepatitis B virus surface Ag [Presence] in Serum or Pl asma by Immunoassay Laboratory test result [facility] ([facility]) ID Date Data Source [id number] 02/17/2021 02:27:00 PM EDT [facility] ([facility]) Name Value Range Interpretation Code Description Data Kayleen rce(s) Supporting Document(s) Hepatitis C virus Ab [Units/volume] in Serum by Immuno assay Laboratory test result [facility] ([facility]) ID Date Data Source [id number] 02/17/2021 02:27:00 PM EDT [facility] ([facility]) Name Value Range Interpretation Code Description Data Kayleen rce(s) Supporting Document(s) Treponema pallidum Ab [Presence] in Serum Laboratory test result [facility] ([facility]) ID Date Data Source [id number] 02/20/2021 06:44:00 AM EDT [facility] Name Value Range Interpretation Code Description Data Kayleen rce(s) Supporting Document(s) SOURCE: Genital [facility] Chlamydia trachomatis rRNA [Presence] in Unspecified specimen by Probe and target amplification method Negative Negative [facility] Neisseria gonorrhoeae rRNA [Presence] in Unspecified specimen by Probe and target amplification method Negative Negative [facility] Trichomonas vaginalis DNA [Presence] in Unspecified specimen by Probe and target amplification method Negative Negative [facility] ID Date Data Source [id number] 02/19/2021 07:41:00 PM EDT [facility] Name Value Range Interpretation Code Description Data Kayleen rce(s) Supporting Document(s) SOURCE: Genital [facility] Isabela sp rRNA [Presence] in Vaginal fluid by DNA probe Positive N egative [facility] Gardnerella vaginalis rRNA [Presence] in Genital specimen by DNA probe Positive Negative A [facility] Trichomonas vaginalis rRNA [Presence] in Genital specimen by DNA probe Negative Negative [facility] ID Date Data Source [id number] 02/17/2021 02:05:00 PM EDT [facility] ([facility]) Name Value Range Interpretation Code Description Data Kayleen rce(s) Supporting Document(s) Laboratory test finding (navigational concept) Laboratory test result [facility] ([facility]) .~.~R30.0 Color Laboratory test result [facility] ([facility]) .~.~R30.0 Source Laboratory test result [facility] ([facility]) .~.~R30.0 Clarity Laboratory test result [facility] ([facility]) .~.~R30.0 Spec [place] 1.020 1.001-1.030 [facility] ([facility]) .~.~R30.0 pH 6 5-9 [facility] ([facility]) .~.~R30.0 Bilirubin Laboratory test result [facility] ([facility]) .~.~R30.0 Glucose Laboratory test result [facility] ([facility]) .~.~R30.0 Ketone Laboratory test result [facility] ([facility]) .~.~R30.0 Protein 15 [facility] [facility] .~.~R30.0 Nitrite Laboratory test result [facility] ([facility]) .~.~R30.0 Blood 10 Abnormal (applies to non-numeric res ults) [facility] ([facility]) .~.~R30.0 Urobilinogen Laboratory test result [facility] ([facility]) .~.~R30.0 Microscopic Laboratory test result M [facility] ([facility]) .~.~R30.0 Leuk Est 25 [facility] ([facility]) .~.~R30.0 RBC Laboratory test result [facility] ([facility]) .~.~R30.0 WBC Laboratory test result Abnormal (applies to non -numeric results) [facility] ([facility]) .~.~R30.0 Bacteria Laboratory test result Abnormal (applies to non -numeric results) [facility] ([facility]) .~.~R30.0 Epithelial Laboratory test result [facility] ([facility]) .~.~R30.0 Mucous Laboratory test result [facility] ([facility]) .~.~R30.0 Yeast Laboratory test result Abnormal (applies to non -numeric results) [facility] ([facility]) .~.~R30.0 ID Date Data Source [id number] 02/17/2021 02:05:00 PM EDT [facility] ([facility]) Name Value Range Interpretation Code Description Data Kayleen rce(s) Supporting Document(s) Culture Urine Laboratory test result [facility] ([facility]) .~.~R30.0 ID Date Data Source [id number] 02/24/2021 02:06:00 PM EDT [facility] Name Value Range Interpretation Code Description Data Kayleen rce(s) Supporting Document(s) CULTURE URINE [facility] _CULTURE URINE_$$[id number]$$[id number]$$[id number]$$623432$$882081$$328302$$930019$$835643$$342703$$ 049033$$612170$$461997$$744578$$161231$$916365$$356998$$124491$$752194$$577010$$ 203724$$920849$$125801$$758793$$503584$$632185$$295718$$189955 -- Continued on next page --Patient: OSORIO SADELR L Order: [id number] Page 2Culture: CULTURE URINE Status: Final ==== -- Continued on next page --Patient: OSORIO SADLER L Order: [id number] Page 2Culture: CULTURE URINE Status: Prelim ===== -- Continued on next page --Patient: OSORIO SADLER L Order: [id number] Page 2Culture: CULTURE URINE Status: Prelim =====$$[id number]$$[id number] DATE/TIME: 02/24/2021 12:06Culture: CULTURE URINE Status: FinalIsolate [...] 02/21/2021 07:12 ET Gram negative rodsUrine Culture,Comprehensive: [id number] coli Flag: APatient: OSORIO Lind Order: [id number] Page 3Culture: CULTURE URINE Status: Final ====ISOLATE [...] S S . . . . . .93223-5Bsnpyizpmq S S . . . . . .267-5Imipenem S S . . . . . .279-0Levofloxacin S S . . . . . .19269-9Ivtwzenvv S S . . . . . .6652-2Nitrofurantoin S S . . . . . .363- 2Piperacillin/Tazobactam S S . . . . . .412-7Tetracycline S S . . . . . .496-0Tobramycin S S . . . . . .508-2Trimethoprim/Sulfa S S . . . . . .516-5P1 Test performed by: [facility] #: [id number] [address] [place] [address] [id number] [facility] [id number] Director : Pacheco Castillo MD NPI #:[employer] Manager : 02/22/21.0645.XMT.SENT REF 02/23/21.1623.XMT.SENT REF 02/24/21.1406.XMT.SENT REF ID Date Data Source [id number] 02/17/2021 08:53:00 PM EDT [facility] Name Value Range Interpretation Code Description Data Kayleen rce(s) Supporting Document(s) UA REFLEX TO UA CULTURE [facility] URINALYSIS SOURCE R [facility] COLOR yellow NORMAL: Yellow [facility] CLARITY hazy NORMAL: Clear [facility] Specific gravity of Urine by Test strip 1.020 1.001 - 1.030 [facility] pH 6 5 - 9 [facility] Glucose [Mass/volume] in Urine by Test strip NORM NORMAL: Negat [facility] Bilirubin.total [Presence] in Urine by Test strip NEG NORMAL: Negative [facility] Ketones [Presence] in Urine by Test strip NEG NORMAL: Negative [facility] Protein [Mass/volume] in Urine by Test strip 15 NORMAL: Negat [facility] Nitrite [Presence] in Urine by Test strip POS NORMAL: Negative [facility] BLOOD 10 NORMAL: Negative A [facility] Leukocyte esterase [Presence] in Urine by Test strip 25 CRISTINE L: Negative [facility] Urobilinogen [Mass/volume] in Urine by Test strip NOR less chrystal n 1.0 mg/dL [facility] MICROSCOPIC See Below [facility] ital WBC 5 - 7 NORMAL: NONE SEEN [facility] Erythrocytes [#/volume] in Urine by Test strip 1 - 3 NORMAL: NON E SEEN [facility] EPITHELIAL None Seen NORMAL: NONE SEEN [facility] Bacteria [Presence] in Urine sediment by Light microscopy 3+ LARGE NORMAL: NONE SEEN [facility] Mucus [Presence] in Urine sediment by Light microscopy 1+ NOR MAL: NONE SEEN [facility] YEAST Few [facility] ID Date Data Source [id number] 01/24/2021 02:54:00 PM EDT [facility] ([facility]) Name Value Range Interpretation Code Description Data Kayleen rce(s) Supporting Document(s) Laboratory test finding (navigational concept) Laboratory test result [facility] ([facility]) Sars-CoV-2, Tracey Laboratory test result [facility] ([facility]) This nucleic acid amplification test was developed and its performance characteristics determined by [employer]. Nucleic acid amplification tests include RT-PCR and [...] in this assay. ID Date Data Source [id number] 01/27/2021 03:33:00 PM EDT [facility] Name Value Range Interpretation Code Description Data Kayleen rce(s) Supporting Document(s) SARS-CoV-2, TRACEY Not Detected Not Detected [facility] This nucleic acid amplification test was developed and its performancecharacteristics determined by [facility]. Nucleic acidamplification tests include RT-PCR and [...] assay. SARS-CoV-2, TRACEY 2 DAY TAT Performed [facility] ID Date Data Source [id number] 01/24/2021 02:53:00 PM EDT [facility] Name Value Range Interpretation Code Description Data Kayleen rce(s) Supporting Document(s) SARS coronavirus 2 RNA Not Detected [facility] This lab was ordered by [facility] Eric ceballos and reported by [facility]. ID Date Data Source [id number] 01/06/2021 02:11:00 PM EDT [facility] ([facility]) Name Value Range Interpretation Code Description Data Kayleen rce(s) Supporting Document(s) White Blood Count 9.9 10 4.0-10.0 Normal (applies to non-numeri c results) [facility] ([facility]) Red Blood Count 4.22 10 4.00-5.40 Normal (applies to non-numeric results) [facility] ([facility]) Hemoglobin 13.1 g/dL 12.0-15.5 Normal (applies to non-numeric resul ts) [facility] ([facility]) Hematocrit 39.7 % 36.0-47.0 Normal (applies to non-numeric resul ts) [facility] ([facility]) Mean Corpuscular Volume 94.1 fl 80.0-96.0 Normal ( applies to non-numeric results) [facility] Mean Corpuscular Hemoglobin 31.0 pg 27.0-33.0 Norm al (applies to non-numeric results) [facility] ([facility]) Mean Corpuscular HGB Conc 33.0 g/dL 32.0-36.5 Normal (applies to non-numeric results) [facility] ([facility]) Neutrophils % 64.3 % 36.0-66.0 Normal (applies to non-numeric re sults) [facility] ([facility]) Red Cell Distribution Width 14.5 % 11.5-14.5 Norm al (applies to non-numeric results) [facility] ([facility]) Platelet Count, Automated 245 10 150-450 Normal (applies to non-numeric results) [facility] ([facility]) Lymph % 27.1 % 24.0-44.0 Normal (applies to non-numeric resul ts) [facility] ([facility]) [place] % 6.4 % 2.0-8.0 Normal (applies to non-numeric resul ts) [facility] ([facility]) Eos % 1.5 % 0.0-3.0 Normal (applies to non-numeric resul ts) [facility] ([facility]) Baso % 0.3 % 0.0-1.0 Normal (applies to non-numeric resul ts) [facility] ([facility]) Immature Granulocyte % 0.4 % 0-3.0 Normal (applies to non-n umeric results) [facility] Nucleated Red Blood Cell % 0.0 % 0-0 Normal (applies to n on-numeric results) [facility] ([facility]) Neutrophils # 6.4 10 1.5-8.5 Normal (applies to non-numeric re sults) [facility] ([facility]) [place] # 0.6 10 0.0-0.8 Normal (applies to non-numeric resul ts) [facility] ([facility]) Lymph # 2.7 10 1.5-5.0 Normal (applies to non-numeric resul ts) [facility] ([facility]) Baso # 0.0 10 0.0-0.2 Normal (applies to non-numeric resul ts) [facility] ([facility]) Eos # 0.2 10 0.0-0.5 Normal (applies to non-numeric resul ts) [facility] ([facility]) ID Date Data Source [id number] 01/06/2021 02:11:00 PM [address] [facility] ([facility]) Name Value Range Interpretation Code Description Data Kayleen rce(s) Supporting Document(s) Glucose, Fasting 109 mg/dL 70-100 Above high normal [facility] Glomerular Filtration Rate Laboratory test result Normal (applies to non- numeric results) [facility] ([facility]) <content>Units are mL/min/1.73 m2</content>
<content></content>
<content>Chronic Kidney Disease Staging per NKF:</content>
<content></content>
<content>Stage I & II GFR >=60 Normal to Mildly Decreased</content>
<content>Stage III GFR 30- 59 Moderately Decreased</content>
<content>Stage IV GFR 15-29 Severely Decreased</content>
<content>Stage V GFR <15 Very Little GFR Left</content>
<content>ESRD GFR <15 on GAME TRAPPER</content>
<content></content> Blood Urea Nitrogen 14 mg/dL 7-18 Normal (applies to non-nume javier results) [facility]) Creatinine For GFR 0.66 mg/dL 0.55-1.30 Normal (applies to non -numeric results) [facility] ([facility]) Sodium Level 141 meq/L 136-145 Normal (applies to non-numeric res ults) [facility] ([facility]) Chloride Level 111 meq/L 98-107 Above high normal [facility] ([facility]) Potassium Serum 3.9 meq/L 3.5-5.1 Normal (applies to non-numeric results) [facility] ([facility]) Anion Gap 4 meq/L 8-16 Below low normal [facility] ( [facility]) Carbon Dioxide Level 26 meq/L 21-32 Normal (applies to non-num davida results) [facility] ([facility]) Ast/Sgot 12 U/L 7-37 Normal (applies to non-numeric resul ts) [facility] ([facility]) Alt/SGPT 18 U/L 12-78 Normal (applies to non-numeric resul ts) [facility] ([facility]) Calcium Level 8.9 mg/dL 8.5-10.1 Normal (applies to non-numeric re sults) [facility] ([facility]) Alkaline Phosphatase 76 U/L 45-117 Normal (applies to non-num davida results) [facility] ([facility]) Bilirubin,Total 0.5 mg/dL 0.2-1.0 Normal (applies to non-numeric results) [facility] ([facility]) Total Protein 7.2 GM/DL 6.4-8.2 Normal (applies to non-numeric re sults) [facility] ([facility]) Albumin/Globulin Ratio 1.2 1.2-2.2 Normal (applies to non-n umeric results) [facility] ([facility]) Albumin 3.9 GM/DL 3.2-5.2 Normal (applies to non-numeric resul ts) [facility] ([facility]) ID Date Data Source [id number] 01/06/2021 02:11:00 PM EDT [facility] ([facility]) Name Value Range Interpretation Code Description Data Kayleen rce(s) Supporting Document(s) Iron (Fe) 78 ug/dL 50-170 Normal (applies to non-numeric resul ts) [facility] ([facility]) Percent Saturation 30.5 % 13.2-45.0 Normal (applies to non-numer ic results) [facility] ([facility]) Total Iron Binding Capacity 256 ug/dL 250-450 Norm al (applies to non-numeric results) [facility] ([facility]) ID Date Data Source [id number] 01/06/2021 02:11:00 PM EDT [facility] ([facility]) Name Value Range Interpretation Code Description Data Kayleen rce(s) Supporting Document(s) Ferritin [Mass/volume] in Serum or Plasma 73 ng/mL 8-252 Normal (applies to non- numeric results) [facility] ([facility]) <content>note:<nlbl:demographic_changed> </content>
<content></content> ID Date Data Source [id number] 11/20/2020 01:35:00 PM EDT [facility] ([facility]) Name Value Range Interpretation Code Description Data Kayleen rce(s) Supporting Document(s) Laboratory test finding (navigational concept) Laboratory test result [facility] ([facility]) Sars-CoV-2, Tracey Laboratory test result [facility] ([facility]) This nucleic acid amplification test was developed and its performance characteristics determined by [employer]. Nucleic acid amplification tests include RT-PCR and [...] in this assay. ID Date Data Source [id number] 11/22/2020 12:30:00 PM EDT [facility] Name Value Range Interpretation Code Description Data Kayleen rce(s) Supporting Document(s) SARS-CoV-2, TRACEY Not Detected Not Detected [facility] This nucleic acid amplification test was developed and its performancecharacteristics determined by [facility]. Nucleic acidamplification tests include RT-PCR and [...] assay. SARS-CoV-2, TRACEY 2 DAY TAT Performed [facility] ID Date Data Source [id number] 11/20/2020 01:35:00 PM EDT [facility] Name Value Range Interpretation Code Description Data Kayleen rce(s) Supporting Document(s) SARS coronavirus 2 RNA Not Detected [facility] This lab was ordered by [facility] Eric ceballos and reported by [facility]. ID Date Data Source [id number] 11/17/2020 01:31:00 PM EDT [facility] ([facility]) Name Value Range Interpretation Code Description Data Kayleen rce(s) Supporting Document(s) Comprehensive [employer] Laboratory test result [facility] ([facility]) Is patient fasting? N Chloride 104 meq/L 98-107 [facility] ([facility]) Is patient fasting? N Sodium 138 meq/L 134-153 [facility] ([facility]) Is patient fasting? N Potassium 4.2 meq/L 3.6-5.0 [facility] ([facility]) Is patient fasting? N Glucose 106 mg/dL 70-99 Above high normal [facility] ([facility]) Is patient fasting? N Co2 24 meq/L 22-30 [facility] ([facility]) Is patient fasting? N BUN 8 mg/dL 7-21 [facility] ([facility]) Is patient fasting? N Creatinine 0.6 mg/dL 0.7-1.5 Below low normal [facility] ( [facility]) Is patient fasting? N BUN/Creat 13 8-27 [facility] ([facility]) Is patient fasting? N Total Protein 6.8 g/dL 6.3-8.2 [facility] ([facility]) Is patient fasting? N Globulin 2.3 GM/DL 2.4-3.2 Below low normal [facility] ( [facility]) Is patient fasting? N Albumin 4.5 g/dL 3.9-5.0 [facility] ([facility]) Is patient fasting? N A/G Ratio 2.0 0.8-2.[address] [facility] ([facility]) Is patient fasting? N Calcium 9.3 mg/dL 8.4-10.2 [facility] ([facility]) Is patient fasting? N Alkaline Phos 89 U/L 38-126 [facility] ([facility]) Is patient fasting? N Total Bili Laboratory test result 0.2-1.3 CT [facility] ([facility]) Is patient fasting? N Sgot/Ast 16 U/L 5-40 [facility] ([facility]) Is patient fasting? N SGPT/Alt 7 U/L 7-56 [facility] ([facility]) Is patient fasting? N Age 35 yrs [facility] ([facility]) Is patient fasting? N Anion Gap 10.0 mmol/L 8.0-16.0 [facility] ([facility]) Is patient fasting? N Afr Amer GFR Laboratory test result [facility] ([facility]) Is patient fasting? N Non-Aa GFR Laboratory test result [facility] ([facility]) Is patient fasting? N ID Date Data Source [id number] 11/17/2020 01:31:00 PM EDT [facility] ([facility]) Name Value Range Interpretation Code Description Data Kayleen rce(s) Supporting Document(s) Calcidiol [Mass/volume] in Serum or Plasma 19 ng/mL [facility] ([facility]) Is patient fasting? N Cobalamin (Vitamin B12) [Mass/volume] in Serum or Plasma 204 pg/ mL 232-1245 Below low normal [facility] ([facility]) Is patient fasting? N ID Date Data Source [id number] 11/17/2020 01:31:00 PM EDT [facility] ([facility]) Name Value Range Interpretation Code Description Data Kayleen rce(s) Supporting Document(s) CBC W/Automated Diff Laboratory test result [facility] ([facility]) Is patient fasting? N WBC 10.1 10^3/uL 4.2-11.0 [facility] ([facility]) Is patient fasting? N Hematocrit 41.2 % 37.0-47.0 [facility] ([facility]) Is patient fasting? N RBC 4.55 10^6/uL 4.20-5.40 [facility] ([facility]) Is patient fasting? N Hemoglobin 13.7 g/dL 12.0-16.0 [facility] ([facility]) Is patient fasting? N MCH 30.1 pg 27.0-34.0 [facility] ([facility]) Is patient fasting? N MCV 90.5 fL 81.0-101 [facility] ([facility]) Is patient fasting? N Platelets 259 10^3/uL 150-450 [facility] ([facility]) Is patient fasting? N MCHC 33.3 g/dL 31.0-36.0 [facility] ([facility]) Is patient fasting? N RDW 15.1 % 11.5-14.5 Above high normal [facility] ([facility]) Is patient fasting? N Lymph 34.6 % 25.0-40.0 [facility] ([facility]) Is patient fasting? N MPV 9.1 fL 7.4-10.4 [facility] ([facility]) Is patient fasting? N Neut 54.3 % 37.0-80.0 [facility] ([facility]) Is patient fasting? N Eos 2.8 % 0.0-7.0 [facility] ([facility]) Is patient fasting? N [place] 7.5 % 3.0-8.0 [facility] ([facility]) Is patient fasting? N Baso 0.4 % 0.0-2.5 [facility] ([facility]) Is patient fasting? N %NRBC 0.0 % 0.0-0.0 [facility] ([facility]) Is patient fasting? N %Ig 0.4 % 0.0-0.0 Above high normal [facility] Is patient fasting? N #Neut 5.48 10^3/uL 2.00-6.90 [facility] ([facility]) Is patient fasting? N #Lymph 3.49 10^3/uL 0.60-3.40 Above high normal [facility] ([facility]) Is patient fasting? N #[place] 0.76 10^3/uL 0.00-0.90 [facility] ([facility]) Is patient fasting? N #Eos 0.28 10^3/uL 0.00-0.70 [facility] ([facility]) Is patient fasting? N #Baso 0.04 10^3/uL 0.00-0.20 [facility] ([facility]) Is patient fasting? N #Ig 0.04 10^3/uL 0.00-0.10 [facility] ([facility]) Is patient fasting? N #NRBC 0.00 10^3/uL 0.00-0.00 [facility] ([facility]) Is patient fasting? N Manual Diff Laboratory test result M [facility] ([facility]) Is patient fasting? N RBC Morph Laboratory test result [facility] ([facility]) Is patient fasting? N ID Date Data Source [id number] 11/17/2020 01:31:00 PM EDT [facility] ([facility]) Name Value Range Interpretation Code Description Data Kayleen rce(s) Supporting Document(s) Uibc 173 ug/dL 112-347 [facility] ([facility]) Is patient fasting? N Iron 58 ug/dL 42-135 [facility] ([facility]) Is patient fasting? N Tibc 231 ug/dL 250-450 Below low normal [facility] ( [facility]) Is patient fasting? N Iron Sat 25 % [facility] ([facility]) Is patient fasting? N ID Date Data Source [id number] 11/17/2020 01:31:00 PM EDT [facility] ([facility]) Name Value Range Interpretation Code Description Data Kayleen rce(s) Supporting Document(s) Iron binding capacity [Mass/volume] in Serum or Plasma Laborator y test result [facility] ([facility]) Iron [Mass/volume] in Serum or Plasma Laboratory test result [facility] ([facility]) Ferritin [Mass/volume] in Serum or Plasma 63.5 ng/mL 3.0-105 [facility] ([facility]) Is patient fasting? N ID Date Data Source [id number] 11/17/2020 06:29:00 PM EDT [facility] Name Value Range Interpretation Code Description Data Kayleen rce(s) Supporting Document(s) COMPREHENSIVE METABOLIC PANEL [facility] COMPREHENSIVE METABOLIC PANEL Sodium [Moles/volume] in Serum or Plasma 138 mEq/L 134 - 153 [facility] Potassium [Moles/volume] in Serum or Plasma 4.2 mEq/L 3.6 - 5.0 [facility] Chloride [Moles/volume] in Serum or Plasma 104 mEq/L 98 - 107 [facility] Carbon dioxide, total [Moles/volume] in Serum or Plasma 24 MEQ/L 22 - 30 [facility] Glucose [Mass/volume] in Serum or Plasma 106 MG/DL 70 - 99 H [facility] BUN 8 MG/DL 7 - [facility] Creat[facility] [Mass/volume] in Serum or Plasma 0.6 MG/DL 0.7 - 1.5 L [facility] BUN/CREAT 13 8 - 27 [facility] al Protein [Mass/volume] in Serum or Plasma 6.8 G/DL 6.3 - 8.2 [facility] Albumin [Mass/volume] in Serum or Plasma 4.5 G/DL 3.9 - 5.0 [facility] Globulin [Mass/volume] in Serum by calculation 2.3 GM/DL 2.4 - 3.2 L [facility] A/G RATIO 2.0 0.8 - 2.0 [facility] Calcium [Mass/volume] in Serum or Plasma 9.3 MG/DL 8.4 - 10.2 [facility] Bilirubin.total [Mass/volume] in Serum or Plasma <0.7 MG/DL 0.2 - 1.3 [facility] Alkaline phosphatase [Enzymatic activity/volume] in Serum or Plasma 89 U/L 38 - 126 [facility] Aspartate aminotransferase [Enzymatic activity/volume] in Serum or Plasma 16 U/L 5 - 40 [facility] Alanine aminotransferase [Enzymatic activity/volume] in Seru m or Plasma 7 U/L 7 - 56 [facility] Anion gap 3 in Serum or Plasma 10.0 mmol/L 8.0 - 16.0 [facility] AGE [address] [facility] al NON-AA GFR >60 mL/min [facility] ital AFR AMER GFR >60 mL/min [facility] Male GFR In terprentation 20-49 [...] >32 mL/min Normal ID Date Data Source [id number] 11/17/2020 06:00:00 PM EDT [facility] Name Value Range Interpretation Code Description Data Kayleen rce(s) Supporting Document(s) Cobalamin (Vitamin B12) [Mass/volume] in Serum or Plasma 204 PG/ML 232 - 1245 L [facility] ID Date Data Source [id number] 11/17/2020 05:58:00 PM EDT [facility] Name Value Range Interpretation Code Description Data Kayleen rce(s) Supporting Document(s) Calcidiol [Moles/volume] in Serum or Plasma 19 NG/ML [facility] VITAMIN-D(2 5HYDROXY) Deficiency: <=20 ng/ml Insufficiency: 21-29 ng/ml Preferred level: => 30 ng/ml ID Date Data Source [id number] 11/17/2020 05:58:00 PM EDT [facility] Name Value Range Interpretation Code Description Data Kayleen rce(s) Supporting Document(s) Ferritin [Mass/volume] in Serum or Plasma 63.5 ng/mL 3.0 - 105 [facility] ID Date Data Source [id number] 11/17/2020 05:36:00 PM EDT [facility] Name Value Range Interpretation Code Description Data Kayleen rce(s) Supporting Document(s) Iron [Mass/volume] in Serum or Plasma 58 UG/DL 42 - 135 [facility] Iron binding capacity.unsaturated [Mass/volume] in Serum or Plasma 173 UG/DL 112 - 347 [facility] Iron binding capacity [Mass/volume] in Serum or Plasma 231 ug/dL 250 - 450 L [facility] Iron saturation [Mass Fraction] in Serum or Plasma 25 % [facility] ID Date Data Source [id number] 11/17/2020 05:32:00 PM EDT [facility] Value Range Interpretation Code Description Data Kayleen rce(s) Supporting Document(s) CBC W/AUTOMATED DIFF [facility] COMPLETE BLOOD COUNT Leukocytes [#/volume] in Blood by Automated count 10.1 10^3/uL 4.2 - 11.0 [facility] Erythrocytes [#/volume] in Blood by Automated count 4.55 10^6/uL 4. 20 - 5.40 [facility] Hemoglobin [Mass/volume] in Blood 13.7 g/dL 12.0 - 16.0 [facility] Hematocrit [Volume Fraction] of Blood by Automated count 41.2 % 3 7.0 - 47.0 [facility] Erythrocyte mean corpuscular volume [Entitic volume] by Auto mated count 90.5 fL 81.0 - 101 [facility] Erythrocyte mean corpuscular hemoglobin [Entitic mass] by Automated count 30.1 pg 27.0 - 34.0 [facility] Erythrocyte mean corpuscular hemoglobin concentration [Mass/volume] by Automated count 33.3 g/dL 31.0 - 36.0 [facility] Erythrocyte distribution width [Ratio] by Automated count 15.1 % 11.5 - 14.5 H [facility] Platelets [#/volume] in Blood by Automated count 259 10^3/uL 150 - 45 0 [facility] Platelet mean volume [Entitic volume] in Blood by Automated count 9.1 fL 7.4 - 10.4 [facility] Neutrophils/100 leukocytes in Blood by Automated count 54.3 % 37. 0 - 80.0 [facility] Lymphocytes/100 leukocytes in Blood by Manual count 34.6 % 25.0 - 40.0 [facility] Monocytes/100 leukocytes in Blood by Automated count 7.5 % 3.0 - 8.0 [facility] Eosinophils/100 leukocytes in Blood by Automated count 2.8 % 0.0 - 7.0 [facility] Basophils/100 leukocytes in Blood by Automated count 0.4 % 0.0 - 2.5 [facility] %IG 0.4 % 0.0 [facility] % 0.0 - 0.0 [facility] al Neutrophils [#/volume] in Blood by Automated count 5.48 10^3/uL 2.00 - 6.90 [facility] Lymphocytes [#/volume] in Blood by Automated count 3.49 10^3/uL 0.60 - 3.40 H [facility] Monocytes [#/volume] in Blood by Automated count 0.76 10^3/uL 0.00 - 0.90 [facility] Eosinophils [#/volume] in Blood by Automated count 0.28 10^3/uL 0.00 - 0.70 [facility] Basophils [#/volume] in Blood by Automated count 0.04 10^3/uL 0.00 - 0.20 [facility] #IG 0.04 10^3/uL 0.00 - 0.10 [facility] H [facility]spital #NRBC 0.00 10^3/uL 0.00 - 0.00 [facility] ospital MANUAL DIFF NOT INDICATED [facility] RBC MORPH NOT INDICATED [facility] spital ID Date Data Source [id number] 11/09/2020 12:38:00 PM EDT [facility] ([facility]) Name Value Range Interpretation Code Description Data Kayleen rce(s) Supporting Document(s) Thyrotropin [Units/volume] in Serum or Plasma 0.34 uIU/mL 0. 47-5.01 Below low normal [facility] ([facility]) Thyroxine (T4) free [Mass/volume] in Serum or Plasma 1.27 ng/dL 0.93- 1.70 [facility] ([facility]) ID Date Data Source [id number] 11/09/2020 12:38:00 PM EDT [facility] ([facility]) Name Value Range Interpretation Code Description Data Kayleen rce(s) Supporting Document(s) Thyroxine (T4) free [Mass/volume] in Serum or Plasma 1.27 ng/dL 0.93- 1.70 [facility] ([facility]) Thyrotropin [Units/volume] in Serum or Plasma 0.34 uIU/mL 0.47-5.01 [facility] ([facility]) ID Date Data Source [id number] 11/09/2020 08:25:00 PM EDT [facility] Name Value Range Interpretation Code Description Data Kayleen rce(s) Supporting Document(s) Thyrotropin [Units/volume] in Serum or Plasma by Detec tion limit <= 0.05 mIU/L 0.34 uIU/mL 0.47 - 5.01 L [facility] ID Date Data Source [id number] 11/09/2020 01:42:00 PM EDT [facility] Name Value Range Interpretation Code Description Data Kayleen rce(s) Supporting Document(s) Thyroxine (T4) free index in Serum or Plasma by calculation 1.27 NG/DL 0.93 - 1.70 [facility] ID Date Data Source [id number] 09/25/2020 03:37:00 PM EDT [facility] ([facility]) Name Value Range Interpretation Code Description Data Kayleen rce(s) Supporting Document(s) Coronavirus Covid-19 Laboratory test result [facility] ([facility]) This nucleic acid amplification test was developed and its performance characteristics determined by [facility]. Nucleic acid amplification tests include RT-PCR and [...] in this assay. ID Date Data Source [id number] 09/25/2020 03:37:00 PM EDT [facility] ([facility]) Name Value Range Interpretation Code Description Data Kayleen rce(s) Supporting Document(s) Influenza virus B RNA [Presence] in Unsp ecified specimen by Probe and target amplification method Laboratory test result [facility] ([facility]) Influenza virus A RNA [Presence] in Unsp ecified specimen by Probe and target amplification method Laboratory test result [facility] ([facility]) ID Date Data Source [id number] 09/25/2020 03:37:00 PM EDT [facility] Name Value Range Interpretation Code Description Data Kayleen rce(s) Supporting Document(s) SARS coronavirus 2 RNA Not Detected [facility] This lab was ordered by [facility] lin and reported by [facility]. ID Date Data Source [id number] 09/28/2020 03:20:00 PM EDT [facility] Name Value Range Interpretation Code Description Data Kayleen rce(s) Supporting Document(s) SARS-CoV-2, TRACEY Not Detected Not Detected [facility] This nucleic acid amplification test was developed and its performancecharacteristics determined by [employer]. Nucleic acidamplification tests include RT-PCR and TMA. [...] in this assay. ID Date Data Source [id number] 09/03/2020 03:43:00 PM EDT [facility] ([facility]) Name Value Range Interpretation Code Description Data Kaylene rce(s) Supporting Document(s) Sars-CoV-2, Tracey Laboratory test result [facility] ([facility]) This nucleic acid amplification test was developed and its performance characteristics determined by [employer]. Nucleic acid amplification tests include RT-PCR and [...] finding (navigational concept) Laboratory test result [facility] ([facility]) ID Date Data Source [id number] 09/03/2020 03:43:00 PM EDT [facility] Name Value Range Interpretation Code Description Data Kayleen rce(s) Supporting Document(s) SARS coronavirus 2 RNA Not Detected [facility] This lab was ordered by [facility] lin and reported by [employer]. ID Date Data Source [id number] 09/06/2020 07:21:00 AM EDT [facility] Name Value Range Interpretation Code Description Data Kayleen rce(s) Supporting Document(s) SARS-CoV-2, TRACEY Not Detected Not Detected [facility] This nucleic acid amplification test was developed and its performancecharacteristics determined by [employer]. Nucleic acidamplification tests include RT-PCR and TMA. [...] assay. SARS-CoV-2, TRACEY 2 DAY TAT Performed [facility] ID Date Data Source [id number] 09/03/2020 03:43:00 PM EDT [facility] ([facility]) Name Value Range Interpretation Code Description Data Kayleen rce(s) Supporting Document(s) Covid-19 Laboratory test result [facility] ([facility]) ID Date Data Source [id number] 07/31/2020 01:04:00 PM EST [facility] ([facility]) Name Value Range Interpretation Code Description Data Kayleen rce(s) Supporting Document(s) [place] [Mass/volume] in Serum or Plasma 0.5 mmol/L 0.6-1.2 Below low normal [facility] ([facility]) <content>Detection Limit = 0.1</content>
<content><0.1 indicates None Detected</content>
<content></content> ID Date Data Source [id number] 07/31/2020 01:04:00 PM EST [facility] ([facility]) Name Value Range Interpretation Code Description Data Kayleen rce(s) Supporting Document(s) Cholesterol 218 mg/dL 131-200 Above high normal [facility] ([facility]) Is patient fasting? N Cve Panel Laboratory test result [facility] ([facility]) LIPID PANEL Triglycerides 89 mg/dL 35-160 [facility] ([facility]) Is patient fasting? N HDL 51 mg/dL 29-86 [facility] ([facility]) Is patient fasting? N LDL 170 mg/dL 65-175 [facility] ([facility]) Is patient fasting? N Risk Factor 4.3 3.2-4.4 [facility] ([facility]) Is patient fasting? N LDL/HDL 3.33 1.47-3.22 Above high normal [facility] ([facility]) CVE RISK CHOL/HDL LDL/HDL MEN: 1/2 AVERAGE 3.43 1.00 AVERAGE 4.97 3.55 2X AVERAGE 9.55 6.25 3X AVERAGE 23.99 7.99 WOMEN: 1/2 AVERAGE 3.27 1.47 AVERAGE 4.44 3.22 2X AVERAGE 7.05 5.03 3X AVERAGE 11.04 6.14 ID Date Data Source [id number] 07/31/2020 01:04:00 PM EST [facility] ([facility]) Name Value Range Interpretation Code Description Data Kayleen rce(s) Supporting Document(s) Hemoglobin A1c/Hemoglobin.total in Blood 5.1 % 4.4-6.1 [facility] ([facility]) {A1] {HB] ID Date Data Source [id number] 07/31/2020 01:04:00 PM EST [facility] ([facility]) Name Value Range Interpretation Code Description Data Kayleen rce(s) Supporting Document(s) Comprehensive [place]abo Laboratory test result [facility] ([facility]) COMPREHENSIVE METABOLIC PANEL Sodium 139 meq/L 134-153 [facility] ([facility]) Is patient fasting? N Potassium 4.1 meq/L 3.6-5.0 [facility] ([facility]) Is patient fasting? N Chloride 105 meq/L 98-107 [facility] ([facility]) Is patient fasting? N Co2 26 meq/L 22-30 [facility] ([facility]) Is patient fasting? N Glucose 99 mg/dL 70-99 [facility] ([facility]) Is patient fasting? N BUN 13 mg/dL 7-21 [facility] ([facility]) Is patient fasting? N Creatinine 0.6 mg/dL 0.7-1.5 Below low normal [facility] ( [facility]) Is patient fasting? N Total Protein 6.7 g/dL 6.3-8.2 [facility] ([facility]) Is patient fasting? N BUN/Creat 22 8-27 [facility] ([facility]) Is patient fasting? N Albumin 4.4 g/dL 3.9-5.0 [facility] ([facility]) Is patient fasting? N Globulin 2.3 GM/DL 2.4-3.2 Below low normal [facility] ( [facility]) Is patient fasting? N A/G Ratio 1.9 0.8-2.0 [facility] Is patient fasting? N Calcium 9.1 mg/dL 8.4-10.2 [facility] ([facility]) Is patient fasting? N Total Bili Laboratory test result 0.2-1.3 [facility] ([facility]) Is patient fasting? N Alkaline Phos 67 U/L 38-126 [facility] ([facility]) Is patient fasting? N Sgot/Ast 12 U/L 5-40 [facility] ([facility]) Is patient fasting? N Anion Gap 8.0 mmol/L 8.0-16.[address] [facility] ([facility]) Is patient fasting? N SGPT/Alt 10 U/L 7-56 [facility] ([facility]) Is patient fasting? N Age 35 yrs [facility] ([facility]) Is patient fasting? N Non-Aa GFR Laboratory test result [facility] ([facility]) Is patient fasting? N Afr Amer GFR Laboratory test result [facility] ([facility]) Male GFR Interprentation 20-49 yrs >60 mL/min [...] >32 mL/min Normal ID Date Data Source [id number] 07/31/2020 01:04:00 PM EST [facility] ([facility]) Name Value Range Interpretation Code Description Data Kayleen rce(s) Supporting Document(s) CBC W/Automated Diff Laboratory test result [facility] ([facility]) COMPLETE BLOOD COUNT WBC 11.1 10^3/uL 4.2-11.0 Above high normal [facility] ([facility]) Is patient fasting? N RBC 4.52 10^6/uL 4.20-5.40 [facility] ([facility]) Is patient fasting? N Hemoglobin 13.5 g/dL 12.0-16.[address] [facility] ([facility]) Is patient fasting? N Hematocrit 40.8 % 37.0-47.0 [facility] ([facility]) Is patient fasting? N MCV 90.3 fL 81.0-101 [facility] ([facility]) Is patient fasting? N MCH 29.9 pg 27.0-34.0 [facility] ([facility]) Is patient fasting? N RDW 13.1 % 11.5-14.5 [facility] ([facility]) Is patient fasting? N MCHC 33.1 g/dL 31.0-36.0 [facility] ([facility]) Is patient fasting? N Platelets 239 10^3/uL 150-450 [facility] ([facility]) Is patient fasting? N MPV 8.3 fL 7.4-10.4 [facility] ([facility]) Is patient fasting? N Neut 49.1 % 37.0-80.0 [facility] ([facility]) Is patient fasting? N Lymph 40.2 % 25.0-40.0 Above high normal [facility] ([facility]) Is patient fasting? N Eos 2.8 % 0.0-7.0 [facility] ([facility]) Is patient fasting? N [place] 7.2 % 3.0-8.0 [facility] ([facility]) Is patient fasting? N Baso 0.5 % 0.0-2.5 [facility] ([facility]) Is patient fasting? N %Ig 0.2 % 0.0-0.0 Above high normal [facility] ([facility]) Is patient fasting? N %NRBC 0.0 % 0.0-0.0 [facility] ([facility]) Is patient fasting? N #Lymph 4.46 10^3/uL 0.60-3.40 Above high normal [facility] ([facility]) Is patient fasting? N #Neut 5.46 10^3/uL 2.00-6.90 [facility] ([facility]) Is patient fasting? N #[place] 0.80 10^3/uL 0.00-0.90 [facility] ([facility]) Is patient fasting? N #Baso 0.05 10^3/uL 0.00-0.20 [facility] ([facility]) Is patient fasting? N #Eos 0.31 10^3/uL 0.00-0.70 [facility] ([facility]) Is patient fasting? N #Ig 0.02 10^3/uL 0.00-0.10 [facility] ([facility]) Is patient fasting? N #NRBC 0.00 10^3/uL 0.00-0.00 [facility] ([facility]) Is patient fasting? N Manual Diff Laboratory test result [facility] ([facility]) Is patient fasting? N RBC Morph Laboratory test result [facility] ([facility]) Is patient fasting? N ID Date Data Source [id number] 08/01/2020 04:29:00 PM EST [facility] Name Value Range Interpretation Code Description Data Kayleen rce(s) Supporting Document(s) [place] [Moles/volume] in Serum or Plasma 0.5 mmol/L 0.6-1.2 L [facility] Detection Limit = 0.1 <0.1 indicates None Detected ID Date Data Source [id number] 07/31/2020 02:11:00 PM [facility] Name Value Range Interpretation Code Description Data Kayleen rce(s) Supporting Document(s) CVE PANEL [facility] al LIPID PANEL Cholesterol [Mass/volume] in Serum or Plasma 218 MG/DL 131 - 200 H [facility] Deprecated Triglyceride [Mass/volume] in Serum or Plasma 89 MG/DL 3 5 - 160 [facility] HDL 51 MG/DL 29 - 86 [facility] al Cholesterol in LDL [Mass/volume] in Serum or Plasma by Direc t assay 170 mg/dL 65 - 175 [facility] Cholesterol.total/Cholesterol in HDL [Mass Ratio] in Serum o r Plasma 4.3 3.2 - 4.4 [facility] LDL/HDL 3.33 1.47 - 3.22 [facility] ital CVE RISK CHOL/HDL LDL/HDLMEN: 1/2 AVERAGE 3.43 1.00 AVERAGE 4.97 3.55 2X AVERAGE 9.55 6.25 3X AVERAGE 23.99 7.99WOMEN: 1/2 AVERAGE 3.27 1.47 AVERAGE 4.44 3.22 2X AVERAGE 7.05 5.03 3X AVERAGE 11.04 6.14 ID Date Data Source [id number] 07/31/2020 02:11:00 PM EST [facility] Name Value Range Interpretation Code Description Data Kayleen rce(s) Supporting Document(s) COMPREHENSIVE METABOLIC PANEL [facility] COMPREHENSIVE METABOLIC PANEL Sodium [Moles/volume] in Serum or Plasma 139 mEq/L 134 - 153 [facility] Potassium [Moles/volume] in Serum or Plasma 4.1 mEq/L 3.6 - 5.0 [facility] Chloride [Moles/volume] in Serum or Plasma 105 mEq/L 98 - 107 [facility] Carbon dioxide, total [Moles/volume] in Serum or Plasma 26 MEQ/L 22 - 30 [facility] Glucose [Mass/volume] in Serum or Plasma 99 MG/DL 70 - 99 [facility] BUN 13 MG/DL 7 - 21 [facility] Creatinine [Mass/volume] in Serum or Plasma 0.6 MG/DL 0.7 - 1.5 L [facility] BUN/CREAT 22 8 - 27 [facility] al Protein [Mass/volume] in Serum or Plasma 6.7 G/DL 6.3 - 8.2 [facility] Albumin [Mass/volume] in Serum or Plasma 4.4 G/DL 3.9 - 5.0 [facility] Globulin [Mass/volume] in Serum by calculation 2.3 GM/DL 2.4 - 3.2 L [facility] A/G RATIO 1.9 0.8 - 2.0 [facility] Calcium [Mass/volume] in Serum or Plasma 9.1 MG/DL 8.4 - 10.2 [facility] Bilirubin.total [Mass/volume] in Serum or Plasma <0.7 MG/DL 0.2 - 1.3 [facility] Alkaline phosphatase [Enzymatic activity/volume] in Serum or Plasma 67 U/L 38 - 126 [facility] Aspartate aminotransferase [Enzymatic activity/volume] in Serum or Plasma 12 U/L 5 - 40 [facility] Alanine aminotransferase [Enzymatic activity/volume] in Seru m or Plasma 10 U/L 7 - 56 [facility] Anion gap 3 in Serum or Plasma 8.0 mmol/L 8.0 - 16.0 [facility] AGE 35 yrs [facility] NON-AA GFR >60 mL/min [facility] ital AFR AMER GFR >60 mL/min [facility] spital Male GFR In terprentation 20-49 [...] >32 mL/min Normal ID Date Data Source [id number] 07/31/2020 01:43:00 PM EST [facility] Name Value Range Interpretation Code Description Data Kayleen rce(s) Supporting Document(s) Hemoglobin A1c/Hemoglobin.total in Blood 5.1 % 4.4 - 6.1 [facility] {A1]{HB] ID Date Data Source [id number] 07/31/2020 01:22:00 PM EST [facility] Name Value Range Interpretation Code Description Data Kayleen rce(s) Supporting Document(s) CBC W/AUTOMATED DIFF [facility] COMPLETE BLOOD COUNT Leukocytes [#/volume] in Blood by Automated count 11.1 10^3/uL 4.2 - 11.0 H [facility] Erythrocytes [#/volume] in Blood by Automated count 4.52 10^6/uL 4. 20 - 5.40 [facility] Hemoglobin [Mass/volume] in Blood 13.5 g/dL 12.0 - 16.0 [facility] Hematocrit [Volume Fraction] of Blood by Automated count 40.8 % 3 7.0 - 47.0 [facility] Erythrocyte mean corpuscular volume [Entitic volume] by Auto mated count 90.3 fL 81.0 - 101 [facility] Erythrocyte mean corpuscular hemoglobin [Entitic mass] by Automated count 29.9 pg 27.0 - 34.0 [facility] Erythrocyte mean corpuscular hemoglobin concentration [Mass/volume] by Automated count 33.1 g/dL 31.0 - 36.0 [facility] Erythrocyte distribution width [Ratio] by Automated count 13.1 % 11.5 - 14.5 [facility] Platelets [#/volume] in Blood by Automated count 239 10^3/uL 150 - 45 0 [facility] Platelet mean volume [Entitic volume] in Blood by Automated count 8.3 fL 7.4 - 10.4 [facility] Neutrophils/100 leukocytes in Blood by Automated count 49.1 % 37. 0 - 80.0 [facility] Lymphocytes/100 leukocytes in Blood by Manual count 40.2 % 25.0 - 40.0 H [facility] Monocytes/100 leukocytes in Blood by Automated count 7.2 % 3.0 - 8.0 [facility] Eosinophils/100 leukocytes in Blood by Automated count 2.8 % 0.0 - 7.0 [facility] Basophils/100 leukocytes in Blood by Automated count 0.5 % 0.0 - 2.5 [facility] %IG 0.2 % 0.0 - 0.0 [facility]NR[facility] 0.0 % 0.0 - 0.0 [facility] al Neutrophils [#/volume] in Blood by Automated count 5.46 10^3/uL 2.00 - 6.90 [facility] Lymphocytes [#/volume] in Blood by Automated count 4.46 10^3/uL 0.60 - 3.40 H [facility] Monocytes [#/volume] in Blood by Automated count 0.80 10^3/uL 0.00 - 0.90 [facility] Eosinophils [#/volume] in Blood by Automated count 0.31 10^3/uL 0.00 - 0.70 [facility] Basophils [#/volume] in Blood by Automated count 0.05 10^3/uL 0.00 - 0.20 [facility] #IG 0.02 10^3/uL 0.00 - 0.10 [facility] #NRBC 0.00 10^3/uL 0.00 - 0.00 [facility] MANUAL DIFF NOT INDICATED [facility] RBC MORPH NOT INDICATED [facility] ID Date Data Source [id number] 07/14/2020 03:36:00 PM EST [facility] ([facility]) Name Value Range Interpretation Code Description Data Kayleen rce(s) Supporting Document(s) Ferritin [Mass/volume] in Serum or Plasma 66 ng/mL 8-252 Normal (applies to non- numeric results) [facility] ([facility]) <content>note:<nlbl:[email or web address]> </content>
<content></content> ID Date Data Source [id number] 07/14/2020 03:36:00 PM EST [facility] ([facility]) Name Value Range Interpretation Code Description Data Kayleen rce(s) Supporting Document(s) Iron (Fe) 34 ug/dL 50-170 Below low normal [facility] ( [facility]) Percent Saturation 13.1 % 13.2-45.0 Below low normal [facility] Total Iron Binding Capacity 259 ug/dL 250-450 Norm al (applies to non-numeric results) [facility] ([facility]) ID Date Data Source [id number] 07/14/2020 03:36:00 PM EST [facility] ([facility]) Name Value Range Interpretation Code Description Data Kayleen rce(s) Supporting Document(s) Red Blood Count 4.42 10 4.00-5.40 Normal (applies to non-numeric results) [facility] ([facility]) White Blood Count 14.5 10 4.0-10.0 Above high normal [facility] ([facility]) Hematocrit 41.2 % 36.0-47.0 Normal (applies to non-numeric resul ts) [facility] ([facility]) Hemoglobin 13.2 g/dL 12.0-15.5 Normal (applies to non-numeric resul ts) [facility] ([facility]) Mean Corpuscular Volume 93.2 fl 80.0-96.0 Normal ( applies to non-numeric results) [facility] ([facility]) Mean Corpuscular Hemoglobin 29.9 pg 27.0-33.0 Norm al (applies to non-numeric results) [facility] Mean Corpuscular HGB Conc 32.0 g/dL 32.0-36.5 Normal (applies to non-numeric results) [facility] ([facility]) Red Cell Distribution Width 13.0 % 11.5-14.5 Norm al (applies to non-numeric results) [facility] ([facility]) Platelet Count, Automated 274 10 150-450 Normal (applies to non-numeric results) [facility] ([facility]) Lymph % 28.4 % 24.0-44.0 Normal (applies to non-numeric resul ts) [facility] ([facility]) Neutrophils % 63.4 % 36.0-66.0 Normal (applies to non-numeric re sults) [facility] ([facility]) Eos % 2.2 % 0.0-3.0 Normal (applies to non-numeric resul ts) [facility] ([facility]) [place] % 5.3 % 0.0-5.0 Above high normal [facility] ([facility]) Baso % 0.3 % 0.0-1.0 Normal (applies to non-numeric resul ts) [facility] ([facility]) Immature Granulocyte % 0.4 % 0-3.0 Normal (applies to non-n umeric results) [facility] ([facility]) Nucleated Red Blood Cell % 0.0 % 0-0 Normal (applies to n on-numeric results) [facility] ([facility]) Neutrophils # 9.2 10 1.5-8.5 Above high normal MEDE NT ([facility]) Lymph # 4.1 10 1.5-5.0 Normal (applies to non-numeric resul ts) [facility] ([facility]) [place] # 0.8 10 0.0-0.8 Normal (applies to non-numeric resul ts) [facility] ([facility]) Eos # 0.3 10 0.0-0.5 Normal (applies to non-numeric resul ts) [facility] ([facility]) Baso # 0.1 10 0.0-0.2 Normal (applies to non-numeric resul ts) [facility] ([facility]) ID Date Data Source [id number] 06/30/2020 01:03:00 PM EST [facility] ([facility]) Name Value Range Interpretation Code Description Data Kayleen rce(s) Supporting Document(s) Sars-CoV-2, Tracey Laboratory test result [facility] ([facility]) This nucleic acid amplification test was developed and its performance characteristics determined by [facility]. Nucleic acid amplification tests include RT-PCR and [...] finding (navigational concept) Laboratory test result [facility] ([facility]) ID Date Data Source [id number] 06/30/2020 01:03:00 PM EST [facility] Name Value Range Interpretation Code Description Data Kayleen e(s) Supporting Document(s) SARS coronavirus 2 RNA Not Detected [facility] This lab was ordered by [facility] Eric ceballos and reported by [facility]. ID Date Data Source [id number] 07/02/2020 05:20:00 PM EST [facility] Name Value Range Interpretation Code Description Data Kayleen rce(s) Supporting Document(s) SARS-CoV-2, TRACEY Not Detected Not Detected [facility] This nucleic acid amplification test was developed and its performancecharacteristics determined by [facility]. Nucleic acidamplification tests include RT-PCR and [...] assay. ORDER COVID 19 2 DAY YES [facility] ID Date Data Source [id number] 06/30/2020 01:03:00 PM EST [facility] ([facility]) Name Value Range Interpretation Code Description Data Kayleen rce(s) Supporting Document(s) Laboratory test finding (navigational concept) Laboratory test result [facility] ([facility]) ID Date Data Source [id number] 05/25/2020 03:55:00 PM EST [facility] ([facility]) Name Value Range Interpretation Code Description Data Kayleen rce(s) Supporting Document(s) PDF Laboratory test result [facility] ([facility]) {DIAGNOSIS: F12.20~{MEDICATIONS/DECLARE D: IBUPROFEN, LITHIUM, MAXALT~{PRESCRIPTION INFO: PROPR Laboratory test finding (navigational concept) Laboratory test result [facility] ([facility]) {DIAGNOSIS: F12.20~{MEDICATIONS/DECLARE D: IBUPROFEN, LITHIUM, MAXALT~{PRESCRIPTION INFO: PROPR ID Date Data Source [id number] 05/31/2020 12:10:00 PM [facility] Name Value Range Interpretation Code Description Data Kayleen rce(s) Supporting Document(s) Drugs identified in Urine FINAL [facility] TOXASSURE SELECT 13 (MW) Test Result Flag [...] include following reported medications: Cariprazine (Vraylar) Ibuprofen [place] Propranolol Rizatriptan (Maxalt) For clinical consultation, please call . Report . [facility] ID Date Data Source [id number] 03/31/2020 11:46:00 AM EDT [facility] ([facility]) Name Value Range Interpretation Code Description Data Kayleen rce(s) Supporting Document(s) Thyrotropin [Units/volume] in Serum or Plasma 0.44 uIU/mL 0. 47-5.01 Below low normal [facility] ([facility]) Thyroxine (T4) free [Mass/volume] in Serum or Plasma 1.72 ng/dL 0.93-1.70 Above high normal [facility] ([facility]) Triiodothyronine (T3) [Mass/volume] in Serum or Plasma 130 ng/dL 71- 180 [facility] ([facility]) Thyrotropin receptor Ab [Units/volume] in Serum Laboratory t est result 0.00-1.75 [facility] ([facility]) Thyroid stimulating immunoglobulins actual/normal in S denzel Laboratory test result 0.00-0.55 [facility] ([facility]) ID Date Data Source [id number] 03/31/2020 11:46:00 AM EDT [facility] ([facility] ) Name Value Range Interpretation Code Description Data Kayleen rce(s) Supporting Document(s) Triiodothyronine (T3) [Mass/volume] in Serum or Plasma 130 ng/dL 71- 180 [facility] ([facility]) Thyrotropin [Units/volume] in Serum or Plasma 0.44 uIU/mL 0.47-5.01 [facility] ([facility]) Thyroxine (T4) free [Mass/volume] in Serum or Plasma 1.72 ng/dL 0.93- 1.70 [facility] ([facility]) Thyrotropin receptor Ab [Units/volume] in Serum Laboratory t est result 0.00-1.75 [facility] ([facility]) Thyroid-Stimulating Immunoglobulin (Tsi) Laboratory test result 0.00- 0.55 [facility] ([facility]) ID Date Data Source [id number] 04/04/2020 01:58:00 PM EDT [facility] Name Value Range Interpretation Code Description Data Kayleen rce(s) Supporting Document(s) Thyrotropin receptor Ab [Units/volume] in Serum <1.10 IU/L 0.00-1.75 [facility] ID Date Data Source [id number] 04/02/2020 07:36:00 AM EDT [facility] Name Value Range Interpretation Code Description Data Kayleen rce(s) Supporting Document(s) Thyroid stimulating immunoglobulins [Units/volume] in Serum <0.10 IU/L 0.00-0.55 [facility] ID Date Data Source [id number] 04/01/2020 08:27:00 AM EDT [facility] Name Value Range Interpretation Code Description Data Kayleen rce(s) Supporting Document(s) Triiodothyronine (T3) [Mass/volume] in Serum or Plasma 130 ng/dL 71- 180 [facility] ID Date Data Source [id number] 03/31/2020 12:36:00 PM EDT [facility] Name Value Range Interpretation Code Description Data Kayleen rce(s) Supporting Document(s) Thyroxine (T4) free index in Serum or Plasma by calculation 1.72 NG/DL 0.93 - 1.70 H [facility] ID Date Data Source [id number] 03/31/2020 12:36:00 PM T [facility] Name Value Range Interpretation Code Description Data Kayleen rce(s) Supporting Document(s) Thyrotropin [Units/volume] in Serum or Plasma by Detec tion limit <= 0.05 mIU/L 0.44 uIU/mL 0.47 - 5.01 L [facility] ID Date Data Source [id number] 03/17/2020 02:00:00 PM EDT [facility] ([facility]) Name Value Range Interpretation Code Description Data Kayleen rce(s) Supporting Document(s) Thyrotropin [Units/volume] in Serum or Plasma 0.26 uIU/mL 0. 47-5.01 Below low normal [facility] ([facility]) Thyroxine (T4) free [Mass/volume] in Serum or Plasma 1.73 ng/dL 0.93-1.70 Above high normal [facility] ([facility]) Thyroid stimulating immunoglobulins actual/normal in S denzel Laboratory test result 0.00-0.55 [facility] ([facility]) ID Date Data Source [id number] 03/17/2020 02:00:00 PM EDT [facility] ([facility]) Name Value Range Interpretation Code Description Data Kayleen rce(s) Supporting Document(s) Thyrotropin [Units/volume] in Serum or Plasma 0.26 uIU/mL 0.47-5.01 [facility] ([facility]) Thyroid-Stimulating Immunoglobulin (Tsi) Laboratory test result 0.00- 0.55 [facility] ([facility]) Thyroxine (T4) free [Mass/volume] in Serum or Plasma 1.73 ng/dL 0.93- 1.70 [facility] ([facility]) ID Date Data Source [id number] 03/20/2020 01:50:00 PM EDT [facility] Name Value Range Interpretation Code Description Data Kayleen rce(s) Supporting Document(s) Thyroid stimulating immunoglobulins [Units/volume] in Serum <0.10 IU/L 0.00-0.55 [facility] ID Date Data Source [id number] 03/17/2020 03:05:00 PM EDT [facility] Name Value Range Interpretation Code Description Data Kayleen rce(s) Supporting Document(s) Thyroxine (T4) free index in Serum or Plasma by calculation 1.73 NG/DL 0.93 - 1.70 H [facility] ID Date Data Source [id number] 03/17/2020 03:05:00 PM EDT [facility] Name Value Range Interpretation Code Description Data Kayleen rce(s) Supporting Document(s) Thyrotropin [Units/volume] in Serum or Plasma by Detec tion limit <= 0.05 mIU/L 0.26 uIU/mL 0.47 - 5.01 L [facility] ID Date Data Source [id number] 02/24/2020 01:33:00 PM EDT [facility] ([facility]) Name Value Range Interpretation Code Description Data Kayleen rce(s) Supporting Document(s) Thyrotropin [Units/volume] in Serum or Plasma 0.11 uIU/mL 0. 47-5.01 Below low normal [facility] ([facility]) Thyroxine (T4) free [Mass/volume] in Serum or Plasma 1.52 ng/dL 0.93- 1.70 [facility] ([facility]) Cobalamin (Vitamin B12) [Mass/volume] in Serum or Plasma 299 pg/mL 2 32-1245 [facility] ([facility]) ID Date Data Source [id number] 02/24/2020 01:33:00 PM EDT [facility] ([facility]) Name Value Range Interpretation Code Description Data Kayleen rce(s) Supporting Document(s) Uibc 162 ug/dL 112-347 [facility] ([facility]) Tibc 211 ug/dL 250-450 Below low normal [facility] ( [facility]) Iron 49 ug/dL 42-135 [facility] ([facility]) Iron Sat 23 % [facility] ([facility]) ID Date Data Source [id number] 02/24/2020 01:33:00 PM EDT [facility] ([facility]) Name Value Range Interpretation Code Description Data Kayleen rce(s) Supporting Document(s) Ferritin [Mass/volume] in Serum or Plasma 198.7 ng/mL 3.0-105 Above high normal [facility] ([facility]) ID Date Data Source [id number] 02/24/2020 05:37:00 PM EDT [facility] Name Value Range Interpretation Code Description Data Kayleen rce(s) Supporting Document(s) Cobalamin (Vitamin B12) [Mass/volume] in Serum or Plasma 299 PG/ML 232 - 1245 [facility] ID Date Data Source [id number] 02/24/2020 05:37:00 PM EDT [facility] Name Value Range Interpretation Code Description Data Kayleen rce(s) Supporting Document(s) Thyroxine (T4) free index in Serum or Plasma by calculation 1.52 NG/DL 0.93 - 1.70 [facility] ID Date Data Source [id number] 02/24/2020 05:37:00 PM EDT [facility] Name Value Range Interpretation Code Description Data Kayleen rce(s) Supporting Document(s) Thyrotropin [Units/volume] in Serum or Plasma by Detec tion limit <= 0.05 mIU/L 0.11 uIU/mL 0.47 - 5.01 L [facility] ID Date Data Source [id number] 02/24/2020 05:36:00 PM EDT [facility] Name Value Range Interpretation Code Description Data Kayleen rce(s) Supporting Document(s) Ferritin [Mass/volume] in Serum or Plasma 198.7 ng/mL 3.0 - 105 H [facility] ID Date Data Source [id number] 02/24/2020 05:27:00 PM EDT [facility] Name Value Range Interpretation Code Description Data Kayleen rce(s) Supporting Document(s) Iron [Mass/volume] in Serum or Plasma 49 UG/DL 42 - 135 [facility] Iron binding capacity.unsaturated [Mass/volume] in Serum or Plasma 162 UG/DL 112 - 347 [facility] Iron binding capacity [Mass/volume] in Serum or Plasma 211 ug/dL 250 - 450 L [facility] Iron saturation [Mass Fraction] in Serum or Plasma 23 % [facility] Procedure Social History Code Duration Value Status Description Data Source(s ) Smoking 11/12/2020 12:00:00 AM EDT Patient is a former smoker completed Patient is a former smoker [facility] ([facility]) Vital Signs ID Date Data Source UNK Name Value Range Interpretation Code Description Data Source(s) Diastolic blood pressure 82 mm[Hg] 82 mm[Hg] [facility] ([facility]) Respiratory rate 16 /min 16 /min [facility] ( [facility]) Systolic blood pressure 128 mm[Hg] 128 mm[Hg] M [facility] ([facility]) Body height 61 [in_i] 61 [in_i] [facility] ([facility]) 5'1" Oxygen saturation in Arterial blood by Pulse oximetry 93 % 93 % [facility] ([facility]) Body weight 67.133 kg 67.[address] [facility] ([facility]) Body mass index (BMI) [Ratio] 28.0 kg/m2 28.0 k g/m2 [facility] ([facility]) Body surface area Derived from formula 1.66 m2 1.[address] [facility] ([facility]) Heart rate 88 /min 88 /min [facility] ([facility]) Body temperature 97.3 [degF] 97.3 [degF] [facility] ([facility]) Respiratory rate 18 /min 18 /min [facility] ( [facility]) Body weight 148.00 [lb_av] 148.00 [lb_av] [facility] T ([facility]) Diastolic blood pressure 72 mm[Hg] 72 mm[Hg] [facility] ([facility]) Systolic blood pressure 134 mm[Hg] 134 mm[Hg] M [facility] ([facility]) Oxygen saturation in Arterial blood by Pulse oximetry 100 % 100 % [facility] ([facility]) Systolic blood pressure 112 mm[Hg] 112 mm[Hg] M [facility] ([facility]) Diastolic blood pressure 71 mm[Hg] 71 mm[Hg] [facility] ([facility]) Heart rate 100 /min 100 /min [facility] ([facility]) Body temperature 98.0 [degF] 98.0 [degF] [facility] ([facility]) Diastolic blood pressure 82 mm[Hg] 82 mm[Hg] [facility] ([facility]) Heart rate 94 /min 94 /min [facility] ([facility]) Body temperature 98.4 [degF] 98.4 [degF] [facility] ([facility]) Respiratory rate 18 /min 18 /min [facility] ( [facility]) Oxygen saturation in Arterial blood by Pulse oximetry 99 % 99 % [facility] ([facility]) Systolic blood pressure 128 mm[Hg] 128 mm[Hg] M [facility] ([facility]) Heart rate 101 /min 101 /min [facility] ([facility]) Body temperature 99.1 [degF] 99.1 [degF] [facility] ([facility]) Oxygen saturation in Arterial blood by Pulse oximetry 96 % 96 % [facility] ([facility]) Body mass index (BMI) [Ratio] 30.0 kg/m2 30.0 k g/m2 [facility] ([facility]) Body surface area Derived from formula 1.71 m2 1.[address] [facility] ([facility]) Body height 61 [in_i] 61 [in_i] [facility] ([facility]) 5'1" Heart rate 83 /min 83 /min [facility] ([facility]) Body temperature 96.2 [degF] 96.2 [degF] [facility] ([facility]) Body weight 72.122 kg 72.122 kg [facility] ([facility]) Systolic blood pressure 102 mm[Hg] 102 mm[Hg] M [facility] ([facility]) Diastolic blood pressure 60 mm[Hg] 60 mm[Hg] [facility] ([facility]) Respiratory rate 14 /min 14 /min [facility] ( [facility]) Oxygen saturation in Arterial blood by Pulse oximetry 95 % 95 % [facility] ([facility]) Body weight 159.00 [lb_av] 159.00 [lb_av] [facility] T ([facility]) Diastolic blood pressure 60 mm[Hg] 60 mm[Hg] [facility] ([facility]) Heart rate 64 /min 64 /min [facility] ([facility]) Body temperature 97.3 [degF] 97.3 [degF] [facility] ([facility]) Body height 61 [in_i] 61 [in_i] [facility] ([facility]) 5'1" Body weight 158.44 [lb_av] 158.44 [lb_av] [facility] T ([facility]) Body mass index (BMI) [Ratio] 29.9 kg/m2 29.9 k g/m2 [facility] ([facility]) Oxygen saturation in Arterial blood by Pulse oximetry 98 % 98 % [facility] ([facility]) Systolic blood pressure 120 mm[Hg] 120 mm[Hg] M [facility] ([facility]) Oxygen saturation in Arterial blood by Pulse oximetry 96 % 96 % [facility] ([facility]) Systolic blood pressure 102 mm[Hg] 102 mm[Hg] M [facility] ([facility]) Diastolic blood pressure 62 mm[Hg] 62 mm[Hg] [facility] ([facility]) Heart rate 102 /min 102 /min [facility] ([facility]) Body temperature 99.2 [degF] 99.2 [degF] [facility] ([facility]) Systolic blood pressure 123 mm[Hg] 123 mm[Hg] M [facility] ([facility]) Diastolic blood pressure 73 mm[Hg] 73 mm[Hg] [facility] ([facility]) Heart rate 100 /min 100 /min [facility] ([facility]) Body temperature 98.2 [degF] 98.2 [degF] [facility] ([facility]) Respiratory rate 16 /min 16 /min [facility] ( [facility]) Oxygen saturation in Arterial blood by Pulse oximetry 98 % 98 % [facility] ([facility]) Systolic blood pressure 102 mm[Hg] 102 mm[facility]Hg] [facility] Diastolic blood pressure 76 mm[Hg] 76 mm[Hg] [facility] ([facility]) Heart rate 107 /min 107 /min [facility] ([facility]) Body temperature 98.8 [degF] 98.8 [degF] [facility] ([facility]) Oxygen saturation in Arterial blood by Pulse oximetry 96 % 96 % [facility] ([facility]) Body temperature 98.6 [degF] 98.6 [degF] [facility] ([facility]) Oxygen saturation in Arterial blood by Pulse oximetry 96 % 96 % [facility] ([facility]) Systolic blood pressure 102 mm[Hg] 102 mm[Hg] [facility] Diastolic blood pressure 80 mm[Hg] 80 mm[Hg] [facility] ([facility]) Heart rate 87 /min 87 /min [facility] ([facility]) Heart rate 113 /min 113 /min [facility] ([facility]) Body temperature 98.9 [degF] 98.9 [degF] [facility] ([facility]) Oxygen saturation in Arterial blood by Pulse oximetry 98 % 98 % [facility] ([facility]) Systolic blood pressure 90 mm[Hg] 90 mm[Hg] [facility] Oxygen saturation in Arterial blood by Pulse oximetry 98 % 98 % [facility] ([facility]) Body weight 155.00 [lb_av] 155.00 [lb_av] [facility] ([facility]) Body height 61 [in_i] 61 [in_i] [facility] ([facility]) 5'1" Body mass index (BMI) [Ratio] 29.3 kg/m2 29.3 k g/m2 [facility] ([facility]) Body surface area Derived from formula 1.69 m2 1.69 m2 [facility] ([facility]) Body temperature 99.0 [degF] 99.0 [degF] [facility] ([facility]) Respiratory rate 18 /min 18 /min [facility] ( [facility]) Diastolic blood pressure 40 mm[Hg] 40 mm[Hg] [facility] ([facility]) Body weight 70.308 kg 70.308 kg [facility] ([facility]) Heart rate 98 /min 98 /min [facility] ([facility]) Diastolic blood pressure--sitting 52 mm[Hg] 52 mm[Hg] [facility] ([facility]) Manual Left Arm Heart rate 68 /min 68 /min [facility] ([facility]) Body temperature 98.2 [degF] 98.2 [degF] [facility] ([facility]) Oral Respiratory rate 16 /min 16 /min [facility] ( [facility]) Oxygen saturation in Arterial blood by Pulse oximetry 98 % 98 % [facility] ([facility]) Body weight 147.12 [lb_av] 147.12 [lb_av] [facility] T ([facility]) Body weight 66.736 kg 66.736 kg [facility] ([facility]) Body height 61 [in_i] 61 [in_i] [facility] ([facility]) 5'1" Body surface area Derived from formula 1.66 m2 1.66 m2 [facility] ([facility]) Systolic blood pressure--sitting 98 mm[Hg] 98 mm[Hg] [facility] ([facility]) Manual Left Arm Body mass index (BMI) [Ratio] 27.8 kg/m2 27.8 k g/m2 [facility] ([facility]) Systolic blood pressure 132 mm[Hg] 132 mm[Hg] M [facility] ([facility] ) Diastolic blood pressure 88 mm[Hg] 88 mm[Hg] [facility] ([facility] ) Heart rate 84 /min 84 /min [facility] ([facility] ) Body temperature 98.4 [degF] 98.4 [degF] [facility] ([facility] ) Body height 61 [in_i] 61 [in_i] [facility] ([facility] ) 5'1" Body weight 152.25 [lb_av] 152.25 [lb_av] [facility] T ([facility] ) Body mass index (BMI) [Ratio] 28.8 kg/m2 28.8 k g/m2 [facility] ([facility]) Oxygen saturation in Arterial blood by Pulse oximetry 98 % 98 % [facility] ([facility]) Body temperature 98.9 [degF] 98.9 [degF] [facility] ([facility]) Oxygen saturation in Arterial blood by Pulse oximetry 98 % 98 % [facility] ([facility]) Body weight 152.00 [lb_av] 152.00 [lb_av] [facility] T ([facility]) Respiratory rate 16 /min 16 /min [facility] ( [facility]) Body weight 68.947 kg 68.947 kg [facility] ([facility]) Body height 61 [in_i] 61 [in_i] [facility] ([facility]) 5'1" Body mass index (BMI) [Ratio] 28.7 kg/m2 28.7 k g/m2 [facility] ([facility]) Body surface area Derived from formula 1.68 m2 1.68 m2 [facility] ([facility]) Systolic blood pressure 116 mm[Hg] 116 mm[Hg] M [facility] ([facility]) Diastolic blood pressure 80 mm[Hg] 80 mm[Hg] [facility] ([facility]) Heart rate 73 /min 73 /min [facility] ([facility]) Systolic blood pressure 126 mm[Hg] 126 mm[Hg] M [facility] ([facility] ) Diastolic blood pressure 76 mm[Hg] 76 mm[Hg] [facility] ([facility] ) Heart rate 87 /min 87 /min [facility] ([facility] ) Body temperature 97.6 [degF] 97.6 [degF] [facility] ([facility] ) Body height 61 [in_i] 61 [in_i] [facility] ([facility] ) 5'1" Body weight 133.50 [lb_av] 133.50 [lb_av] [facility] T ([facility] ) Body mass index (BMI) [Ratio] 25.2 kg/m2 25.2 k g/m2 [facility] ([facility] ) Oxygen saturation in Arterial blood by Pulse oximetry 98 % 98 % [facility] ([facility]) Respiratory rate 16 /min 16 /min [facility] ( [facility]) Diastolic blood pressure 80 mm[Hg] 80 mm[Hg] [facility] ([facility]) Heart rate 88 /min 88 /min [facility] ([facility]) Oxygen saturation in Arterial blood by Pulse oximetry 99 % 99 % [facility] ([facility]) Body temperature 98.2 [degF] 98.2 [degF] [facility] ([facility]) Systolic blood pressure 115 mm[Hg] 115 mm[Hg] M [facility]ENT ([facility]) Systolic blood pressure 113 mm[Hg] 113 mm[Hg] M [facility] ([facility]) Heart rate 87 /min 87 /min [facility] ([facility]) Body temperature 98.7 [degF] 98.7 [degF] [facility] ([facility]) Oxygen saturation in Arterial blood by Pulse oximetry 99 % 99 % [facility] ([facility]) Diastolic blood pressure 74 mm[Hg] 74 mm[Hg] [facility] ([facility]) Respiratory rate 16 /min 16 /min [facility] ( [facility]) Systolic blood pressure 118 mm[Hg] 118 mm[Hg] M EDENT ([facility]) Diastolic blood pressure 74 mm[Hg] 74 mm[Hg] [facility] ([facility]) Heart rate 86 /min 86 /min [facility] ([facility]) Body temperature 97.2 [degF] 97.2 [degF] [facility] ([facility]) Respiratory rate 18 /min 18 /min [facility] ( [facility]) Oxygen saturation in Arterial blood by Pulse oximetry 96 % 96 % [facility] ([facility]) Body weight 138.00 [lb_av] 138.00 [lb_av] MEDEN T ([facility]) Body weight 62.597 kg 62.597 kg MED[facility] ([facility]) Body height 61 [in_i] 61 [in_i] MED[facility] ([facility]) 5'1" Body mass index (BMI) [Ratio] 26.1 kg/m2 26.1 k g/m2 [facility] ([facility]) Body surface area Derived from formula 1.61 m2 1.61 m2 [facility] ([facility]) Systolic blood pressure 115 mm[Hg] 115 mm[Hg] M EDENT ([facility] ) Diastolic blood pressure 80 mm[Hg] 80 mm[Hg] MED[facility] ([facility], ) Heart rate 78 /min 78 /min [facility] ([facility], ) Respiratory rate 14 /min 14 /min [facility] ( [facility], ) Body height 61 [in_i] 61 [in_i] [facility] ([facility], ) 5'1" Body weight 133.00 [lb_av] 133.00 [lb_av] MEDEN T ([facility], ) Body mass index (BMI) [Ratio] 25.1 kg/m2 25.1 k g/m2 MED[facility] ([facility], ) [place] body weight 105 [lb_av] 105 [lb_av] MEDEN T ([facility], ) Body mass index (BMI) [Ratio] 25.2 kg/m2 25.2 k g/m2 [facility] ([facility] ) Oxygen saturation in Arterial blood by Pulse oximetry 98 % 98 % [facility] ([facility] ) Systolic blood pressure 118 mm[Hg] 118 mm[Hg] M EDENT ([facility] ) Diastolic blood pressure 78 mm[Hg] 78 mm[Hg] [facility] ([facility] ) Heart rate 106 /min 106 /min [facility] ([facility] ) Body height 61 [in_i] 61 [in_i] [facility] ([facility] ) 5'1" Body weight 133.38 [lb_av] 133.38 [lb_av] MEDEN T ([facility] )
[2021-03-18 14:35] VITALS: BP 127/78
[2021-03-18] MEDS: NICOTINE 21MG/24HR 1 EA TRANSDERMAL TD SCH (15:50)
[2021-03-18] MEDS: CARIPRAZINE 1.5MG CAPSULE (VRAYLAR) PO SCH (15:51)
[2021-03-18] MEDS: LITHIUM CARBONATE 300 MG CAP PO SCH ×2 (15:51→21:00)
[2021-03-18] MEDS: ACETAMINOPHEN TAB 650MG DOSE (2X325MG) PO PRN (21:18)
[2021-03-19] MEDS: OLANZapine ORAL DISINTEGRATING TAB 5MG PO PRN ×3 (05:24→20:42)
[2021-03-19 07:13] VITALS: BP 136/88
--- NOTE | 2021-03-19 08:01 | ECGEPIP ---
[facility] - ED Test Date: 2021-03-18 Pat Name: DOROTEO ADAMS Department: Room: - Gender: Female Case Hardener: JAMES : 1985 Requested By: SARAH WYATT Order Number: [id number] Reading MD: Too Borden Measurements Intervals [place] Rate: 71 P: 48 ID: [id number] QRS: 71 QRSD: 98 T: 37 QT: 442 QTc: 480 Interpretive Statements Normal sinus rhythm Prolonged QT BENIGN EARLY REPOLARIZATION NONSPECIFIC T WAVE ABNORMALITY(S) SIMILAR TO 03/17/21 Electronically Signed on 03-19-2021 8:01:29 EDT by Too Borden
[2021-03-19] MEDS: NICOTINE 21MG/24HR 1 EA TRANSDERMAL TD SCH (08:06)
[2021-03-19] MEDS: CARIPRAZINE 1.5MG CAPSULE (VRAYLAR) PO SCH (08:56)
[2021-03-19] MEDS: LITHIUM CARBONATE 300 MG CAP PO SCH ×2 (08:56→20:43)
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
[2021-03-19] MEDS: diphenhydrAMINE 50MG CAP PO PRN ×2 (13:23→20:56)
[2021-03-19] MEDS: ACETAMINOPHEN TAB 650MG DOSE (2X325MG) PO PRN ×2 (13:24→20:56)
[2021-03-19 16:41] VITALS: BP 130/86
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
[2021-03-19 17:03] LABS: GC DNA AMPLIFICATION NEGATIVE (NEGATIVE)
[2021-03-19] MEDS: RIZATRIPTAN MLT 10 MG TAB PO PRN (17:06)
[2021-03-19] MEDS: haloperidoL 5 MG TAB PO PRN (17:57)
[2021-03-19] MEDS: PRAZOSIN 1 MG CAP PO SCH (20:43)
[2021-03-20] MEDS: LITHIUM CARBONATE 300 MG CAP PO SCH ×2 (07:59→20:10)
[2021-03-20] MEDS: NICOTINE 21MG/24HR 1 EA TRANSDERMAL TD SCH (07:59)
[2021-03-20] MEDS: CARIPRAZINE 3MG CAPSULE (VRAYLAR) PO SCH (07:59)
[2021-03-20] MEDS: RIZATRIPTAN MLT 10 MG TAB PO PRN ×2 (10:09→20:11)
[2021-03-20] MEDS: diphenhydrAMINE 50MG CAP PO PRN ×2 (10:09→20:50)
[2021-03-20] MEDS: haloperidoL 5 MG TAB PO PRN (10:53)
[2021-03-20] MEDS ORDERED: LORazepam 2 MG/ML VIAL IM STA (13:14)
[2021-03-20] MEDS ORDERED: HALOPERIDOL 5MG/ML VIAL (J1630 PER 1) IM STA (13:14)
[2021-03-20] MEDS ORDERED: FIORICET TAB PO ONE (13:55)
--- NOTE | 2021-03-20 14:00 | IPNPDOC ---
Date Seen The patient was seen on 03/20/21. Progress Note CODE 25 SUBJECTIVE: Patient was belligerent combative and verbally abusive to [facility] staff and could not be redirected. Patient has been placed on two-point restraints. Psychiatrist has been informed. Patient complains of headache despite taking her Maxalt. She denies any neck pain fever chills nausea vomiting or aura. OBJECTIVE PHYSICAL EXAMINATION: VITAL SIGNS: Please see below. GENERAL: Agitated combative no respiratory distress Pressured speech bilateral hands are restrained HEENT: Face is symmetric CARDIOVASCULAR: S1-S2 regular rate rhythm RESPIRATORY: Clear to auscultation ABDOMINAL: Positive bowel sounds soft nontender nondistended EXTREMITIES: No pitting edema LABORATORY DATA, IMAGING STUDIES, MICROBIOLOGY: Please see below. ASSESSMENT AND PLAN: 35-year-old female Agitation: -Status post code 25 currently restrained with two-point restraints -Patient cannot be redirected and poses harm to herself and staff. -Patient complains of headache, and has been assessed with recommendations for Fioricet as needed Migraines: -Fioricet as needed -Maxalt as needed Hospitalist will sign off VS, I&O, 24H, Fishbone Vital Signs/I&O Vital Signs Date Time Temp Pulse Resp B/P (MAP) Pulse Ox O2 Delivery O2 Flow Rate FiO2 03/19/21 20:43 130/86 03/19/21 16:41 97.1 100 18 100 03/19/21 07:13 Room Air LOREE WEBER MD Mar 20, 2021 14:00
[2021-03-20] MEDS: PRAZOSIN 1 MG CAP PO SCH (20:11)
[2021-03-20] MEDS: traZODone 50 MG TAB PO PRN (20:50)
[2021-03-20] MEDS: OLANZapine ORAL DISINTEGRATING TAB 5MG PO PRN (21:08)
[2021-03-20] MEDS: FIORICET TAB PO PRN (21:10)
[2021-03-21 06:24] VITALS: BP 167/93
[2021-03-21] MEDS: CARIPRAZINE 3MG CAPSULE (VRAYLAR) PO SCH (07:55)
[2021-03-21] MEDS: NICOTINE 21MG/24HR 1 EA TRANSDERMAL TD SCH (07:55)
[2021-03-21] MEDS: LITHIUM CARBONATE 300 MG CAP PO SCH ×2 (07:55→21:24)
[2021-03-21] MEDS: FIORICET TAB PO PRN ×2 (08:16→21:25)
[2021-03-21] MEDS: diphenhydrAMINE 50MG CAP PO PRN (09:39)
[2021-03-21] MEDS: haloperidoL 5 MG TAB PO PRN (09:39)
[2021-03-21] MEDS: OLANZapine ORAL DISINTEGRATING TAB 5MG PO PRN (15:30)
[2021-03-21] MEDS: ACETAMINOPHEN TAB 650MG DOSE (2X325MG) PO PRN (16:02)
[2021-03-21 16:24] VITALS: BP 115/61
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
[2021-03-21] MEDS: PRAZOSIN 1 MG CAP PO SCH (21:24)
[2021-03-22] MEDS: traZODone 50 MG TAB PO PRN (00:15)
[2021-03-22] MEDS: ACETAMINOPHEN TAB 650MG DOSE (2X325MG) PO PRN (00:28)
[2021-03-22 06:27] VITALS: BP 172/88
[2021-03-22] MEDS: CARIPRAZINE 3MG CAPSULE (VRAYLAR) PO SCH (08:33)
[2021-03-22] MEDS: LITHIUM CARBONATE 300 MG CAP PO SCH (08:33)
[2021-03-22] MEDS: FIORICET TAB PO PRN ×2 (08:33→20:47)
[2021-03-22] MEDS: NICOTINE 21MG/24HR 1 EA TRANSDERMAL TD SCH (08:34)
[2021-03-22] MEDS: diphenhydrAMINE 50MG CAP PO PRN ×2 (11:01→20:45)
[2021-03-22] MEDS: haloperidoL 5 MG TAB PO PRN (11:01)
[2021-03-22 12:07] LABS: CHLAMYDIA PHARYNGEAL APTIMA Negative (Negative); GC PHARYNGEAL APTIMA Negative (Negative)
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
[2021-03-22] MEDS: RIZATRIPTAN MLT 10 MG TAB PO PRN (12:28)
--- NOTE | 2021-03-22 13:07 | MHIPN ---
[facility] PROGRESS NOTE DATE: 03/21/2021 VITAL SIGNS: Blood pressure 167/93, pulse 92, temperature 97.5. This is a video assessment. She is seen in the presence of staff. She is in the inpatient psychiatry unit. I am at home. CHIEF COMPLAINT: Says feels good. SUBJECTIVE: Seen for followup. Indicates has been feeling good and that she slept well. Moods are good. MENTAL STATUS EXAMINATION: Neat, cooperative. No agitation. No psychomotor retardation. Mood good. Affect somewhat expansive. She does display some tangentiality in thoughts. Denies any suicidal thoughts or intents. No homicidal ideas or intents. No overt delusions elicited, but these are quite possible "under the surface." Cognition grossly intact. Judgment and insight remain compromised. ASSESSMENT: Bipolar disorder, current episode manic with psychotic features. PLAN: Continue current care, observations. She required a restraint yesterday, as was aggressive, as stated, and not amenable to direction. Responded well to the intervention and had been given Haldol and lorazepam intramuscular. I would suggest continuing with the lithium and Vraylar. She also says had not been taking the lithium and that outpatient clinician was not checking on it. She is to be encouraged to participate in activities in the unit. She will be seeing the clinician tomorrow, and further recommendations to be made.
[2021-03-22 17:45] VITALS: BP 120/80
[2021-03-22] MEDS: OLANZapine ORAL DISINTEGRATING TAB 5MG PO PRN (18:40)
[2021-03-22 20:51] VITALS: BP 130/69
[2021-03-22] MEDS: PRAZOSIN 1 MG CAP PO SCH (20:51)
[2021-03-23 06:45] VITALS: BP 152/86
[2021-03-23] MEDS: diphenhydrAMINE 50MG CAP PO PRN (08:13)
[2021-03-23] MEDS: CARIPRAZINE 3MG CAPSULE (VRAYLAR) PO SCH (08:14)
[2021-03-23] MEDS: NICOTINE 21MG/24HR 1 EA TRANSDERMAL TD SCH (08:15)
[2021-03-23] MEDS ORDERED: VRAY3CAP PO (09:25)
[2021-03-23] MEDS ORDERED: MINI1CAP PO (09:25)
[2021-03-23] MEDS ORDERED: NICO21PAT TD (09:25)
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
== END 2021-03-23 12:30 | disposition home or self-care (01) | DRG 753 ==
LOC: M ED 19:18 → M ED INP 03-18 13:43 → M PSY 03-18 14:27
PROVIDERS: ADMIT Student in an Organized Health Care Education/Training Program; ATTEND Student in an Organized Health Care Education/Training Program
DX: F31.9 Bipolar disorder, unspecified (principal); D69.3 Immune thrombocytopenic purpura; F12.90 Cannabis use, unspecified, uncomplicated; F17.200 Nicotine dependence, unspecified, uncomplicated; F15.90 Other stimulant use, unspecified, uncomplicated; F14.90 Cocaine use, unspecified, uncomplicated; F60.3 Borderline personality disorder; F60.2 Antisocial personality disorder; Z88.5 Allergy status to narcotic agent; Z91.040 Latex allergy status; Z88.6 Allergy status to analgesic agent; Z79.899 Other long term (current) drug therapy; G43.909 Migraine, unspecified, not intractable, without status migrainosus; Z11.3 Encounter for screening for infections with a predominantly sexual mode of transmission

== ENCOUNTER → 2021-07-20 | Outpatient (REF) | payer OTHER ==
[~2021-07-20] MED LIST changes: -FLUC150T PO; +FLUC150T9 PO; -LATU40TA PO; +LATU40TA2 PO; -MONT10TA10 PO; +MONT10TA97 PO; +PRAZ1CAP PO; -SUMA4INJ3; +SUMA4INJ6; +VRAY3CAP PO; +medical marijuana
== END ==
LOC: M LAB REF 15:38
PROVIDERS: ATTEND Surgery
DX: R78.89 Finding of other specified substances, not normally found in blood (principal)

== ENCOUNTER 2023-10-03 14:26 | Inpatient (IN) | payer MEDICAID, OTHER ==
[~2023-10-03] VITALS: Ht 154.9 cm; Wt 61.2 kg
[~2023-10-03 14:26] MED LIST changes: +FOLI1TAB11 PO; +LUMA42CA PO; -MAXA10TA14 PO; -MAXA10TA15 PO; +RIME75TA PO; +RIZA10TA64 PO; +RIZA10TA66 PO; -SUMA4INJ6; +SUMA4PEN
[2023-10-03 15:19] LABS: HEMOGLOBIN 13.6 g/dl (12.0-15.5); MEAN CORPUSCULAR HEMOGLOBIN 29.5 pg (27.0-33.0); MEAN CORPUSCULAR VOLUME 86.8 fl (80.0-96.0); PLATELET COUNT, AUTOMATED 277 10^3/uL (150-450); RED BLOOD COUNT 4.61 10^6/uL (4.00-5.40); WHITE BLOOD COUNT 13.4 10^3/uL (4.0-10.0)
[2023-10-03 15:36] LABS: AMPHETAMINES LEVEL URINE NEGATIVE (NEGATIVE); BARBITURATES URINE NEGATIVE (NEGATIVE); BENZODIAZEPINES URINE NEGATIVE (NEGATIVE); COCAINE METABOLITE URINE NEGATIVE (NEGATIVE); METHADONE URINE NEGATIVE (NEGATIVE); OPIATES URINE NEGATIVE (NEGATIVE); PHENCYCLIDINE URINE NEGATIVE (NEGATIVE)
[2023-10-03 15:37] LABS: CANNABINOIDS URINE POSITIVE (NEGATIVE)
[2023-10-03 15:38] LABS: ETHYL ALCOHOL (ETHANOL) 0.005 % (0.000-0.010)
[2023-10-03 15:39] LABS: SALICYLATE LEVEL < 3.0 MG/DL (<30)
[2023-10-03 15:40] LABS: ALBUMIN 4.7 G/DL (3.2-5.2); ALKALINE PHOSPHATASE 78 U/L (46-116); ALT/SGPT 26 U/L (7.0-40); AST/SGOT 42 U/L (<34); BILIRUBIN,DIRECT 0.2 MG/DL (<0.4); BILIRUBIN,TOTAL 0.7 MG/DL (0.3-1.2); BLOOD UREA NITROGEN 18 MG/DL (9-23); CALCIUM LEVEL 9.7 MG/DL (8.5-10.1); CARBON DIOXIDE LEVEL 24 MMOL/L (20-31); CHLORIDE LEVEL 105 MMOL/L (98-107); GLOMERULAR FILTRATION RATE > 60.0 (>60); GLUCOSE, FASTING 90 MG/DL (60-100); POTASSIUM SERUM 3.2 MMOL/L (3.5-5.1); SODIUM LEVEL 139 MMOL/L (136-145); TOTAL PROTEIN 7.5 G/DL (5.7-8.2)
[2023-10-03 15:42] LABS: THYROID STIMULATING HORMONE 0.165 uIU/ML (0.55-4.78)
[2023-10-03 15:50] LABS: HCG, SERUM QUALITATIVE NEGATIVE (NEGATIVE)
[2023-10-03] MEDS: OLANZapine ORAL DISINTEGRATING TAB 5MG PO ONE (16:34)
[2023-10-03] MEDS: NICOTINE 21MG/24HR 1 EA TRANSDERMAL TD ONE (17:17)
[2023-10-03] MEDS ORDERED: LORazepam 2 MG TAB PO STA (18:36)
[2023-10-03] MEDS: OLANZapine INTRAMUSCULAR 10MG VIAL IM ONE (18:39)
[2023-10-03] MEDS: LORazepam 2 MG/ML 1ML VIAL IM STA (18:39)
[2023-10-03] MEDS ORDERED: OLANZapine ORAL DISINTEGRATING TAB 5MG PO ONE (18:40)
[2023-10-04] MEDS ORDERED: MOM 30ML SUSPENSION UDC PO PRN (02:40)
[2023-10-04] MEDS ORDERED: MAALOX 30 ML SUSP *UDC PO PRN (02:40)
[2023-10-04] MEDS ORDERED: traZODone 50 MG TAB PO PRN (02:40)
[2023-10-04] MEDS: POTASSIUM CHLORIDE 10MEQ SR TABLET PO ONE (03:45)
[2023-10-04] MEDS: ACETAMINOPHEN TAB 650MG DOSE (2X325MG) PO PRN (04:36)
[2023-10-04 04:40] VITALS: BP 123/85; TEMP 97.7; O2SAT 100
[2023-10-04] MEDS ORDERED: POTASSIUM CHLORIDE 10MEQ SR TABLET PO ONE (07:25)
[2023-10-04] MEDS: LITHIUM CARBONATE 300 MG CAP PO SCH (09:00)
[2023-10-04] MEDS: CARIPRAZINE 3MG CAPSULE (VRAYLAR) PO SCH (09:00)
[2023-10-04] MEDS ORDERED: HOME MED LIST COMPLETE! XX SCH (10:00)
[2023-10-04] MEDS ORDERED: FLUTISP NARES (10:00)
[2023-10-04] MEDS ORDERED: FLUC150T9 PO (10:00)
[2023-10-04 10:16] LABS: THYROXINE (T4) 13.3 UG/DL (4.5-10.9)
[2023-10-04 10:20] LABS: FREE THYROXINE INDEX 4.9 % (1.3-4.8); T UPTAKE 37.2 % (22.5-37.0)
[2023-10-04 18:57] VITALS: BP 128/72; TEMP 97.2
[2023-10-04] MEDS: DIVALPROEX 250MG *ER* TAB PO SCH (19:44)
[2023-10-04] MEDS: PRAZOSIN 1 MG CAP PO SCH (19:45)
[2023-10-04] MEDS: NICOTINE 14 MG/24 HR TRANSDERMAL TD SCH (19:47)
[2023-10-05 06:13] VITALS: BP 129/78; TEMP 98.3; O2SAT 99
[2023-10-05] MEDS: IBUPROFEN 200MG TAB PO PRN (06:21)
[2023-10-05] MEDS: OLANZapine 5 MG TAB PO SCH (09:00)
[2023-10-05] MEDS: OLANZapine ORAL DISINTEGRATING TAB 5MG PO PRN (12:46)
[2023-10-05 17:56] VITALS: BP 126/80; TEMP 97.7; O2SAT 100
[2023-10-05] MEDS: diphenhydrAMINE 25MG CAP PO PRN (22:51)
[2023-10-06 06:25] VITALS: BP 149/88; TEMP 97.1; O2SAT 97
[2023-10-06] MEDS: NICOTINE 14 MG/24 HR TRANSDERMAL TD SCH (10:37)
[2023-10-06 16:10] VITALS: BP 132/80; TEMP 97.8; O2SAT 99
[2023-10-07 06:56] VITALS: BP 136/81; TEMP 96.3; TEMP 97.1; O2SAT 94
[2023-10-08 06:28] VITALS: BP 184/108; TEMP 96.8; O2SAT 99
[2023-10-08 06:29] VITALS: BP 160/80
[2023-10-08] MEDS: LITHIUM CARBONATE 300 MG CAP PO SCH (09:44)
[2023-10-08 15:43] VITALS: BP 138/84; TEMP 97.9; O2SAT 100
[2023-10-08 21:15] VITALS: BP 138/62
[2023-10-09 06:23] VITALS: BP 146/76; TEMP 96.8; O2SAT 96
[2023-10-09 18:00] VITALS: BP 144/87; TEMP 97.2; O2SAT 98
[2023-10-09 20:28] VITALS: BP 142/92
[2023-10-10 06:50] VITALS: BP 146/85; TEMP 98; O2SAT 100
[2023-10-10 09:21] LABS: LITHIUM LEVEL 0.21 MMOL/L (1.0-1.20)
[2023-10-10 10:32] LABS: FREE THYROXINE INDEX 4.5 % (1.3-4.8); T UPTAKE 42.5 % (22.5-37.0); THYROXINE (T4) 10.6 UG/DL (4.5-10.9)
[2023-10-10 10:33] LABS: THYROID STIMULATING HORMONE 0.342 uIU/ML (0.55-4.78)
[2023-10-10] MEDS: IBUPROFEN 400MG TAB PO PRN (11:53)
[2023-10-10 18:54] VITALS: BP 157/83; TEMP 97.7
[2023-10-10 20:49] VITALS: BP 139/84
[2023-10-11 06:42] VITALS: BP 136/88; TEMP 97.2; O2SAT 98
[2023-10-11] MEDS ORDERED: LITH300C PO (08:54)
== END 2023-10-11 13:35 | disposition home or self-care (01) | DRG 753 ==
LOC: M ED 14:26 → M ED INP 10-04 02:37 → M PSY 10-04 04:16
PROVIDERS: ADMIT Student in an Organized Health Care Education/Training Program; ATTEND Student in an Organized Health Care Education/Training Program
DX: F31.9 Bipolar disorder, unspecified (principal); E07.9 Disorder of thyroid, unspecified; F60.2 Antisocial personality disorder; F60.3 Borderline personality disorder; F12.10 Cannabis abuse, uncomplicated; J30.2 Other seasonal allergic rhinitis; G43.909 Migraine, unspecified, not intractable, without status migrainosus; F17.200 Nicotine dependence, unspecified, uncomplicated; E87.6 Hypokalemia; R74.01 Elevation of levels of liver transaminase levels; Z91.51 Personal history of suicidal behavior; Z88.5 Allergy status to narcotic agent; Z88.6 Allergy status to analgesic agent; Z79.899 Other long term (current) drug therapy

== ENCOUNTER 2023-10-18 19:36 | Emergency (ER) | payer MEDICAID, OTHER ==
[2023-10-19] MEDS ORDERED: LITH300C PO (23:58)
== END 2023-10-18 20:00 | disposition left against medical advice (07) ==
LOC: M ED 19:36
DX: Z53.21 Procedure and treatment not carried out due to patient leaving prior to being seen by health care provider (principal)

== ENCOUNTER 2023-10-19 12:08 | Emergency (ER) | payer MEDICAID, OTHER, SELFPAY ==
[~2023-10-19] VITALS: Ht 154.9 cm; Wt 62.7 kg
[2023-10-19] MEDS: diphenhydrAMINE 50MG/ML VIAL IM ONE (13:05)
[2023-10-19] MEDS: HALOPERIDOL LACTATE 5MG/ML VIAL IM ONE (13:05)
[2023-10-19] MEDS: LORazepam 2 MG/ML 1ML VIAL IM ONE (13:05)
[2023-10-19 13:13] LABS: HEMATOCRIT 36.8 % (36.0-47.0); HEMOGLOBIN 12.3 g/dl (12.0-15.5); MEAN CORPUSCULAR HGB CONC 33.4 g/dl (32.0-36.5); MEAN CORPUSCULAR VOLUME 89.8 fl (80.0-96.0); PLATELET COUNT, AUTOMATED 306 10^3/uL (150-450); WHITE BLOOD COUNT 17.1 10^3/uL (4.0-10.0)
[2023-10-19 13:26] LABS: AMPHETAMINES LEVEL URINE NEGATIVE (NEGATIVE); BARBITURATES URINE NEGATIVE (NEGATIVE); BENZODIAZEPINES URINE NEGATIVE (NEGATIVE); COCAINE METABOLITE URINE NEGATIVE (NEGATIVE); METHADONE URINE NEGATIVE (NEGATIVE); OPIATES URINE NEGATIVE (NEGATIVE)
[2023-10-19 13:27] LABS: PHENCYCLIDINE URINE NEGATIVE (NEGATIVE)
[2023-10-19 13:29] LABS: ETHYL ALCOHOL (ETHANOL) < 0.003 % (0.000-0.010); SALICYLATE LEVEL < 3.0 MG/DL (<30)
[2023-10-19 13:30] LABS: ALKALINE PHOSPHATASE 65 U/L (46-116); ALT/SGPT 13 U/L (7.0-40); AST/SGOT 11 U/L (<34); BILIRUBIN,DIRECT 0.2 MG/DL (<0.4); BILIRUBIN,TOTAL 0.6 MG/DL (0.3-1.2); BLOOD UREA NITROGEN 14 MG/DL (9-23); CALCIUM LEVEL 9.2 MG/DL (8.5-10.1); CANNABINOIDS URINE POSITIVE (NEGATIVE); CARBON DIOXIDE LEVEL 23 MMOL/L (20-31); CHLORIDE LEVEL 114 MMOL/L (98-107); CREATININE FOR GFR 0.71 MG/DL (0.55-1.30); GLOMERULAR FILTRATION RATE > 60.0 (>60); GLUCOSE, FASTING 114 MG/DL (60-100); HCG, SERUM QUALITATIVE NEGATIVE (NEGATIVE); POTASSIUM SERUM 4.3 MMOL/L (3.5-5.1); SODIUM LEVEL 144 MMOL/L (136-145); TOTAL PROTEIN 6.8 G/DL (5.7-8.2)
[2023-10-19 13:32] LABS: THYROID STIMULATING HORMONE 0.915 uIU/ML (0.55-4.78)
[2023-10-19 22:46] LABS: LITHIUM LEVEL 0.43 MMOL/L (1.0-1.20)
[2023-10-19] MEDS ORDERED: LITH300C PO (23:58)
[2023-10-20] MEDS ORDERED: FERR1TAB8 PO (00:10)
[2023-10-20] MEDS ORDERED: AZIT-12 PO (00:10)
[2023-10-20] MEDS ORDERED: MULT-40 PO (00:10)
[2023-10-20] MEDS ORDERED: FOLI1TAB11 PO (00:10)
[2023-10-20] MEDS ORDERED: IBUP-1764 PO (00:10)
[2023-10-20] MEDS ORDERED: HOME MED LIST COMPLETE! XX SCH ×2 (00:15→08:20)
[2023-10-20] MEDS: IBUPROFEN 600MG TAB PO ONE (04:10)
[2023-10-20] MEDS ORDERED: FLUTICASONE PROP 0.05% NASAL SPRAY 16 GM (FLONASE) NARES PRN (07:35)
[2023-10-20] MEDS: LITHIUM CARBONATE 300 MG CAP PO SCH (08:03)
[2023-10-20] MEDS: AZITHROMYCIN 250MG TABLET PO SCH (08:03)
[2023-10-20] MEDS: FOLIC ACID 1MG TAB PO SCH (08:03)
[2023-10-20] MEDS: NICOTINE 14 MG/24 HR TRANSDERMAL TD PRN (08:04)
[2023-10-20] MEDS: ONDANSETRON 4MG TAB PO ONE (08:42)
[2023-10-20] MEDS: FERROUS SULFATE 325MG TAB PO SCH (09:00)
[2023-10-20] MEDS: hydrOXYzine 50 MG TAB PO PRN (15:31)
[2023-10-21] MEDS: IBUPROFEN 600MG TAB PO PRN (09:05)
[2023-10-22 08:20] VITALS: BP 126/74; TEMP 98; O2SAT 100
== END 2023-10-22 08:23 ==
LOC: M ED 12:08
DX: F29 Unspecified psychosis not due to a substance or known physiological condition (principal); R45.850 Homicidal ideations; R45.851 Suicidal ideations; F31.9 Bipolar disorder, unspecified; J30.2 Other seasonal allergic rhinitis; J30.89 Other allergic rhinitis; Z79.899 Other long term (current) drug therapy; Z88.5 Allergy status to narcotic agent; Z88.2 Allergy status to sulfonamides
CPT/HCPCS: 80048; 80076; 80143; 80178; 80307; 82077; 84443; 84703; 85027; 87635; 93005; 96372; 99285; J1200; J1630; J2060

== ENCOUNTER 2023-12-12 14:59 | Emergency (ER) | payer OTHER ==
[~2023-12-12 14:59] MED LIST changes: +AZIT-12 PO; +FERR1TAB8 PO; +IBUP-1764 PO; +MULT-40 PO
[2023-12-12 15:17] VITALS: BP 117/58; TEMP 97.9; O2SAT 98
[2023-12-12] MEDS: BOOSTRIX VACCINE (TETANUS/DIPHTH/ACEL. PERTUSSIS) 0.5ML SYR IM.IMMUN ONE (16:20)
== END 2023-12-12 18:22 | disposition left against medical advice (07) ==
LOC: M ED 14:59 → EDBD 14:59 → M ED 18:22
DX: S09.21XA Traumatic rupture of right ear drum, initial encounter (principal); S01.311A Laceration without foreign body of right ear, initial encounter; Z53.9 Procedure and treatment not carried out, unspecified reason; Y04.8XXA Assault by other bodily force, initial encounter; Y92.410 Unspecified street and highway as the place of occurrence of the external cause; Y93.9 Activity, unspecified; Y99.9 Unspecified external cause status; G43.909 Migraine, unspecified, not intractable, without status migrainosus; F31.9 Bipolar disorder, unspecified; F17.200 Nicotine dependence, unspecified, uncomplicated; Z79.899 Other long term (current) drug therapy; Z88.5 Allergy status to narcotic agent; Z88.2 Allergy status to sulfonamides; J30.1 Allergic rhinitis due to pollen; J30.2 Other seasonal allergic rhinitis; J30.89 Other allergic rhinitis

== ENCOUNTER 2023-12-19 02:26 | Emergency (ER) | payer OTHER ==
[~2023-12-19] VITALS: Ht 152.4 cm; Wt 56.3 kg
[2023-12-19 02:28] VITALS: BP 125/81; TEMP 98.1; O2SAT 100
== END 2023-12-19 03:33 | disposition left against medical advice (07) ==
LOC: M ED 02:26
DX: Z53.21 Procedure and treatment not carried out due to patient leaving prior to being seen by health care provider (principal)

== ENCOUNTER 2023-12-19 23:49 | Emergency (ER) | payer OTHER ==
[~2023-12-19] VITALS: Ht 167.6 cm; Wt 59.1 kg
[2023-12-20 02:37] LABS: BASO % 0.2 % (0.0-1.0); EOS # 0.4 10^3/uL (0.0-0.5); EOS % 3.3 % (0.0-3.0); HEMATOCRIT 34.8 % (36.0-47.0); HEMOGLOBIN 11.3 g/dl (12.0-15.5); LYMPH # 3.5 10^3/uL (1.5-5.0); LYMPH % 29.6 % (24.0-44.0); MEAN CORPUSCULAR HEMOGLOBIN 29.8 pg (27.0-33.0); MEAN CORPUSCULAR HGB CONC 32.5 g/dl (32.0-36.5); MEAN CORPUSCULAR VOLUME 91.8 fl (80.0-96.0); MONO % 8.2 % (2.0-8.0); NEUTROPHILS % 58.4 % (36.0-66.0); PLATELET COUNT, AUTOMATED 256 10^3/uL (150-450); RED BLOOD COUNT 3.79 10^6/uL (4.00-5.40); WHITE BLOOD COUNT 11.9 10^3/uL (4.0-10.0)
[2023-12-20 02:59] LABS: AMPHETAMINES LEVEL URINE NEGATIVE (NEGATIVE); BARBITURATES URINE NEGATIVE (NEGATIVE); BENZODIAZEPINES URINE NEGATIVE (NEGATIVE); COCAINE METABOLITE URINE NEGATIVE (NEGATIVE); METHADONE URINE NEGATIVE (NEGATIVE); OPIATES URINE NEGATIVE (NEGATIVE); PHENCYCLIDINE URINE NEGATIVE (NEGATIVE)
[2023-12-20 03:01] LABS: CANNABINOIDS URINE POSITIVE (NEGATIVE); ETHYL ALCOHOL (ETHANOL) < 0.003 % (0.000-0.010)
[2023-12-20 03:03] LABS: ALBUMIN 3.4 G/DL (3.2-5.2); ALKALINE PHOSPHATASE 74 U/L (46-116); ALT/SGPT 11 U/L (7.0-40); AST/SGOT < 8 U/L (<34); BILIRUBIN,DIRECT 0.1 MG/DL (<0.4); BILIRUBIN,TOTAL 0.3 MG/DL (0.3-1.2); BLOOD UREA NITROGEN 16 MG/DL (9-23); CALCIUM LEVEL 8.9 MG/DL (8.5-10.1); CARBON DIOXIDE LEVEL 24 MMOL/L (20-31); CHLORIDE LEVEL 111 MMOL/L (98-107); CPK CREATINE PHOSPHOKINASE 132 U/L (34-145); CREATININE FOR GFR 0.57 MG/DL (0.55-1.30); GLOMERULAR FILTRATION RATE > 60.0 (>60); GLUCOSE, FASTING 85 MG/DL (60-100); POTASSIUM SERUM 3.7 MMOL/L (3.5-5.1); SALICYLATE LEVEL < 3.0 MG/DL (<30); SODIUM LEVEL 142 MMOL/L (136-145); TOTAL PROTEIN 5.9 G/DL (5.7-8.2)
[2023-12-20 03:05] LABS: THYROID STIMULATING HORMONE 0.201 uIU/ML (0.55-4.78)
[2023-12-20 03:56] VITALS: BP 122/56; TEMP 97.3; O2SAT 99
== END 2023-12-20 04:08 | disposition home or self-care (01) ==
LOC: M ED 23:49
DX: F43.0 Acute stress reaction (principal); F31.9 Bipolar disorder, unspecified; F19.10 Other psychoactive substance abuse, uncomplicated; F10.10 Alcohol abuse, uncomplicated; Z88.5 Allergy status to narcotic agent; Z88.2 Allergy status to sulfonamides; Z91.048 Other nonmedicinal substance allergy status; Z79.899 Other long term (current) drug therapy